=== PATIENT | male | born 1960 | race Caucasian/White ===

== ENCOUNTER 2025-07-03 18:24 | Emergency (ER) | payer MEDICAID, SELFPAY ==
--- OUTSIDE RECORDS SUMMARY | 2025-06-12 00:52 | XMS_ITS | Encounter Summary ---
Author Organization [employer] Address [address] [place] [address] Care Team Providers Care Wind Turbine Performance Engineer Name Role Phone Unavailable Primary Care Provider Unavailabl e Reason for Referral * Eval and Treat (Routine) - Closed Specialty Diagnoses / Procedures Referred By Contac t Referred To Contact Diagnoses ST elevation myocardial infarction (STEMI), unspecified artery (CMS/HCC) Ischemic dilated cardiomyopathy (CMS/HCC) S/P coronary artery stent placement Paroxysmal atrial fibrillation (CMS/HCC) Acute pulmonary edema (CMS/HCC) Acute hypoxemic respiratory failure (CMS/HCC) Procedures GA OFFICE/OUTPATIENT ESTABLISHED MOD MDM 30 MIN GA OFFICE/OUTPATIENT NEW MODERATE MDM 45 MINUTES Issac Rico MD [address] [place] [phone] Phone: tel: fax: Referral ID Status Reason Start Date Expiration Date Visits Re quested Visits Authorized [id number] Closed 06/27/2025 06/27/2026 1 1 INUOUS MINER OPERATOR HELPER * Eval and Treat (Routine) - Authorized Specialty Diagnoses / Procedures Referred By Contac t Referred To Contact Diagnoses CHB (complete heart block) (CMS/HCC) Procedures GA OFFICE/OUTPATIENT ESTABLISHED MOD MDM 30 MIN GA OFFICE/OUTPATIENT NEW MODERATE MDM 45 MINUTES Issac Rico MD [address] [place] [phone] Phone: tel: fax: Referral ID Status Reason Start Date Expiration Date V isits Requested Visits Authorized [id number] Authorized 06/27/2025 06/27/2026 1 1 INUOUS MINER OPERATOR HELPER * Eval and Treat (Routine) - Authorized Specialty Diagnoses / Procedures Referred By Contac t Referred To Contact Cardiology Diagnoses ST elevation myocardial infarction (STEMI), unspecified artery (CMS/HCC) Ischemic dilated cardiomyopathy (CMS/HCC) S/P coronary artery stent placement Paroxysmal atrial fibrillation (CMS/HCC) Acute pulmonary edema (CMS/HCC) Acute hypoxemic respiratory failure (CMS/HCC) Procedures GA OFFICE/OUTPATIENT ESTABLISHED MOD MDM 30 MIN GA OFFICE/OUTPATIENT NEW MODERATE [place] [address] [place] [phone] Phone: tel: fax: [address] [place] [phone] Phone: tel: fax: Referral ID Status Reason Start Date Expiration Date V isits Requested Visits Authorized [id number] Authorized 06/27/2025 06/27/2026 1 1 INUOUS MINER OPERATOR HELPER * Echocardiography (Routine) - Open Specialty Diagnoses / Procedures [facility] Referred To Contact Radiology Diagnoses Ischemic dilated cardiomyopathy (CMS/HCC) Procedures ECHO COMPLETE - CONTRAST AND STRAIN IF INDICATED ECHO COMPLETE - CONTRAST AND STRAIN IF INDICATED GA ECHO TTHRC R-T 2D W/WOM-MODE COMPL SPEC&COLR D GA MYOCRD STRAIN IMG SPECKLE TRCK ASSID MYOCRD [facility] GA TTE W OR WO MARK JONES Sunthosh, MD [address] [facility] [address] [place] [phone] Phone: tel: fax: [facility] [place] [address] [place] [address] Phone: tel: fax: Referral ID Status Reason Start Date Expiration Date V isits Requested Visits Authorized [id number] Open SGF CTS to Schedule 06/21/2025 07/22/2026 1 1 Reason for Visit * Reason Comments post code * Auth/Cert (Routine) Specialty Diagnoses / Procedures Referred By Contac t Referred To Contact Critical Care Medicine Prince Farr MD [address] [phone] Phone: tel: fax: [facility] 3E Surgical Intensive Care [address] [place] [address] Phone: tel: fax: Referral ID Status Reason Start Date Expiration Date Visits Re quested Visits Authorized [id number] 1 1 Encounter Details Date Type Department Care Team (Late st Contact Info) Description 06/12/2025 1:52 AM CDT - 06/27/2025 1:59 PM CONTINUOUS MINER OPERATOR HELPER Hospital Encounter [facility] 4A Cardiac [address] [place] [address] Doreen Ambrocio MD [address] [facility] [address] [place] [address] Prince Farr MD [address] [place] [address] Charles Magana MD [address] [facility] [address] [place] [address] Zenaida Michel MD [address] [place] [address] Karlie Hamilton MD [address] [place] [address] Ebony Lopez MD [address] [place] [address] Rafi Hackett MD [address] [place] [address] Issac Rico MD [address] [place] [address] ST elevation myocardial infarction involving right coronary artery (CMS/HCC) Discharge Disposition: Left Against Medical Advice Social History Tobacco Use Types Packs/Day Years Used Date Smoking Tobacco: Every Day Cigarettes Food Insecurity Answer Date Recorded Do you find you are eating l ess than you should because you can t pay for food? No 06/21/2025 Transportation Needs Answer Date Record ed Have you gone without health care because you didn t have a way to get there? Or worry about transportation for future doctor visits, lease picker medication, etc.? No 2024 Housing Stability Answer Date Recorded Do you worry you won t have a steady place to sleep or struggle to pay rent or mortgage? No 06/21/2025 Utility Needs Answer Date Recorded Do you have difficulty payin g for utility costs (electric, water or gas bills)? No 06/21/2025 Medication Needs Answer Date Recorded Have you skipped taking medi cation due to cost or worry you can t afford new medications? No 06/21/2025 Feeling Safe Answer Date Recorded Are you in a relationship wi th someone who hurts you emotionally and/or physically? No 06/21/2025 Food Insecurity Answer Date Recorded Patient needs follow up regardin 06/17/2025 Transportation Needs Answer Date Record ed Patient needs follow up regardin 06/17/2025 Utility Needs Answer Date Recorded Patient needs follow up regardin 06/17/2025 Sex and Gender Information Value Date Recorded Sex Assigned at Not on file Legal Sex Male 11:17 PM CDT Gender Identity Not on file Sexual Orientation Not on file documented as of this encounter Last Filed Vital Signs Vital Sign Reading Time Taken Comments Blood Pressure 110/61 06/27/2025 11:45 AM CONTINUOUS MINER OPERATOR HELPER Pulse 75 06/27/2025 11:45 AM CONTINUOUS MINER OPERATOR HELPER Temperature 36.8 C (98.2 F) 06/27/2025 11:45 AM CONTINUOUS MINER OPERATOR HELPER Respiratory Rate 24 06/27/2025 11:45 AM CONTINUOUS MINER OPERATOR HELPER Oxygen Saturation 97% 06/27/2025 11:45 AM CONTINUOUS MINER OPERATOR HELPER Inhaled Oxygen Concentration - - Weight 86.9 kg (191 lb 9.3 oz) 06/27/2025 3:50 A M CONTINUOUS MINER OPERATOR HELPER Height 172.7 cm (5' 8 ) 06/26/2025 3:21 PM CDT Body Mass Index 29.13 06/26/2025 3:21 PM CDT documented in this encounter Discharge Instructions * Discharge Instructions* Luisa Ya RN - 06/12/2025 7:36 AM CDT Cardiopulmonary Rehab Outpatient Referral Information: As part of your ongoing cardiac care, you are being referred to outpatient cardiac rehab. You will be contacted by the facility for appointment date and time. If you do not hear from the facility in a timely manner, please feel free to contact them at the phone number listed below. Cardiopulmonary Rehab Facility: [address] [address] Thank you for participating in your heart failure education. It's really important to know how to take care of your heart! If you have any questions or need help, please ask us anytime. Heart Failure means that your heart does not pump enough blood to meet your body???s needs. Sometimes fluid can back up into your lungs causing shortness of breath. Or fluid can back up into other parts of your body--you may notice swelling in your legs, feet or in your stomach area. As you retain fluid, your weight will go up. You may feel tired and not feel like eating. Most people tend to havethe same symptoms each time their heart failure worsens. Important steps you can take to be healthy Follow a low salt diet by using a salt substitute to season your food, choosing low or no salt foods and not adding additional salt to your meals. Monitor fluid intake. Restrict fluids if ordered by your provider. Take your medications as instructed Try to stay active. Rest when tired. If you are a SMOKER or use TOBACCO products, you are advised to QUIT! Heart failure zones give you an easy way to see changes in your heart failure symptoms. They also tell you when you need to get help. Check every day to see which zone you are in: HEART FAILURE ZONE MANAGEMENT EVERYDAY: Weigh yourself in the morning after going to the bathroom but before eating or drinking. Record your weight on your CHF Daily Record Sheet (in your Living With Heart Failure booklet) and compare it to the prior day???s weight. Take your medicine as prescribed. Check your feet, ankles, legs, and abdomen for swelling. Assess your breathing (was it difficult to lay flat or are you more short of breath). Eat low salt food. Balance activity and rest periods. What Heart Failure Zone are you today? GREEN, YELLOW, or RED? GREEN ZONE: All CLEAR when: Your weight is stable. You have no trouble breathing. You can do your normal activity. You have no changes in your symptoms. YELLOW ZONE: CAUTION! Call your health care provider today: Your Primary Care Team is available 18/03. Your weight goes up 2 pounds in one day or 5-at-7-pound gradual weight gain over a week. You have more swelling in your feet, ankles, legs, or abdomen. Increased shortness of breath. You have a dry cough that does not go away. You use 2 or more pillows or a recliner to breathe better at night and this is new for you. You feel more tired or have less energy than usual. You have SIDE EFFECTS from your medicines. RED ZONE: MEDICAL ALERT EMERGENCY! CALL RIGHT AWAY when: You have unrelieved shortness of breath at rest or struggling to breathe. You have unrelieved chest pain. You have unrelieved wheezing or chest tightness at rest. You are having confusion or cannot think clearly. CALL 911 for severe shortness of breath or chest pain that will not go away. * Attachments The following attachments cannot be sent through Care Everywhere. * Healthy Diet: Heart (Albanian) * Low Sodium Diet (Albanian) * Heart Failure: Restricting Fluids: General Info (Albanian) * Cardiac Rehabilitation (Albanian) * PCI (Percutaneous Coronary Intervention): General Info (Albanian) documented in this encounter Medications at Time of Discharge apixaban (ELIQUIS) 5 mg tablet Take 2 Tablets (10 mg) by mouth 2 times daily for 4 days, THEN take 1 Tablet (5 mg) by mouth 2 times daily. Continue taking until advised by PCP/cardiologis t to stop 76 Tablet 1 06/27/2025 1:30 PM CONTINUOUS MINER OPERATOR HELPER 07/02/2025 aspirin (SNOW CHEWABLE) 81 mg Tablet, Chewable Take 1 Tablet (81 mg) by mouth daily for 17 days. Take until 07/15/2025 only 17 Tablet 06/27/2025 1:30 PM CONTINUOUS MINER OPERATOR HELPER 06/28/2025 furosemide (LASIX) 40 mg tablet Take 1 Tablet (40 mg) by mouth daily. 30 Tablet 1 06/27/2025 1:30 PM CONTINUOUS MINER OPERATOR HELPER 06/28/2025 losartan (COZAAR) 25 mg tablet Take ONE-HALF Tablet (12.5 mg) by mouth daily. 30 Tablet 06/27/2025 1:30 PM CONTINUOUS MINER OPERATOR HELPER 06/28/2025 nitroglycerin (NITROSTAT) 0.4 mg Tablet, Sublingual Place 1 Tablet (0.4 mg) under tongue every 5 minutes as needed for Chest Pain (Not to exceed 3 doses, notify physician if chest pain not relieved, hold if systolic BP less than or equal to 90 mmHg). 25 Tablet 06/27/2025 1:30 PM CONTINUOUS MINER OPERATOR HELPER 06/27/2025 rosuvastatin (CRESTOR) 20 mg tablet Take 1 Tablet (20 mg) by mouth daily at bedtime. 30 Tablet 1 06/27/2025 1:30 PM CONTINUOUS MINER OPERATOR HELPER 06/27/2025 spironolactone (ALDACTONE) 25 mg tablet Take ONE-HALF Tablet (12.5 mg) by mouth daily. 30 Tablet 06/27/2025 1:30 PM CONTINUOUS MINER OPERATOR HELPER 06/28/2025 ticagrelor (BRILINTA) 90 mg Tablet Take 1 Tablet (90 mg) by mouth 2 times daily. 60 Tablet 1 06/27/2025 1:30 PM CONTINUOUS MINER OPERATOR HELPER 06/27/2025 apixaban (ELIQUIS) 5 mg tablet Take 2 Tablets (10 mg) by mouth 2 times daily for 4 days. 16 Tablet 06/27/2025 documented as of this encounter Progress Notes * Chaz Tony RN - 06/27/2025 1:29 PM CST Patient agitated at doctor wanting him to stay radha see EP doctor. Patient adamant about going AMA. Pt does not wait for staff to process him out of the unit and removes both oif his IV's (witnessed by floor staff ACCOUNTING MANAGER) and walks off unit. Pt spouse remains to lease picker medications. AMA and AVS forms not signed by patient or spouse. INUOUS MINER OPERATOR HELPER INUOUS MINER OPERATOR HELPER * Chaz Tony RN - 06/27/2025 12:45 PM CST Patient ambulatory in hallway with [facility] and on 2L O2. Pt ambulated approx 150 ft. Pt maintained sats 93% during the walk. INUOUS MINER OPERATOR HELPER * Ramiro Gtz RT - 06/27/2025 10:46 AM CST Images from the original note were not included. Patient educated regarding Definity ultrasound contrast and verbalizes positive understanding. Definity administered per policy. Patient free from complaints throughout procedure. [facility] PHYSICIAN ORDERS # [id number] [id number] ECHOCARDIOGRAPHY PROTOCOL FOR USE OF ECHOCARDIOGRAPHIC IMAGE ENHANCING AGENT (DEFINITY) This protocol is to be used during an Echocardiogram when a patient is technically difficult to image (as defined by [place] Society of Echocardiography guidelines - the inability to detect two or more contiguous segments in any three of the apical views) or when left ventricular thrombus is suspected. Verify consent to treat has been signed and explain the procedure to the patient. Confirm that the patient does not have a known allergy or hypersensitivity to Definity Perflutren Lipid Microspheres or its components such as polyethylene glycol (PEG). Patient indicated he was not allergic and wanted to have the contrast. Enter order for Definity into Electronic Health Record ???per protocol?? (will require interpreting wire saw operator to sign). Trained Echo Technologists may proceed with use of echocardiographic image enhancing agent. [facility] currently utilizes Definity (perflutren lipid microspheres). Administer Definity per Echocardiography Policy and Procedure #251 Administration of Ultrasound Contrast as follows: 1.3 mL of activated Definity (perflutren lipid microspheres) diluted with 8.7 mL of preservative-free saline in a 10 mL syringe Initial injection of up to 3mL administered slowly (subsequent injection of 1 to 2 mL as needed) References: Definity Prescribing Information package insert; Revised May 2011 http://www.[employer]/pdf/Definity%20US%20PI%52320892-7246% .pdf ASE Consensus Statement - [place] Society of Echocardiography Consensus Statement on the Clinical Applications of Ultrasonic Contrast Agents in Echocardiography; TRICIA, June 2008 http://www.asecho.org/files/public/ContrastConsensusStatement.pdf www.[employer]/how-administration.html Approved by: Medication Management Committee Initiated: 12/26/2011 Revised: 01/02/2024 Expires: INUOUS MINER OPERATOR HELPER * Anyi López FNP - 06/27/2025 8:56 AM CST CARDIOLOGY PROGRESS NOTE Patient: Isaac Franklin / 65 y.o. / male/ 1960 Today's Date: 06/27/2025 Chief complaint/ Admitting Diagnosis STEMI SUBJECTIVE: Mr. Franklin tired. Didn;t sleep well last night or the night before. Leaving today, not staying anylonger. Denies cv complaints. OBJECTIVE: BP (!) 140/67 (BP Location: Right arm, Patient Position (BP): Supine) Pulse 77 Temp 97.1 ??F (36.2 ??C) (Temporal) Resp 22 Ht 5' 8 (1.727 m) Wt 86.9 kg (191 lb 9.3 oz) SpO2 95% BMI 29.13 kg/m?? The range of BP in the last 24 hours is:BP: (107-140)/(60-70) Intake/Output Summary (Last 24 hours) at 06/27/2025 0856 Last data filed at 06/27/2025 0500 Gross per 24 hour Intake 550 ml Output 700 ml Net -150 ml GENERAL: a/o x3, no acute distress, cooperative LUNGS: respirations unlabored, breath sounds coarse. HEART: variable heart tones + murmur Abdomen: soft and non-tender. + BS Extremities: pulses palpable, no edema Data Review: Medications/ Allergies reviewed. Laboratory & imaging data reviewed CBC: Recent Labs 06/25/2545606/26/2553606/27/25 0151 WBC 16.8* 12.9* 13.2* HGB 9.4* 9.5* 9.8* PLT 527* 588* 608* BMP: Recent Labs 06/25/2545606/26/2553606/27/25 0151 GLUCOSE 151* 162* 161* BUN 30* 24* 24* CREAT 0.69 0.68 0.61* NA 135* 135* 135* K 3.6 3.7 3.8 CO2 24 24 23 Cardiac Tele: NSR rate 84 ASSESSMENT: Principal Problem: ST elevation myocardial infarction involving right coronary artery Active Problems: Cardiogenic shock (CMS/HCC) Acute diastolic heart failure Atrial fibrillation (CMS/HCC) Complete heart block (CMS/HCC) Cardiac arrest with ventricular fibrillation (CMS/HCC) CHB (complete heart block) ST elevation myocardial infarction (STEMI) Acute pulmonary edema (CMS/HCC) Acute hypoxemic respiratory failure (CMS/HCC) Lactic acidosis Laboratory test Patient receiving extracorporeal membrane oxygenation (ECMO) Diabetes mellitus S/P coronary artery stent placement Ventricular tachycardia (CMS/HCC) AV block Ischemic dilated cardiomyopathy (CMS/HCC) PLAN: 65-year-old male who initially presented to an outside hospital with inferior STEMI 06/12/25, had V-fib arrest requiring defibrillation and cardiopulmonary resuscitation, intubated and sedated and transferred to earthmoving labourer. He underwent temp pacing wires for complete heart block on EKG by EMS followed by primary PCI of the right coronary artery with IABP support. Post PCI, he had incessant VT with prolonged resuscitation efforts requiring ECMO support. He went back to the earthmoving labourer the following day for new EKG changes associated with acute to subacute in-stent thrombosis which was treated balloon angioplasty under IVUS guidance. Over the past week he has been weaned off inotropes/vasopressors, lidocaine, VA ECMO, IABP, temporary pacemaker, vent. His LVEF was 25% on arrival and most recently improved to 45%. --VT incessant prior to PCI and recurrent post- resolved. Amiodarone discontinued for concerns of bradycardia with AV block. VT likely ischemically mediated with stabilization post PCI. Appreciate EPconsultation. Recommend life vest on discharge. Recheck EF today- limited echo. --Acute hypoxic respiratory failure. Improved. Needs walk test for O2 requirements. --Acute encephalopathy. Resolved. -- Cardiogenic shock- Resolved. Off IABP, ECMO, pressors --Ischemic cardiomyopathy EF 25% on arrival 45% post ECMO. Repeat limited echo. Continue losartan 1/2 dose. Metoprolol discontinued for transient heart block. Lasix reduced to oral. --STEMI- s/p primary PCI prox to mid RCA 06/12/25 ---Acute to subacute instent thrombosis s/p POBA 06/13/25. Continue dual antiplatelet therapy with aspirin 81 mg daily for one month and ticagrelor 90 mg twice daily for at least 1 year since PCI andthen monantiplatelet therapy thereafter unless prohibitive. Continue high intensity statin. ---Acute DVT- Eliquis DVT protocol. -- Paroxysmal atrial fibrillation. Metoprolol d/c'd for transient heart block. Continue Eliquis. >> pt to be on triple therapy continuing aspirin through 1 month post PCI given thrombus burden. Transient AV block with HR 40; event monitor on discharge. Ordered. Cosigned by Aaron Carr MD at 06/27/2025 4:59 PM CONTINUOUS MINER OPERATOR HELPER INUOUS MINER OPERATOR HELPER INUOUS MINER OPERATOR HELPER * Issac Rico MD - 06/26/2025 12:41 PM CDT Images from the original note were not included. Your life is our life's work [facility] Hospitalist/Hospital Medicine Progress Note LOS: 14 days Room/Bed: [facility]/ Patient name: Isaac Franklin Date of : 1960 HOSPITAL COURSE SUMMARY: 65-year-old male admitted to the ICU on 06/12/2025 with inferior STEMI, VF arrest, cardiogenic shock s/p left heart cath with AMBER to the RCA and placement of IABP further complicated by development of refractory VT requiring emergent bedside VA cannulation on 06/12 On 06/13, EKG showed worsening ST elevations and he was taken back to the Intramural Director and found to have acute in-stent thrombosis of the RCA with 100% occlusion now s/p IVUS guided balloon angioplasty and successful removal and reinsertion of IABP. There was concern for poor absorption of DAPT and he was started on Aggrastat gtt.for 18 hours Off pressors and ionotropes since 06/14 Liberated from VA ECMO on 06/17 IABP explanted and extubated 06/19 Heparin gtt discontinued 06/19 ketamine weaned off on 06/21. Hemodynamics are stable TTE on 06/16 with improved EF to 45% Continue diuresis. Renal function remains stable LFTs have normalized Patient was very agitated, and was maintain on ketamine and pracedex gtt. Ketamine has been discontinued since 06/21. Continue Geodon, continue Seroquel, start gabapentin, continue PRN clonazepam. Wean off precedex today. 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 Cardiology is also on board, losartan added by them. Respiratory status is stable. He has a strong cough.Encourage aerobika use when less agitated. Physical therapy recommending IPR at ICU timeline: 06/12: Admitted to the ICU, cardiac arrest, eCPR with pVA cannulation 06/13: Return to the Intramural Director for acute in-stent thrombosis of the RCA s/p angioplasty 06/16: ECMO flows decreased to 2-2.5L 06/17: Liberated from VA ECMO 06/19: Extubated, IABP explanted 06/22: transferred to stepdown Floor timeline 06/23: Mentation improved to AAO x 3 with prompting today, per bedside RN had episodes of agitationovernight; possibly hospital-acquired delirium/owning. Discussed with RN to wean off Precedex gtt gradually. Continuing quetiapine 50 mg every 8 hourly, ziprasidone 20 mg twice daily. Will obtain PULVERIZER MILL OPERATOR evaluation for swallowing safety and discontinue NG tube once consistent p.o. intake with stable mentation. Will consider switching IV heparin gtt. to p.o. apixaban once mentation stabilized. Intermittent low BP, relatively stabilizing at 100-110s/60s-70s. Remains on 3 L O2 via nasal cannula. Leukocytosis of 21.7, Hb relatively stable, creatinine stable. 06/24: Mentation this a.m. remains improved and is AO x 3. Discussed with RN; plan to wean off Precedex gtt. by the afternoon. Underwent MBS and cleared by PULVERIZER MILL OPERATOR for trial of general feeding; NG tube removed and will be monitored for consistent p.o. intake. Will switch IV heparin gtt. to p.o. apixaban; Dopplers obtained due to leukocytosis shows acute left DVT; heparin switched to VTE protocol and apixaban to be started at 10 mg twice daily for 7 days followed by 5 mg twice daily for at least 3 months as likely in the setting of prolonged immobility. Leukocytosis markedly uptrending; 15->21->29.2 in last 3 days. Afebrile however and no new symptoms suggestive of infection; no dysuria, diarrhea, does have difficulty clearing secretions but not worse over the last few days. Obtaining CT chest/abdomen/pelvis and depending on chest appearancewill consider repeating sputum culture, also obtaining repeat blood culture, urinalysis. Also obtaining Dopplers as noted above and peripheral blood smear. 06/25: Blood cultures in process, CT C/A/P pending, blood smear pending. WBC improved to 16.8; possibly related to acute left DVT which was being undertreated with heparin on A-fib protocol. Mentation significantly improving, weaned off from Precedex drip; will discontinue order. EKG today with YCl119 ms; will discontinue ziprasidone and reduce quetiapine dosage to 50 mg twice daily. Tolerating diet and p.o. medications well. 06/26: CT C/A/P was switched to CTA chest, reportedly for technical reasons by radiology. CTA chest shows no PE, diffuse ground glass opacities suggesting edema or atypical pneumonitis. Afebrile, obtain procalcitonin minimal at 0.10, WBC continues to improve to 12.9 on antibiotics hence most likely an infectious cause. Will defer restarting antibiotics. Cardiology managing diuresis; Lasix switchedto oral. Metoprolol discontinued due to transient AV block. QTc remains prolonged at 532, will discontinue quetiapine. Overall vitals stable and mentation significantly improved, PT/OT now recommending home with assistance. Will transfer out of stepdown to medical telemetry. Consultants: IP CONSULT TO CARDIAC REHAB IP CONSULT TO SOCIAL WORK IP CONSULT TO CARDIAC REHAB IP CONSULT TO NUTRITION SERVICES IP CONSULT TO ETHICS RESOURCE IP CONSULT TO IV TEAM IP CONSULT TO ELECTROPHYSIOLOGY IP CONSULT TO COMMUNITY HEALTH WORKER IP CONSULT TO ETHICS RESOURCE IP CONSULT TO CASE MANAGEMENT IP CONSULT TO PASTORAL SERVICES IP CONSULT TO IV TEAM IP CONSULT TO PASTORAL SERVICES SUBJECTIVE: Pt seen and examined at bedside. He is AAO x 3.. He does not voice any new complaints. He is tolerating diet well. He wishes to be discharged soon. OBJECTIVE: Temp (24hrs), Av.8 ??F (36.6 ??C), Min:97.2 ??F (36.2 ??C), Max:98.4 ??F (36.9 ??C) BP 109/60 Pulse 71 Temp 97.2 ??F (36.2 ??C) (Temporal) Resp 17 Ht 5' 8 (1.727 m) Wt 87 kg (191 lb 12.8 oz) SpO2 95% BMI 29.16 kg/m?? Intake/Output Summary (Last 24 hours) at 06/26/2025 1241 Last data filed at 06/26/2025 1100 Gross per 24 hour Intake 730 ml Output 1676 ml Net -946 ml Last documented weight: Weight: 87 kg (191 lb 12.8 oz) (06/26/25 0300) EXAM: General: alert, in no distress Neurologic: Grossly normal HEENT: atraumatic, Normocephalic, without obvious abnormality Lungs: clear to auscultation bilaterally, normal respiratory effort Heart: normal rate, regular rhythm, normal S1, S2, no murmurs, rubs, clicks or gallops Abdomen: Soft, non-tender. Bowel sounds normal. No masses, no organomegaly. Extremities: extremities normal, atraumatic, no cyanosis or edema, intact distal pulses, moves all extremities equally, no edema, redness or tenderness in the calves or thighs, normal strength, normal tone Skin: negative LABORATORY: Recent Labs 06/24/25 0338 06/25/257 06/26/25 0537 WBC 29.2* 16.8* 12.9* HGB 10.8* 9.4* 9.5* HCT 33.5* 28.9* 29.6* PLT 646* 527* 588* Recent Labs 06/24/25 0338 06/25/257 06/26/25 0537 NA 141 135* 135* K 3.7 3.6 3.7 CL 103 100 100 CO2 24 24 24 CA 9.3 8.7* 8.5* BUN 30* 30* 24* CREAT 0.70 0.69 0.68 GLUCOSE 185* 151* 162* No results for input(s): TOTALPROTEIN , ALBUMIN , BILITOTAL , ALKPHOS , AST , ALT in the last 72 hours. No results for input(s): INR , PT in the last 72 hours. Invalid input(s): PTT No results for input(s): BASETROP , 2HRTROP , DELTA , 6HRTROP in the last 72 hours. Diagnostic testing reviewed by me: Medications were reviewed by me. Current Facility-Administered Medications: furosemide (LASIX) tablet 40 mg, 40 mg, Oral, daily, Anyi López, STOCK PLAN ADMINISTRATOR, 40 mg at 06/26/25 0842 spironolactone (ALDACTONE) tablet 12.5 mg, 12.5 mg, Oral, daily, Anyi López, STOCK PLAN ADMINISTRATOR, 12.5 mg at 06/26/25 0842 [COMPLETED] iopamidoL (ISOVUE-300) 61% injection (drawn from multi-use bulk pack) 100 mL, 100 mL, IV, intra-proc ONE time, Issac Rico MD, 100 mL at 06/25/25 2155 [COMPLETED] iopamidoL (ISOVUE-300) 61% injection (drawn from multi-use bulk pack) 100 mL, 100 mL, IV, intra-proc ONE time, Issac Rico MD, 100 mL at 06/25/25 2312 [DISCONTINUED] QUEtiapine (SEROquel) tablet 50 mg, 50 mg, Oral, BID, Issac Rico MD, 50 mg at 06/26/25 0842 apixaban (ELIQUIS) tablet 10 mg, 10 mg, Oral, BID, Trisha, Jeesanul, MD, 10 mg at 06/26/25 0842 [START ON 07/01/2025] apixaban (ELIQUIS) tablet 5 mg, 5 mg, Oral, BID, Issac Rico MD iopamidoL (ISOVUE-300) 61% injection (drawn from multi-use bulk pack) 85 mL, 85 mL, IV, intra-proc ONE time, Issac Rico MD sodium chloride flush injection 10 mL, 10 mL, IV, every 5 minutes PRN, Issac Rico MD losartan (COZAAR) tablet 12.5 mg, 12.5 mg, Oral, daily, Prince Farr MD, 12.5 mg at 06/26/25 0841 clonazePAM (KlonoPIN) tablet 0.25 mg, 0.25 mg, Oral, every 6 hours PRN, Ebony Lopez MD, 0.25 mg at 06/24/25 0334 [DISCONTINUED] gabapentin (NEURONTIN) 300 mg/6 mL (6 mL) oral solution 400 mg, 400 mg, Oral, every 8 hours, Ebony Lopez MD, 400 mg at 06/26/25 0405 [DISCONTINUED] dexmedeTOMIDine in dextrose 5% (PRECEDEX) 400 mcg/100 mL (4 mcg/mL) infusion, 0-0.8 mcg/kg/hr, IV, titrate, Ebony Lopez MD, Stopped at 06/25/25 1509 [DISCONTINUED] metoprolol (LOPRESSOR) 5 mg/5 mL injection 2.5 mg, 2.5 mg, IV, ONE time only, Ebony Lopez MD [DISCONTINUED] metoprolol tartrate (LOPRESSOR) tablet 12.5 mg, 12.5 mg, Oral, BID, Prince Farr MD, 12.5 mg at 06/26/25 0841 sennosides-docusate sodium (SENNA-S) 8.6-50 mg per tablet 1 Tablet, 1 Tablet, Oral, BID, Ebony Lopez MD, 1 Tablet at 06/26/25 0842 [DISCONTINUED] furosemide (LASIX) injection 40 mg, 40 mg, IV, BID, 7 hours apart, Karlie Hamilton MD, 40 mg at 06/25/25 0809 albuterol (PROVENTIL,VENTOLIN) 2.5 mg /3 mL (0.083 %) inhalation solution 2.5 mg, 2.5 mg, Inhalation, resp, every 4 hours PRN, Karlie Hamilotn MD sodium chloride flush injection 5 mL, 5 mL, IV, BID, Karlie Hamilton MD, 5 mL at 06/26/25 0841 dextrose 5 % - sodium chloride 0.9 % infusion, , IV, see admin instructions, Karlie Hamilton MD insulin lispro (HumaLOG,ADMELOG) injection 0-18 Units, 0-18 Units, subCUT, every 4 hours, Karlie Hamilton MD, 3 Units at 06/25/252020 dextrose 5 % in water 250 mL flush bag 25 mL, 25 mL, IV, see admin instructions, Prince Farr MD atropine injection 0.5 mg, 0.5 mg, IV, every 5 minutes PRN, Prince Farr MD nitroglycerin (NITROSTAT) tablet 0.4 mg, 0.4 mg, Sublingual, every 5 minutes PRN, Prince Farr MD polyethylene glycol (MIRALAX) packet 17 Gram, 17 Gram, Oral, BID, Karlie Hamilton MD, 17 Gram at 06/24/25 09 ondansetron (ZOFRAN) 4 mg/2 mL injection 4 mg, 4 mg, IV, every 6 hours PRN, Zenaida Michel MD naloxone (NARCAN) 0.4 mg/mL injection 0.1-0.4 mg, 0.1-0.4 mg, IV, see admin instructions, Prince Farr MD aspirin (SNOW CHEWABLE) chewable tablet 81 mg, 81 mg, Oral, daily, Prince Farr MD, 81 mg at 06/26/25 08 ticagrelor (BRILINTA) tablet 90 mg, 90 mg, Oral, BID, Prince Farr MD, 90 mg at 06/26/25 08 rosuvastatin (CRESTOR) tablet 20 mg, 20 mg, Oral, daily BEDTIME, Prince Farr MD, 20 mg at 06/25/252024 naloxone (NARCAN) 0.4 mg/mL injection 0.1-0.4 mg, 0.1-0.4 mg, IV, see admin instructions, Love Gonzalez NP [] SODIUM BICARBONATE 1 MEQ/ML (8.4 %) INTRAVENOUS SOLUTION (CABINET OVERRIDE), , , , sodium chloride 0.9 % bolus solution 250 mL, 250 mL, IV, ONE time only, Charles Magana MD [] HEPARIN (PORCINE) 1,000 UNIT/ML INJECTION SOLUTION (CABINET OVERRIDE), , , , sodium chloride flush injection 10 mL, 10 mL, IV, BID, Zenaida Michel MD, 10 mL at 06/26/25 0841 Primary discharge diagnosis: ST elevation myocardial infarction involving right coronary artery Other active medical issues also addressed during this admission: Active Hospital Problems Diagnosis Ischemic dilated cardiomyopathy (CMS/HCC) Atrial fibrillation (CMS/HCC) S/P coronary artery stent placement Ventricular tachycardia (CMS/HCC) AV block Acute diastolic heart failure Diabetes mellitus Laboratory test Patient receiving extracorporeal membrane oxygenation (ECMO) Cardiogenic shock (CMS/HCC) Complete heart block (CMS/HCC) ST elevation myocardial infarction involving right coronary artery Cardiac arrest with ventricular fibrillation (CMS/HCC) CHB (complete heart block) ST elevation myocardial infarction (STEMI) Acute pulmonary edema (CMS/HCC) Acute hypoxemic respiratory failure (CMS/HCC) Lactic acidosis Resolved Hospital Problems No resolved problems to display. ASSESSMENT AND PLAN: STEMI involving RCA s/p coronary artery stent placement P/W two days of worsening chest pain, found to have inferior STEMI on EKG Cardiac catheterization revealed 100% thrombotic occlusion of the proximal right coronary artery s/p AMBER he sustained a ventricular fibrillation arrest at the outside hospital, requiring defibrillation and CPR, and was transferred for emergent intervention. Subsequently developed acute in-stent thrombosis with 100% occlusion, s/p IVUS- guided balloon angioplasty Briefly on IV argatroban gtt. due to concern for poor antiplatelet absorption Echo with initial EF 25%, improved on repeat echo 05/2020 2 to 45% Currently chest pain-free - Continue aspirin 81 mg and ticagrelor 90 mg twice daily - Continue metoprolol tartrate 12.5 mg twice daily - Continue rosuvastatin 20 mg nightly - Continue as needed nitroglycerin - Cardiology on board; appreciate recommendations - recommends triple therapy for 1 month from PCI I.e. till 07/15 and thereafter Brilinta plus Eliquis Cardiac Arrest s/p ROSC Ventricular Fibrillation Pt experienced multiple episodes of ventricular fibrillation following cardiac arrest requiring prolonged resuscitation, multiple rounds of defibrillation, and antiarrhythmic therapy including amiodarone and lidocaine. Temporary transvenous pacemaker were utilized for refractory arrhythmia and complete heart block Weaned off lidocaine and later amiodarone was discontinued following electrophysiology consultationwho deemed it to be ischemically mediated Vtach now resolved since revascularization - Will need LifeVest at discharge - Cardiology on board; appreciate recommendations Paroxysmal atrial fibrillation Recent EKG shows A-fib rhythm, currently HR controlled - Was on metoprolol tartrate, now discontinued by cardiology due to transient AV block - Switched IV heparin gtt. to apixaban; currently on therapeutic dose for DVT - Optimize electrolytes - keep K > 4 and Mg > 2 Cardiogenic Shock; resolved Developed cardiogenic shock, requiring high-dose vasopressors and mechanical support with IABP and VA ECMO. Liberated from VA ECMO on 06/17, IABP explanted 06/19 Remains off ionotropes and pressors. Hemodynamics relatively stabilizing - Continue telemetry monitoring Complete Heart Block and Bradyarrhythmias Developed complete heart block during his initial presentation and intervention, managed with a temporary transvenous pacemaker. Subsequently had intermittent 2:1 AV block and junctional escape rhythms, with episodes of bradycardia and artifact on telemetry. After stabilization and discontinuation of amiodarone, no further sustained arrhythmias were noted - Cardiology on board; appreciate recommendations Acute decompensation of heart failure with now midrange ejection fraction Initial echo 06/14 with EF 20-25% in the setting of acute STEMI Repeat echo 06/16 with EF improvement to 45% Volume status improving with diuresis Most recent CXR 06/21 with persistent patchy airspace disease pulmonary edema - Monitor volume status clinically - Continue diuresis; IV Lasix switched to p.o. Lasix 40 mg daily - Monitor renal function and electrolytes while on diuresis - GDMT limited in the setting of borderline BP; for now continue losartan 12.5 mg daily - Strict I's and O's, daily weights, Na < 2 g, Fluids < 1.5 L restricted diet - Cardiology on board; appreciate recommendations Acute Hypoxemic Respiratory Failure Secondary to pulmonary edema currently, had pneumonia earlier Initially requiring intubation and mechanical ventilation, extubated 06/19 Supplemental O2 requirements improving with diuresis CTA chest 06/26 showing diffuse interstitial and pulmonary ground glass opacities suggesting edema or atypical pneumonitis - Diuresis as above - Low concern for infectious pneumonitis has already treated with antibiotics and WBC downtrending off of antibiotics - Frequent oral suctioning for secretion clearance - Wean down supplemental O2 as tolerated Acute metabolic encephalopathy; improving Likely multifactorial in the setting of cardiac arrest, critical illness, recent sedating medications due to agitation In ICU required sedation with precedex, ketamine, ketamine discontinued, Precedex continued and started on quetiapine, ziprasidone and gabapentin Currently mentation AAO x 3 with prompting however per RN, increased episodes of agitation overnight; likely sundowning/hospital-acquired delirium EKG 06/25 with QTc 553 ms, quetiapine and ziprasidone gradually discontinued Was on Precedex gtt., now discontinued - Discontinue quetiapine - Discontinue ziprasidone - Discontinue gabapentin - Continue as needed clonazepam - Delirium precautions Dysphagia; improving Hx ileus Likely in the setting of encephalopathy and critical illnesses Also had ileus in the ICU, resolved with Relistor PULVERIZER MILL OPERATOR initially kept patient n.p.o., after MBS 06/24 has cleared for diet, NG tube removed - Appreciate PULVERIZER MILL OPERATOR - Tolerating current diet well; will monitor - Continue senna and MiraLAX Diabetes Mellitus HbA1c 6.3%. - Continue sliding scale correctional insulin; will switch to ACHS once able to take p.o. - Monitor POC BG and adjust insulin as appropriate Streptococcus pneumoniae and Haemophilus influenzae PNA Leukocytosis; improving PNA positive PCR for Streptococcus pneumoniae and Haemophilus influenzae. Treated empirically with vancomycin and cefepime for 72 hours, then narrowed to ceftriaxone to complete 7-day course Initially WBC improving, however now trending up 15->21->29.2 Doppler 06/24 showed acute left DVT however unclear if sole trencher driver of leukocytosis - no new infectious symptoms currently although does have difficulty clearing secretions CT C/A/P was ordered however changed to CTA chest for unclear technical reasons by radiology CTA chest with diffuse GGO suggestive of edema, less likely infectious etiology given consistently improving leukocytosis off of antibiotics Peripheral blood smear with leukocytes with toxic granulations, myeloid precursors or blasts not seen, platelets increased in number - Monitor fever curve, leukocyte count - Repeat blood cultures in process; no growth in 48 hours - Repeat UA not yet collected - Address VTE as below; if leukocytosis does not improve then will consider infectious disease consultation Thrombocytosis Likely reactive due to above - Will monitor Acute left DVT Seen on workup for leukocytosis - Transitioned from IV heparin to p.o. apixaban 10 mg twice daily from tonight for 7 days and thereafter 5 mg twice daily Normocytic anemia Hb 9.9; relatively stable - Will monitor - Outpatient workup with PCP Nutrition Status: Provider Assessment/Plan: Symptoms/Signs/Physical Exam: Poor Appetite and Weight Loss Etiology: Acute illness and Chronic illness Nutrition Treatment Plan: - Current Diet and/or Nutritional Supplementation ordered: DIET GENERAL Effective Now - Daily weights Impact of Malnutrition on patient condition and outcomes: Increased risk of infection and Delayed recovery DVT prophylaxis: DVT Pharmacologic Prophylaxis: heparin in 0.45% NaCl 25,000 unit/250 mL infusion [[id number]] Code status: Full Code Outpatient follow up: PCP, Cardiology Anticipated Disposition Location: Likely home Timeframe: 06/27/2025 Criteria: Weaned down from supplemental O2/stable O2 requirements, stable leukocytosis, stable mentation and oral intake MDM complexity: [] Mild [x] Moderate [] High Issac Rico MD 06/26/2025, 12:41 PM * Anyi López FNP - 06/26/2025 10:46 AM CDT CARDIOLOGY PROGRESS NOTE Patient: Isaac Franklin / 65 y.o. / male/ 1960 Today's Date: 06/26/2025 Chief complaint/ Admitting Diagnosis STEMI SUBJECTIVE: Mr. Franklin tired. Didn;t sleep well last night. Denies cv complaints. OBJECTIVE: BP (!) 119/90 (BP Location: Right arm, Patient Position (BP): Supine) Comment: RN notified Pulse 74 Temp 98.2 ??F (36.8 ??C) (Temporal) Resp 16 Ht 5' 8 (1.727 m) Wt 87 kg (191 lb 12.8 oz) SpO2 93% BMI 29.16 kg/m?? The range of BP in the last 24 hours is:BP: (90-139)/(53-90) Intake/Output Summary (Last 24 hours) at 06/26/2025 1046 Last data filed at 06/26/2025 0800 Gross per 24 hour Intake 730 ml Output 1376 ml Net -646 ml GENERAL: a/o x3, no acute distress, cooperative LUNGS: respirations unlabored, breath sounds coarse. HEART: variable heart tones + murmur Abdomen: soft and non-tender. + BS Extremities: pulses palpable, no edema Data Review: Medications/ Allergies reviewed. Laboratory & imaging data reviewed CBC: Recent Labs 06/24/2533706/25/2545606/26/25 0537 WBC 29.2* 16.8* 12.9* HGB 10.8* 9.4* 9.5* PLT 646* 527* 588* BMP: Recent Labs 06/24/2533706/25/2545606/26/25 0537 GLUCOSE 185* 151* 162* BUN 30* 30* 24* CREAT 0.70 0.69 0.68 NA 141 135* 135* K 3.7 3.6 3.7 CO2 24 24 24 Cardiac Tele: NSR rate 84 ; transient heart block at during 7:00 hour this am. ASSESSMENT: Principal Problem: ST elevation myocardial infarction involving right coronary artery Active Problems: Cardiogenic shock (CMS/HCC) Acute diastolic heart failure Atrial fibrillation (CMS/HCC) Complete heart block (CMS/HCC) Cardiac arrest with ventricular fibrillation (CMS/HCC) CHB (complete heart block) ST elevation myocardial infarction (STEMI) Acute pulmonary edema (CMS/HCC) Acute hypoxemic respiratory failure (CMS/HCC) Lactic acidosis Laboratory test Patient receiving extracorporeal membrane oxygenation (ECMO) Diabetes mellitus S/P coronary artery stent placement Ventricular tachycardia (CMS/HCC) AV block Ischemic dilated cardiomyopathy (CMS/HCC) PLAN: 65-year-old male who initially presented to an outside hospital with inferior STEMI 06/12/25, had V-fib arrest requiring defibrillation and cardiopulmonary resuscitation, intubated and sedated and transferred to earthmoving labourer. He underwent temp pacing wires for complete heart block on EKG by EMS followed by primary PCI of the right coronary artery with IABP support. Post PCI, he had incessant VT with prolonged resuscitation efforts requiring ECMO support. He went back to the earthmoving labourer the following day for new EKG changes associated with acute to subacute in-stent thrombosis which was treated balloon angioplasty under IVUS guidance. Over the past week he has been weaned off inotropes/vasopressors, lidocaine, VA ECMO, IABP, temporary pacemaker, vent. His LVEF was 25% on arrival and most recently improved to 45%. --VT- resolved. Amiodarone discontinued for concerns of bradycardia with AV block. VT likely ischemically mediated with stabilization post PCI. Appreciate EP consultation. Recommend life vest on discharge. --Acute hypoxic respiratory failure. Improving- NC weaned down to 2L this am. --Acute encephalopathy. Resolved. -- Cardiogenic shock- Resolved. Off IABP, ECMO, pressors --Ischemic cardiomyopathy EF 45%. Continue losartan 1/2 dose. Stop metoprolol for transient heart block. Lasix reduced to oral. --STEMI- s/p primary PCI prox to mid RCA 06/12/25 ---Acute to subacute instent thrombosis s/p POBA 06/13/25. Continue dual antiplatelet therapy with aspirin 81 mg daily for one month and ticagrelor 90 mg twice daily for at least 1 year since PCI andthen monantiplatelet therapy thereafter unless prohibitive. Continue high intensity statin. ---Acute DVT- Eliquis DVT protocol. -- Paroxysmal atrial fibrillation. D/C metoprolol for transient heart block and continue Eliquis >> pt will be on triple therapy continuing aspirin through 1 month post PCI given thrombus burden. Transient AV block with HR 40; patient was awake but asymptomatic. D/C metoprolol and continue observation. Cosigned by Aaron Carr MD at 06/27/2025 4:57 PM CONTINUOUS MINER OPERATOR HELPER INUOUS MINER OPERATOR HELPER * Levi Fernandez, RT - 06/25/2025 8:17 PM CDT Order was changed from a C/A/P with contrast to a CTA chest per Dr. Wharton. Dr. hWarton was notified that Pt was not bowel prepped for CT scan. Personal Care Service Provider images were captured on the initial C/A/P order. * Sol Rice, RD - 06/25/2025 3:40 PM CDT Nutritional Status/Recommendations/Plan for Follow up: Po intake 40- 60% per doc flow indicator [place] requests/ preferences Estimated Needs: Estimated Energy Target: 1846-0204 (06/14/25 09) Estimated Protein Target: 105-140 (06/14/25 09) Estimated Fluid Target : 1750 (06/14/25 09) Nutrition Energy Formula: Calories per kilogram (06/14/25899) Weight Used for Formula: [place] weight (06/14/25899) Current diet/nutrition support: DIET GENERAL Effective Now Food/Meal: Breakfast (06/25/25857),Intake (%): (!) 40% (06/25/25857) Weight status/changes: Height: 5' 8 (172.7 cm) (06/22/25 1900) Weight: 88.1 kg (194 lb 3.6 oz) (06/25/25 0330) Last seven weights (if available) from 05/28/25 1541 to 06/25/25 1540 (Last 7 readings): Weight Weight Method 06/25/25 0330 88.1 kg (194 lb 3.6 oz) Actual 06/22/25 1900 86 kg (189 lb 9.5 oz) Actual 06/21/25 0300 94 kg (207 lb 3.7 oz) Actual 06/20/25 0300 93.1 kg (205 lb 4 oz) Actual 06/19/25 0400 98.5 kg (217 lb 2.5 oz) -- 06/18/25 0454 99.9 kg (220 lb 3.8 oz) Actual 06/17/25 0614 107.6 kg (237 lb 3.4 oz) Actual 06/17/25 0300 107.6 kg (237 lb 3.4 oz) Actual Admission:Weight: 107.4 kg (236 lb 12.4 oz) (06/13/25 06)Weight Method: Actual (06/13/25599) Body mass index is 29.53 kg/m??. [place] body weight: 68.4 kg (150 lb 12.7 oz) Adjusted ideal body weight: 76.3 kg (168 lb 2.7 oz) Nutrition Focused Exam Physical Findings- Summary: Malnutrition Nutrition Diagnosis: (at risk) (06/14/25899) Subcutaneous Fat Loss Assessment: No findings (06/14/25899) Muscle Wasting Assessment: No findings (06/14/25899) Edema: Normal contour with a barely perceptible pit (no findings) (06/14/25899) Hand Refrigeration Engine Operator: Unable to assess (sedated) (06/14/25899) Percentage of Energy: Other (see comments) (meeting <50% estimated needs ~2 days) (06/14/25899) Percentage of Weight Loss: No history of significant wt loss (06/14/25899) Additional assessment indices: Evaristo Score: 20 (06/25/25 0707) Last Bowel Movement (mm/dd/yyyy): 06/25/25 (06/25/25 1330) Stool Consistency - Reference [place] Stool Chart: soft - (type 4/5) (06/25/25 1330) Bowel Sounds: All Quadrants: hypoactive (06/23/25 2300) Allergies No Known Allergies Labs: Lab Results Component Value Date/Time NA 135 (L) 06/25/2025 04:57 AM K 3.6 06/25/2025 04:57 AM CL 100 06/25/2025 04:57 AM CO2 24 06/25/2025 04:57 AM CA 8.7 (L) 06/25/2025 04:57 AM BUN 30 (H) 06/25/2025 04:57 AM CREAT 0.69 06/25/2025 04:57 AM GLUCOSE 151 (H) 06/25/2025 04:57 AM TOTALPROTEIN 6.9 06/23/2025 02:49 AM ALBUMIN 2.9 (L) 06/23/2025 02:49 AM BILITOTAL 0.7 06/23/2025 02:49 AM ALKPHOS 153 (H) 06/23/2025 02:49 AM AST 24 06/23/2025 02:49 AM ALT 23 06/23/2025 02:49 AM ANIONGAP 11 06/25/2025 04:57 AM Lab Results Component Value Date/Time HGBA1C 6.3 (H) 06/14/2025 03:08 AM Lab Results Component Value Date/Time RDW 13.1 06/25/2025 04:57 AM No results found for: CRP , CRPHS Lab Results Component Value Date/Time MG 2.3 06/23/2025 02:49 AM Lab Results Component Value Date/Time CA 8.7 (L) 06/25/2025 04:57 AM PO4 4.0 06/23/2025 02:49 AM No results found for: GIJV046 , VITD25 , RMGP63SDZ8 , ACXH11SFU8 , LWUH36DCDD , HMCT3HEKWETE , DCKY2AHZGJZR , VITAMINDTO , DQJFDQU199 No results found for: HEMTSWPL01 No results found for: FOLATE , FOLATERBC No results found for: ZINC * Issac Rico MD - 06/25/2025 3:06 PM CDT Images from the original note were not included. Your life is our life's work [facility] Hospitalist/[facility] Medicine Progress Note LOS: 13 days Room/Bed: 4257/01 Patient name: Isaac Franklin Date of : 1960 HOSPITAL COURSE SUMMARY: 65-year-old male admitted to the ICU on 06/12/2025 with inferior STEMI, VF arrest, cardiogenic shock s/p left heart cath with AMBER to the RCA and placement of IABP further complicated by development of refractory VT requiring emergent bedside VA cannulation on 06/12 On 06/13, EKG showed worsening ST elevations and he was taken back to the Intramural Director and found to have acute in-stent thrombosis of the RCA with 100% occlusion now s/p IVUS guided balloon angioplasty and successful removal and reinsertion of IABP. There was concern for poor absorption of DAPT and he was started on Aggrastat gtt.for 18 hours Off pressors and ionotropes since 06/14 Liberated from VA ECMO on 06/17 IABP explanted and extubated 06/19 Heparin gtt discontinued 06/19 ketamine weaned off on 06/21. Hemodynamics are stable TTE on 06/16 with improved EF to 45% Continue diuresis. Renal function remains stable LFTs have normalized Patient was very agitated, and was maintain on ketamine and pracedex gtt. Ketamine has been discontinued since 06/21. Continue Geodon, continue Seroquel, start gabapentin, continue PRN clonazepam. Wean off precedex today. 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 Cardiology is also on board, losartan added by them. Respiratory status is stable. He has a strong cough.Encourage aerobika use when less agitated. Physical therapy recommending IPR at ICU timeline: 06/12: Admitted to the ICU, cardiac arrest, eCPR with pVA cannulation 06/13: Return to the Intramural Director for acute in-stent thrombosis of the RCA s/p angioplasty 06/16: ECMO flows decreased to 2-2.5L 06/17: Liberated from [facility] ECMO 06/19: Extubated, IABP explanted 06/22: transferred to stepdown Floor timeline 06/23: Mentation improved to AAO x 3 with prompting today, per bedside RN had episodes of agitationovernight; possibly hospital-acquired delirium/. Discussed with RN to wean off Precedex gtt gradually. Continuing quetiapine 50 mg every 8 hourly, ziprasidone 20 mg twice daily. Will obtain PULVERIZER MILL OPERATOR evaluation for swallowing safety and discontinue NG tube once consistent p.o. intake with stable mentation. Will consider switching IV heparin gtt. to p.o. apixaban once mentation stabilized. Intermittent low BP, relatively stabilizing at 100-110s/60s-70s. Remains on 3 L O2 via nasal cannula. Leukocytosis of 21.7, Hb relatively stable, creatinine stable. 06/24: Mentation this a.m. remains improved and is AO x 3. Discussed with RN; plan to wean off Precedex gtt. by the afternoon. Underwent MBS and cleared by PULVERIZER MILL OPERATOR for trial of general feeding; NG tube removed and will be monitored for consistent p.o. intake. Will switch IV heparin gtt. to p.o. apixaban; Dopplers obtained due to leukocytosis shows acute left DVT; heparin switched to VTE protocol and apixaban to be started at 10 mg twice daily for 7 days followed by 5 mg twice daily for at least 3 months as likely in the setting of prolonged immobility. Leukocytosis markedly uptrending; 15->21->29.2 in last 3 days. Afebrile however and no new symptoms suggestive of infection; no dysuria, diarrhea, does have difficulty clearing secretions but not worse over the last few days. Obtaining CT chest/abdomen/pelvis and depending on chest appearancewill consider repeating sputum culture, also obtaining repeat blood culture, urinalysis. Also obtaining Dopplers as noted above and peripheral blood smear. 06/25: Blood cultures in process, CT C/A/P pending, blood smear pending. WBC improved to 16.8; possibly related to acute left DVT which was being undertreated with heparin on A-fib protocol. Mentation significantly improving, weaned off from Precedex drip; will discontinue order. EKG today with [id number] ms; will discontinue ziprasidone and reduce quetiapine dosage to 50 mg twice daily. Tolerating diet and p.o. medications well. Consultants: IP CONSULT TO CARDIAC REHAB IP CONSULT TO SOCIAL WORK IP CONSULT TO CARDIAC REHAB IP CONSULT TO NUTRITION SERVICES IP CONSULT TO ETHICS RESOURCE IP CONSULT TO IV TEAM IP CONSULT TO ELECTROPHYSIOLOGY IP CONSULT TO COMMUNITY HEALTH WORKER IP CONSULT TO ETHICS RESOURCE IP CONSULT TO CASE MANAGEMENT IP CONSULT TO PASTORAL SERVICES IP CONSULT TO IV TEAM IP CONSULT TO PASTORAL SERVICES SUBJECTIVE: Pt seen and examined at bedside. He is AAO x 3 with prompting currently. He does not voice any new complaints. He is tolerating diet well. Significant other present at bedside; updated. OBJECTIVE: Temp (24hrs), Av.7 ??F (36.5 ??C), Min:97 ??F (36.1 ??C), Max:98.6 ??F (37 ??C) BP 106/85 Pulse 73 Temp 97.4 ??F (36.3 ??C) (Temporal) Resp 21 Ht 5' 8 (1.727 m) Wt 88.1kg (194 lb 3.6 oz) SpO2 (!) 79% BMI 29.53 kg/m?? Intake/Output Summary (Last 24 hours) at 06/25/2025 1507 Last data filed at 06/25/2025 1330 Gross per 24 hour Intake 822.24 ml Output 476 ml Net 346.24 ml Last documented weight: Weight: 88.1 kg (194 lb 3.6 oz) (06/25/25 0330) EXAM: General: alert, in no distress Neurologic: Grossly normal HEENT: atraumatic, Normocephalic, without obvious abnormality Lungs: clear to auscultation bilaterally, normal respiratory effort Heart: normal rate, regular rhythm, normal S1, S2, no murmurs, rubs, clicks or gallops Abdomen: Soft, non-tender. Bowel sounds normal. No masses, no organomegaly. Extremities: extremities normal, atraumatic, no cyanosis or edema, intact distal pulses, moves all extremities equally, no edema, redness or tenderness in the calves or thighs, normal strength, normal tone Skin: negative LABORATORY: Recent Labs 06/23/2524806/24/2533706/25/25456 WBC 21.7* 29.2* 16.8* HGB 9.9* 10.8* 9.4* HCT 30.1* 33.5* 28.9* PLT 462* 646* 527* Recent Labs 06/23/2524806/24/2533706/25/25456 NA 140 141 135* K 3.6 3.7 3.6 CL 104 103 100 CO2 23 24 24 CA 8.8 9.3 8.7* BUN 28* 30* 30* CREAT 0.76 0.70 0.69 GLUCOSE 195* 185* 151* Recent Labs 06/23/25248 TOTALPROTEIN 6.9 ALBUMIN 2.9* BILITOTAL 0.7 ALKPHOS 153* AST 24 ALT 23 No results for input(s): INR , PT in the last 72 hours. Invalid input(s): PTT No results for input(s): BASETROP , 2HRTROP , DELTA , 6HRTROP in the last 72 hours. Diagnostic testing reviewed by me: Medications were reviewed by me. Current Facility-Administered Medications: QUEtiapine (SEROquel) tablet 50 mg, 50 mg, Oral, BID, Issac Rico MD [START ON 06/26/2025] furosemide (LASIX) tablet 40 mg, 40 mg, Oral, daily, Anyi López FNP spironolactone (ALDACTONE) tablet 12.5 mg, 12.5 mg, Oral, daily, Anyi López FNP [] heparin in 0.45% NaCl 25,000 unit/250 mL infusion, 24 Units/kg/hr, IV, titrate, Issac Rico MD, Stopped at 06/24/25 1900 apixaban (ELIQUIS) tablet 10 mg, 10 mg, Oral, BID, Issac Rico MD, 10 mg at 06/25/25 0808 [START ON 07/01/2025] apixaban (ELIQUIS) tablet 5 mg, 5 mg, Oral, BID, Issac Rico MD iopamidoL (ISOVUE-300) 61% injection (drawn from multi-use bulk pack) 85 mL, 85 mL, IV, intra-proc ONE time, Issac Rico MD sodium chloride flush injection 10 mL, 10 mL, IV, every 5 minutes PRN, Issac Rico MD [DISCONTINUED] heparin injection 2,600 Units, 30 Units/kg, IV, ONE time only, Issac Rico MD gabapentin (NEURONTIN) 300 mg/6 mL (6 mL) oral solution 400 mg, 400 mg, Oral, every 8 hours, Ebony Lopez MD, 400 mg at 06/25/25 1215 dexmedeTOMIDine in dextrose 5% (PRECEDEX) 400 mcg/100 mL (4 mcg/mL) infusion, 0- 0.8 mcg/kg/hr, IV, titrate, Ebony Lopez MD, Last Rate: 5.27 mL/hr at 06/25/25 0223, 0.2 mcg/kg/hr at 06/25/25 0223 losartan (COZAAR) tablet 12.5 mg, 12.5 mg, Oral, daily, Prince Farr MD, 12.5 mg at 06/25/25 0807 metoprolol (LOPRESSOR) 5 mg/5 mL injection 2.5 mg, 2.5 mg, IV, ONE time only, Ebony Lopez MD clonazePAM (KlonoPIN) tablet 0.25 mg, 0.25 mg, Oral, every 6 hours PRN, Ebony Lopez MD, 0.25 mg at 06/24/25 0334 metoprolol tartrate (LOPRESSOR) tablet 12.5 mg, 12.5 mg, Oral, BID, Prince Farr MD, 12.5 mg at 06/25/25 0807 [DISCONTINUED] heparin in 0.45% NaCl 25,000 unit/250 mL infusion, 22 Units/kg/hr, IV, titrate, Issac Rico MD, Stopped at 06/24/25 1712 sennosides-docusate sodium (SENNA-S) 8.6-50 mg per tablet 1 Tablet, 1 Tablet, Oral, BID, Ebony Lopez MD, 1 Tablet at 06/25/25 0807 [DISCONTINUED] QUEtiapine (SEROquel) tablet 50 mg, 50 mg, Oral, every 8 hours, Ebony Lopez MD, 50 mg at 06/25/25 0541 [DISCONTINUED] ziprasidone (GEODON) capsule 20 mg, 20 mg, Oral, BID WITH meals, Ebony Lopez MD, 20 mg at 06/25/25 0807 [DISCONTINUED] furosemide (LASIX) injection 40 mg, 40 mg, IV, BID, 7 hours apart, Karlie Hamilton MD, 40 mg at 06/25/25 0809 albuterol (PROVENTIL,VENTOLIN) 2.5 mg /3 mL (0.083 %) inhalation solution 2.5 mg, 2.5 mg, Inhalation, resp, every 4 hours PRN, Karlie Hamilton MD sodium chloride flush injection 5 mL, 5 mL, IV, BID, Karlie Hamilton MD, 5 mL at 06/25/25 0810 dextrose 5 % - sodium chloride 0.9 % infusion, , IV, see admin instructions, Karlie Hamilton MD insulin lispro (HumaLOG,ADMELOG) injection 0-18 Units, 0-18 Units, subCUT, every 4 hours, Karlie Hamilton MD, 6 Units at 06/24/25 1649 dextrose 5 % in water 250 mL flush bag 25 mL, 25 mL, IV, see admin instructions, Prince Farr MD atropine injection 0.5 mg, 0.5 mg, IV, every 5 minutes PRN, Prince Farr MD nitroglycerin (NITROSTAT) tablet 0.4 mg, 0.4 mg, Sublingual, every 5 minutes PRN, Prince Farr MD polyethylene glycol (MIRALAX) packet 17 Gram, 17 Gram, Oral, BID, Karlie Hamilton MD, 17 Gram at 06/24/25 0901 ondansetron (ZOFRAN) 4 mg/2 mL injection 4 mg, 4 mg, IV, every 6 hours PRN, Zenaida Michel MD naloxone (NARCAN) 0.4 mg/mL injection 0.1-0.4 mg, 0.1-0.4 mg, IV, see admin instructions, Prince Farr MD aspirin (SNOW CHEWABLE) chewable tablet 81 mg, 81 mg, Oral, daily, Prince Farr MD, 81 mg at 06/25/25 0807 ticagrelor (BRILINTA) tablet 90 mg, 90 mg, Oral, BID, Prince Farr MD, 90 mg at 06/25/25 0808 rosuvastatin (CRESTOR) tablet 20 mg, 20 mg, Oral, daily BEDTIME, Prince Farr MD, 20 mg at 06/24/25 2126 naloxone (NARCAN) 0.4 mg/mL injection 0.1-0.4 mg, 0.1-0.4 mg, IV, see admin instructions, Love Gonzalez NP SODIUM BICARBONATE 1 MEQ/ML (8.4 %) INTRAVENOUS SOLUTION (CABINET OVERRIDE), , , , sodium chloride 0.9 % bolus solution 250 mL, 250 mL, IV, ONE time only, Charles Magana MD HEPARIN (PORCINE) 1,000 UNIT/ML INJECTION SOLUTION (CABINET OVERRIDE), , , , sodium chloride flush injection 10 mL, 10 mL, IV, BID, Zenaida Michel MD, 10 mL at 06/25/25 0809 Primary discharge diagnosis: ST elevation myocardial infarction involving right coronary artery Other active medical issues also addressed during this admission: Active Hospital Problems Diagnosis Ischemic dilated cardiomyopathy (CMS/HCC) Atrial fibrillation (CMS/HCC) S/P coronary artery stent placement Ventricular tachycardia (CMS/HCC) AV block Acute diastolic heart failure Diabetes mellitus Laboratory test Patient receiving extracorporeal membrane oxygenation (ECMO) Cardiogenic shock (CMS/HCC) Complete heart block (CMS/HCC) ST elevation myocardial infarction involving right coronary artery Cardiac arrest with ventricular fibrillation (CMS/HCC) CHB (complete heart block) ST elevation myocardial infarction (STEMI) Acute pulmonary edema (CMS/HCC) Acute hypoxemic respiratory failure (CMS/HCC) Lactic acidosis Resolved Hospital Problems No resolved problems to display. ASSESSMENT AND PLAN: STEMI involving RCA s/p coronary artery stent placement P/W two days of worsening chest pain, found to have inferior STEMI on EKG Cardiac catheterization revealed 100% thrombotic occlusion of the proximal right coronary artery s/p AMBER he sustained a ventricular fibrillation arrest at the outside hospital, requiring defibrillation and CPR, and was transferred for emergent intervention. Subsequently developed acute in-stent thrombosis with 100% occlusion, s/p IVUS- guided balloon angioplasty Briefly on IV argatroban gtt. due to concern for poor antiplatelet absorption Echo with initial EF 25%, improved on repeat echo 05/2020 2 to 45% Currently chest pain-free - Continue aspirin 81 mg and ticagrelor 90 mg twice daily - Continue metoprolol tartrate 12.5 mg twice daily - Continue rosuvastatin 20 mg nightly - Continue as needed nitroglycerin - Cardiology on board; appreciate recommendations - recommends triple therapy for 1 month from PCI I.e. till 07/15 and thereafter Brilinta plus Eliquis Cardiac Arrest s/p ROSC Ventricular Fibrillation Pt experienced multiple episodes of ventricular fibrillation following cardiac arrest requiring prolonged resuscitation, multiple rounds of defibrillation, and antiarrhythmic therapy including amiodarone and lidocaine. Temporary transvenous pacemaker were utilized for refractory arrhythmia and complete heart block Weaned off lidocaine and later amiodarone was discontinued following electrophysiology consultationwho deemed it to be ischemically mediated Vtach now resolved since revascularization - Will need LifeVest at discharge - Cardiology on board; appreciate recommendations Paroxysmal atrial fibrillation Recent EKG shows A-fib rhythm, currently HR controlled - Continue metoprolol tartrate 12.5 mg twice daily - Will switch IV heparin gtt. to p.o. apixaban this p.m. - Optimize electrolytes - keep K > 4 and Mg > 2 Cardiogenic Shock; resolved Developed cardiogenic shock, requiring high-dose vasopressors and mechanical support with IABP and VA ECMO. Liberated from VA ECMO on 06/17, IABP explanted 06/19 Remains off ionotropes and pressors. Hemodynamics relatively stabilizing - Continue telemetry monitoring Complete Heart Block and Bradyarrhythmias Developed complete heart block during his initial presentation and intervention, managed with a temporary transvenous pacemaker. Subsequently had intermittent 2:1 AV block and junctional escape rhythms, with episodes of bradycardia and artifact on telemetry. After stabilization and discontinuation of amiodarone, no further sustained arrhythmias were noted - Cardiology on board; appreciate recommendations Acute decompensation of heart failure with now midrange ejection fraction Initial echo 06/14 with EF 20-25% in the setting of acute STEMI Repeat echo 06/16 with EF improvement to 45% Volume status improving with diuresis Most recent CXR 06/21 with persistent patchy airspace disease pulmonary edema - Monitor volume status clinically - Continue diuresis; IV Lasix switched to p.o. Lasix 40 mg daily - Monitor renal function and electrolytes while on diuresis - GDMT limited in the setting of borderline BP; for now continue losartan 12.5 mg daily - Strict I's and O's, daily weights, Na < 2 g, Fluids < 1.5 L restricted diet - Cardiology on board; appreciate recommendations Acute Hypoxemic Respiratory Failure Secondary to pulmonary edema Initially requiring intubation and mechanical ventilation, extubated 06/19 Supplemental O2 requirements improving with diuresis Remains at risk for reintubation due to poor secretion management and agitation - Diuresis as above - Will CT chest below - Frequent oral/NT suctioning for secretion clearance - Wean down supplemental O2 as tolerated Acute metabolic encephalopathy; improving Likely multifactorial in the setting of cardiac arrest, critical illness, recent sedating medications due to agitation In ICU required sedation with precedex, ketamine, ketamine discontinued, Precedex continued and started on quetiapine, ziprasidone and gabapentin Currently mentation AAO x 3 with prompting however per RN, increased episodes of agitation overnight; likely sundowning/hospital-acquired delirium EKG 06/25 with QTc 553 ms - Discontinue Precedex gtt. - Decrease quetiapine 50 mg to 2 times daily - Discontinue ziprasidone - Continue gabapentin 400 mg 3 times daily - Continue as needed clonazepam - Delirium precautions - Given improvement in mentation during daytime, will defer head CT Dysphagia; improving Hx ileus Likely in the setting of encephalopathy and critical illnesses Also had ileus in the ICU, resolved with Relistor PULVERIZER MILL OPERATOR initially kept patient n.p.o., after MBS 06/24 has cleared for diet, NG tube removed - Appreciate PULVERIZER MILL OPERATOR - Tolerating current diet well; will monitor - Continue senna and MiraLAX Diabetes Mellitus HbA1c 6.3%. - Continue sliding scale correctional insulin; will switch to ACHS once able to take p.o. - Monitor POC BG and adjust insulin as appropriate Streptococcus pneumoniae and Haemophilus influenzae PNA Leukocytosis; worsening PNA positive PCR for Streptococcus pneumoniae and Haemophilus influenzae. Treated empirically with vancomycin and cefepime for 72 hours, then narrowed to ceftriaxone to complete 7-day course Initially WBC improving, however now trending up 15->21->29.2 Doppler 06/24 showed acute left DVT however unclear if sole trencher driver of leukocytosis -no new infectious symptoms currently although does have difficulty clearing secretions - Monitor fever curve, leukocyte count - Obtain CT chest/abdomen/pelvis, - Repeat blood cultures in process; will follow - Repeat UA not yet collected - Depending on CT chest appearance will obtain expectorated sputum sample - Obtain peripheral blood smear; pending - Address VTE as below; if leukocytosis does not improve then will consider infectious disease consultation Acute left DVT Seen on workup for leukocytosis - Switch IV heparin gtt. to VTE protocol - Will transition from IV heparin to p.o. apixaban 10 mg twice daily from tonight for 7 days and thereafter 5 mg twice daily Normocytic anemia Hb 9.9; relatively stable - Will monitor - Outpatient workup with PCP Nutrition Status: Provider Assessment/Plan: Symptoms/Signs/Physical Exam: Poor Appetite and Weight Loss Etiology: Acute illness and Chronic illness Nutrition Treatment Plan: - Current Diet and/or Nutritional Supplementation ordered: DIET GENERAL Effective Now - Daily weights Impact of Malnutrition on patient condition and outcomes: Increased risk of infection and Delayed recovery DVT prophylaxis: DVT Pharmacologic Prophylaxis: heparin in 0.45% NaCl 25,000 unit/250 mL infusion [[id number]] Code status: Full Code Outpatient follow up: PCP, Cardiology Anticipated Disposition Location: Inpatient rehab Timeframe: 06/27/2025 Criteria: Weaned down from supplemental O2/stable O2 requirements, stable leukocytosis, stable mentation and oral intake MDM complexity: [] Mild [x] Moderate [] High Issac Rico MD 06/25/2025, 3:07 PM * Levi Fernandez, RT - 06/24/2025 10:07 PM CDT Pt was brought down for routine ordered CT Chest, Abd, Pelvis with contrast for sepsis. Pt was noted of having administered barium contrast PO through X-ray earlier today. CT convenience store manager showed residual GI contrast in the bowel, which would create a dense artifact on the CT images. Pt was advised to hold off on CT scan until they have been properly bowel prepped and the GI is clear of Barium contrast.Dr. Wharton called down to the ER CT department and was explained the situation.He approved the delayof the CT scan until the Pt was properly bowel prepped. * Issac Rico MD - 06/24/2025 2:55 PM CDT Images from the original note were not included. Your life is our life's work [facility] Hospitalist/[facility] Progress Note LOS: 12 days Room/Bed: 4257/01 Patient name: Isaac Franklin Date of : 1960 HOSPITAL COURSE SUMMARY: 65-year-old male admitted to the ICU on 06/12/2025 with inferior STEMI, VF arrest, cardiogenic shock s/p left heart cath with AMBER to the RCA and placement of IABP further complicated by development of refractory VT requiring emergent bedside VA cannulation on 06/12 On 06/13, EKG showed worsening ST elevations and he was taken back to the Intramural Director and found to have acute in-stent thrombosis of the RCA with 100% occlusion now s/p IVUS guided balloon angioplasty and successful removal and reinsertion of IABP. There was concern for poor absorption of DAPT and he was started on Aggrastat gtt.for 18 hours Off pressors and ionotropes since 06/14 Liberated from VA ECMO on 06/17 IABP explanted and extubated 06/19 Heparin gtt discontinued 06/19 ketamine weaned off on 06/21. Hemodynamics are stable TTE on 06/16 with improved EF to 45% Continue diuresis. Renal function remains stable LFTs have normalized Patient was very agitated, and was maintain on ketamine and pracedex gtt. Ketamine has been discontinued since 06/21. Continue Geodon, continue Seroquel, start gabapentin, continue PRN clonazepam. Wean off precedex today. 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 Cardiology is also on board, losartan added by them. Respiratory status is stable. He has a strong cough.Encourage aerobika use when less agitated. Physical therapy recommending IPR at ICU timeline: 06/12: Admitted to the ICU, cardiac arrest, eCPR with pVA cannulation 06/13: Return to the Intramural Director for acute in-stent thrombosis of the RCA s/p angioplasty 06/16: ECMO flows decreased to 2-2.5L 06/17: Liberated from VA ECMO 06/19: Extubated, IABP explanted 06/22: transferred to stepdown Floor timeline 06/23: Mentation improved to AAO x 3 with prompting today, per bedside RN had episodes of agitationovernight; possibly hospital-acquired delirium/. Discussed with RN to wean off Precedex gtt gradually. Continuing quetiapine 50 mg every 8 hourly, ziprasidone 20 mg twice daily. Will obtain PULVERIZER MILL OPERATOR evaluation for swallowing safety and discontinue NG tube once consistent p.o. intake with stable mentation. Will consider switching IV heparin gtt. to p.o. apixaban once mentation stabilized. Intermittent low BP, relatively stabilizing at 100-110s/60s-70s. Remains on 3 L O2 via nasal cannula. Leukocytosis of 21.7, Hb relatively stable, creatinine stable. 06/24: Mentation this a.m. remains improved and is AO x 3. Discussed with RN; plan to wean off Precedex gtt. by the afternoon. Underwent MBS and cleared by PULVERIZER MILL OPERATOR for trial of general feeding; NG tube removed and will be monitored for consistent p.o. intake. Will switch IV heparin gtt. to p.o. apixaban; Dopplers obtained due to leukocytosis shows acute left DVT; heparin switched to VTE protocol and apixaban to be started at 10 mg twice daily for 7 days followed by 5 mg twice daily for at least 3 months as likely in the setting of prolonged immobility. Leukocytosis markedly uptrending; 15->21->29.2 in last 3 days. Afebrile however and no new symptoms suggestive of infection; no dysuria, diarrhea, does have difficulty clearing secretions but not worse over the last few days. Obtaining CT chest/abdomen/pelvis and depending on chest appearancewill consider repeating sputum culture, also obtaining repeat blood culture, urinalysis. Also obtaining Dopplers as noted above and peripheral blood smear. Consultants: IP CONSULT TO CARDIAC REHAB IP CONSULT TO SOCIAL WORK IP CONSULT TO CARDIAC REHAB IP CONSULT TO NUTRITION SERVICES IP CONSULT TO ETHICS RESOURCE IP CONSULT TO IV TEAM IP CONSULT TO ELECTROPHYSIOLOGY IP CONSULT TO COMMUNITY HEALTH WORKER IP CONSULT TO ETHICS RESOURCE IP CONSULT TO CASE MANAGEMENT IP CONSULT TO PASTORAL SERVICES IP CONSULT TO IV TEAM SUBJECTIVE: Pt seen and examined at bedside. He is AAO x 3 with prompting currently. He does not voice any new complaints. He is eager to start a diet. OBJECTIVE: Temp (24hrs), Av.9 ??F (36.6 ??C), Min:97.1 ??F (36.2 ??C), Max:98.5 ??F (36.9 ??C) BP 128/80 Pulse 79 Temp 97.8 ??F (36.6 ??C) (Temporal) Resp 29 Ht 5' 8 (1.727 m) Wt 86 kg (189 lb 9.5 oz) SpO2 92% BMI 28.83 kg/m?? Intake/Output Summary (Last 24 hours) at 06/24/2025 1455 Last data filed at 06/24/2025 0700 Gross per 24 hour Intake 1687.32 ml Output 1700 ml Net -12.68 ml Last documented weight: Weight: 86 kg (189 lb 9.5 oz) (06/22/25 1900) EXAM: General: alert, in no distress Neurologic: Grossly normal HEENT: atraumatic, Normocephalic, without obvious abnormality Lungs: clear to auscultation bilaterally, normal respiratory effort Heart: normal rate, regular rhythm, normal S1, S2, no murmurs, rubs, clicks or gallops Abdomen: Soft, non-tender. Bowel sounds normal. No masses, no organomegaly. Extremities: extremities normal, atraumatic, no cyanosis or edema, intact distal pulses, moves all extremities equally, no edema, redness or tenderness in the calves or thighs, normal strength, normal tone Skin: negative LABORATORY: Recent Labs 06/22/25 0430 06/23/25 0249 06/24/25 0338 WBC 15.0* 21.7* 29.2* HGB 8.7* 9.9* 10.8* HCT 26.1* 30.1* 33.5* PLT 413 462* 646* Recent Labs 06/22/25 0430 06/23/25 0249 06/24/25 0338 NA 142 140 141 K 3.4* 3.6 3.7 CL 104 104 103 CO2 27 23 24 CA 8.6* 8.8 9.3 BUN 23 28* 30* CREAT 0.73 0.76 0.70 GLUCOSE 175* 195* 185* Recent Labs 06/22/250 06/23/25 0249 TOTALPROTEIN 6.5 6.9 ALBUMIN 3.0* 2.9* BILITOTAL 0.8 0.7 ALKPHOS 145* 153* AST 22 24 ALT 22 23 No results for input(s): INR , PT in the last 72 hours. Invalid input(s): PTT No results for input(s): BASETROP , 2HRTROP , DELTA , 6HRTROP in the last 72 hours. Diagnostic testing reviewed by me: Medications were reviewed by me. Current Facility-Administered Medications: [COMPLETED] heparin injection 1,400 Units, 1,400 Units, IV, ONE time only, Issac Rico MD, 1,400Units at 06/24/25 0504 [COMPLETED] barium sulfate (VARIBAR PUDDING) oral paste 90 mL, 90 mL, Oral, intra-proc ONE time, Issac Rico MD, 90 mL at 06/24/25 1147 [COMPLETED] barium sulfate (VARIBAR THIN LIQUID) 40% w/v from 81% w/w oral powder 74 Gram, 74 Gram,Oral, intra-proc ONE time, Issac Rico MD, 74 Gram at 06/24/25 1147 [COMPLETED] heparin injection 2,600 Units, 30 Units/kg, IV, ONE time only, Issac Rico MD, 2,600Units at 06/23/25 2341 gabapentin (NEURONTIN) 300 mg/6 mL (6 mL) oral solution 400 mg, 400 mg, Oral, every 8 hours, Ebony Lopez MD, 400 mg at 06/24/25 1452 dexmedeTOMIDine in dextrose 5% (PRECEDEX) 400 mcg/100 mL (4 mcg/mL) infusion, 0- 0.8 mcg/kg/hr, IV, titrate, Ebony Lopez MD, Last Rate: 21.06 mL/hr at 06/24/25 0930, 0.8 mcg/kg/hr at 06/24/2530 losartan (COZAAR) tablet 12.5 mg, 12.5 mg, Oral, daily, Prince Farr MD, 12.5 mg at 06/24/25901 metoprolol (LOPRESSOR) 5 mg/5 mL injection 2.5 mg, 2.5 mg, IV, ONE time only, Ebony Lopez MD clonazePAM (KlonoPIN) tablet 0.25 mg, 0.25 mg, Oral, every 6 hours PRN, Ebony Lopez MD, 0.25 mg at 06/24/25 0334 metoprolol tartrate (LOPRESSOR) tablet 12.5 mg, 12.5 mg, Oral, BID, Prince Farr MD, 12.5 mg at 06/24/25 09 heparin in 0.45% NaCl 25,000 unit/250 mL infusion, 22 Units/kg/hr, IV, titrate, Issac Rico MD, Last Rate: 20.7 mL/hr at 06/24/25 0837, 22 Units/kg/hr at 06/24/25 0837 QUEtiapine (SEROquel) tablet 50 mg, 50 mg, Oral, every 8 hours, Ebony Lopez MD, 50 mg at 06/24/25 1232 sennosides-docusate sodium (SENNA-S) 8.6-50 mg per tablet 1 Tablet, 1 Tablet, Oral, BID, Ebony Lopez MD, 1 Tablet at 06/24/25 0902 ziprasidone (GEODON) capsule 20 mg, 20 mg, Oral, BID WITH meals, Ebony Lopez MD, 20 mg at 06/24/25 0901 furosemide (LASIX) injection 40 mg, 40 mg, IV, BID, 7 hours apart, Karlie Hamilton MD, 40 mg at 06/24/25 1453 albuterol (PROVENTIL,VENTOLIN) 2.5 mg /3 mL (0.083 %) inhalation solution 2.5 mg, 2.5 mg, Inhalation, resp, every 4 hours PRN, Karlie Hamilton MD sodium chloride flush injection 5 mL, 5 mL, IV, BID, Karlie Hamilton MD, 5 mL at 06/24/25 09 dextrose 5 % - sodium chloride 0.9 % infusion, , IV, see admin instructions, Karlie Hamilton MD insulin lispro (HumaLOG,ADMELOG) injection 0-18 Units, 0-18 Units, subCUT, every 4 hours, Karlie Hamilton MD, 6 Units at 06/24/25 09 dextrose 5 % in water 250 mL flush bag 25 mL, 25 mL, IV, see admin instructions, Prince Farr MD atropine injection 0.5 mg, 0.5 mg, IV, every 5 minutes PRN, Prince Farr MD nitroglycerin (NITROSTAT) tablet 0.4 mg, 0.4 mg, Sublingual, every 5 minutes PRN, Prince Farr MD polyethylene glycol (MIRALAX) packet 17 Gram, 17 Gram, Oral, BID, Karlie Hamilton MD, 17 Gram at 06/24/25 09 ondansetron (ZOFRAN) 4 mg/2 mL injection 4 mg, 4 mg, IV, every 6 hours PRN, Zenaida Michel MD naloxone (NARCAN) 0.4 mg/mL injection 0.1-0.4 mg, 0.1-0.4 mg, IV, see admin instructions, Prince Farr MD aspirin (SNOW CHEWABLE) chewable tablet 81 mg, 81 mg, Oral, daily, Prince Farr MD, 81 mg at 06/24/25 09 ticagrelor (BRILINTA) tablet 90 mg, 90 mg, Oral, BID, Prince Farr MD, 90 mg at 06/24/25 09 rosuvastatin (CRESTOR) tablet 20 mg, 20 mg, Oral, daily BEDTIME, Prince Farr MD, 20 mg at 06/23/252145 naloxone (NARCAN) 0.4 mg/mL injection 0.1-0.4 mg, 0.1-0.4 mg, IV, see admin instructions, Lvoe Gonzalez, YVAN SODIUM BICARBONATE 1 MEQ/ML (8.4 %) INTRAVENOUS SOLUTION (CABINET OVERRIDE), , , , sodium chloride 0.9 % bolus solution 250 mL, 250 mL, IV, ONE time only, Charles Magana MD HEPARIN (PORCINE) 1,000 UNIT/ML INJECTION SOLUTION (CABINET OVERRIDE), , , , sodium chloride flush injection 10 mL, 10 mL, IV, BID, Zenaida Michel MD, 10 mL at 06/24/25 0900 Primary discharge diagnosis: ST elevation myocardial infarction involving right coronary artery Other active medical issues also addressed during this admission: Active Hospital Problems Diagnosis Ischemic dilated cardiomyopathy (CMS/HCC) Atrial fibrillation (CMS/HCC) S/P coronary artery stent placement Ventricular tachycardia (CMS/HCC) AV block Acute diastolic heart failure Diabetes mellitus Laboratory test Patient receiving extracorporeal membrane oxygenation (ECMO) Cardiogenic shock (CMS/HCC) Complete heart block (CMS/HCC) ST elevation myocardial infarction involving right coronary artery Cardiac arrest with ventricular fibrillation (CMS/HCC) CHB (complete heart block) ST elevation myocardial infarction (STEMI) Acute pulmonary edema (CMS/HCC) Acute hypoxemic respiratory failure (CMS/HCC) Lactic acidosis Resolved Hospital Problems No resolved problems to display. ASSESSMENT AND PLAN: STEMI involving RCA s/p coronary artery stent placement P/W two days of worsening chest pain, found to have inferior STEMI on EKG Cardiac catheterization revealed 100% thrombotic occlusion of the proximal right coronary artery s/p AMBER he sustained a ventricular fibrillation arrest at the outside hospital, requiring defibrillation and CPR, and was transferred for emergent intervention. Subsequently developed acute in-stent thrombosis with 100% occlusion, s/p IVUS- guided balloon angioplasty Briefly on IV argatroban gtt. due to concern for poor antiplatelet absorption Echo with initial EF 25%, improved on repeat echo 05/2020 2 to 45% Currently chest pain-free - Continue aspirin 81 mg and ticagrelor 90 mg twice daily - Continue metoprolol tartrate 12.5 mg twice daily - Continue rosuvastatin 20 mg nightly - Continue as needed nitroglycerin - Cardiology on board; appreciate recommendations - recommends triple therapy for 1 month from PCI I.e. till 07/15 and thereafter Brilinta plus Eliquis Cardiac Arrest s/p ROSC Ventricular Fibrillation Pt experienced multiple episodes of ventricular fibrillation following cardiac arrest requiring prolonged resuscitation, multiple rounds of defibrillation, and antiarrhythmic therapy including amiodarone and lidocaine. Temporary transvenous pacemaker were utilized for refractory arrhythmia and complete heart block Weaned off lidocaine and later amiodarone was discontinued following electrophysiology consultationwho deemed it to be ischemically mediated Vtach now resolved since revascularization - Will need LifeVest at discharge - Cardiology on board; appreciate recommendations Paroxysmal atrial fibrillation Recent EKG shows A-fib rhythm, currently HR controlled - Continue metoprolol tartrate 12.5 mg twice daily - Will switch IV heparin gtt. to p.o. apixaban this p.m. - Optimize electrolytes - keep K > 4 and Mg > 2 Cardiogenic Shock; resolved Developed cardiogenic shock, requiring high-dose vasopressors and mechanical support with IABP and VA ECMO. Liberated from VA ECMO on 06/17, IABP explanted 06/19 Remains off ionotropes and pressors. Hemodynamics relatively stabilizing - Continue telemetry monitoring Complete Heart Block and Bradyarrhythmias Developed complete heart block during his initial presentation and intervention, managed with a temporary transvenous pacemaker. Subsequently had intermittent 2:1 AV block and junctional escape rhythms, with episodes of bradycardia and artifact on telemetry. After stabilization and discontinuation of amiodarone, no further sustained arrhythmias were noted - Cardiology on board; appreciate recommendations Acute decompensation of heart failure with now midrange ejection fraction Initial echo 06/14 with EF 20-25% in the setting of acute STEMI Repeat echo 06/16 with EF improvement to 45% Volume status improving with diuresis Most recent CXR 06/21 with persistent patchy airspace disease pulmonary edema - Monitor volume status clinically - Continue IV Lasix 40 mg twice daily - Monitor renal function and electrolytes while on diuresis - GDMT limited in the setting of borderline BP; for now continue losartan 12.5 mg daily - Strict I's and O's, daily weights, Na < 2 g, Fluids < 1.5 L restricted diet - Cardiology on board; appreciate recommendations Acute Hypoxemic Respiratory Failure Secondary to pulmonary edema Initially requiring intubation and mechanical ventilation, extubated 06/19 Supplemental O2 requirements improving with diuresis Remains at risk for reintubation due to poor secretion management and agitation - Diuresis as above - Will CT chest below - Frequent oral/NT suctioning for secretion clearance - Wean down supplemental O2 as tolerated Acute metabolic encephalopathy; improving Likely multifactorial in the setting of cardiac arrest, critical illness, recent sedating medications due to agitation In ICU required sedation with precedex, ketamine, ketamine discontinued, Precedex continued and started on quetiapine, ziprasidone and gabapentin Currently mentation AAO x 3 with prompting however per RN, increased episodes of agitation overnight; likely sundowning/hospital-acquired delirium - Wean off Precedex gtt.; discussed with RN - Continue quetiapine 50 mg 3 times daily - Continue ziprasidone 20 mg twice daily - Continue gabapentin 400 mg 3 times daily - Continue as needed clonazepam - Delirium precautions - Given improvement in mentation during daytime, will defer head CT Dysphagia; improving Hx ileus Likely in the setting of encephalopathy and critical illnesses Also had ileus in the ICU, resolved with Relistor [employer] M[employer]PERATOR initially kept patient n.p.o., after MBS 06/24 has cleared for diet - Remove NG tube - Trial of oral diet per PULVER[employer] MILL OPERATOR - Continue senna and MiraLAX Diabetes Mellitus HbA1c 6.3%. - Continue sliding scale correctional insulin; will switch to ACHS once able to take p.o. - Monitor POC BG and adjust insulin as appropriate Streptococcus pneumoniae and Haemophilus influenzae PNA Leukocytosis; worsening PNA positive PCR for Streptococcus pneumoniae and Haemophilus influenzae. Treated empirically with vancomycin and cefepime for 72 hours, then narrowed to ceftriaxone to complete 7-day course Initially WBC improving, however now trending up 15->21->29.2 Doppler 06/24 showed acute left DVT however unclear if sole trencher driver of leukocytosis -no new infectious symptoms currently although does have difficulty clearing secretions - Monitor fever curve, leukocyte count - Obtain CT chest/abdomen/pelvis, urine culture, blood culture. Depending on CT chest appearance will obtain expectorated sputum sample - Obtain peripheral blood smear - Address VTE as below; if leukocytosis does not improve then will consider infectious disease consultation Acute left DVT Seen on workup for leukocytosis - Switch IV heparin gtt. to VTE protocol - Will transition from IV heparin to p.o. apixaban 10 mg twice daily from tonight for 7 days and thereafter 5 mg twice daily Normocytic anemia Hb 9.9; relatively stable - Will monitor - Outpatient workup with PCP Nutrition Status: Provider Assessment/Plan: Symptoms/Signs/Physical Exam: Poor Appetite and Weight Loss Etiology: Acute illness and Chronic illness Nutrition Treatment Plan: - Current Diet and/or Nutritional Supplementation ordered: DIET TUBE FEEDING Elemental 1.2,; No,; Orogastric/Nasogastric; Feeding Method: Continuous; Initial Volume in mL/hour: 20; Goal Volume in mL/hour: 60; Feeding Advancement: 10mL q6h DIET GENERAL Effective Now - Daily weights Impact of Malnutrition on patient condition and outcomes: Increased risk of infection and Delayed recovery DVT prophylaxis: DVT Pharmacologic Prophylaxis: heparin in 0.45% NaCl 25,000 unit/250 mL infusion [[id number]] Code status: Full Code Outpatient follow up: PCP, Cardiology Anticipated Disposition Location: Inpatient rehab Timeframe: 06/25/2025 Criteria: Weaned down from supplemental O2/stable O2 requirements, stable leukocytosis, stable mentation and oral intake MDM complexity: [] Mild [x] Moderate [] High Issac Rico MD 06/24/2025, 2:55 PM * Mikal Gomez - 06/24/2025 11:48 AM CDT IMAGING SERVICES- CONTRAST, MEDICATION and FLUSH PROTOCOL [facility] Enter the protocol in the patient's electronic health record using QSecurerase: .imagingcontrastprotocol Communication Orders: Initiate a peripheral IV, if not already in place, and discontinue IV prior to discharge Enter order if needed: Insert Peripheral IV Medication Orders: Lidocaine 4% (L.M.X.4)- applied topically ONE TIME prior to IV catheter insertion PRN (apply 15 minutes prior to procedure) Sodium chloride 0.9% (normal saline) flush- 10 mLs PRN for saline lock or medication administration Oxygen- For respiratory distress, initiate O2 to maintain saturation greater than 90% CAT SCAN CT IV CONTRAST PROTOCOLS FOR ADULTS Iopamidol Injection 61% (ISOVUE-300)- Double bolus with MD approval Routine exams dosed by weight: <150lbs- 75mL 151lbs to 220lbs- 100mL >220lbs- 125mL CT Angiography: 100mL Runoff and Triphasic Liver Protocols: 150mL Iopamidol Injection 76% (ISOVUE-370) Cardiac- 110mL TAVR- 160mL CT IV CONTRAST PROTOCOLS FOR PEDIATRICS Iopamidol Injection 61% (ISOVUE-300) - Routine exams: 1mL per pound Infant and Pediatric- Head / Face: 1mL per pound up to 50 lbs Pediatric- Routine exams: 1mL per pound up to 75 lbs 75-150 lbs: 75mL 150-220 lbs: 100mL >220 lbs: 125mL CT ORAL CONTRAST PROTOCOLS FOR ADULTS Iohexol 300mg/mL (OMNIPAQUE) for CT scan unless patient has a documented allergy to contrast * 15ml added to 16 oz of clear liquid of patient's choice. Preferred route is oral. May use nasoenteric tube if needed. Administer 16 oz the diluted Omnipaque 300, orally 1st dose 30-60 minutes prior to scan and 2nd dose just before scan. * Barium Sulfate 2% w/v (READI-CAT2) for CT scan when patient has documented contrast allergy Administer 2 doses of 450mL of barium sulfate. First dose 30-60 min prior to exam and 2nd dose justbefore exam. Preferred route is oral. May use nasoenteric tube if needed. Barium Sulfate 0.1% w/v, 0.1% w/w (VOLUMEN) for Enterography and GI Bleed protocols Administer VoLumen- 3 doses of 450 mL. 1st dose must be completed within 20 minutes. 2nd dose must be completed in the next 30 minutes. 3rd dose is given at scan time. Preferred route is oral. May use nasoenteric tube if needed. CT ORAL CONTRAST PROTOCOLS FOR PEDIATRICS Preferred route is oral, may use nasoenteric tube if needed. [place] to 3 months- Barium Sulfate 2%w/v (READI-CAT2) thinned with water to a consistency for typical bottle feeding 3 Months to 3 years- Iohexol 300mg/mL (OMNIPAQUE) 5mL diluted with 16oz clear fluid. 1 dose: 30min prior to exam 4 years to 10 years- Iohexol 300mg/mL (OMNIPAQUE) 8mL diluted with 16oz clear fluid. 1 dose: 30min prior to exam 10 years and up- Iohexol 300mg/mL (OMNIPAQUE) 15mL diluted with 16oz clear fluid. 2 doses: first dose 30min prior to exam and 2nd dose just before scan if tolerated CT CYSTOGRAM Iopamidol 61% Injection ([id number]): 25mL Dilute into 500mL bag of sterile NS administer up to 300mL retrograde via urinary catheter DIAGNOSTIC RADIOLOGY Enter the protocol in the patient's electronic health record using smartphrase: ADULTS PROCEDURE DOSAGE ARTHROGRAMS Plain ISOVUE 300 12mL MRI-(Ankle,Elbow,Hip,Wrist,Knee,Shoulder) ISOVUE 300 5mL / Prohance .2ml CT-(Ankle,Elbow,Hip,Wrist,Knee,Shoulder) ISOVUE 300 20mL BARIUM ENEMAS BARIUM ENEMA AIR CONTRAST LIQUID POLIBAR 1900ml BARIUM ENEMA/ GASTROGRAFIN B.E. LIQUID POLIBAR 800mL + 3200mL of water or GASTROGRAFIN 960mL + 3040mL of water. CYSTOGRAM CYSTOGRAFIN 1500mL ESOPHAGUS BARIUM SWALLOW E-Z-HD Barium Sulfate for Suspension 340g. and/or E-Z-PAQUE Barium Sulfate Oral Suspension 355mL OMNIPAQUE 350 50ml or GASTROGRAFIN 120mL Barium tablet 700mg (if indicated) MODIFIED BARIUM SWALLOW Barium tablet 700mg, Varibar paste 90g/Varibar thin 74g/ Varibar honey 125mL/ Varibar Affton 120mL HYSTEROSALPINGOGRAM ISOVUE 300 30ml IVP'S ISOVUE 300 100ml MYELOGRAMS: CERVICAL ISOVUE-M 300 10mL THORACIC ISOVUE-M 300 10mL LUMBAR ISOVUE-M 200 12mL SMALL BOWEL SERIES E-Z-PAQUE Barium Sulfate for Oral Suspension 710mL or GASTROGRAFIN 240mL LOOPOGRAM ISOVUE 300 60mL NEPHROSTOGRAM ISOVUE 300 60mL RETROGRADE URETHROGRAM Cystografin 300mL UPPER GI Upper GI E-Z-HD Barium Sulfate for Suspension: 340g. and/or E-Z-PAQUE Barium Sulfate for Oral Suspension: 355mL Upper GI Air Contrast Same as above EZ Gas crystals (if indicated) URETHROCYSTOGRAM VOIDING Cystografin 1500mL PORT CONTRAST INJECTION WITH Isovue 300 20mL [facility] PED[facility] PROCEDURE CONTRAST DOSAGE Upper GI Under Age 5 Liquid E-Z-Paque (Thin Barium) 240mL Omnipaque 180 (hypaque) or 350 50mL Upper GI Above Age 5 EZ HD (Thick Barium) 340g Liquid E-Z Paque (Thin Barium) 240mL EZ Gas Packet 4g Omnipaque 350 (hypaque) 50mL Small Bowel Series Under Age 5 Liquid E-Z Paque (Thin Barium) 240mL Omnipaque 180 (hypaque) 50mL Small Bowel Series Above Age 5 Liquid E-Z Paque (Thin Barium) 480mL Omnipaque 350 50mL Barium Swallow Under Age 5 Liquid E-Z Paque (Thin Barium) 240mL Omnipaque 180 (hypaque) 50mL Barium Swallow Above Age 5 EZ HD (Thick Barium) 340g Liquid E-Z Paque (Thin Barium) 240mL Omnipaque 350 50mL Modified Barium Swallow >1 Varibar [id number]: 1 to 2 Varibar Thin74 Paste 90g (Video Swallow with Speech) <2 Varibar [id number], [id number], Honey 125mL, Paste 90g IVP Isovue 300 100mL/1mL per lb. Urethrocystogram Voiding Cystografin 500mL Barium Enema Liquid Polibar 400mL+1600 water 2000mL Barium Enema with Hypaque Gastrografin 1 bottle mixed 5 bottle water 720mL Over 5 Gastrografin 480mL+1520 water 2000mL Barium Enema Air Contrast Liquid Polibar 1900mL INTERVENTIONAL RADIOLOGY PROCEDURE DOSAGE IR ARTERIOGRAM VISIPAQUE 320 OR OMNIPAQUE 300 MAX DOSAGE 400mL IR BILIARY ISOVUE 200 MAX DOSAGE 300 mL IR FISTULOGRAM ISOVUE 200 OR VISIPAQUE 320 MAX DOSAGE 400mL IR IVC FILTER ISOVUE 200 OR VISIPAQUE MAX DOSAGE 400 mL IR TUBE PLACEMENT ISOVUE 200 MAX DOSAGE 300 mL IR VENOUS ABDOMINAL VISIPAQUE 320 OR ISOVUE 200 MAX DOSAGE 400 mL IR VENOUS ACCESS ISOVUE 200 MAX DOSAGE 300 mL IR VENOUS UPPER AND LOWER EXTREMITY VISIPAQUE 320 OR ISOVUE 200 MAX DOSAGE 400 mL IR SPINAL INTERVENTION ISOVUE 200 MAX DOSAGE 100mL (FOR BALLOON ONLY) MRI MRI IV CONTRAST PROTOCOLS FOR ADULTS Gadobenate Dimeglumine (MULTIHANCE) (0.1mmol/0.2mL)- Administer 0.1mmol/kg = 0.2mL/kg up to 30mL MAX, intravenously, one time only for routine MRI Gadoxetate (EOVIST) (2.5 mmol/10mL)- Administer 0.025mmol/kg = 0.1mL/kg up to 15mL MAX, intravenously, one time only when requested by radiologist for Liver protocol Gadoteridol (PROHANCE) (0.1mmol/0.2mL)- Administer 0.1mmol/kg = 0.2mL/kg up to 30mL MAX, intravenously, one time only when approved by radiologist for routine MRI MRI IV CONTRAST PROTOCOLS FOR PEDIATRICS Radiologist to determine the need for contrast Term neonates and older: Gadobenate Dimeglumine (MULTIHANCE) (0.1mmol/0.2mL) -Administer 0.1mmol/kg = 0.2mL/kg up 20mL MAX, intravenously, one time only MRI ORAL CONTRAST PROTOCOLS Barium Sulfate 0.1% w/v, 0.1% w/w (VOLUMEN) for Enterography Administer VoLumen- 3 doses of 450 mL. 1st dose must be completed within 20 minutes. 2nd dose must be completed in the next 30 minutes. 3rd dose is given at scan time. Preferred route is oral. May use nasoenteric tube if needed. Use half dose if patient is <100lb NUCLEAR MEDICINE Procedure: Abscess Localization Medications for Procedure: In-111 Leukocytes *Syringes prepped with 2000 units of Heparin added to 10ml of 6% Hetastarch- Approximately 45ml's patient's blood added to the above for labeling Adult Dose: 300-550uCi Pediatric Dose Calculation: .0075mCi/kg Pediatric Minimum: 50uCi Pediatric Maximum: 500uCi Reference: #3 Procedure: Abscess Localization Medications for Procedure: Tc-99m HMPAO Leukocytes *Syringes prepped with 2000 units of Heparin added to 10ml of 6% Hetastarch- Approximately 45ml's patient's blood added to the above for labeling Adult Dose: 15-30mCi Pediatric Dose Calculation: .15mCi/kg Pediatric Minimum: 500uCi Pediatric Maximum: 10.5mCi Reference: #3 Procedure: Abscess Localization Medications for Procedure: Ga-67 Citrate Adult Dose: Ga-67 Citrate Pediatric Dose Calculation: .05mCi/kg Pediatric Minimum: .05mCi/kg Pediatric Maximum: .05mCi/kg Reference: .05mCi/kg Procedure: Arthrogram Medications for Procedure: Tc-99m Sulfur Colloid Adult Dose: 1.0mCi Procedure: Blood Pool (Muga/Hepatic Hemangioma/GI Bleed) Medications for Procedure: Tc-99m Ultratag *Syringe prepped with Heparin Lock Flush(concentration of 100 units/ml) volume of ~.1ml used so dose is ~10 units of Heparin for each procedure Adult Dose: 30mCi Pediatric Dose Calculation: .25mCi/kg Pediatric Minimum: 2.5mCi Pediatric Maximum: 17.5mCi Reference: #1 Comments: Used .25mCi/kg for all exams in this category per Nuclear Medicine physicians Procedure: Bone Scan Medications for Procedure: Tc-99m HDP Adult Dose: 20mCi Pediatric Dose Calculation: .25mCi/kg Pediatric Minimum: 1.0mCi Pediatric Maximum: 17.5mCi Reference: #2 Procedure: Bone Scan Medications for Procedure: Tc-99m MDP Adult Dose: 20mCi Pediatric Dose Calculation: .25mCi/kg Pediatric Minimum: 1.0mCi Pediatric Maximum: 17.5mCi Reference: #2 Procedure: Bone Marrow Imaging Medications for Procedure: Tc-99m Sulfur Colloid Adult Dose: 10mCi Pediatric Dose Calculation: .14mCi/kg Pediatric Minimum: 1.0mCi Pediatric Maximum: 10.0mCi Reference: #1 Procedure: Bowel Imaging (Meckel's) Medications for Procedure: Tc-99m Pertechnetate Adult Dose: 10mCi Pediatric Dose Calculation: .05mCi/kg Pediatric Minimum: 250uCi Pediatric Maximum: 3.5mCi Reference: #2 Procedure: Brain (Cerebral flow) Medications for Procedure: Tc-99m Pertechnetate Adult Dose: 20mCi Pediatric Dose Calculation: .28mCi/kg Pediatric Minimum: 4mCi Pediatric Maximum: 20.0mCi Reference: #1 Procedure: Brain (SPECT) Medications for Procedure: Tc-99m HMPAO(Ceretec) Adult Dose: 30mCi Pediatric Dose Calculation: .35mCi/kg Pediatric Minimum: 3mCi Pediatric Maximum: 25.0mCi Reference: #1 Procedure: Brain (DaTscan) Medications for Procedure: Tc-99m Ioflupane (DaTscan) *120 mg Potassium Iodide in 8 Oz. given PO one hour prior to dosing for procedure Adult Dose: 5mCi Procedure: Cisternogram Medications for Procedure: In-111 DTPA Adult Dose: 2mCi Pediatric Dose Calculation: .007mCi/kg Pediatric Minimum: 100uCi Pediatric Maximum: 500uCi Reference: #1 Procedure: Cystogram Medications for Procedure: Tc-99m Sulfur Colloid or MAA Adult Dose: 1.0mCi Procedure: Gastric Empty (Solid) Medications for Procedure: Tc-99m Sulfur Colloid (eggs/oatmeal/formula) Adult Dose: 1.0mCi Pediatric Dose Calculation: NMIS weight based calculation Pediatric Minimum: 250uCi Pediatric Maximum: 1.0mCi Reference: #5 Procedure: Gastro-esophageal Reflux Medications for Procedure: Tc-99m Sulfur Colloid Adult Dose: 1.0mCi Pediatric Dose Calculation: NMIS weight based calculation Pediatric Minimum: 250uCi Pediatric Maximum: 1.0mCi Reference: #5 Procedure: Hepatobiliary With or without EF Medications for Procedure: Tc-99m Mebrofenin *If using CCK (Sincalide) for EF- dose is .02mcg/kg Sincalide prepared using 5 ml Sterile water added to 5 mcg vial of Sincalide Adult Dose: 5.0mCi Pediatric Dose Calculation: .05mCi/kg Pediatric Minimum: 500uCi Pediatric Maximum: 3.5mCi Reference: #2 Procedure: Hepatobiliary With or without EF Medications for Procedure: Tc-99m Mebrofenin *Bilirubin >1.5mg Adult Dose: 8.0mCi Pediatric Dose Calculation: N/A Pediatric Minimum: 1.0mCi * Pediatric Maximum: 1.0mCi * Reference: #2 Procedure: Hepatic Artery Angiography (Sphere Mapping) Medications for Procedure: Tc-99m MAA Adult Dose: 4.0mCi Pediatric Dose Calculation: N/A Procedure: LeVeen Shunt Patency Medications for Procedure: Tc-99m Sulfur Colloid or MAA Adult Dose: 3.0mCi Procedure: Liver/Spleen Imaging Medications for Procedure: Tc-99m Sulfur Colloid Adult Dose: 5.0mCi Pediatric Dose Calculation: .05mCi/kg Pediatric Minimum: 200uCi Pediatric Maximum: 3.5mCi Reference: #1 Procedure: Lymphoscintigraphy (Breast) Medications for Procedure: Tc-99m Sulfur Colloid (filtered) Adult Dose: 250-550uCi Pediatric Dose Calculation: N/A Procedure: Lymphoscintigraphy (Breast) Medications for Procedure: Tc-99m Tilmanocept (Lymphoseek) Adult Dose: 250-550uCi Pediatric Dose Calculation: N/A Procedure: Lymphoscintigraphy (Melanoma) Medications for Procedure: Tc-99m Sulfur Colloid (filtered) Adult Dose: 500uCi Pediatric Dose Calculation: N/A Procedure: Lymphoscintigraphy (Melanoma) Medications for Procedure: Tc-99m Tilmanocept (Lymphoseek) Adult Dose: 500uCi Pediatric Dose Calculation: N/A Procedure: Lymphoscintigraphy (Melanoma/Breast - 24 hr Injection) Medications for Procedure: Tc-99m Sulfur Colloid (filtered) Adult Dose: 1.8mCi Pediatric Dose Calculation: N/A Procedure: Lymphoscintigraphy (Melanoma/Breast - 24 hr Injection) Medications for Procedure: Tc-99m Tilmanocept (Lymphoseek) Adult Dose: 1.8mCi Pediatric Dose Calculation: N/A Procedure: Lymphoscintigraphy (Lymphedema) Medications for Procedure: Tc-99m Tilmanocept (Lymphoseek) *Apply Topical Lidocaine 30 minutes prior to injections using 4% Anesthetic cream to both feet between webbing of 1st and 2nd toes. Tube is 5 grams of 4% lidocaine Adult Dose: 1.0mCi Pediatric Dose Calculation: N/A Comments: Split dose in (2) 1ml syringes ~500uCi/.1ml each Procedure: Metabolic Tumor Imaging Medications for Procedure: FDG-18 Adult Dose: 10-14mCi Pediatric Dose Calculation: .12mCi/kg Pediatric Minimum: 1.0mCi Pediatric Maximum: 8.4mCi Reference: #2 Procedure: Metabolic Tumor Imaging Medications for Procedure: F-18 Na Flouride Adult Dose: 10-15mCi Pediatric Dose Calculation: .06mCi/kg Pediatric Minimum: .5mCi Pediatric Maximum: 4.2mCi Reference: #2 Procedure: Metabolic Tumor Imaging Medications for Procedure: F-18 fluciclovine(Axumin) Adult Dose: 10.0mCi Pediatric Dose Calculation: N/A Procedure: Metabolic Brain Imaging Medications for Procedure: FDG-18 Adult Dose: 6mCi Pediatric Dose Calculation: .10mCi/kg Pediatric Minimum: 1.0mCi Pediatric Maximum: 5.0mCi Reference: #2 Procedure: Myocardial Perfusion Imaging (Same Day Protocol) Medications for Procedure: Tc-99m Tetrofosmin or Sestamibi *Pharmacologic Stress testing using 0.4mg Lexiscan (regadenoson) for all Myocardial Perfusion protocols Adult Dose: 10mCi (Rest) 30mCi(Stress) *8.0mCi(Rest) *24.0mCi(Stress) Pediatric Dose Calculation: .07mCi/kg, .28mCi/kg Pediatric Minimum: ---, --- Pediatric Maximum: 6.0mCi, 24.0mCi Reference: #1 Comments: *Only used during periods of Tc 99m shortages Procedure: Myocardial Perfusion Imaging (2 day protocol) Day 1(Rest) Day 2(Stress) Medications for Procedure: Tc-99m Tetrofosmin or Sestamibi Adult Dose: 20mCi(Rest), 30mCi(Stress) Pediatric Dose Calculation: .07mCi/kg, .28mCi/kg Pediatric Minimum: ---, --- Pediatric Maximum: 6.0mCi, 24.0mCi Reference: #1 Procedure: Myocardial Perfusion Imaging (Same Day Weight Based Dosing) Medications for Procedure: Tc-99m Tetrofosmin or Sestamibi Adult Dose: Up to 220lbs 10mCi (Rest) 30mCi (Stress) 220-285lbs 13mCi (Rest) 39mCi (Stress) 286-351lbs 16mCi (Rest) 48mCi (Stress) 352lbs and > 19mCi (Rest) 57mCi (Stress) Pediatric Dose Calculation: N/A Procedure: Myocardial Perfusion Imaging (Same Day Weight Based Dosing) Medications for Procedure: Tl-201 Thallous Chloride Adult Dose: 3.25mCi Pediatric Dose Calculation: .035mCi/kg Pediatric Maximum: 2.5mCi Reference: #1 Procedure: Myocardial Infarction Imaging Medications for Procedure: Tc-99m Pyrophosphate Adult Dose: 25.0mCi Pediatric Dose Calculation: N/A Procedure: Parathyroid Imaging Medications for Procedure: Tc-99m Sestamibi Adult Dose: 20.0mCi Pediatric Dose Calculation: .28mCi/kg Pediatric Minimum: 2.0mCi Pediatric Maximum: 20.0mCi Reference: #1 Procedure: Pulmonary Perfusion Imaging Medications for Procedure: Tc-99m MAA Adult Dose: 6.0mCi Pediatric Dose Calculation: .03mCi/kg Pediatric Minimum: 400uCi Pediatric Maximum: 2.1mCi Reference: #2 Procedure: Pulmonary Perfusion Imaging (Pumlonary HTN or Right to Left Shunts) Medications for Procedure: Tc-99m MAA Adult Dose: 1-2.5mCi in max of .2ml volume Pediatric Dose Calculation: N/A Procedure: Pulmonary Perfusion Imaging ( Patients - All Trimesters) Medications for Procedure: Tc-99m MAA Adult Dose: 3.0mCi Pediatric Dose Calculation: N/A Procedure: Pulmonary Ventilation Imaging Medications for Procedure: Xe-133 Gas Adult Dose: 10-30mCi Pediatric Dose Calculation: Adult dose Procedure: Pulmonary Ventilation Imaging Medications for Procedure: Tc-99m DTPA Adult Dose: 35mCi Pediatric Dose Calculation: Adult dose Procedure: Renal Imaging (Cortical) Medications for Procedure: Tc-99m DMSA Adult Dose: 5mCi Pediatric Dose Calculation: .05mCi/kg Pediatric Minimum: 500uCi Pediatric Maximum: 3.5mCi Reference: #2 Procedure: Renal Imaging (Function/ Lasix) Medications for Procedure: Tc-99m MAG 3 *(Lasix IV) 0.5 mg/kg in the adult patient using a minimum of 40 mg and a maximum of 80 mg. The dose for infants (0-1yr. old) is 1mg/kg. The dose for a child (1-16yr. old) is 0.5mg/kg, without a minimum Adult Dose: 10mCi Pediatric Dose Calculation: .15mCi/kg Pediatric Minimum: 500uCi Pediatric Maximum: 10.0mCi Reference: #2 Procedure: Thyroid Uptake/Imaging Medications for Procedure: I-123 Sodium Iodide capsules or solution Adult Dose: 200-500uCi Pediatric Dose Calculation: 5uCi/kg Pediatric Minimum: 50uCi Pediatric Maximum: 250uCi Reference: #4 Procedure: Thyroid Uptake/Imaging Medications for Procedure: I-131 Sodium Iodide Solution (uptake only) Adult Dose: 5-10uCi Pediatric Dose Calculation: N/A Procedure: Thyroid Uptake/Imaging Medications for Procedure: Tc-99m Pertechnetate (scan only) Adult Dose: 10mCi Pediatric Dose Calculation: .14mCi/kg Pediatric Minimum: 1.0mCi Pediatric Maximum: 10.0mCi Reference: #1 Procedure: Tumor Localization Imaging Medications for Procedure: Ga-67 Citrate Adult Dose: 10mCi Pediatric Dose Calculation: .14mCi/kg Pediatric Maximum: 10.0mCi Reference: #1 Procedure: Tumor Localization Imaging Medications for Procedure: In-111 Capromab Pendetide(Prostascint) Adult Dose: 6.0mCi Pediatric Dose Calculation: N/A Procedure: Tumor Localization Imaging (MIBG Scans) Medications for Procedure: I-123 Metaiodobenzylguanidine (MIBG) *120 mg Potassium Iodide in 8 Oz. given PO one hour prior to dosing for procedure Adult Dose: 10mCi Pediatric Dose Calculation: .14mCi/kg Pediatric Minimum: 1.0mCi Pediatric Maximum: 10.0mCi Reference: #2 Procedure: Tumor Localization Imaging (MIBG Scans) Medications for Procedure: I-131Metaiodobenzylguanidine (MIBG) *120 mg Potassium Iodide in 8 Oz. given PO one hour prior to dosing for procedure Adult Dose: 1.0mCi Pediatric Dose Calculation: N/A Procedure: Tumor Localization Imaging Medications for Procedure: In-111 Pentetreotide (Octreoscan) Adult Dose: 6.0mCi Pediatric Dose Calculation: .08mCi/kg Pediatric Maximum: 6.0mCi Reference: #1 Procedure: Tumor Localization Imaging Medications for Procedure: I-131 Sodium Iodide Adult Dose: 5.0mCi Pediatric Dose Calculation: N/A Procedure: Tumor Localization Imaging Medications for Procedure: I-123 Sodium Iodide Adult Dose: 1.5-2.0mCi Pediatric Dose Calculation: .028mCi/kg Reference: No reference information Procedure: Venogram (Upper/Lower Extremities) Medications for Procedure: Tc-99m Ultratag *Syringe prepped with Heparin Lock Flush(concentration of 100 units/ml) volume of ~.1ml used so dose is ~10 units of Heparin for each procedure Adult Dose: 30mCi Pediatric Dose Calculation: N/A Procedure: Ventricular Shunt Imaging Medications for Procedure: Tc-99m DTPA Adult Dose: 1.0mCi Pediatric Dose Calculation: N/A References for Pediatric Administration: Nuclear Medicine Procedure Manual, Division of Nuclear Medicine, [facility]; [email or web address].html [place] Consensus Guidelines for Administered Radiopharmaceutical Activities in Children andAdolescents; http://interactive.snm.org/docs/Pediatric dose consensus guidelines Final 2010.pdf ACR-SNM-SPR Practice guideline for the performance of Scintigraphy for inflammation and infection; www/acr.org.guidelines. Revised 2009 9.1 Boubacar CONCHIS, Manpreet WC, Emilie RD. Nuclear Medicine Diagnosis and Therapy. [employer]1996. Chapter 37, page 930, Table 1. Pediatric weight/dose database file NMIS system: Pediatric Dose = Adult dose (mCi) x Dose Factor Range of Weight (lbs) Dose Factor (%) 0.00-5.00 10 5.01-10.00 10 10.01-15.00 16 15.01-20.00 21 20.01-25.00 25 25.01-30.00 30 30.01-40.00 34 40.01-50.00 41 50.01-60.00 48 60.01-70.00 54 70.01-80.00 61 80.01-90.00 67 90.01-100.00 72 100.01-110.00 78 110.01-120.00 83 120.01-130.00 88 130.01-140.00 94 140.01-142.00 99 142.01-150.00 100 Attention: Any exam, radiopharmaceutical or dosage not included on this list requires physician approval and a written prescription Approved by: Medical Executive Committee and Imaging Services * Sol Rice, RD - 06/24/2025 11:21 AM CDT Nutritional Status/Recommendations/Plan for Follow up: Patient continues with TF - advance to goal Diet: NPO- monitor diet progression and intake Estimated Needs: Estimated Energy Target: 5841-6918 (06/14/25 09) Estimated Protein Target: 105-140 (06/14/25899) Estimated Fluid Target : 1750 (06/14/25899) Nutrition Energy Formula: Calories per kilogram (06/14/25899) Weight Used for Formula: [place] weight (06/14/25899) Current diet/nutrition support: DIET TUBE FEEDING Elemental 1.2,; No,; Orogastric/Nasogastric; Feeding Method: Continuous; Initial Volume in mL/hour: 20; Goal Volume in mL/hour: 60; Feeding Advancement: 10mL q6h Food/Meal: Tube feeding (06/23/251899), Weight status/changes: Height: 5' 8 (172.7 cm) (06/22/251899) Weight: 86 kg (189 lb 9.5 oz) (06/22/251899) Last seven weights (if available) from 05/27/25 1125 to 06/24/25 1124 (Last 7 readings): Weight Weight Method 06/22/251899 86 kg (189 lb 9.5 oz) Actual 06/21/25 0300 94 kg (207 lb 3.7 oz) Actual 06/20/25 0300 93.1 kg (205 lb 4 oz) Actual 06/19/25 0400 98.5 kg (217 lb 2.5 oz) -- 06/18/25 0454 99.9 kg (220 lb 3.8 oz) Actual 06/17/25 0614 107.6 kg (237 lb 3.4 oz) Actual 06/17/25 0300 107.6 kg (237 lb 3.4 oz) Actual 06/16/25 0300 107.1 kg (236 lb 1.8 oz) Actual Admission:Weight: 107.4 kg (236 lb 12.4 oz) (06/13/25599)Weight Method: Actual (06/13/25599) Body mass index is 28.83 kg/m??. [place] body weight: 68.4 kg (150 lb 12.7 oz) Adjusted ideal body weight: 75.4 kg (166 lb 5 oz) Nutrition Focused Exam Physical Findings- Summary: Malnutrition Nutrition Diagnosis: (at risk) (06/14/25899) Subcutaneous Fat Loss Assessment: No findings (06/14/25899) Muscle Wasting Assessment: No findings (06/14/25899) Edema: Normal contour with a barely perceptible pit (no findings) (06/14/25899) Hand Refrigeration Engine Operator: Unable to assess (sedated) (06/14/25899) Percentage of Energy: Other (see comments) (meeting <50% estimated needs ~2 days) (06/14/25899) Percentage of Weight Loss: No history of significant wt loss (06/14/25899) Additional assessment indices: Evaristo Score: 19 (06/24/25 0730) Last Bowel Movement (mm/dd/yyyy): 06/22/25 (06/22/252119) Stool Consistency - Reference [place] Stool Chart: liquid - (type 7) (06/22/252119) Bowel Sounds: All Quadrants: hypoactive (06/23/25 2300) Allergies No Known Allergies Labs: Lab Results Component Value Date/Time NA 141 06/24/2025 03:38 AM K 3.7 06/24/2025 03:38 AM CL 103 06/24/2025 03:38 AM CO2 24 06/24/2025 03:38 AM CA 9.3 06/24/2025 03:38 AM BUN 30 (H) 06/24/2025 03:38 AM CREAT 0.70 06/24/2025 03:38 AM GLUCOSE 185 (H) 06/24/2025 03:38 AM TOTALPROTEIN 6.9 06/23/2025 02:49 AM ALBUMIN 2.9 (L) 06/23/2025 02:49 AM BILITOTAL 0.7 06/23/2025 02:49 AM ALKPHOS 153 (H) 06/23/2025 02:49 AM AST 24 06/23/2025 02:49 AM ALT 23 06/23/2025 02:49 AM ANIONGAP 14 06/24/2025 03:38 AM Lab Results Component Value Date/Time HGBA1C 6.3 (H) 06/14/2025 03:08 AM Lab Results Component Value Date/Time RDW 13.2 06/24/2025 03:38 AM No results found for: CRP , CRPHS Lab Results Component Value Date/Time MG 2.3 06/23/2025 02:49 AM Lab Results Component Value Date/Time CA 9.3 06/24/2025 03:38 AM PO4 4.0 06/23/2025 02:49 AM No results found for: MXEN908 , VITD25 , DQET52GMA3 , SVVU80RDX2 , NQNR68IRZY , KJKO2RFEGGPB , LEST4RPUDCSL , VITAMINDTO , PKZNBFK729 No results found for: ELRBQDDI88 No results found for: FOLATE , FOLATERBC No results found for: ZINC * Tyler Beavers RN - 06/24/2025 10:40 AM CDT Phoned son Woody and gave update on dad after making sure it ok to talk to him from patient * Amberly Wesley SLP - 06/24/2025 8:01 AM CDT [facility] 3K Ph. ; Fax. Acute Speech-Language Pathology Swallow Evaluation 06/24/2025 Room: [address] [place] [address] Name: Isaac Franklin Age: 65 y.o. Date of : 1960 Insurance: Payor: MEDICAID PENDING / Plan: MEDICAID PENDING [place] / Product Type: Other / Patient class: Inpatient Confirmed patient's identification of name and date of : by patient report Consent to treatment given by patient and nurse with results as follows: Onset of illness/injury or date of surgery: 06/12/2025 HPI Isaac Franklin is a 65 y.o. male admitted for chest pain. Subjective Information and Clinical Observations Patient/Family Goals Statement: none stated Pain: Refer to Doc Flowsheet for documented pain levels. Level of Alertness: Alert/Responsive Mood/Affect: Patient calm and cooperative Position: Upright in recliner Circumstances negatively impacting performance this date: impulsivity Objective information Predisposing dysphagia risk factors: diabetes Acute dysphagia risk factors: recent endotracheal intubation x7 days, presence of NG tube, compromised respiratory function, and impaired cough function Signs of possible chronic dysphagia: acute respiratory failure Previous level of swallowing function: normal per patient Patient/family primary swallowing complaint: currently NPO with tube feeding Diet prior to evaluation: NPO with tube feeding Patient has Large bore NG tube and Supplemental oxygen at 3 L via nasal cannula Patient has food allergies: None per patient or chart review. Patient self fed with some assistance due to NG tube Oral Musculature Structure and Function CN V: facial sensation intact bilaterally and jaw movement intact bilaterally CN VII: facial movement intact bilaterally CN IX/X: palate rises symmetrically CN XII: lingual movement intact bilaterally and tongue protrudes to midline Dentition: edentulous Oral Mucosa: tacky Secretion Management:WFL Laryngeal Function: volitional cough is perceptually weak Vocal Quality: weak Oral Phase Lip Seal: leakage Mastication: ineffective and manual removal of bolus required Oral Transit: WFL for liquids and puree Bolus Clearance: unable to clear peaches, WFL for puree and liquids Oral phase summary: impaired - Patient attempted to masticate peaches for extended period, however observed whole pieces of peaches which were not adequately masticated. Cued patient to spit peaches out. Labial leakage appeared to be secondary to coordination difficulties with presence of NG tube and impulsivity/large bites. Pharyngeal Phase Laryngeal Elevation: able to visualize Ice Chip Trials: The patient demonstrated no signs/symptoms of distress during ingestion of ice chips. Thin liquid: Patient demonstrated throat clear response and delayed cough response via open cup andsmall bore straw. Puree: Patient demonstrated throat clear response on textures provided. Mechanical soft: cough and throat clear responses while masticating peaches Clinical representation of potential pharyngeal aspiration suspected: Yes Pharyngeal phase summary: deficits suspected - Patient intermittently demonstrated throat clears/delayed weak cough responses with all consistencies. He was coughing prior to administration of PO trials, therefore it is difficult to discern presence of aspiration/penetration without instrumentation. Swallowing Strategies and Interventions Single, small volume drinks via cup and small bore straw Small bites of food Patient self initiated brief oral hold prior to swallow Assessment Patient presents with clinical signs of oropharyngeal dysphagia, likely acute related to cardiac issues, presence of large bore NG tube. Modified barium swallow study is indicated at this time. Recommend MBS to determine laryngeal/pharyngeal functioning and safest diet. To indicate the medical necessity of this procedure please add Dysphagia, Unspecified to the problem list. Patient was impulsive when eating and drinking, taking large drinks and bites and attempting to take another bite of peaches when he still had several pieces in his oral cavity. Recommend he remain NPO with ice chips at this time pending MBS results. Swallowing Recommendations DIET RECOMMENDATIONS: NPO Allow ice chips for oral comfort and to reduce risk of disuse atrophy: Ensure patient is sitting upright before providing ice chips Provide 1-2 at a time 100% supervision Ensure good oral care prior to providing ice chips (confirm with visual inspection) Only provide when alert If significant coughing occurs, discontinue ice chips PATIENT SPECIFIC SWALLOWING GUIDELINES: Strict Aspiration Precautions HOB > 30 Degrees Oral Care every two hours Monitor for s/s Aspiration Please use suction toothbrush for oral care and NPO spray bottle for oral comfort. Recommendations DISCHARGE RECOMMENDATIONS: IPR * The final discharge location is determined through physician, case management, and patient/caregiver input along with insurance authorization of skilled services when appropriate Recommendations for referral to another service: None at this time Precautions Plan of Care Patient precautions: Aspiration, Fall, and Oxygen Pending MBS results. Please notify speech therapy department should the patient's condition change and/or patient requires PULVERIZER MILL OPERATOR services prior to the next anticipated PULVERIZER MILL OPERATOR visit. Education Disposition Regarding: swallowing evaluation rationale, results and recommendations of evaluation, rationale ofMBS, risk of aspiration with po intake, implications of aspiration, rationale of NPO status, and speech therapy plan of care Learner, method of education, and response to learning listed in Education tab in Epic Before session: Patient sitting on BSC After session: Patient seated in chair, call light in reach, and supervised by staff resident care manager rn Current Diagnoses/Past Medical History Pertinent diagnoses and past medical history related to this hospital stay are present in physicianH&P and physician daily notes. Prior to session, completed thorough chart review. Reviewed prior therapy treatment notes as applicable. Further treatment notes and therapeutic goals can be found in Care Plan Notes. If the patient discharges from facility prior to another therapy visit, this shall serve as the therapy discharge summary Thank you for this referral, AMELIA Poon CCC-PULVERIZER MILL OPERATOR Acute Speech Therapy Charge Zone Phone #[phone] Acute Speech Therapy Charge Pager #[phone] * Love Gale - 06/23/2025 7:57 PM CDT Reason for Visit: Attempted Patient spiritual issues identified summary of patient???s most significant issue(s): Isaac's nurse said that it would be better to go through the advance directive paperwork tomorrowafter a medication is out of his system. Resident Care Manager Plan Spiritual Care Services remain available for referral PRN. Recommendations for Healthcare Team As spiritual needs/distress arise, please contact Spiritual Care Services. We will follow up as needed. Thank you for this referral. Resident Care Manager Love Gale Spiritual Care Team [phone] * Issac Rico MD - 06/23/2025 4:24 PM CDT Images from the original note were not included. Your life is our life's work [facility] Hospitalist/Hospital Medicine Progress Note LOS: 11 days Room/Bed: 4257/01 Patient name: Isaac Franklin Date of : 1960 HOSPITAL COURSE SUMMARY: 65-year-old male admitted to the ICU on 06/12/2025 with inferior STEMI, VF arrest, cardiogenic shock s/p left heart cath with AMBER to the RCA and placement of IABP further complicated by development of refractory VT requiring emergent bedside VA cannulation on 06/12 On 06/13, EKG showed worsening ST elevations and he was taken back to the Intramural Director and found to have acute in-stent thrombosis of the RCA with 100% occlusion now s/p IVUS guided balloon angioplasty and successful removal and reinsertion of IABP. There was concern for poor absorption of DAPT and he was started on Aggrastat gtt.for 18 hours Off pressors and ionotropes since 06/14 Liberated from VA ECMO on 06/17 IABP explanted and extubated 06/19 Heparin gtt discontinued 06/19 ketamine weaned off on 06/21. Hemodynamics are stable TTE on 06/16 with improved EF to 45% Continue diuresis. Renal function remains stable LFTs have normalized Patient was very agitated, and was maintain on ketamine and pracedex gtt. Ketamine has been discontinued since 06/21. Continue Geodon, continue Seroquel, start gabapentin, continue PRN clonazepam. Wean off precedex today. 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 Cardiology is also on board, losartan added by them. Respiratory status is stable. He has a strong cough.Encourage aerobika use when less agitated. Physical therapy recommending IPR at ICU timeline: 06/12: Admitted to the ICU, cardiac arrest, eCPR with pVA cannulation 06/13: Return to the Intramural Director for acute in-stent thrombosis of the RCA s/p angioplasty 06/16: ECMO flows decreased to 2-2.5L 06/17: Liberated from VA ECMO 06/19: Extubated, IABP explanted 06/22: transferred to stepdown Floor timeline 06/23: Mentation improved to AAO x 3 with prompting today, per bedside RN had episodes of agitationovernight; possibly hospital-acquired delirium/sundowning. Discussed with RN to wean off Precedex gtt gradually. Continuing quetiapine 50 mg every 8 hourly, ziprasidone 20 mg twice daily. Will obtain PULVERIZER MILL OPERATOR evaluation for swallowing safety and discontinue NG tube once consistent p.o. intake with stable mentation. Will consider switching IV heparin gtt. to p.o. apixaban once mentation stabilized. Intermittent low BP, relatively stabilizing at 100-110s/60s-70s. Remains on 3 L O2 via nasal cannula. Leukocytosis of 21.7, Hb relatively stable, creatinine stable. Consultants: IP CONSULT TO CARDIAC REHAB IP CONSULT TO SOCIAL WORK IP CONSULT TO CARDIAC REHAB IP CONSULT TO NUTRITION SERVICES IP CONSULT TO ETHICS RESOURCE IP CONSULT TO IV TEAM IP CONSULT TO ELECTROPHYSIOLOGY IP CONSULT TO COMMUNITY HEALTH WORKER IP CONSULT TO ETHICS RESOURCE IP CONSULT TO CASE MANAGEMENT IP CONSULT TO PASTORAL SERVICES SUBJECTIVE: Pt seen and examined at bedside. He is AAO x 3 with prompting currently. He does not voice any new complaints. OBJECTIVE: Temp (24hrs), Av.4 ??F (36.9 ??C), Min:97.2 ??F (36.2 ??C), Max:99.8 ??F (37.7 ??C) BP 106/60 Pulse 67 Temp 98 ??F (36.7 ??C) (Temporal) Resp (!) 35 Ht 5' 8 (1.727 m) Wt 86kg (189 lb 9.5 oz) SpO2 96% BMI 28.83 kg/m?? Intake/Output Summary (Last 24 hours) at 06/23/2025 1624 Last data filed at 06/23/2025 1003 Gross per 24 hour Intake 3109.54 ml Output 1401 ml Net 1708.54 ml Last documented weight: Weight: 86 kg (189 lb 9.5 oz) (06/22/25 1900) EXAM: General: alert, in no distress Neurologic: Grossly normal HEENT: atraumatic, Normocephalic, without obvious abnormality Lungs: clear to auscultation bilaterally, normal respiratory effort Heart: normal rate, regular rhythm, normal S1, S2, no murmurs, rubs, clicks or gallops Abdomen: Soft, non-tender. Bowel sounds normal. No masses, no organomegaly. Extremities: extremities normal, atraumatic, no cyanosis or edema, intact distal pulses, moves all extremities equally, no edema, redness or tenderness in the calves or thighs, normal strength, normal tone Skin: negative LABORATORY: Recent Labs 06/21/25 0302 06/22/25 0430 06/23/25 0249 WBC 12.1* 15.0* 21.7* HGB 9.1* 8.7* 9.9* HCT 27.4* 26.1* 30.1* PLT 302 413 462* Recent Labs 06/21/25 0302 06/22/25 0430 06/23/25 0249 NA 144 142 140 K 3.5 3.4* 3.6 CL 106 104 104 CO2 23 CA 8.4* 8.6* 8.8 BUN 23 23 28* CREAT 0.72 0.73 0.76 GLUCOSE 148* 175* 195* Recent Labs 06/21/25 0302 06/22/25 0430 06/23/25 0249 TOTALPROTEIN 6.0* 6.5 6.9 ALBUMIN 3.0* 3.0* 2.9* BILITOTAL 0.6 0.8 0.7 ALKPHOS 120 145* 153* AST 21 22 24 ALT 21 22 23 No results for input(s): INR , PT in the last 72 hours. Invalid input(s): PTT No results for input(s): BASETROP , 2HRTROP , DELTA , 6HRTROP in the last 72 hours. Diagnostic testing reviewed by me: Medications were reviewed by me. Current Facility-Administered Medications: [COMPLETED] heparin injection 2,800 Units, 2,800 Units, IV, ONE time only, Rafi Hackett MD, 2,800 Units at 06/23/25 0441 [COMPLETED] heparin injection 2,600 Units, 30 Units/kg, IV, ONE time only, Issac Rico MD, 2,600Units at 06/23/25 1430 [COMPLETED] potassium CHLORIDE 20 mEq/100 mL IVPB 20 mEq, 20 mEq, IV, every 2 hours, Ebony Lopez MD, Stopped at 06/22/25 1640 gabapentin (NEURONTIN) 300 mg/6 mL (6 mL) oral solution 400 mg, 400 mg, Oral, every 8 hours, Ebony Lopez MD, 400 mg at 06/23/25 1418 dexmedeTOMIDine in dextrose 5% (PRECEDEX) 400 mcg/100 mL (4 mcg/mL) infusion, 0- 0.8 mcg/kg/hr, IV, titrate, Ebony Lopez MD, Last Rate: 18.43 mL/hr at 06/23/25 1345, 0.7 mcg/kg/hr at 06/23/25 1345 losartan (COZAAR) tablet 12.5 mg, 12.5 mg, Oral, daily, Prince Farr MD, 12.5 mg at 06/22/25 1315 metoprolol (LOPRESSOR) 5 mg/5 mL injection 2.5 mg, 2.5 mg, IV, ONE time only, Ebony Lopez MD clonazePAM (KlonoPIN) tablet 0.25 mg, 0.25 mg, Oral, every 6 hours PRN, Ebony Lopez MD, 0.25 mg at 06/22/25 2318 metoprolol tartrate (LOPRESSOR) tablet 12.5 mg, 12.5 mg, Oral, BID, Prince Farr MD, 12.5 mg at 06/22/25 2146 [COMPLETED] heparin injection 5,600 Units, 60 Units/kg, IV, ONE time only, Prince Farr MD, 5,600Units at 06/22/25 1824 heparin in 0.45% NaCl 25,000 unit/250 mL infusion, 19 Units/kg/hr, IV, titrate, Issac Rico MD, Last Rate: 17.9 mL/hr at 06/23/25 1432, 19 Units/kg/hr at 06/23/25 1432 QUEtiapine (SEROquel) tablet 50 mg, 50 mg, Oral, every 8 hours, Ebony Lopez MD, 50 mg at 06/23/25 1250 sennosides-docusate sodium (SENNA-S) 8.6-50 mg per tablet 1 Tablet, 1 Tablet, Oral, BID, Ebony Lopez MD, 1 Tablet at 06/22/25 0902 ziprasidone (GEODON) capsule 20 mg, 20 mg, Oral, BID WITH meals, Ebony Lopez MD, 20 mg at 06/23/25 0917 furosemide (LASIX) injection 40 mg, 40 mg, IV, BID, 7 hours apart, Karlie Hamilton MD, 40 mg at 06/23/25 0914 [DISCONTINUED] heparin injection 5,000 Units, 5,000 Units, subCUT, every 8 hours, Karlie Hamilton MD, 5,000 Units at 06/22/25 1314 albuterol (PROVENTIL,VENTOLIN) 2.5 mg /3 mL (0.083 %) inhalation solution 2.5 mg, 2.5 mg, Inhalation, resp, every 4 hours PRN, Karlie Hamilton MD sodium chloride flush injection 5 mL, 5 mL, IV, BID, Karlie Hamilton MD, 5 mL at 06/23/25 0914 dextrose 5 % - sodium chloride 0.9 % infusion, , IV, see admin instructions, Karlie Hamilton MD insulin lispro (HumaLOG,ADMELOG) injection 0-18 Units, 0-18 Units, subCUT, every 4 hours, Karlie Hamilton MD, 6 Units at 06/23/25 1302 dextrose 5 % in water 250 mL flush bag 25 mL, 25 mL, IV, see admin instructions, Prince Farr MD atropine injection 0.5 mg, 0.5 mg, IV, every 5 minutes PRN, Prince Farr MD nitroglycerin (NITROSTAT) tablet 0.4 mg, 0.4 mg, Sublingual, every 5 minutes PRN, Prince Farr MD polyethylene glycol (MIRALAX) packet 17 Gram, 17 Gram, Oral, BID, Karlie Hamilton MD, 17 Gram at 06/22/25 0904 ondansetron (ZOFRAN) 4 mg/2 mL injection 4 mg, 4 mg, IV, every 6 hours PRN, Zenaida Michel MD naloxone (NARCAN) 0.4 mg/mL injection 0.1-0.4 mg, 0.1-0.4 mg, IV, see admin instructions, Prince Farr MD aspirin (SNOW CHEWABLE) chewable tablet 81 mg, 81 mg, Oral, daily, Prince Farr MD, 81 mg at 06/23/25 0916 ticagrelor (BRILINTA) tablet 90 mg, 90 mg, Oral, BID, Prince Farr MD, 90 mg at 06/23/25 0917 rosuvastatin (CRESTOR) tablet 20 mg, 20 mg, Oral, daily BEDTIME, Prince Farr MD, 20 mg at 06/22/25 2141 naloxone (NARCAN) 0.4 mg/mL injection 0.1-0.4 mg, 0.1-0.4 mg, IV, see admin instructions, Love Gonzalez NP SODIUM BICARBONATE 1 MEQ/ML (8.4 %) INTRAVENOUS SOLUTION (CABINET OVERRIDE), , , , sodium chloride 0.9 % bolus solution 250 mL, 250 mL, IV, ONE time only, Charles Magana MD HEPARIN (PORCINE) 1,000 UNIT/ML INJECTION SOLUTION (CABINET OVERRIDE), , , , sodium chloride flush injection 10 mL, 10 mL, IV, BID, Zenaida Michel MD, 10 mL at 06/23/25 0915 [DISCONTINUED] replacement reminder - Potassium, 1 Each, See Admin Instructions, see admin instructions, Love Gonzalez NP [DISCONTINUED] replacement reminder-Magnesium, 1 Each, See Admin Instructions, see admin instructions, Love Gonzalez NP [DISCONTINUED] replacement reminder - Phosphorus, 1 Each, See Admin Instructions, see admin instructions, Love Gonzalez NP [DISCONTINUED] replacement reminder-Calcium, 1 Each, See Admin Instructions, see admin instructions, Love Gonzalez NP Primary discharge diagnosis: ST elevation myocardial infarction involving right coronary artery Other active medical issues also addressed during this admission: Active Hospital Problems Diagnosis Atrial fibrillation (CMS/HCC) S/P coronary artery stent placement Ventricular tachycardia (CMS/HCC) AV block Acute diastolic heart failure Diabetes mellitus Laboratory test Patient receiving extracorporeal membrane oxygenation (ECMO) Cardiogenic shock (CMS/HCC) Complete heart block (CMS/HCC) ST elevation myocardial infarction involving right coronary artery Cardiac arrest with ventricular fibrillation (CMS/HCC) CHB (complete heart block) ST elevation myocardial infarction (STEMI) Acute pulmonary edema (CMS/HCC) Acute hypoxemic respiratory failure (CMS/HCC) Lactic acidosis Resolved Hospital Problems No resolved problems to display. ASSESSMENT AND PLAN: STEMI involving RCA s/p coronary artery stent placement P/W two days of worsening chest pain, found to have inferior STEMI on EKG Cardiac catheterization revealed 100% thrombotic occlusion of the proximal right coronary artery s/p AMBER he sustained a ventricular fibrillation arrest at the outside hospital, requiring defibrillation and CPR, and was transferred for emergent intervention. Subsequently developed acute in-stent thrombosis with 100% occlusion, s/p IVUS- guided balloon angioplasty Briefly on IV argatroban gtt. due to concern for poor antiplatelet absorption Echo with initial EF 25%, improved on repeat echo 05/2020 2 to 45% Currently chest pain-free -Continue aspirin 81 mg and ticagrelor 90 mg twice daily -Continue metoprolol tartrate 12.5 mg twice daily - Continue rosuvastatin 20 mg nightly - Continue as needed nitroglycerin - Cardiology on board; appreciate recommendations Cardiac Arrest s/p ROSC Ventricular Fibrillation Pt experienced multiple episodes of ventricular fibrillation following cardiac arrest requiring prolonged resuscitation, multiple rounds of defibrillation, and antiarrhythmic therapy including amiodarone and lidocaine. Temporary transvenous pacemaker were utilized for refractory arrhythmia and complete heart block Weaned off lidocaine and later amiodarone was discontinued following electrophysiology consultationwho deemed it to be ischemically mediated Vtach now resolved since revascularization - Will need LifeVest at discharge - Cardiology on board; appreciate recommendations Paroxysmal atrial fibrillation Recent EKG shows A-fib rhythm, currently HR controlled - Continue metoprolol tartrate 12.5 mg twice daily - Continue IV heparin gtt. until mentation improved; likely switch to p.o. apixaban 5 mg twice daily from tomorrow if okay with cardiology - Optimize electrolytes - keep K > 4 and Mg > 2 Cardiogenic Shock; resolved Developed cardiogenic shock, requiring high-dose vasopressors and mechanical support with IABP and VA ECMO. Liberated from VA ECMO on 06/17, IABP explanted 06/19 Remains off ionotropes and pressors. Hemodynamics relatively stabilizing - Continue telemetry monitoring Complete Heart Block and Bradyarrhythmias Developed complete heart block during his initial presentation and intervention, managed with a temporary transvenous pacemaker. Subsequently had intermittent 2:1 AV block and junctional escape rhythms, with episodes of bradycardia and artifact on telemetry. After stabilization and discontinuation of amiodarone, no further sustained arrhythmias were noted - Cardiology on board; appreciate recommendations Acute decompensation of heart failure with now midrange ejection fraction Initial echo 06/14 with EF 20-25% in the setting of acute STEMI Repeat echo 06/16 with EF improvement to 45% Volume status improving with diuresis Most recent CXR 06/21 with persistent patchy airspace disease pulmonary edema - Monitor volume status clinically - Continue IV Lasix 40 mg twice daily - Monitor renal function and electrolytes while on diuresis - GDMT limited in the setting of borderline BP; for now continue losartan 12.5 mg daily - Strict I's and O's, daily weights, Na < 2 g, Fluids < 1.5 L restricted diet - Cardiology on board; appreciate recommendations Acute Hypoxemic Respiratory Failure Secondary to pulmonary edema Initially requiring intubation and mechanical ventilation, extubated 06/19 Supplemental O2 requirements improving with diuresis Remains at risk for reintubation due to poor secretion management and agitation - Diuresis as above - Will consider repeating CXR - Frequent oral/NT suctioning for secretion clearance - Wean down supplemental O2 as tolerated Acute metabolic encephalopathy Likely multifactorial in the setting of cardiac arrest, critical illness, recent sedating medications due to agitation In ICU required sedation with precedex, ketamine, ketamine discontinued, Precedex continued and started on quetiapine, ziprasidone and gabapentin Currently mentation AAO x 3 with prompting however per RN, increased episodes of agitation overnight; likely sundowning/hospital-acquired delirium - Wean off Precedex gtt.; discussed with RN - Continue quetiapine 50 mg 3 times daily - Continue ziprasidone 20 mg twice daily - Continue gabapentin 400 mg 3 times daily - Continue as needed clonazepam - Delirium precautions - Given improvement in mentation during daytime, will defer head CT Dysphagia Hx ileus Likely in the setting of encephalopathy and critical illnesses Also had ileus in the ICU, resolved with Relistor - 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 diet, will discontinue NG tube once consistent intake - Continue senna and MiraLAX Diabetes Mellitus HbA1c 6.3%. - Continue sliding scale correctional insulin; will switch to ACHS once able to take p.o. - Monitor POC BG and adjust insulin as appropriate Streptococcus pneumoniae and Haemophilus influenzae PNA Leukocytosis PNA positive PCR for Streptococcus pneumoniae and Haemophilus influenzae. Treated empirically with vancomycin and cefepime for 72 hours, then narrowed to ceftriaxone to complete 7-day course Initially WBC improving, today worsened to 21.7 - Monitor fever curve, leukocyte count - Will consider obtaining repeat CXR, UA, blood cultures if WBC continues to uptrend - Remains on heparin gtt. has low concern for VTE Normocytic anemia Hb 9.9; relatively stable - Will monitor - Outpatient workup with PCP Nutrition Status: Provider Assessment/Plan: Symptoms/Signs/Physical Exam: Poor Appetite and Weight Loss Etiology: Acute illness and Chronic illness Nutrition Treatment Plan: - Current Diet and/or Nutritional Supplementation ordered: DIET TUBE FEEDING Elemental 1.2,; No,; Orogastric/Nasogastric; Feeding Method: Continuous; Initial Volume in mL/hour: 20; Goal Volume in mL/hour: 60; Feeding Advancement: 10mL q6h - Daily weights Impact of Malnutrition on patient condition and outcomes: Increased risk of infection and Delayed recovery DVT prophylaxis: DVT Pharmacologic Prophylaxis: heparin in 0.45% NaCl 25,000 unit/250 mL infusion [[id number]] Code status: Full Code Outpatient follow up: PCP, Cardiology Anticipated Disposition Location: Inpatient rehab Timeframe: 06/25/2025 Criteria: Weaned down from supplemental O2/stable O2 requirements, stable leukocytosis, stable mentation and NGT discontinuation MDM complexity: [] Mild [x] Moderate [] High Issac Rico MD 06/23/2025, 4:24 PM * Anyi López FNP - 06/23/2025 8:23 AM CDT CARDIOLOGY PROGRESS NOTE Patient: Isaac Franklin / 65 y.o. / male/ 1960 Today's Date: 06/23/2025 Chief complaint/ Admitting Diagnosis STEMI SUBJECTIVE: Mr. Franklin is sedated and resting comfortably without distress. ROS not obtained. Sitter @ bedside OBJECTIVE: BP 123/55 Pulse 84 Temp 97.2 ??F (36.2 ??C) (Temporal) Resp (!) 32 Ht 5' 8 (1.727 m) Wt 86 kg (189 lb 9.5 oz) SpO2 (!) 85% BMI 28.83 kg/m?? The range of BP in the last 24 hours is:BP: (89-137)/(47-88) Intake/Output Summary (Last 24 hours) at 06/23/2025 0824 Last data filed at 06/23/2025 0700 Gross per 24 hour Intake 2844.54 ml Output 1351 ml Net 1493.54 ml GENERAL: a/o x3, no acute distress, cooperative LUNGS: respirations unlabored; snoring HEART: RRR + murmur Abdomen: soft and non-tender. + BS Extremities: pulses palpable, no edema Data Review: Medications/ Allergies reviewed. Laboratory & imaging data reviewed CBC: Recent Labs 06/21/25 0302 06/22/25 0430 06/23/25 0249 WBC 12.1* 15.0* 21.7* HGB 9.1* 8.7* 9.9* PLT 302 413 462* BMP: Recent Labs 06/21/25 0302 06/22/25 0430 06/23/25 0249 GLUCOSE 148* 175* 195* BUN 23 23 28* CREAT 0.72 0.73 0.76 NA 144 142 140 K 3.5 3.4* 3.6 CO2 29 27 23 MG 2.3 2.2 2.3 Cardiac Tele: NSR rate 84 ; intermittent afib ASSESSMENT: Principal Problem: ST elevation myocardial infarction involving right coronary artery Active Problems: Cardiogenic shock (CMS/HCC) Acute diastolic heart failure Atrial fibrillation (CMS/HCC) Complete heart block (CMS/HCC) Cardiac arrest with ventricular fibrillation (CMS/HCC) CHB (complete heart block) ST elevation myocardial infarction (STEMI) Acute pulmonary edema (CMS/HCC) Acute hypoxemic respiratory failure (CMS/HCC) Lactic acidosis Laboratory test Patient receiving extracorporeal membrane oxygenation (ECMO) Diabetes mellitus S/P coronary artery stent placement Ventricular tachycardia (CMS/HCC) AV block PLAN: 65-year-old male who initially presented to an outside hospital with inferior STEMI 06/12/25, had V-fib arrest requiring defibrillation and cardiopulmonary resuscitation. He received 2 rounds of CPR.He was intubated, sedated and transferred here. He underwent primary PCI of right coronary artery. On his EMS electrocardiogram, he was noted to have complete heart block and a temporary pacemaker was placed which was also kept in place for overdrive pacing if needed. Additionally, for borderline hemodynamics in the Intram[facility], intra-aortic balloon pump was placed. Post PCI, he had incessant VT. This required prolonged cardiopulmonary resuscitation with multiple defibrillations, lidocaine, amiodar one as well as electrolyte supplementation. He was very unstable and required VA ECMO support. He was subsequently noted to have EKG changes and underwent repeat angiogram 06/13/25 which showed acuteto subacute in-stent thrombosis which was treated balloon angioplasty under IVUS guidance. Over preceding week, he has been weaned off inotropes/vasopressors, lidocaine, VA ECMO, IABP, temporary pacemaker. His LVEF was 25% on arrival and most recently improved to 45%. Incessant VT Resolved. He was noted to have slowing vs AV block for which amiodarone has been discontinued as EPconsultation felt VT to be ischemically mediated and stabilized since revascularization. Life vest at discharge. 2. Acute hypoxic respiratory failure. 4L/NC this am 3. Acute diastolic heart failure Improving. Continue IV Lasix with 40 mg twice daily and close monitoring of renal function and electrolytes. Maintain K>4-5 and Mg>2 per primary team. 4. Acute encephalopathy. Currently on Precedex. 5. Cardiogenic shock Resolved Treated with VA ECMO, balloon pump, inotropic and vasopressor support. Off the supports now. 6. STEMI Status post primary PCI of proximal to mid right coronary artery 7. Acute to subacute instent thrombosis Status post balloon angioplasty Continue dual antiplatelet therapy with aspirin 81 mg daily and ticagrelor 90 mg twice daily fpr atleast 1 year since PCI and then monantiplatelet therapy thereafter unless prohibitive. Continue highintensity statin. 8. Paroxysmal atrial fibrillation A. Continue metoprolol /heparin. Recommend triple therapy at discharge. Cosigned by Prince Farr MD at 06/23/2025 3:39 PM CDT * Ebony Lopez MD - 06/22/2025 5:15 PM CDT Handoff given to Dr. Hackett via [employer] staff message. Patient is stable to go to step down * Edwige Swift - 06/22/2025 12:00 PM CDT Ethics re-consulted by significant other Abi on 06/21/25. See previous ethics note from 06/16/25.Ethics informed nursing they would discuss with family in the morning as SO was not bedside currently. Ethics had a discussion with SO and patient this morning bedside. Abi gave ethics a lot of insight into the family dynamics and her concern they do not have Ajit's best interest at heart and are notinvolved/do not help. In the beginning of the admission they had wanted to remove Abi in goals ofcare discussions but [place] is a [place]; therefore, all loved ones have the same authority andright to participate in goals of care in the best interest of the patient as long as they are beingappropriate. Abi has only made decisions in the best interest of the patient; therefore, care team did not have concerns. I explained that this is a reason why DPOA's are so essential in [place]. Ethics explained that without a DPOA, if conflict continues care team usually goes with a majority which would not benefit Abi or the patient in this scenario. Abi gave insight into their 25 year relationship (having been twice) and were in the process of getting again before hospitalization. Ethics discussed the importance of a living will as well so family knows patient's personal preferences and wishes and how helpful this can be. Isaac affirmed that he wants Abi to be his decision-maker. I told Abi and Isaac I would make a note that Abi is the patients trusted decision-maker until he can complete a DPOA as he is waxing and waning a bit but much more oriented today than yesterday. Patient is interested in completing a DPOA naming Abi. Message handed off to nursing and spiritual care when patient deemed to have capacity by care team. Ethics placed SOC note until DPOA can be complete to utilize Abi as primarydecision-maker in the best interest of the patient if the patient loses capacity. Thank you for including ethics in the care of Isaac Franklin. For further questions or concerns, please contact me at [phone]. Edwige Swift MTS, PhD, ANGELIKA-C [employer] * Ebony Lopez MD - 06/22/2025 11:12 AM CDT CRITICAL CARE MEDICINE DAILY PROGRESS NOTE PCP: No primary care provider on file. Hx: Isaac Franklin is a 65 y.o. male admitted 06/12/2025 after presenting to an outside ED with a chief complaint of chest pain. Past medical history is limited (ED documentation states patient denied medical problems) but patient is a known tobacco user. On the day prior to admission the patient presented to [facility] with a chief complaint of chest pain which started approximately 2 days prior to presentation and had progressively worsened. The patient noted associated nausea and denies radiation. While awaiting further evaluation at the OSH the patient sustained a VF arrest which was treated with ACLS and achieved ROSC after 2 rounds of resuscitation. EKG revealed inferior ST elevation and lateral ST depression. 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 LHC revealed 100% thrombus of the proximal RCA which was managed with AMBER. The patient warranted IABP for support and was transferred to ICU. Upon arrival to ICU the patient experienced VF arrest. ACLS was initiated. ROSC was intermittently achieved multiple times during resuscitative efforts but the patient continued to return to VF. The decision wasmade to cannulate for ECMO. This was completed and the patient was placed on VA ECMO Pertinent PMHx: Past Medical History: Diagnosis Date Patient denies medical problems Current Care Plan Summary: 65-year-old male admitted to the ICU on 06/12/2025 with inferior STEMI, VF arrest, cardiogenic shock s/p left heart cath with AMBER to the RCA and placement of IABP further complicated by development of refractory VT requiring emergent bedside VA cannulation on 06/12 On 06/13, EKG showed worsening ST elevations and he was taken back to the Intramural [facility] and found to have acute in-stent thrombosis of the RCA with 100% occlusion now s/p IVUS guided balloon angioplasty and successful removal and reinsertion of IABP There was concern for poor absorption of DAPT and he was started on Aggrastat gtt.for 18 hours Off pressors and ionotropes since 06/14 Liberated from VA ECMO on 06/17 IABP explanted and extubated 06/19 Heparin gtt discontinued 06/19 ketamine weaned off on 06/21. Hemodynamics are stable TTE on 06/16 with improved EF to 45% Continue diuresis. 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 Cardiology is also on board, losartan added by them. Patient was very agitated, and was maintain on ketamine and pracedex gtt. Ketamine has been discontinued since 06/21. Continue Geodon, continue Seroquel, start gabapentin, continue PRN clonazepam. Wean off precedex today. Mental status has much improved Respiratory status is stable. He has a strong cough Encourage aerobika use when less agitated Physical therapy ICU timeline: 06/12: Admitted to the ICU, cardiac arrest, eCPR with pVA cannulation 06/13: Return to the [facility]am[facility] for acute in-stent thrombosis of the RCA s/p angioplasty 06/16: ECMO flows decreased to 2-2.5L 06/17: Liberated from VA ECMO 06/19: Extubated, IABP explanted 06/22: transferred to stepdown Major active problem list: Principal Problem: ST elevation myocardial infarction involving right coronary artery Active Problems: Cardiogenic shock (CMS/HCC) Complete heart block (CMS/HCC) Cardiac arrest with ventricular fibrillation (CMS/HCC) CHB (complete heart block) ST elevation myocardial infarction (STEMI) Acute pulmonary edema (CMS/HCC) Acute hypoxemic respiratory failure (CMS/HCC) Lactic acidosis Laboratory test Patient receiving extracorporeal membrane oxygenation (ECMO) Diabetes mellitus S/P coronary artery stent placement Ventricular tachycardia (CMS/HCC) AV block Acute diastolic heart failure Subjective: 24 hour events - as above Objective: Current vital signs Blood pressure 132/62, pulse 69, temperature 98.9 ??F (37.2 ??C), temperature source Oral, resp. rate 29, height 5' 8 (1.727 m), weight 94 kg (207 lb 3.7 oz), SpO2 94%. 24 hour BP and temperature range BP: (88-135)/(47-100) Temp (24hrs), Av.4 ??F (36.9 ??C), Min:97.5 ??F (36.4 ??C), Max:99.3 ??F (37.4 ??C) Input/Output 06/20 1900 - 06/22 0659 In: 2601.7 [I.V.:1891.7] Out: 3770 [Urine:3720; Drains:50] PHYSICAL EXAM: General: awake, pleasant Neuro: verbal, appropriately answers all the question, following commands in all extremities Cardiac: RRR Pulm: Coarse Abdomen: Soft Extremities: Warm Data Review: BMP: Recent Labs 06/20/2531706/21/25 0302 06/22/25 0430 GLUCOSE 120* 148* 175* BUN 20 23 23 CREAT 0.67 0.72 0.73 NA 145 144 142 K 3.3* 3.5 3.4* CL 105 106 104 CO2 ANIONGAP 13 9 11 MG 2.2 2.3 2.2 PO4 3.1 3.2 3.6 estimated creatinine clearance is 113.7 mL/min (by C-G formula based on SCr of 0.73 mg/dL). LFTs: Recent Labs 06/20/2531706/21/25 0302 06/22/25 0430 ALKPHOS 135* 120 145* ALT 25 21 22 AST 24 21 22 BILITOTAL 0.8 0.6 0.8 ALBUMIN 3.0* 3.0* 3.0* CBC: Recent Labs 06/20/2531706/21/25 0302 06/22/25 0430 WBC 12.4* 12.1* 15.0* HGB 9.4* 9.1* 8.7* HCT 28.3* 27.4* 26.1* PLT 240 302 413 MCV 95.0 94.8 95.3 Coagulation: Recent Labs 06/20/25317 APTT 27.4 ABG: Lab Results Component Value Date/Time SPECIMENSOU Arterial 06/18/2025 07:15 AM SPECIMENSOU Arterial 06/18/2025 07:15 AM PHBLOODPOC 7.45 06/18/2025 07:15 AM [id number] 35 06/18/2025 07:15 AM PO2POC 131 (H) 06/18/2025 07:15 AM UBN1LSA 24 06/18/2025 07:15 AM W1XQNTUM 99 (H) 06/18/2025 07:15 AM [id number] 25 06/18/2025 07:15 AM BEPOC 0 06/18/2025 07:15 AM LACTATE 0.8 06/18/2025 07:15 AM PATIENTTEMP 37.0 06/18/2025 07:15 AM PHTEMPCORR 7.45 06/18/2025 07:15 AM [id number] 35 06/18/2025 07:15 AM [id number] 131 (H) 06/18/2025 07:15 AM Lactic acid: Lab Results Component Value Date/Time LACTATE 0.8 06/18/2025 07:15 AM LACTATE 0.9 06/17/2025 11:01 PM LACTATE 0.7 06/17/2025 05:19 PM LACTATE 11.5 (HH) 06/12/2025 05:42 AM Radiology: Relevant imaging reviewed Assessment and Plan Neuro/Psych: Acute metabolic encephalopathy in the setting of cardiac arrest and critical illness-- improved - Agitation is difficult to control -wean precedex, ketamine GTT discontinued since 06/21 -continue Geodon, continue Seroquel. Start gabapentin. 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 He did have complete heart block at his presentation -- seen by P, amiodarone was stopped. Intermittently having atrial fibrillation, along with bradycardia, Tachy Santino syndrome. Ideally should have a pacemaker/ICD in my opinion, will defer to EP - Obtain twelve-lead ECG daily for QTC monitoring. - Repeat TTE on 06/16 with EF 45% - Liberated from VA ECMO on 06/17 - IABP explanted 06/19 - Remains off ionotropes and pressors. Hemodynamics stable - Continue DAPT. Heparin gtt discontinued 06/19 - Continue statin -continue losartan -avoid AV block imaging - Trend electrolytes. Keep magnesium greater than 2 and K greater than 4 Pulmonary: Acute hypoxic respiratory failure-multifactorial in etiology secondary to acute infectious process plus pulmonary edema - Extubated 06/19 -on supplemental oxygen -continue diuresis GI/NUT: Ileus -BM on 06/18 after starting relistor -- no one bowel regimen -Resume trickle feeds SUP, Pepcid discontinued after extubation on 06/19 Renal/LYTES/Acid-Base: GÉNESIS - resolved - Monitor urine output - Trend electrolytes - Diuresis Infectious Disease: Streptococcal pneumonia, H. influenzae pneumonia -Completed meropenem and vancomycin for 72 hours in the setting of semisterile procedure -Narrowed to CTX on 06/15 New fever on 06/18 - Culture negative - No recurrence of fever - Hold abx Hem/Onc/Coag: DVTp, heparin gtt discontinued 06/19. SQ heparin started 06/20 Endocrine: Diabetes, new dx, likely type 2 -HbA1C - 6.3 -Continue current insulin regimen -Keep BG 120-180 Musculoskeletal/Skin: Routine ICU care Physical therapy Family communication: Ongoing updates Critical care time: 35 min * Leilani Mckeon, Physical Therapist - 06/22/2025 9:30 AM CDT [facility]. Acute Physical Therapy Evaluation 06/22/2025 Room: [address] [place] [address] Name: Isaac Franklin Age: 65 y.o. Date of : 1960 Insurance: Payor: MEDICAID PENDING / Plan: MEDICAID PENDING [place] / Product Type: Other / Patient Class: Inpatient Onset of illness/injury or date of surgery: 06/12/2025 Subjective Information/History Subjective Information Provided By: Patient and Family-spouse, Abi Prior level of Function: independent without assistive device. Retired x ~2 years. Drives. Walks daily. Patient does not report a history of falls Home Environment: Number of Outside Stairs: 2 steps with rail, considering installing a ramp Bumper pull camper Small tub/shower with seat & grab bar Available Adaptive Equipment: Cane: single point cane Assistance available: lives with spouse, Abi, who is available at all times to assist as needed. Patient/Family Goals Statement: full recovery. Pain: Refer to Doc Flowsheet for documented pain levels. Consent To Treatment Given By: Patient and Nurse Safety Awareness Orientation: Person, Date, Situation, and hospital . Patient will intermittently make comments that still demonstrate ongoing cognition deficits @ this time. Command Following: Good Safety Awareness: Fair and poor attention to task Precautions Patient Precautions: Fall Risk, Oxygen, and Bleeding Bracing/Orthotics: none Other Pertinent Findings: IV and NG tube Weight Bearing: No Restrictions Objective Information/Examination Muscle Tone: Normal Coordination: Abnormal: impaired in standing due to poor balance. Sensation: Intact to light touch ROM: Right UE: Active: WFL Left UE: Active: WFL Right LE: Active: WFL Left LE: Active: WFL Strength: Right UE: Not formally manually muscle tested, patient demonstrated adequate strength for functional tasks Left UE: Not formally manually muscle tested, patient demonstrated adequate strength for functionaltasks Right LE: 5/5. Left LE: 5/5. Functional Mobility: Supine to sit: minimal assistance to steady trunk as rising fully off bed. Sit to stand: minimal assistance steadying assistance as rising to standing. Completed from edge ofbed. Gait Trainin feet with no device initially, then unilateral hand hold, & bilateral hand hold. moderate assistance steadying assistance. Utilized PT & OT for physical assistance as needed on either side of patient & nursing manages lines. Deficits affecting function/Deviations noted: unable to maintain straight trajectory, veers side to side down hallways. More exaggerated when talking to someone or turning head. Scissoring gait at times & narrow base of support. Increased lateral sway. Patient required verbal cues energy conservation, proper posture, use of UE's in transfers, to get center of gravity over ASHLEY, and gait training cues provided Balance: Sitting Balance: Patient sat edge of bed x 5 minutes with supervision Standing: moderate assistance Vitals Patient on 2 liters/min via nasal cannula On continuous monitor At rest: HR: 67 bpm, O2 Sat: 95%, BP: 106/64 After activity: HR: 74 bpm, O2 Sat: 95%, BP: 127/79 [facility] AM-PAC Basic Mobility How much help from another person does the patient currently need? Score 1. Turning from your back to your side while in a flat bed without using bedrails? 4 - None (independent) 2. Moving from lying on your back to sitting on the side of a flat bed without using bedrails? 3 - A little (supervision to min assist) 3. Moving to and from a bed to a chair (including a wheelchair)? 3 - A little (supervision to min assist) 4. Standing up from a chair using your arms (e.g., wheelchair, or bedside chair)? 3 - A little (supervision to min assist) 5. Walking in hospital room? 2 - A lot (max to mod assist) 6. Climbing 3-5 steps with a railing? 1 - Total assist or cannot do at all Total score 16/24 0-16 - indicates likely facility discharge 17-24 indicates likely community discharge * scores determined based on patient report, observation or professional expertise Assessment/Evaluation Isaac Franklin is a 65 y.o. male is referred for physical therapy. Based on objective findings above, the patient presents with the following impairments: balance deficits, decreased activity tolerance, gait disturbance, medical complexity, pain, and risk for falls which impacts independence with functional mobility. Patient is currently functioning significantly below his prior level of function. Patient admitted with chest pain. Found to have sustained STEMI. Hospitalization complicated by Vfib arrest, stent x 2, need for IABP from 06/12-06/19, need for VA-ECMO from 06/12-06/17, transvenous pacemaker due to bradycardia, cardiogenic shock, pneumonia, metabolic encephalopathy with concern for anoxic brain injury, agitation, & ileus. Patient alert & willing to work with therapy. Motivated to mobilize. Upon PT stating patient has poor balance patient makes statement to agree with this assessment. Patient demonstrates good strength & activity tolerance, but has greatly reduced balance & safety awareness at this time. Anticipate ongoing need for PT during & after hospitalization. RASS [place] Agitation Scale: 0 Alert and Calm Plan will include but is not limited to: Gait Training, Transfer Training, Patient/Family Education, Stair Training, Home & Safety Instruction, Balance Training, Functional Cognition Training, Neuromuscular Re-education, Car Transfers, Equipment Training, Functional Strengthening, and Monitor and adjust treatment as needed based on patient response/vital signs, in accordance with physicians ordered guidelines. Specific focus for next treatment session: improve independence with transfers & gait. Improve standing balance. PT and OT sessions combined. Two therapists needed due to impulsive behavior impacting safety during transfers and progressing advanced transfer skills. Will separate future session to maximize time in therapy and progression with individual disciplines. PT Evaluation: high complexity Recommendations During acute hospitalization, recommend high frequency treatment (5-7 times per week). Current planof care to continue until goals met or patient discharges from facility. Functional Prognosis: Based on prior level of function and deficits, anticipate good progress. Based on PT assessment of and/or progress with physical function, AM-PAC Basic Mobility score, potential for improvement, available home support, participation in therapeutic intervention, tolerance for activity, and safety , anticipated discharge disposition: Inpatient rehab unit/facility (06/22/25929). Pt needs intensive skilled PT services. Patient is actively engaged in therapy, has the potential to make progress toward goals and tolerate 3 hours of therapy. . * The final discharge location is determined through physician, case management, and patient/caregiver input along with insurance authorization of skilled services when appropriate Plan of care and/or discharge recommendations shared with: Patient, Family, Registered Mail Clerk, and Nurse PT Recommended DME: To be determined (06/22/25929). Daily activity recommendations: Up with 2 assist, Ambulate to bathroom with staff, Up in chair for meals, and Ambulation with nursing three times daily Recommendations for referral to another service: none Education/Training Provided Additional education provided: daily activity with nursing staff, discharge planning, functional mobility, plan of care, rehabilitation principles, and safety Learner, method of education, and response to learning listed in Education tab in Epic. Disposition At start of session, patient found lying in bed At end of session, patient left lying in bed, call light in reach, supervised by staff resident care manager rn , spouse & nurse present in room, and staff notified of patient's location Current Diagnoses/Past Medical History Pertinent diagnoses and past medical history related to this hospital stay are present in physicianH&P and physician daily notes. Prior to PT session a thorough chart review was completed including prior PT notes as applicable. Further treatment notes and therapeutic goals can be found in Care Plan Notes. If the patient discharges from the facility before another therapy visit, this shall serve as the therapy discharge summary. Thank you for this referral, Leilani Mckeon, Physical Therapist * Karen Jones Occupational Therapist - 06/22/2025 9:30 AM CDT [facility]. Acute Occupational Therapy Evaluation 06/22/2025 Room: [address] [place] [address] Name: Isaac Franklin Age: 65 y.o. Patient Class: Inpatient Date of : 1960 Insurance: Payor: MEDICAID PENDING / Plan: MED[place]ID PENDING [place] / Product Type: Other / Prior to OT session thorough chart review completed, including prior OT notes as applicable. Consent to evaluate provided by patient and nurse Date of admission: 06/12/2025 SUBJECTIVE Occupational Profile Information provided by: patient, family, and chart Prior Level of Function ADLs: independent IADLs: independent - Pt and his share roles to complete IADL tasks Patient does drive Functional mobility: independent - No AD Falls: None Home Information Self-care assist available at home: Pt lives with his who is able to provide assistance 18/03 if needed. Home environment: Mobile home - Bumper Pull Camper 2 step(s) to enter Small Tub/shower with built in seat Durable medical equipment already in home: Canes: single point cane Grab bars Additional Information Patient/family statement/goal(s): recover well; return to PLOF Comments: Pt agreeable to participate in therapy. Pain: Refer to flowsheet for documentation of pain and interventions. OBJECTIVE Cognition Level of alertness: alert and drowsy Orientation: oriented to person, situation, month, and year Command following: good Safety awareness: fair; limited by slow processing, decreased problem solving, decreased insight into deficits, and decreased attention Memory: WFL conversationally Vision: denies acute changes UE Function UE Assessment Right Left ROM Active: WFL Active: WFL Strength WFL; 4+/5 WFL; 4+/5 All additional UE assessments (including tone, coordination, sensation, and edema) not indicated ordeemed WFL. Lower extremity comments: See PT note for additional details. Occupational Performance Activities of Daily Living Feeding: NT; anticipate independent for [id number] excursion Grooming: NT; anticipate supervision to set up task seated EOB to wash face Upper extremity dressing: minimal assistance seated EOB to thread arms to don/doff gown around backside Lower extremity dressing: supervision for watchful oversight for safety and for possible LOB and toset up task seated EOB to don/doff socks using figure four technique. Toileting: moderate assistance in standing for clothing management and adequate posterior sadie-careusing UE support from therapist. Toilet transfer: minimal assistance sit < > stand from EOB during simulated toilet transfer using UE support from therapist All tasks not tested with anticipated assist levels are based on observed tasks and movement patterns. Functional Mobility All mobility completed with gait belt and non-skid socks Bed mobility: minimal assistance supine < > sit EOB for trunk support with HOB slightly elevated using BUE support for scooting. Sit to stand: minimal assistance from EOB using BUE support and WAREHOUSE ANALYST from therapist. Functional ambulation: moderate assistance x 300 feet using UE support from therapist with intermittent BUE support needed from therapists for safety and steadying. Sitting balance: supervision for watchful oversight for safety and for possible LOB for static tasks and dynamic tasks ~5 minutes using BUE support and no major LOB observed Standing balance: moderate assistance for static tasks and dynamic tasks for safety and steadying using UE support from therapist and increased unsteadiness observed with multiple LOB requiring therapist correction Patient required verbal, visual, and tactile cues for attention to task, safety awareness while completing functional mobility and ADL tasks, and problem solving. [facility] Daily Activity How much help from another person does the patient currently need? Score 1. Putting on and taking off regular lower body clothing? 3 - A little (supervision to min assist) 2. Bathing (including washing, rinsing, drying)? 2 - A lot (max to mod assist) 3. Toileting, which includes using toilet, bedpan or urinal? 2 - A lot (max to mod assist) 4. Putting on and taking off regular upper body clothing? 3 - A little (supervision to min assist) 5. Taking care of personal grooming such as brushing teeth? 3 - A little (supervision to min assist) 6. Eating meals? 4 - None (independent) Total score 17/24 0-19 indicates likely facility discharge 19-24 indicates likely community discharge *Scores determined based on patient report, observation or professional expertise* Vitals Current O2 requirement: 3 L/min via nasal cannula Vital signs stable throughout. On continuous monitoring throughout session. RN present and monitoring patient's lines and vital signs throughout session. Precautions Patient precautions: fall, oxygen, and bleeding Patient bracing: none Weight bearing: no restrictions ASSESSMENT & PLAN Evaluation Details Isaac Franklin is a 65 y.o. male referred for OT following admission for STEMI involving right coronary artery and is s/p AV ECMO. Additional pertinent diagnoses and past medical history related to this hospital stay are present in physician H&P and physician daily notes. PT and OT combined this date due to RN reported need for two therapists to manage progressing advanced transfer skills and medical complexity impacting safety during transfers. Will separate future sessions to maximize time in therapy and progression with individual disciplines and Patient still requires assist x 2 with respiratory therapy instructor. OT evaluation: Moderate complexity Assessment Patient is currently functioning below his prior level of function. Patient presents with acute functional deficits including: Functional balance Safety awareness Medical complexity These deficits impact patient ability to complete: Functional mobility Bathing Toileting Dressing Personal hygiene/grooming Patient would benefit from continued skilled OT services in order to increase occupational performance through modification and remediation approaches such as ADL training, balance training, functional transfer training, home safety education, and patient education Plan During acute hospitalization, recommend high frequency treatment (5-7 times/week). Current plan of care to continue until goals met or patient discharges from facility Anticipate ongoing OT treatment sessions with specific focus on bed mobility, standing balance, OOBADLs, safety awareness, and fall prevention Recommendations Based on OT assessment of patient's ability to complete self care tasks, AM-PAC Daily Activity Score, functional cognition and safety awareness, potential for improvement, available home support, participation in therapeutic intervention, and tolerance for activity, anticipated discharge disposition, once medically ready: Inpatient rehab unit/facility (06/22/25928). Rationale: Patient needs intensive, inpatient skilled OT services. Patient is actively engaged in therapy, and has the potential to make progress towards goals for 3 hours of therapy daily. .Quick progression anticipated. * The final discharge location is determined through physician, case management, and patient/caregiver input along with insurance authorization of skilled services when appropriate. Plan of care and discharge recommendations shared with patient, foster care social worker, and PT OT recommended DME and AE upon discharge: No new DME recommended (06/22/25928) No new additional adaptive equipment necessary (06/22/25928) Education provided to patient and spouse regarding OT recommendations and plan of care, role of therapy in discharge recommendations, safety awareness, standing balance, proper breathing techniques, and goals for therapy. Education response: verbalized understanding and would benefit from reinforcement Nursing Staff Mobility Recommendations Recommended daily activity during admission: toileting in bathroom, up to chair for meals, and assist x 1 using WAREHOUSE ANALYST Disposition At start of session, patient found lying in bed At end of session, patient left in bed, call light in reach, phone in reach, patient instructed notto get up without staff assistance, and RN present in room, and staff notified of patient location/events of session Further treatment notes and therapeutic goals can be found in Care Plan Notes. If the patient discharges from facility before another therapy visit, this shall serve as therapy discharge summary. Thank you for this referral, KAREN JONES Occupational Therapist * Prince Farr MD - 06/22/2025 7:11 AM CDT Cardiology Progress Note Patient: Isaac Franklin / 65 y.o. / male : 1960 Today's Date: 06/22/2025 SUBJECTIVE: Mr. Franklin reports mechanical soreness of chest wall. Otherwise no other chest pain, dyspnea, palpitations, syncope, orthopnea, edema, or paroxysmal nocturnal dyspnea. He has had previous agitation which has improved per nursing report. Current medicines reviewed. Chart reviewed. Recent Cardiac Testing: OBJECTIVE: BP 105/88 Pulse 79 Temp 99.6 ??F (37.6 ??C) (Oral) Resp 18 Ht 5' 8 (1.727 m) Wt 94 kg (207 lb 3.7 oz) SpO2 96% BMI 31.51 kg/m?? The range of BP in the last 24 hours is:BP: (78-137)/(40-88) Intake/Output Summary (Last 24 hours) at 06/22/2025 1802 Last data filed at 06/22/2025 1745 Gross per 24 hour Intake 733.35 ml Output 1101 ml Net -367.65 ml General appearance: no acute distress Neck: borderline jugular venous distension Lungs: Diffuse bibasilar crackles. Heart: S1 and S2 normal. 2/6 systolic murmur present. Abdomen: soft and non-tender. Extremities: no edema Data Review: Laboratory & imaging data reviewed CBC: Recent Labs 06/20/2531706/21/2530106/22/25 043 WBC 12.4* 12.1* 15.0* HGB 9.4* 9.1* 8.7* PLT 240 302 413 BMP: Recent Labs 06/20/2531706/21/2530106/22/25 043 GLUCOSE 120* 148* 175* BUN 20 23 23 CREAT 0.67 0.72 0.73 NA 145 144 142 K 3.3* 3.5 3.4* CO2 27 29 27 MG 2.2 2.3 2.2 TROPONIN T, BASELINE 5TH GEN Date Value Ref Range Status 06/11/2025 6 <=15 ng/L Final Cardiac telemetry monitoring: sinus rhythm with rate 50-60s. Intermittent PACs present with occasional of 2:1 second degree AV block. ASSESSMENT: Principal Problem: ST elevation myocardial infarction involving right coronary artery Active Problems: Cardiogenic shock (CMS/HCC) Complete heart block (CMS/HCC) Cardiac arrest with ventricular fibrillation (CMS/HCC) CHB (complete heart block) ST elevation myocardial infarction (STEMI) S/P coronary artery stent placement Ventricular tachycardia (CMS/HCC) AV block Acute diastolic heart failure Acute pulmonary edema (CMS/HCC) Acute hypoxemic respiratory failure (CMS/HCC) Lactic acidosis Laboratory test Patient receiving extracorporeal membrane oxygenation (ECMO) Diabetes mellitus 65-year-old male who initially presented to an outside hospital with inferior STEMI, had V-fib arrest requiring defibrillation and cardiopulmonary resuscitation. He received 2 rounds of CPR. He was intubated, sedated and transferred here. He underwent primary PCI of right coronary artery. On his EMS electrocardiogram, he was noted to have complete heart block and a temporary pacemaker was placed which was also kept in place for overdrive pacing if needed. Additionally, for borderline hemodynamics in the Intramural Director, intra-aortic balloon pump was placed. Post PCI, he had incessant VT. This required prolonged cardiopulmonary resuscitation with multiple defibrillations, lidocaine, amiodarone as well as electrolyte supplementation. He was very unstable and required VA ECMO support. He was subsequently noted to have EKG changes. He underwent repeat angiogram which showed acute to subacute in-stent thrombosis which was treated balloon angioplasty under IVUS guidance. Over preceding week, he has been weaned off inotropes/vasopressors, lidocaine, VA ECMO, IABP, temporary pacemaker. His LVEF transiently decreased to 25%. Most recently 45%. 06/21-he continues to be off any mechanical or inotropic support. He is off lidocaine. He continuesto be in amiodarone drip. He has an NG tube for feeds where trickle feeds have been recently started. His telemetry shows occasional PACs with baseline artifact. There also appears to be occasions of 2-1 AV conduction block. Incessant VT Resolved. He was noted to have slowing vs AV block. EP was consulted on 06/21/25. IV amiodarone wasdisconstinued. Initially treated with VA ECMO support, IV lidocaine, IV amiodarone.. Acute hypoxic respiratory failure Acute diastolic heart failure Improving Acute encephalopathy. Currently on Precedex. Cardiogenic shock Resolved Treated with VA ECMO, balloon pump, inotropic and vasopressor support. Off the supports now. STEMI Status post primary PCI of proximal to mid right coronary artery Acute to subacute instent thrombosis Status post balloon angioplasty 8. Anemia PLAN: EP recommended stopping amiodarone. He is now off it. No arrhythmia recurrence. Plan for [facility] at discharge. Continue IV Lasix with 40 mg twice daily and close monitoring of renal function and electrolytes. Maintain K>4-5 and Mg>2 per primary team. Continue dual antiplatelet therapy with aspirin 81 mg daily and ticagrelor 90 mg twice daily fpr atleast 1 year since PCI and then monantiplatelet therapy thereafter unless prohibitive. Continue high intensity statin with Crestor 20 mg daily. He has had low normal blood pressure. Start low dose losartan 12.5 mg daily. Evaluation/management of other/noncardiac problems per primary team. Addendum: Noted to be in intermittent atrial fibrillation with rapid ventricular response. Start lopressor 12.5 mg twice daily with telemetry monitoring. Start heparin drip for thromboembolism prophylaxis. The risks, benefits and alternative of the above management were discussed with patient and/or family. All questions were answered and with shared decision making model, above management options are being implemented. Further management based on follow-up. Prince Yordan MD Interventional and Structural Customer Care Manager * Ebony Lopez MD - 06/21/2025 10:51 AM CDT CRITICAL CARE MEDICINE DAILY PROGRESS NOTE PCP: No primary care provider on file. Hx: Isaac Franklin is a 65 y.o. male admitted 06/12/2025 after presenting to an outside ED with a chief complaint of chest pain. Past medical history is limited (ED documentation states patient denied medical problems) but patient is a known tobacco user. On the day prior to admission the patient presented to [facility] with a chief complaint of chest pain which started approximately 2 days prior to presentation and had progressively worsened. The patient noted associated nausea and denies radiation. While awaiting further evaluation at the OSH the patient sustained a VF arrest which was treated with ACLS and achieved ROSC after 2 rounds of resuscitation. EKG revealed inferior ST elevation and lateral ST depression. 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 LHC revealed 100% thrombus of the proximal RCA which was managed with AMBER. The patient warranted IABP for support and was transferred to ICU. Upon arrival to ICU the patient experienced VF arrest. ACLS was initiated. ROSC was intermittently achieved multiple times during resuscitative efforts but the patient continued to return to VF. The decision wasmade to cannulate for ECMO. This was completed and the patient was placed on VA ECMO Pertinent PMHx: Past Medical History: Diagnosis Date Patient denies medical problems Current Care Plan Summary: 65-year-old male admitted to the ICU on 06/12/2025 with inferior STEMI, VF arrest, cardiogenic shock s/p left heart cath with AMBER to the RCA and placement of IABP further complicated by development of refractory VT requiring emergent bedside VA cannulation on 06/12 On 06/13, EKG showed worsening ST elevations and he was taken back to the Intramural Director and found to have acute in-stent thrombosis of the RCA with 100% occlusion now s/p IVUS guided balloon angioplasty and successful removal and reinsertion of IABP There was concern for poor absorption of DAPT and he was started on Aggrastat gtt.for 18 hours Off pressors and ionotropes since 06/14 Liberated from VA ECMO on 06/17 IABP explanted and extubated 06/19 Heparin gtt discontinued 06/19 Hemodynamics are stable TTE on 06/16 with improved EF to 45% Continue diuresis. Renal function remains stable LFTs have normalized Patient is having intermittent 2-1 AV conduction, but keeping his history of incessant VT, will keep him on amiodarone GGT. Keep attention more than for ammunition more than two. Ongoing issues with agitation, now on precedex and ketamine gtt -- already on Geodon, will add Seroquel. Will also add clonazepam. Wean ketamine GTT today. Continue clinical hold, sitter at bedside Respiratory status is stable. He has a strong cough but is not clearing his secretions Close monitoring of respiratory status in the ICU. At high risk for reintubation Encourage aerobika use when less agitated Physical therapy when possible ICU timeline: 06/12: Admitted to the ICU, cardiac arrest, eCPR with pVA cannulation 06/13: Return to the Intramural Director for acute in-stent thrombosis of the RCA s/p angioplasty 06/16: ECMO flows decreased to 2-2.5L 06/17: Liberated from VA ECMO 06/19: Extubated, IABP explanted Major active problem list: Principal Problem: ST elevation myocardial infarction involving right coronary artery Active Problems: Cardiogenic shock (CMS/HCC) Complete heart block (CMS/HCC) Cardiac arrest with ventricular fibrillation (CMS/HCC) CHB (complete heart block) ST elevation myocardial infarction (STEMI) Acute pulmonary edema (CMS/HCC) Acute hypoxemic respiratory failure (CMS/HCC) Lactic acidosis Laboratory test Patient receiving extracorporeal membrane oxygenation (ECMO) Diabetes mellitus S/P coronary artery stent placement Ventricular tachycardia (CMS/HCC) AV block Acute diastolic heart failure Subjective: 24 hour events - as above Objective: Current vital signs Blood pressure 100/65, pulse 65, temperature 99.5 ??F (37.5 ??C), temperature source Axillary, resp. rate 20, height 5' 8 (1.727 m), weight 94 kg (207 lb 3.7 oz), SpO2 95%. 24 hour BP and temperature range BP: (77-113)/(47-72) Temp (24hrs), Av.4 ??F (37.4 ??C), Min:98.4 ??F (36.9 ??C), Max:100.3 ??F (37.9 ??C) Input/Output 06/19 1900 - 06/21 0659 In: 2745.2 [I.V.:2065.2] Out: 4125 [Urine:3175; Drains:950] PHYSICAL EXAM: General: Agitated Neuro: verbal, but does not answer orientation questions. Moving all extremities. Cardiac: RRR Pulm: Coarse Abdomen: Soft Extremities: Warm Data Review: BMP: Recent Labs 06/19/25 0408 06/20/25 0318 06/21/25 0302 GLUCOSE 104* 120* 148* BUN 22 20 23 CREAT 0.66* 0.67 0.72 NA 142 145 144 K 3.4* 3.3* 3.5 CL 106 105 106 CO2 27 27 29 ANIONGAP 9 13 9 MG 2.3 2.2 2.3 PO4 1.6* 3.1 3.2 estimated creatinine clearance is 115.2 mL/min (by C-G formula based on SCr of 0.72 mg/dL). LFTs: Recent Labs 06/19/25 0408 06/20/25 0318 06/21/25 0302 ALKPHOS 135* 135* 120 ALT 26 25 21 AST 22 24 21 BILITOTAL 0.5 0.8 0.6 ALBUMIN 2.9* 3.0* 3.0* CBC: Recent Labs 06/19/25 0408 06/20/25 0318 06/21/25 0302 WBC 9.7 12.4* 12.1* HGB 10.7* 9.4* 9.1* HCT 32.6* 28.3* 27.4* PLT 134* 240 302 MCV 95.6 95.0 94.8 Coagulation: Recent Labs 06/18/25 1702 06/19/25 0102 06/20/25 031 APTT 52.9* 57.5* 27.4 ABG: Lab Results Component Value Date/Time SPECIMENSOU Arterial 06/18/2025 07:15 AM SPECIMENSOU Arterial 06/18/2025 07:15 AM PHBLOODPOC 7.45 06/18/2025 07:15 AM [id number] 35 06/18/2025 07:15 AM PO2POC 131 (H) 06/18/2025 07:15 AM GHR6PLZ 24 06/18/2025 07:15 AM O4YPPHTP 99 (H) 06/18/2025 07:15 AM PHA4AKB 25 06/18/2025 07:15 AM BEPOC 0 06/18/2025 07:15 AM LACTATE 0.8 06/18/2025 07:15 AM PATIENTTEMP 37.0 06/18/2025 07:15 AM PHTEMPCORR 7.45 06/18/2025 07:15 AM [id number] 35 06/18/2025 07:15 AM [id number] 131 (H) 06/18/2025 07:15 AM Lactic acid: Lab Results Component Value Date/Time LACTATE 0.8 06/18/2025 07:15 AM LACTATE 0.9 06/17/2025 11:01 PM LACTATE 0.7 06/17/2025 05:19 PM LACTATE 11.5 (HH) 06/12/2025 05:42 AM Radiology: Relevant imaging reviewed Assessment and Plan Neuro/Psych: Acute metabolic encephalopathy in the setting of cardiac arrest and critical illness - Agitation is difficult to control - Continue precedex, wean ketamine GTT -continue Geodon, start Seroquel. Start clonazepam. Daily phototypesetting equipment monitor QTC - Continue clinical hold, sitter Cardiovascular/Fluids: Inferior STEMI s/p AMBER to the RCA Refractory VT Cardiogenic shock with IABP and requiring mechanical circulatory support with peripheral VA ECMO Acute in-stent thrombosis of the RCA s/p balloon angioplasty Having intermittent 2-1 block which is somewhat obscured by artifact on telemetry as well as presence of PACs. He did have complete heart block at his presentation and continues to require IV amiodarone given his history of incessant VT. For time being, will continue IV amiodarone due to incessantvt. He is not on any other AV damian blockade agents. -Obtain twelve-lead ECG. EP evaluation for this. - Repeat TTE on 06/16 with EF 45% - Liberated from VA ECMO on 06/17 - IABP explanted 06/19 - Remains off ionotropes and pressors. Hemodynamics stable - Continue DAPT. Heparin gtt discontinued 06/19 - Continue statin - Trend electrolytes. Keep magnesium greater than 2 and K greater than 4 Pulmonary: Acute hypoxic respiratory failure-multifactorial in etiology secondary to acute infectious process plus pulmonary edema - Extubated 06/19 - Poor secretion management due to agitation. High risk for needing reintubation GI/NUT: Ileus -BM on 06/18 after starting relistor -- no one bowel regimen -Resume trickle feeds SUP, Pepcid discontinued after extubation on 06/19 Renal/LYTES/Acid-Base: GÉNESIS - resolved - Monitor urine output - Trend electrolytes - Diuresis Infectious Disease: Streptococcal pneumonia, H. influenzae pneumonia -Completed meropenem and vancomycin for 72 hours in the setting of semisterile procedure -Narrowed to CTX on 06/15 -- seven days of antibiotic New fever on 06/18 - Culture negative - No recurrence of fever - Hold abx Hem/Onc/Coag: DVTp, heparin gtt discontinued 06/19. SQ heparin started 06/20 Endocrine: Diabetes, new dx, likely type 2 -HbA1C - 6.3 -Continue current insulin regimen -Keep BG 120-180 Musculoskeletal/Skin: Routine ICU care Family communication: Ongoing updates Critical care time: 40 min * Rosa Martins, RD - 06/21/2025 10:51 AM CDT Nutritional Status/Recommendations/Plan for Follow up: TF resumed at 10mL/hr. Goal is in place when ready to advance. Estimated Needs: Estimated Energy Target: 1801-3303 (06/14/25 0900) Estimated Protein Target: 105-140 (06/14/25 09) Estimated Fluid Target : 1750 (06/14/25 09) Nutrition Energy Formula: Calories per kilogram (06/14/25 09) Weight Used for Formula: [place] weight (06/14/25899) Current diet/nutrition support: DIET TUBE FEEDING Elemental 1.2,; No,; Orogastric/Nasogastric; Feeding Method: Continuous; Initial Volume in mL/hour: 20; Goal Volume in mL/hour: 60; Feeding Advancement: 10mL q6h Food/Meal: Tube feeding (06/21/25 0700), Weight status/changes: Height: 5' 8 (172.7 cm) (06/17/25 0614) Weight: 94 kg (207 lb 3.7 oz) (06/21/25 0300) Last seven weights (if available) from 05/24/25 1052 to 06/21/25 1051 (Last 7 readings): Weight Weight Method 06/21/25 0300 94 kg (207 lb 3.7 oz) Actual 06/20/25 0300 93.1 kg (205 lb 4 oz) Actual 06/19/25 0400 98.5 kg (217 lb 2.5 oz) -- 06/18/25 0454 99.9 kg (220 lb 3.8 oz) Actual 06/17/25 0614 107.6 kg (237 lb 3.4 oz) Actual 06/17/25 0300 107.6 kg (237 lb 3.4 oz) Actual 06/16/25 0300 107.1 kg (236 lb 1.8 oz) Actual 06/14/25 0300 105.3 kg (232 lb 2.3 oz) Actual Admission:Weight: 107.4 kg (236 lb 12.4 oz) (06/13/25599)Weight Method: Actual (06/13/25599) Body mass index is 31.51 kg/m??. [place] body weight: 68.4 kg (150 lb 12.7 oz) Adjusted ideal body weight: 78.6 kg (173 lb 5.9 oz) Nutrition Focused Exam Physical Findings- Summary: Malnutrition Nutrition Diagnosis: (at risk) (06/14/25899) Subcutaneous Fat Loss Assessment: No findings (06/14/25899) Muscle Wasting Assessment: No findings (06/14/25899) Edema: Normal contour with a barely perceptible pit (no findings) (06/14/25899) Hand Refrigeration Engine Operator: Unable to assess (sedated) (06/14/25899) Percentage of Energy: Other (see comments) (meeting <50% estimated needs ~2 days) (06/14/25899) Percentage of Weight Loss: No history of significant wt loss (06/14/25899) Additional assessment indices: Evaristo Score: 14 (06/21/25 0700) Last Bowel Movement (mm/dd/yyyy): 06/19/25 (06/19/25 1530) Stool Consistency - Reference [place] Stool Chart: liquid - (type 7) (06/19/25 1530) Bowel Sounds: All Quadrants: (audible & active x4) (06/21/25 0300) Allergies No Known Allergies Labs: Lab Results Component Value Date/Time NA 144 06/21/2025 03:02 AM K 3.5 06/21/2025 03:02 AM CL 106 06/21/2025 03:02 AM CO2 29 06/21/2025 03:02 AM CA 8.4 (L) 06/21/2025 03:02 AM BUN 23 06/21/2025 03:02 AM CREAT 0.72 06/21/2025 03:02 AM GLUCOSE 148 (H) 06/21/2025 03:02 AM TOTALPROTEIN 6.0 (L) 06/21/2025 03:02 AM ALBUMIN 3.0 (L) 06/21/2025 03:02 AM BILITOTAL 0.6 06/21/2025 03:02 AM ALKPHOS 120 06/21/2025 03:02 AM AST 21 06/21/2025 03:02 AM ALT 21 06/21/2025 03:02 AM ANIONGAP 9 06/21/2025 03:02 AM Lab Results Component Value Date/Time HGBA1C 6.3 (H) 06/14/2025 03:08 AM Lab Results Component Value Date/Time RDW 13.3 06/21/2025 03:02 AM No results found for: CRP , CRPHS Lab Results Component Value Date/Time MG 2.3 06/21/2025 03:02 AM Lab Results Component Value Date/Time CA 8.4 (L) 06/21/2025 03:02 AM PO4 3.2 06/21/2025 03:02 AM No results found for: QMTC072 , VITD25 , RUKB74IQJ9 , HWOI28UBN3 , WSXC84PNPV , PEZL6SUPYENK , AMGQ0JHFWEFD , VITAMINDTO , QKYHVZL113 No results found for: GBFXKRJS95 No results found for: FOLATE , FOLATERBC No results found for: ZINC * Luisa Ya RN - 06/21/2025 9:38 AM CDT Cardiopulmonary Rehab completed NC/PCI/CHF Education with patient and spouse. Patient unable to participate due to cognitive state, spouse Abi available for educations. Spouse was receptive to the education and verbalized understanding. Referral was made to Outpatient Cardiopulmonary Rehab at [place]. Patient was provided with contact information for the referral location. Total Time Spent with the Patient: 20 minutes. Units Charged: 1 Learners: Patient and Family Readiness: Acceptance Teaching Points Response Understanding Heart Failure Verbalizes Understanding Heart Failure Medication Management Importance of Taking as Prescribed Side Effects Preferred Pharmacy: [facility] [address] Verbalizes Understanding Diet and Nutrition Prescribed Diet Incorporating Healthy Eating Habits Reading and Understanding Nutrition Labels Managing Sodium Intake Managing Fluid Intake Verbalizes Understanding Symptom Management Self-Monitoring & Symptom Tracking Shortness of Breath Fatigue/Tiredness Swelling/Edema Weight Gain Blood Pressure Rapid or Irregular Heartbeat Mental Fatigue/Depression Verbalizes Understanding Physical Activity Exercise Rest Daily Goal(s) Verbalizes Understanding Smoking Cessation (if applicable) Tobacco Marijuana Vaping Quitting Resources Verbalizes Understanding Alcohol and Caffeine Consumption and Moderation Effects on Heart and Health Verbalizes Understanding Stress Management Awareness Reduction Strategies Verbalizes Understanding Sleep Sleep Schedule and Routine Verbalizes Understanding Physician/Provider Follow Up Appointment Importance of Keeping All Appointments Ongoing Monitoring and Early Identification of Issues Verbalizes Understanding Primary Care Provider Name: Customer Care Manager Name: No primary care provider on file. No care steam tender to display Health Related Social Needs Impacting Care None Identified Consults and Referrals Identified: Cardiac Rehab Comments: Utilized Teach Back to assess patient and /or family understanding when discussing and/or providing written material containing the following information: S/S CHF and when to recognize and report worsening S/S to physician to include: Increased shortnessof breath, decline in activity, increased swelling of feet/waist, dry hacky cough/pink tinged sputum, decreased appetite, inability to lie in usual sleep pattern, weight gain of 3 pounds or more in aday or 5 pounds or more in 2 or more days (as outlined in provided written material). Heart Failure Management --rationale for daily weights, BP, 1500 mg low sodium diet, medication compliance, activity guidelines (emphasizing low level progressive return to exercise, pacing activities, alternating activity with rest, and plan activities at least 2 hours after meals or before eating)and recommendations for no more than 2 quarts daily; 64 ounces of fluid intake, or as directed by physician. Signs/symptoms of a myocardial infarction vs angina Controllable risk factors for cardiovascular disease Activity/Exercise guidelines Medications including SL NTG use ???Heart Healthy diet to include instructions (as provided in written information). Patient was informed of outpatient resources for additional nutrition education as appropriate to diagnosis (cardiopulmonary outpatient referral, outpatient diabetes education [facility] dietitian). Tobacco cessation, harmful effects of tobacco, benefits of quitting tobacco use, health risks of ongoing tobacco use, positive alternatives to nicotine, tips on coping with withdrawal symptoms, managing relapse, methods of quitting tobacco use, resource programs for tobacco cessation. Written material provided: Stent card provided Exercise Guidelines: 6-week progression NTG Fact Sheet Heart Failure Fact Sheet and Action Plan Building A Healthy Plate?? source: National Lipid Association ???The Newest Nutrition Recommendations to Prevent Heart Disease?? source: National Lipid Association [facility] information provided: Angina PCI: General Information Cardiac Rehabilitation: General Information Heart Failure: Restricting Fluids Low Sodium: Reading a Food Label Referral to Outpatient Cardiac Rehab - Yes: Location: [facility] * Prince Farr MD - 06/21/2025 7:28 AM CDT Cardiology Progress Note Patient: Isaac Franklin / 65 y.o. / male : 1960 Today's Date: 06/21/2025 SUBJECTIVE: Mr. Franklin reports mechanical soreness of chest wall. Otherwise no other chest pain, dyspnea, palpitations, syncope, orthopnea, edema, or paroxysmal nocturnal dyspnea. He has had previous agitation which has improved per nursing report. Current medicines reviewed. Chart reviewed. Recent Cardiac Testing: OBJECTIVE: BP 100/65 Pulse 65 Temp 99.5 ??F (37.5 ??C) (Axillary) Resp 20 Ht 5' 8 (1.727 m) Wt 94 kg (207 lb 3.7 oz) SpO2 95% BMI 31.51 kg/m?? The range of BP in the last 24 hours is:BP: (77-124)/(47-79) Intake/Output Summary (Last 24 hours) at 06/21/2025 0755 Last data filed at 06/21/2025 0741 Gross per 24 hour Intake 2770.49 ml Output 2625 ml Net 145.49 ml General appearance: no acute distress Neck: borderline jugular venous distension Lungs: Diffuse bibasilar crackles. Heart: S1 and S2 normal. 2/6 systolic murmur present. Abdomen: soft and non-tender. Extremities: no edema Data Review: Laboratory & imaging data reviewed CBC: Recent Labs 06/19/25 0408 06/20/25 0318 06/21/25 0302 WBC 9.7 12.4* 12.1* HGB 10.7* 9.4* 9.1* PLT 134* 240 302 BMP: Recent Labs 06/18/25 1702 06/19/25 0408 06/20/25 0318 06/21/25 0302 GLUCOSE -- 104* 120* 148* BUN -- 22 20 23 CREAT -- 0.66* 0.67 0.72 NA -- 142 145 144 K 3.4* 3.4* 3.3* 3.5 CO2 -- 27 29 MG -- 2.3 2.2 2.3 TROPONIN T, BASELINE 5TH GEN Date Value Ref Range Status 06/11/2025 6 <=15 ng/L Final Cardiac telemetry monitoring: sinus rhythm with rate 50-60s. Intermittent PACs present with occasional of 2:1 second degree AV block. ASSESSMENT: Principal Problem: ST elevation myocardial infarction involving right coronary artery Active Problems: Cardiogenic shock (CMS/HCC) Complete heart block (CMS/HCC) Cardiac arrest with ventricular fibrillation (CMS/HCC) CHB (complete heart block) ST elevation myocardial infarction (STEMI) Acute pulmonary edema (CMS/HCC) Acute hypoxemic respiratory failure (CMS/HCC) Lactic acidosis Laboratory test Patient receiving extracorporeal membrane oxygenation (ECMO) Diabetes mellitus 65-year-old male who initially presented to an outside hospital with inferior STEMI, had V-fib arrest requiring defibrillation and cardiopulmonary resuscitation. He received 2 rounds of CPR. He was intubated, sedated and transferred here. He underwent primary PCI of right coronary artery. On his EMS electrocardiogram, he was noted to have complete heart block and a temporary pacemaker was placed which was also kept in place for overdrive pacing if needed. Additionally, for borderline hemodynamics in the Intramural Director, intra-aortic balloon pump was placed. Post PCI, he had incessant VT. This required prolonged cardiopulmonary resuscitation with multiple defibrillations, lidocaine, amiodarone as well as electrolyte supplementation. He was very unstable and required VA ECMO support. He was subsequently noted to have EKG changes. He underwent repeat angiogram which showed acute to subacute in-stent thrombosis which was treated balloon angioplasty under IVUS guidance. Over preceding week, he has been weaned off inotropes/vasopressors, lidocaine, VA ECMO, IABP, temporary pacemaker. His LVEF transiently decreased to 25%. Most recently 45%. 06/21-he continues to be off any mechanical or inotropic support. He is off lidocaine. He continuesto be in amiodarone drip. He has an NG tube for feeds where trickle feeds have been recently started. His telemetry shows occasional PACs with baseline artifact. There also appears to be occasions of 2-1 AV conduction block. Incessant VT Initially treated with VA ECMO support, IV lidocaine, IV amiodarone. Currently on IV amiodarone. Acute hypoxic respiratory failure Acute diastolic heart failure Acute encephalopathy. Currently on ketamine and Precedex. Cardiogenic shock Resolved Treated with VA ECMO, balloon pump, inotropic and vasopressor support. Off the supports now. STEMI Status post primary PCI of proximal to mid right coronary artery Acute to subacute instent thrombosis Status post balloon angioplasty PLAN: He is currently having intermittent 2-1 block which is somewhat obscured by artifact on telemetry as well as presence of PACs. He did have complete heart block at his presentation and continues to require IV amiodarone given his history of incessant VT. For time being, I will leave him on IV amiodarone. He is not on any other AV damian blockade agents. Obtain twelve-lead ECG. Ordered. I will also obtain an EP evaluation for this. Continue IV Lasix with 40 mg twice daily and close monitoring of renal function and electrolytes. Maintain K>4-5 and Mg>2. Continue dual antiplatelet therapy with aspirin 81 mg daily and ticagrelor 90 mg twice daily Continue high intensity statin with Crestor 20 mg daily. He has had low normal blood pressure. We will reevaluate for introduction of guideline directed medical therapy as permissible. Evaluation/management of other/noncardiac problems per primary team. The risks, benefits and alternative of the above management were discussed with patient and/or family. All questions were answered and with shared decision making model, above management options are being implemented. Further management based on follow-up. Prince Yordan MD Interventional and Structural Customer Care Manager * Tena Su DO - 06/20/2025 9:30 AM CDT DAILY PROGRESS NOTE CARDIOLOGY 06/20/2025 Isaac Franklin is a 65 y.o. male with cardiac arrest, inferior NC s/p PCI to RCA, subacute stent thrombosis, ECMO, Vfib arrest. IABP removed yesterday. EF 45% SUBJECTIVE: Not on any pressors, amio IV bc has not passed swallow study Still confused and restless OBJECTIVE: BP 100/68 Pulse 76 Temp 97.3 ??F (36.3 ??C) (Axillary) Resp 22 Ht 5' 8 (1.727 m) Wt 93.1 kg (205 lb 4 oz) SpO2 96% BMI 31.21 kg/m?? Intake/Output Summary (Last 24 hours) at 06/20/2025 0930 Last data filed at 06/20/2025 0920 Gross per 24 hour Intake 1708.62 ml Output 3951 ml Net -2242.38 ml Gen: Alert, NAD Heart: Nml S1, S2 Lungs: decreased Abdomen: ab somewhat distended, soft, +BS Extremities: No edema, pulses palpable. Lab Results Component Value Date WBC 12.4 (H) 06/20/2025 HGB 9.4 (L) 06/20/2025 HGBPOC 9.6 (L) 06/18/2025 HCT 28.3 (L) 06/20/2025 HCTPOC 29 (L) 06/18/2025 PLT 240 06/20/2025 MCV 95.0 06/20/2025 Lab Results Component Value Date NA 145 06/20/2025 K 3.3 (L) 06/20/2025 CL 105 06/20/2025 CO2 27 06/20/2025 CA 8.4 (L) 06/20/2025 BUN 20 06/20/2025 CREAT 0.67 06/20/2025 GLUCOSE 120 (H) 06/20/2025 ANIONGAP 13 06/20/2025 No results found for: CPK , CKMB , TROPONIN , TROPONIINT , TROPINTR ASSESSMENT and PLAN: Patient Active Hospital Problem List: ST elevation myocardial infarction involving right coronary artery Date Noted: 06/12/2025 DAPT- brilinta, ASA Cardiogenic shock (CMS/HCC) Date Noted: 06/12/2025 Complete heart block (CMS/HCC) Date Noted: 06/12/2025 Cardiac arrest with ventricular fibrillation (CMS/HCC) Date Noted: 06/12/2025 Change to po amio once passes swallow study. Try to maintain K>4, Mg >2 CHB (complete heart block) Date Noted: 06/12/2025 Ischemic cardiomyopathy- adding GDMT as BP and renal function tolerate Acute HFmrEF- daily weights, I/O. Lasix IV today Acute pulmonary edema (CMS/HCC) Date Noted: 06/12/2025 Acute hypoxemic respiratory failure (CMS/HCC) Date Noted: 06/12/2025 Lactic acidosis Date Noted: 06/12/2025 Laboratory test Date Noted: 06/13/2025 Patient receiving extracorporeal membrane oxygenation (ECMO) Date Noted: 06/13/2025 Diabetes mellitus Date Noted: 06/16/2025 Encephalopathy Tena Su DO 9:30 AM * Karlie Hamilton MD - 06/20/2025 8:23 AM CDT CRITICAL CARE MEDICINE DAILY PROGRESS NOTE PCP: No primary care provider on file. Hx: Isaac Franklin is a 65 y.o. male admitted 06/12/2025 after presenting to an outside ED with a chief complaint of chest pain. Past medical history is limited (ED documentation states patient denied medical problems) but patient is a known tobacco user. On the day prior to admission the patient presented to [facility] with a chief complaint of chest pain which started approximately 2 days prior to presentation and had progressively worsened. The patient noted associated nausea and denies radiation. While awaiting further evaluation at the OSH the patient sustained a VF arrest which was treated with ACLS and achieved ROSC after 2 rounds of resuscitation. EKG revealed inferior ST elevation and lateral ST depression. 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 LHC revealed 100% thrombus of the proximal RCA which was managed with AMBER. The patient warranted IABP for support and was transferred to ICU. Upon arrival to ICU the patient experienced VF arrest. ACLS was initiated. ROSC was intermittently achieved multiple times during resuscitative efforts but the patient continued to return to VF. The decision wasmade to cannulate for ECMO. This was completed and the patient was placed on VA ECMO Pertinent PMHx: Past Medical History: Diagnosis Date Patient denies medical problems Current Care Plan Summary: 65-year-old male admitted to the ICU on 06/12/2025 with inferior STEMI, VF arrest, cardiogenic shock s/p left heart cath with AMBER to the RCA and placement of IABP further complicated by development of refractory VT requiring emergent bedside VA cannulation on 06/12 On 06/13, EKG showed worsening ST elevations and he was taken back to the Intramural Director and found to have acute in-stent thrombosis of the RCA with 100% occlusion now s/p IVUS guided balloon angioplasty and successful removal and reinsertion of IABP There was concern for poor absorption of DAPT and he was started on Aggrastat gtt.for 18 hours Off pressors and ionotropes since 06/14 Liberated from VA ECMO on 06/17 IABP explanted and extubated 06/19 Heparin gtt discontinued 06/19 Hemodynamics are stable TTE on 06/16 with improved EF to 45% Continue diuresis. Renal function remains stable LFTs have normalized No recurrence of VT. Continue amiodarone gtt. Lidocaine gtt discontinued 06/14 Ongoing issues with agitation, now on precedex and ketamine gtt Has been on high dose seroquel without effect. DC seroquel, start geodon BID Continue precedex and ketamine. Will wean as tolerated Continue clinical hold, sitter at bedside Respiratory status is stable. He has a strong cough but is not clearing his secretions Close monitoring of respiratory status in the ICU. At high risk for reintubation Encourage aerobika use when less agitated ICU timeline: 06/12: Admitted to the ICU, cardiac arrest, eCPR with pVA cannulation 06/13: Return to the Intramural Director for acute in-stent thrombosis of the RCA s/p angioplasty 06/16: ECMO flows decreased to 2-2.5L 06/17: Liberated from VA ECMO 06/19: Extubated, IABP explanted Major active problem list: Principal Problem: ST elevation myocardial infarction involving right coronary artery Active Problems: Cardiogenic shock (CMS/HCC) Complete heart block (CMS/HCC) Cardiac arrest with ventricular fibrillation (CMS/HCC) CHB (complete heart block) ST elevation myocardial infarction (STEMI) Acute pulmonary edema (CMS/HCC) Acute hypoxemic respiratory failure (CMS/HCC) Lactic acidosis Laboratory test Patient receiving extracorporeal membrane oxygenation (ECMO) Diabetes mellitus Subjective: 24 hour events - as above Objective: Current vital signs Blood pressure 100/54, pulse 67, temperature 97.3 ??F (36.3 ??C), temperature source Axillary, resp. rate 20, height 5' 8 (1.727 m), weight 93.1 kg (205 lb 4 oz), SpO2 94%. 24 hour BP and temperature range BP: (85-138)/(44-91) Temp (24hrs), Av.2 ??F (36.8 ??C), Min:97.3 ??F (36.3 ??C), Max:99.1 ??F (37.3 ??C) Input/Output 06/180 - 06/20 0659 In: 2110.3 [I.V.:1720.3] Out: 4456 [Urine:3755; Drains:700] PHYSICAL EXAM: General: Agitated Neuro: Does not answer orientation questions. Moving all extremities. Cardiac: RRR Pulm: Coarse Abdomen: Soft Extremities: Warm Data Review: BMP: Recent Labs 06/18/2533506/18/25170106/19/2540706/20/25317 GLUCOSE 129* -- 104* 120* BUN 21 -- 22 20 CREAT 0.68 -- 0.66* 0.67 NA 142 -- 142 145 K 4.3 3.4* 3.4* 3.3* CL 108* -- 106 105 CO2 23 -- 27 27 ANIONGAP 11 -- 9 13 MG 2.2 -- 2.3 2.2 PO4 3.2 -- 1.6* 3.1 estimated creatinine clearance is 123.4 mL/min (by C-G formula based on SCr of 0.67 mg/dL). LFTs: Recent Labs 06/18/2533506/19/2540706/20/25317 ALKPHOS 176* 135* 135* ALT 38 26 25 AST 36 22 24 BILITOTAL 0.6 0.5 0.8 ALBUMIN 3.0* 2.9* 3.0* CBC: Recent Labs 06/18/2533506/19/2540706/20/25317 WBC 10.9* 9.7 12.4* HGB 11.6* 10.7* 9.4* HCT 35.4* 32.6* 28.3* PLT 101* 134* 240 MCV 95.2 95.6 95.0 Coagulation: Recent Labs 06/18/25170106/19/25 0102 06/20/25317 APTT 52.9* 57.5* 27.4 ABG: Lab Results Component Value Date/Time SPECIMENSOU Arterial 06/18/2025 07:15 AM SPECIMENSOU Arterial 06/18/2025 07:15 AM PHBLOODPOC 7.45 06/18/2025 07:15 AM WPO2ORM 35 06/18/2025 07:15 AM PO2POC 131 (H) 06/18/2025 07:15 AM GSE9EGF 24 06/18/2025 07:15 AM [id number] 99 (H) 06/18/2025 07:15 AM CSO2KMW 25 06/18/2025 07:15 AM BEPOC 0 06/18/2025 07:15 AM LACTATE 0.8 06/18/2025 07:15 AM PATIENTTEMP 37.0 06/18/2025 07:15 AM PHTEMPCORR 7.45 06/18/2025 07:15 AM [id number] 35 06/18/2025 07:15 AM [id number] 131 (H) 06/18/2025 07:15 AM Lactic acid: Lab Results Component Value Date/Time LACTATE 0.8 06/18/2025 07:15 AM LACTATE 0.9 06/17/2025 11:01 PM LACTATE 0.7 06/17/2025 05:19 PM LACTATE 11.5 (HH) 06/12/2025 05:42 AM Radiology: Relevant imaging reviewed Assessment and Plan Neuro/Psych: Acute metabolic encephalopathy in the setting of cardiac arrest and critical illness - Agitation is difficult to control - Continue precedex and ketamine gtt - Stop seroquel. Start geodon - Continue clinical hold, sitter Cardiovascular/Fluids: Inferior STEMI s/p AMBER to the RCA Refractory VT Cardiogenic shock with IABP and requiring mechanical circulatory support with peripheral VA ECMO Acute in-stent thrombosis of the RCA s/p balloon angioplasty - Repeat TTE on 06/16 with EF 45% - Liberated from VA ECMO on 06/17 - IABP explanted 06/19 - Remains off ionotropes and pressors. Hemodynamics stable - Continue DAPT. Heparin gtt discontinued 06/19 - Continue statin - No recurrence of VT. Continue amiodarone gtt. - Trend electrolytes. Keep magnesium greater than 2 and K greater than 4 Pulmonary: Acute hypoxic respiratory failure-multifactorial in etiology secondary to acute infectious process plus pulmonary edema - Extubated 06/19 - Poor secretion management due to agitation. High risk for needing reintubation GI/NUT: Ileus -BM on 06/18 after starting relistor -Resume trickle feeds SUP, Pepcid discontinued after extubation on 06/19 Renal/LYTES/Acid-Base: GÉNESIS - resolved - Monitor urine output - Trend electrolytes - Diuresis Infectious Disease: Streptococcal pneumonia, H. influenzae pneumonia -Completed meropenem and vancomycin for 72 hours in the setting of semisterile procedure -Narrowed to CTX on 06/15 and completed a total of 5 days of antibiotics New fever on 06/18 - Send sputum culture, pneumonia pathogen PCR - Culture negative - No recurrence of fever - Hold abx Hem/Onc/Coag: DVTp, heparin gtt discontinued 06/19. SQ heparin started 06/20 Endocrine: Diabetes, new dx, likely type 2 -HbA1C - 6.3 -Continue current insulin regimen -Keep BG 120-180 Musculoskeletal/Skin: Routine ICU care Family communication: Ongoing updates Critical care time: 40 min * Dede Yee RN - 06/19/2025 7:29 PM CDT Patient extubated around 1030 today and following commands but slightly confused. Pt became more and more confused and intermittently combative while trying to get out of bed multiple times. A sitterwas brought into the room for safety around 1500. Around 1630 sitter stepped away, pt tried gettingout of bed so this nurse came to bedside. Tried to redirect patient by turning TV on which helped for 2-3 minutes before patient said he was getting out of here and quickly climbed over the opposite side of the bed. I held him onto the bed with my arms and yelled for assistance where 8 staff members came to bedside immediately. Patient was put back into bed and given medication for relaxation. Patient nor any of my coworkers were harmed. Restraints placed on patient. * Robinson Diego - 06/19/2025 6:37 PM CDT Reason for Visit: (P) Crisis (JACQUELINE) Patient spiritual issues identified summary of patient???s most significant issue(s): Isaac was becoming increasingly aggressive toward staff but is now more calm as staff is tending to him at the moment. Staff expresses appreciationfor the support from Spiritual Care. Spiritual interventions Provided supportive presence for Isaac and staff. (P) Spiritual support provided ADMINISTRATIVE PERSONAL ASSISTANT???S ASSESSMENT OF PATIENT???S LEVEL OF DISTRESS: Mild Outcomes of Care No immediate spiritual/emotional needs identified. Goals of Spiritual Care Resident Care Manager Plan Spiritual Care Services remain available for referral PRN. Recommendations for Healthcare Team As spiritual needs/distress arise, please contact Spiritual Care Services. We will follow up as needed. Thank you for this referral. Resident Care Manager Robinson Diego Spiritual Care Team [phone] * Aaron Carr MD - 06/19/2025 4:39 PM CDT Cardiology note Intra-aortic balloon pump and temporary transvenous pacing catheter and sheath were removed, manualpressure applied for hemostasis. No significant blood loss, tolerated well. Bedrest x 4 hours. Aaron Carr MD * Karlie Hamilton MD - 06/19/2025 11:28 AM CDT CRITICAL CARE MEDICINE DAILY PROGRESS NOTE PCP: No primary care provider on file. Hx: Isaac Franklin is a 65 y.o. male admitted 06/12/2025 after presenting to an outside ED with a chief complaint of chest pain. Past medical history is limited (ED documentation states patient denied medical problems) but patient is a known tobacco user. On the day prior to admission the patient presented to [facility] with a chief complaint of chest pain which started approximately 2 days prior to presentation and had progressively worsened. The patient noted associated nausea and denies radiation. While awaiting further evaluation at the OSH the patient sustained a VF arrest which was treated with ACLS and achieved ROSC after 2 rounds of resuscitation. EKG revealed inferior ST elevation and lateral ST depression. 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 LHC revealed 100% thrombus of the proximal RCA which was managed with AMBER. The patient warranted IABP for support and was transferred to ICU. Upon arrival to ICU the patient experienced VF arrest. ACLS was initiated. ROSC was intermittently achieved multiple times during resuscitative efforts but the patient continued to return to VF. The decision wasmade to cannulate for ECMO. This was completed and the patient was placed on VA ECMO Pertinent PMHx: Past Medical History: Diagnosis Date Patient denies medical problems Current Care Plan Summary: 65-year-old male admitted to the ICU on 06/12/2025 with inferior STEMI, VF arrest, cardiogenic shock s/p left heart cath with AMBER to the RCA and placement of IABP further complicated by development of refractory VT requiring emergent bedside VA cannulation on 06/12 On 06/13, EKG showed worsening ST elevations and he was taken back to the [facility]am[facility] Director and found to have acute in-stent thrombosis of the RCA with 100% occlusion now s/p IVUS guided balloon angioplasty and successful removal and reinsertion of IABP There was concern for poor absorption of DAPT and he was started on Aggrastat gtt.for 18 hours Off pressors and ionotropes since 06/14 Liberated from VA ECMO on 06/17 Hemodynamics remain stable Weaning IABP Continue aspirin, Brilinta Continue heparin gtt TTE on 06/16 with improved EF to 45% Continue diuresis Renal function remains stable LFTs are downtrending No recurrence of VT. Continue amiodarone gtt. Lidocaine gtt discontinued 06/14 SAT/ SBT and will assess for extubation today Continue Seroquel 3 times daily for agitation. Will start weaning on IABP out Febrile on 06/18 Sputum culture negative No recurrence of fever Has completed 5 days of abx. Hold off on restarting now Suspected ileus Last BM on 06/18 after starting relistor Continue bowel regimen Resume trickle feeds today ICU timeline: 06/12: Admitted to the ICU, cardiac arrest, eCPR with pVA cannulation 06/13: Return to the Intramural Director for acute in-stent thrombosis of the RCA s/p angioplasty 06/16: ECMO flows decreased to 2-2.5L 06/17: Liberated from VA ECMO Major active problem list: Principal Problem: ST elevation myocardial infarction involving right coronary artery Active Problems: Cardiogenic shock (CMS/HCC) Complete heart block (CMS/HCC) Cardiac arrest with ventricular fibrillation (CMS/HCC) CHB (complete heart block) ST elevation myocardial infarction (STEMI) Acute pulmonary edema (CMS/HCC) Acute hypoxemic respiratory failure (CMS/HCC) Lactic acidosis Laboratory test Patient receiving extracorporeal membrane oxygenation (ECMO) Diabetes mellitus Subjective: 24 hour events - as above Objective: Current vital signs Blood pressure 126/75, pulse 91, temperature 99.4 ??F (37.4 ??C), temperature source Core, resp. rate 29, height 5' 8 (1.727 m), weight 98.5 kg (217 lb 2.5 oz), SpO2 95%. 24 hour BP and temperature range BP: (97-126)/(53-75) Temp (24hrs), Av.6 ??F (37.6 ??C), Min:99.1 ??F (37.3 ??C), Max:100.3 ??F (37.9 ??C) Input/Output 06/17 1900 - 06/19 0659 In: 1674.3 [I.V.:1524.3] Out: 4170 [Urine:3470; Drains:700] PHYSICAL EXAM: General: Synchronous with the vent Neuro: Following commands with repeated prompting Cardiac: RRR Pulm: Coarse Abdomen: Soft Extremities: Warm Data Review: BMP: Recent Labs 06/17/25 0314 06/17/25 1720 06/18/25 0336 06/18/25 1702 06/19/25 0408 GLUCOSE 171* 146* 129* -- 104* BUN 27* 23 21 -- 22 CREAT 0.68 0.70 0.68 -- 0.66* NA 141 141 142 -- 142 K 3.8 3.4* 4.3 3.4* 3.4* CL 108* 106 108* -- 106 CO2 22 23 23 -- 27 ANIONGAP 11 12 11 -- 9 MG 2.2 -- 2.2 -- 2.3 PO4 2.7 -- 3.2 -- 1.6* estimated creatinine clearance is 128.6 mL/min (A) (by C-G formula based on SCr of 0.66 mg/dL (L)). LFTs: Recent Labs 06/17/25 0314 06/18/25 0336 06/19/25 0408 ALKPHOS 145* 176* 135* ALT 42 38 26 AST 41 36 22 BILITOTAL 0.5 0.6 0.5 ALBUMIN 2.9* 3.0* 2.9* CBC: Recent Labs 06/17/25 0314 06/18/25 0336 06/19/25 0408 WBC 11.1* 10.9* 9.7 HGB 8.5* 11.6* 10.7* HCT 26.3* 35.4* 32.6* PLT 96* 101* 134* MCV 96.3 95.2 95.6 Coagulation: Recent Labs 06/18/25 0854 06/18/25 1702 06/19/25 0102 APTT 44.5* 52.9* 57.5* ABG: Lab Results Component Value Date/Time SPECIMENSOU Arterial 06/18/2025 07:15 AM SPECIMENSOU Arterial 06/18/2025 07:15 AM PHBLOODPOC 7.45 06/18/2025 07:15 AM PIR0JGC 35 06/18/2025 07:15 AM PO2POC 131 (H) 06/18/2025 07:15 AM SOF2LXE 24 06/18/2025 07:15 AM G2MMUUTK 99 (H) 06/18/2025 07:15 AM YZH0MTS 25 06/18/2025 07:15 AM BEPOC 0 06/18/2025 07:15 AM LACTATE 0.8 06/18/2025 07:15 AM PATIENTTEMP 37.0 06/18/2025 07:15 AM PHTEMPCORR 7.45 06/18/2025 07:15 AM [id number] 35 06/18/2025 07:15 AM [id number] 131 (H) 06/18/2025 07:15 AM Lactic acid: Lab Results Component Value Date/Time LACTATE 0.8 06/18/2025 07:15 AM LACTATE 0.9 06/17/2025 11:01 PM LACTATE 0.7 06/17/2025 05:19 PM LACTATE 11.5 (HH) 06/12/2025 05:42 AM Radiology: Relevant imaging reviewed Assessment and Plan Neuro/Psych: Acute metabolic encephalopathy in the setting of cardiac arrest and critical illness - Remains neuro intact - Agitated with sedation weaning. Continue Seroquel 3 times daily Cardiovascular/Fluids: Inferior STEMI s/p AMBER to the RCA Refractory VT Cardiogenic shock with IABP and requiring mechanical circulatory support with peripheral VA ECMO Acute in-stent thrombosis of the RCA s/p balloon angioplasty - Repeat TTE on 06/16 with EF 45% - Liberated from VA ECMO on 06/17 - IABP remains in place. Hemodynamics stable - Continue DAPT, heparin GTT - No recurrence of VT. Continue amiodarone gtt. - Trend electrolytes. Keep magnesium greater than 2 and K greater than 4 - TVP in place placed on backup rate Pulmonary: Acute hypoxic respiratory failure-multifactorial in etiology secondary to acute infectious process plus pulmonary edema - Continue lung protective ventilation - Diuresis GI/NUT: Ileus -BM on 06/18 after starting relistor -Resume trickle feeds SUP, Pepcid Renal/LYTES/Acid-Base: GÉNESIS -improving - Monitor urine output - Trend electrolytes - Diuresis Infectious Disease: Streptococcal pneumonia, H. influenzae pneumonia -Completed meropenem and vancomycin for 72 hours in the setting of semisterile procedure -Narrowed to CTX on 06/15 and completed a total of 5 days of antibiotics New fever on 06/18 - Send sputum culture, pneumonia pathogen PCR - Culture negative - No recurrence of fever - Hold abx Hem/Onc/Coag: DVTp, heparin gtt Endocrine: Diabetes, new dx, likely type 2 -HbA1C - 6.3 -Continue current insulin regimen -Keep BG 120-180 Musculoskeletal/Skin: Routine ICU care Family communication: Ongoing updates Critical care time: 30 min * Aaron Carr MD - 06/19/2025 9:33 AM CDT Cardiology Progress Note Subjective: Remains on ventilator support No further arrhythmias, currently on IV amiodarone drip Off of IV pressors and inotropes. Stable BP, IABP one-to-one support Has not been pacing Current medication list reviewed 06/19/2025 PHYSICAL EXAM: BP 126/75 Pulse 80 Temp 99.4 ??F (37.4 ??C) (Core) Resp 13 Ht 5' 8 (1.727 m) Wt 98.5 kg (217 lb 2.5 oz) SpO2 92% BMI 33.02 kg/m?? Gen: No distress. Neuro: Arousable Cv: RRR. No murmur, no gallop. Pulm: Coarse breath sounds, rhonchi bilaterally Abd: Soft, BS present. Skin: Warm. No rash Ext: no edema. No cyanosis Right groin: No hematoma, no bleeding. Looks stable. Cardiac monitoring: NSR with PACs. Data Review: CBC: Recent Labs 06/17/25 0314 06/18/25 0336 06/19/25 0408 WBC 11.1* 10.9* 9.7 HGB 8.5* 11.6* 10.7* PLT 96* 101* 134* MCV 96.3 95.2 95.6 BMP: Recent Labs 06/17/25 0314 06/17/25 1720 06/18/25 0336 06/18/25 1702 06/19/25 0408 GLUCOSE 171* 146* 129* -- 104* BUN 27* 23 21 -- 22 CREAT 0.68 0.70 0.68 -- 0.66* NA 141 141 142 -- 142 K 3.8 3.4* 4.3 3.4* 3.4* Assessment: Principal Problem: ST elevation myocardial infarction involving right coronary artery Active Problems: Cardiogenic shock (CMS/HCC) Complete heart block (CMS/HCC) Cardiac arrest with ventricular fibrillation (CMS/HCC) CHB (complete heart block) ST elevation myocardial infarction (STEMI) Acute pulmonary edema (CMS/HCC) Acute hypoxemic respiratory failure (CMS/HCC) Lactic acidosis Laboratory test Patient receiving extracorporeal membrane oxygenation (ECMO) Diabetes mellitus Plan: 1. Status post inferior STEMI with cardiogenic shock: Stable BP on IABP one-to-one support 2. On standby, BP is stable and comes up. IABP changed to 2-1, will decrease to 3-1 in 1 hour, If remains hemodynamically stable, will discontinue/remove the IABP. 3. Stable rhythm, continue IV amiodarone until he can transition to p.o. 4. Status post PCI AMBER to RCA: Continue DAPT, aspirin and ticagrelor 5. Acute respiratory failure: On ventilator support, weaning. Aaron Carr MD FAC * Avni Ramirez MD - 06/18/2025 2:52 PM CDT Images from the original note were not included. Cardiology Progress note: LOS: LOS: 6 days Patient name: Isaac Franklin. [id number] Date of : 1960 Subjective: Remains critical however clinically improving, ongoing IABP support, TVP. Physical Exam: BP 104/60 Pulse 80 Temp 100 ??F (37.8 ??C) (Core) Comment (Src): SVO2 Resp 16 Ht 5' 8 (1.727 m) Wt 99.9 kg (220 lb 3.8 oz) Comment: bed weight SpO2 (!) 87% BMI 33.49 kg/m?? Gen: Sedated intubated CV: RRR Chest: Vented sounds Ext: Trace edema ; distal pulses within normal limit, IABP, TVP in place. Past Medical History: Past Medical History: Diagnosis Date Patient denies medical problems Past Surgical History: Past Surgical History: Procedure Laterality Date HX VASCULAR SURGERY N/A 06/17/2025 EXTRACORPOREAL CIRCULATION MEMBRANE OXYGENATION REMOVAL performed by Kim Penny MD at [facility] HH CARDIOVASCULAR OR INSERT MIDLINE IV 06/12/2025 INSERT MIDLINE IV 06/12/2025 GA CATH PLMT L HRT & ARTS W/NJX & ANGIO IMG S&I N/A 06/12/2025 Left heart cath performed by Prince Farr MD at [facility] INVASIVE CARDIOLOGY GA CATH PLMT L HRT & ARTS W/NJX & ANGIO IMG S&I N/A 06/13/2025 Left heart cath performed by Prince Farr MD at [facility] INVASIVE CARDIOLOGY GA INSERTION INTRA-AORTIC BALLOON ASSIST DEV PERQ N/A 06/12/2025 Intra aortic balloon pump insertion performed by Prince Farr MD at [facility] INVASIVE CARDIOLOGY GA INSERTION INTRA-AORTIC BALLOON ASSIST DEV PERQ N/A 06/13/2025 Intra aortic balloon pump insertion performed by Prince Farr MD at [facility] INVASIVE CARDIOLOGY GA INSJ/RPLCMT TEMP TRANSVNS 1CHMBR ELTRD/PM CATH N/A 06/12/2025 Pacemaker Temporary performed by Prince Farr MD at [facility] INVASIVE CARDIOLOGY GA REMOVAL INTRA-AORTIC BALLOON ASSIST DEVICE PRQ N/A 06/13/2025 Intra aortic balloon pump removal performed by Prince Farr MD at [facility] INVASIVE CARDIOLOGY GA RIGHT HEART CATH O2 SATURATION & CARDIAC OUTPUT N/A 06/12/2025 Right heart cath performed by Prince Farr MD at [facility] INVASIVE CARDIOLOGY Allergies: No Known Allergies Current Medications: Current Facility-Administered Medications Medication Dose Route Frequency Provider Last Rate Last Admin albuterol (PROVENTIL,VENTOLIN) 2.5 mg /3 mL (0.083 %) inhalation solution 2.5 mg 2.5 mg Inhalation resp, every 4 hours PRN Karlie Hamilton MD [COMPLETED] acetaminophen (TYLENOL) tablet 650 mg 650 mg Oral ONE time only Karlie Hamilton MD 650 mg at 06/18/25817 [COMPLETED] methylnaltrexone (RELISTOR) 12 mg/0.6 mL injection 12 mg 12 mg subCUT ONE time only Karlie Hamilton MD 12 mg at 06/18/25 0927 sodium chloride flush injection 5 mL 5 mL IV BID Karlie Hamilton MD 5 mL at 06/18/25 0934 [COMPLETED] heparin injection 1,500 Units 15 Units/kg IV ONE time only Karlie Hamilton MD 1,500 Units at 06/18/25 1018 furosemide (LASIX) injection 60 mg 60 mg IV BID, 7 hours apart Karlie Hamilton MD 60 mg at 102 fentaNYL (PF) 1,500 mcg/30 mL (50 mcg/mL) intravenous solution 0-150 mcg/hr IV titrate Marc Hamilton MD 2.5 mL/hr at 06/18/25 1350 125 mcg/hr at 06/18/25 1350 sennosides-docusate sodium (SENNA-S) 8.6-50 mg per tablet 2 Tablet 2 Tablet NG Tube BID Karlie Hamilton MD 2 Tablet at 06/18/25817 [COMPLETED] lactulose (ENULOSE) 10 gram/15 mL oral solution 45 mL 45 mL Oral TID Karlie Hamilton MD45 mL at 06/18/2518 [COMPLETED] potassium CHLORIDE 20 mEq/100 mL IVPB 20 mEq 20 mEq IV every 2 hours Karlie Hamilton MDStopped at 06/18/25 0412 [DISCONTINUED] heparin 10,000 Units in sodium chloride 0.9% irrigation 500 mL IRRIGATION intra-procPRN Kim Penny MD 250 mL at 06/17/25 1537 dexmedeTOMIDine in dextrose 5% (PRECEDEX) 400 mcg/100 mL (4 mcg/mL) infusion 0- 1.5 mcg/kg/hr IV titrate Karlie Hamilton MD 39.49 mL/hr at 06/18/25 1309 1.5 mcg/kg/hr at 06/18/25 1309 dextrose 5 % - sodium chloride 0.9 % infusion IV see admin instructions Karlie Hamilton MD insulin lispro (HumaLOG,ADMELOG) injection 0-18 Units 0-18 Units subCUT every 4 hours Karlie Hamilton MD 3 Units at 06/16/252026 [COMPLETED] cefTRIAXone (ROCEPHIN) 2,000 mg in sodium chloride 0.9% 50 mL IVPB (MBP) 2,000 mg IV every 12 hours (2 times daily) Karlie Hamilton MD Stopped at 06/18/25 0951 QUEtiapine (SEROquel) tablet 75 mg 75 mg NG Tube every 8 hours Lise Lantigua PA 75 mg at 329 midazolam (VERSED) injection 1 mg 1 mg IV every 4 hours PRN Lise Lantigua PA 1 mg at 06/18/25 1143 norepinephrine bitartrate-D5W (LEVOPHED) 8 mg/250 mL (32 mcg/mL) infusion 0-0.2 mcg/kg/min IV titrate Karlie Hamilton MD Stopped at 06/16/25414 [DISCONTINUED] midazolam (VERSED) 150 mg/30 mL (5 mg/mL) syringe 0-6 mg/hr IV titrate Ebony Lopez MD Stopped at 06/17/25 1900 sodium chloride flush injection 10 mL 10 mL IV every 12 hours (2 times daily) Prince Farr MD 10 mL at 06/18/25 0820 sodium chloride flush injection 10 mL 10 mL IV see admin instructions Prince Farr MD 10 mL at 06/17/252010 sodium chloride 0.9 % flush bag 25 mL 25 mL IV see admin instructions Prince Farr MD dextrose 5 % in water 250 mL flush bag 25 mL 25 mL IV see admin instructions Prince Farr MD atropine injection 0.5 mg 0.5 mg IV every 5 minutes PRN Prince Farr MD nitroglycerin (NITROSTAT) tablet 0.4 mg 0.4 mg Sublingual every 5 minutes PRN Prince Farr MD polyethylene glycol (MIRALAX) packet 17 Gram 17 Gram Oral BID Karlie Hamilton MD 17 Gram at 06/18/25 0818 heparin in 0.45% NaCl 25,000 unit/250 mL infusion 20 Units/kg/hr (Adjusted) IV titrate Marc Hamilton MD 16.6 mL/hr at 06/18/25 1023 20 Units/kg/hr at 06/18/25 1023 ondansetron (ZOFRAN) 4 mg/2 mL injection 4 mg 4 mg IV every 6 hours PRN Zenaida Michel MD sodium chloride flush injection 10 mL 10 mL IV every 12 hours (2 times daily) Prince Farr MD 10 mL at 06/18/25 0820 sodium chloride flush injection 10 mL 10 mL IV see admin instructions Prince Farr MD 10 mL at 06/13/25 2131 sodium chloride 0.9 % flush bag 25 mL 25 mL IV see admin instructions Prince aFrr MD dextrose 5 % in water 250 mL flush bag 25 mL 25 mL IV see admin instructions Prince Farr MD naloxone (NARCAN) 0.4 mg/mL injection 0.1-0.4 mg 0.1-0.4 mg IV see admin instructions Prince Farr MD aspirin (SNOW CHEWABLE) chewable tablet 81 mg 81 mg Oral daily Prince Farr MD 81 mg at 8 ticagrelor (BRILINTA) tablet 90 mg 90 mg Oral BID Prince Farr MD 90 mg at 06/18/25817 rosuvastatin (CRESTOR) tablet 20 mg 20 mg Oral daily BEDTIME Prince Farr MD 20 mg at 06/17/252002 naloxone (NARCAN) 0.4 mg/mL injection 0.1-0.4 mg 0.1-0.4 mg IV see admin instructions Love Gonzalez, BOTTOM SAW OPERATOR replacement reminder - Potassium 1 Each See Admin Instructions see admin instructions Love Gonzalez, BOTTOM SAW OPERATOR replacement reminder-Magnesium 1 Each See Admin Instructions see admin instructions Love Gonzalez, YVAN replacement reminder - Phosphorus 1 Each See Admin Instructions see admin instructions Love Gonzalez, BOTTOM SAW OPERATOR replacement reminder-Calcium 1 Each See Admin Instructions see admin instructions Love Gonzalez NP famotidine PF (PEPCID) 20 mg in sodium chloride 0.9% 10 mL injection 20 mg IV BID Love Gonzalez, BOTTOM SAW OPERATOR 20 mg at 06/18/25 0818 SODIUM BICARBONATE 1 MEQ/ML (8.4 %) INTRAVENOUS SOLUTION (CABINET OVERRIDE) sodium chloride 0.9 % bolus solution 250 mL 250 mL IV ONE time only Charles Magana MD amiodarone in dextrose (ISO-OSM) (NEXTERONE) 360 mg/200 mL (1.8 mg/mL) IV infusion 0.5 mg/min IV continuous Zenaida Michel MD 16.67 mL/hr at 06/18/25 1329 0.5 mg/min at 06/18/25 1329 dextrose 5 % - sodium chloride 0.9 % infusion IV see admin instructions Zenaida Michel MD dextrose 50% (D50) syringe 12.5 Gram 12.5 Gram IV see admin instructions Zenaida Michel MD dextrose 50% (D50) syringe 25 Gram 25 Gram IV see admin instructions Zenaida Michel MD glucagon HCL 1 mg/mL injection 1 mg 1 mg IM see admin instructions Zenaida Michel MD HEPARIN (PORCINE) 1,000 UNIT/ML INJECTION SOLUTION (CABINET OVERRIDE) sodium chloride flush injection 10 mL 10 mL IV BID Zenaida Michel MD 10 mL at 06/18/25 0820 sodium chloride flush injection 10 mL 10 mL IV BID Charles Magana MD 10 mL at 06/18/25 0820 [DISCONTINUED] HYDROmorphone (PF) in NS (DILAUDID) 30 mg/30 mL (1 mg/mL) intravenous solution 0-1.2mg/hr IV titrate Neto Rivera MD Stopped at 06/18/25 1055 Facility-Administered Medications Ordered in Other Encounters Medication Dose Route Frequency Provider Last Rate Last Admin [DISCONTINUED] ceFAZolin (ANCEF,KEFZOL) vial IV intra-proc PRN Benigno Barker, COMPOSITE MECHANIC 2,000 mg at 06/17/25 1538 [DISCONTINUED] midazolam (VERSED) injection IV intra-proc PRN Benigno Barker, COMPOSITE MECHANIC 2 mg at 06/17/25 1502 [DISCONTINUED] rocuronium injection IV intra-proc PRN Benigno Barker, COMPOSITE MECHANIC 50 mg at 06/17/25 1502 [DISCONTINUED] sodium chloride 0.9 % infusion IV intra-proc continuous PRN Benigno Barker, COMPOSITE MECHANIC Stopped-Anesthesia at 06/17/25 1723 Current Facility-Administered Medications Medication albuterol (PROVENTIL,VENTOLIN) 2.5 mg /3 mL (0.083 %) inhalation solution 2.5 mg sodium chloride flush injection 5 mL furosemide (LASIX) injection 60 mg fentaNYL (PF) 1,500 mcg/30 mL (50 mcg/mL) intravenous solution sennosides-docusate sodium (SENNA-S) 8.6-50 mg per tablet 2 Tablet dexmedeTOMIDine in dextrose 5% (PRECEDEX) 400 mcg/100 mL (4 mcg/mL) infusion dextrose 5 % - sodium chloride 0.9 % infusion insulin lispro (HumaLOG,ADMELOG) injection 0-18 Units QUEtiapine (SEROquel) tablet 75 mg midazolam (VERSED) injection 1 mg norepinephrine bitartrate-D5W (LEVOPHED) 8 mg/250 mL (32 mcg/mL) infusion sodium chloride flush injection 10 mL sodium chloride flush injection 10 mL sodium chloride 0.9 % flush bag 25 mL dextrose 5 % in water 250 mL flush bag 25 mL atropine injection 0.5 mg nitroglycerin (NITROSTAT) tablet 0.4 mg polyethylene glycol (MIRALAX) packet 17 Gram heparin in 0.45% NaCl 25,000 unit/250 mL infusion ondansetron (ZOFRAN) 4 mg/2 mL injection 4 mg sodium chloride flush injection 10 mL sodium chloride flush injection 10 mL sodium chloride 0.9 % flush bag 25 mL dextrose 5 % in water 250 mL flush bag 25 mL naloxone (NARCAN) 0.4 mg/mL injection 0.1-0.4 mg aspirin (SNOW CHEWABLE) chewable tablet 81 mg ticagrelor (BRILINTA) tablet 90 mg rosuvastatin (CRESTOR) tablet 20 mg naloxone (NARCAN) 0.4 mg/mL injection 0.1-0.4 mg replacement reminder - Potassium replacement reminder-Magnesium replacement reminder - Phosphorus replacement reminder-Calcium famotidine PF (PEPCID) 20 mg in sodium chloride 0.9% 10 mL injection SODIUM BICARBONATE 1 MEQ/ML (8.4 %) INTRAVENOUS SOLUTION (CABINET OVERRIDE) sodium chloride 0.9 % bolus solution 250 mL amiodarone in dextrose (ISO-OSM) (NEXTERONE) 360 mg/200 mL (1.8 mg/mL) IV infusion dextrose 5 % - sodium chloride 0.9 % infusion dextrose 50% (D50) syringe 12.5 Gram dextrose 50% (D50) syringe 25 Gram glucagon HCL 1 mg/mL injection 1 mg HEPARIN (PORCINE) 1,000 UNIT/ML INJECTION SOLUTION (CABINET OVERRIDE) sodium chloride flush injection 10 mL sodium chloride flush injection 10 mL Consultants: IP CONSULT TO CARDIAC REHAB IP CONSULT TO SOCIAL WORK IP CONSULT TO SOFTWARE TOOLS ENGINEER IP CONSULT TO CARDIAC REHAB IP CONSULT TO NUTRITION SERVICES IP CONSULT TO ETHICS RESOURCE IP CONSULT TO IV TEAM OBJECTIVE: Temp (24hrs), Av.6 ??F (38.1 ??C), Min:100 ??F (37.8 ??C), Max:101.4 ??F (38.6 ??C) Intake/Output Summary (Last 24 hours) at 06/18/2025 1452 Last data filed at 06/18/2025 1400 Gross per 24 hour Intake 1242.25 ml Output 3570 ml Net -2327.75 ml Last documented weight: Weight: 99.9 kg (220 lb 3.8 oz) (bed weight) (06/18/25 0454) LABORATORY: Recent Labs 06/15/25 1710 06/16/25 0309 06/17/25 0314 06/18/25 0336 WBC 12.2* 11.7* 11.1* 10.9* HGB 7.8* 8.7* 8.5* 11.6* HCT 23.6* 27.2* 26.3* 35.4* PLT 92* 89* 96* 101* Recent Labs 06/15/25 1948 06/16/25 0309 06/17/25 0314 06/17/25 1720 06/18/25 0336 NA 139 139 141 141 142 K 3.8 3.6 3.8 3.4* 4.3 CL 104 104 108* 106 108* CO2 23 21* 22 23 23 CA 8.3* 8.5* 8.6* 8.4* 8.1* BUN 32* 30* 27* 23 21 CREAT 0.89 0.88 0.68 0.70 0.68 GLUCOSE 173* 111* 171* 146* 129* Recent Labs 06/16/25 0309 06/17/25 0314 06/18/25 0336 TOTALPROTEIN 5.8* 5.7* 6.0* ALBUMIN 3.0* 2.9* 3.0* BILITOTAL 0.6 0.5 0.6 ALKPHOS 88 145* 176* AST 63* 41 36 ALT 55* 42 38 No results for input(s): INR , PT in the last 72 hours. Invalid input(s): PTT No results for input(s): BASETROP , 2HRTROP , DELTA , 6HRTROP in the last 72 hours. Chart reviewed Other Results: Results for orders placed or performed during the hospital encounter of 06/12/25 EKG 12-LEAD [address] [address] Test Date: 2025-06-15 Pat Name: ISAAC FRANKLIN Department: 12 Room: [address] [place] [address] Gender: Male Compliance Representative: [id number] : 1960 Requested By: Order Number: [id number] Reading MD: Avni Ramirez Measurements Intervals Malin Rate: 78 P: -24 GA: 400 QRS: 47 QRSD: 94 T: 225 QT: 352 QTc: 401 Interpretive Statements Sinus rhythm with 1st degree AV block Low voltage QRS Cannot rule out Anterior infarct, age undetermined Abnormal ECG Electronically Signed On 06-16-2025 10:57:51 CDT by Avni Ramirez ASSESSMENT AND PLAN: Primary Discharge Diagnosis: ST elevation myocardial infarction involving right coronary artery Other Active medical issues also addressed during this admission: Active Hospital Problems Diagnosis Cardiogenic shock (CMS/HCC) Diabetes mellitus Laboratory test Patient receiving extracorporeal membrane oxygenation (ECMO) Complete heart block (CMS/HCC) ST elevation myocardial infarction involving right coronary artery Cardiac arrest with ventricular fibrillation (CMS/HCC) CHB (complete heart block) ST elevation myocardial infarction (STEMI) Acute pulmonary edema (CMS/HCC) Acute hypoxemic respiratory failure (CMS/HCC) Lactic acidosis Resolved Hospital Problems No resolved problems to display. 65-year-old male with past medical history of tobacco use, admitted with inferior STEMI complicatedwith refractory V-fib arrest, cardiogenic shock, complete heart block, requiring advanced mechanical circulatory support including VA ECMO, IABP, TVP. - Remains critical however clinically improving, ongoing IABP support, TVP. Pressor are off. Continue close monitoring and titrate with goal MAP greater than 65 mmHg - Incessant VT VF during the STEMI however overnight did not have recurrence. Continue amiodarone drip with plan to switch to amiodarone 200 mg p.o. daily for 6 weeks on discharge. Now off of lidocaine drip. - Inferior STEMI s/p PCI proximal to mid RCA; cardiogenic shock, LVEF 25%, clinically hemodynamics are moving in a good direction and patient is off of pressor/inotrope support. Weaned off of ECMO yesterday evening. Continue IABP support overnight (anticipate discontinuing IVP support tomorrow) andtemporary pacer in place. Continue uninterrupted DAPT. -Access site care per protocol. Cardiology will continue to follow closely. Current Facility-Administered Medications Medication albuterol (PROVENTIL,VENTOLIN) 2.5 mg /3 mL (0.083 %) inhalation solution 2.5 mg sodium chloride flush injection 5 mL furosemide (LASIX) injection 60 mg fentaNYL (PF) 1,500 mcg/30 mL (50 mcg/mL) intravenous solution sennosides-docusate sodium (SENNA-S) 8.6-50 mg per tablet 2 Tablet dexmedeTOMIDine in dextrose 5% (PRECEDEX) 400 mcg/100 mL (4 mcg/mL) infusion dextrose 5 % - sodium chloride 0.9 % infusion insulin lispro (HumaLOG,ADMELOG) injection 0-18 Units QUEtiapine (SEROquel) tablet 75 mg midazolam (VERSED) injection 1 mg norepinephrine bitartrate-D5W (LEVOPHED) 8 mg/250 mL (32 mcg/mL) infusion sodium chloride flush injection 10 mL sodium chloride flush injection 10 mL sodium chloride 0.9 % flush bag 25 mL dextrose 5 % in water 250 mL flush bag 25 mL atropine injection 0.5 mg nitroglycerin (NITROSTAT) tablet 0.4 mg polyethylene glycol (MIRALAX) packet 17 Gram heparin in 0.45% NaCl 25,000 unit/250 mL infusion ondansetron (ZOFRAN) 4 mg/2 mL injection 4 mg sodium chloride flush injection 10 mL sodium chloride flush injection 10 mL sodium chloride 0.9 % flush bag 25 mL dextrose 5 % in water 250 mL flush bag 25 mL naloxone (NARCAN) 0.4 mg/mL injection 0.1-0.4 mg aspirin (SNOW CHEWABLE) chewable tablet 81 mg ticagrelor (BRILINTA) tablet 90 mg rosuvastatin (CRESTOR) tablet 20 mg naloxone (NARCAN) 0.4 mg/mL injection 0.1-0.4 mg replacement reminder - Potassium replacement reminder-Magnesium replacement reminder - Phosphorus replacement reminder-Calcium famotidine PF (PEPCID) 20 mg in sodium chloride 0.9% 10 mL injection SODIUM BICARBONATE 1 MEQ/ML (8.4 %) INTRAVENOUS SOLUTION (CABINET OVERRIDE) sodium chloride 0.9 % bolus solution 250 mL amiodarone in dextrose (ISO-OSM) (NEXTERONE) 360 mg/200 mL (1.8 mg/mL) IV infusion dextrose 5 % - sodium chloride 0.9 % infusion dextrose 50% (D50) syringe 12.5 Gram dextrose 50% (D50) syringe 25 Gram glucagon HCL 1 mg/mL injection 1 mg HEPARIN (PORCINE) 1,000 UNIT/ML INJECTION SOLUTION (CABINET OVERRIDE) sodium chloride flush injection 10 mL sodium chloride flush injection 10 mL Critical care time: 35 min excluding discussion with the family/procedure time. The high probability of sudden, clinically significant deterioration in the patient's condition required the highest level of my preparedness to intervene urgently. The services I provided to this patient were to treat and/or prevent clinically significant deterioration that could result in decomposition or . Services included the following: chart data review, reviewing nursing notes and/or old charts, documentation time, organizational consultant collaboration regarding findings and treatment options, medication orders andmanagement, direct patient care, vital sign assessments and ordering, interpreting and reviewing diagnostic studies/lab tests. It did not include time spent performing other billable procedures. Assessment & plan and other portions of this note may have been copied from prior notes /templates however appropriate and necessary changes have been made to reflect patient's current medical condition, clinical course and medical decisions are being made based on guidelines and risk-benefit discussion with patient/family members and/or other providers. Portions of this document were createdthrough the use of iogynfitter helper software. Effort has been made to ensure accuracy of the mems engineer. Any obvious errors or omissions should be clarified with the author of the document. Avni Ramirez MD * Rosa Martins, RD - 06/18/2025 12:30 PM CDT Nutritional Status/Recommendations/Plan for Follow up: Pt liberated from VA ECMO yesterday. TF held due to suspected ileus - NGT output of 1500mL x 24 hours. Will monitor for improvement before resuming TF. Estimated Needs: Estimated Energy Target: 7640-9643 (06/14/25 09) Estimated Protein Target: 105-140 (06/14/25899) Estimated Fluid Target : 1750 (06/14/25899) Nutrition Energy Formula: Calories per kilogram (06/14/25899) Weight Used for Formula: [place] weight (06/14/25899) Current diet/nutrition support: DIET NPO Strict DIET TUBE FEEDING Elemental 1.2,; No,; Orogastric/Nasogastric; Feeding Method: Continuous; Initial Volume in mL/hour: 20; Goal Volume in mL/hour: 60; Feeding Advancement: 10mL q6h Food/Meal: NPO (06/18/25 0300), Weight status/changes: Height: 5' 8 (172.7 cm) (06/17/25613) Weight: 99.9 kg (220 lb 3.8 oz) (bed weight) (06/18/25453) Last seven weights (if available) from 05/21/25 1231 to 06/18/25 1230 (Last 7 readings): Weight Weight Method 06/18/25453 99.9 kg (220 lb 3.8 oz) Actual 10/23/25 0614 107.6 kg (237 lb 3.4 oz) Actual 06/17/25 0300 107.6 kg (237 lb 3.4 oz) Actual 06/16/25 0300 107.1 kg (236 lb 1.8 oz) Actual 06/14/25 0300 105.3 kg (232 lb 2.3 oz) Actual 06/13/25 0600 107.4 kg (236 lb 12.4 oz) Actual Admission:Weight: 107.4 kg (236 lb 12.4 oz) (06/13/25599)Weight Method: Actual (06/13/25599) Body mass index is 33.49 kg/m??. [place] body weight: 68.4 kg (150 lb 12.7 oz) Adjusted ideal body weight: 81 kg (178 lb 9.2 oz) Nutrition Focused Exam Physical Findings- Summary: Malnutrition Nutrition Diagnosis: (at risk) (06/14/25899) Subcutaneous Fat Loss Assessment: No findings (06/14/25899) Muscle Wasting Assessment: No findings (06/14/25899) Edema: Normal contour with a barely perceptible pit (no findings) (06/14/25899) Hand Refrigeration Engine Operator: Unable to assess (sedated) (06/14/25899) Percentage of Energy: Other (see comments) (meeting <50% estimated needs ~2 days) (06/14/25899) Percentage of Weight Loss: No history of significant wt loss (06/14/25899) Additional assessment indices: Evaristo Score: 14 (06/18/25 0300) Last Bowel Movement (mm/dd/yyyy): 06/15/25 (06/15/25 0100) Stool Consistency - Reference [place] Stool Chart: soft - (type 4/5) (06/17/25 2300) Bowel Sounds: All Quadrants: hypoactive (06/18/25 030) Allergies No Known Allergies Labs: Lab Results Component Value Date/Time NA 142 06/18/2025 03:36 AM K 4.3 06/18/2025 03:36 AM CL 108 (H) 06/18/2025 03:36 AM CO2 23 06/18/2025 03:36 AM CA 8.1 (L) 06/18/2025 03:36 AM BUN 21 06/18/2025 03:36 AM CREAT 0.68 06/18/2025 03:36 AM GLUCOSE 129 (H) 06/18/2025 03:36 AM TOTALPROTEIN 6.0 (L) 06/18/2025 03:36 AM ALBUMIN 3.0 (L) 06/18/2025 03:36 AM BILITOTAL 0.6 06/18/2025 03:36 AM ALKPHOS 176 (H) 06/18/2025 03:36 AM AST 36 06/18/2025 03:36 AM ALT 38 06/18/2025 03:36 AM ANIONGAP 11 06/18/2025 03:36 AM Lab Results Component Value Date/Time HGBA1C 6.3 (H) 06/14/2025 03:08 AM Lab Results Component Value Date/Time RDW 14.3 06/18/2025 03:36 AM No results found for: CRP , CRPHS Lab Results Component Value Date/Time MG 2.2 06/18/2025 03:36 AM Lab Results Component Value Date/Time CA 8.1 (L) 06/18/2025 03:36 AM PO4 3.2 06/18/2025 03:36 AM No results found for: UHBE676 , VITD25 , MXEB63BYU2 , JLVB94PJQ2 , XMIY39RSGC , HTID9OZPPZXX , [id number] , VITAMINDTO , JJRXRUH443 No results found for: AYTWNBTW09 No results found for: FOLATE , FOLATERBC No results found for: ZINC * Desi Wynn - 06/18/2025 12:24 PM CDT Reason for Visit: Referral Patient spiritual issues identified: Responded to Best practise. I visited with isaac, who's Intubated in the high care.rest in bed. No family present. RN was at bedside, provide good care for Isaac. I offered a silent prayer for Isaac. summary of patient???s most significant issue(s): Family : Isaac has his at home, she will be visit and be with isaac soon. Rebekah/values: Due to Isaac's health condition. I don't know his rebekah tradition. Needs/hopes resources: Medical team was at bedside, provide good care for Isaac. Spiritual interventions Ministry of presence and prayer for Isaac.Utilized presence and active listening to explore feelings, stressors, perceptions, questions/concerns, and coping patterns of Spiritual support provided;Emotional support;Hope instilled ADMINISTRATIVE PERSONAL ASSISTANT???S ASSESSMENT OF PATIENT???S LEVEL OF DISTRESS: High Outcomes of Care Due to Isaac's condition. I offered a silent prayer for Isaac at bedside. RN and medical team was at bedside, provide care for Isaac. Goals of Spiritual Care Resident Care Manager Plan Spiritual Care Services remain available for referral PRN. Recommendations for Healthcare Team As spiritual needs and distress arise, please contact Spiritual Care Services. We will follow up as needed. Thank you for this referral. Sister Desi Ed Castellon [facility] Resident Care Manager-Spiritual Care Team * Karlie Hamilton MD - 06/18/2025 10:19 AM CDT CRITICAL CARE MEDICINE DAILY PROGRESS NOTE PCP: No primary care provider on file. Hx: Isaac Franklin is a 65 y.o. male admitted 06/12/2025 after presenting to an outside ED with a chief complaint of chest pain. Past medical history is limited (ED documentation states patient denied medical problems) but patient is a known tobacco user. On the day prior to admission the patient presented to [facility] with a chief complaint of chest pain which started approximately 2 days prior to presentation and had progressively worsened. The patient noted associated nausea and denies radiation. While awaiting further evaluation at the OSH the patient sustained a VF arrest which was treated with ACLS and achieved ROSC after 2 rounds of resuscitation. EKG revealed inferior ST elevation and lateral ST depression. 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 LHC revealed 100% thrombus of the proximal RCA which was managed with AMBER. The patient warranted IABP for support and was transferred to ICU. Upon arrival to ICU the patient experienced VF arrest. ACLS was initiated. ROSC was intermittently achieved multiple times during resuscitative efforts but the patient continued to return to VF. The decision wasmade to cannulate for ECMO. This was completed and the patient was placed on VA ECMO Pertinent PMHx: Past Medical History: Diagnosis Date Patient denies medical problems Current Care Plan Summary: 65-year-old male admitted to the ICU on 06/12/2025 with inferior STEMI, VF arrest, cardiogenic shock s/p left heart cath with AMBER to the RCA and placement of IABP further complicated by development of refractory VT requiring emergent bedside VA cannulation on 06/12 On 06/13, EKG showed worsening ST elevations and he was taken back to the Intramural Director and found to have acute in-stent thrombosis of the RCA with 100% occlusion now s/p IVUS guided balloon angioplasty and successful removal and reinsertion of IABP There was concern for poor absorption of DAPT and he was started on Aggrastat gtt.for 18 hours Off pressors and ionotropes since 06/14 Liberated from VA ECMO on 06/17 Hemodynamics remained stable IABP 1:1. Chest x-ray reviewed. Positioning appropriate. Augmenting well Continue aspirin, Brilinta Continue heparin gtt TTE on 06/16 with improved EF to 45% Continue diuresis Renal function remains stable LFTs are downtrending No recurrence of VT. Continue amiodarone gtt. Lidocaine gtt discontinued 06/14 Wean sedation and continue monitor mental status If agitated, will use Precedex for vent synchrony/comfort Continue Seroquel 3 times daily Febrile this morning Prior infectious workup notable for strep pneumo and haemophilus influenza on pneumonia pathogen PCR As patient was cannulated during eCPR, semisterile procedure - received 72 hours of broad spectrum abx and then additional ceftriaxone to complete a total of 5 days of antibiotics Hold off on restarting antibiotics at this time Send sputum culture, pneumonia pathogen PCR Suspected ileus Hold TF. Place NG to suction AXR without distended bowel loops Continue bowel regimen. Start Relistor ICU timeline: 06/12: Admitted to the ICU, cardiac arrest, eCPR with pVA cannulation 06/13: Return to the Intramural Director for acute in-stent thrombosis of the RCA s/p angioplasty 06/16: ECMO flows decreased to 2-2.5L 06/17: Liberated from VA ECMO Major active problem list: Principal Problem: ST elevation myocardial infarction involving right coronary artery Active Problems: Cardiogenic shock (CMS/HCC) Complete heart block (CMS/HCC) Cardiac arrest with ventricular fibrillation (CMS/HCC) CHB (complete heart block) ST elevation myocardial infarction (STEMI) Acute pulmonary edema (CMS/HCC) Acute hypoxemic respiratory failure (CMS/HCC) Lactic acidosis Laboratory test Patient receiving extracorporeal membrane oxygenation (ECMO) Diabetes mellitus Subjective: 24 hour events - as above Objective: Current vital signs Blood pressure 104/60, pulse 80, temperature 100.9 ??F (38.3 ??C), temperature source Core, resp. rate 16, height 5' 8 (1.727 m), weight 99.9 kg (220 lb 3.8 oz), SpO2 98%. 24 hour BP and temperature range BP: -- Temp (24hrs), Av.5 ??F (38.1 ??C), Min:99.5 ??F (37.5 ??C), Max:101.4 ??F (38.6 ??C) Input/Output 06/16 1900 - 06/18 0659 In: 3046.8 [I.V.:2031.8] Out: 5540 [Urine:4040; Drains:1500] PHYSICAL EXAM: General: Synchronous with the vent Neuro: Following commands with repeated prompting Cardiac: RRR Pulm: Coarse Abdomen: Soft Extremities: Warm Data Review: BMP: Recent Labs 06/16/2530806/17/2531306/17/25 1720 06/18/25 0336 GLUCOSE 111* 171* 146* 129* BUN 30* 27* 23 21 CREAT 0.88 0.68 0.70 0.68 NA 139 141 141 142 K 3.6 3.8 3.4* 4.3 CL 104 108* 106 108* CO2 21* 22 23 23 ANIONGAP 14 11 12 11 MG 2.2 2.2 -- 2.2 PO4 3.0 2.7 -- 3.2 estimated creatinine clearance is 125.7 mL/min (by C-G formula based on SCr of 0.68 mg/dL). LFTs: Recent Labs 06/16/2530806/17/254 06/18/25 0336 ALKPHOS 88 145* 176* ALT 55* 42 38 AST 63* 41 36 BILITOTAL 0.6 0.5 0.6 ALBUMIN 3.0* 2.9* 3.0* CBC: Recent Labs 06/16/25 0309 06/17/25 0314 06/18/25 0336 WBC 11.7* 11.1* 10.9* HGB 8.7* 8.5* 11.6* HCT 27.2* 26.3* 35.4* PLT 89* 96* 101* MCV 95.8 96.3 95.2 Coagulation: Recent Labs 06/17/25 0314 06/17/25 0955 06/18/25 0854 APTT 47.7* 48.4* 44.5* ABG: Lab Results Component Value Date/Time SPECIMENSOU Arterial 06/18/2025 07:15 AM SPECIMENSOU Arterial 06/18/2025 07:15 AM PHBLOODPOC 7.45 06/18/2025 07:15 AM [id number] 35 06/18/2025 07:15 AM PO2POC 131 (H) 06/18/2025 07:15 AM IBE5MCC 24 06/18/2025 07:15 AM [id number] 99 (H) 06/18/2025 07:15 AM ISK8VVO 25 06/18/2025 07:15 AM BEPOC 0 06/18/2025 07:15 AM LACTATE 0.8 06/18/2025 07:15 AM PATIENTTEMP 37.0 06/18/2025 07:15 AM PHTEMPCORR 7.45 06/18/2025 07:15 AM [id number] 35 06/18/2025 07:15 AM [id number] 131 (H) 06/18/2025 07:15 AM Lactic acid: Lab Results Component Value Date/Time LACTATE 0.8 06/18/2025 07:15 AM LACTATE 0.9 06/17/2025 11:01 PM LACTATE 0.7 06/17/2025 05:19 PM LACTATE 11.5 (HH) 06/12/2025 05:42 AM Radiology: Relevant imaging reviewed Assessment and Plan Neuro/Psych: Acute metabolic encephalopathy in the setting of cardiac arrest and critical illness - Remains neuro intact - Agitated with sedation weaning. Continue Seroquel 3 times daily Cardiovascular/Fluids: Inferior STEMI s/p AMBER to the RCA Refractory VT Cardiogenic shock with IABP and requiring mechanical circulatory support with peripheral VA ECMO Acute in-stent thrombosis of the RCA s/p balloon angioplasty - Repeat TTE on 06/16 with EF 45% - Liberated from VA ECMO on 06/17 - IABP remains in place. Hemodynamic stable - Continue DAPT, heparin GTT - No recurrence of VT. Continue amiodarone gtt. - Trend electrolytes. Keep magnesium greater than 2 and K greater than 4 - TVP in place placed on backup rate Pulmonary: Acute hypoxic respiratory failure-multifactorial in etiology secondary to acute infectious process plus pulmonary edema - Continue lung protective ventilation - Diuresis GI/NUT: Ileus - hold TF. NG to suction. Increase bowel regimen. Add Relistor SUP, Pepcid Renal/LYTES/Acid-Base: GÉNESIS -improving - Monitor urine output - Trend electrolytes - Diuresis Infectious Disease: Streptococcal pneumonia, H. influenzae pneumonia -Completed meropenem and vancomycin for 72 hours in the setting of semisterile procedure -Narrowed to CTX on 06/15 and completed a total of 5 days of antibiotics New fever on 06/18 - Send sputum culture, pneumonia pathogen PCR Hem/Onc/Coag: DVTp, heparin gtt Endocrine: Diabetes, new dx, likely type 2 -HbA1C - 6.3 -Continue current insulin regimen -Keep BG 120-180 Musculoskeletal/Skin: Routine ICU care Family communication: Ongoing updates Critical care time: 35 min * Anyi Jasso FNP - 06/18/2025 7:28 AM CDT Images from the original note were not included. DATE: 06/17/2025 Surgeon(s): Kim Penny MD Surgeon's Hoist Operator: Robinson Maier PA-C PRE-OP DIAGNOSIS: S/p ECMO placement for cardiogenic shock 5 days ago POST-OP DIAGNOSIS: SAME Procedures: * EXTRACORPOREAL CIRCULATION MEMBRANE OXYGENATION REMOVAL FINDINGS: Good pulse dopplered in left leg at conclusion CTS will sign off and be available prn Norma Jasso RN, MSN, STOCK PLAN ADMINISTRATOR- Cardiothoracic Surgery Cosigned by Kim Penny MD at 06/20/2025 5:17 PM CDT * Karlie Hamilton MD - 06/17/2025 11:57 AM CDT [facility] ECMO Daily Management Note Isaac Franklin [id number] ECMO Day # 5 ECMO Data Most recent ABGs: Lab Results Component Value Date PUNCSITE No Charge 06/17/2025 PUNCSITE No Charge 06/17/2025 Lab Results Component Value Date/Time FIO2 50.0 06/17/2025 06:05 AM VENTMODE ECMO 06/16/2025 03:06 PM Lab Results Component Value Date/Time SPECIMENSOU Arterial 06/17/2025 06:05 AM SPECIMENSOU Arterial 06/17/2025 06:05 AM PHBLOODPOC 7.43 06/17/2025 06:05 AM [id number] 38 06/17/2025 06:05 AM PO2POC 83 06/17/2025 06:05 AM GLP8VNW 25 06/17/2025 06:05 AM [id number] 99 (H) 06/17/2025 06:05 AM TBF4JJI 26 06/17/2025 06:05 AM BEPOC 1 06/17/2025 06:05 AM LACTATE 0.6 06/17/2025 06:05 AM PATIENTTEMP 37.0 06/17/2025 06:05 AM PHTEMPCORR 7.43 06/17/2025 06:05 AM [id number] 38 06/17/2025 06:05 AM IW1BNYDKAG 83 06/17/2025 06:05 AM COMMGASESP R RADIAL 06/13/2025 11:52 AM COMMGASESP R RADIAL 06/13/2025 11:52 AM Vt Set (mL): 550 mL (06/17/25941) Set Rate (breaths/min): 12 bpm (06/17/25941) PEEP (cmH20): 10 cmH20 (06/17/25941) I have inspected the circuit and it does not show significant clot. Last documented vent settings Vt Set (mL): 550 mL (06/17/25941) Set Rate (breaths/min): 12 bpm (06/17/25941) PEEP (cmH20): 10 cmH20 (06/17/25941)Blood pressure 104/60, pulse 85, temperature 99.5 ??F (37.5 ??C), temperature source Core, resp. rate 14, height 5' 8 (1.727 m), weight 107.6 kg (237 lb 3.4 oz), SpO2 99%. Physical Exam Temp (24hrs), Av.9 ??F (37.7 ??C), Min:99.5 ??F (37.5 ??C), Max:100.3 ??F (37.9 ??C) Intake/Output Summary (Last 24 hours) at 06/17/2025 1157 Last data filed at 06/17/2025 1110 Gross per 24 hour Intake 2455.6 ml Output 2885 ml Net -429.4 ml Last documented weight: Weight: 107.6 kg (237 lb 3.4 oz) (06/17/25 0614) Admit Wt: Weight: 107.4 kg (236 lb 12.4 oz) (06/13/25 0600) Neuro: Agitated with stimulation, moving all extremities, intermittently follows commands Lungs: Coarse Heart: RRR Abdomen: Soft Extremities: BL LE are warm Cannula: Venous: 25 Fr Left Femoral multi-stage venous drainage cannula Arterial: 19 Fr Left Femoral single stage arterial return cannula 6Fr Left SFA DPC IABP Right femoral artery Peripheral art line: R radial Laboratory data CBC: Recent Labs 06/15/25170906/16/2530806/17/25313 WBC 12.2* 11.7* 11.1* HGB 7.8* 8.7* 8.5* HCT 23.6* 27.2* 26.3* PLT 92* 89* 96* BMP: Recent Labs 06/15/25 19406/16/25 03006/17/25 031 GLUCOSE 173* 111* 171* BUN 32* 30* 27* CREAT 0.89 0.88 0.68 NA 139 139 141 K 3.8 3.6 3.8 CL 104 104 108* CO2 23 21* 22 CA 8.3* 8.5* 8.6* CXR: confirmed cannula and IABP position Assessment/Plan: Acute STEMI/ Inferior NC Cardiogenic Shock Recurrent Ventricular fibrillation Cardiac arrest Acute on chronic hypoxemic respiratory failure Intra-aortic balloon pump support - Acute STEMI/inferior NC with RCA occlusion status post emergent left heart cath RCA stent placement - Refractory V-fib arrest-emergent bedside VA ECMO cannulation - Severe cardiogenic shock - Severe acute hypoxemic respiratory failure secondary to acute pulmonary edema - Intra-aortic balloon pump for afterload reduction Adequate hemodynamics and gas exchange on the above ECMO flows Remains off ionotropes and vasopressors EF has improved to 45%. No LV distension on TTE with decreased flows of 1L Diurese Continue asa, brilinta Continue heparin gtt Daily hemolysis labs reviewed Discussed with cardiology Karlie Hamilton MD * Karlie Hamilton MD - 06/17/2025 11:51 AM CDT CRITICAL CARE MEDICINE DAILY PROGRESS NOTE PCP: No primary care provider on file. Hx: Isaac Franklin is a 65 y.o. male admitted 06/12/2025 after presenting to an outside ED with a chief complaint of chest pain. Past medical history is limited (ED documentation states patient denied medical problems) but patient is a known tobacco user. On the day prior to admission the patient presented to [facility] with a chief complaint of chest pain which started approximately 2 days prior to presentation and had progressively worsened. The patient noted associated nausea and denies radiation. While awaiting further evaluation at the OSH the patient sustained a VF arrest which was treated with ACLS and achieved ROSC after 2 rounds of resuscitation. EKG revealed inferior ST elevation and lateral ST depression. 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 LHC revealed 100% thrombus of the proximal RCA which was managed with AMBER. The patient warranted IABP for support and was transferred to ICU. Upon arrival to ICU the patient experienced VF arrest. ACLS was initiated. ROSC was intermittently achieved multiple times during resuscitative efforts but the patient continued to return to VF. The decision wasmade to cannulate for ECMO. This was completed and the patient was placed on VA ECMO Pertinent PMHx: Past Medical History: Diagnosis Date Patient denies medical problems Current Care Plan Summary: 65-year-old male admitted to the ICU on 06/12/2025 with inferior STEMI, VF arrest, cardiogenic shock s/p left heart cath with AMBER to the RCA and placement of IABP further complicated by development of refractory VT requiring emergent bedside VA cannulation on 06/12 On 06/13, EKG showed worsening ST elevations and he was taken back to the [facility] Director and found to have acute in-stent thrombosis of the RCA with 100% occlusion now s/p IVUS guided balloon angioplasty and successful removal and reinsertion of IABP There was concern for poor absorption of DAPT and he was started on Aggrastat gtt.for 18 hours Off pressors and ionotropes since 06/14 PAC parameters reviewed ABG and ECMO parameters reviewed. See separate ECMO management note IABP 1:1. Chest x-ray reviewed. Positioning appropriate. Augmenting well Troponins are downtrending Continue aspirin, Brilinta Continue heparin gtt TTE on 06/16 with improved EF to 45%. No LV distension noted with turning down ECMO flows during the TTE Will d/w cardiology and CTS re: timing of ECMO explant Continue diuresis Renal function remains stable LFTs are downtrending No recurrence of VT Continue amiodarone gtt. Lidocaine gtt discontinued 06/14 Continues to be intermittently agitated On versed and dilaudid gtt Continue Seroquel 3 times daily Infectious workup notable for strep pneumo and haemophilus influenza on pneumonia pathogen PCR Other cultures negative As patient was cannulated during eCPR, semisterile procedure - received 72 hours of broad spectrum abx. Narrowed to CTX on 06/15 Suspected ileus Hold TF. Place NG to suction AXR without distended bowel loops Increase bowel regimen ICU timeline: 06/12: Admitted to the ICU, cardiac arrest, eCPR with pVA cannulation 06/13: Return to the Intram[facility] Director for acute in-stent thrombosis of the RCA s/p angioplasty 06/16: ECMO flows decreased to 2-2.5L Major active problem list: Principal Problem: ST elevation myocardial infarction involving right coronary artery Active Problems: Cardiogenic shock (CMS/HCC) Complete heart block (CMS/HCC) Cardiac arrest with ventricular fibrillation (CMS/HCC) CHB (complete heart block) ST elevation myocardial infarction (STEMI) Acute pulmonary edema (CMS/HCC) Acute hypoxemic respiratory failure (CMS/HCC) Lactic acidosis Laboratory test Patient receiving extracorporeal membrane oxygenation (ECMO) Diabetes mellitus Subjective: 24 hour events - as above Objective: Current vital signs Blood pressure 104/60, pulse 85, temperature 99.5 ??F (37.5 ??C), temperature source Core, resp. rate 14, height 5' 8 (1.727 m), weight 107.6 kg (237 lb 3.4 oz), SpO2 99%. 24 hour BP and temperature range BP: (104)/(60) Temp (24hrs), Av.9 ??F (37.7 ??C), Min:99.5 ??F (37.5 ??C), Max:100.3 ??F (37.9 ??C) Input/Output 06/15 1900 - 06/17 0659 In: 4120.8 [I.V.:1625.8] Out: 3660 [Urine:3660] PHYSICAL EXAM: General: Synchronous with the vent Neuro: Following commands off of sedation Cardiac: RRR Pulm: Coarse Abdomen: Soft Extremities: Warm Data Review: BMP: Recent Labs 06/15/2540206/15/25194706/16/2530806/17/25313 GLUCOSE 159* 173* 111* 171* BUN 31* 32* 30* 27* CREAT 0.85 0.89 0.88 0.68 NA 138 139 139 141 K 4.1 3.8 3.6 3.8 CL 103 104 104 108* CO2 23 23 21* 22 ANIONGAP 12 12 14 11 MG 2.2 -- 2.2 2.2 PO4 2.0* -- 3.0 2.7 estimated creatinine clearance is 130.5 mL/min (by C-G formula based on SCr of 0.68 mg/dL). LFTs: Recent Labs 06/15/25 04006/16/2530806/17/25313 ALKPHOS 66 88 145* ALT 71* 55* 42 AST 104* 63* 41 BILITOTAL 0.7 0.6 0.5 ALBUMIN 2.9* 3.0* 2.9* CBC: Recent Labs 06/15/25170906/16/2530806/17/25313 WBC 12.2* 11.7* 11.1* HGB 7.8* 8.7* 8.5* HCT 23.6* 27.2* 26.3* PLT 92* 89* 96* MCV 95.2 95.8 96.3 Coagulation: Recent Labs 06/16/25202506/17/25 0314 06/17/25 0955 APTT 49.1* 47.7* 48.4* ABG: Lab Results Component Value Date/Time SPECIMENSOU Arterial 06/17/2025 06:05 AM SPECIMENSOU Arterial 06/17/2025 06:05 AM PHBLOODPOC 7.43 06/17/2025 06:05 AM [id number] 38 06/17/2025 06:05 AM PO2POC 83 06/17/2025 06:05 AM RAK8LQS 25 06/17/2025 06:05 AM E3PDECHQ 99 (H) 06/17/2025 06:05 AM ZDX8QLU 26 06/17/2025 06:05 AM BEPOC 1 06/17/2025 06:05 AM LACTATE 0.6 06/17/2025 06:05 AM PATIENTTEMP 37.0 06/17/2025 06:05 AM PHTEMPCORR 7.43 06/17/2025 06:05 AM [id number] 38 06/17/2025 06:05 AM [id number] 83 06/17/2025 06:05 AM Lactic acid: Lab Results Component Value Date/Time LACTATE 0.6 06/17/2025 06:05 AM LACTATE 1.0 06/16/2025 11:08 PM LACTATE 0.7 06/16/2025 03:06 PM LACTATE 11.5 (HH) 06/12/2025 05:42 AM Radiology: Relevant imaging reviewed Assessment and Plan Neuro/Psych: Acute metabolic encephalopathy in the setting of cardiac arrest and critical illness - Remains neuro intact - Agitated with sedation weaning. Continue Seroquel 3 times daily - Continue versed and dilaudid gtt Cardiovascular/Fluids: Inferior STEMI s/p AMBER to the RCA Refractory VT Cardiogenic shock with IABP and requiring mechanical circulatory support with peripheral VA ECMO Acute in-stent thrombosis of the RCA s/p balloon angioplasty - TTE on 06/22 EF 25% - Continue pVA ECMO, IABP - Troponin downtrending - Continue DAPT, heparin GTT - No recurrence of VT. Continue amiodarone gtt. - Trend electrolytes. Keep magnesium greater than 2 and K greater than 4 - TVP in place placed on backup rate Pulmonary: Acute hypoxic respiratory failure-multifactorial in etiology secondary to acute infectious process plus pulmonary edema - Continue lung protective ventilation - Diuresis GI/NUT: Ileus - hold TF. NG to suction. Increase bowel regimen SUP, Pepcid Renal/LYTES/Acid-Base: GÉNESIS -improving - Monitor urine output - Trend electrolytes - Diuresis Infectious Disease: Streptococcal pneumonia, H. influenzae pneumonia Completed meropenem and vancomycin for 72 hours in the setting of semisterile procedure Narrowed to CTX on 06/15 Hem/Onc/Coag: DVTp, heparin gtt Endocrine: Diabetes, new dx, likely type 2 -HbA1C - 6.3 -Continue current insulin regimen -Keep BG 120-180 Musculoskeletal/Skin: Routine ICU care Family communication: Ongoing updates Critical care time: 35 min * Avni Ramirez MD - 06/17/2025 8:52 AM CDT Images from the original note were not included. Cardiology Progress note: LOS: LOS: 5 days Patient name: Isaac Franklin. [id number] Date of : 1960 3315/ Subjective: Remains critical however clinically improving, ECMO support however requirement is coming down, IABP support, TVP. Pressor requirement coming down. Physical Exam: BP 104/60 Pulse 85 Temp 99.5 ??F (37.5 ??C) (Core) Resp 12 Ht 5' 8 (1.727 m) Wt 107.6 kg(237 lb 3.4 oz) SpO2 99% BMI 36.07 kg/m?? Gen: Sedated intubated CV: RRR Chest: Vented sounds Ext: Trace edema Past Medical History: Past Medical History: Diagnosis Date Patient denies medical problems Past Surgical History: Past Surgical History: Procedure Laterality Date INSERT MIDLINE IV 06/12/2025 INSERT MIDLINE IV 06/12/2025 GA CATH PLMT L HRT & ARTS W/NJX & ANGIO IMG S&I N/A 06/12/2025 Left heart cath performed by Prince Farr MD at [facility] GA CATH PLMT L HRT & ARTS W/NJX & ANGIO IMG S&I N/A 06/13/2025 Left heart cath performed by Prince Farr MD at [facility] GA INSERTION INTRA-AORTIC BALLOON ASSIST DEV PERQ N/A 06/12/2025 Intra aortic balloon pump insertion performed by Prince Farr MD at [facility] GA INSERTION INTRA-AORTIC BALLOON ASSIST DEV PERQ N/A 06/13/2025 Intra aortic balloon pump insertion performed by Prince Farr MD at [facility] GA INSJ/RPLCMT TEMP TRANSVNS 1CHMBR ELTRD/PM CATH N/A 06/12/2025 Pacemaker Temporary performed by Prince Farr MD at [facility] GA REMOVAL INTRA-AORTIC BALLOON ASSIST DEVICE PRQ N/A 06/13/2025 Intra aortic balloon pump removal performed by Prince Farr MD at [facility] GA RIGHT HEART CATH O2 SATURATION & CARDIAC OUTPUT N/A 06/12/2025 Right heart cath performed by Prince Farr MD at [facility] Allergies: No Known Allergies Current Medications: Current Facility-Administered Medications Medication Dose Route Frequency Provider Last Rate Last Admin [COMPLETED] heparin injection 1,300 Units 15 Units/kg (Adjusted) IV ONE time only Karlie Hamilton MD 1,300 Units at 06/17/25 0356 [COMPLETED] potassium BICARBONATE-citric acid (EFFER-K) tablet 40 mEq 40 mEq Oral ONE time only Karlie Hamilton MD 40 mEq at 06/17/25 0502 [COMPLETED] heparin injection 1,200 Units 1,200 Units IV ONE time only Karlie Hamilton MD 1,200 Units at 06/17/25 1042 furosemide (LASIX) injection 60 mg 60 mg IV ONE time only Karlie Hamilton MD sennosides-docusate sodium (SENNA-S) 8.6-50 mg per tablet 2 Tablet 2 Tablet NG Tube BID Karlie Hamilton MD lactulose (ENULOSE) 10 gram/15 mL oral solution 45 mL 45 mL Oral TID Karlie Hamilton MD [COMPLETED] heparin injection 1,300 Units 15 Units/kg (Adjusted) IV ONE time only Karlie Hamilton MD 1,300 Units at 06/16/25 1428 [COMPLETED] heparin injection 1,300 Units 15 Units/kg (Adjusted) IV ONE time only Karlie Hamilton MD 1,300 Units at 06/16/25 2106 [DISCONTINUED] furosemide (LASIX) injection 60 mg 60 mg IV ONE time only Karlie Hamilton MD dexmedeTOMIDine in dextrose 5% (PRECEDEX) 400 mcg/100 mL (4 mcg/mL) infusion 0- 1.5 mcg/kg/hr IV titrate Karlie Hamilton MD Stopped at 06/15/25 2215 dextrose 5 % - sodium chloride 0.9 % infusion IV see admin instructions Karlie Hamilton MD insulin lispro (HumaLOG,ADMELOG) injection 0-18 Units 0-18 Units subCUT every 4 hours Karlie Hamilton MD 3 Units at 06/16/25 202 cefTRIAXone (ROCEPHIN) 2,000 mg in sodium chloride 0.9% 50 mL IVPB (MBP) 2,000 mg IV every 12 hours(2 times daily) Karlie Hamilton MD Stopped at 06/17/25 0910 QUEtiapine (SEROquel) tablet 75 mg 75 mg NG Tube every 8 hours Lise Lantigua PA 75 mg at 502 midazolam (VERSED) injection 1 mg 1 mg IV every 4 hours PRN Lise Lantigua PA 1 mg at 06/15/25 1705 norepinephrine bitartrate-D5W (LEVOPHED) 8 mg/250 mL (32 mcg/mL) infusion 0-0.2 mcg/kg/min IV titrate Karlie Hamilton MD Stopped at 06/16/25 0415 midazolam (VERSED) 150 mg/30 mL (5 mg/mL) syringe 0-6 mg/hr IV titrate Ebony Lopez MD 0.4 mL/hr at 06/15/25 1936 2 mg/hr at 06/15/25 1936 sodium chloride flush injection 10 mL 10 mL IV every 12 hours (2 times daily) Prince Farr MD 10 mL at 06/17/25 0822 sodium chloride flush injection 10 mL 10 mL IV see admin instructions Prince Farr MD sodium chloride 0.9 % flush bag 25 mL 25 mL IV see admin instructions Prince Farr MD dextrose 5 % in water 250 mL flush bag 25 mL 25 mL IV see admin instructions Prince Farr MD atropine injection 0.5 mg 0.5 mg IV every 5 minutes PRN Prince Farr MD nitroglycerin (NITROSTAT) tablet 0.4 mg 0.4 mg Sublingual every 5 minutes PRN Prince Farr MD polyethylene glycol (MIRALAX) packet 17 Gram 17 Gram Oral BID Karlie Hamilton MD 17 Gram at 06/17/25 0822 heparin in 0.45% NaCl 25,000 unit/250 mL infusion 19 Units/kg/hr (Adjusted) IV titrate Marc Hamilton MD 15.8 mL/hr at 06/17/25 1110 19 Units/kg/hr at 06/17/25 1110 ondansetron (ZOFRAN) 4 mg/2 mL injection 4 mg 4 mg IV every 6 hours PRN Zenaida Michel MD [DISCONTINUED] sennosides-docusate sodium (SENNA-S) 8.6-50 mg per tablet 1 Tablet 1 Tablet NG Tube BID Zenaida Michel MD 1 Tablet at 06/17/25 0821 sodium chloride flush injection 10 mL 10 mL IV every 12 hours (2 times daily) Prince Farr MD 10 mL at 06/17/25 0822 sodium chloride flush injection 10 mL 10 mL IV see admin instructions Prince Farr MD 10 mL at 06/13/25 2131 sodium chloride 0.9 % flush bag 25 mL 25 mL IV see admin instructions Prince Farr MD dextrose 5 % in water 250 mL flush bag 25 mL 25 mL IV see admin instructions Prince Farr MD naloxone (NARCAN) 0.4 mg/mL injection 0.1-0.4 mg 0.1-0.4 mg IV see admin instructions Prince Farr MD aspirin (SNOW CHEWABLE) chewable tablet 81 mg 81 mg Oral daily Prince Farr MD 81 mg at 822 ticagrelor (BRILINTA) tablet 90 mg 90 mg Oral BID Prince Farr MD 90 mg at 06/17/25 0822 rosuvastatin (CRESTOR) tablet 20 mg 20 mg Oral daily BEDTIME Prince Farr MD 20 mg at 06/16/252012 naloxone (NARCAN) 0.4 mg/mL injection 0.1-0.4 mg 0.1-0.4 mg IV see admin instructions Love Gonzalez, YVAN replacement reminder - Potassium 1 Each See Admin Instructions see admin instructions Love Gonzalez NP replacement reminder-Magnesium 1 Each See Admin Instructions see admin instructions Love Gonzalez NP replacement reminder - Phosphorus 1 Each See Admin Instructions see admin instructions Love Gonzalez, YVAN replacement reminder-Calcium 1 Each See Admin Instructions see admin instructions Love Gonzalez NP famotidine PF (PEPCID) 20 mg in sodium chloride 0.9% 10 mL injection 20 mg IV BID Love Gonzalez NP 20 mg at 06/17/25 0822 SODIUM BICARBONATE 1 MEQ/ML (8.4 %) INTRAVENOUS SOLUTION (CABINET OVERRIDE) sodium chloride 0.9 % bolus solution 250 mL 250 mL IV ONE time only Charles Magana MD amiodarone in dextrose (ISO-OSM) (NEXTERONE) 360 mg/200 mL (1.8 mg/mL) IV infusion 0.5 mg/min IV continuous Zenaida Michel MD 16.67 mL/hr at 06/17/25 1110 0.5 mg/min at 06/17/25 1110 HYDROmorphone (PF) in NS (DILAUDID) 30 mg/30 mL (1 mg/mL) intravenous solution 0-1.2 mg/hr IV titrate Karlie Hamilton MD 1.2 mL/hr at 06/17/25 0355 1.2 mg/hr at 06/17/25 0355 dextrose 5 % - sodium chloride 0.9 % infusion IV see admin instructions Zenaida Michel MD dextrose 50% (D50) syringe 12.5 Gram 12.5 Gram IV see admin instructions Zenaida Michel MD dextrose 50% (D50) syringe 25 Gram 25 Gram IV see admin instructions Zenaida Michel MD glucagon HCL 1 mg/mL injection 1 mg 1 mg IM see admin instructions Zenaida Michel MD HEPARIN (PORCINE) 1,000 UNIT/ML INJECTION SOLUTION (CABINET OVERRIDE) sodium chloride flush injection 10 mL 10 mL IV BID Zenaida Michel MD 10 mL at 06/17/25 0822 sodium chloride flush injection 10 mL 10 mL IV BID Charles Magana MD 10 mL at 06/17/25 0822 [DISCONTINUED] furosemide (LASIX) injection 40 mg 40 mg IV BID, 7 hours apart Prince Farr MD Current Facility-Administered Medications Medication furosemide (LASIX) injection 60 mg sennosides-docusate sodium (SENNA-S) 8.6-50 mg per tablet 2 Tablet lactulose (ENULOSE) 10 gram/15 mL oral solution 45 mL dexmedeTOMIDine in dextrose 5% (PRECEDEX) 400 mcg/100 mL (4 mcg/mL) infusion dextrose 5 % - sodium chloride 0.9 % infusion insulin lispro (HumaLOG,ADMELOG) injection 0-18 Units cefTRIAXone (ROCEPHIN) 2,000 mg in sodium chloride 0.9% 50 mL IVPB (MBP) QUEtiapine (SEROquel) tablet 75 mg midazolam (VERSED) injection 1 mg norepinephrine bitartrate-D5W (LEVOPHED) 8 mg/250 mL (32 mcg/mL) infusion midazolam (VERSED) 150 mg/30 mL (5 mg/mL) syringe sodium chloride flush injection 10 mL sodium chloride flush injection 10 mL sodium chloride 0.9 % flush bag 25 mL dextrose 5 % in water 250 mL flush bag 25 mL atropine injection 0.5 mg nitroglycerin (NITROSTAT) tablet 0.4 mg polyethylene glycol (MIRALAX) packet 17 Gram heparin in 0.45% NaCl 25,000 unit/250 mL infusion ondansetron (ZOFRAN) 4 mg/2 mL injection 4 mg sodium chloride flush injection 10 mL sodium chloride flush injection 10 mL sodium chloride 0.9 % flush bag 25 mL dextrose 5 % in water 250 mL flush bag 25 mL naloxone (NARCAN) 0.4 mg/mL injection 0.1-0.4 mg aspirin (SNOW CHEWABLE) chewable tablet 81 mg ticagrelor (BRILINTA) tablet 90 mg rosuvastatin (CRESTOR) tablet 20 mg naloxone (NARCAN) 0.4 mg/mL injection 0.1-0.4 mg replacement reminder - Potassium replacement reminder-Magnesium replacement reminder - Phosphorus replacement reminder-Calcium famotidine PF (PEPCID) 20 mg in sodium chloride 0.9% 10 mL injection SODIUM BICARBONATE 1 MEQ/ML (8.4 %) INTRAVENOUS SOLUTION (CABINET OVERRIDE) sodium chloride 0.9 % bolus solution 250 mL amiodarone in dextrose (ISO-OSM) (NEXTERONE) 360 mg/200 mL (1.8 mg/mL) IV infusion HYDROmorphone (PF) in NS (DILAUDID) 30 mg/30 mL (1 mg/mL) intravenous solution dextrose 5 % - sodium chloride 0.9 % infusion dextrose 50% (D50) syringe 12.5 Gram dextrose 50% (D50) syringe 25 Gram glucagon HCL 1 mg/mL injection 1 mg HEPARIN (PORCINE) 1,000 UNIT/ML INJECTION SOLUTION (CABINET OVERRIDE) sodium chloride flush injection 10 mL sodium chloride flush injection 10 mL Consultants: IP CONSULT TO CARDIAC REHAB IP CONSULT TO SOCIAL WORK IP CONSULT TO SOFTWARE TOOLS ENGINEER IP CONSULT TO CARDIAC REHAB IP CONSULT TO NUTRITION SERVICES IP CONSULT TO ETHICS RESOURCE OBJECTIVE: Temp (24hrs), Av.9 ??F (37.7 ??C), Min:99.5 ??F (37.5 ??C), Max:100.3 ??F (37.9 ??C) Intake/Output Summary (Last 24 hours) at 06/17/2025 1238 Last data filed at 06/17/2025 1200 Gross per 24 hour Intake 2395.6 ml Output 3355 ml Net -959.4 ml Last documented weight: Weight: 107.6 kg (237 lb 3.4 oz) (06/17/25 0614) LABORATORY: Recent Labs 06/15/25 0403 06/15/25 1710 06/16/25 0309 06/17/25 0314 WBC 12.5* 12.2* 11.7* 11.1* HGB 8.2* 7.8* 8.7* 8.5* HCT 24.8* 23.6* 27.2* 26.3* PLT 92* 92* 89* 96* Recent Labs 10/20/25 2005 10/40206/15/25194706/16/2530806/17/25 0314 NA 137 138 139 139 141 K 4.1 4.1 3.8 3.6 3.8 CL 102 103 104 104 108* CO2 23 23 23 21* 22 CA 8.7* 8.8 8.3* 8.5* 8.6* BUN 30* 31* 32* 30* 27* CREAT 0.91 0.85 0.89 0.88 0.68 GLUCOSE 129* 159* 173* 111* 171* Recent Labs 06/15/2540206/16/2530806/17/25313 TOTALPROTEIN 5.5* 5.8* 5.7* ALBUMIN 2.9* 3.0* 2.9* BILITOTAL 0.7 0.6 0.5 ALKPHOS 66 88 145* AST 104* 63* 41 ALT 71* 55* 42 No results for input(s): INR , PT in the last 72 hours. Invalid input(s): PTT No results for input(s): BASETROP , 2HRTROP , DELTA , 6HRTROP in the last 72 hours. Chart reviewed Other Results: Results for orders placed or performed during the hospital encounter of 06/12/25 EKG 12-LEAD [address] [address] Test Date: 2025-06-15 Pat Name: ISAAC FRANKLIN Department: 12 Room: [address] [place] [address] Gender: Male Compliance Representative: [id number] : 1960 Requested By: Order Number: [id number] Reading MD: Avni Ramirez Measurements Intervals Malin Rate: 78 P: -24 GA: 400 QRS: 47 QRSD: 94 T: 225 QT: 352 QTc: 401 Interpretive Statements Sinus rhythm with 1st degree AV block Low voltage QRS Cannot rule out Anterior infarct, age undetermined Abnormal ECG Electronically Signed On 06-16-2025 10:57:51 CDT by Avni Ramirez ASSESSMENT AND PLAN: Primary Discharge Diagnosis: ST elevation myocardial infarction involving right coronary artery Other Active medical issues also addressed during this admission: Active Hospital Problems Diagnosis Cardiogenic shock (CMS/HCC) Diabetes mellitus Laboratory test Patient receiving extracorporeal membrane oxygenation (ECMO) Complete heart block (CMS/HCC) ST elevation myocardial infarction involving right coronary artery Cardiac arrest with ventricular fibrillation (CMS/HCC) CHB (complete heart block) ST elevation myocardial infarction (STEMI) Acute pulmonary edema (CMS/HCC) Acute hypoxemic respiratory failure (CMS/HCC) Lactic acidosis Resolved Hospital Problems No resolved problems to display. 65-year-old male with past medical history of tobacco use, admitted with inferior STEMI complicatedwith refractory V-fib arrest, cardiogenic shock, complete heart block, requiring advanced mechanical circulatory support including VA ECMO, IABP, TVP. - Remains critical however clinically improving, ECMO support however requirement is coming down, IABP support, TVP. Pressor requirement coming down. - Incessant VT VF during the STEMI however overnight did not have recurrence. Continue amiodarone drip. Now off of lidocaine drip. - Inferior STEMI s/p PCI proximal to mid RCA; cardiogenic shock, LVEF 25%, clinically hemodynamics are moving in a good direction and patient is not needing much pressor/inotrope support. Still needing ECMO support which we are slowly titrating down and anticipate explanting ECMO later today versusearly tomorrow. Continue IABP support and temporary pacer in place. Continue uninterrupted DAPT. Also needing heparin while on mechanical circulatory support. -Access site care per protocol. Cardiology will continue to follow closely. Current Facility-Administered Medications Medication furosemide (LASIX) injection 60 mg sennosides-docusate sodium (SENNA-S) 8.6-50 mg per tablet 2 Tablet lactulose (ENULOSE) 10 gram/15 mL oral solution 45 mL dexmedeTOMIDine in dextrose 5% (PRECEDEX) 400 mcg/100 mL (4 mcg/mL) infusion dextrose 5 % - sodium chloride 0.9 % infusion insulin lispro (HumaLOG,ADMELOG) injection 0-18 Units cefTRIAXone (ROCEPHIN) 2,000 mg in sodium chloride 0.9% 50 mL IVPB (MBP) QUEtiapine (SEROquel) tablet 75 mg midazolam (VERSED) injection 1 mg norepinephrine bitartrate-D5W (LEVOPHED) 8 mg/250 mL (32 mcg/mL) infusion midazolam (VERSED) 150 mg/30 mL (5 mg/mL) syringe sodium chloride flush injection 10 mL sodium chloride flush injection 10 mL sodium chloride 0.9 % flush bag 25 mL dextrose 5 % in water 250 mL flush bag 25 mL atropine injection 0.5 mg nitroglycerin (NITROSTAT) tablet 0.4 mg polyethylene glycol (MIRALAX) packet 17 Gram heparin in 0.45% NaCl 25,000 unit/250 mL infusion ondansetron (ZOFRAN) 4 mg/2 mL injection 4 mg sodium chloride flush injection 10 mL sodium chloride flush injection 10 mL sodium chloride 0.9 % flush bag 25 mL dextrose 5 % in water 250 mL flush bag 25 mL naloxone (NARCAN) 0.4 mg/mL injection 0.1-0.4 mg aspirin (SNOW CHEWABLE) chewable tablet 81 mg ticagrelor (BRILINTA) tablet 90 mg rosuvastatin (CRESTOR) tablet 20 mg naloxone (NARCAN) 0.4 mg/mL injection 0.1-0.4 mg replacement reminder - Potassium replacement reminder-Magnesium replacement reminder - Phosphorus replacement reminder-Calcium famotidine PF (PEPCID) 20 mg in sodium chloride 0.9% 10 mL injection SODIUM BICARBONATE 1 MEQ/ML (8.4 %) INTRAVENOUS SOLUTION (CABINET OVERRIDE) sodium chloride 0.9 % bolus solution 250 mL amiodarone in dextrose (ISO-OSM) (NEXTERONE) 360 mg/200 mL (1.8 mg/mL) IV infusion HYDROmorphone (PF) in NS (DILAUDID) 30 mg/30 mL (1 mg/mL) intravenous solution dextrose 5 % - sodium chloride 0.9 % infusion dextrose 50% (D50) syringe 12.5 Gram dextrose 50% (D50) syringe 25 Gram glucagon HCL 1 mg/mL injection 1 mg HEPARIN (PORCINE) 1,000 UNIT/ML INJECTION SOLUTION (CABINET OVERRIDE) sodium chloride flush injection 10 mL sodium chloride flush injection 10 mL Critical care time: 35 min excluding discussion with the family/procedure time. The high probability of sudden, clinically significant deterioration in the patient's condition required the highest level of my preparedness to intervene urgently. The services I provided to this patient were to treat and/or prevent clinically significant deterioration that could result in decomposition or . Services included the following: chart data review, reviewing nursing notes and/or old charts, documentation time, organizational consultant collaboration regarding findings and treatment options, medication orders andmanagement, direct patient care, vital sign assessments and ordering, interpreting and reviewing diagnostic studies/lab tests. It did not include time spent performing other billable procedures. Assessment & plan and other portions of this note may have been copied from prior notes /templates however appropriate and necessary changes have been made to reflect patient's current medical condition, clinical course and medical decisions are being made based on guidelines and risk-benefit discussion with patient/family members and/or other providers. Portions of this document were createdthrough the use of iogynfitter helper software. Effort has been made to ensure accuracy of the mems engineer. Any obvious errors or omissions should be clarified with the author of the document. Avni Ramirez MD * Robinson Diego M - 06/16/2025 8:04 PM CDT Reason for Visit: Referral Patient spiritual issues identified summary of patient???s most significant issue(s): Isaac's family is visiting this evening and have requested to speak with the envelope cutter. His brother (Babar) is a technology internship in [place], [place], and believes strongly in the power of prayer for healing. Babar mentions that Isaac's heart function is slowly improving, for which he is grateful. Family is heading back to [place] soon and is requesting a daily visit and prayer for Isaac while he is in the ICU. Resident Care Manager will pass along request to tomorrow's day team for continued follow up and support. Family welcomes prayer, and expresses appreciation for the support and prayer. Spiritual Care remains available 18/03 should any spiritual/emotional needs arise. Spiritual interventions Utilized presence and active listening to explore feelings, stressors, perceptions, questions/concerns, and coping patterns of Isaac's family. Explained the availability of chaplains /.Provided prayer per pt/family request.Provided pastoral care and support to family/friends. (P) Spiritual support provided;Prayer provided ADMINISTRATIVE PERSONAL ASSISTANT???S ASSESSMENT OF PATIENT???S LEVEL OF DISTRESS: Intubated Outcomes of Care Patient/Family reports the availability of a strong support systemPt/family verbalized appreciation/gratitude for pastoral presence and support. Goals of Spiritual Care Resident Care Manager Plan Spiritual Care Services remain available for referral PRN. Recommendations for Healthcare Team As spiritual needs/distress arise, please contact Spiritual Care Services. We will follow up as needed. Thank you for this referral. Chaplain Robinson Diego Spiritual Care Team [phone] * Karlie Hamilton MD - 06/16/2025 12:40 PM CDT CRITICAL CARE MEDICINE DAILY PROGRESS NOTE PCP: No primary care provider on file. Hx: Isaac Franklin is a 65 y.o. male admitted 06/12/2025 after presenting to an outside ED with a chief complaint of chest pain. Past medical history is limited (ED documentation states patient denied medical problems) but patient is a known tobacco user. On the day prior to admission the patient presented to [facility] with a chief complaint of chest pain which started approximately 2 days prior to presentation and had progressively worsened. The patient noted associated nausea and denies radiation. While awaiting further evaluation at the OSH the patient sustained a VF arrest which was treated with ACLS and achieved ROSC after 2 rounds of resuscitation. EKG revealed inferior ST elevation and lateral ST depression. 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 LHC revealed 100% thrombus of the proximal RCA which was managed with AMBER. The patient warranted IABP for support and was transferred to ICU. Upon arrival to ICU the patient experienced VF arrest. ACLS was initiated. ROSC was intermittently achieved multiple times during resuscitative efforts but the patient continued to return to VF. The decision wasmade to cannulate for ECMO. This was completed and the patient was placed on VA ECMO Pertinent PMHx: Past Medical History: Diagnosis Date Patient denies medical problems Current Care Plan Summary: 65-year-old male admitted to the ICU on 06/12/2025 with inferior STEMI, VF arrest, cardiogenic shock s/p left heart cath with AMBER to the RCA and placement of IABP further complicated by development of refractory VT requiring emergent bedside VA cannulation on 06/12 On 06/13, EKG showed worsening ST elevations and he was taken back to the Intramural Director and found to have acute in-stent thrombosis of the RCA with 100% occlusion now s/p IVUS guided balloon angioplasty and successful removal and reinsertion of IABP There was concern for poor absorption of DAPT and he was started on Aggrastat gtt.for 18 hours Off pressors and ionotropes since 06/14 PAC parameters reviewed ABG and ECMO parameters reviewed. See separate ECMO management note IABP 1:1. Chest x-ray reviewed. Positioning appropriate. Augmenting well Troponins are downtrending Continue aspirin, Brilinta Continue heparin gtt No recurrence of VT Continue amiodarone gtt. Lidocaine gtt discontinued 06/14 TTE with EF 25% Continue diuresis Renal function remains stable LFTs are downtrending Continues to be intermittently agitated On versed and dilaudid gtt Continue Seroquel 3 times daily Infectious workup notable for strep pneumo and haemophilus influenza on pneumonia pathogen PCR Other cultures negative As patient was cannulated during eCPR, semisterile procedure - received 72 hours of broad spectrum abx. Narrowed to CTX on 06/15 ICU timeline: 06/12: Admitted to the ICU, cardiac arrest, eCPR with pVA cannulation 06/13: Return to the Intramural Director for acute in-stent thrombosis of the RCA s/p angioplasty Major active problem list: Principal Problem: ST elevation myocardial infarction involving right coronary artery Active Problems: Cardiogenic shock (CMS/HCC) Complete heart block (CMS/HCC) Cardiac arrest with ventricular fibrillation (CMS/HCC) CHB (complete heart block) ST elevation myocardial infarction (STEMI) Acute pulmonary edema (CMS/HCC) Acute hypoxemic respiratory failure (CMS/HCC) Lactic acidosis Laboratory test Patient receiving extracorporeal membrane oxygenation (ECMO) Subjective: 24 hour events - as above Objective: Current vital signs Pulse (!) 59, temperature 99.9 ??F (37.7 ??C), resp. rate 14, weight 107.1 kg (236 lb 1.8 oz), [id number]%. 24 hour BP and temperature range BP: -- Temp (24hrs), Av.2 ??F (37.3 ??C), Min:98.2 ??F (36.8 ??C), Max:100.1 ??F (37.8 ??C) Input/Output 06/14 1900 - 06/16 0659 In: 4196 [I.V.:2476] Out: 3445 [Urine:3445] PHYSICAL EXAM: General: Synchronous with the vent Neuro: Following commands off of sedation Cardiac: RRR Pulm: Coarse Abdomen: Soft Extremities: Warm Data Review: BMP: Recent Labs 06/14/25 0308 06/14/25200406/15/2540206/15/25194706/16/25 0309 GLUCOSE 101* 129* 159* 173* 111* BUN 27* 30* 31* 32* 30* CREAT 0.91 0.91 0.85 0.89 0.88 NA 138 137 138 139 139 K 5.0 4.1 4.1 3.8 3.6 CL 104 102 103 104 104 CO2 21* ANIONGAP 9 12 12 12 14 MG 2.4 2.2 2.2 -- 2.2 PO4 3.0 -- 2.0* -- 3.0 estimated creatinine clearance is 100.6 mL/min (by C-G formula based on SCr of 0.88 mg/dL). LFTs: Recent Labs 06/14/25 03006/15/25 04006/16/25 0309 ALKPHOS 64 66 88 ALT 103* 71* 55* AST 178* 104* 63* BILITOTAL 0.6 0.7 0.6 ALBUMIN 2.8* 2.9* 3.0* CBC: Recent Labs 06/15/25 0403 06/15/25170906/16/25 030 WBC 12.5* 12.2* 11.7* HGB 8.2* 7.8* 8.7* HCT 24.8* 23.6* 27.2* PLT 92* 92* 89* MCV 95.0 95.2 95.8 Coagulation: Recent Labs 06/15/25170906/16/25 0035 06/16/25 0654 APTT 43.7* 49.0* 48.0* ABG: Lab Results Component Value Date/Time SPECIMENSOU Arterial 06/16/2025 06:55 AM SPECIMENSOU Arterial 06/16/2025 06:55 AM PHBLOODPOC 7.44 06/16/2025 06:55 AM YFK0OIL 39 06/16/2025 06:55 AM PO2POC 64 (L) 06/16/2025 06:55 AM BMX3TZN 27 (H) 06/16/2025 06:55 AM I9KQMWID 95 06/16/2025 06:55 AM FCZ3YCV 28 (H) 06/16/2025 06:55 AM BEPOC 2 06/16/2025 06:55 AM LACTATE 0.8 06/16/2025 06:55 AM PATIENTTEMP 37.0 06/16/2025 06:55 AM PHTEMPCORR 7.44 06/16/2025 06:55 AM HAG8ITTOET 39 06/16/2025 06:55 AM [id number] 64 (L) 06/16/2025 06:55 AM Lactic acid: Lab Results Component Value Date/Time LACTATE 0.8 06/16/2025 06:55 AM LACTATE 0.7 06/16/2025 03:10 AM LACTATE 1.0 06/16/2025 12:07 AM LACTATE 11.5 (HH) 06/12/2025 05:42 AM Radiology: Relevant imaging reviewed Assessment and Plan Neuro/Psych: Acute metabolic encephalopathy in the setting of cardiac arrest and critical illness - Remains neuro intact - Agitated with sedation weaning. Continue Seroquel 3 times daily - Continue versed and dilaudid gtt Cardiovascular/Fluids: Inferior STEMI s/p AMBER to the RCA Refractory VT Cardiogenic shock with IABP and requiring mechanical circulatory support with peripheral VA ECMO Acute in-stent thrombosis of the RCA s/p balloon angioplasty - TTE on 06/22 EF 25% - Continue pVA ECMO, IABP - Troponin downtrending - Continue DAPT, heparin GTT - No recurrence of VT. Continue amiodarone gtt. - Trend electrolytes. Keep magnesium greater than 2 and K greater than 4 - TVP in place placed on backup rate Pulmonary: Acute hypoxic respiratory failure-multifactorial in etiology secondary to acute infectious process plus pulmonary edema - Continue lung protective ventilation - Diuresis GI/NUT: Continue TF SUP, Pepcid Renal/LYTES/Acid-Base: GÉNESIS -improving - Monitor urine output - Trend electrolytes - Diuresis Infectious Disease: Streptococcal pneumonia, H. influenzae pneumonia Completed meropenem and vancomycin for 72 hours in the setting of semisterile procedure Narrowed to CTX on 06/15 Hem/Onc/Coag: DVTp, heparin gtt Endocrine: Diabetes, new dx, likely type 2 -HbA1C - 6.3 -Continue current insulin regimen -Keep BG 120-180 Musculoskeletal/Skin: Routine ICU care Family communication: D/w multiple family members in the consultation room on 3E today Critical care time: 35 min * Karlie Hamilton MD - 06/16/2025 12:39 PM CDT [facility] ECMO Daily Management Note Isaac Franklin [id number] ECMO Day # 4 RPM Settin (06/13/25599) LPM Settin.08 (06/13/25599) Sweep Settin (06/13/25599) ECMO Data Most recent ABGs: Lab Results Component Value Date PUNCSITE No Charge 06/16/2025 PUNCSITE No Charge 06/16/2025 Lab Results Component Value Date/Time FIO2 40.0 06/16/2025 03:10 AM VENTMODE ECMO 06/16/2025 06:55 AM Lab Results Component Value Date/Time SPECIMENSOU Arterial 06/16/2025 06:55 AM SPECIMENSOU Arterial 06/16/2025 06:55 AM PHBLOODPOC 7.44 06/16/2025 06:55 AM FES1CDQ 39 06/16/2025 06:55 AM PO2POC 64 (L) 06/16/2025 06:55 AM OBA2ELC 27 (H) 06/16/2025 06:55 AM N4CPDXMN 95 06/16/2025 06:55 AM VNG9SPA 28 (H) 06/16/2025 06:55 AM BEPOC 2 06/16/2025 06:55 AM LACTATE 0.8 06/16/2025 06:55 AM PATIENTTEMP 37.0 06/16/2025 06:55 AM PHTEMPCORR 7.44 06/16/2025 06:55 AM PMM9LQBRTJ 39 06/16/2025 06:55 AM VT4PNHNGNH 64 (L) 06/16/2025 06:55 AM COMMGASESP R RADIAL 06/13/2025 11:52 AM COMMGASESP R RADIAL 06/13/2025 11:52 AM Vt Set (mL): 480 mL (06/16/25645) Set Rate (breaths/min): 12 bpm (10/22/25 0646) PEEP (cmH20): 10 cmH20 (06/16/25645) I have inspected the circuit and it does not show significant clot. Last documented vent settings Vt Set (mL): 480 mL (06/16/25645) Set Rate (breaths/min): 12 bpm (06/16/25645) PEEP (cmH20): 10 cmH20 (06/16/25645)Pulse (!) 59, temperature 99.9 ??F (37.7 ??C), resp. rate 14,weight 107.1 kg (236 lb 1.8 oz), SpO2 97%. Physical Exam Temp (24hrs), Av.2 ??F (37.3 ??C), Min:98.2 ??F (36.8 ??C), Max:100.1 ??F (37.8 ??C) Intake/Output Summary (Last 24 hours) at 06/16/2025 1239 Last data filed at 06/16/2025 1100 Gross per 24 hour Intake 2863.84 ml Output 2495 ml Net 368.84 ml Last documented weight: Weight: 107.1 kg (236 lb 1.8 oz) (06/16/25 0300) Admit Wt: Weight: 107.4 kg (236 lb 12.4 oz) (06/13/25 06) Neuro: Agitated with stimulation, moving all extremities, intermittently follows commands Lungs: Coarse Heart: RRR Abdomen: Soft Extremities: BL LE are warm Cannula: Venous: 25 Fr Left Femoral multi-stage venous drainage cannula Arterial: 19 Fr Left Femoral single stage arterial return cannula 6Fr Left SFA DPC IABP Right femoral artery Peripheral art line: R radial Laboratory data CBC: Recent Labs 06/15/25 0403 06/15/25 1710 06/16/25 0309 WBC 12.5* 12.2* 11.7* HGB 8.2* 7.8* 8.7* HCT 24.8* 23.6* 27.2* PLT 92* 92* 89* BMP: Recent Labs 06/15/25 0403 06/15/25 1948 06/16/25 0309 GLUCOSE 159* 173* 111* BUN 31* 32* 30* CREAT 0.85 0.89 0.88 NA 138 139 139 K 4.1 3.8 3.6 CL 103 104 104 CO2 23 23 21* CA 8.8 8.3* 8.5* CXR: confirmed cannula positions, Venous in the RA appendage per cts will leave it in for now Assessment/Plan: Acute STEMI/ Inferior NC Cardiogenic Shock Recurrent Ventricular fibrillation Cardiac arrest Acute on chronic hypoxemic respiratory failure Intra-aortic balloon pump support - Acute STEMI/inferior NC with RCA occlusion status post emergent left heart cath RCA stent placement - Refractory V-fib arrest-emergent bedside VA ECMO cannulation - Severe cardiogenic shock - Severe acute hypoxemic respiratory failure secondary to acute pulmonary edema - Intra-aortic balloon pump for afterload reduction Adequate hemodynamics and gas exchange on the above ECMO flows Remains off ionotropes and vasopressors Will wean ECMO flows to 2.5L. Will repeat limited TTE and trend lactic acid Diurese Continue asa, brilinta Continue heparin gtt At this time patient does have adequate pulse pressure greater than 20 Daily hemolysis labs reviewed Discussed with cardiology Karlie Hamilton MD * Avni Ramirez MD - 06/16/2025 10:28 AM CDT Images from the original note were not included. Cardiology Progress note: LOS: LOS: 4 days Patient name: Isaac Franklin. [id number] Date of : 1960 3315/01 Subjective: Remains critical however clinically improving, needing ECMO support, IABP support, TVP. Pressor requirement coming down. Physical Exam: Pulse (!) 59 Temp 100 ??F (37.8 ??C) Resp 14 Wt 107.1 kg (236 lb 1.8 oz) SpO2 91% BMI 35.90 kg/m?? Gen: Sedated intubated CV: RRR Chest: Vented sounds Ext: Trace edema Past Medical History: Past Medical History: Diagnosis Date Patient denies medical problems Past Surgical History: Past Surgical History: Procedure Laterality Date INSERT MIDLINE IV 06/12/2025 INSERT MIDLINE IV 06/12/2025 GA CATH PLMT L HRT & ARTS W/NJX & ANGIO IMG S&I N/A 06/12/2025 Left heart cath performed by Prince Farr MD at [facility] GA CATH PLMT L HRT & ARTS W/NJX & ANGIO IMG S&I N/A 06/13/2025 Left heart cath performed by Prince Farr MD at [facility] GA INSERTION INTRA-AORTIC BALLOON ASSIST DEV PERQ N/A 06/12/2025 Intra aortic balloon pump insertion performed by Prince Farr MD at [facility] GA INSERTION INTRA-AORTIC BALLOON ASSIST DEV PERQ N/A 06/13/2025 Intra aortic balloon pump insertion performed by Prince Farr MD at [facility] GA INSJ/RPLCMT TEMP TRANSVNS 1CHMBR ELTRD/PM CATH N/A 06/12/2025 Pacemaker Temporary performed by Prince Farr MD at [facility] GA REMOVAL INTRA-AORTIC BALLOON ASSIST DEVICE PRQ N/A 06/13/2025 Intra aortic balloon pump removal performed by Prince Farr MD at [facility] GA RIGHT HEART CATH O2 SATURATION & CARDIAC OUTPUT N/A 06/12/2025 Right heart cath performed by Prince Farr MD at [facility] Allergies: No Known Allergies Current Medications: Current Facility-Administered Medications Medication Dose Route Frequency Provider Last Rate Last Admin [COMPLETED] heparin injection 1,200 Units 15 Units/kg (Adjusted) IV ONE time only Karlie Hamilton MD 1,200 Units at 06/16/25 0102 [COMPLETED] potassium BICARBONATE-citric acid (EFFER-K) tablet 40 mEq 40 mEq Oral ONE time only Karlie Hamilton MD 40 mEq at 06/16/25 0545 [COMPLETED] heparin injection 1,300 Units 15 Units/kg (Adjusted) IV ONE time only Karlie Hamilton MD 1,300 Units at 06/16/25 0729 dexmedeTOMIDine in dextrose 5% (PRECEDEX) 400 mcg/100 mL (4 mcg/mL) infusion 0- 1.5 mcg/kg/hr IV titrate Karlie Hamilton MD Stopped at 06/15/25 2215 dextrose 5 % - sodium chloride 0.9 % infusion IV see admin instructions Karlie Hamilton MD insulin lispro (HumaLOG,ADMELOG) injection 0-18 Units 0-18 Units subCUT every 4 hours Karlie Hamilton MD cefTRIAXone (ROCEPHIN) 2,000 mg in sodium chloride 0.9% 50 mL IVPB (MBP) 2,000 mg IV every 12 hours(2 times daily) Karlie Hamilton MD Stopped at 06/16/25 1004 [COMPLETED] furosemide (LASIX) injection 60 mg 60 mg IV ONE time only Karlie Hamilton MD 60 mg at 06/15/25 1123 [COMPLETED] acetaZOLAMIDE sodium (DIAMOX) 500 mg in sterile water 5 mL injection 500 mg IV every 12hours (2 times daily) Karlie Hamilton MD 500 mg at 06/15/252004 [COMPLETED] midazolam (VERSED) injection 2 mg 2 mg IV ONE time only Karlie Hamilton MD 2 mg at 06/15/251199 QUEtiapine (SEROquel) tablet 75 mg 75 mg NG Tube every 8 hours Lise Lantigua PA 75 mg at 423 [COMPLETED] albumin, human (BUMINATE) 5 % injection 12.5 Gram 12.5 Gram IV ONE time only Karlie Hamilton MD Stopped at 06/15/25 1321 midazolam (VERSED) injection 1 mg 1 mg IV every 4 hours PRN Lise Lantigua PA 1 mg at 06/15/25 1705 norepinephrine bitartrate-D5W (LEVOPHED) 8 mg/250 mL (32 mcg/mL) infusion 0-0.2 mcg/kg/min IV titrate Karlie Hamilton MD Stopped at 06/16/25 0415 [COMPLETED] heparin injection 1,200 Units 15 Units/kg (Adjusted) IV ONE time only Karlie Hamilton MD 1,200 Units at 06/15/25 1855 midazolam (VERSED) 150 mg/30 mL (5 mg/mL) syringe 0-6 mg/hr IV titrate Ebony Lopez MD 0.4 mL/hr at 06/15/25 193 2 mg/hr at 06/15/251935 [COMPLETED] potassium BICARBONATE-citric acid (EFFER-K) tablet 40 mEq 40 mEq Oral ONE time only Karlie Hamilton MD 40 mEq at 06/15/252106 sodium chloride flush injection 10 mL 10 mL IV every 12 hours (2 times daily) Prince Farr MD 10 mL at 06/16/25 0943 sodium chloride flush injection 10 mL 10 mL IV see admin instructions Prince Farr MD sodium chloride 0.9 % flush bag 25 mL 25 mL IV see admin instructions Prince Farr MD dextrose 5 % in water 250 mL flush bag 25 mL 25 mL IV see admin instructions Prince Farr MD atropine injection 0.5 mg 0.5 mg IV every 5 minutes PRN Prince Farr MD nitroglycerin (NITROSTAT) tablet 0.4 mg 0.4 mg Sublingual every 5 minutes PRN Prince Farr MD polyethylene glycol (MIRALAX) packet 17 Gram 17 Gram Oral BID Karlie Hamilton MD 17 Gram at 06/16/25 0926 heparin in 0.45% NaCl 25,000 unit/250 mL infusion 15 Units/kg/hr (Adjusted) IV titrate Marc Hamilton MD 12.5 mL/hr at 06/16/25 0719 15 Units/kg/hr at 06/16/25 0719 [DISCONTINUED] vancomycin (VANCOCIN) 1,000 mg in sodium chloride 0.9 % 250 mL IVPB 1,000 mg IV every 12 hours Karlie Hamilton MD Stopped at 06/15/25 0009 [DISCONTINUED] midazolam (VERSED) injection 4 mg 4 mg IV every 4 hours PRN Karlie Hamilton MD 4 mg at 06/15/25 0508 [DISCONTINUED] QUEtiapine (SEROquel) tablet 50 mg 50 mg NG Tube every 8 hours Karlie Hamilton MD 50mg at 06/15/25 0459 ondansetron (ZOFRAN) 4 mg/2 mL injection 4 mg 4 mg IV every 6 hours PRN Zenaida Michel MD sennosides-docusate sodium (SENNA-S) 8.6-50 mg per tablet 1 Tablet 1 Tablet NG Tube BID Zenaida Michel MD 1 Tablet at 06/16/25 0926 [DISCONTINUED] cefePIME (MAXIPIME) 2,000 mg in sodium chloride 0.9% 50 mL IVPB (MBP) 2,000 mg IV every 8 hours Zenaida Michel MD Stopped at 06/15/25 0533 sodium chloride flush injection 10 mL 10 mL IV every 12 hours (2 times daily) Prince Farr MD 10 mL at 06/16/25 0943 sodium chloride flush injection 10 mL 10 mL IV see admin instructions Prince Farr MD 10 mL at 06/13/25 2131 sodium chloride 0.9 % flush bag 25 mL 25 mL IV see admin instructions Prince Farr MD dextrose 5 % in water 250 mL flush bag 25 mL 25 mL IV see admin instructions Prince Farr MD naloxone (NARCAN) 0.4 mg/mL injection 0.1-0.4 mg 0.1-0.4 mg IV see admin instructions Prince Farr MD aspirin (SNOW CHEWABLE) chewable tablet 81 mg 81 mg Oral daily Prince Farr MD 81 mg at 926 ticagrelor (BRILINTA) tablet 90 mg 90 mg Oral BID Prince Farr MD 90 mg at 06/16/25925 rosuvastatin (CRESTOR) tablet 20 mg 20 mg Oral daily BEDTIME Prince Farr MD 20 mg at 06/15/252005 [Held by Provider] furosemide (LASIX) injection 40 mg 40 mg IV BID, 7 hours apart Prince Farr MD naloxone (NARCAN) 0.4 mg/mL injection 0.1-0.4 mg 0.1-0.4 mg IV see admin instructions Love Gonzalez NP replacement reminder - Potassium 1 Each See Admin Instructions see admin instructions Love Gonzalez NP replacement reminder-Magnesium 1 Each See Admin Instructions see admin instructions Love Gonzalez NP replacement reminder - Phosphorus 1 Each See Admin Instructions see admin instructions Love Gonzalez NP replacement reminder-Calcium 1 Each See Admin Instructions see admin instructions Love Gonzalez NP famotidine PF (PEPCID) 20 mg in sodium chloride 0.9% 10 mL injection 20 mg IV BID Love Gonzalez NP 20 mg at 06/16/2526 SODIUM BICARBONATE 1 MEQ/ML (8.4 %) INTRAVENOUS SOLUTION (CABINET OVERRIDE) sodium chloride 0.9 % bolus solution 250 mL 250 mL IV ONE time only Charles Magana MD amiodarone in dextrose (ISO-OSM) (NEXTERONE) 360 mg/200 mL (1.8 mg/mL) IV infusion 0.5 mg/min IV continuous Zenaida Michel MD 16.67 mL/hr at 06/16/25 0424 0.5 mg/min at 06/16/25 0424 HYDROmorphone (PF) in NS (DILAUDID) 30 mg/30 mL (1 mg/mL) intravenous solution 0-1.2 mg/hr IV titrate Karlie Hamilton MD 1.2 mL/hr at 06/16/25 0702 1.2 mg/hr at 06/16/25 0702 dextrose 5 % - sodium chloride 0.9 % infusion IV see admin instructions Zenaida Michel MD dextrose 50% (D50) syringe 12.5 Gram 12.5 Gram IV see admin instructions Zenaida Michel MD dextrose 50% (D50) syringe 25 Gram 25 Gram IV see admin instructions Zenaida Michel MD glucagon HCL 1 mg/mL injection 1 mg 1 mg IM see admin instructions Zenaida Michel MD HEPARIN (PORCINE) 1,000 UNIT/ML INJECTION SOLUTION (CABINET OVERRIDE) sodium chloride flush injection 10 mL 10 mL IV BID Zenaida Michel MD 10 mL at 06/16/25 0943 sodium chloride flush injection 10 mL 10 mL IV BID Charles Magana MD 10 mL at 06/16/25 0943 [DISCONTINUED] EPINEPHrine 4 mg/250 mL (16 mcg/mL) in sodium chloride 0.9% infusion 0-0.8 mcg/kg/min IV titrate Prince Farr MD Stopped at 06/13/25 2154 [DISCONTINUED] norepinephrine bitartrate-D5W (LEVOPHED) 8 mg/250 mL (32 mcg/mL) infusion 0-0.2 mcg/kg/min IV titrate Prince Farr MD Stopped at 06/15/25 1200 [DISCONTINUED] vasopressin (VASOSTRICT) 20 Units in dextrose 5 % 100 mL infusion 0.05 Units/min IV continuous Zenaida Michel MD Stopped at 06/14/25 0055 [DISCONTINUED] VANCOMYCIN CONSULT TO PHARMACY See Admin Instructions see admin instructions Zenaida Michel MD Current Facility-Administered Medications Medication dexmedeTOMIDine in dextrose 5% (PRECEDEX) 400 mcg/100 mL (4 mcg/mL) infusion dextrose 5 % - sodium chloride 0.9 % infusion insulin lispro (HumaLOG,ADMELOG) injection 0-18 Units cefTRIAXone (ROCEPHIN) 2,000 mg in sodium chloride 0.9% 50 mL IVPB (MBP) QUEtiapine (SEROquel) tablet 75 mg midazolam (VERSED) injection 1 mg norepinephrine bitartrate-D5W (LEVOPHED) 8 mg/250 mL (32 mcg/mL) infusion midazolam (VERSED) 150 mg/30 mL (5 mg/mL) syringe sodium chloride flush injection 10 mL sodium chloride flush injection 10 mL sodium chloride 0.9 % flush bag 25 mL dextrose 5 % in water 250 mL flush bag 25 mL atropine injection 0.5 mg nitroglycerin (NITROSTAT) tablet 0.4 mg polyethylene glycol (MIRALAX) packet 17 Gram heparin in 0.45% NaCl 25,000 unit/250 mL infusion ondansetron (ZOFRAN) 4 mg/2 mL injection 4 mg sennosides-docusate sodium (SENNA-S) 8.6-50 mg per tablet 1 Tablet sodium chloride flush injection 10 mL sodium chloride flush injection 10 mL sodium chloride 0.9 % flush bag 25 mL dextrose 5 % in water 250 mL flush bag 25 mL naloxone (NARCAN) 0.4 mg/mL injection 0.1-0.4 mg aspirin (SNOW CHEWABLE) chewable tablet 81 mg ticagrelor (BRILINTA) tablet 90 mg rosuvastatin (CRESTOR) tablet 20 mg [Held by Provider] furosemide (LASIX) injection 40 mg naloxone (NARCAN) 0.4 mg/mL injection 0.1-0.4 mg replacement reminder - Potassium replacement reminder-Magnesium replacement reminder - Phosphorus replacement reminder-Calcium famotidine PF (PEPCID) 20 mg in sodium chloride 0.9% 10 mL injection SODIUM BICARBONATE 1 MEQ/ML (8.4 %) INTRAVENOUS SOLUTION (CABINET OVERRIDE) sodium chloride 0.9 % bolus solution 250 mL amiodarone in dextrose (ISO-OSM) (NEXTERONE) 360 mg/200 mL (1.8 mg/mL) IV infusion HYDROmorphone (PF) in NS (DILAUDID) 30 mg/30 mL (1 mg/mL) intravenous solution dextrose 5 % - sodium chloride 0.9 % infusion dextrose 50% (D50) syringe 12.5 Gram dextrose 50% (D50) syringe 25 Gram glucagon HCL 1 mg/mL injection 1 mg HEPARIN (PORCINE) 1,000 UNIT/ML INJECTION SOLUTION (CABINET OVERRIDE) sodium chloride flush injection 10 mL sodium chloride flush injection 10 mL Consultants: IP CONSULT TO CARDIAC REHAB IP CONSULT TO SOCIAL WORK IP CONSULT TO SOFTWARE TOOLS ENGINEER IP CONSULT TO CARDIAC REHAB IP CONSULT TO NUTRITION SERVICES OBJECTIVE: Temp (24hrs), Av.1 ??F (37.3 ??C), Min:98.2 ??F (36.8 ??C), Max:100.1 ??F (37.8 ??C) Intake/Output Summary (Last 24 hours) at 06/16/2025 1029 Last data filed at 06/16/2025 0900 Gross per 24 hour Intake 2750.35 ml Output 2705 ml Net 45.35 ml Last documented weight: Weight: 107.1 kg (236 lb 1.8 oz) (06/16/25 0300) LABORATORY: Recent Labs 06/13/25 2334 06/14/25 0308 06/15/25 0403 06/15/25 1710 06/16/25 0309 WBC 13.2* 11.6* 12.5* 12.2* 11.7* HGB 8.7* 8.8* 8.2* 7.8* 8.7* HCT 26.0* 26.5* 24.8* 23.6* 27.2* PLT 118* 124* 92* 92* 89* Recent Labs 06/14/25 0308 06/14/25 2005 06/15/25 0403 06/15/25 1948 06/16/25 0309 NA 138 137 138 139 139 K 5.0 4.1 4.1 3.8 3.6 CL 104 102 103 104 104 CO2 25 23 23 23 21* CA 8.3* 8.7* 8.8 8.3* 8.5* BUN 27* 30* 31* 32* 30* CREAT 0.91 0.91 0.85 0.89 0.88 GLUCOSE 101* 129* 159* 173* 111* Recent Labs 06/14/25 0308 06/15/25 0403 06/16/25 0309 TOTALPROTEIN 5.4* 5.5* 5.8* ALBUMIN 2.8* 2.9* 3.0* BILITOTAL 0.6 0.7 0.6 ALKPHOS 64 66 88 AST 178* 104* 63* ALT 103* 71* 55* No results for input(s): INR , PT in the last 72 hours. Invalid input(s): PTT No results for input(s): BASETROP , 2HRTROP , DELTA , 6HRTROP in the last 72 hours. Chart reviewed Other Results: Results for orders placed or performed during the hospital encounter of 06/12/25 EKG 12-LEAD [address] [address] Test Date: 2025-06-15 Pat Name: ISAAC FRANKLIN Department: 12 Room: [address] [place] [address] Gender: Male Compliance Representative: [id number] : 1960 Requested By: Order Number: [id number] Reading MD: Measurements Intervals Malin Rate: 78 P: -24 GA: 400 QRS: 47 QRSD: 94 T: 225 QT: 352 QTc: 401 Interpretive Statements Sinus rhythm with 1st degree AV block Low voltage QRS Cannot rule out Anterior infarct, age undetermined Abnormal ECG ASSESSMENT AND PLAN: Primary Discharge Diagnosis: ST elevation myocardial infarction involving right coronary artery Other Active medical issues also addressed during this admission: Active Hospital Problems Diagnosis Cardiogenic shock (CMS/HCC) Laboratory test Patient receiving extracorporeal membrane oxygenation (ECMO) Complete heart block (CMS/HCC) ST elevation myocardial infarction involving right coronary artery Cardiac arrest with ventricular fibrillation (CMS/HCC) CHB (complete heart block) ST elevation myocardial infarction (STEMI) Acute pulmonary edema (CMS/HCC) Acute hypoxemic respiratory failure (CMS/HCC) Lactic acidosis Resolved Hospital Problems No resolved problems to display. 65-year-old male with past medical history of tobacco use, admitted with inferior STEMI complicatedwith refractory V-fib arrest, cardiogenic shock, complete heart block, requiring advanced mechanical circulatory support including VA ECMO, IABP, TVP. - Remains critical however clinically improving, needing ECMO support, IABP support, TVP. Pressor requirement coming down in the last 24 hours. Plan to continue to titrate down the ECMO support whilecontinuing IABP support. - Incessant VT VF during the STEMI however overnight did not have recurrence. Continue amiodarone drip. Now off of lidocaine drip. - Inferior STEMI s/p PCI proximal to mid RCA; cardiogenic shock, LVEF 25%, clinically hemodynamics are moving in a good direction and patient is not needing much pressor/inotrope support. Still needing ECMO support which we are slowly titrating down. Continue IABP support and temporary pacer in place. Continue uninterrupted DAPT. Also needing heparin while on mechanical circulatory support. -Access site care per protocol. Cardiology will continue to follow closely. Current Facility-Administered Medications Medication dexmedeTOMIDine in dextrose 5% (PRECEDEX) 400 mcg/100 mL (4 mcg/mL) infusion dextrose 5 % - sodium chloride 0.9 % infusion insulin lispro (HumaLOG,ADMELOG) injection 0-18 Units cefTRIAXone (ROCEPHIN) 2,000 mg in sodium chloride 0.9% 50 mL IVPB (MBP) QUEtiapine (SEROquel) tablet 75 mg midazolam (VERSED) injection 1 mg norepinephrine bitartrate-D5W (LEVOPHED) 8 mg/250 mL (32 mcg/mL) infusion midazolam (VERSED) 150 mg/30 mL (5 mg/mL) syringe sodium chloride flush injection 10 mL sodium chloride flush injection 10 mL sodium chloride 0.9 % flush bag 25 mL dextrose 5 % in water 250 mL flush bag 25 mL atropine injection 0.5 mg nitroglycerin (NITROSTAT) tablet 0.4 mg polyethylene glycol (MIRALAX) packet 17 Gram heparin in 0.45% NaCl 25,000 unit/250 mL infusion ondansetron (ZOFRAN) 4 mg/2 mL injection 4 mg sennosides-docusate sodium (SENNA-S) 8.6-50 mg per tablet 1 Tablet sodium chloride flush injection 10 mL sodium chloride flush injection 10 mL sodium chloride 0.9 % flush bag 25 mL dextrose 5 % in water 250 mL flush bag 25 mL naloxone (NARCAN) 0.4 mg/mL injection 0.1-0.4 mg aspirin (SNOW CHEWABLE) chewable tablet 81 mg ticagrelor (BRILINTA) tablet 90 mg rosuvastatin (CRESTOR) tablet 20 mg [Held by Provider] furosemide (LASIX) injection 40 mg naloxone (NARCAN) 0.4 mg/mL injection 0.1-0.4 mg replacement reminder - Potassium replacement reminder-Magnesium replacement reminder - Phosphorus replacement reminder-Calcium famotidine PF (PEPCID) 20 mg in sodium chloride 0.9% 10 mL injection SODIUM BICARBONATE 1 MEQ/ML (8.4 %) INTRAVENOUS SOLUTION (CABINET OVERRIDE) sodium chloride 0.9 % bolus solution 250 mL amiodarone in dextrose (ISO-OSM) (NEXTERONE) 360 mg/200 mL (1.8 mg/mL) IV infusion HYDROmorphone (PF) in NS (DILAUDID) 30 mg/30 mL (1 mg/mL) intravenous solution dextrose 5 % - sodium chloride 0.9 % infusion dextrose 50% (D50) syringe 12.5 Gram dextrose 50% (D50) syringe 25 Gram glucagon HCL 1 mg/mL injection 1 mg HEPARIN (PORCINE) 1,000 UNIT/ML INJECTION SOLUTION (CABINET OVERRIDE) sodium chloride flush injection 10 mL sodium chloride flush injection 10 mL Critical care time: 40 min excluding discussion with the family/procedure time. The high probability of sudden, clinically significant deterioration in the patient's condition required the highest level of my preparedness to intervene urgently. The services I provided to this patient were to treat and/or prevent clinically significant deterioration that could result in decomposition or . Services included the following: chart data review, reviewing nursing notes and/or old charts, documentation time, organizational consultant collaboration regarding findings and treatment options, medication orders andmanagement, direct patient care, vital sign assessments and ordering, interpreting and reviewing diagnostic studies/lab tests. It did not include time spent performing other billable procedures. Assessment & plan and other portions of this note may have been copied from prior notes /templates however appropriate and necessary changes have been made to reflect patient's current medical condition, clinical course and medical decisions are being made based on guidelines and risk-benefit discussion with patient/family members and/or other providers. Portions of this document were createdthrough the use of iogynfitter helper software. Effort has been made to ensure accuracy of the mems engineer. Any obvious errors or omissions should be clarified with the author of the document. Avni Ramirez MD * Anyi Jasso, STOCK PLAN ADMINISTRATOR - 06/16/2025 8:11 AM CDT Isaac Franklin is a 65-year-old male with a history of tobacco use who was admitted with an inferior ST elevation myocardial infarction involving the right coronary artery, complicated by refractoryventricular fibrillation cardiac arrest, cardiogenic shock, and complete heart block, requiring advanced mechanical circulatory support including VA ECMO and intra-aortic balloon pump. Problem-Oriented Hospitalization Summary ST Elevation Myocardial Infarction (STEMI) involving Right Coronary Artery He presented with two days of worsening chest pain and was found to have inferior ST elevation and lateral ST depression on EKG. He sustained a ventricular fibrillation arrest at the outside hospital, requiring defibrillation and CPR, and was transferred for emergent intervention. Cardiac catheterization revealed 100% thrombotic occlusion of the proximal right coronary artery, which was treated with drug-eluting stents. He subsequently developed acute in-stent thrombosis with 100% occlusion, managed with IVUS- guided balloon angioplasty and repeat IABP placement. Serial ECGs showed persistent inferior Q waves and ST changes, with troponin levels downtrending after intervention. Cardiac Arrest with Ventricular Fibrillation and Refractory Arrhythmia He experienced multiple episodes of ventricular fibrillation cardiac arrest both prior to and aftertransfer, requiring prolonged resuscitation, multiple rounds of defibrillation, and antiarrhythmic therapy including amiodarone and lidocaine. Overdrive pacing and temporary transvenous pacemaker were utilized for refractory arrhythmia and complete heart block. After persistent arrhythmia and hemodynamic instability, he underwent emergent VA ECMO cannulation for circulatory support. Cardiogenic Shock He remained in severe cardiogenic shock, requiring high-dose vasopressors (epinephrine, norepinephrine, vasopressin) and mechanical support with intra- aortic balloon pump and VA ECMO. Hemodynamic monitoring demonstrated low cardiac index and elevated filling pressures. Vasopressors and inotropes were weaned off as his condition stabilized on ECMO and IABP. Complete Heart Block (CHB) He developed complete heart block during his initial presentation and intervention, managed with a temporary transvenous pacemaker, which was tested and settings adjusted throughout the hospitalization. No sustained arrhythmia or pacemaker needs were noted after stabilization. Acute Pulmonary Edema and Acute Hypoxemic Respiratory Failure He developed acute pulmonary edema and hypoxemic respiratory failure, requiring intubation, mechanical ventilation, and lung protective strategies. Diuresis was initiated as tolerated, with improvement in oxygenation following bronchoscopy for mucus plugging and aggressive fluid management. Lactic Acidosis He had severe lactic acidosis (peak lactate 11.5 mmol/L) during cardiac arrest and shock, which resolved with advent of perfusion and mechanical support; subsequent lactate levels normalized. Patient Receiving Extracorporeal Membrane Oxygenation (ECMO) He underwent emergent bedside VA ECMO cannulation for refractory cardiac arrest and shock, with femoral arterial and venous cannulation and distal perfusion cannula placement to prevent limb ischemia. ECMO flows and sweep gas were titrated to maintain adequate hemodynamics and gas exchange, and daily hemolysis labs were monitored. Plans included gradual weaning of ECMO support as tolerated. Infectious Complications He developed pneumonia with positive PCR for Streptococcus pneumoniae and Haemophilus influenzae, treated empirically with vancomycin and meropenem for 72 hours due to semisterile ECMO cannulation, then narrowed to ceftriaxone. Vancomycin was discontinued after completion of therapy. Renal and Hepatic Function He had non-oliguric acute kidney injury with stable creatinine and adequate urine output, managed with gentle diuresis and electrolyte monitoring. Liver function tests were transiently elevated, likely secondary to ischemic/congestive hepatopathy, and trended down with clinical improvement. Laboratory Test Monitoring Laboratory tests were monitored closely for anticoagulation management, infection, and organ function throughout the hospitalization. Nutrition He was at risk for malnutrition due to intubation and critical illness, and tube feeding was initiated and advanced per dietitian recommendations. Summary In summary, he was admitted with an inferior STEMI complicated by refractory ventricular fibrillation cardiac arrest, cardiogenic shock, and complete heart block, requiring advanced mechanical and pharmacologic support including VA ECMO, IABP, temporary pacemaker, and multiple antiarrhythmics. He underwent PCI and repeat angioplasty for acute in-stent thrombosis, developed pneumonia managed with broad-spectrum antibiotics, and received supportive care for multiorgan dysfunction. He remained critically ill but stabilized on mechanical support, with ongoing plans for weaning and further management. Norma Jasso RN, MSN, STOCK PLAN ADMINISTRATOR- Cardiothoracic Surgery Cosigned by Kim Penny MD at 06/20/2025 5:15 PM CDT * Rosa Martins, RD - 06/15/2025 1:22 PM CDT Nutritional Status/Recommendations/Plan for Follow up: Received request from felting machine operator helper to advance TF today. Pt is on precedex, remains off pressors. Noted K level has improved and Phos is now low, will modify TF as well. -Modify TF to Vital AF at 20mL/hr, advance by 10mL q6h to goal of 60mL/hr. Provides 1728 kcal, 108 g protein, 159 g carb, 1168 ml free water daily Estimated Needs: Estimated Energy Target: 1294-6655 (06/14/25899) Estimated Protein Target: 105-140 (06/14/25899) Estimated Fluid Target : 1750 (06/14/25899) Nutrition Energy Formula: Calories per kilogram (06/14/25899) Weight Used for Formula: [place] weight (06/14/25899) Current diet/nutrition support: DIET NPO Strict DIET TUBE FEEDING Renal High Protein Carb Consistent 1.8,; No,; Orogastric/Nasogastric; Feeding Method: Continuous; Initial Volume in mL/hour: 10; Goal Volume in mL/hour: 20; Feeding Advancement: 10mL q6h Food/Meal: NPO (06/14/25 0700), Weight status/changes: Weight: 105.3 kg (232 lb 2.3 oz) (06/14/25 0300) Last seven weights (if available) from 05/18/25 1323 to 06/15/25 1322 (Last 7 readings): Weight Weight Method 06/14/25 0300 105.3 kg (232 lb 2.3 oz) Actual 06/13/25 06 107.4 kg (236 lb 12.4 oz) Actual Admission:Weight: 107.4 kg (236 lb 12.4 oz) (06/13/25599)Weight Method: Actual (06/13/25599) Body mass index is 35.3 kg/m??. [place] body weight: 68.4 kg (150 lb 12.7 oz) Adjusted ideal body weight: 83.2 kg (183 lb 5.4 oz) Nutrition Focused Exam Physical Findings- Summary: Malnutrition Nutrition Diagnosis: (at risk) (06/14/25899) Subcutaneous Fat Loss Assessment: No findings (06/14/25899) Muscle Wasting Assessment: No findings (06/14/25899) Edema: Normal contour with a barely perceptible pit (no findings) (06/14/25899) Hand Refrigeration Engine Operator: Unable to assess (sedated) (06/14/25899) Percentage of Energy: Other (see comments) (meeting <50% estimated needs ~2 days) (06/14/25899) Percentage of Weight Loss: No history of significant wt loss (06/14/25899) Additional assessment indices: Evaristo Score: 12 (06/15/25699) Last Bowel Movement (mm/dd/yyyy): 06/15/25 (06/15/25 010) Stool Consistency - Reference [place] Stool Chart: soft - (type 4/5) (06/15/2599) Bowel Sounds: All Quadrants: hyperactive (06/15/25699) Allergies No Known Allergies Labs: Lab Results Component Value Date/Time NA 138 06/15/2025 04:03 AM K 4.1 06/15/2025 04:03 AM CL 103 06/15/2025 04:03 AM CO2 23 06/15/2025 04:03 AM CA 8.8 06/15/2025 04:03 AM BUN 31 (H) 06/15/2025 04:03 AM CREAT 0.85 06/15/2025 04:03 AM GLUCOSE 159 (H) 06/15/2025 04:03 AM TOTALPROTEIN 5.5 (L) 06/15/2025 04:03 AM ALBUMIN 2.9 (L) 06/15/2025 04:03 AM BILITOTAL 0.7 06/15/2025 04:03 AM ALKPHOS 66 06/15/2025 04:03 AM AST 104 (H) 06/15/2025 04:03 AM ALT 71 (H) 06/15/2025 04:03 AM ANIONGAP 12 06/15/2025 04:03 AM No results found for: HGBA1C , [id number] Lab Results Component Value Date/Time RDW 14.2 06/15/2025 04:03 AM No results found for: CRP , CRPHS Lab Results Component Value Date/Time MG 2.2 06/15/2025 04:03 AM Lab Results Component Value Date/Time CA 8.8 06/15/2025 04:03 AM PO4 2.0 (L) 06/15/2025 04:03 AM No results found for: UKSW162 , VITD25 , [id number] , [id number] , [id number] , [id number] , [id number] , VITAMINDTO , [id number] No results found for: CIUEEDSV14 No results found for: FOLATE , FOLATERBC No results found for: ZINC * Prince Farr MD - 06/15/2025 12:31 PM CDT Cardiology Progress Note Patient: Isaac Franklin / 65 y.o. / male : 1960 Today's Date: 06/15/2025 SUBJECTIVE: Mr. Franklin continues to be intubated and sedated. Current medicines reviewed. Chart reviewed. Recent Cardiac Testing: OBJECTIVE: Pulse 67 Temp 99.4 ??F (37.4 ??C) (Core) Resp (!) 7 Wt 105.3 kg (232 lb 2.3 oz) SpO2 92% BMI 35.30 kg/m?? The range of BP in the last 24 hours is:BP: -- Intake/Output Summary (Last 24 hours) at 06/15/2025 1240 Last data filed at 06/15/2025 1200 Gross per 24 hour Intake 2236.83 ml Output 2635 ml Net -398.17 ml General appearance: critically ill. Neck: no jugular venous distension Lungs: Mild bilateral crackles Heart: S1 and S2 normal. 1/6 systolic murmur Abdomen: soft and non-tender. Extremities: trace to 1+ edema. No access site complication. Minimal bruising at echo access site. Data Review: Laboratory & imaging data reviewed CBC: Recent Labs 06/12/25 1736 06/13/25 0404 06/13/25 2334 06/14/25 0308 06/15/25 0403 WBC 19.4* 15.4* 13.2* 11.6* 12.5* HGB 10.8* 9.9* 8.7* 8.8* 8.2* PLT 204 154 118* 124* 92* BMP: Recent Labs 06/12/25 1342 06/12/25 1445 06/12/25 1736 06/13/25 0404 06/14/25 0308 06/14/25 2005 06/15/25 0403 GLUCOSE 276* -- 229* 149* 101* 129* 159* BUN 18 -- 20 24* 27* 30* 31* CREAT 1.05 -- 1.03 0.86 0.91 0.91 0.85 NA 141 -- 143 141 138 137 138 K 3.2* 3.3* 4.0 4.4 5.0 4.1 4.1 CO2 17* -- 20* 24 25 23 23 MG 2.5* -- 2.1 1.9 2.4 2.2 2.2 TROPONIN T, BASELINE GEN Date Value Ref Range Status 06/11/2025 6 <=15 ng/L Final Cardiac telemetry monitoring: Sinus rhythm with rate 50-60s. No arrhythmia or pacemaker needs. ASSESSMENT: Principal Problem: ST elevation myocardial infarction involving right coronary artery Active Problems: Cardiogenic shock (CMS/HCC) Complete heart block (CMS/HCC) Cardiac arrest with ventricular fibrillation (CMS/HCC) CHB (complete heart block) ST elevation myocardial infarction (STEMI) Acute pulmonary edema (CMS/HCC) Acute hypoxemic respiratory failure (CMS/HCC) Lactic acidosis Laboratory test Patient receiving extracorporeal membrane oxygenation (ECMO) Incessant VT/VF. Refractory to multiple defibrillations and antiarrhythmic 06/13. No recurrence. 06/14: PVCs present. No sustained arrhythmia 06/15: No arrhythmia Inferior STEMI s/p primary PCI of proximal to mid right coronary artery 06/12- Primary PCI of RCA 06/13- Mild ST segment changes. Repeat angio showed in stent thrombosis. This was treated with IVUSguided balloon angioplasty. 06/15: Continues to have downtrending troponin Cardiogenic shock Cardiomyopathy, LVEF 25% S/p VA ECMO cannulation on 06/12 06/13- @4400 RPM with ~4L per minute support. 06/14- @4500 RPM with ~5.2 L/min support. Off norepinephrine, epinephrine and vasopressin. PA catheter hemodynamics reviewed. Cardiac index 1.2. CVP 5, PA pressure 19/9. 06/15: PA catheter hemodynamics reviewed. CI 1.3, PA pressure 22/11 mmHg. ECMO flow reduced to 3300RPM S/p IABP placement. 06/12- Appropriately augmenting. Appropriate position on chest X ray. 06/13- Appropriate augmentation. Appropriate position chest x-ray 06/14- Appropriate augmentation. Appropriate position on chest X ray. 06/14- Appropriate augmentation. Appropriate position on chest X ray Complete heart block Currently has temporary pacemaker. Tested and settings adjusted. 06/13- pacemaker rate was at 70s. Readjusted to 50 bpm. 06/14- pacemaker set at VVI 50bpm, output 18 bpm. Retested. Settings changed to VVI 40bpm and output 2mA. No loss of capture at 1 mA 06/15: Tested and appropriate functioning. Current settings VVI, 40bpm, 2mA History of tobacco use Recommendations/Plan; He has continued to have downtrending troponin. Continue trending as ST segment assessment not be unreliable at times. He was treated with 18 hours of Aggrastat. Continue aspirin 81 mg daily and ticagrelor 90 mg twice daily. He is also on heparin drip with mechanical circulatory support. Continue amiodarone 0.5 mg/min. He is now off lidocaine. Continue hemodynamic support with mechanical and inotropic support as needed. Plan to consider weaning off ECMO as tolerated. Continue atherosclerotic risk factor modification Continue diuresis as needed. Discussed with Dr. Hamilton. Prince Yordan MD 06/15/2025 12:40 PM Critical care time: 35 min excluding discussion with the family/procedure time. The high probability of sudden, clinically significant deterioration in the patient's condition required the highest level of my preparedness to intervene urgently. The services I provided to this patient were to treat and/or prevent clinically significant deterioration that could result in decomposition or . Services included the following: chart data review, reviewing nursing notes and/or old charts, documentation time, organizational consultant collaboration regarding findings and treatment options, medication orders andmanagement, direct patient care, vital sign assessments and ordering, interpreting and reviewing diagnostic studies/lab tests. It did not include time spent performing other billable procedures. Portions of the record may have been created with voice recognition software. Occasional wrong-wordor `[id number]?? substitutions may have occurred due to the inherent limitations of voice recognition software. Read the chart carefully and recognize, using context, where substitutions have occurred. Please call if questions arise. Some part of the chart may have been copied forward. Copied forward data have been reviewed and and edited accordingly. Prince Yordan MD Interventional and Structural Customer Care Manager * Karlie Hamilton MD - 06/15/2025 11:07 AM CDT CRITICAL CARE MEDICINE DAILY PROGRESS NOTE PCP: No primary care provider on file. Hx: Isaac Franklin is a 65 y.o. male admitted 06/12/2025 after presenting to an outside ED with a chief complaint of chest pain. Past medical history is limited (ED documentation states patient denied medical problems) but patient is a known tobacco user. On the day prior to admission the patient presented to [facility] with a chief complaint of chest pain which started approximately 2 days prior to presentation and had progressively worsened. The patient noted associated nausea and denies radiation. While awaiting further evaluation at the OSH the patient sustained a VF arrest which was treated with ACLS and achieved ROSC after 2 rounds of resuscitation. EKG revealed inferior ST elevation and lateral ST depression. 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 LHC revealed 100% thrombus of the proximal RCA which was managed with AMBER. The patient warranted IABP for support and was transferred to ICU. Upon arrival to ICU the patient experienced VF arrest. ACLS was initiated. ROSC was intermittently achieved multiple times during resuscitative efforts but the patient continued to return to VF. The decision wasmade to cannulate for ECMO. This was completed and the patient was placed on VA ECMO Pertinent PMHx: Past Medical History: Diagnosis Date Patient denies medical problems Current Care Plan Summary: 65-year-old male admitted to the ICU on 06/12/2025 with inferior STEMI, VF arrest, cardiogenic shock s/p left heart cath with AMBER to the RCA and placement of IABP further complicated by development of refractory VT requiring emergent bedside VA cannulation on 06/12 On 06/13, EKG showed worsening ST elevations and he was taken back to the Intramural Director and found to have acute in-stent thrombosis of the RCA with 100% occlusion now s/p IVUS guided balloon angioplasty and successful removal and reinsertion of IABP There was concern for poor absorption of DAPT and he was started on Aggrastat gtt. Off pressors and ionotropes since 06/14 PAC parameters reviewed ABG and ECMO parameters reviewed. See separate ECMO management note IABP 1:1. Chest x-ray reviewed. Positioning appropriate. Augmenting well Troponins are downtrending. Continue aspirin, Brilinta Continue heparin gtt No recurrence of VT Continue amiodarone gtt. Lidocaine gtt discontinued 06/14 TTE with EF 25% Continue diuresis Renal function remains stable LFTs are downtrending Precedex for comfort. Continue Seroquel 3 times daily due to agitation with sedation weaning Increase TF to goal Transition to SQ insulin Infectious workup notable for strep pneumo and haemophilus influenza on pneumonia pathogen PCR Other cultures negative As patient was cannulated during eCPR, semisterile procedure - continued broad spectrum coverage for 72 hours. Narrow to CTX today ICU timeline: 06/12: Admitted to the ICU, cardiac arrest, eCPR with pVA cannulation 06/13: Return to the Intramural Director for acute in-stent thrombosis of the RCA s/p angioplasty Major active problem list: Principal Problem: ST elevation myocardial infarction involving right coronary artery Active Problems: Cardiogenic shock (CMS/HCC) Complete heart block (CMS/HCC) Cardiac arrest with ventricular fibrillation (CMS/HCC) CHB (complete heart block) ST elevation myocardial infarction (STEMI) Acute pulmonary edema (CMS/HCC) Acute hypoxemic respiratory failure (CMS/HCC) Lactic acidosis Laboratory test Patient receiving extracorporeal membrane oxygenation (ECMO) Subjective: 24 hour events - as above Objective: Current vital signs Pulse 70, temperature 99.1 ??F (37.3 ??C), temperature source Core, resp. rate (!) 0, weight 105.3 kg (232 lb 2.3 oz), SpO2 98%. 24 hour BP and temperature range BP: -- Temp (24hrs), Av.5 ??F (37.5 ??C), Min:99 ??F (37.2 ??C), Max:99.7 ??F (37.6 ??C) Input/Output 06/13 1900 - 06/15 0659 In: 3606.3 [I.V.:2956.3] Out: 5180 [Urine:4980; Drains:200] PHYSICAL EXAM: General: Synchronous with the vent Neuro: Following commands off of sedation Cardiac: RRR Pulm: Coarse Abdomen: Soft Extremities: Warm Data Review: BMP: Recent Labs 06/13/25 0404 06/14/258 06/14/25200406/15/25 040 GLUCOSE 149* 101* 129* 159* BUN 24* 27* 30* 31* CREAT 0.86 0.91 0.91 0.85 NA 141 138 137 138 K 4.4 5.0 4.1 4.1 CL 107 104 102 103 CO2 24 25 23 23 ANIONGAP 10 9 12 12 MG 1.9 2.4 2.2 2.2 PO4 4.9* 3.0 -- 2.0* estimated creatinine clearance is 103.3 mL/min (by C-G formula based on SCr of 0.85 mg/dL). LFTs: Recent Labs 06/13/25 0404 06/14/2530706/15/25 040 ALKPHOS 62 64 66 ALT 125* 103* 71* AST 246* 178* 104* BILITOTAL 0.5 0.6 0.7 ALBUMIN 3.0* 2.8* 2.9* CBC: Recent Labs 06/13/25 2334 06/14/2530706/15/25 040 WBC 13.2* 11.6* 12.5* HGB 8.7* 8.8* 8.2* HCT 26.0* 26.5* 24.8* PLT 118* 124* 92* MCV 94.5 95.0 95.0 Coagulation: Recent Labs 06/14/25 1308 06/14/25200406/15/25 040 APTT 38.6* 49.1* 49.9* ABG: Lab Results Component Value Date/Time SPECIMENSOU Arterial 06/15/2025 09:50 AM SPECIMENSOU Arterial 06/15/2025 09:50 AM PHBLOODPOC 7.52 (H) 06/15/2025 09:50 AM [id number] 34 (L) 06/15/2025 09:50 AM PO2POC 82 06/15/2025 09:50 AM JCQ3NJB 28 (H) 06/15/2025 09:50 AM I7QMBOZP 98 06/15/2025 09:50 AM SYP3EKR 29 (H) 06/15/2025 09:50 AM BEPOC 5 (H) 06/15/2025 09:50 AM LACTATE 1.0 06/15/2025 09:50 AM PATIENTTEMP 37.0 06/15/2025 09:50 AM PHTEMPCORR 7.52 (H) 06/15/2025 09:50 AM [id number] 34 (L) 06/15/2025 09:50 AM [id number] 82 06/15/2025 09:50 AM Lactic acid: Lab Results Component Value Date/Time LACTATE 1.0 06/15/2025 09:50 AM LACTATE 1.0 06/15/2025 05:20 AM LACTATE 1.5 06/15/2025 12:05 AM LACTATE 11.5 (HH) 06/12/2025 05:42 AM Radiology: Relevant imaging reviewed Assessment and Plan Neuro/Psych: Acute metabolic encephalopathy in the setting of cardiac arrest and critical illness - Remains neuro intact - Agitated with sedation weaning. Continue Seroquel 3 times daily - Precedex for comfort Cardiovascular/Fluids: Inferior STEMI s/p AMBER to the RCA Refractory VT Cardiogenic shock with IABP and requiring mechanical circulatory support with peripheral VA ECMO Acute in-stent thrombosis of the RCA s/p balloon angioplasty - TTE on 06/22 EF 25% - Continue pVA ECMO, IABP - Troponin downtrending - Continue DAPT, heparin GTT - No recurrence of VT. Continue amiodarone gtt. - Trend electrolytes. Keep magnesium greater than 2 and K greater than 4 - TVP in place placed on backup rate Pulmonary: Acute hypoxic respiratory failure-multifactorial in etiology secondary to acute infectious process plus pulmonary edema - Continue lung protective ventilation - Diuresis GI/NUT: Continue TF SUP, Pepcid Renal/LYTES/Acid-Base: GÉNESIS -improving - Monitor urine output - Trend electrolytes - Diuresis Infectious Disease: Streptococcal pneumonia, H. influenzae pneumonia Completed meropenem and vancomycin for 72 hours in the setting of semisterile procedure Narrow to CTX today Hem/Onc/Coag: DVTp, heparin gtt Endocrine: Stress-induced/steroid-induced hyperglycemia Check HbA1C Transitioned to SSI on 06/14 Musculoskeletal/Skin: Routine ICU care Family communication: Ongoing updates Critical care time: 35 min * Karlie Hamilton MD - 06/15/2025 11:03 AM CDT [facility] ECMO Daily Management Note Isaac Franklin [id number] ECMO Day # 3 RPM Settin (06/13/25599) LPM Settin.08 (06/13/25599) Sweep Settin (06/13/25599) ECMO Data Most recent ABGs: Lab Results Component Value Date PUNCSITE No Charge 06/15/2025 PUNCSITE No Charge 06/15/2025 Lab Results Component Value Date/Time FIO2 70.0 06/15/2025 05:20 AM VENTMODE ECMO 06/15/2025 09:50 AM Lab Results Component Value Date/Time SPECIMENSOU Arterial 06/15/2025 09:50 AM SPECIMENSOU Arterial 06/15/2025 09:50 AM PHBLOODPOC 7.52 (H) 06/15/2025 09:50 AM [id number] 34 (L) 06/15/2025 09:50 AM PO2POC 82 06/15/2025 09:50 AM AFO0DEB 28 (H) 06/15/2025 09:50 AM Z0WDZBDF 98 06/15/2025 09:50 AM YRX2FJI 29 (H) 06/15/2025 09:50 AM BEPOC 5 (H) 06/15/2025 09:50 AM LACTATE 1.0 06/15/2025 09:50 AM PATIENTTEMP 37.0 06/15/2025 09:50 AM PHTEMPCORR 7.52 (H) 06/15/2025 09:50 AM VYE0UIYVFR 34 (L) 06/15/2025 09:50 AM QW8AIHCSDA 82 06/15/2025 09:50 AM COMMGASESP R RADIAL 06/13/2025 11:52 AM COMMGASESP R RADIAL 06/13/2025 11:52 AM Vt Set (mL): 550 mL (06/15/25655) Set Rate (breaths/min): 12 bpm (06/15/25655) PEEP (cmH20): 10 cmH20 (06/15/25655) I have inspected the circuit and it does not show significant clot. Last documented vent settings Vt Set (mL): 550 mL (06/15/25655) Set Rate (breaths/min): 12 bpm (06/15/25655) PEEP (cmH20): 10 cmH20 (06/15/25655)Pulse 70, temperature 99.1 ??F (37.3 ??C), temperature sourceCore, resp. rate (!) 0, weight 105.3 kg (232 lb 2.3 oz), SpO2 98%. Physical Exam Temp (24hrs), Av.5 ??F (37.5 ??C), Min:99 ??F (37.2 ??C), Max:99.7 ??F (37.6 ??C) Intake/Output Summary (Last 24 hours) at 06/15/2025 1103 Last data filed at 06/15/2025 1016 Gross per 24 hour Intake 2355.1 ml Output 2850 ml Net -494.9 ml Last documented weight: Weight: 105.3 kg (232 lb 2.3 oz) (06/14/25 0300) Admit Wt: Weight: 107.4 kg (236 lb 12.4 oz) (06/13/25 0600) Neuro: Agitated with stimulation, moving all extremities, intermittently follows commands Lungs: Coarse Heart: RRR Abdomen: Soft Extremities: BL LE are warm Cannula: Venous: 25 Fr Left Femoral multi-stage venous drainage cannula Arterial: 19 Fr Left Femoral single stage arterial return cannula 6Fr Left SFA DPC IABP Right femoral artery Peripheral art line: R radial Laboratory data CBC: Recent Labs 06/13/25233306/14/2530706/15/25 040 WBC 13.2* 11.6* 12.5* HGB 8.7* 8.8* 8.2* HCT 26.0* 26.5* 24.8* PLT 118* 124* 92* BMP: Recent Labs 06/14/2530706/14/25200406/15/25 040 GLUCOSE 101* 129* 159* BUN 27* 30* 31* CREAT 0.91 0.91 0.85 NA 138 137 138 K 5.0 4.1 4.1 CL 104 102 103 CO2 25 23 23 CA 8.3* 8.7* 8.8 CXR: confirmed cannula positions, Venous in the RA appendage per cts will leave it in for now Assessment/Plan: Acute STEMI/ Inferior NC Cardiogenic Shock Recurrent Ventricular fibrillation Cardiac arrest Acute on chronic hypoxemic respiratory failure Intra-aortic balloon pump support - Acute STEMI/inferior NC with RCA occlusion status post emergent left heart cath RCA stent placement - Refractory V-fib arrest-emergent bedside VA ECMO cannulation - Severe cardiogenic shock - Severe acute hypoxemic respiratory failure secondary to acute pulmonary edema - Intra-aortic balloon pump for afterload reduction Adequate hemodynamics and gas exchange on the above ECMO flows Remains off ionotropes and vasopressors today Will wean ECMO flows to 3 - 3.5 L and trend lactic acid Decreased sweep and recheck blood gas Diurese Repeat echo with EF 20-25% Continue asa, brilinta Continue heparin gtt At this time patient does have adequate pulse pressure greater than 20 Daily hemolysis labs reviewed Discussed with cardiology Karlie Hamilton MD * Camilo De La Fuente PHARMACIST - 06/15/2025 10:54 AM CDT Pharmacokinetic Consult Sign-Off Note Noted that vancomycin has been discontinued on this patient. Per protocol, pharmacy will discontinue the consult to pharmacy and will sign off vancomycin monitoring. Please notify pharmacy if we can be of further assistance. Thank you for involving us in the care of this patient. PRECIOUS Benjamin * Anyi Jasso FNP - 06/15/2025 6:31 AM CDT Cardiac Surgery Dr. Penny 06/12/25: Procedures: A-V ECMO placement for cardiogenic shock FINDINGS: 19 fr arterial, 25 venous percutaneous ECMO cannula placed, 4 liers of pump flow Patient is s/p coronary angiogram Acute in-stent thrombosis of right coronary artery with 100% occlusion Successful IVUS guided balloon angioplasty with 4.5 mm NC balloon. Very small area of residual distal/apical RPDA thrombus Left ventricular end-diastolic pressure, 21 mmHg Successful removal and subsequent reinsertion of 40 cc IABP ASA/Aggrastat/Brilinta Hemodynamic Monitoring CVP: 10 mmHg (06/15/25 013) PAP: 34/18 (06/15/25129) MICKY: 24 mmHg (06/15/25129) ROUTE DELIVERER: 4 mL/min (06/15/25129) CCI: 1.8 L/min/m2 (06/15/25129) SVO2 (%): 67 % (06/15/25129) SVR: 1720 dynes-sec/cm5 (06/15/25129) Norma Jasso RN, MSN, STOCK PLAN ADMINISTRATOR- Cardiothoracic Surgery Cosigned by Kim Penny MD at 06/15/2025 10:17 AM CDT * Maria Isabel Sommers, PHARMACIST - 06/14/2025 11:20 AM CDT Vancomycin Consult to Pharmacy Current Antibiotic Therapies Vancomycin Day # 3 Also on cefepime Serum creatinine: 0.91 mg/dL 06/14/25 0308 Estimated creatinine clearance: 96.5 mL/min NOTE: This calculation is potentially inaccurate in acute and/or chronic kidney disease and over/under weight patients, and thus is only an estimation of renal function Assessment: Isaac Franklin is a 65 y.o. male who is currently receiving Vancomycin 1000 mg q 12 hrs for sepsis. WBC 11.6, patient has been afebrile with Tmax last 24 hrs of 99.6 ??F, cultures in process, PNA PCR +h flu and strep pneumo. Renal function appears stable at this time as Scr has been fluctuating at0.58-1.05 mg/dL (0.91 mg/dL today) and urine output has been stable around 2 mL/kg/hr. A trough level was checked on 06/14/25 while receiving 1000 mg q 12 hr and provided the following information/levels: Measured trough level while receiving 1000 mg q 12 hr= 8.2 mcg/mL with an estimated true trough level of 7.23 mcg/mL Goal trough target = Empiric MRSA or Enterococcal coverage (target 11-15) Estimated AUC while receiving 1000 mg q 12 hr= 302 mg*h/L (Goal target 400-600 mg*h/L, note- this AUC is only an estimate and should be confirmed w/ 2-level AUC if accurate AUC is required) Action taken: Continue 1000 mg q 12 hr Of note, todays trough was not prior to fourth dose. Decided to check trough this AM due to fluctuating scr. Plan: 1. Vancomycin 1000 mg q 12 hrs. 2. Check the next trough level 06/15 unless renal function status changes prior to that time, and follow-up w/ dose adjustments as needed. 3. Continue to monitor renal function daily. Pharmacy will continue to monitor the patient's labs. We will follow-up with daily progress note for Vancomycin and Aminoglycoside Consults and will write a progress note in the future if any additional dosage adjustment is needed on other renal consults. Subjective/Objective: Isaac Franklin is a 65 y.o. male Temp (24hrs), Av.8 ??F (37.1 ??C), Min:96.7 ??F (35.9 ??C), Max:99.7 ??F (37.6 ??C) Pulse 76 Temp 99.1 ??F (37.3 ??C) Resp 13 Wt 105.3 kg (232 lb 2.3 oz) SpO2 100% BMI 35.30kg/m?? WBC Date/Time Value Ref Range Status 06/14/2025 03:08 AM 11.6 (H) 4.8 - 10.8 K/uL Final 06/13/2025 11:34 PM 13.2 (H) 4.8 - 10.8 K/uL Final 06/13/2025 04:04 AM 15.4 (H) 4.8 - 10.8 K/uL Final PLATELETS Date/Time Value Ref Range Status 06/14/2025 03:08 AM 124 (L) 140 - 440 K/uL Final 06/13/2025 11:34 PM 118 (L) 140 - 440 K/uL Final 06/13/2025 04:04 AM 154 140 - 440 K/uL Final BUN Date/Time Value Ref Range Status 06/14/2025 03:08 AM 27 (H) 8 - 23 mg/dL Final 06/13/2025 04:04 AM 24 (H) 8 - 23 mg/dL Final 06/12/2025 05:36 PM 20 8 - 23 mg/dL Final CREATININE Date/Time Value Ref Range Status 06/14/2025 03:08 AM 0.91 0.67 - 1.17 mg/dL Final 06/13/2025 04:04 AM 0.86 0.67 - 1.17 mg/dL Final 06/12/2025 05:36 PM 1.03 0.67 - 1.17 mg/dL Final VANCOMYCIN, TROUGH Date/Time Value Ref Range Status 06/14/2025 10:13 AM 8.2 (L) 10.0 - 17.0 ug/mL Final Thank you for the consult and involving us in the care of this patient, we will continue to monitor. Maria Isabel Sommers, PHARMACIST * Karlie Hamilton MD - 06/14/2025 11:16 AM CDT CRITICAL CARE MEDICINE DAILY PROGRESS NOTE PCP: No primary care provider on file. Hx: Isaac Franklin is a 65 y.o. male admitted 06/12/2025 after presenting to an outside ED with a chief complaint of chest pain. Past medical history is limited (ED documentation states patient denied medical problems) but patient is a known tobacco user. On the day prior to admission the patient presented to [facility] with a chief complaint of chest pain which started approximately 2 days prior to presentation and had progressively worsened. The patient noted associated nausea and denies radiation. While awaiting further evaluation at the OSH the patient sustained a VF arrest which was treated with ACLS and achieved ROSC after 2 rounds of resuscitation. EKG revealed inferior ST elevation and lateral ST depression. 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 LHC revealed 100% thrombus of the proximal RCA which was managed with AMBER. The patient warranted IABP for support and was transferred to ICU. Upon arrival to ICU the patient experienced VF arrest. ACLS was initiated. ROSC was intermittently achieved multiple times during resuscitative efforts but the patient continued to return to VF. The decision wasmade to cannulate for ECMO. This was completed and the patient was placed on VA ECMO Pertinent PMHx: Past Medical History: Diagnosis Date Patient denies medical problems Current Care Plan Summary: 65-year-old male admitted to the ICU on 06/12/2025 with inferior STEMI, VF arrest, cardiogenic shock s/p left heart cath with AMBER to the RCA and placement of IABP further complicated by development of refractory VT requiring emergent bedside VA cannulation on 06/12 On 06/13, EKG showed worsening ST elevations and he was taken back to the Intramural Director and found to have acute in-stent thrombosis of the RCA with 100% occlusion now s/p IVUS guided balloon angioplasty and successful removal and reinsertion of IABP There was concern for poor absorption of DAPT and he was started on Aggrastat gtt. This a.m. he is now off inotropes and pressors VA parameters reviewed ABG and ECMO parameters reviewed. See separate ECMO management note IABP 1:1. Chest x-ray reviewed. Positioning appropriate. Augmenting well Discussed with cardiology. Troponins are downtrending. No indication for return to the Intramural Director atthis time Will complete Aggrastat gtt. and then transition back to heparin gtt. Continue aspirin, Brilinta No recurrence of VT Weaning lidocaine Continue amiodarone gtt. TTE this a.m. with EF 25% Continue gentle diuresis Renal function remained stable LFTs are downtrending Will lighten sedation and monitor mental status. Continue Seroquel 3 times daily due to agitation with sedation weaning Start trickle tube feeds Continue insulin gtt. Bowel regimen Infectious workup notable for strep pneumo and haemophilus influenza on pneumonia pathogen PCR Other cultures negative As patient was cannulated during eCPR, semisterile procedure-we will continue broad-spectrum antibiotics for at least 72 hours empirically, de-escalate as per culture data thereafter Patient remains on meropenem plus IV vancomycin ICU timeline: 06/12: Admitted to the ICU, cardiac arrest, eCPR with pVA cannulation 06/13: Return to the Intramural Director for acute in-stent thrombosis of the RCA s/p angioplasty Major active problem list: Principal Problem: ST elevation myocardial infarction involving right coronary artery Active Problems: Cardiogenic shock (CMS/HCC) Complete heart block (CMS/HCC) Cardiac arrest with ventricular fibrillation (CMS/HCC) CHB (complete heart block) ST elevation myocardial infarction (STEMI) Acute pulmonary edema (CMS/HCC) Acute hypoxemic respiratory failure (CMS/HCC) Lactic acidosis Laboratory test Patient receiving extracorporeal membrane oxygenation (ECMO) Subjective: 24 hour events - as above Objective: Current vital signs Pulse 76, temperature 99.1 ??F (37.3 ??C), resp. rate 13, weight 105.3 kg (232 lb 2.3 oz), SpO2 100%. 24 hour BP and temperature range BP: -- Temp (24hrs), Av.8 ??F (37.1 ??C), Min:96.7 ??F (35.9 ??C), Max:99.7 ??F (37.6 ??C) Input/Output 06/12 1900 - 06/14 0659 In: 6291.9 [I.V.:6191.9] Out: 6175 [Urine:5550; Drains:625] PHYSICAL EXAM: General: Synchronous with the Neuro: Following commands off of sedation Cardiac: RRR Pulm: Coarse Abdomen: Soft Extremities: Warm Data Review: BMP: Recent Labs 06/12/25173506/13/254 06/14/25 0308 GLUCOSE 229* 149* 101* BUN 20 24* 27* CREAT 1.03 0.86 0.91 NA 143 141 138 K 4.0 4.4 5.0 CL 110* 107 104 CO2 20* 24 25 ANIONGAP 13 10 9 MG 2.1 1.9 2.4 PO4 1.9* 4.9* 3.0 estimated creatinine clearance is 96.5 mL/min (by C-G formula based on SCr of 0.91 mg/dL). LFTs: Recent Labs 06/12/25173506/13/25 0404 06/14/25 0308 ALKPHOS 66 62 64 ALT 140* 125* 103* AST 265* 246* 178* BILITOTAL 0.5 0.5 0.6 ALBUMIN 2.6* 3.0* 2.8* CBC: Recent Labs 06/13/2540306/13/25 2334 06/14/25 0308 WBC 15.4* 13.2* 11.6* HGB 9.9* 8.7* 8.8* HCT 28.8* 26.0* 26.5* PLT 154 118* 124* MCV 92.0 94.5 95.0 Coagulation: Recent Labs 06/11/25 2325 06/12/25 0542 06/13/25 1258 06/13/25 1536 06/13/252007 PT 12.0* -- -- -- -- INR 0.9 -- -- -- -- APTT 25.1 < > >249.0* 156.9* 40.7* < > = values in this interval not displayed. ABG: Lab Results Component Value Date/Time SPECIMENSOU Arterial 06/14/2025 07:20 AM SPECIMENSOU Arterial 06/14/2025 07:20 AM PHBLOODPOC 7.47 (H) 06/14/2025 07:20 AM GVW8IBX 37 06/14/2025 07:20 AM PO2POC 69 (L) 06/14/2025 07:20 AM LXY8XYF 27 (H) 06/14/2025 07:20 AM O4ZVFWDX 96 06/14/2025 07:20 AM BNG7PTR 28 (H) 06/14/2025 07:20 AM BEPOC 3 06/14/2025 07:20 AM LACTATE 1.4 06/14/2025 07:20 AM PATIENTTEMP 37.0 06/14/2025 07:20 AM PHTEMPCORR 7.47 (H) 06/14/2025 07:20 AM GBI1HAYTSW 37 06/14/2025 07:20 AM OJ0NELDCEK 69 (L) 06/14/2025 07:20 AM Lactic acid: Lab Results Component Value Date/Time LACTATE 1.4 06/14/2025 07:20 AM LACTATE 1.1 06/14/2025 03:05 AM LACTATE 1.2 06/13/2025 11:07 PM LACTATE 11.5 (HH) 06/12/2025 05:42 AM Radiology: Relevant imaging reviewed Assessment and Plan Neuro/Psych: Acute metabolic encephalopathy in the setting of cardiac arrest and critical illness - Remains neuro intact - Agitated with sedation weaning. Continue Seroquel 3 times daily - Lighten sedation Cardiovascular/Fluids: Inferior STEMI s/p AMBER to the RCA Refractory VT Cardiogenic shock with IABP and requiring mechanical circulatory support with peripheral VA ECMO Acute in-stent thrombosis of the RCA s/p balloon angioplasty - TTE on 06/22 EF 25% - Remains on VA ECMO - Continue trending troponins - Continue DAPT, Aggrastat gtt. Restart heparin GTT once Aggrastat is complete - No recurrence of VT. Weaning lidocaine gtt. Continue amiodarone gtt. - Trend electrolytes. Keep magnesium greater than 2 and K greater than 4 - TVP in place placed on backup rate Pulmonary: Acute hypoxic respiratory failure-multifactorial in etiology secondary to acute infectious process plus pulmonary edema -Continue lung protective ventilation. Wean FiO2 as tolerated - Continue broad-spectrum antibiotics - Diuresis GI/NUT: Start trickle feeds SUP, Pepcid Renal/LYTES/Acid-Base: GÉNESIS -improving - Monitor urine output - Trend electrolytes - Diuresis Infectious Disease: Streptococcal pneumonia, H. influenzae pneumonia Continue IV meropenem plus IV vancomycin for 72 hours in the setting of semisterile procedure, willde-escalate thereafter Hem/Onc/Coag: DVTp, heparin infusion Endocrine: Stress-induced/steroid-induced hyperglycemia Insulin infusion Check HbA1C Musculoskeletal/Skin: Routine ICU care Family communication: Ongoing updates Critical care time: 40 min * Karlie Hamilton MD - 06/14/2025 10:24 AM CDT [facility] ECMO Daily Management Note Isaac Franklin [id number] ECMO Day # 2 RPM Settin (06/13/25599) LPM Settin.08 (06/13/25599) Sweep Settin (06/13/25599) ECMO Data ABG:No results found for: PH , PCO2 , PO2 , HCO3 , BASEEXCESS , SO2 Vt Set (mL): 550 mL (06/14/25699) Set Rate (breaths/min): 14 bpm (06/14/25699) PEEP (cmH20): 10 cmH20 (06/14/25699) I have inspected the circuit and it does not show significant clot. Last documented vent settings Vt Set (mL): 550 mL (06/14/25699) Set Rate (breaths/min): 14 bpm (06/14/25699) PEEP (cmH20): 10 cmH20 (06/14/25 0700)Pulse 76, temperature 99.1 ??F (37.3 ??C), resp. rate 13, weight 105.3 kg (232 lb 2.3 oz), SpO2 100%. Physical Exam Temp (24hrs), Av.8 ??F (37.1 ??C), Min:96.7 ??F (35.9 ??C), Max:99.7 ??F (37.6 ??C) Intake/Output Summary (Last 24 hours) at 06/14/2025 1024 Last data filed at 06/14/2025 0900 Gross per 24 hour Intake 3295.25 ml Output 5965 ml Net -2669.75 ml Last documented weight: Weight: 105.3 kg (232 lb 2.3 oz) (06/14/25 0300) Admit Wt: Weight: 107.4 kg (236 lb 12.4 oz) (06/13/25 0600) Neuro: Agitated with stimulation, moving all extremities Lungs: Coarse Heart: RRR Abdomen: Soft Extremities: BL LE are warm Cannula: Venous: 25 Fr Left Femoral multi-stage venous drainage cannula Arterial: 19 Fr Left Femoral single stage arterial return cannula 6Fr Left SFA DPC IABP Right femoral artery Peripheral art line: R radial Laboratory data CBC: Recent Labs 06/13/25 0404 06/13/25 2334 06/14/25 0308 WBC 15.4* 13.2* 11.6* HGB 9.9* 8.7* 8.8* HCT 28.8* 26.0* 26.5* PLT 154 118* 124* BMP: Recent Labs 06/12/25 1736 06/13/25 0404 06/14/25 0308 GLUCOSE 229* 149* 101* BUN 20 24* 27* CREAT 1.03 0.86 0.91 NA 143 141 138 K 4.0 4.4 5.0 CL 110* 107 104 CO2 20* 24 25 CA 9.5 8.6* 8.3* CXR: confirmed cannula positions, Venous in the RA appendage per cts will leave it in for now Assessment/Plan: Acute STEMI/ Inferior NC Cardiogenic Shock Recurrent Ventricular fibrillation Cardiac arrest Acute on chronic hypoxemic respiratory failure Intra-aortic balloon pump support - Acute STEMI/inferior NC with RCA occlusion status post emergent left heart cath RCA stent placement - Refractory V-fib arrest-emergent bedside VA ECMO cannulation - Severe cardiogenic shock - Severe acute hypoxemic respiratory failure secondary to acute pulmonary edema - Intra-aortic balloon pump for afterload reduction Adequate gas exchange on the above ECMO flows Off ionotropes and vasopressors today Diurese Repeat echo with EF 20-25% Troponin is downtrending. Continue to monitor Continue asa, brilinta. Complete aggrostat infusion then resume heparin gtt At this time patient does have adequate pulse pressure greater than 20 Lighten sedation Daily hemolysis labs Discussed with cardiology Karlie Hamilton MD * Anyi Jasso FNP - 06/14/2025 9:19 AM CDT Cardiac Surgery Dr. Penny 06/12/25: Procedures: A-V ecmo placement for cardiogenic shock FINDINGS: 19 fr arterial, 25 venous percutaneous ECMO cannula placed, 4 liers of pump flow Patient is s/p coronary angiogram Acute in-stent thrombosis of right coronary artery with 100% occlusion Successful IVUS guided balloon angioplasty with 4.5 mm NC balloon. Very small area of residual distal/apical RPDA thrombus Left ventricular end-diastolic pressure, 21 mmHg Successful removal and subsequent reinsertion of 40 cc IABP ASA/Aggrastat/Brilinta Dr. Rivera discussed with [facility] and Cardiology Cosigned by Kim Penny MD at 06/15/2025 10:17 AM CDT * Prince Farr MD - 06/14/2025 7:34 AM CDT Cardiology Progress Note Patient: Isaac Franklin / 65 y.o. / male : 1960 Today's Date: 06/14/2025 SUBJECTIVE: Mr. Franklin continues to be intubated and sedated. Current medicines reviewed. Chart reviewed. Recent Cardiac Testing: OBJECTIVE: Pulse 100 Temp 98.8 ??F (37.1 ??C) Resp 12 Wt 105.3 kg (232 lb 2.3 oz) SpO2 100% BMI 35.30 kg/m?? The range of BP in the last 24 hours is:BP: -- Intake/Output Summary (Last 24 hours) at 06/14/2025 0831 Last data filed at 06/14/2025 0700 Gross per 24 hour Intake 3100.97 ml Output 5740 ml Net -2639.03 ml General appearance: critically ill. Neck: no jugular venous distension Lungs: Mild bilateral crackles Heart: S1 and S2 normal. / systolic murmur Abdomen: soft and non-tender. Extremities: trace to 1+ edema. No access site complication. Minimal bruising at balloon pump siteyesterday. Data Review: Laboratory & imaging data reviewed CBC: Recent Labs 06/11/255 06/12/25 0542 06/12/25 1736 06/13/25 0404 06/13/25 2334 06/14/25 0308 WBC 14.2* 20.7* 19.4* 15.4* 13.2* 11.6* HGB 15.5 12.7* 10.8* 9.9* 8.7* 8.8* PLT 256 217 204 154 118* 124* BMP: Recent Labs 06/11/25 2325 06/12/25 0542 06/12/25 0941 06/12/25 1342 06/12/25 1445 06/12/25 1736 06/13/25 0404 06/14/25 0308 GLUCOSE 177* 477* -- 276* -- 229* 149* 101* BUN 13 16 -- 18 -- 20 24* 27* CREAT 0.58* 0.91 -- 1.05 -- 1.03 0.86 0.91 NA 138 139 -- 141 -- 143 141 138 K 4.0 3.4* 2.8* 3.2* 3.3* 4.0 4.4 5.0 CO2 24 14* -- 17* -- 20* 24 25 MG 1.9 4.3* -- 2.5* -- 2.1 1.9 2.4 TROPONIN T, BASELINE 5TH GEN Date Value Ref Range Status 06/11/2025 6 <=15 ng/L Final Cardiac telemetry monitoring: Sinus rhythm with rate 50-80s. Overnight brief pacing needs for sinusbradycardia. Occasional PVCs present. No sustained arrhythmia. ASSESSMENT: Principal Problem: ST elevation myocardial infarction involving right coronary artery Active Problems: Cardiogenic shock (CMS/HCC) Complete heart block (CMS/HCC) Cardiac arrest with ventricular fibrillation (CMS/HCC) CHB (complete heart block) ST elevation myocardial infarction (STEMI) Acute pulmonary edema (CMS/HCC) Acute hypoxemic respiratory failure (CMS/HCC) Lactic acidosis Laboratory test Patient receiving extracorporeal membrane oxygenation (ECMO) Incessant VT/VF. Refractory to multiple defibrillations and antiarrhythmic 06/13. No recurrence. 06/14: PVCs present. No sustained arrhythmia Inferior STEMI s/p primary PCI of proximal to mid right coronary artery 06/12- Primary PCI of RCA 06/13- Mild ST segment changes. Repeat angio showed in stent thrombosis. This was treated with IVUSguided balloon angioplasty. Cardiogenic shock S/p VA ECMO cannulation on 06/12 06/13- @4400 RPM with ~4L per minute support. 06/14- @4500 RPM with ~5.2 L/min support. Off norepinephrine, epinephrine and vasopressin. PA catheter hemodynamics reviewed. Cardiac index 1.2. CVP 5, PA pressure 14/05. S/p IABP placement. 06/12- Appropriately augmenting. Appropriate position on chest X ray. 06/13- Appropriate augmentation. Appropriate position chest x-ray 06/14- Appropriate augmentation. Appropriate position on chest X ray. Complete heart block Currently has temporary pacemaker. Tested and settings adjusted. 06/13- pacemaker rate was at 70s. Readjusted to 50 bpm. 06/14- pacemaker set at VVI 50bpm, output 18 bpm. Retested. Settings changed to VVI 40bpm and output 2mA. No loss of capture at 1 mA History of tobacco use Recommendations/Plan; Repeat electrocardiogram today again shows inferior Q waves and somewhat more pronounced ST elevation and anterolateral ST depression. We will await a troponin trend. There are concerns regarding decreased antiplatelet absorption and reduced bowel movements. At thattime, [id number] inhibitor with Aggrastat was initiated. At that time given his high flow on ECMO, it was thought to be safe to hold heparin. Continue aspirin 81 mg daily and ticagrelor 90 mg twice daily. Continue amiodarone 0.5 mg/min. Reduce lidocaine to 0.5 mg/min. If continues to be arrhythmia free,we will plan to discontinue lidocaine today. Continue hemodynamic support with mechanical and inotropic support as needed. Continue atherosclerotic risk factor modification Limited echo today. Called echo lab. Continue diuresis as needed. Repeat troponin - continues to down trend- EKG changes likely reflective of previous injury. With hemodynamic improvement, we will hold off to repeat coronary angiography. Obtain another troponin in [address] Hamilton. Prince Yordan MD 06/14/2025 8:31 AM Critical care time: 32 min excluding discussion with the family/procedure time. The high probability of sudden, clinically significant deterioration in the patient's condition required the highest level of my preparedness to intervene urgently. The services I provided to this patient were to treat and/or prevent clinically significant deterioration that could result in decomposition or . Services included the following: chart data review, reviewing nursing notes and/or old charts, documentation time, organizational consultant collaboration regarding findings and treatment options, medication orders andmanagement, direct patient care, vital sign assessments and ordering, interpreting and reviewing diagnostic studies/lab tests. It did not include time spent performing other billable procedures. Prince Yordan MD Interventional Cardiology Portions of the record may have been created with voice recognition software. Occasional wrong-wordor `[id number]?? substitutions may have occurred due to the inherent limitations of voice recognition software. Read the chart carefully and recognize, using context, where substitutions have occurred. Please call if questions arise. Some part of the chart may have been copied forward. Copied forward data have been reviewed and and edited accordingly. Prince Yordan MD Interventional and Structural Customer Care Manager * Zenaida Michel MD - 06/13/2025 5:31 PM CDT Critical Care Medicine Update Note Patient is s/p coronary angiogram earlier today Acute in-stent thrombosis of right coronary artery with 100% occlusion. Successful IVUS guided balloon angioplasty with 4.5 mm NC balloon. Very small area of residual distal/apical RPDA thrombus Left ventricular end-diastolic pressure, 21 mmHg Successful removal and subsequent reinsertion of 40 cc intra-aortic balloon pum Extensive discussion with Dr. Farr this afternoon, concern for poor absorption. Episode of emesis noted this AM OGT placed on LIS- with 300cc output Abdomen distended, hypoactive bowel sounds, no bowel movements Will switch to rectal ASA, continue Brillinta Will hold heparin gtt and initiate Aggrastat gtt without initial bolus x 12 hours PTT [address] Farr, okay to start Aggrastat gtt Q1h neurovascular checks Zenaida Michel MD Critical Care Medicine * Robinson Maier PA-C - 06/13/2025 10:43 AM CDT Images from the original note were not included. Cardiothoracic Surgery ICU Progress Note Isaac Franklin is a 65 y.o. male Hospital Course: Hospital LOS: 1 day POD#: 1 Admitted 06/12/2025 with a primary diagnosis of STEMI/refractory VT/VF. Surgery: peripheral VA ECMO Dr. Penny 06/13/25: paced @ 70 this. Pacer adjusted to 50BU rate per Cardiology. ECMO flow @ ~4.5-5LPM Concern for progression of NC per Cardiology taken to earthmoving labourer this am UOP 1445, BUN/Cr 24/0.86 H/H Lactic acid 1.8, coming down. +pneumonia panel SUBJECTIVE: Sedated and intubated OBJECTIVE: Vitals With Comments 06/13/2025 0700 06/13/2025 0645 06/13/2025 0630 06/13/2025 0615 Resp: 14 14 14 14 Temp: 98.7 ??F (37.1 ??C) 98.7 ??F (37.1 ??C) 98.7 ??F (37.1 ??C) 98.7 ??F (37.1 ??C) SpO2: 99 % -- -- -- The range of BP in the last 24 hours is: BP: -- Temp (24hrs), Av.9 ??F (37.2 ??C), Min:98 ??F (36.7 ??C), Max:100.1 ??F (37.8 ??C) Admission Weight: 107.4 kg (236 lb 12.4 oz) (06/13/25 06) Last documented Weight: 107.4 kg (236 lb 12.4 oz) (06/13/25 06) Physical Exam: General appearance: intubated Head: atraumatic, Normocephalic, without obvious abnormality Lungs: on CMV Heart: rate 70 paced Abdomen: firm Extremities: doppler distal pulses groin sites OK Neurologic: sedated/intubated Data: TEPW: temp transvenous pacer in place Labs/Imaging: CBC: Recent Labs 06/12/25 0542 06/12/25 1736 06/13/25 0404 WBC 20.7* 19.4* 15.4* HGB 12.7* 10.8* 9.9* HCT 38.3* 31.7* 28.8* PLT 217 204 154 CMP: Recent Labs 06/12/25 1342 06/12/25 1445 06/12/25 1736 06/13/25 0404 GLUCOSE 276* -- 229* 149* BUN 18 -- 20 24* CREAT 1.05 -- 1.03 0.86 NA 141 -- 143 141 K 3.2* 3.3* 4.0 4.4 CL 109* -- 110* 107 CO2 17* -- 20* 24 CA 10.8* -- 9.5 8.6* ALKPHOS -- 81 66 62 ALT -- 170* 140* 125* AST -- 326* 265* 246* BILITOTAL -- 0.5 0.5 0.5 ALBUMIN -- 3.0* 2.6* 3.0* Coagulation: Recent Labs 06/11/25 2325 06/12/25 0542 PT 12.0* -- INR 0.9 -- APTT 25.1 >249.0* CXR:06-13 Problem List: Active Hospital Problems Diagnosis ??? Cardiogenic shock (CMS/HCC) ??? Laboratory test ??? Patient receiving extracorporeal membrane oxygenation (ECMO) ??? Complete heart block (CMS/HCC) ??? ST elevation myocardial infarction involving right coronary artery ??? Cardiac arrest with ventricular fibrillation (CMS/HCC) ??? CHB (complete heart block) ??? ST elevation myocardial infarction (STEMI) ??? Acute pulmonary edema (CMS/HCC) ??? Acute hypoxemic respiratory failure (CMS/HCC) ??? Lactic acidosis Resolved Hospital Problems No resolved problems to display. ASSESSMENT/PLAN: Inferior STEMI s/p PCI to RCA Refractory VT/VF s/p peripheral VA ECMO cannulation Positive pneumonia panel Per Dr Farr-inferior q waves with more pronounced ST elevation and anterolateral ST depression--back to earthmoving labourer for repeat angiogram +/- PCI -CTS will continue to follow with plansd for return to OR for surgical decannulation -[facility] attending Robinson Maier PA-C 06/13/2025 10:43 AM Cosigned by Kim Penny MD at 06/13/2025 3:46 PM CDT * Camilo De La Fuente, PHARMACIST - 06/13/2025 10:34 AM CDT Vancomycin Consult to Pharmacy Vancomycin Day # 2 of therapy Serum creatinine: 0.86 mg/dL 06/13/25 0404 Estimated creatinine clearance: 103.1 mL/min NOTE: This calculation is potentially inaccurate in acute and/or chronic kidney disease and over/under weight patients, and thus is only an estimation of renal function Assessment: Isaac Franklin is a 65 y.o. male who is currently receiving Vancomycin 1500 mg IV q24h for suspected sepsis. Pertinent labs include SCr = 0.86 mg/dL, CrCl 103.1 mL/min. WBC = 15.4 K/uL and Tmax = 100.1 F. Goal Vancomycin trough level of 11-15 mcg/mL. Cultures: 06/12 Blood - In process 06/13 Sputum - In process 06/13 PNA PCR - H flu and Strep pneumo Plan: Change to Vancomycin 1000 mg IV q12h Plan to obtain a Vancomycin trough on 06/14 unless otherwise clinically indicated and adjust as needed Continue to monitor renal function per protocol or as ordered Pharmacy will continue to monitor the patient's labs. We will follow-up with a daily progress note for Vancomycin and Aminoglycoside Consults. Subjective/Objective: Isaac Franklin is a 65 y.o. male Serum creatinine: 0.86 mg/dL 06/13/25 0404 Estimated creatinine clearance: 103.1 mL/min Temp (24hrs), Av.9 ??F (37.2 ??C), Min:98 ??F (36.7 ??C), Max:100.1 ??F (37.8 ??C) Pulse 72 Temp 98.7 ??F (37.1 ??C) Resp 14 Wt 107.4 kg (236 lb 12.4 oz) SpO2 99% BMI 36.00kg/m?? WBC Date/Time Value Ref Range Status 06/13/2025 04:04 AM 15.4 (H) 4.8 - 10.8 K/uL Final 06/12/2025 05:36 PM 19.4 (H) 4.8 - 10.8 K/uL Final 06/12/2025 05:42 AM 20.7 (H) 4.8 - 10.8 K/uL Final CREATININE Date/Time Value Ref Range Status 06/13/2025 04:04 AM 0.86 0.67 - 1.17 mg/dL Final 06/12/2025 05:36 PM 1.03 0.67 - 1.17 mg/dL Final 06/12/2025 01:42 PM 1.05 0.67 - 1.17 mg/dL Final 06/12/2025 05:42 AM 0.91 0.67 - 1.17 mg/dL Final 06/11/2025 11:25 PM 0.58 (L) 0.67 - 1.17 mg/dL Final BUN Date/Time Value Ref Range Status 06/13/2025 04:04 AM 24 (H) 8 - 23 mg/dL Final 06/12/2025 05:36 PM 20 8 - 23 mg/dL Final 06/12/2025 01:42 PM 18 8 - 23 mg/dL Final Thank you for the consult and involving us in the care of this patient, we will continue to monitor. Camilo De La Fuente, PHARMACIST * Maria Victoria Kumar - 06/13/2025 8:45 AM CDT Reason for Visit: Crisis (STEMI) Patient spiritual issues identified summary of patient???s most significant issue(s): Patient (pt intubated/sedated; no family) present during encounter. Goals of Spiritual Care Resident Care Manager Plan: Spiritual Care Services remain available for referral PRN. Recommendations for Healthcare Team As spiritual needs/distress arise, please contact Spiritual Care Services. We will follow up as needed. Thank you for this referral. Rev Maria Victoria May MBA, MDiv, [facility] Resident Care Manager II Certified, Spiritual Care [email or web address] [phone] Dept [phone] [facility] Mobile Phone * Olya Campbell - 06/13/2025 8:09 AM CDT EKG resulted in critical findings. ACTUE NC/STEMI , EKG results were reported to Prince Farr MD at 0804 * Prince Farr MD - 06/13/2025 7:53 AM CDT Cardiology Progress Note Patient: Isaac Franklin / 65 y.o. / male : 1960 Today's Date: 06/13/2025 SUBJECTIVE: Mr. Franklin continues to be intubated and sedated. Current medicines reviewed. Chart reviewed. Recent Cardiac Testing: OBJECTIVE: Pulse 72 Temp 98.7 ??F (37.1 ??C) Resp 14 Wt 107.4 kg (236 lb 12.4 oz) SpO2 99% BMI 36.00kg/m?? The range of BP in the last 24 hours is:BP: -- Intake/Output Summary (Last 24 hours) at 06/13/2025 0830 Last data filed at 06/13/2025 0625 Gross per 24 hour Intake 6350.07 ml Output 1770 ml Net 4580.07 ml General appearance: critically ill. Neck: jugular venous distension present Lungs: Mild bilateral crackles Heart: S1 and S2 normal. 2/6 systolic murmur Abdomen: soft and non-tender. Extremities: edema Data Review: Laboratory & imaging data reviewed CBC: Recent Labs 06/11/25232406/12/25 0542 06/12/256 06/13/25 0404 WBC 14.2* 20.7* 19.4* 15.4* HGB 15.5 12.7* 10.8* 9.9* PLT 256 217 204 154 BMP: Recent Labs 06/11/25232406/12/25 0542 06/12/25 0941 06/12/25 1342 06/12/25 1445 06/12/25 1736 06/13/25 0404 GLUCOSE 177* 477* -- 276* -- 229* 149* BUN 13 16 -- 18 -- 20 24* CREAT 0.58* 0.91 -- 1.05 -- 1.03 0.86 NA 138 139 -- 141 -- 143 141 K 4.0 3.4* 2.8* 3.2* 3.3* 4.0 4.4 CO2 24 14* -- 17* -- 20* 24 MG 1.9 4.3* -- 2.5* -- 2.1 1.9 TROPONIN T, BASELINE 5TH GEN Date Value Ref Range Status 06/11/2025 6 <=15 ng/L Final Cardiac telemetry monitoring: V paced in 70s. No arrhythmia. ASSESSMENT: Principal Problem: ST elevation myocardial infarction involving right coronary artery Active Problems: Cardiogenic shock (CMS/HCC) Complete heart block (CMS/HCC) Cardiac arrest with ventricular fibrillation (CMS/HCC) CHB (complete heart block) ST elevation myocardial infarction (STEMI) Acute pulmonary edema (CMS/HCC) Acute hypoxemic respiratory failure (CMS/HCC) Lactic acidosis Incessant VT/VF. Refractory to multiple defibrillations and antiarrhythmic 06/13. No recurrence. Inferior STEMI s/p primary PCI of proximal to mid right coronary artery Cardiogenic shock S/p ECMO cannulation 06/13- @4400 RPM with ~4L per minute support. S/p IABP placement. 06/12- Appropriately augmenting. Appropriate position on chest X ray. 06/13- Appropriate augmentation. Appropriate position chest x-ray Complete heart block Currently has temporary pacemaker. Tested and settings adjusted. 06/13- pacemaker rate was at 70s. Readjusted to 50 bpm. R History of tobacco use Recommendations/Plan; Repeat electrocardiogram shows inferior q waves with more pronounced ST elevation and anterolateralST depression. Is possible that he has completed infarct versus reoccluded his right coronary artery. He has had continued tenuous hemodynamics. He does have transient times when he is not perfusinghis electrical beats. I have discussed this with his , Abi as well as the felting machine operator helper team. With shared decision making process, will proceed with emergent repeat left heart cath, coronary angiography with possible PCI. Amiodarone was held last night with concerns of prolonged QT while paced rhythm. We will reobtain electrocardiogram today. He is very high risk for recurrence of VT. Plan to restart amiodarone and 0.5 mg/min. Decrease lidocaine to 1 mg/min. Continue hemodynamic support with mechanical and inotropic support as needed. Continue dual antiplatelet therapy with aspirin 81 mg daily ticagrelor 90 mg twice daily. Continue atherosclerotic risk factor modification Heparin per ECMO protocol/cardiothoracic surgical team. Limited echo today. Continue diuresis. Discussed with felting machine operator helper team who will assist with PA catheter placement. Discussed with Dr. Michel. PRE-PROCEDURE HISTORY AND PHYSICAL & CONSCIOUS SEDATION ASSESSMENT Patient: Isaac Franklin Appropriate history and physical on chart? yes Risks (including: bleeding, need for blood transfusion, arrhythmia, need for emergent surgery, renal failure, allergic reactions, myocardial infarction, stroke and . His risks are elevated above typical risk due to his critical medical condition), benefits and alternative options of procedureas well as conscious sedation discussed with patient. Previous anesthesia experiences reviewed. Informed consent obtained (from ) and placed in chart? yes Physical exam: Heart: normal rate, regular rhythm, normal S1, S2, 2/6 systolic murmur Lungs: clear to auscultation, unlabored breathing Airway: normal ASA Classification: 1. A normal healthy patient 2. A patient with mild systemic disease 3. A patient with severe systemic disease. Limits activity, but not incapacitating. 4. A patient with incapacitating systemic disease that is a constant threat to life. 5. A moribund patient, not expected to survive 24 hours with or without the procedure. Choose ASA Class: 4 Mallampati Score: Intubated and sedated. NPO status per policy: yes Prince Yordan MD 06/13/2025 8:43 AM Critical care time: 35 min excluding discussion with the family/procedure time. The high probability of sudden, clinically significant deterioration in the patient's condition required the highest level of my preparedness to intervene urgently. The services I provided to this patient were to treat and/or prevent clinically significant deterioration that could result in decomposition or . Services included the following: chart data review, reviewing nursing notes and/or old charts, documentation time, organizational consultant collaboration regarding findings and treatment options, medication orders andmanagement, direct patient care, vital sign assessments and ordering, interpreting and reviewing diagnostic studies/lab tests. It did not include time spent performing other billable procedures. Prince Yordan MD Interventional Cardiology Portions of the record may have been created with voice recognition software. Occasional wrong-wordor `[id number]?? substitutions may have occurred due to the inherent limitations of voice recognition software. Read the chart carefully and recognize, using context, where substitutions have occurred. Please call if questions arise. Some part of the chart may have been copied forward. Copied forward data have been reviewed and and edited accordingly. Prince Yordan MD Interventional and Structural Customer Care Manager * Zenaida Michel MD - 06/13/2025 7:30 AM CDT [facility] ECMO Daily Management Note Isaac Franklin [id number] ECMO Day # 1 RPM Settin (06/13/25 0600) LPM Settin.08 (06/13/25 06) Sweep Settin (06/13/25599) ECMO Data ABG:No results found for: PH , PCO2 , PO2 , HCO3 , BASEEXCESS , SO2 Vt Set (mL): 550 mL (06/14/25 0503) Set Rate (breaths/min): 14 bpm (06/14/25 0503) PEEP (cmH20): 10 cmH20 (06/14/253) I have inspected the circuit and it does not show significant clot. Last documented vent settings Vt Set (mL): 550 mL (06/14/25 0503) Set Rate (breaths/min): 14 bpm (06/14/25 050) PEEP (cmH20): 10 cmH20 (06/14/25 050)Pulse 87, temperature 98.3 ??F (36.8 ??C), resp. rate 14, weight 105.3 kg (232 lb 2.3 oz), SpO2 95%. Physical Exam Temp (24hrs), Av.8 ??F (37.1 ??C), Min:96.7 ??F (35.9 ??C), Max:99.7 ??F (37.6 ??C) Intake/Output Summary (Last 24 hours) at 06/14/2025 0650 Last data filed at 06/14/2025 06 Gross per 24 hour Intake 3025.69 ml Output 5465 ml Net -2439.31 ml Last documented weight: Weight: 105.3 kg (232 lb 2.3 oz) (06/14/25 0300) Admit Wt: Weight: 107.4 kg (236 lb 12.4 oz) (06/13/25 06) Neuro: Responds to questions and nods, withdraws to pain Lungs: Crackles bilaterally Heart: Paced rhythm Abdomen: Soft distended Extremities: Cool Cannula: Venous: 25 Fr Left Femoral multi-stage venous drainage cannula Arterial: 19 Fr Left Femoral single stage arterial return cannula 6Fr Left SFA DPC IABP Right femoral artery Peripheral art line: R radial Laboratory data CBC: Recent Labs 06/13/25 0404 06/13/25 2334 06/14/25 0308 WBC 15.4* 13.2* 11.6* HGB 9.9* 8.7* 8.8* HCT 28.8* 26.0* 26.5* PLT 154 118* 124* BMP: Recent Labs 06/12/25 1736 06/13/25 0404 06/14/25 0308 GLUCOSE 229* 149* 101* BUN 20 24* 27* CREAT 1.03 0.86 0.91 NA 143 141 138 K 4.0 4.4 5.0 CL 110* 107 104 CO2 20* 24 25 CA 9.5 8.6* 8.3* CXR: confirmed cannula positions, Venous in the RA appendage per cts will leave it in for now Assessment/Plan: Acute STEMI/ Inferior NC Cardiogenic Shock Recurrent Ventricular fibrillation Cardiac arrest Acute on chronic hypoxemic respiratory failure Intra-aortic balloon pump support -Acute STEMI/inferior NC with RCA occlusion status post emergent left heart cath RCA stent placement - Refractory V-fib arrest-emergent bedside VA ECMO cannulation - Severe cardiogenic shock on both vasopressor and mechanical circulatory support-VA ECMO femoral femoral-status post ECMO placement V-fib improved - Severe acute hypoxemic respiratory failure secondary to acute pulmonary edema - Good urine output-multiple pressors hold off on Lasix for now - Intra-aortic balloon pump for afterload reduction - Extremely critically ill Adequate gas exchange on the above ECMO flows We will continue to wean Levophed and vasopressin infusions to off, will maintain on low-dose epinephrine infusion for inotropic support/to maintain pulsatility At this time patient does have adequate pulse pressure greater than 20 We will utilize Dilaudid infusion and lieu of fentanyl infusion as fentanyl sequester's in the ECMOcircuit We will wean off of propofol infusion due to ongoing significant hemodynamic instability which I suspect propofol is contributing to As patient remained profoundly critically ill, we will maintain a RASS of 0 to - 2 at this time We will utilize Precedex versus Versed infusion in addition to Dilaudid Daily hemolysis labs Currently on heparin infusion with goal PTT of 50-60 for mechanical device prophylaxis Will continue maximally tolerated support at this time Patient is not a candidate for ECMO weaning Discussed with cardiology Zenaida Michel MD Critical Care Medicine * Zenaida Michel MD - 06/13/2025 7:30 AM CDT CRITICAL CARE MEDICINE DAILY PROGRESS NOTE PCP: No primary care provider on file. Hx: Isaac Franklin is a 65 y.o. male admitted 06/12/2025 after presenting to an outside ED with a chief complaint of chest pain. Past medical history is limited (ED documentation states patient denied medical problems) but patient is a known tobacco user. On the day prior to admission the patient presented to [facility] with a chief complaint of chest pain which started approximately 2 days prior to presentation and had progressively worsened. The patient noted associated nausea and denies radiation. While awaiting further evaluation at the OSH the patient sustained a VF arrest which was treated with ACLS and achieved ROSC after 2 rounds of resuscitation. EKG revealed inferior ST elevation and lateral ST depression. 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 LHC revealed 100% thrombus of the proximal RCA which was managed with AMBER. The patient warranted IABP for support and was transferred to ICU. Upon arrival to ICU the patient experienced VF arrest. ACLS was initiated. ROSC was intermittently achieved multiple times during resuscitative efforts but the patient continued to return to VF. The decision wasmade to cannulate for ECMO. This was completed and the patient was placed on VA ECMO Pertinent PMHx: Past Medical History: Diagnosis Date Patient denies medical problems Current Care Plan Summary: Inferior STEMI- Cardiogenic shock requiring mechanical circulatory support TTE:: Vasopressor/Inotropic support: Epinephrine gtt 0.04 mcg/kg/min Levophed gtt 0.04 mcg/kg/min Vasopressin gtt 0.05 Mechanical Circulatory Support: pVA ECMO- 5L/min flow, Sweep 6 - see separate management note IABP 1:1 Augmenting well Hemodynamics on the above support reviewed: HR: 50s MAP: 75 Plan: No acute events reported overnight AM labs personally reviewed hemoglobin globin stable at 10.1, platelets above 150,000 LDH mildly elevated Patient remains on maximally tolerated ECMO support please see separate note for details And checks x-ray reviewed, intra-aortic balloon pump appropriate place Will maintain at one-to-one augmentation augmenting well at this time Renal function remains stable, making adequate urine We will initiate gentle diuresis today and monitor urine output and renal function closely Monitor closely for access insufficiency No signs for clinically significant hemolysis LFTs mildly increased, likely secondary to ischemic/congestive hepatopathy-we will trend daily Patient is following commands with sedation holiday, however on lightening of sedation patient is becoming hyper agitated-we will utilize atypical antipsychotics to a assist with agitation and limit sedation infusions Infectious workup thus far positive for streptococcal species pneumonia, haemophilus influenza pneumonia Patient remains on meropenem plus IV vancomycin As patient was cannulated during eCPR, semisterile procedure-we will continue broad-spectrum antibiotics for at least 72 hours empirically, de-escalate as per culture data thereafter Bicarbonate infusion initially initiated due to worsening GÉNESIS in the setting of metabolic acidosis,metabolic acidosis has improved renal function also improving Weaning down on sweep gas flow significantly. We will DC bicarbonate infusion Repeat EKG this morning demonstrating inferior Q waves with more percent pronounced ST elevations as well as ST depressions in the anterior lateral leads Completion of infarct versus reocclusion of right coronary artery. Intermittent inadequate perfusion Discussed with interventional cardiology, plan for Amiodarone infusion discontinued overnight, as patient is at very significant risk for cardiac arrhythmia-we will resume Adderall infusion at 0.5 mg/min, we will decrease lidocaine infusion to 1 mg/min Continue aspirin Brilinta Repeat TTE pending Addendum: Significant hemodynamic instability and hypoxia on returning from [facility] Unable to obtain O2 saturations greater than 85%, FiO2 and ventilator increased to 100%, increased PEEP Pre and post oxygenator gas obtained and reviewed, no concerns for membrane lung failure at this time Bedside bronchoscopy emergently performed with significant mucous plugging involving the right middle and lower lobes Patient received 80 of IV Lasix in the [facility], robust response to diuresis Significant improvement in oxygenation with the above measures Hemodynamics have also stabilized Repeat BAL sent ICU timeline: Major active problem list: Principal Problem: ST elevation myocardial infarction involving right coronary artery Active Problems: Cardiogenic shock (CMS/HCC) Complete heart block (CMS/HCC) Cardiac arrest with ventricular fibrillation (CMS/HCC) CHB (complete heart block) ST elevation myocardial infarction (STEMI) Acute pulmonary edema (CMS/HCC) Acute hypoxemic respiratory failure (CMS/HCC) Lactic acidosis Laboratory test Patient receiving extracorporeal membrane oxygenation (ECMO) Subjective: 24 hour events - as above Objective: Current vital signs Pulse 87, temperature 98.3 ??F (36.8 ??C), resp. rate 14, weight 105.3 kg (232 lb 2.3 oz), SpO2 95%. 24 hour BP and temperature range BP: -- Temp (24hrs), Av.8 ??F (37.1 ??C), Min:96.7 ??F (35.9 ??C), Max:99.7 ??F (37.6 ??C) Input/Output 06/120 - 06/14 0659 In: 6291.9 [I.V.:6191.9] Out: 6175 [Urine:5550; Drains:625] PHYSICAL EXAM: Neuro: Following commands off of sedation HEENT: intubated Cardiac: paced Pulm: non labored, coarse Abdomen: softly distended, hypoactive bowel sounds Skin: dry Extremities: warm Data Review: BMP: Recent Labs 06/12/25173506/13/25 0404 06/14/25 0308 GLUCOSE 229* 149* 101* BUN 20 24* 27* CREAT 1.03 0.86 0.91 NA 143 141 138 K 4.0 4.4 5.0 CL 110* 107 104 CO2 20* 24 25 ANIONGAP 13 10 9 MG 2.1 1.9 2.4 PO4 1.9* 4.9* 3.0 estimated creatinine clearance is 96.5 mL/min (by C-G formula based on SCr of 0.91 mg/dL). LFTs: Recent Labs 06/12/25173506/13/25 0404 06/14/25 0308 ALKPHOS 66 62 64 ALT 140* 125* 103* AST 265* 246* 178* BILITOTAL 0.5 0.5 0.6 ALBUMIN 2.6* 3.0* 2.8* CBC: Recent Labs 06/13/2540306/13/25 2334 06/14/25 0308 WBC 15.4* 13.2* 11.6* HGB 9.9* 8.7* 8.8* HCT 28.8* 26.0* 26.5* PLT 154 118* 124* MCV 92.0 94.5 95.0 Coagulation: Recent Labs 06/11/25 2325 06/12/25 0542 06/13/25 1258 06/13/25 1536 06/13/252007 PT 12.0* -- -- -- -- INR 0.9 -- -- -- -- APTT 25.1 < > >249.0* 156.9* 40.7* < > = values in this interval not displayed. ABG: Lab Results Component Value Date/Time SPECIMENSOU Arterial 06/14/2025 03:05 AM SPECIMENSOU Arterial 06/14/2025 03:05 AM PHBLOODPOC 7.47 (H) 06/14/2025 03:05 AM QZD4TMX 39 06/14/2025 03:05 AM PO2POC 68 (L) 06/14/2025 03:05 AM VJI8TGM 28 (H) 06/14/2025 03:05 AM V0SKANDV 96 06/14/2025 03:05 AM OCC3SMP 30 (H) 06/14/2025 03:05 AM BEPOC 5 (H) 06/14/2025 03:05 AM LACTATE 1.1 06/14/2025 03:05 AM PATIENTTEMP 37.0 06/14/2025 03:05 AM PHTEMPCORR 7.47 (H) 06/14/2025 03:05 AM PEQ1ZYUIGT 39 06/14/2025 03:05 AM KZ1YRAJVGE 68 (L) 06/14/2025 03:05 AM Lactic acid: Lab Results Component Value Date/Time LACTATE 1.1 06/14/2025 03:05 AM LACTATE 1.2 06/13/2025 11:07 PM LACTATE 1.5 06/13/2025 07:20 PM LACTATE 11.5 (HH) 06/12/2025 05:42 AM Radiology: Relevant imaging reviewed Assessment and Plan Neuro/Psych: Acute metabolic encephalopathy in the setting of cardiac arrest and critical illness: Remains neuro intact Sedation as above Cardiovascular/Fluids: Inferior STEMI-cardiogenic shock Requiring mechanical circulatory support with peripheral VA ECMO LVEF preserved as per previous echo Repeat TTE pending Maintain on low-dose epinephrine infusion for inotropic support TVP in place placed on backup rate Lactic acid trending down Pulmonary: Acute hypoxic respiratory failure-multifactorial in etiology secondary to acute infectious process plus pulmonary edema Initiate diuresis CAD further infectious workup DuoNebs as needed GI/NUT: NPO SUP, Pepcid Renal/LYTES/Acid-Base: GÉNESIS-nonoliguric Renal function is improving Initiate gentle diuresis Infectious Disease: Streptococcal pneumonia H. influenzae pneumonia Continue IV meropenem plus IV vancomycin for 72 hours in the setting of semisterile procedure, willde-escalate thereafter Hem/Onc/Coag: Hemoglobin and platelets stable DVTp, heparin infusion Endocrine: Stress-induced/steroid-induced hyperglycemia Insulin infusion Musculoskeletal/Skin: Skin care per bedside nursing routine Family communication: Extensive conversation with patient's significant other and nephew at the bedside Reportedly patient significant other does live with the patient but is not legally to the patient Patient son is en route to [facility]-contact information is in the paper chart Critical care time: 120 minutes excluding discussion with the family/procedure time. The high probability of sudden, clinically significant deterioration in the patient's condition required the highest level of my preparedness to intervene urgently. The services I provided to this patient were to treat and/or prevent clinically significant deterioration that could result in decomposition or . Services included the following: chart data review, reviewing nursing notes and/or old charts, documentation time, organizational consultant collaboration regarding findings and treatment options, medication orders and management, direct patient care, vital sign assessments and ordering, interpreting and reviewing diagnostic studies/lab tests. It did not include time spent performing other billable procedures. Signed Zenaida Michel MD Critical Care Medicine Portions of the record may have been created with voice recognition software. Occasional wrong-wordor `[id number]?? substitutions may have occurred due to the inherent limitations of voice recognition software. Read the chart carefully and recognize, using context, where substitutions have occurred. Please call if questions arise. Some part of the chart may have been copied forward. Copied forward data have been reviewed and and edited accordingly. * Shawn Langley, PHARMACIST - 06/12/2025 3:16 PM CDT Vancomycin Consult to Pharmacy Current Antibiotic Therapies Vancomycin Day # 1 Also cefepime Serum creatinine: 1.05 mg/dL 06/12/25 1342 Estimated creatinine clearance: 80.3 mL/min NOTE: This calculation is potentially inaccurate in acute and/or chronic kidney disease and over/under weight patients, and thus is only an estimation of renal function Assessment: Isaac Franklin is a 65 y.o. male who is starting Vancomycin per pharmacy to dose for suspected sepsis, unknown source. Dosing body weight is 80 kg (AdjW), baseline labs are as follows: Scr 1.05, estCrCl 80.3 mL/min. WBC count = 20.7k today, patient has been afebrile today. Sputum culture awaitingcollection. Plan: 1. Begin Vancomycin 1500mg IV q24 hours. 2. We will initially plan to utilize trough-only monitoring on this patient with a target trough of11-15 mcg/mL. Plan level on 06/14 and adjust dose if needed at that time. 3. Continue to monitor renal function daily. Pharmacy will continue to monitor the patient's labs. We will follow-up with daily progress note for Vancomycin and Aminoglycoside Consults and will write a progress note in the future if any additional dosage adjustment is needed on other renal consults. Subjective/Objective: Isaac Franklin is a 65 y.o. male Temp (24hrs), Av.9 ??F (37.2 ??C), Min:98.2 ??F (36.8 ??C), Max:99.1 ??F (37.3 ??C) Pulse 76 Temp 99.1 ??F (37.3 ??C) Resp 14 SpO2 100% WBC Date/Time Value Ref Range Status 06/12/2025 05:42 AM 20.7 (H) 4.8 - 10.8 K/uL Final 06/11/2025 11:25 PM 14.2 (H) 4.2 - 9.1 K/uL Final PLATELETS Date/Time Value Ref Range Status 06/12/2025 05:42 AM 217 140 - 440 K/uL Final 06/11/2025 11:25 PM 256 130 - 400 K/uL Final BUN Date/Time Value Ref Range Status 06/12/2025 01:42 PM 18 8 - 23 mg/dL Final 06/12/2025 05:42 AM 16 8 - 23 mg/dL Final 06/11/2025 11:25 PM 13 8 - 23 mg/dL Final CREATININE Date/Time Value Ref Range Status 06/12/2025 01:42 PM 1.05 0.67 - 1.17 mg/dL Final 06/12/2025 05:42 AM 0.91 0.67 - 1.17 mg/dL Final 06/11/2025 11:25 PM 0.58 (L) 0.67 - 1.17 mg/dL Final Thank you for the consult and involving us in the care of this patient, we will continue to monitor. Shawn Langley PHARMACIST * Shawn Langley, PHARMACIST - 06/12/2025 3:15 PM CDT PHARMACY CONSULT SERVICE PROTOCOL: A ???CONSULT TO PHARMACY?? order has been placed on this patient per Hospital Pharmacy policy- [facility] Clinical Pharmacy Services. This order can be found on the [facility] and authorizes pharmacy tomanage the dosing and monitoring of consulted medications as follows: Pharmacy will order the initial doses and any labs deemed clinically necessary to dose a consulted medication. These initial orders will be signed ???Per Protocol?? under the name of the provider who placed the ???CONSULT TO PHARMACY?? order. Pharmacy will have the authority to modify the doses and order any labs deemed clinically necessaryfor consulted medications on subsequent days as long as the ???CONSULT TO PHARMACY?? order remainsactive on the MAR. Orders for dosing changes and follow-up labs will be signed ???Per Protocol?? in [facility]. The name of the provider signed on the follow-up orders for cosignature will be assigned as follows: Consults for patients whose antimicrobials are being managed by members of the [employer] or Hospitalist physician groups: If the original authorizing provider is no longer the attending physician for the patient, responsibility for cosignature of the follow-up medication orders and labs will transfer from the original authorizing provider to the current attending physician. Consults for patients whose antimicrobials are being managed by any other provider: Responsibility for cosignature of the follow-up medication orders and labs will remain with the original authorizing provider of the ???CONSULT TO PHARMACY?? order. Any attending physician has the authority to cancel pharmacy dosing/monitoring and resume dosing/monitoring of the medications without pharmacy assistance at any time by discontinuing the ???CONSULT TO PHARMACY?? order from the [facility]. This protocol has been approved by the [facility] Pharmacy and Therapeutics Committee. Cosigned by Zenaida Michel MD at 06/20/2025 1:55 PM CDT * Taco Montoya - 06/12/2025 11:04 AM CDT Reason for Visit: Best Practice Advisory Patient spiritual issues identified summary of patient???s most significant issue(s): Isaac's spouse is in need of accomodation support to better enable her care of him during this time. Spouse has limited speaking capacity at this time; expect her to speak softly. Family: Spouse present Rebekah/values: None stated Needs/hopes resources: The family has people looking after things at home, but needs support for Isaac's spouse while she is far from home. Spiritual interventions Utilized presence and active listening to explore feelings, stressors, perceptions, questions/concerns, and coping patterns of Spouse Comfort/reassurance provided;Identify barriers to care;Emotional support;Grieving process facilitated ADMINISTRATIVE PERSONAL ASSISTANT???S ASSESSMENT OF PATIENT???S LEVEL OF DISTRESS: Severe Outcomes of Care Reassurance and comfort provided. Made contact with the [facility] and information was passed on to Spouse. Goals of Spiritual Care Resident Care Manager Plan Spiritual Care Services remain available for referral PRN. Recommendations for Healthcare Team As spiritual needs/distress arise, please contact Spiritual Care Services. We will follow up as needed. Thank you for this referral. Resident Care Manager Taco Montoya Spiritual Care Team [phone] Cosigned by Delma Taylor at 06/12/2025 4:43 PM CDT * Prince Farr MD - 06/12/2025 8:32 AM CDT Cardiology Progress Note Patient: Isaac Franklin / 65 y.o. / male : 1960 Today's Date: 06/12/2025 SUBJECTIVE: Mr. Franklin continues to be intubated and sedated. Per bedside RN intermittently following commands. Current medicines reviewed. Chart reviewed. Recent Cardiac Testing: OBJECTIVE: Pulse 81 Temp 98.3 ??F (36.8 ??C) Resp 14 SpO2 96% The range of BP in the last 24 hours is:BP: (121-196)/(76-109) Intake/Output Summary (Last 24 hours) at 06/12/2025 0916 Last data filed at 06/12/2025 0711 Gross per 24 hour Intake -- Output 1200 ml Net -1200 ml General appearance:critically ill Neck: jugular venous distension present. Lungs: crackles bilaterally Heart: S1 and S2 normal. 2/6 systolic murmur present. Abdomen: soft and non-tender. Extremities: no edema Data Review: Laboratory & imaging data reviewed CBC: Recent Labs 06/11/25232406/12/25 0542 WBC 14.2* 20.7* HGB 15.5 12.7* PLT 256 217 BMP: Recent Labs 06/11/25232406/12/25 0542 GLUCOSE 177* 477* BUN 13 16 CREAT 0.58* 0.91 NA 138 139 K 4.0 3.4* CO2 24 14* MG 1.9 4.3* TROPONIN T, BASELINE 5TH GEN Date Value Ref Range Status 06/11/2025 6 <=15 ng/L Final Cardiac telemetry monitoring: paced rhythm with rate at 60 bpm ASSESSMENT: Principal Problem: ST elevation myocardial infarction involving right coronary artery Active Problems: Cardiogenic shock (CMS/HCC) Complete heart block (CMS/HCC) Cardiac arrest with ventricular fibrillation (CMS/HCC) CHB (complete heart block) ST elevation myocardial infarction (STEMI) 65-year-old male who initially presented to the outside hospital with chest pain. He was diagnosed with inferior STEMI. He also had VT/VF arrest for which he was defibrillated and CPR was performed. He was subsequently transferred here for further care. He emergently went to the [facility] and underwent PCI of proximal to mid right coronary artery. Intra-aortic balloon pump and temporary pacemaker were also placed in addition to performing right heart catheterization. On arrival in the ICU, he had refractory VT/VF arrest. This was treated with prolonged cardiopulmonary resuscitation but protocol. He had multiple rounds of defibrillation, medications including epinephrine, magnesium, calcium, bicarbonate as well as antiarrhythmics including lidocaine and amiodarone (boluses as well as infusion). Refer to medication documentation from for details. Over drive pacing was also attempting with no benefit. Pacemaker back up rate then set at 60bpm. ECMO team was activated. He underwent bedside ECMO cannulation. Intra-aortic balloon pump was left in place for LV unloading. 06/12- Reportedly following commands. Continues to require mechanical and inoptropic support(on Epinephrine and norepinephrine). Pacemaker setting reset. Output reduced to 4mA. VVI. Backup rate. Incessant VT/VF arrest. Refractory to multiple defibrillations and antiarrhythmic Inferior STEMI s/p primary PCI of proximal to mid right coronary artery Cardiogenic shock S/p ECMO cannulation S/p IABP placement. 06/12- Appropriately augmenting. Appropriate position on chest X ray. Complete heart block Currently has temporary pacemaker. Tested and settings adjusted. History of tobacco use Recommendations/Plan; Repeat ECG shows sinus rhythm with rate 61bpm. Inferior lead Q waves with improved ST segments. Continue hemodynamic support with mechanical and inotropic support as needed. Continue dual antiplatelet therapy with aspirin 81 mg daily ticagrelor 90 mg twice daily. Continue amiodarone per protocol. Continue lidocaine infusion at 2 mg/min. Continue atherosclerotic risk factor modification Heparin per ECMO protocol/cardiothoracic surgical team. Echocardiogram reviewed. Limited echo tomorrow. If patient decompensates- would recommend stat echofor evaluation of effusion. Continue diuresis. Discussed with felting machine operator helper team who will assist with PA catheter placement. Critical care time: 32 min excluding discussion with the family/procedure time. The high probability of sudden, clinically significant deterioration in the patient's condition required the highest level of my preparedness to intervene urgently. The services I provided to this patient were to treat and/or prevent clinically significant deterioration that could result in decomposition or . Services included the following: cardiopulmonary resuscitation, chart data review, reviewing nursing notes and/or old charts, documentation time, organizational consultant collaboration regarding findings and treatmentoptions, medication orders and management, direct patient care, vital sign assessments and ordering, interpreting and reviewing diagnostic studies/lab tests. It did not include time spent performing other billable procedures. Prince Yordan MD Interventional Cardiology Portions of the record may have been created with voice recognition software. Occasional wrong-wordor `[id number]?? substitutions may have occurred due to the inherent limitations of voice recognition software. Read the chart carefully and recognize, using context, where substitutions have occurred. Please call if questions arise. Some part of the chart may have been copied forward. Copied forward data have been reviewed and and edited accordingly. Prince Yordan MD Interventional and Structural Customer Care Manager * Zenaida Michel MD - 06/12/2025 7:45 AM CDT Critical Care Medicine Intervention Note: Inferior STEMI- Cardiogenic shock requiring mechanical circulatory support Vasopressor/Inotropic support: Epinephrine gtt 0.15 mcg/kg/min Levophed gtt 0.15 mcg/kg/min Mechanical Circulatory Support: pVA ECMO- 5L/min flow, Sweep 6 - see separate management note IABP 1:1 Augmenting well Plan: Escalating vasopressor requirements this AM Given ongoing hemodynamic instability, will wean propofol gtt to off Will add dilaudid gtt for sedation Will add dilaudid gtt for sedation/vent comfort Patient is following commands with sedation holiday AM cxray reviewed: venous drainage cannula deeply placed Arterial return cannula visually appears to be very superficial Both ECMO cannulas repositioned at the bedside- flows reduced for repositioning Patient tolerated the procedure Will add broad spectrum antibiotics Infectious work up pending Génesis with metabolic acidosis Escalating sweep gas flow on ECMO Suspect this is 2/2 worsening metabolic acidosis Will initiate bicarbonate infusion Continue amiodarone gtt at 1mg/min , lidocaine gtt 2mg/min Repeat EKG without pacing , reviewed with interventional cardiology Continue ASA< Brillinta LFTs mildly increased, likely secondary to ischemic/congestive hepatopathy-we will trend daily Repeat TTE tomorrow Additional critical care time: 120 minutes excluding discussion with the family/procedure time. Thehigh probability of sudden, clinically significant deterioration in the patient's condition required the highest level of my preparedness to intervene urgently. The services I provided to this patient were to treat and/or prevent clinically significant deterioration that could result in decomposition or . Services included the following: chart data review, reviewing nursing notes and/or old charts, documentation time, organizational consultant collaboration regarding findings and treatment options, medication orders and management, direct patient care, vital sign assessments and ordering, interpreting and reviewing diagnostic studies/lab tests. It did not include time spent performing other billable procedures. Signed Zenaida Michel MD Critical Care Medicine Portions of the record may have been created with voice recognition software. Occasional wrong-wordor `[id number]?? substitutions may have occurred due to the inherent limitations of voice recognition software. Read the chart carefully and recognize, using context, where substitutions have occurred. Please call if questions arise. Some part of the chart may have been copied forward. Copied forward data have been reviewed and and edited accordingly. * Luisa Ya RN - 06/12/2025 7:28 AM CDT Cardiac rehab order noted and initiated for: Problem: STEMI Plan: Provide patient and/or family education for above problem prior to discharge. Goal: Patient and/or family will verbalize understanding of the education. [place]: Tomer Fernandes, from [place] Primary Customer Care Manager: Dr. Farr * Charles Magana MD - 06/12/2025 7:04 AM CDT [facility] ECMO Daily Management Note Isaac Franklin [id number] ECMO Day # 0 RPM Settin (06/12/25606) LPM Settin.77 (06/12/25606) Sweep Settin (06/12/25606) ECMO Data ABG:No results found for: PH , PCO2 , PO2 , HCO3 , BASEEXCESS , SO2 Vt Set (mL): 550 mL (06/12/25550) Set Rate (breaths/min): 14 bpm (06/12/25550) PEEP (cmH20): 10 cmH20 (06/12/25550) I have inspected the circuit and it does not show significant clot. Last documented vent settings Vt Set (mL): 550 mL (06/12/25550) Set Rate (breaths/min): 14 bpm (06/12/25550) PEEP (cmH20): 10 cmH20 (06/12/25550)Pulse 81, temperature 98.3 ??F (36.8 ??C), resp. rate 14, SpO2 96%. Physical Exam Temp (24hrs), Av.3 ??F (36.8 ??C), Min:98.2 ??F (36.8 ??C), Max:98.3 ??F (36.8 ??C) Intake/Output Summary (Last 24 hours) at 06/12/2025704 Last data filed at 06/12/2025 0600 Gross per 24 hour Intake -- Output 850 ml Net -850 ml Last documented weight: Admit Wt: Neuro: Responds to questions and nods, withdraws to pain Lungs: Crackles bilaterally Heart: Paced rhythm Abdomen: Soft distended Extremities: Cool Cannula: Venous: 25 Fr Left Femoral Arterial: 19 Fr Left Femoral IABP Right femoral Peripheral art line: R radial Laboratory data CBC: Recent Labs 06/11/25232406/12/2542 WBC 14.2* 20.7* HGB 15.5 12.7* HCT 43.9 38.3* PLT 256 217 BMP: Recent Labs 06/11/25232406/12/25 0542 GLUCOSE 177* 477* BUN 13 16 CREAT 0.58* 0.91 NA 138 139 K 4.0 3.4* CL 101 102 CO2 24 14* CA 9.7 12.9* CXR: confirmed cannula positions, Venous in the RA appendage per cts will leave it in for now Assessment/Plan: Acute STEMI/ Inferior NC Cardiogenic Shock Recurrent Ventricular fibrillation Cardiac arrest Acute on chronic hypoxemic respiratory failure Intra-aortic balloon pump support -Acute STEMI/inferior NC with RCA occlusion status post emergent left heart cath RCA stent placement - Refractory V-fib arrest-emergent bedside VA ECMO cannulation - Severe cardiogenic shock on both vasopressor and mechanical circulatory support-VA ECMO femoral femoral-status post ECMO placement V-fib improved-on flow of 4 L/min - Severe acute hypoxemic respiratory failure secondary to acute pulmonary edema - Good urine output-multiple pressors hold off on Lasix for now - Intra-aortic balloon pump for afterload reduction - Extremely critically ill * Elsy Billingsley - 06/12/2025 5:44 AM CDT Reason for Visit: Code Due to the care of the medical team, the patient was not available for spiritual care. There were no family members present at the time of my encounter. Please notify Spiritual Care at time of family's arrival. Goals of Spiritual Care Resident Care Manager Plan Spiritual Care Services remain available for referral PRN. Recommendations for Healthcare Team As spiritual needs/distress arise, please contact Spiritual Care Services. We will follow up as needed. Thank you for this referral. Resident Care Manager Elsy Billingsley Spiritual Care Team [phone] * Lise Vargas RN - 06/12/2025 4:55 AM CDT Around 0356 patient to vfib arrest, shocked 200 J,compressions started at 0356. IABP placed on standby. 300 amio given. 0359 vfib, 200J, 2 gm calcium, 1 mg epi 0400 vfib shocked 200J x2 (in a row), 2gm calcium, 2gm mag, compressions restarted (stopped 0401) 0401 vfib shock 200J, rhythm and pulse noted, 1 amp bicarb 0402 vfib shock 200 J, compressions 0402 0403 shock 200J vfib , 1 mg epi 0404 vfib shock 200 J, 1 amp bicarb 0405 vfib, 200 J, 200 lidocaine 0406 1 epi 0407 vfib shock 200 J, rhythm and pulse present, compressions stop, 2 gm calcium and 2 gm mag 0409 vfib, shock twice with 200J, compressions start, 150 amio 0410 vfib shock 200 J, amio drip started at 1 0411 continued compressions, vfib shock 200 J, levo drip running at 0.2 0412 1 epi 0413 vfib shock 200 J 0414 vfib shock 200 J, lido drip at 1 started 0415 vfib shock 200 J 0416 vfib shock twice in a row 200J,pulse and rhythm noted 0417 vfib shock 200 J, Levo and epi drips at 0.3 0419 vfib shock 200 J, 1 amp bicarb, stop compressions 0420 100 lido, 2 gm calcium 0421 vfib, shock 200J 0422 vfib 200J shock, 1 gm calcium 0425 vfib 200J, 150 amio,2 gm mag 0426 vfib shock 3x 200J, compressions briefly then stopped 0427 vfib shock 200J, epi and levo drips at 05 0428 vfib 200J x2 shocks, pulse and rhythm, epi and levo drips at 1 0430 vfib shock 200J, rhythm and pulse, epi and Levo drips at 2, around this time micropunctures being placed by physicians for VA ECMO 0433 vfib shock 200J, pulse and rhythm noted, compressions restarted 0432 and stopped 0433 0435 vfib 200J 0436 vfib 200J, 11884 units heparin, 1 amp bicarb 0437 1 amp bicarb 0438 vfib 200J,epi and Levo at 1.5 0439 vfib 200J 0441 epi and Levo paused 0443 vfib 200J 0444 epi and levo drips at 0.2 0445 epi and levo drips at .5 0447 vfib,patient self converted to NSR, 0448 lidocaine drip at 2 0453 VA ECMO started, 3300 RPM, 3 LPM 0455 levo and epi drips at .3 0456 levo and epi drips at .15 0457 levo and epi drips at 0.07 0458 ECMO 4000 RPM, 4 LPM 0501 IABP restarted 1:1 0504 epi and levo drips at 0.03 0525 levo and epi drips at 0.08, lidocaine at 2 still, and amio at 1 still DrsLakesha Present: Dr. Magana, Dr. Penny, Dr. Farr * Charles Magana MD - 06/12/2025 4:30 AM CDT ECMO CONSULTATION FORM Date of Service: 06/12/2025 Time: 6:59 AM PATIENT DEMOGRAPHICS: Isaac Franklin is a 65 y.o. (1960) male [id number] Last documented weight: There is no height or weight on file to calculate BMI. Consulted by Patient Location [id number] Date/Time 4 am 06/12/25 ECMO [employer] Charles Magana MD ECMO Surgeon INDICATION: Refractory V-fib arrest status post STEMI CPR ongoing CPR with multiple shocks for more than 30 minutes Other CONTRAINDICATIONS: None Metastatic cancer/Terminal malignancy (<12mo Life Expectancy), DNR no Multi-organ failure (lactate, LFTs, Severe Sepsis), Immunocompromised no CPR>15 min or unwitnessed cardiac arrest yes Acute Intracranial Bleed/Infarct/Neuro dysfunction. no Contraindication to systemic anticoagulation, received TPA no Severe aortic regurgitation (for V-A), Limited vascular access no Unrecoverable heart not a MCS/TXT candidate no Unrecoverable lung disease no CURRENT MEDICAL CONDITION CPR yes Code duration 60 min Did the patient have a perfusing rhythm at onset of ECMO no Return of spontaneous circulation prior to onset of ECMO >20 min yes Leading Diagnosis No admission diagnoses are documented for this encounter. Administered medications prior to ECMO epinephrine norepinephrine drips push doses of amiodarone and lidocaine lidocaine drip bicarbonate magnesium calcium Vital Signs Vitals: 06/12/25 0205 06/12/25 0511 06/12/25550 Pulse: 61 Resp: 17 SpO2: 92% 91% 91% Mental Status Intact yes Last time followed commands 5:30 AM post cannulation Neuro Imaging no Date/Time Intubated 06/12/25 Has it been > 7 days ? no Vt Set (mL): 550 mL (06/12/25550) Set Rate (breaths/min): 14 bpm (06/12/25550) PEEP (cmH20): 10 cmH20 (06/12/25550) FIO2%: 70 (06/12/25550) Peak Airway Pressure (cmH20): 23 cmH2O (06/12/25550) Mean Airway Pressure (cmH20): 18 cmH20 (06/12/25550) Paralyzed no ABG: Lab Results Component Value Date/Time SPECIMENSOU Venous 06/12/2025 05:29 AM SPECIMENSOU Venous 06/12/2025 05:29 AM PHBLOODPOC 7.29 (L) 06/12/2025 05:29 AM OVP0OAF 32 (L) 06/12/2025 05:29 AM PO2POC 514 (H) 06/12/2025 05:29 AM JJL5QUQ 15 (L) 06/12/2025 05:29 AM X0FKQLTB 100 (H) 06/12/2025 05:29 AM CGK3RKQ 16 (L) 06/12/2025 05:29 AM BEPOC -11 (L) 06/12/2025 05:29 AM LACTATE 11.5 (HH) 06/12/2025 05:42 AM PATIENTTEMP 37.0 06/12/2025 05:29 AM PHTEMPCORR 7.29 (L) 06/12/2025 05:29 AM KFR5SWZNMZ 32 (L) 06/12/2025 05:29 AM CV2KGFIOTY 514 (H) 06/12/2025 05:29 AM Flolan no Inotropes (Y/N. Dose range recent): Epinephrine yes Milrinone nO Dobutamine no Vasopressors (Y/N. Dose range most recent): Norepinephrine Y Vasopressin y Arrhythmias yes Lidocaine yes Amiodarone yes IABP yes Other MCS Device no Last EF echo ordered No results found for: BNP , CKMB Laboratory data BMP: Recent Labs 06/11/25232406/12/25 0542 GLUCOSE 177* 477* BUN 13 16 CREAT 0.58* 0.91 NA 138 139 K 4.0 3.4* CL 101 102 CO2 24 14* CA 9.7 12.9* Intake/Output Summary (Last 24 hours) at 06/12/2025 0659 Last data filed at 06/12/2025 0600 Gross per 24 hour Intake -- Output 850 ml Net -850 ml ESRD on Dialysis no GÉNESIS on CRRT no Chronic Liver Disease no Lab Results Component Value Date AST 225 (H) 06/12/2025 ALT 172 (H) 06/12/2025 Lab Results Component Value Date PT 12.0 (L) 06/11/2025 INR 0.9 06/11/2025 Hematology CBC: Recent Labs 06/11/25232406/12/25 0542 WBC 14.2* 20.7* HGB 15.5 12.7* HCT 43.9 38.3* PLT 256 217 IVC Filter no Decision to proceed with ECMO yes emergent Discussed goals of ECMO with family ? No-emergency cannulation * Prince Farr MD - 06/12/2025 3:50 AM CDT Cardiology Progress Note Patient: Isaac Franklin / 65 y.o. / male : 1960 Today's Date: 06/12/2025 SUBJECTIVE: Mr. Franklin continues to be intubated and sedated. Current medicines reviewed. Chart reviewed. Recent Cardiac Testing: OBJECTIVE: SpO2 92% The range of BP in the last 24 hours is:BP: (121-196)/(76-109) No intake or output data in the 24 hours ending 06/12/25 0515 General appearance:critically ill Neck: jugular venous distension present. Lungs: crackles bilaterally Heart: S1 and S2 normal. 2/6 systolic murmur present. Abdomen: soft and non-tender. Extremities: no edema Data Review: Laboratory & imaging data reviewed CBC: Recent Labs 06/11/255 WBC 14.2* HGB 15.5 PLT 256 BMP: Recent Labs 06/11/255 GLUCOSE 177* BUN 13 CREAT 0.58* NA 138 K 4.0 CO2 24 MG 1.9 TROPONIN T, BASELINE GEN Date Value Ref Range Status 06/11/2025 6 <=15 ng/L Final Cardiac telemetry monitoring: paced rhythm with rate a6 60 bpm ASSESSMENT: Principal Problem: ST elevation myocardial infarction involving right coronary artery Active Problems: Cardiogenic shock (CMS/HCC) Complete heart block (CMS/HCC) Cardiac arrest with ventricular fibrillation (CMS/HCC) CHB (complete heart block) ST elevation myocardial infarction (STEMI) 65-year-old male who initially presented to the outside hospital with chest pain. He was diagnosed with inferior STEMI. He also had VT/VF arrest for which he was defibrillated and CPR was performed. He was subsequently transferred here for further care. He emergently went to the Intramural Director and underwent PCI of proximal to mid right coronary artery. Intra-aortic balloon pump and temporary pacemaker were also placed in addition to performing right heart catheterization. On arrival in the ICU, he had refractory VT/VF arrest. This was treated with prolonged cardiopulmonary resuscitation but protocol. He had multiple rounds of defibrillation, medications including epinephrine, magnesium, calcium, bicarbonate as well as antiarrhythmics including lidocaine and amiodarone (boluses as well as infusion). Refer to medication documentation from for details. Over drive pacing was also attempting with no benefit. Pacemaker back up rate then set at 60bpm. ECMO team was activated. He underwent bedside ECMO cannulation. Intra-aortic balloon pump was left in place for LV unloading. VT/VF arrest. Refractory to multiple defibrillations and antiarrhythmic Inferior STEMI s/p primary PCI of proximal to mid right coronary artery S/p ECMO cannulation S/p IABP placement. Appropriately augmenting. Cardiogenic shock History of tobacco use Recommendations/Plan; Pending repeat ECG Continue hemodynamic support with mechanical and inotropic support as needed. Continue dual antiplatelet therapy with aspirin 81 mg daily ticagrelor 90 mg twice daily. Continue amiodarone per protocol. Continue lidocaine infusion at 2 mg/min. Continue atherosclerotic risk factor modification Heparin per ECMO protocol/cardiothoracic surgical team. Obtain transthoracic echocardiogram. radiation protection technician called. Continue diuresis. Discussed with felting machine operator helper team who will assist with PA catheter placement. I have discussed his critical condition with his via phone call. Critical care time: 95 min excluding discussion with the family/procedure time. The high probability of sudden, clinically significant deterioration in the patient's condition required the highest level of my preparedness to intervene urgently. The services I provided to this patient were to treat and/or prevent clinically significant deterioration that could result in decomposition or . Services included the following: cardiopulmonary resuscitation, chart data review, reviewing nursing notes and/or old charts, documentation time, organizational consultant collaboration regarding findings and treatmentoptions, medication orders and management, direct patient care, vital sign assessments and ordering, interpreting and reviewing diagnostic studies/lab tests. It did not include time spent performing other billable procedures. Prince Yordan MD Interventional Cardiology Portions of the record may have been created with voice recognition software. Occasional wrong-wordor `[id number]?? substitutions may have occurred due to the inherent limitations of voice recognition software. Read the chart carefully and recognize, using context, where substitutions have occurred. Please call if questions arise. Some part of the chart may have been copied forward. Copied forward data have been reviewed and and edited accordingly. Prince Yordan MD Interventional and Structural Customer Care Manager * Gerri Fraga PHARMACIST - 06/12/2025 3:45 AM CDT RX ANTICOAG MONITORING ORDERS Pharmacy to order, review, and report clinically significant changes in lab per [facility] Anticoagulation Protocol as follows: Orders for dosing changes and follow-up labs will be signed ???Per Protocol?? in Epic. The name ofthe provider signed on the follow-up orders for cosignature will be assigned as follows: Orders placed by members of the [employer] or Hospitalist physician groups: If the original ordering provider is no longer the attending physician for the patient, responsibility for cosignature of the follow-up medication orders and labs will transfer from the original ordering provider to the current attending physician. Orders placed by any other provider: Responsibility for cosignature of the follow-up medication orders and labs will remain with the original ordering provider of the anticoagulant order. Pharmacy will order appropriate labs as indicated by the [facility] Anticoagulation Monitoring policy located on [facility] intranet, unless already ordered. The medications that will be monitored include (but are not limited to): Low molecular weight heparin, heparin, and fondaparinux Direct Thrombin Inhibiors (argatroban, bivalirudin dabigatran lepirudin) Warfarin Direct oral anticoagulants (rivaroxaban, apixaban, edoxaban) Pharmacy will order labs for patients not on a heparin protocol, warfarin protocol, or anticoagulant protocol. Nursing to order labs required as indicated by those protocols. This policy is in compliance with the JCAHO National Patient Safety Goal 3E and authorized by the [facility] Pharmacy and Therapeutics Committee. Cosigned by Prince Farr MD at 06/13/2025 2:44 PM CDT documented in this encounter H&P Notes * Love Gonzalezee, BOTTOM SAW OPERATOR - 06/12/2025 4:36 AM CDT CRITICAL CARE MEDICINE HISTORY & PHYSICAL PCP: No primary care provider on file. Subjective: CC: Chest pain HPI: Isaac Franklin is a 65 y.o. male admitted 06/12/2025 after presenting to an outside ED with achief complaint of chest pain. Past medical history is limited (ED documentation states patient denied medical problems) but patient is a known tobacco user. [facility] pain which started approximately 2days prior to presentation and had progressively worsened. The patient noted associated nausea and denies radiation. While awaiting further evaluation at the OSH the patient sustained a VF arrest which was treated with ACLS and achieved ROSC after 2 rounds of resuscitation. EKG revealed inferior ST elevation and lateral ST depression. 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 LHC revealed 100% thrombus of the proximal RCA whichwas managed with AMBER. The patient warranted IABP for support and was transferred to ICU. Upon arrival to ICU the patient experienced VF arrest. ACLS was initiated. ROSC was intermittently achieved multiple times during resuscitative efforts but the patient continued to return to VF. The decision was made to cannulate for ECMO. This was completed and the patient was placed on VA ECMO. Database: Past Medical History: Diagnosis Date Patient denies medical problems No past surgical history on file. Medication List There are no discharge medications for this patient. Allergies: No Known Allergies Social History Tobacco Use Smoking status: Every Day Current packs/day: 1.00 Types: Cigarettes Smokeless tobacco: Not on file Substance Use Topics Alcohol use: Not on file No family history on file. REVIEW OF SYSTEMS: Unable to obtain Objective: Initial Vitals [06/12/25 0205] BP Pulse Resp Temp Temp src SpO2 92 % Patient Vitals for the past 8 hrs: SpO2 06/12/25 0205 92 % PHYSICAL EXAMINATION: Gen: Ill appearing, lying in bed Neuro: Sedated HEENT: AT/NC Cardiac: VF, CPR in progress Pulm: BVM Abdomen: Obese, rounded Skin: Cool, dry Extremities: No deformity Data Review: BMP: Recent Labs 06/11/25 2325 GLUCOSE 177* BUN 13 CREAT 0.58* NA 138 K 4.0 CL 101 CO2 24 ANIONGAP 13 MG 1.9 estimated creatinine clearance is 145.4 mL/min (A) (by C-G formula based on SCr of 0.58 mg/dL (L)). LFTs: Recent Labs 06/11/25 2325 ALKPHOS 105 ALT 12 AST 17 BILITOTAL 0.3 ALBUMIN 4.1 CBC: Recent Labs 06/11/25 2325 WBC 14.2* HGB 15.5 HCT 43.9 PLT 256 MCV 90.7 Coagulation: Recent Labs 06/11/25 2325 PT 12.0* INR 0.9 APTT 25.1 ABGs:No results found for: SPECIMENSOU , PHBLOODPOC , PKF2XRI , PO2POC , GFK5OOV , Q0BBLCIK , SBH7ZHY , BEPOC , LACTATE , PATIENTTEMP , PHTEMPCORR , GUU5BBPSLW , [id number] Radiology: Reviewed Assessment and Plan: Neuro/Psych: Acute metabolic encephalopathy in the setting of cardiac arrest and critical illness: At risk for hypoxic/anoxic injury ABG UDS TTM, maintain normothermia, avoid fever Cardiovascular/Fluids: Acute circulatory failure in the setting of cardiac arrest requiring VA ECMO cannulation Trend lactic Multiple vasopressors Initially requiring IABP now on VA ECMO VF Cardiac arrest secondary to STEMI Antiarrythmics STEMI s/p AMBER to RCA DAPT Cardiology following Pulmonary: Acute hypoxic respiratory failure in the setting of encephalopathy induced hypoventilation: VAP bundle Check PPP/sputum culture (at risk for aspiration) History of tobacco use PRN bronchodilators GI/NUT: NPO SUP, Pepcid Renal/LYTES/Acid-Base: Renal function panel pending Electrolytes pending Infectious Disease: At risk for aspiration: Check PPP/sputum culture Check UA Monitor off antimicrobials for now Hem/Onc/Coag: No acute concerns DVTp, SCDs Endocrine: No history of DM, monitor BG q4h Musculoskeletal/Skin: Skin care per bedside nursing routine Additional comments: Acutely ill 65 year old male with limited PMH presented to OSH with chest painultimately found to have inferior STEMI now s/p AMBER to RCA but with multiple VF cardiac arrests ultimately requiring VA ECMO cannulation. Family Communication: No family present, will attempt to reach via telephone Cosigned by Charles Magana MD at 06/12/2025 4:22 PM CDT Associated attestation - Charles Magana MD - 06/12/2025 4:22 PM CDT I reviewed the medical record including the applicable Critical Care Medicine APC note from today. I independently examined the patient I discussed the history, physical findings, laboratory findings, assessment and plan with the applicable APC on rounds.? I have reviewed the physical exam findings in the applicable resident/Fellow/BOTTOM SAW OPERATOR/PA's note; my notable physical exam findings include: There is no height or weight on file to calculate BMI. My initial exam was during the cardiac arrest with ongoing CPR Neuro: Initially patient was comatose reexamine after ECMO placement about 30 minutes into the ECMOrun patient was following commands CV: Intermittently paced rhythm Resp: Extensive crackles bilaterally decreased breath sounds Abdomen soft Ext: No pedal edema I have reviewed the assessment and plan in the applicable APC note. Notable amendments to the assessment and plan include: 65-year-old male presented to outside hospital with chest pain to [facility] [place], no history available as no family members are available at the bedside. Review of medical records indicate that the patient has history of smoking presented with chest discomfort and chest pain that intermittently was ongoing for past 2 days and progressively worsened this evening at outside hospital patient had a V-fib arrest ACLS was initiated and ROSC was achieved after 2 rounds of resuscitation EKG showedinferior ST segment elevation NC and lateral ST depression. Patient was emerg[facility] underwent left heart catheterization, drug-eluting stent x 2-overlapping stents proximal to mid right coronary artery which had 100% thrombotic occlusion mildly elevated left and right-sided filling pressures patient also placed on interactive balloon pump. Patient also had bradycardia during the procedure requiring transvenous pacemaker placement. Postprocedure was transferred to ICU within 10 minutes of arrival to ICU patient had a cardiac arrest. See separate CODE BLUE note. Prolonged cardiac arrest. With intermittent starting the CPR patient was made to proceed to VA ECMO due to refractory V-fib arrest, I paged Dr. Penny with cardiac surgery, and elected to proceed with bedside cannulation. I personally scrubbed and and assisted in VA ECMO cannulation. Patient was shocked multiple times during the cardiac arrest and resuscitated with IV epinephrine, norepinephrine drip, multiple ampules of bicarbonate pushes, calcium, magnesium,. ? Family Communication: I called and updated patient's spouse the patient is critically ill Critical care time 132 minutes was spent with this patient excluding procedures or teaching. Active problem list: Principal Problem: ST elevation myocardial infarction involving right coronary artery Active Problems: Cardiogenic shock (CMS/HCC) Complete heart block (CMS/HCC) Cardiac arrest with ventricular fibrillation (CMS/HCC) CHB (complete heart block) ST elevation myocardial infarction (STEMI) documented in this encounter Procedure Notes * Sara Carver RVT - 06/24/2025 11:07 AM CDT CARDIOVASCULAR SERVICES NONINVASIVE VASCULAR LAB- EXT 78001 TECHNOLOGIST PRELIMINARY WORKSHEET PHYSICIAN INTERPRETATION TO FOLLOW Patient Name: Isaac Franklin #: [id number] Date:06/24/2025 Tech Initials: FUNMILAYO Exam End Time: Critical Result Notification [] [x] RN (name)TYLER Notification Time: 10:51 AM Noninvasive lower extremity venous study performed on: [x] Right [x] Left A. [] There are no echo images consistent with acute venous obstruction throughout the venous system scanned. B. [x] Imaging is consistent with an obstruction in the [] Superficial venous [x] Deep venous system [] Right [x] Left [] Groin [] Groin [] Proximal Thigh [] Proximal Thigh [] Distal Thigh [] Distal Thigh [] Popliteal [] Popliteal [] Calf [x] Calf [] Softer echoes are considered consistent with acute venous obstruction [] Brighter echoes are considered consistent with chronic venous obstruction [] Soft echoes not well adhered to vein wall are considered consistent with freefloating obstruction [] Venous reflux is considered to be consistent with venous insufficiency Technologist Comments: * Sara Carver RVT - 06/24/2025 11:02 AM CDT CARDIOVASCULAR SERVICES NONINVASIVE VASCULAR LAB - EXT 33763 TECHNOLOGIST PRELIMINARY WORKSHEET PHYSICIAN INTERPRETATION TO FOLLOW Patient Name: Isaac Franklin #: [id number] Date:06/24/2025 [facility] Initials: MA Exam End Time: Critical Result Notification [] [x] RN (name)TYLER Notification Time: 10:51 AM NONINVASIVE VENOUS STUDY ARMS Noninvasive venous study performed on: [x] Right [x] Left A. [x] There are no echo images consistent with acuteDEEP venous obstruction throughout the venous system scanned. B. [x] Imaging is consistent with an obstruction in the [x] Superfical venous [] Deep venous sytem [x] Right [] Left [] Jugular [] Jugular [] Subclavian [] Subclavian [x] Upper Arm [] Upper Arm [x] Forearm [] Forearm [] Softer echoes are considered consistent with acute venous obstruction [] Brighter echoes are considered consistent with chronic venous obstruction [] Soft echoes not well adhered to vein wall are considered consistent with freefloating obstruction [] Venous reflux is considered to be consistent with venous insufficiency Technologist Comments: * Michelle Crews RN - 06/18/2025 9:00 AM CDT VASCULAR ACCESS TEAM Peripheral IV insertion PATIENT NAME: Isaac Franklin DATE OF : 1960 [facility]: [id number] DATE: 06/18/2025 Room: [address] [place] [address] Admit Date: 06/12/2025 Hospital day: LOS: 6 days Allergies:No Known Allergies PERIPHERAL IV INSERTION Ultrasound assessment was performed to assess adequacy of vascular anatomy Adequate vessel was located Insertion site cleansed for 30 seconds with Chlora-prep. Allowed to dry before initial needle stick. A 20 Gauge 2 Inch peripheral IV was successfully placed using ultrasound guidance in the right, lower Arm Secure port adhesive used Yes 1 attempts 45 minutes required to complete procedure Positive blood return noted Neutral pressure cap applied Catheter Flushed with 5ml of Normal Saline Transparent dressing applied with date, time and initials of cowoker inserting. LDA documentation is contained in EMR flowsheet Patient tolerated well. Michelle Crews RN * Zenaida Michel MD - 06/13/2025 4:00 PM CDT Images from the original note were not included. Pulmonary Artery Catheter Insertion Procedure Note Indications: Assess volume status and cardiac output Surgeon: Zenaida Michel MD Assistants: none Procedure Details Informed consent was obtained for the procedure, including possible sedation. Risks of lung perforation, hemorrhage, thrombosis, infection, arrhythmia, and adverse drug reaction were discussed. Time-Out Process performed, verified patient identification, verified procedure, verified site/side, verified correct patient position, special equipment/implants available. A time out was performed prior to the procedure. Sterile procedures employed-hand hygiene prior to donning gloves, gown, mask, barrier kit, full barrier drape. The skin above the rightinternal jugular vein was prepped with chlorohexidine. Local anesthesia was infiltrated into the skin and subcutaneous tissues. An 18-gauge needle was inserted intothe vein. A guide wire was easily inserted through the needle. While inserting the guide wire no arrhythmias occurred. The needle was withdrawn over the guide wire. A scalpel was used to puncture theskin entry site to facilitate catheter insertion. The dilator and the introducer sheath were passedover the guide wire into the vein. The guide wire was removed. Catheter was aspirated for blood andflushed. An IV line was connected to the central line to perform a drop test. The pulmonary arterycatheter was advanced through the sheath and the balloon was inflated at 20 cm. The catheter position was assessed by monitoring the pressure waveform. The catheter was advanced through the right atrium, right ventricle and into the pulmonary artery. Pressure waveform tracings adequate. A pulmonaryartery occlusion pressure was obtained after inflation of balloon with 0.75 - 1.0 ml of air. The catheter was sutured to the skin, a sterile dressing was applied. Initial PA catheter readings: RAP: 12 PA: Ultrasound Guidance: yes Complications: None; patient tolerated the procedure well. Condition: critically ill. Recommendations: CXR ordered to verify placement. Attending Attestation:This procedure was performed independently of the time included in today's admission/progress note(s). * Zenaida Michel MD - 06/13/2025 11:00 AM CDT Bronchoscopy Procedure Note Pre-op Diagnosis: Pneumonia, Atelectasis, Hypoxemic Respiratory Failure, and Mucous Plugging. Surgeon: Zenaida Michel MD Sedation/Analgesia: pre-existing Procedure Details Informed consent was NOT obtained for the procedure due to the emergent nature of the procedure. Time-Out Process performed, verified patient identification, verified procedure, verified correct patient position, special equipment available. Prior to the administration of pre-existing, adequate oxygenation and ventilation was assured by adjusting mechanical ventilator to 1.0 tino of oxygen and matching the patients minute ventilation. The bronchoscope was then advanced through the bronch adapter and the ET tube into the trachea. Endotracheal Tube: patent, clear of secretions Trachea: appeared normal Right and Left Mainstem: appeared normal Right Upper/Middle/Lower Lobes: partially occluded with secretions and copious secretions Left Upper/Lower Lobes: appeared normal and patent BAL: yes, right middle lung [place]: N/A EBL: none Complications: None; patient tolerated the procedure well. Significant mucus plugging involving RML, RLL Condition: critically ill . Attending Attestation: This procedure was performed independently of the time included in today's admission/progress note(s). * Rufina Pelayo RN - 06/12/2025 8:49 PM CDTAssociated Order(s): INSERT MIDLINE IV Procedure(s): INSERT MIDLINE IV Images from the original note were not included. VASCULAR ACCESS NOTE Midline PATIENT NAME: Isaac Franklin DATE OF : 1960 CSN: [id number] DATE: 06/12/2025 Room: [address] [place] [address] Admit Date: 06/12/2025 Hospital day: LOS: 0 days LINE STATUS: A Midline catheter was successfully inserted and can be used Adult Midline Catheter: Single Lumen 06/12/252024 Left: basilic vein (Active) 06/12/252024 basilic vein Earliest Known Present: Present on Admission: No Orientation: Left: Size: Number of Insertion Attempts: 1 Insertion: Patient Tolerance: tolerated well;appears comfortable Insertion: Pain Prevention: distraction Power Injectable Compatable: Yes Earliest Known Removed: Removal Indication: Removal Interventions: *Procedural Assist Insertion of Midline catheter WO SQ port >5 yrs 06/12/252024 Inserted Catheter Length (cm) 10 06/12/252024 Midline Catheter (WDL) WDL 06/12/252024 Extremity Circumference, Mid-Upper (cm) 33 06/12/252024 Patency flushes w/o difficulty;positive blood return 06/12/252024 Line Interventions system flushed;antimicrobial cap/s in place or applied to line and/or tubing 06/12/252024 Dressing Type/Securement antimicrobial patch/disc;transparent semipermeable dressing;secured with tape;site adhesive 06/12/252024 Dressing Changed Date 06/12/25 06/12/252024 Needleless Connector Changed Date 06/12/25 06/12/252024 Line Criteria Multiple infusions or med incompatibility 06/12/252024 Number of days: 0 MIDLINE PROCEDURE A Time Out process was completed prior to the midline placement procedure confirming correct patient, correct procedure site, and correct procedure being performed. Ultrasound assessment was performed to assess adequacy of vascular anatomy Adequate vessel was located with less than 45% catheter to vein ratio. Insertion site cleansed for 30 seconds with Chlora-prep Allowed to dry before initial needle stick. A midline was inserted in the basilic vein of the left upper arm using ultrasound guidance under sterile technique. 20 gauge, 10 cm Secure port adhesive used Yes 1 attempts 45 minutes required to complete procedure Positive blood return visualized. Neutral pressure cap applied Catheter flushed easily with 5ml of Normal Saline Transparent antimicrobial stabilization dressing applied Antimicrobial cap placed Dressing with date, time and initials of RN Patient tolerated procedure well. Primary care nurse notified of catheter placement CARE AND MAINTENANCE This is not a central line. NO BLOOD PRESSURES on arm with powerglide Requires physician order for blood draws The midline is indicated for use as a peripheral IV access only The midline is Power injectable - Securely apply neutral OR positive pressure cap when not in use. Use port protector cap when not in use Flush the catheter with 5 mL of normal saline every 12 hours or after each use, using a 10 mL or larger Flush the catheter with 10ml normal saline before blood draw and flush with 20 ml of normal saline after blood draws, using a 10ml or larger syringe. Waste 5ml prior to collection. Flush catheter once weekly when not in use(outpatient setting). Flush catheter using pulsating start-stop technique Always use 10ml syringe when flushing Do not forcefully flush against resistance Change dressing weekly and as needed using sterile technique VASCULAR ACCESS TEAM Peripheral IV insertion PERIPHERAL IV INSERTION Ultrasound assessment was performed to assess adequacy of vascular anatomy Adequate vessel was located Insertion site cleansed for 30 seconds with Chlora-prep. Allowed to dry before initial needle stick. A 20 Gauge 2 Inch peripheral IV was successfully placed using ultrasound guidance in the left, upper Arm Secure port adhesive used Yes 1 attempts 15 minutes required to complete procedure Positive blood return noted Neutral pressure cap applied Catheter Flushed with 5ml of Normal Saline Transparent dressing applied with date, time and initials of cowoker inserting. LDA documentation is contained in EMR flowsheet Patient tolerated well. Rufina Pelayo RN * Anyi Nelson RN - 06/12/2025 5:05 PM CDTAssociated Order(s): INSERT MIDLINE IV Procedure(s): INSERT MIDLINE IV Images from the original note were not included. VASCULAR ACCESS NOTE Midline PATIENT NAME: Isaac Franklin DATE OF : 1960 [facility]: [id number] DATE: 06/12/2025 Room: [address] [place] [address] Admit Date: 06/12/2025 Hospital day: LOS: 0 days LINE STATUS: A Midline catheter was successfully inserted and can be used Adult Midline Catheter: Single Lumen 06/12/25 1455 Right: cephalic vein (Active) 06/12/25 1455 cephalic vein Earliest Known Present: Present on Admission: No Orientation: Right: Size: Number of Insertion Attempts: 1 Insertion: Patient Tolerance: tolerated well Insertion: Pain Prevention: other (comment) Power Injectable Compatable: Yes Earliest Known Removed: Removal Indication: Removal Interventions: *Procedural Assist Insertion of Midline catheter WO SQ port >5 yrs 06/12/251703 Inserted Catheter Length (cm) 8 06/12/251703 Midline Catheter (WDL) WDL 06/12/251703 Extremity Circumference, Mid-Upper (cm) 31 06/12/251703 Patency flushes w/o difficulty;positive blood return 06/12/251703 Line Interventions antimicrobial cap/s in place or applied to line and/or tubing;system flushed;IV capped 06/12/251703 Dressing Type/Securement antimicrobial dressing;transparent dressing;secured w/ sterile tape strips;site adhesive 06/12/251703 Dressing Changed Date 06/12/25 06/12/251703 Needleless Connector Changed Date 06/12/25 06/12/251703 Line Criteria Multiple infusions or med incompatibility;Poor venous access 06/12/251703 Number of days: 0 MIDLINE PROCEDURE A Time Out process was completed prior to the midline placement procedure confirming correct patient, correct procedure site, and correct procedure being performed. Ultrasound assessment was performed to assess adequacy of vascular anatomy Adequate vessel was located with less than 45% catheter to vein ratio. Insertion site cleansed for 30 seconds with Chlora-prep Allowed to dry before initial needle stick. A midline was inserted in the Cephalic vein of the right upper arm using ultrasound guidance under sterile technique. 18 gauge, 8 cm Secure port adhesive used Yes 1 attempts 45 minutes required to complete procedure Positive blood return visualized. Neutral pressure cap applied Catheter flushed easily with 5ml of Normal Saline Transparent antimicrobial stabilization dressing applied Antimicrobial cap placed Dressing with date, time and initials of RN Patient tolerated procedure well. Primary care nurse notified of catheter placement Anyi Nelson RN CARE AND MAINTENANCE This is not a central line. NO BLOOD PRESSURES on arm with powerglide Requires physician order for blood draws The midline is indicated for use as a peripheral IV access only The midline is Power injectable - Securely apply neutral OR positive pressure cap when not in use. Use port protector cap when not in use Flush the catheter with 5 mL of normal saline every 12 hours or after each use, using a 10 mL or larger Flush the catheter with 10ml normal saline before blood draw and flush with 20 ml of normal saline after blood draws, using a 10ml or larger syringe. Waste 5ml prior to collection. Flush catheter once weekly when not in use(outpatient setting). Flush catheter using pulsating start-stop technique Always use 10ml syringe when flushing Do not forcefully flush against resistance Change dressing weekly and as needed using sterile technique * Zenaida Michel MD - 06/12/2025 8:30 AM CDT BEDSIDE DISTAL PERFUSION CANNULA PLACEMENT Procedure performed by: Zenaida Michel MD Hoist Operator: none Indication: Prevention of limb ischemia in the setting of peripheral veno- arterial extracorporeal membrane oxygenation (VA ECMO) via femoral artery cannulation Informed consent not obtained due to emergent nature of the procedure. Time-Out Process performed, verified patient identification, verified procedure, verified site/side, verified correct patient position, special equipment/implants available. Under sterile conditions (hand hygiene prior to donning gloves, gown, mask, sterile drape), the skin above the left femoral artery and pre-existing arterial return cannula was prepped with chlorhexidine. Ultrasound was used to identify the left superficial femoral artery distal to the ECMO arterial cannula insertion site. A 6Fr introducer sheath was placed into the artery under ultrasound guidance using the Seldinger technique. A 6Fr distal perfusion cannula was advanced over a guidewire into the left superficial femoral artery. Correct positioning was confirmed with ultrasound, ensuring flow directed distally toward the limb. ECMO flows were reduced, clamp was placed distal to the side port of the arterial return ECMO cannula. The cannula was connected to the side port of the ECMO arterial cannula using appropriate tubingand connectors. Cannula clamp was removed and ECMO flows were increased. Adequate flow through the perfusion cannula was verified by visualizing pulsatile flow. Zenaida Michel MD Critical Care Medicine * Charles Magana MD - 06/12/2025 7:05 AM CDT Ultrasound Imaging Guided Central Venous Catheter Insertion Procedure Note Procedure: Insertion of Central Venous Catheter Indications: vascular access Surgeon: Charles Magana MD Procedure Details Informed consent was NOT obtained due to the emergent nature of the procedure. Time-Out Process performed, verified patient identification, verified procedure, verified site/side, verified correct patient position, special equipment/implants available. The skin above the left femoral vein was prepped with chlorhexidine. Under sterile conditions (handhygiene prior to donning gloves, gown, mask, sterile drape), maximal barrier precautions (mask, hat, sterile gloves and gown for the person performing the procedure and full body drape on the patient) were utilized. Local anesthesia was infiltrated into the skin and subcutaneous tissues. An 18-gauge needle was inserted into the vein. A guide wire was easily inserted through the needle. While inserting the guide wire no arrhythmias occurred. The needle was withdrawn over the guide wire. A scalpel was used to puncture the skin entry site to facilitate catheter insertion. The dilator was passed over the guide wire and removed. A single-lumen, dialysis catheter was inserted into the vessel overthe guide wire. The guide wire was removed. Catheter was aspirated for blood, flushed, and secured with suture. A sterile dressing was applied to the catheter. EBL: 2 ml Ultrasound Guidance: yes Complications: None; patient tolerated the procedure well. Condition: Critically ill placed emergently during cardiac arrest with ongoing CPR. Attending Attestation:This procedure was performed independently of the time included in today's admission/progress note(s). Charles Magana MD,MP[facility] Pulmonary and Critical Care On 06/12/2025 at 7:05 AM. * Love Gonzalez NP - 06/12/2025 6:36 AM CDT Arterial Catheter Insertion Procedure Note Indications: Hypotension, Titration of vasoactive medication, and Frequent blood sampling Surgeon: Love Gonzalez NP Assistants: None Procedure Details Informed consent was NOT obtained due to the emergent nature of the procedure. Time-Out Process performed, verified patient identification, verified procedure, verified site/side, verified correct patient position, special equipment/implants available. Under sterile conditions (hand hygiene prior to donning gloves, gown, mask, sterile drape), the skin above the right radial. A modified Terry's Test was performed prior to placing the radial arterialcatheter to assure adequate collateral blood flow. artery was prepped with chlorhexidine. Local anesthesia was not infiltrated into the skin and subcutaneous tissues. A 21-gauge needle was inserted into the artery. A guide wire was easily inserted through the needle. The needle was withdrawn over the guide wire. The arterial catheter was advanced over the guide wire and the guide wire was removed. The arterial catheter was connected to the pressure tubing for the system. The catheter was flushed and the tracing was adequate. The catheter was sutured, a sterile dressing was applied. EBL: < 5 mL Complications: None; patient tolerated the procedure well. Condition: stable. Attending Attestation:This procedure was performed independently of the time included in today's admission/progress note(s). Cosigned by Charles Magana MD at 06/12/2025 6:58 AM CDT documented in this encounter Consult Notes * Robinson Diego Franklin - 06/25/2025 4:34 PM CDTAssociated Order(s): IP CONSULT TO PASTORAL SERVICES Reason for Visit: Advance Directive Patient spiritual issues identified summary of patient???s most significant issue(s): Isaac completes both forms of AD paperwork, andnames his significant other (Abi) as his medical DPOA. He states no immediate spiritual needs, and expresses appreciation for the assistance with the AD paperwork. Spiritual Care remains available 18/03 should any spiritual/emotional needs arise. Informed by nurse that Isaac is oriented and able to proceed with completing an advance directive. Spiritual interventions Forms Durable power of [employer] [facility] (A) and Health Care Declaration/Living Will (B) reviewed and completed. Outcomes of Care Forms Durable power of [employer] Care (A) and Health Care Declaration/Living Will (B) copied, filed into patient's chart, and faxed to medical records. Original form returned to patient. Resident Care Manager Plan: Spiritual Care Services remain available for referral PRN. Recommendations for Healthcare Team As spiritual needs/distress arise, please contact Spiritual Care Services. We will follow up as needed. Thank you for this referral. Chaplain Robinson Diego Spiritual Care Team [phone] * Kory Bradshaw V (Student) - 06/24/2025 12:49 PM CDTAssociated Order(s): IP CONSULT TO PASTORAL SERVICES Reason for Visit: Advance Directive Patient spiritual issues identified summary of patient???s most significant issue(s): Informed by nurse that Isaac is oriented and able to proceed with completing an advance directive. Spiritual interventions Forms Durable power of [employer] (A) and Health Care Declaration/Living Will (B) reviewed and left with patient for further review Outcomes of Care Education completed, informed patient of availability of hospital notaries to assist with completing form Durable power of [employer] (A) Resident Care Manager Plan: Spiritual Care Services remain available for referral PRN. Recommendations for Healthcare Team As spiritual needs/distress arise, please contact Spiritual Care Services. We will follow up as needed. Thank you for this referral. Chaplain Kory Bradshaw Spiritual Care Team [phone] * Rita Jorge, RN - 06/23/2025 10:32 PM CDTAssociated Order(s): IP CONSULT TO IV TEAM VASCULAR ACCESS CONSULT PATIENT NAME: Isaac Franklin DATE OF : 1960 CSN: [id number] DATE: 06/23/2025 Room: [address] [place] [address] Admit Date: 06/12/2025 Hospital day: LOS: 11 days INDICATION: troubleshoot current midline- keeps occluding w/difficulty flushing per primary RN; pt receiving cont Precedex, Heparin and scheduled Lasix IV EXCLUSIONS/CONSIDERATIONS: L upper arm basilic midline (11 days), L upper arm PIV (11 days) LAST RECORDED TEMP: Temp: 97.1 ??F (36.2 ??C) (06/23/25 191)] Assessment No Known Allergies Lab Results Component Value Date/Time CREAT 0.76 06/23/2025 02:49 AM BUN 28 (H) 06/23/2025 02:49 AM NA 140 06/23/2025 02:49 AM K 3.6 06/23/2025 02:49 AM KPOC 4.0 06/18/2025 07:15 AM CL 104 06/23/2025 02:49 AM CO2 23 06/23/2025 02:49 AM GFR >60 06/23/2025 02:49 AM Lab Results Component Value Date/Time WBC 21.7 (H) 06/23/2025 02:49 AM HGB 9.9 (L) 06/23/2025 02:49 AM HGBPOC 9.6 (L) 06/18/2025 07:15 AM HCT 30.1 (L) 06/23/2025 02:49 AM HCTPOC 29 (L) 06/18/2025 07:15 AM PLT 462 (H) 06/23/2025 02:49 AM MCV 95.3 06/23/2025 02:49 AM Lab Results Component Value Date/Time INR 0.9 06/11/2025 11:25 PM PT 12.0 (L) 06/11/2025 11:25 PM Past Medical History: Diagnosis Date ??? Patient denies medical problems Past Surgical History: Procedure Laterality Date ??? HX VASCULAR SURGERY N/A 06/17/2025 EXTRACORPOREAL CIRCULATION MEMBRANE OXYGENATION REMOVAL performed by Kim Penny MD at [facility] CARDIOVASCULAR OR ??? INSERT MIDLINE IV 06/12/2025 ??? INSERT MIDLINE IV 06/12/2025 GA CATH PLMT L HRT & ARTS W/NJX & ANGIO IMG S&I N/A 06/12/2025 Left heart cath performed by Prince Farr MD at [facility] INVASIVE CARDIOLOGY GA CATH PLMT L HRT & ARTS W/NJX & ANGIO IMG S&I N/A 06/13/2025 Left heart cath performed by Prince Farr MD at [facility] INVASIVE CARDIOLOGY ??? GA INSERTION INTRA-AORTIC BALLOON ASSIST DEV PERQ N/A 06/12/2025 Intra aortic balloon pump insertion performed by Prince Farr MD at [facility] IN[facility]IVE CARDIOLOGY ??? GA INSERTION INTRA-AORTIC BALLOON ASSIST DEV PERQ N/A 06/13/2025 Intra aortic balloon pump insertion performed by Prince Farr MD at [facility] INVASIVE CARDIOLOGY ??? GA INSJ/RPLCMT TEMP TRANSVNS 1CHMBR ELTRD/PM CATH N/A 06/12/2025 Pacemaker Temporary performed by Prince Farr MD at [facility] INVASIVE CARDIOLOGY ??? GA REMOVAL INTRA-AORTIC BALLOON ASSIST DEVICE PRQ N/A 06/13/2025 Intra aortic balloon pump removal performed by Prince Farr MD at [facility] IN[facility]IVE CARDIOLOGY GA RIGHT HEART CATH O2 SATURATION & CARDIAC OUTPUT N/A 06/12/2025 Right heart cath performed by Prince Farr MD at [facility] IN[facility]IVE CARDIOLOGY Current Facility-Administered Medications: ??? [COMPLETED] heparin injection 2,800 Units, 2,800 Units, IV, ONE time only, Rafi Hackett MD, 2,800 Units at 06/23/25 0441 ??? [COMPLETED] heparin injection 2,600 Units, 30 Units/kg, IV, ONE time only, Issac Rico MD, 2,600 Units at 06/23/25 1430 ??? heparin injection 2,600 Units, 30 Units/kg, IV, ONE time only, Issac Rico MD ??? gabapentin (NEURONTIN) 300 mg/6 mL (6 mL) oral solution 400 mg, 400 mg, Oral, every 8 hours, Ebony Lopez MD, 400 mg at 06/23/252145 ??? dexmedeTOMIDine in dextrose 5% (PRECEDEX) 400 mcg/100 mL (4 mcg/mL) infusion, 0-0.8 mcg/kg/hr, IV, titrate, Ebony Lopez MD, Last Rate: 13.16 mL/hr at 06/23/252158, 0.5 mcg/kg/hr at 06/23/252158 ??? losartan (COZAAR) tablet 12.5 mg, 12.5 mg, Oral, daily, Prince Farr MD, 12.5 mg at 06/22/25 1315 ??? metoprolol (LOPRESSOR) 5 mg/5 mL injection 2.5 mg, 2.5 mg, IV, ONE time only, Ebony Lopez MD ??? clonazePAM (KlonoPIN) tablet 0.25 mg, 0.25 mg, Oral, every 6 hours PRN, Ebony Lopez MD, 0.25mg at 06/22/25 2318 ??? metoprolol tartrate (LOPRESSOR) tablet 12.5 mg, 12.5 mg, Oral, BID, Prince Farr MD, 12.5 mg at 06/23/252145 ??? heparin in 0.45% NaCl 25,000 unit/250 mL infusion, 21 Units/kg/hr, IV, titrate, Issac Rico MD, Last Rate: 19.7 mL/hr at 06/23/252210, 21 Units/kg/hr at 06/23/252210 ??? QUEtiapine (SEROquel) tablet 50 mg, 50 mg, Oral, every 8 hours, Ebony Lopez MD, 50 mg at 06/23/252145 ??? sennosides-docusate sodium (SENNA-S) 8.6-50 mg per tablet 1 Tablet, 1 Tablet, Oral, BID, Ebony Lopez MD, 1 Tablet at 06/23/252145 ??? ziprasidone (GEODON) capsule 20 mg, 20 mg, Oral, BID WITH meals, Ebony Lopez MD, 20 mg at 06/23/251705 ??? furosemide (LASIX) injection 40 mg, 40 mg, IV, BID, 7 hours apart, Karlie Hamilton MD, 40 mg at1 170 ??? albuterol (PROVENTIL,VENTOLIN) 2.5 mg /3 mL (0.083 %) inhalation solution 2.5 mg, 2.5 mg, Inhalation, resp, every 4 hours PRN, Karlie Hamilton MD ??? sodium chloride flush injection 5 mL, 5 mL, IV, BID, Karlie Hamilton MD, 5 mL at 06/23/252206 ??? dextrose 5 % - sodium chloride 0.9 % infusion, , IV, see admin instructions, Karlie Hamilton MD ??? insulin lispro (HumaLOG,ADMELOG) injection 0-18 Units, 0-18 Units, subCUT, every 4 hours, Karlie Hamilton MD, 6 Units at 06/23/25 1302 ??? dextrose 5 % in water 250 mL flush bag 25 mL, 25 mL, IV, see admin instructions, Prince Farr MD ??? atropine injection 0.5 mg, 0.5 mg, IV, every 5 minutes PRN, Prince Farr MD ??? nitroglycerin (NITROSTAT) tablet 0.4 mg, 0.4 mg, Sublingual, every 5 minutes PRN, Prince Farr MD ??? polyethylene glycol (MIRALAX) packet 17 Gram, 17 Gram, Oral, BID, Karlie Hamilton MD, 17 Gram at 06/23/252145 ??? ondansetron (ZOFRAN) 4 mg/2 mL injection 4 mg, 4 mg, IV, every 6 hours PRN, Zenaida Michel MD ??? naloxone (NARCAN) 0.4 mg/mL injection 0.1-0.4 mg, 0.1-0.4 mg, IV, see admin instructions, Prince Farr MD ??? aspirin (SNOW CHEWABLE) chewable tablet 81 mg, 81 mg, Oral, daily, Prince Farr MD, 81 mg at1 0916 ??? ticagrelor (BRILINTA) tablet 90 mg, 90 mg, Oral, BID, Prince Farr MD, 90 mg at 06/23/252145 ??? rosuvastatin (CRESTOR) tablet 20 mg, 20 mg, Oral, daily BEDTIME, Prince Farr MD, 20 mg at 06/23/252145 ??? naloxone (NARCAN) 0.4 mg/mL injection 0.1-0.4 mg, 0.1-0.4 mg, IV, see admin instructions, Love Gonzalez, YVAN ??? SODIUM BICARBONATE 1 MEQ/ML (8.4 %) INTRAVENOUS SOLUTION (CABINET OVERRIDE), , , , ??? sodium chloride 0.9 % bolus solution 250 mL, 250 mL, IV, ONE time only, Charles Magana MD ??? HEPARIN (PORCINE) 1,000 UNIT/ML INJECTION SOLUTION (CABINET OVERRIDE), , , , ??? sodium chloride flush injection 10 mL, 10 mL, IV, BID, Zenaida Michel MD, 10 mL at 06/23/25 2207 PLAN Plan to assess midline and PIV access. Addendum: Assessed using ultrasound, found midline catheter tip within the basilic vein which is compressible. Clamp confirmed open, all connections secured and dressing intact without kinks noted.Gentle flushwith 10 ml NS using push-pause technique, line flushed easily with brisk blood return noted. Midline is patent and flushing without resistance. Left upper arm PIV tip found within compressible cephalic vein. Line flushed easily with blood return noted. Patient tolerated procedure well. Time spent 15 minutes. Rita Jorge RN * Anyi López FNP - 06/21/2025 10:51 AM CDTAssociated Order(s): IP CONSULT TO ELECTROPHYSIOLOGY CARDIOLOGY CONSULTATION [place], [place] Requesting Physician: Ebony Lopez MD Primary Customer Care Manager: Dr. Farr Consulting Customer Care Manager: Tri Toney Date of Admission: 06/12/2025 Today's Date: 06/21/2025 Reason for Consultation: STEMI/ Bradycardia/ Vtach HPI Isaac Franklin is a 65 y.o. male with a history of tobacco use presented 06/12/25 from [facility] with inferior STEMI after 2 rounds of CPR for Vfib arrest. 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 He then underwent AMBER thrombotic RCA with IABP support. POST PCI patient had incessant VT requiring multiple defibrillations and ecECMO support and he has been maintained on amiodarone gtt. He went back to earthmoving labourer on the for acute occlusion of RCA and underwent balloon angioplasty. Tele shows intermittent junctional escape and heart block for which electrophysiology has been consulted. He is maintained on amiodarone gtt with a QTC of 509 and HR in 60s; intermittent junctional escape 40 bpm. Pt still on precedex and ketamine also which are being weaned off. Labs and lytes without demonstrable abnormalities. No tsh for review. Echo showed EF of 25% on arrival improved to 45%.CXR with mild vascular congestion. Past Medical History: Diagnosis Date Patient denies medical problems Past Surgical History: Procedure Laterality Date HX VASCULAR SURGERY N/A 06/17/2025 EXTRACORPOREAL CIRCULATION MEMBRANE OXYGENATION REMOVAL performed by Kim Penny MD at [facility] CARDIOVASCULAR OR INSERT MIDLINE IV 06/12/2025 INSERT MIDLINE IV 06/12/2025 GA CATH PLMT L HRT & ARTS W/NJX & ANGIO IMG S&I N/A 06/12/2025 Left heart cath performed by Prince Farr MD at [facility] IN[facility]IVE CARDIOLOGY GA CATH PLMT L HRT & ARTS W/NJX & ANGIO IMG S&I N/A 06/13/2025 Left heart cath performed by Prince Farr MD at [facility] CARDIOLOGY GA INSERTION INTRA-AORTIC BALLOON ASSIST DEV PERQ N/A 06/12/2025 Intra aortic balloon pump insertion performed by Prince Farr MD at [facility] CARDIOLOGY GA INSERTION INTRA-AORTIC BALLOON ASSIST DEV PERQ N/A 06/13/2025 Intra aortic balloon pump insertion performed by Prince Farr MD at [facility] INV[facility]IVE CARDIOLOGY GA INSJ/RPLCMT TEMP TRANSVNS 1CHMBR ELTRD/PM CATH N/A 06/12/2025 Pacemaker Temporary performed by Prince Farr MD at [facility] CARDIOLOGY GA REMOVAL INTRA-AORTIC BALLOON ASSIST DEVICE PRQ N/A 06/13/2025 Intra aortic balloon pump removal performed by Prince Farr MD at [facility]IVE CARDIOLOGY GA RIGHT HEART CATH O2 SATURATION & CARDIAC OUTPUT N/A 06/12/2025 Right heart cath performed by Prince Farr MD at [facility]IVE CARDIOLOGY No medications prior to admission. No Known Allergies No family history on file. Social History Tobacco Use Smoking status: Every Day Current packs/day: 1.00 Types: Cigarettes Smokeless tobacco: Not on file Substance Use Topics Alcohol use: Not on file Review of Systems 14 point ROS negative or not pertinent with the exception of aforementioned in the HPI. Objective: BP 100/65 Pulse 65 Temp 99.5 ??F (37.5 ??C) (Axillary) Resp 20 Ht 5' 8 (1.727 m) Wt 94 kg (207 lb 3.7 oz) SpO2 95% BMI 31.51 kg/m?? Last documented weight: Weight: 94 kg (207 lb 3.7 oz) (06/21/25 0300) General: A/O x 3, well nourished, in no acute distress Head/ Neck: Normocephalic, Neck supple, no JVD, no carotid bruits. Lungs: Respirations even and unlabored. Breath sounds clear to auscultation Heart: Regular rate and rhythm. Normal S1 and S2. Abdomen: soft and nontender, bowel sounds present Extremities: FUENTES. Pulses palpable. No edema Skin: Warm, dry, intact. No obvious lesions or ecchymosis. Neuro/Musc: Normal muscle strength and tone. No focal deficits. Laboratory: Lab Results Component Value Date NA 144 06/21/2025 K 3.5 06/21/2025 CL 106 06/21/2025 CO2 29 06/21/2025 BUN 23 06/21/2025 CREAT 0.72 06/21/2025 CA 8.4 (L) 06/21/2025 @[LASTLIPIDS@ Lab Results Component Value Date WBC 12.1 (H) 06/21/2025 RBC 2.89 (L) 06/21/2025 HGB 9.1 (L) 06/21/2025 HCT 27.4 (L) 06/21/2025 PLT 302 06/21/2025 Lab Results Component Value Date PT 12.0 (L) 06/11/2025 No results found for: BNP No results found for: TSH , TSHULTRA , THYROIDSTIM TROPONIN T, BASELINE 5TH GEN Date Value Ref Range Status 06/11/2025 6 <=15 ng/L Final Assessment: Principal Problem: ST elevation myocardial infarction involving right coronary artery Active Problems: Cardiogenic shock (CMS/HCC) Acute diastolic heart failure Complete heart block (CMS/HCC) Cardiac arrest with ventricular fibrillation (CMS/HCC) CHB (complete heart block) ST elevation myocardial infarction (STEMI) Acute pulmonary edema (CMS/HCC) Acute hypoxemic respiratory failure (CMS/HCC) Lactic acidosis Laboratory test Patient receiving extracorporeal membrane oxygenation (ECMO) Diabetes mellitus S/P coronary artery stent placement Ventricular tachycardia (CMS/HCC) AV block Plan: INFERIOR STEMI s/p AMBER RCA 06/12/25 and POBA RCA 06/13/25. CARDIOGENIC SHOCK- off pressors/ off ECMO ISCHEMIC CARDIOMYOPATHY - EF 45%. GDMT when BP allows. Continue diuresis for mild volume Acute hypoxemic respiratory failure- wean O2 as able. VT-likely ischemically mediated by STEMI and re occlusion for which he has been revascularized. Recommend discontinue amiodarone and observe. IF has recurrent VT will require further treatment. Intermittent heart block/ junctional escape- likely medically induced. Recommend d/c amiodarone andwean precedex and observe. Caution with Seroquel. Check TSH RAMY Pritchard 06/21/25 Cosigned by Tri Price MD at 06/21/2025 5:08 PM CDT Associated attestation - Tri Price MD - 06/21/2025 5:08 PM CDT Agree with the above. I personally made and approved the management plan for this patient and take responsibility for the patient management. Problem List: Ventricular Fibrillation ST-Elevation Myocardial Infarction Cardiogenic Shock Consulted for bradycardia. Patient had complicated hospital course. He was admitted with an inferior STEMI and VF arrest and underwent PCI of RCA. He had temporary pacemaker wire in place due to CHB as well. He had recurrent VT/VF post-PCI and went back to the lab, after ECMO support, and found to have re- occlusion of the RCA stent and had POBA. No recurrence of VT/VF since then. Has some bradycardia seen but from what I can see on telemetry most of this is sinus bradycardia with some artifact on telemetry making interpretation difficult. Since he has been revascularized, we can stop the Amiodarone and also would wean off any other sedatives to allow for more heart rate. Would plan to continue with GDMT as tolerated. Repeat TTE in 90 days to re-assess cardiomyopathy and if EF remains <35%, we may need to proceed for ICD therapy for primary prevention. Would plan on LifeVest at discharge. If has recurrence of sustained VT/VF, we can consider ICD for secondary prevention. Thank you for this consult and please call with questions. Tri Price MD, FACC, [facility] Clinical Cardiac Electrophysiology [employer] [facility] * Michelle Crews RN - 06/18/2025 9:00 AM CDTAssociated Order(s): IP CONSULT TO IV TEAM VASCULAR ACCESS CONSULT PATIENT NAME: Isaac Franklin DATE OF : 1960 CSN: [id number] DATE: 06/18/2025 Room: [address] [place] [address] Admit Date: 06/12/2025 Hospital day: LOS: 6 days INDICATION: Assess midline EXCLUSIONS/CONSIDERATIONS: None LAST RECORDED TEMP: Temp: 100.9 ??F (38.3 ??C) (06/18/25 0700)] Assessment No Known Allergies Lab Results Component Value Date/Time CREAT 0.68 06/18/2025 03:36 AM BUN 21 06/18/2025 03:36 AM NA 142 06/18/2025 03:36 AM K 4.3 06/18/2025 03:36 AM KPOC 4.0 06/18/2025 07:15 AM CL 108 (H) 06/18/2025 03:36 AM CO2 23 06/18/2025 03:36 AM GFR >60 06/18/2025 03:36 AM Lab Results Component Value Date/Time WBC 10.9 (H) 06/18/2025 03:36 AM HGB 11.6 (L) 06/18/2025 03:36 AM HGBPOC 9.6 (L) 06/18/2025 07:15 AM HCT 35.4 (L) 06/18/2025 03:36 AM HCTPOC 29 (L) 06/18/2025 07:15 AM PLT 101 (L) 06/18/2025 03:36 AM MCV 95.2 06/18/2025 03:36 AM Lab Results Component Value Date/Time INR 0.9 06/11/2025 11:25 PM PT 12.0 (L) 06/11/2025 11:25 PM Past Medical History: Diagnosis Date ??? Patient denies medical problems Past Surgical History: Procedure Laterality Date ??? HX VASCULAR SURGERY N/A 06/17/2025 EXTRACORPOREAL CIRCULATION MEMBRANE OXYGENATION REMOVAL performed by Kmi Penny MD at [facility] CARDIOVASCULAR OR ??? INSERT MIDLINE IV 06/12/2025 ??? INSERT MIDLINE IV 06/12/2025 GA CATH PLMT L HRT & ARTS W/NJX & ANGIO IMG S&I N/A 06/12/2025 Left heart cath performed by Prince Farr MD at [facility] CARDIOLOGY GA CATH PLMT L HRT & ARTS W/NJX & ANGIO IMG S&I N/A 06/13/2025 Left heart cath performed by Prince Farr MD at [facility] CARDIOLOGY ??? GA INSERTION INTRA-AORTIC BALLOON ASSIST DEV PERQ N/A 06/12/2025 Intra aortic balloon pump insertion performed by Prince Farr MD at [facility] CARDIOLOGY ??? GA INSERTION INTRA-AORTIC BALLOON ASSIST DEV PERQ N/A 06/13/2025 Intra aortic balloon pump insertion performed by Prince Farr MD at [facility] CARDIOLOGY ??? GA INSJ/RPLCMT TEMP TRANSVNS 1CHMBR ELTRD/PM CATH N/A 06/12/2025 Pacemaker Temporary performed by Prince Farr MD at [facility] CARDIOLOGY ??? GA REMOVAL INTRA-AORTIC BALLOON ASSIST DEVICE PRQ N/A 06/13/2025 Intra aortic balloon pump removal performed by Prince Farr MD at [facility] CARDIOLOGY GA RIGHT HEART CATH O2 SATURATION & CARDIAC OUTPUT N/A 06/12/2025 Right heart cath performed by Prince Farr MD at [facility] CARDIOLOGY Current Facility-Administered Medications: ??? albuterol (PROVENTIL,VENTOLIN) 2.5 mg /3 mL (0.083 %) inhalation solution 2.5 mg, 2.5 mg, Inhalation, resp, every 4 hours PRN, Karlie Hamilton MD ??? [COMPLETED] acetaminophen (TYLENOL) tablet 650 mg, 650 mg, Oral, ONE time only, Karlie Hamilton MD, 650 mg at 06/18/25 0818 ??? methylnaltrexone (RELISTOR) 12 mg/0.6 mL injection 12 mg, 12 mg, subCUT, ONE time only, Karlie Hamilton MD ??? [COMPLETED] heparin injection 1,200 Units, 1,200 Units, IV, ONE time only, Karlie Hamilton MD, 1,200 Units at 06/17/25 1042 ??? [COMPLETED] furosemide (LASIX) injection 60 mg, 60 mg, IV, ONE time only, Karlie Hamilton MD, 60 mg at 06/17/25 1238 ??? sennosides-docusate sodium (SENNA-S) 8.6-50 mg per tablet 2 Tablet, 2 Tablet, NG Tube, BID, Karlie Hamilton MD, 2 Tablet at 06/18/25 0818 ??? [COMPLETED] lactulose (ENULOSE) 10 gram/15 mL oral solution 45 mL, 45 mL, Oral, TID, Karlie Hamilton MD, 45 mL at 06/18/25 0818 ??? [COMPLETED] potassium CHLORIDE 20 mEq/100 mL IVPB 20 mEq, 20 mEq, IV, every 2 hours, Karlie Hamilton MD, Stopped at 06/18/25 0412 ??? [DISCONTINUED] heparin 10,000 Units in sodium chloride 0.9% irrigation 500 mL IRRIGATION, , , intra-proc PRN, Kim Penny MD, 250 mL at 06/17/25 1537 ??? [DISCONTINUED] furosemide (LASIX) injection 60 mg, 60 mg, IV, ONE time only, Karlie Hamilton MD ??? dexmedeTOMIDine in dextrose 5% (PRECEDEX) 400 mcg/100 mL (4 mcg/mL) infusion, 0-1.5 mcg/kg/hr, IV, titrate, Karlie Hamilton MD, Last Rate: 13.16 mL/hr at 06/18/25 0846, 0.5 mcg/kg/hr at 06/18/25 0846 ??? dextrose 5 % - sodium chloride 0.9 % infusion, , IV, see admin instructions, Karlie Hamilton MD ??? insulin lispro (HumaLOG,ADMELOG) injection 0-18 Units, 0-18 Units, subCUT, every 4 hours, Karlie Hamilton MD, 3 Units at 06/16/252026 ??? cefTRIAXone (ROCEPHIN) 2,000 mg in sodium chloride 0.9% 50 mL IVPB (MBP), 2,000 mg, IV, every 12 hours (2 times daily), Karlie Hamilton MD, Last Rate: 118 mL/hr at 06/18/25 09, 2,000 mg at 06/18/25920 ??? QUEtiapine (SEROquel) tablet 75 mg, 75 mg, NG Tube, every 8 hours, Lise Lantigua PA, 75 mg at1 0453 ??? midazolam (VERSED) injection 1 mg, 1 mg, IV, every 4 hours PRN, Lise Lantigua PA, 1 mg at 06/18/25 0258 ??? norepinephrine bitartrate-D5W (LEVOPHED) 8 mg/250 mL (32 mcg/mL) infusion, 0-0.2 mcg/kg/min, IV, titrate, Karlie Hamilton MD, Stopped at 06/16/255 ??? [DISCONTINUED] midazolam (VERSED) 150 mg/30 mL (5 mg/mL) syringe, 0-6 mg/hr, IV, titrate, Ebony Lopez MD, Stopped at 06/17/25 1900 ??? sodium chloride flush injection 10 mL, 10 mL, IV, every 12 hours (2 times daily), Prince Farr MD, 10 mL at 06/18/25819 ??? sodium chloride flush injection 10 mL, 10 mL, IV, see admin instructions, Prince Farr MD, 10mL at 06/17/252010 ??? sodium chloride 0.9 % flush bag 25 mL, 25 mL, IV, see admin instructions, Prince Farr MD ??? dextrose 5 % in water 250 mL flush bag 25 mL, 25 mL, IV, see admin instructions, Prince Farr MD ??? atropine injection 0.5 mg, 0.5 mg, IV, every 5 minutes PRN, Prince Farr MD ??? nitroglycerin (NITROSTAT) tablet 0.4 mg, 0.4 mg, Sublingual, every 5 minutes PRN, Prince Farr MD ??? polyethylene glycol (MIRALAX) packet 17 Gram, 17 Gram, Oral, BID, Karlie Hamilton MD, 17 Gram at 06/18/25 0818 ??? heparin in 0.45% NaCl 25,000 unit/250 mL infusion, 19 Units/kg/hr (Adjusted), IV, titrate, Karlie Hamilton MD, Last Rate: 15.8 mL/hr at 06/18/25 0628, 19 Units/kg/hr at 06/18/25 0628 ??? ondansetron (ZOFRAN) 4 mg/2 mL injection 4 mg, 4 mg, IV, every 6 hours PRN, Zenaida Michel MD ??? [DISCONTINUED] sennosides-docusate sodium (SENNA-S) 8.6-50 mg per tablet 1 Tablet, 1 Tablet, NGTube, BID, Zenaida Michel MD, 1 Tablet at 06/17/25 0821 ??? sodium chloride flush injection 10 mL, 10 mL, IV, every 12 hours (2 times daily), Prince Farr MD, 10 mL at 06/18/25 0820 ??? sodium chloride flush injection 10 mL, 10 mL, IV, see admin instructions, Prince Farr MD, 10mL at 06/13/25 2131 ??? sodium chloride 0.9 % flush bag 25 mL, 25 mL, IV, see admin instructions, Prince Farr MD ??? dextrose 5 % in water 250 mL flush bag 25 mL, 25 mL, IV, see admin instructions, Prince Farr MD ??? naloxone (NARCAN) 0.4 mg/mL injection 0.1-0.4 mg, 0.1-0.4 mg, IV, see admin instructions, Prince Farr MD ??? aspirin (SNOW CHEWABLE) chewable tablet 81 mg, 81 mg, Oral, daily, Prince Farr MD, 81 mg at1817 ??? ticagrelor (BRILINTA) tablet 90 mg, 90 mg, Oral, BID, Prince Farr MD, 90 mg at 06/18/25817 ??? rosuvastatin (CRESTOR) tablet 20 mg, 20 mg, Oral, daily BEDTIME, Prince Farr MD, 20 mg at 06/17/252002 ??? naloxone (NARCAN) 0.4 mg/mL injection 0.1-0.4 mg, 0.1-0.4 mg, IV, see admin instructions, Love Gonzalez, YVAN ??? replacement reminder - Potassium, 1 Each, See Admin Instructions, see admin instructions, Love Gonzalez, YVAN ??? replacement reminder-Magnesium, 1 Each, See Admin Instructions, see admin instructions, Love Gonzalez NP ??? replacement reminder - Phosphorus, 1 Each, See Admin Instructions, see admin instructions, Love Gonzalez NP ??? replacement reminder-Calcium, 1 Each, See Admin Instructions, see admin instructions, Love Gonzalez NP ??? famotidine PF (PEPCID) 20 mg in sodium chloride 0.9% 10 mL injection, 20 mg, IV, BID, Love Gonzalez, YVAN, 20 mg at 06/18/25817 ??? SODIUM BICARBONATE 1 MEQ/ML (8.4 %) INTRAVENOUS SOLUTION (CABINET OVERRIDE), , , , ??? sodium chloride 0.9 % bolus solution 250 mL, 250 mL, IV, ONE time only, Charles Magana MD ??? amiodarone in dextrose (ISO-OSM) (NEXTERONE) 360 mg/200 mL (1.8 mg/mL) IV infusion, 0.5 mg/min,IV, continuous, Zenaida Michel MD, Last Rate: 16.67 mL/hr at 06/18/25627, 0.5 mg/min at 10/24/25 0628 ??? dextrose 5 % - sodium chloride 0.9 % infusion, , IV, see admin instructions, Zenaida Michel MD ??? dextrose 50% (D50) syringe 12.5 Gram, 12.5 Gram, IV, see admin instructions, Zenaida Michel MD ??? dextrose 50% (D50) syringe 25 Gram, 25 Gram, IV, see admin instructions, Zenaida Michel MD ??? glucagon HCL 1 mg/mL injection 1 mg, 1 mg, IM, see admin instructions, Zenaida iMchel MD ??? HEPARIN (PORCINE) 1,000 UNIT/ML INJECTION SOLUTION (CABINET OVERRIDE), , , , ??? sodium chloride flush injection 10 mL, 10 mL, IV, BID, Zenaida Michel MD, 10 mL at 06/18/25 0820 ??? sodium chloride flush injection 10 mL, 10 mL, IV, BID, Charles Magana MD, 10 mL at 06/18/25 0820 ??? [DISCONTINUED] HYDROmorphone (PF) in NS (DILAUDID) 30 mg/30 mL (1 mg/mL) intravenous solution, 0-1.2 mg/hr, IV, titrate, Neto Rivera MD, Last Rate: 1 mL/hr at 06/18/25 0848, 1 mg/hr at 06/18/25 0848 Facility-Administered Medications Ordered in Other Encounters: ??? [DISCONTINUED] ceFAZolin (ANCEF,KEFZOL) vial, , IV, intra-proc PRN, Benigno Barker COMPOSITE MECHANIC, 2,000 mg at 06/17/25 1538 ??? [DISCONTINUED] midazolam (VERSED) injection, , IV, intra-proc PRN, Benigno Barker, COMPOSITE MECHANIC, 2 mg at 06/17/25 1502 ??? [DISCONTINUED] rocuronium injection, , IV, intra-proc PRN, Benigno Barker, COMPOSITE MECHANIC, 50 mg at 06/17/25 1502 ??? [DISCONTINUED] sodium chloride 0.9 % infusion, , IV, intra-proc continuous PRN, Benigno Barker COMPOSITE MECHANIC, Stopped-Anesthesia at 06/17/25 1723 PLAN Assessed midline and the catheter was clotted off. Midline was removed and a piv was started. I spoke with the primary nurse and she stated a piv would be fine at this time. Michelle Crews, RN * Edwige Swift - 06/16/2025 5:16 PM CDTAssociated Order(s): IP CONSULT TO ETHICS RESOURCE Ethics Consultation Ethics Consultation is a supportive service to caregivers, patients, and families to assists in navigating complex medical situations. Recommendations provide guidance for our sincere efforts to honor the dignity of every individual through every stage of life. Consult Date and Time: 06/16/25 3pm Consult Requested By: Nursing Reason for Consultation: family dynamics and surrogate decision-making Recommendation and Follow-up Plan: Care team to utilize SO Abi as point of contact for small consents for lines/medications/etc. dueto accessibility and availability. For goals of care, EOL transitions, placements, etc. All loved ones to be included in a family meeting to serve as surrogate decision-makers in the best interest of the patient as [place] is a consensus state not a NOK state. If patient regains capacity, recommend completing a DPOA with spiritual care. Supporting Rationale: Patient autonomy is the bioethical principle that recognizes the rights of adult patients with decision-making capacity to make an informed decisions about their treatment. Respect for autonomy upholds patient preferences regarding goals of care. Only when a patient has lost decision-making capacity are surrogates and POA's empowered to make medical decisions on the patients behalf. Then, the decisions they make should be based in what they believe the patient would decide for themselves if they were able to do so. We should recognize however, that families can add valuable information that aids our medical decision-making and that they too want what's best for their loved one. We should let them know that their input is valuable and will receive consideration as part of an overall treatment plan. Patient lacks capacity per medical team. Isaac was admitted to [facility] ICU 06/12/25 for chest pain and cardiac workup. Patient in critical condition in ICU. Complex family dynamics. There is a significant Other Abi who used cas a but they got and back together. There are two daughters Karyn and Dana and a son Jose Alejandro as well as siblings. Children do not want significant other involved in decision- making and think son should be primary decision-maker. There is no DPOA or living will. [place] is not a NOK statebut a consensus state which means all loved ones (blood and non-blood) have the same authority to serve as surrogate decision-makers in the best interest of the patient. A consensus is recommended ifpossible. A consensus does not mean unanimous agreement but that a procedural process occurred where everyone had the chance to be heard. Care team could go with a majority. Everyone seems to have the best interest of the patient at heart. Abi has a long standing relationship with patient and mayhave more insight into patient wishes and preferences than the children. Care team to utilize Codys most accessible point of contact for simple consents for lines and medications as she is bedsidebut all goals of care decisions/EOL transition/placement should be discussed with all loved ones tomas family meeting. If patient regains capacity recommend completing a DPOA with spiritual care. ERD 25: Decisions by the designated surrogate should be faithful to Mosque moral principles and to the person???s intentions and values, or if the person???s intentions are unknown, to the person???s best interests. In the event that an advance directive is not executed, those who are in a position to know best the patient???s wishes--usually family members and loved ones--should participate in the treatment decisions for the person who has lost the capacity to make health care decisions. ERD 33. The well-being of the whole person must be taken into account in deciding about any therapeutic intervention or use of technology. Therapeutic procedures that are likely to cause harm or undesirable side-effects can be justified only with a proportionate benefit to the patient. Background: Per provider note, Isaac Franklin is a 65 y.o. male admitted 06/12/2025 after presenting to an outside ED with a chief complaint of chest pain. Past medical history is limited (ED documentation states patient denied medical problems) but patient is a known tobacco user. On the day prior to admission the patient presented to [facility] with a chief complaint of chest pain which started approximately 2 days prior to presentation and had progressively worsened. The patient noted associated nausea and denies radiation. While awaiting further evaluation at the OSH the patient sustained aVF arrest which was treated with ACLS and achieved ROSC after 2 rounds of resuscitation. EKG revealed inferior ST elevation and lateral ST depression. 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 LHC revealed 100% thrombus of the proximal RCA which was managed with AMBER. The patient warranted IABP for support and was transferred to ICU. Upon arrival to ICU the patient experienced VF arrest. ACLS was initiated. ROSC was intermittently achieved multiple times during resuscitative efforts but the patient continued to return to VF. The decision was made to cannulate for ECMO. This was completed and the patient was placed on VA ECMO Present for Discussion: Case discussed with nursing and case management. Attending provider updated. Thank you for including ethics in the care of Khoa Franklin. For further questions or concerns, please contact me at [phone]. Edwige Swift MTS, PhD, [facility] Ethics [employer] Collision Estimator * Rosa Martins, RD - 06/14/2025 9:21 AM CDTAssociated Order(s): IP CONSULT TO NUTRITION SERVICES Reason For Nutrition Assessment: Consult, and TF, Nutrition Diagnosis Malnutrition Nutrition Diagnosis: (at risk) (06/14/25899) Problem: Inadequate oral intake (06/14/25899) Etiology: Inadequate protein, energy, nutrient intake;Acute illness;Mechanical causes or motor causes (new intubation) (06/14/25899) Signs/Symptoms: Intake history/diet recall;Change in functional ability (06/14/25899) Interventions/Recommendations: Start TF of Nepro at 10mL/hr, advance to trickle feed goal of 20mL/hr q6h. Provides 864 kcal, 29 g protein, 77 g carb, 349 ml free water daily Monitor weights and labs Nutrition Interventions: Monitor weight trends;Tube feeding (06/14/25899) Goals: No N/V, Stable weight, TF to meet assessed needs, and Tolerate nutrition source Monitoring/Evaluation: TF intake and tolerance, stool output, weight, labs, and skin integrity Nutrition Discharge Plan: TBD See below for full assessment Assessment 65 y.o.male admitted with ST elevation myocardial infarction involving right coronary artery. PMH includes tobacco use. Pt's reporting recent dx of prostate cancer around November of this year. Subjective: Pt is intubated, pt's hx provide by his at bedside. Pt is intubated and sedated onversed, precedex, not on propofol or pressors at this time. Pt is on VA ECMO. Plans to start trickle feeds today, will provide renal formula as K trending up. Will monitor and adjust TF as needed. Ptis without evidence of malnutrition at this time; is at risk due to intubation and ECMO. Food and Nutrition Related History: Pt is generally with good appetite at home. Has not had issues with N/V recently, occasionally with looser stools. Pt does not take vitamins/supplements. Weight changes: Pt's reporting wt is often in the lower 200s however has likely gained some wtas has been baking treats recently. Noted wt is up from admission however could be fluid related. Subjective Global Assessment: Weight: During the past 2 weeks the patient's weight has: Not Changed (06/14/25899) Food Intake: Compared to normal intake, over the past month the patient's intake has been: Unchanged (THREAD DRESSER) (06/14/25899) Symptoms: Patient reports the following problems that have kept them from eating enough during the past 2 weeks: No problems eating (THREAD DRESSER) (06/14/25899) Activities & Function: Over the past month the patient generally rates their activity as: : Lowenergy but in bed or chair less than half the day (06/14/25899) Total score = SGA Score : 2 (06/14/25899) Nutrition Focused Exam Physical Findings- Summary: Malnutrition Nutrition Diagnosis: (at risk) (06/14/25899) Orbital: Flattened fat pads but not depressed (mild) (06/14/25899) Facial cheeks (buccal pads): Unable to assess (see comments) (06/14/25899) Biceps and triceps: Ample or thick fold of fat tissue between fingers (no findings) (06/14/25899) Ribs - lower back, mid axillary line: Chest is full, round, ribs do not show (no findings) (06/14/25899) Subcutaneous Fat Loss Assessment: No findings (06/14/25899) Temporal: See/feel well defined muscles (no findings) (06/14/25899) Clavicle: May be visible but not prominent (no findings) (06/14/25899) Shoulder (deltoid muscle): Rounded, curved at junction between neck and shoulder, and at shoulder joint. Able to grasp muscle tissue at shoulder joint (no findings) (06/14/25899) Scapula: Unable to assess (06/14/25899) Interosseous: Muscle bulges (no findings) (06/14/25899) Thigh (quadriceps muscle): Not able to reduce. Well rounded, no depressions (no findings) () Knee: Muscle protrudes, bone not prominent (no findings) (06/14/25899) Calf (gastrocnemius muscle): Unable to assess (06/14/25899) Muscle Wasting Assessment: No findings (06/14/25899) Edema: Normal contour with a barely perceptible pit (no findings) (06/14/25899) Hand Refrigeration Engine Operator: Unable to assess (sedated) (06/14/25899) Percentage of Energy: Other (see comments) (meeting <50% estimated needs ~2 days) (06/14/25899) Percentage of Weight Loss: No history of significant wt loss (06/14/25899) Estimated Needs: Estimated Energy Target: 4413-9974 (06/14/25899) Estimated Protein Target: 105-140 (06/14/25899) Estimated Fluid Target : 1750 (06/14/25899) Nutrition Energy Formula: Calories per kilogram (06/14/25899) Weight Used for Formula: [place] weight (06/14/25899) Clinical Data: [place] body weight: 68.4 kg (150 lb 12.7 oz) Adjusted ideal body weight: 83.2 kg (183 lb 5.4 oz) Body mass index is 35.3 kg/m??. Admission:Weight: 107.4 kg (236 lb 12.4 oz) (06/13/25599) Weight Method: Actual (06/13/25599) Current:Weight: 105.3 kg (232 lb 2.3 oz) (06/14/25 0300) Wt Readings from Last 8 Encounters: 06/14/25 105.3 kg (232 lb 2.3 oz) 06/11/25 97.1 kg (214 lb) Labs Recent Labs 06/11/25 2325 06/12/25 0542 06/12/25 0941 06/12/25 1342 06/12/25 1445 06/12/25 1736 06/13/25 0404 06/14/25 0308 GLUCOSE 177* 477* -- 276* -- 229* 149* 101* BUN 13 16 -- 18 -- 20 24* 27* CREAT 0.58* 0.91 -- 1.05 -- 1.03 0.86 0.91 GFR >60 >60 -- >60 -- >60 >60 >60 NA 138 139 -- 141 -- 143 141 138 K 4.0 3.4* 2.8* 3.2* 3.3* 4.0 4.4 5.0 CO2 24 14* -- 17* -- 20* 24 25 ANIONGAP 13 23* -- 15 -- 13 10 9 CA 9.7 12.9* -- 10.8* -- 9.5 8.6* 8.3* MG 1.9 4.3* -- 2.5* -- 2.1 1.9 2.4 PO4 -- 7.4* -- -- -- 1.9* 4.9* 3.0 ALBUMIN 4.1 2.9* -- -- 3.0* 2.6* 3.0* 2.8* ALKPHOS 105 91 -- -- 81 66 62 64 ALT 12 172* -- -- 170* 140* 125* 103* AST 17 225* -- -- 326* 265* 246* 178* BILITOTAL 0.3 0.5 -- -- 0.5 0.5 0.5 0.6 Lab Results Component Value Date/Time PO4 3.0 06/14/2025 03:08 AM MG 2.4 06/14/2025 03:08 AM Current Diet and Intake: DIET NPO Strict Food/Meal: NPO (06/14/25 0700), , Skin: Vearisto Score: 14 (06/13/25 1900) Gastrointestinal: Last Bowel Movement (mm/dd/yyyy): 06/12/25 (06/12/251899) Access: [x]NG / OG []NJT, postpyloric tube []PEG / G-tube []PEJ / J-tube Verified by: XR Chest []Gastro-Jejunostomy tube Date: 06/12/25 Allergies: No Known Allergies Past Medical History: Diagnosis Date Patient denies medical problems Time spent:Consultation Time (mins): 30 mins (06/14/25 09) * Taco Wolf RN - 06/14/2025 7:09 AM CDT Cardiac rehab order noted and initiated for: Problem: STEMI, s/p AMBER x 2 Plan: Provide patient and/or family education for above problem prior to discharge. Goal: Patient and/or family will verbalize understanding of the education. [facility]: TOMER Fernandes (visiting from [place]) Primary Customer Care Manager: Dr. Farr * Rufina Pelayo RN - 06/12/2025 7:49 PM CDT VASCULAR ACCESS CONSULT PATIENT NAME: Isaac Franklin DATE OF : 1960 CSN: [id number] DATE: 06/12/2025 Room: [address] [place] [address] Admit Date: 06/12/2025 Hospital day: LOS: 0 days INDICATION: IV access EXCLUSIONS/CONSIDERATIONS: Patient is on multiple vesicant meds, just had a midline placed. LAST RECORDED TEMP: Temp: 99.7 ??F (37.6 ??C) (06/12/251899)] Assessment No Known Allergies Lab Results Component Value Date/Time CREAT 1.03 06/12/2025 05:36 PM BUN 20 06/12/2025 05:36 PM NA 143 06/12/2025 05:36 PM K 4.0 06/12/2025 05:36 PM KPOC 4.1 06/12/2025 07:21 PM CL 110 (H) 06/12/2025 05:36 PM CO2 20 (L) 06/12/2025 05:36 PM GFR >60 06/12/2025 05:36 PM Lab Results Component Value Date/Time WBC 19.4 (H) 06/12/2025 05:36 PM HGB 10.8 (L) 06/12/2025 05:36 PM HGBPOC 11.5 (L) 06/12/2025 07:21 PM HCT 31.7 (L) 06/12/2025 05:36 PM HCTPOC 35 (L) 06/12/2025 07:21 PM PLT 204 06/12/2025 05:36 PM MCV 94.1 06/12/2025 05:36 PM Lab Results Component Value Date/Time INR 0.9 06/11/2025 11:25 PM PT 12.0 (L) 06/11/2025 11:25 PM Past Medical History: Diagnosis Date ??? Patient denies medical problems Past Surgical History: Procedure Laterality Date ??? INSERT MIDLINE IV 06/12/2025 Current Facility-Administered Medications: ??? EPINEPHrine 4 mg/250 mL (16 mcg/mL) in sodium chloride 0.9% infusion, 0-0.8 mcg/kg/min, IV, titrate, Prince Farr MD, Last Rate: 36.41 mL/hr at 06/12/25 180, 0.1 mcg/kg/min at 06/12/25 180 ??? norepinephrine bitartrate-D5W (LEVOPHED) 8 mg/250 mL (32 mcg/mL) infusion, 0-0.2 mcg/kg/min, IV, titrate, Prince Farr MD, Last Rate: 21.85 mL/hr at 06/12/25 180, 0.12 mcg/kg/min at 06/12/25 180 ??? [COMPLETED] heparin injection 4,000 Units, 4,000 Units, IV, ONE time only, Doreen Ambrocio MD, 4,000 Units at 06/12/25 0245 ??? [COMPLETED] aspirin (SNOW) tablet 325 mg, 325 mg, NG Tube, ONE time only, Doreen Ambrocio MD, 325 mg at 06/12/25 0208 ??? [COMPLETED] sodium chloride 0.9 % infusion, , , continuous PRN, Prince Farr MD, Stopped at 06/12/25 0700 ??? sodium chloride flush injection 10 mL, 10 mL, IV, every 12 hours (2 times daily), Prince Farr MD, 10 mL at 06/12/25 0958 ??? sodium chloride flush injection 10 mL, 10 mL, IV, see admin instructions, Prince Farr MD ??? sodium chloride 0.9 % flush bag 25 mL, 25 mL, IV, see admin instructions, Prince Farr MD ??? dextrose 5 % in water 250 mL flush bag 25 mL, 25 mL, IV, see admin instructions, Prince Farr MD ??? atropine injection 0.5 mg, 0.5 mg, IV, every 5 minutes PRN, Prince Farr MD ??? nitroglycerin (NITROSTAT) tablet 0.4 mg, 0.4 mg, Sublingual, every 5 minutes PRN, Prince Farr MD ??? naloxone (NARCAN) 0.4 mg/mL injection 0.1-0.4 mg, 0.1-0.4 mg, IV, see admin instructions, Prince Farr MD ??? [] sodium chloride 0.9 % infusion, , IV, continuous, Prince Farr MD, Stopped at 06/12/25 1529 ??? aspirin (SNOW CHEWABLE) chewable tablet 81 mg, 81 mg, Oral, daily, Prince Farr MD, 81 mg at1 0958 ??? ticagrelor (BRILINTA) tablet 90 mg, 90 mg, Oral, BID, Prince Farr MD, 90 mg at 06/12/25 1721 ??? rosuvastatin (CRESTOR) tablet 20 mg, 20 mg, Oral, daily BEDTIME, Prince Farr MD ??? [Held by Provider] furosemide (LASIX) injection 40 mg, 40 mg, IV, BID, 7 hours apart, Prince Farr MD ??? [COMPLETED] PROPOFOL 10 MG/ML INFUSION WRAPPER (CABINET OVERRIDE), , , , , Stopped at 06/12/25 0800 ??? naloxone (NARCAN) 0.4 mg/mL injection 0.1-0.4 mg, 0.1-0.4 mg, IV, see admin instructions, Love Gonzalez, BOTTOM SAW OPERATOR ??? replacement reminder - Potassium, 1 Each, See Admin Instructions, see admin instructions, Love Gonzalez, BOTTOM SAW OPERATOR ??? replacement reminder-Magnesium, 1 Each, See Admin Instructions, see admin instructions, Love Gonzalez, BOTTOM SAW OPERATOR ??? replacement reminder - Phosphorus, 1 Each, See Admin Instructions, see admin instructions, Love Gonzalez NP ??? replacement reminder-Calcium, 1 Each, See Admin Instructions, see admin instructions, Love Gonzalez NP ??? famotidine PF (PEPCID) 20 mg in sodium chloride 0.9% 10 mL injection, 20 mg, IV, BID, Love Gonzalez, BOTTOM SAW OPERATOR, 20 mg at 06/12/25 0957 ??? SODIUM BICARBONATE 1 MEQ/ML (8.4 %) INTRAVENOUS SOLUTION (CABINET OVERRIDE), , , , ??? AMIODARONE 150 MG/100 ML (1.5 MG/ML) IN DEXTROSE, ISO-OSMOTIC IV (CABINET OVERRIDE), , , , ??? CALCIUM CHLORIDE 100 MG/ML (10 %) INTRAVENOUS SYRINGE (CABINET OVERRIDE), , , , ??? SODIUM BICARBONATE 1 MEQ/ML (8.4 %) INTRAVENOUS SOLUTION (CABINET OVERRIDE), , , , ??? sodium chloride 0.9 % bolus solution 250 mL, 250 mL, IV, ONE time only, Charles Magana MD ??? amiodarone in dextrose (ISO-OSM) (NEXTERONE) 360 mg/200 mL (1.8 mg/mL) IV infusion, 1 mg/min, IV, continuous, Charles Magana MD, Last Rate: 33.33 mL/hr at 06/12/25 1547, 1 mg/min at 06/12/25 1547 ??? lidocaine in dextrose 5% 4 mg/mL (0.4 %) infusion, 2 mg/min, IV, continuous, Charles Magana MD, 2,000 mg at 06/12/25 0410 ??? [COMPLETED] potassium CHLORIDE 20 mEq/100 mL IVPB 20 mEq, 20 mEq, IV, every 2 hours, Charles Magana MD, Stopped at 06/12/25 1431 ??? HYDROmorphone (PF) in NS (DILAUDID) 30 mg/30 mL (1 mg/mL) intravenous solution, 0-1.2 mg/hr, IV, titrate, Zenaida Michel MD, Last Rate: 2 mL/hr at 06/12/25 1300, 2 mg/hr at 06/12/25 1300 ??? vasopressin (VASOSTRICT) 20 Units in dextrose 5 % 100 mL infusion, 0.05 Units/min, IV, continuous, Zenaida Michel MD, Last Rate: 15 mL/hr at 06/12/25 1546, 0.05 Units/min at 06/12/25 1546 ??? insulin regular (HumuLIN R,NovoLIN R) 1 Units/mL in sodium chloride 0.9 % infusion, 0-25 Units/hr, IV, titrate, Zenaida Michel MD, Last Rate: 2.5 mL/hr at 06/12/25 191, 2.5 Units/hr at 06/12/25 191 ??? dextrose 5 % - sodium chloride 0.9 % infusion, , IV, see admin instructions, Zenaida Michel MD ??? dextrose 50% (D50) syringe 12.5 Gram, 12.5 Gram, IV, see admin instructions, Zenaida Michel MD ??? dextrose 50% (D50) syringe 25 Gram, 25 Gram, IV, see admin instructions, Zenaida Michel MD ??? glucagon HCL 1 mg/mL injection 1 mg, 1 mg, IM, see admin instructions, Zenaida Michel MD ??? midazolam (VERSED) 150 mg/30 mL (5 mg/mL) syringe, 0-6 mg/hr, IV, titrate, Zenaida Michel MD, Last Rate: 0.4 mL/hr at 06/12/25 1137, 2 mg/hr at 06/12/25 1137 ??? heparin in 0.45% NaCl 25,000 unit/250 mL infusion, 9 Units/kg/hr, IV, titrate, Zenaida Michel MD, Last Rate: 8.7 mL/hr at 06/12/25 1515, 9 Units/kg/hr at 06/12/25 1515 ??? HEPARIN (PORCINE) 1,000 UNIT/ML INJECTION SOLUTION (CABINET OVERRIDE), , , , ??? ASPIRIN 81 MG CHEWABLE TABLET (CABINET OVERRIDE), , , , ??? potassium CHLORIDE 20 mEq/100 mL IVPB 20 mEq, 20 mEq, IV, every 2 hours, Zenaida Michel MD, Last Rate: 50 mL/hr at 06/12/25 194, 20 mEq at 06/12/25 194 ??? cefePIME (MAXIPIME) 1,000 mg in sodium chloride 0.9% 50 mL IVPB (MBP), 1,000 mg, IV, every 12 hours (2 times daily), Zenaida Michel MD, Stopped at 06/12/25 1606 ??? VANCOMYCIN CONSULT TO PHARMACY, , See Admin Instructions, see admin instructions, Zenaida Michel MD ??? vancomycin in sodium chloride 0.9% (VANCOCIN) 1500 mg/515 mL IVPB 1,500 mg, 1,500 mg, IV, every24 hours, Zenaida Michel MD, Stopped at 06/12/25 1746 ??? [COMPLETED] sodium bicarbonate 1 mEq/mL (8.4 %) vial 100 mEq, 100 mEq, IV, ONE time only, Zenaida Michel MD, 100 mEq at 06/12/25 1709 ??? [COMPLETED] albumin, human (BUMINATE) 5 % injection 25 Gram, 25 Gram, IV, ONE time only, Zenaida Michel MD, Stopped at 06/12/25 1800 ??? sodium chloride flush injection 10 mL, 10 mL, IV, BID, Zenaida Michel MD ??? sodium bicarbonate 150 mEq in sterile water 1,150 mL infusion, 100 mL/hr, IV, continuous, Zenaida Michel MD, Last Rate: 100 mL/hr at 06/12/251814, 100 mL/hr at 06/12/251814 ??? [DISCONTINUED] midazolam (VERSED) injection, , , ONE time PRN, Prince Farr MD, 1 mg at 06/12/257 ??? [DISCONTINUED] fentaNYL (PF) (SUBLIMAZE) 50 mcg/mL injection, , , ONE time PRN, Prince Farr MD, 50 mcg at 06/12/257 ??? [DISCONTINUED] lidocaine 1 % (XYLOCAINE) injection, , , ONE time PRN, Prince Farr MD, 10 mL at 06/12/25 0215 ??? [DISCONTINUED] phenylephrine syringe, , , ONE time PRN, Prince Farr MD, 100 mcg at 06/12/25 0222 ??? [DISCONTINUED] heparin injection, , , ONE time PRN, Prince Farr MD, 4,000 Units at 06/12/251 ??? [DISCONTINUED] nitroglycerin in 5 % dextrose (TRIDIL) 1,000 mcg in sodium chloride 0.9 % 5 mL injection, , , ONE time PRN, Prince Farr MD, 2 mL at 06/12/25 0239 ??? [DISCONTINUED] iopamidoL (ISOVUE-300) 61% injection (single-use vial), , , ONE time PRN, Prince Farr MD, 140 mL at 06/12/25 0318 ??? [DISCONTINUED] fentaNYL (PF) (SUBLIMAZE) 50 mcg/mL injection, , , ONE time PRN, Prince Farr MD, 50 mcg at 06/12/25 0323 ??? [DISCONTINUED] midazolam (VERSED) injection, , , ONE time PRN, Prince Farr MD, 2 mg at 06/12/25 0323 ??? [DISCONTINUED] ticagrelor (BRILINTA) tablet, , , ONE time PRN, Prince Farr MD, 180 mg at 06/12/25 0330 ??? [DISCONTINUED] heparin in 0.45% NaCl 25,000 unit/250 mL infusion, 12 Units/kg/hr, IV, titrate, Prince Farr MD, Stopped at 06/12/25 1407 ??? [DISCONTINUED] PROPOFOL 10 MG/ML INFUSION WRAPPER (CABINET OVERRIDE), , , , ??? [DISCONTINUED] FENTANYL (PF) 50 MCG/ML INJECTION SOLUTION (CABINET OVERRIDE), , , , ??? [DISCONTINUED] EPINEPHRINE 0.1 MG/ML INJECTION SYRINGE (CABINET OVERRIDE), , , , ??? [DISCONTINUED] ATROPINE 0.1 MG/ML INJECTION SYRINGE (CABINET OVERRIDE), , , , ??? [DISCONTINUED] NITROGLYCERIN 0.4 MG SUBLINGUAL TABLET (CABINET OVERRIDE), , , , ??? [DISCONTINUED] ONDANSETRON HCL (PF) 4 MG/2 ML INJECTION SOLUTION (CABINET OVERRIDE), , , , Facility-Administered Medications Ordered in Other Encounters: ??? [COMPLETED] etomidate (AMIDATE) injection 40 mg, 40 mg, IV, ONE time only, Luis Ramos MD, 40 mg at 06/12/25 0015 ??? [COMPLETED] succinylcholine (ANECTINE) 20 mg/mL injection 150 mg, 150 mg, IV, ONE time only, Luis Ramos MD, 150 mg at 06/12/25 0026 ??? [COMPLETED] ketamine 100 mg/mL injection 50 mg, 50 mg, IV, pre-proc one time, Luis Ramos MD, 50 mg at 06/11/25 2346 ??? [COMPLETED] midazolam (VERSED) injection 2 mg, 2 mg, IV, ONE time only, Luis Ramos MD, 2 mg at 06/12/25 0038 ??? [COMPLETED] midazolam (VERSED) injection 5 mg, 5 mg, IV, ONE time only, Luis Ramos MD, 5 mg at 06/12/25 0049 ??? [DISCONTINUED] propofol (DIPRIVAN) 10 mg/mL continuous infusion, 0-50 mcg/kg/min, IV, titrate, Luis Ramos MD, Stopped at 06/12/25 0110 ??? [COMPLETED] ondansetron (ZOFRAN) 4 mg/2 mL injection 4 mg, 4 mg, IV, ONE time only, Luis Ramos MD, 4 mg at 06/11/25 2347 ??? [COMPLETED] heparin injection 1,500 Units, 15 Units/kg, IV, ONE time only, Luis Ramos MD, 1,500 Units at 06/12/25 0006 ??? [DISCONTINUED] aspirin (SNOW CHEWABLE) chewable tablet 324 mg, 324 mg, Oral, ONE time only, Luis Ramos MD ??? [DISCONTINUED] morphine 2 mg/mL injection 2 mg, 2 mg, IV, every 2 hours PRN, Luis Ramos MD ??? [DISCONTINUED] nitroglycerin (NITROSTAT) tablet 0.4 mg, 0.4 mg, Sublingual, every 5 minutes PRN, Luis Ramos MD ??? [DISCONTINUED] metoprolol (LOPRESSOR) 5 mg/5 mL injection 5 mg, 5 mg, IV, ONE time only, Luis Ramos MD PLAN Plan to assess for vascular access ADDENDUM: Arrived at bedside and bedside staff additionally requests an additional PIV ADDENDUM: Spoke to Dr. Magana at bedside about this patient being on multiple infusions. He saidit is okay to place a midline. Rufina Pelayo RN * Anyi Nelson RN - 06/12/2025 4:27 PM CDT VASCULAR ACCESS CONSULT PATIENT NAME: Isaac Franklin DATE OF : 1960 CSN: [id number] DATE: 06/12/2025 Room: [address] [place] [address] Admit Date: 06/12/2025 Hospital day: LOS: 0 days INDICATION: Midline for IV medications EXCLUSIONS/CONSIDERATIONS: Current single lumen central in right femoral along with 2 PIV's in flowsheet LAST RECORDED TEMP: Temp: 99.1 ??F (37.3 ??C) (06/12/25 1400)] Assessment No Known Allergies Lab Results Component Value Date/Time CREAT 1.05 06/12/2025 01:42 PM BUN 18 06/12/2025 01:42 PM NA 141 06/12/2025 01:42 PM K 3.3 (L) 06/12/2025 02:45 PM KPOC 3.5 06/12/2025 03:18 PM CL 109 (H) 06/12/2025 01:42 PM CO2 17 (L) 06/12/2025 01:42 PM GFR >60 06/12/2025 01:42 PM Lab Results Component Value Date/Time WBC 20.7 (H) 06/12/2025 05:42 AM HGB 12.7 (L) 06/12/2025 05:42 AM HGBPOC 13.1 06/12/2025 03:18 PM HCT 38.3 (L) 06/12/2025 05:42 AM HCTPOC 39 06/12/2025 03:18 PM PLT 217 06/12/2025 05:42 AM MCV 95.5 06/12/2025 05:42 AM Lab Results Component Value Date/Time INR 0.9 06/11/2025 11:25 PM PT 12.0 (L) 06/11/2025 11:25 PM Past Medical History: Diagnosis Date ??? Patient denies medical problems No past surgical history on file. Current Facility-Administered Medications: ??? EPINEPHrine 4 mg/250 mL (16 mcg/mL) in sodium chloride 0.9% infusion, 0-0.8 mcg/kg/min, IV, titrYordan ortiz Prince, MD, Last Rate: 29.13 mL/hr at 06/12/25 1253, 0.08 mcg/kg/min at 06/12/25 1253 ??? norepinephrine bitartrate-D5W (LEVOPHED) 8 mg/250 mL (32 mcg/mL) infusion, 0-0.2 mcg/kg/min, IV, titrYordan ortiz Prince, MD, Last Rate: 18.21 mL/hr at 06/12/25 1046, 0.1 mcg/kg/min at 06/12/25 1046 ??? [COMPLETED] heparin injection 4,000 Units, 4,000 Units, IV, ONE time only, Doreen Ambrocio MD, 4,000 Units at 06/12/25 0245 ??? [COMPLETED] aspirin (SNOW) tablet 325 mg, 325 mg, NG Tube, ONE time only, Doreen Ambrocio MD, 325 mg at 06/12/25 0208 ??? [COMPLETED] sodium chloride 0.9 % infusion, , , continuous PRN, Prince Farr MD, 700 mL at 06/12/25 0317 ??? sodium chloride flush injection 10 mL, 10 mL, IV, every 12 hours (2 times daily), Prince Farr MD, 10 mL at 06/12/25 0958 ??? sodium chloride flush injection 10 mL, 10 mL, IV, see admin instructions, Prince Farr MD ??? sodium chloride 0.9 % flush bag 25 mL, 25 mL, IV, see admin instructions, Prince Farr MD ??? dextrose 5 % in water 250 mL flush bag 25 mL, 25 mL, IV, see admin instructions, Prince Farr MD ??? atropine injection 0.5 mg, 0.5 mg, IV, every 5 minutes PRN, Prince Farr MD ??? nitroglycerin (NITROSTAT) tablet 0.4 mg, 0.4 mg, Sublingual, every 5 minutes PRN, Prince Farr MD ??? naloxone (NARCAN) 0.4 mg/mL injection 0.1-0.4 mg, 0.1-0.4 mg, IV, see admin instructions, Prince Farr MD ??? [] sodium chloride 0.9 % infusion, , IV, continuous, Prince Farr MD, Stopped at 06/12/25 1529 ??? aspirin (SNOW CHEWABLE) chewable tablet 81 mg, 81 mg, Oral, daily, Prince Farr MD, 81 mg at1 0958 ??? ticagrelor (BRILINTA) tablet 90 mg, 90 mg, Oral, BID, Prince Farr MD ??? rosuvastatin (CRESTOR) tablet 20 mg, 20 mg, Oral, daily BEDTIME, Prince Farr MD ??? [Held by Provider] furosemide (LASIX) injection 40 mg, 40 mg, IV, BID, 7 hours apart, Prince Farr MD ??? [COMPLETED] PROPOFOL 10 MG/ML INFUSION WRAPPER (CABINET OVERRIDE), , , , , Stopped at 06/12/25 0800 ??? naloxone (NARCAN) 0.4 mg/mL injection 0.1-0.4 mg, 0.1-0.4 mg, IV, see admin instructions, Love Gonzalez, BOTTOM SAW OPERATOR ??? replacement reminder - Potassium, 1 Each, See Admin Instructions, see admin instructions, Love Gonzalez, YVAN ??? replacement reminder-Magnesium, 1 Each, See Admin Instructions, see admin instructions, Love Gonzalez, YVAN ??? replacement reminder - Phosphorus, 1 Each, See Admin Instructions, see admin instructions, Love Gonzalez, YVAN ??? replacement reminder-Calcium, 1 Each, See Admin Instructions, see admin instructions, Love Gonzalez, YVAN ??? famotidine PF (PEPCID) 20 mg in sodium chloride 0.9% 10 mL injection, 20 mg, IV, BID, Love Gonzalez, BOTTOM SAW OPERATOR, 20 mg at 06/12/25 0957 ??? SODIUM BICARBONATE 1 MEQ/ML (8.4 %) INTRAVENOUS SOLUTION (CABINET OVERRIDE), , , , ??? AMIODARONE 150 MG/100 ML (1.5 MG/ML) IN DEXTROSE, ISO-OSMOTIC IV (CABINET OVERRIDE), , , , ??? CALCIUM CHLORIDE 100 MG/ML (10 %) INTRAVENOUS SYRINGE (CABINET OVERRIDE), , , , ??? SODIUM BICARBONATE 1 MEQ/ML (8.4 %) INTRAVENOUS SOLUTION (CABINET OVERRIDE), , , , ??? sodium chloride 0.9 % bolus solution 250 mL, 250 mL, IV, ONE time only, Charles Magana MD ??? amiodarone in dextrose (ISO-OSM) (NEXTERONE) 360 mg/200 mL (1.8 mg/mL) IV infusion, 1 mg/min, IV, continuous, Charles Magana MD, Last Rate: 33.33 mL/hr at 06/12/25 1547, 1 mg/min at 06/12/25 1547 ??? lidocaine in dextrose 5% 4 mg/mL (0.4 %) infusion, 2 mg/min, IV, continuous, Charles Magana MD, 2,000 mg at 06/12/25 0410 ??? [COMPLETED] potassium CHLORIDE 20 mEq/100 mL IVPB 20 mEq, 20 mEq, IV, every 2 hours, Charles Magana MD, Stopped at 06/12/25 1431 ??? HYDROmorphone (PF) in NS (DILAUDID) 30 mg/30 mL (1 mg/mL) intravenous solution, 0-1.2 mg/hr, IV, titrate, Zenaida Michel MD, Last Rate: 1 mL/hr at 06/12/25 0933, 1 mg/hr at 06/12/25 0933 ??? vasopressin (VASOSTRICT) 20 Units in dextrose 5 % 100 mL infusion, 0.05 Units/min, IV, continuous, Zenaida Michel MD, Last Rate: 15 mL/hr at 06/12/25 1546, 0.05 Units/min at 06/12/25 1546 ??? insulin regular (HumuLIN R,NovoLIN R) 1 Units/mL in sodium chloride 0.9 % infusion, 0-25 Units/hr, IV, titrate, Zenaida Michel MD ??? dextrose 5 % - sodium chloride 0.9 % infusion, , IV, see admin instructions, Zenaida Michel MD ??? dextrose 50% (D50) syringe 12.5 Gram, 12.5 Gram, IV, see admin instructions, Zenaida Michel MD ??? dextrose 50% (D50) syringe 25 Gram, 25 Gram, IV, see admin instructions, Zenaida Michel MD ??? glucagon HCL 1 mg/mL injection 1 mg, 1 mg, IM, see admin instructions, Zenaida Michel MD ??? midazolam (VERSED) 150 mg/30 mL (5 mg/mL) syringe, 0-6 mg/hr, IV, titrate, Zenaida Michel MD, Last Rate: 0.4 mL/hr at 06/12/25 1137, 2 mg/hr at 06/12/25 1137 ??? heparin in 0.45% NaCl 25,000 unit/250 mL infusion, 9 Units/kg/hr, IV, titrate, Zenaida Michel MD, Last Rate: 8.7 mL/hr at 06/12/25 1515, 9 Units/kg/hr at 06/12/25 1515 ??? HEPARIN (PORCINE) 1,000 UNIT/ML INJECTION SOLUTION (CABINET OVERRIDE), , , , ??? ASPIRIN 81 MG CHEWABLE TABLET (CABINET OVERRIDE), , , , ??? potassium CHLORIDE 20 mEq/100 mL IVPB 20 mEq, 20 mEq, IV, every 2 hours, Zenaida Michel MD, Last Rate: 50 mL/hr at 06/12/25 1544, 20 mEq at 06/12/25 1544 ??? cefePIME (MAXIPIME) 1,000 mg in sodium chloride 0.9% 50 mL IVPB (MBP), 1,000 mg, IV, every 12 hours (2 times daily), Zenaida Michel MD, Stopped at 06/12/25 1606 ??? VANCOMYCIN CONSULT TO PHARMACY, , See Admin Instructions, see admin instructions, Zenaida Michel MD ??? vancomycin in sodium chloride 0.9% (VANCOCIN) 1500 mg/515 mL IVPB 1,500 mg, 1,500 mg, IV, every24 hours, Zenaida Michel MD, Last Rate: 386.67 mL/hr at 06/12/25 1616, 1,500 mg at 06/12/25 1616 ??? [DISCONTINUED] midazolam (VERSED) injection, , , ONE time PRN, Prince Farr MD, 1 mg at 06/12/25 0237 ??? [DISCONTINUED] fentaNYL (PF) (SUBLIMAZE) 50 mcg/mL injection, , , ONE time PRN, Prince Farr MD, 50 mcg at 06/12/25 0237 ??? [DISCONTINUED] lidocaine 1 % (XYLOCAINE) injection, , , ONE time PRN, Prince Farr MD, 10 mL at 06/12/25 0215 ??? [DISCONTINUED] phenylephrine syringe, , , ONE time PRN, Prince Farr MD, 100 mcg at 06/12/25 0222 ??? [DISCONTINUED] heparin injection, , , ONE time PRN, Prince Farr MD, 4,000 Units at 06/12/25 0311 ??? [DISCONTINUED] nitroglycerin in 5 % dextrose (TRIDIL) 1,000 mcg in sodium chloride 0.9 % 5 mL injection, , , ONE time PRN, Prince Farr MD, 2 mL at 06/12/25 0239 ??? [DISCONTINUED] iopamidoL (ISOVUE-300) 61% injection (single-use vial), , , ONE time PRN, Prince Farr MD, 140 mL at 06/12/25 0318 ??? [DISCONTINUED] fentaNYL (PF) (SUBLIMAZE) 50 mcg/mL injection, , , ONE time PRN, Prince Farr MD, 50 mcg at 06/12/25 0323 ??? [DISCONTINUED] midazolam (VERSED) injection, , , ONE time PRN, Prince Farr MD, 2 mg at 06/12/25 0323 ??? [DISCONTINUED] ticagrelor (BRILINTA) tablet, , , ONE time PRN, Prince Farr MD, 180 mg at 06/12/25 0330 ??? [DISCONTINUED] heparin in 0.45% NaCl 25,000 unit/250 mL infusion, 12 Units/kg/hr, IV, titrate, Prince Farr MD, Stopped at 06/12/25 1407 ??? [DISCONTINUED] PROPOFOL 10 MG/ML INFUSION WRAPPER (CABINET OVERRIDE), , , , ??? [DISCONTINUED] FENTANYL (PF) 50 MCG/ML INJECTION SOLUTION (CABINET OVERRIDE), , , , ??? [DISCONTINUED] EPINEPHRINE 0.1 MG/ML INJECTION SYRINGE (CABINET OVERRIDE), , , , ??? [DISCONTINUED] ATROPINE 0.1 MG/ML INJECTION SYRINGE (CABINET OVERRIDE), , , , ??? [DISCONTINUED] NITROGLYCERIN 0.4 MG SUBLINGUAL TABLET (CABINET OVERRIDE), , , , ??? [DISCONTINUED] ONDANSETRON HCL (PF) 4 MG/2 ML INJECTION SOLUTION (CABINET OVERRIDE), , , , Facility-Administered Medications Ordered in Other Encounters: ??? [COMPLETED] etomidate (AMIDATE) injection 40 mg, 40 mg, IV, ONE time only, Luis Ramos MD, 40 mg at 06/12/25 0015 ??? [COMPLETED] succinylcholine (ANECTINE) 20 mg/mL injection 150 mg, 150 mg, IV, ONE time only, Luis Ramos MD, 150 mg at 06/12/25 0026 ??? [COMPLETED] ketamine 100 mg/mL injection 50 mg, 50 mg, IV, pre-proc one time, Luis Ramos MD, 50 mg at 06/11/25 2346 ??? [COMPLETED] midazolam (VERSED) injection 2 mg, 2 mg, IV, ONE time only, Luis Ramos MD, 2 mg at 06/12/25 0038 ??? [COMPLETED] midazolam (VERSED) injection 5 mg, 5 mg, IV, ONE time only, Luis Ramos MD, 5 mg at 06/12/25 0049 ??? [DISCONTINUED] propofol (DIPRIVAN) 10 mg/mL continuous infusion, 0-50 mcg/kg/min, IV, titrate, Luis Ramos MD, Stopped at 06/12/25 0110 ??? [COMPLETED] ondansetron (ZOFRAN) 4 mg/2 mL injection 4 mg, 4 mg, IV, ONE time only, Luis Ramos MD, 4 mg at 06/11/25 2347 ??? [COMPLETED] heparin injection 1,500 Units, 15 Units/kg, IV, ONE time only, Luis Ramos MD, 1,500 Units at 06/12/25 0006 ??? [DISCONTINUED] aspirin (SNOW CHEWABLE) chewable tablet 324 mg, 324 mg, Oral, ONE time only, Luis Ramos MD ??? [DISCONTINUED] morphine 2 mg/mL injection 2 mg, 2 mg, IV, every 2 hours PRN, Luis Ramos MD ??? [DISCONTINUED] nitroglycerin (NITROSTAT) tablet 0.4 mg, 0.4 mg, Sublingual, every 5 minutes PRN, Luis Ramos MD ??? [DISCONTINUED] metoprolol (LOPRESSOR) 5 mg/5 mL injection 5 mg, 5 mg, IV, ONE time only, Luis Ramos MD PLAN Assess for midline placement. Anyi Nelson RN * Robinson Maier PA-C - 06/12/2025 11:42 AM CDT Images from the original note were not included. Cardiothoracic Surgery Consult H&P Patient: Isaac Franklin / 65 y.o. / male : 1960 Reason for consult: Isaac Franklin is 65-year-old male with hx of who initially presented to the outside hospital with chest pain. He was diagnosed with inferior STEMI. He also had VT/VF arrest for which he was defibrillated and CPR was performed. He was subsequently transferred [facility] for further care. He emergently went to the Intramural Director and underwent PCI of proximal to mid right coronary artery. Intra-aortic balloon pump and temporary pacemaker were also placed in addition to performing right heart catheterization per Dr Farr. On arrival in the ICU, he had refractory VT/VF arrest. This was treated with prolonged cardiopulmonary resuscitation. He had multiple rounds of defibrillation, medications including epinephrine, magnesium, calcium, bicarbonate as well as antiarrhythmics including lidocaine and amiodarone (boluses as well as infusion). Per Dr Farr, Over drive pacing was also attempting with no benefit. Pacemaker back up rate then set at 60bpm. ECMO team was activated. Patient underwent successful [facility] ECMO cannulation with left 19 fr arterial, left 25 fr venous percutaneous ecmo cannula placed with 4 liters of pump flow noted. Patient currently intubated and sedated. Left distal reperfusion cannula placed by Dr Michel Past Medical Hx: Past Medical History: Diagnosis Date Patient denies medical problems Past Surgical Hx: No past surgical history on file. Medications: Current Facility-Administered Medications on File Prior to Encounter Medication Dose Route Frequency Provider Last Rate Last Admin [COMPLETED] etomidate (AMIDATE) injection 40 mg 40 mg IV ONE time only Luis Ramos MD 40 mg at 06/12/25 0015 [COMPLETED] succinylcholine (ANECTINE) 20 mg/mL injection 150 mg 150 mg IV ONE time only Luis Ramos MD 150 mg at 06/12/25 0026 [COMPLETED] ketamine 100 mg/mL injection 50 mg 50 mg IV pre-proc one time Luis Ramos MD 50 mg at 06/11/25 2346 [COMPLETED] midazolam (VERSED) injection 2 mg 2 mg IV ONE time only Luis Ramos MD 2 mg at1 0038 [COMPLETED] midazolam (VERSED) injection 5 mg 5 mg IV ONE time only Luis Ramos MD 5 mg at1 0049 [DISCONTINUED] propofol (DIPRIVAN) 10 mg/mL continuous infusion 0-50 mcg/kg/min IV titrate Luis Ramos MD Stopped at 06/12/25 0110 [COMPLETED] ondansetron (ZOFRAN) 4 mg/2 mL injection 4 mg 4 mg IV ONE time only Luis Ramos MD 4 mg at 06/11/25 2347 [COMPLETED] heparin injection 1,500 Units 15 Units/kg IV ONE time only Luis Ramos MD 1,500 Units at 06/12/25 0006 [DISCONTINUED] aspirin (SNOW CHEWABLE) chewable tablet 324 mg 324 mg Oral ONE time only Luis Ramos MD [DISCONTINUED] morphine 2 mg/mL injection 2 mg 2 mg IV every 2 hours PRN Luis Ramos MD [DISCONTINUED] nitroglycerin (NITROSTAT) tablet 0.4 mg 0.4 mg Sublingual every 5 minutes PRN Luis Ramos MD [DISCONTINUED] metoprolol (LOPRESSOR) 5 mg/5 mL injection 5 mg 5 mg IV ONE time only Luis Ramos MD No current outpatient medications on file prior to encounter. Allergies: No Known Allergies Family Hx: No family history on file. Social Hx: Social History Socioeconomic History Marital status: Occupational History Not on file Tobacco Use Smoking status: Every Day Current packs/day: 1.00 Types: Cigarettes Review of Systems: Unable to obtain as patient is intubated and sedated Physical Exam: Pulse 77 Temp 99.1 ??F (37.3 ??C) Resp 14 SpO2 100% (BMI of: 25-29 is Overweight; 30-39 is Obese; > 40 is Morbid Obesity) General appearance: intubated Head: atraumatic, Normocephalic, without obvious abnormality Lungs: on CMV Heart: rate 70s Abdomen: firm Extremities: doppler distal pulses Neurologic: sedated/intubated Labs: Lab Results Component Value Date WBC 20.7 (H) 06/12/2025 HGB 12.7 (L) 06/12/2025 HGBPOC 13.7 06/12/2025 HCT 38.3 (L) 06/12/2025 HCTPOC 41 06/12/2025 PLT 217 06/12/2025 MCV 95.5 06/12/2025 Lab Results Component Value Date NA 139 06/12/2025 K 2.8 (L) 06/12/2025 CL 102 06/12/2025 CO2 14 (L) 06/12/2025 CA 12.9 (H) 06/12/2025 BUN 16 06/12/2025 CREAT 0.91 06/12/2025 GLUCOSE 477 (HH) 06/12/2025 TOTALPROTEIN 5.4 (L) 06/12/2025 ALBUMIN 2.9 (L) 06/12/2025 BILITOTAL 0.5 06/12/2025 ALKPHOS 91 06/12/2025 AST 225 (H) 06/12/2025 ALT 172 (H) 06/12/2025 ANIONGAP 23 (H) 06/12/2025 Lab Results Component Value Date APTT >249.0 (HH) 06/12/2025 CXR post ECMO Assessment: Principal Problem: ST elevation myocardial infarction involving right coronary artery Active Problems: Cardiogenic shock (CMS/HCC) Complete heart block (CMS/HCC) Cardiac arrest with ventricular fibrillation (CMS/HCC) CHB (complete heart block) ST elevation myocardial infarction (STEMI) Discussed with Dr Penny, [facility] -Primary medical and ECMO management per [facility] -cardiology following -will eventually need return to OR for surgical decannulation -CTS will continue to follow Robinson Maier PA-C Cardiothoracic Surgery 06/12/2025, 11:42 AM Cosigned by Kim Penny MD at 06/13/2025 3:46 PM CDT * Prince Farr MD - 06/12/2025 2:02 AM CDT Images from the original note were not included. Cardiology Consult LOS: LOS: 0 days Patient name: Isaac Franklin. [id number] Date of : 1960 12/28 History of Present Illness: Isaac Franklin is a 65 y.o. year old male with history of tobacco use. He presented to [facility] with complaints of 2 days of chest discomfort. He was noted to have inferior ST elevation and lateral ST depression. Per records, he underwent V-fib arrest. He subsequently required defibrillation and cardiopulmonary resuscitation. Per report, this was for 2 rounds of CPR. He was intubated and sedated. He was then transferred here. He received 1500 units of heparin. Our team received STEMI activation page 1:28 AM on 06/12/25. Patient was brought to the ER by EMS. Per EMS report, he was hypotensive, currently on epinephrine drip. He did transiently follow commands to EMS. He is also on ketamine for sedation. Since then, he has been hypotensive, has been on epinephrine drip. Intermittently bradycardic. Otherwise maintain blood pressure reasonably well while on epinephrine. I discussed with his over the phone call conference of ER physician. No known comorbidities. Not on any medications. No known allergies. Past Medical History: Limited but noncontributory. Past Surgical History: Past therapeutical history: Noncontributory Allergies: No Known Allergies Current Medications: No current facility-administered medications for this encounter. No current outpatient medications on file. Facility-Administered Medications Ordered in Other Encounters Medication Dose Route Frequency Provider Last Rate Last Admin [COMPLETED] etomidate (AMIDATE) injection 40 mg 40 mg IV ONE time only Luis Ramos MD 40 mg at 06/12/25 0015 [COMPLETED] succinylcholine (ANECTINE) 20 mg/mL injection 150 mg 150 mg IV ONE time only Luis Ramos MD 150 mg at 06/12/25 0026 [COMPLETED] ketamine 100 mg/mL injection 50 mg 50 mg IV pre-proc one time Luis Ramos MD 50 mg at 06/11/25 2346 [COMPLETED] midazolam (VERSED) injection 2 mg 2 mg IV ONE time only Luis Ramos MD 2 mg at1 0038 [COMPLETED] midazolam (VERSED) injection 5 mg 5 mg IV ONE time only Luis Ramos MD 5 mg at1 0049 [DISCONTINUED] propofol (DIPRIVAN) 10 mg/mL continuous infusion 0-50 mcg/kg/min IV titrate Luis Ramos MD Stopped at 06/12/25 0110 [COMPLETED] ondansetron (ZOFRAN) 4 mg/2 mL injection 4 mg 4 mg IV ONE time only Luis Ramos MD 4 mg at 06/11/25 2347 [COMPLETED] heparin injection 1,500 Units 15 Units/kg IV ONE time only Luis Ramos MD 1,500 Units at 06/12/25 0006 [DISCONTINUED] aspirin (SNOW CHEWABLE) chewable tablet 324 mg 324 mg Oral ONE time only Luis Ramos MD [DISCONTINUED] morphine 2 mg/mL injection 2 mg 2 mg IV every 2 hours PRN Luis Ramos MD [DISCONTINUED] nitroglycerin (NITROSTAT) tablet 0.4 mg 0.4 mg Sublingual every 5 minutes PRN Luis Ramos MD [DISCONTINUED] metoprolol (LOPRESSOR) 5 mg/5 mL injection 5 mg 5 mg IV ONE time only Luis Ramos MD No current facility-administered medications for this encounter. No current outpatient medications on file. Family History: Limited Social History: Social History Tobacco Use Smoking status: Every Day Current packs/day: 1.00 Types: Cigarettes Review of Systems: All 12 systems were reviewed and are negative except pertinent positives already dictated under HPI. and reviewed. Physical Exam: Blood pressure 104/74. Heart rate 71 bpm. Oxygen saturation greater than 90%. Constitutional: Intubated and sedated HEENT: Normocephalic atraumatic. Small bilateral pupils with minimal reaction to light. Cardiovascular: Normal rate, regular rhythm. 2/6 systolic murmur. Peripheral pulses: Symmetrical and intact 4/4 Pulmonary: Bilateral crackles present. Abdominal: Soft, nontender to palpate, nondistended. Normal bowel sounds heard. Musculoskeletal/extremities: No lower extremity swelling Skin: Cold to touch Neurological: Not following commands. Intubated and sedated. Consultants: None OBJECTIVE: Temp (24hrs), Av.2 ??F (36.8 ??C), Min:98.2 ??F (36.8 ??C), Max:98.2 ??F (36.8 ??C) No intake or output data in the 24 hours ending 06/12/25 0210 Last documented weight: LABORATORY: Recent Labs 06/11/252324 WBC 14.2* HGB 15.5 HCT 43.9 PLT 256 Recent Labs 06/11/252324 NA 138 K 4.0 CL 101 CO2 24 CA 9.7 BUN 13 CREAT 0.58* GLUCOSE 177* Recent Labs 06/11/252324 TOTALPROTEIN 7.5 ALBUMIN 4.1 BILITOTAL 0.3 ALKPHOS 105 AST 17 ALT 12 Recent Labs 06/11/252324 INR 0.9 PT 12.0* Recent Labs 06/11/252324 BASETROP 6 FLP: No results found for: CHOLTOT No results found for: TRIGLYCERIDE No results found for: HDL No results found for: LDLCALC No results found for: NONHDLCHOL DM: No results found for: HGBA1C No results found for: ESTAVEGLU Thyroid: No results found for: TSH No results found for: T4FREE No results found for: T4 No results found for: T3 No results found for: THROIDAB Cardiac: No results found for: TROPONIN No results found for: CKTOTALREF No results found for: CKMB No results found for: BNP Chart reviewed: I personally reviewed, interpreted/reinterpreted all available cardiac studies and also discussed them in extensive detail with the patient. Other Results: Results for orders placed or performed during the hospital encounter of 06/11/25 EKG 12-LEAD - ONE TIME Narrative Luis Ramos MD 06/12/2025 1:06 AM EKG 12-LEAD - ONE TIME Date/Time: 06/11/2025 11:34 PM Performed by: Luis Ramos MD Authorized by: Luis Ramos MD ECG interpreted by ED Physician in the absence of a wire saw operator: yes Rate: ECG rate: 73 ECG rate assessment: age appropriate Rhythm: Rhythm Origin: sinus QRSTT: QRSTT changes: Yes Septal V1-V2: ST elevation Anterolateral (LAD + Circ) I, aVL, V5-V6: T wave inversion Inferior (RCA) II, III, aVF: ST elevation Comments: Acute ischemic changes consistent with an NC. ASSESSMENT AND PLAN: Primary Discharge Diagnosis: ST elevation myocardial infarction involving right coronary artery Other Active medical issues also addressed during this admission: Active Hospital Problems Diagnosis Cardiogenic shock (CMS/HCC) Complete heart block (CMS/HCC) ST elevation myocardial infarction involving right coronary artery Resolved Hospital Problems No resolved problems to display. Plan: He is currently critically ill, in cardiogenic shock with transient complete heart block. His EMS EKG showed sinus rhythm with complete heart block, inferior ST elevation and lateral lead ST depression. He is currently conducting one-to-one on telemetry. He has not received any antiplatelet therapyat this point. He has only received 1500 units of heparin. He is currently on epinephrine infusion.He is also on ketamine infusion. I have discussed his presentation as well as findings with his over the phone call in presenceof ER physician, Dr. [place]. He is critically ill and very high risk of decompensation with high morbidity and mortality without further evaluation/management. Aspirin loading dose administered via OG tube in the ER because. Intravenous heparin bolus administered in the ER. We will emergently proceedwith left heart catheterization, coronary angiography with possible PCI and use temporary pacemakeras needed. Verbal consent obtained from on the phone as well as second physician consent obtained from the ER physician who also witnessed this telephone consent. The risks and benefits of the procedure were described in simple details. Risks including: bleeding, need for blood transfusion, arrhythmia, need for emergent surgery, renal failure, allergic reactions, myocardial infarction, stroke and . All questions were answered. Informed consent was obtained. Conscious sedation assessment: ASA Class: 4 Mallampati class: Currently intubated and sedated. NPO Status per Policy: yes Portions of this document were created through the use of iogynfitter helper software. Effort has been made to ensure accuracy of the mems engineer. Any obvious errors or omissions should be clarified with the author of the document. Prince Yordan MD documented in this encounter OR Notes * Operative Report - Kim Penny MD - 06/17/2025 5:01 PM CDT OPERATIVE REPORT DATE: 06/17/2025 Surgeon(s): Kim Penny MD Surgeon's Hoist Operator: Robinson Maier PA-C PRE-OP DIAGNOSIS:s/p ecmo placement for cardiogenic shock 5 days ago POST-OP DIAGNOSIS: SAME Procedures: * EXTRACORPOREAL CIRCULATION MEMBRANE OXYGENATION REMOVAL Anesthesia Type: General FINDINGS: good pulse dopplered in left leg at conclusion COMPLICATIONS: None Procedure Start: 1536 Procedure End: 1646 ESTIMATED BLOOD LOSS: No blood loss documented. FLUIDS: See anesthesia record. SPECIMENS: * No specimens in log * IMPLANTS: Implant Name Type Inv. Item Serial No. Vet Assistant Lot No. LRB No. Used Action AGENT HEMOSTAT SURGICEL 2X3IN 1952S - [id number] Hemostatic AGENT HEMOSTAT SURGICEL 2X3IN 3S [employer] [id number] N/A 1 Implanted AGENT HEMOSTAT SURGICEL 2X3IN 1952S - [id number] Hemostatic AGENT HEMOSTAT SURGICEL 2X3IN 3S [employer] [id number] N/A 1 Implanted CLIP LIGATING HORIZON RED [id number] - CSC - [id number] Clip CLIP LIGATING HORIZON RED [id number] - CSC TELEFLEX INC [id number] N/A 1 Implanted CLIP LIGATING HORIZON MED TI [id number] - CSC - [id number] Clip CLIP LIGATING HORIZON MED TI [id number] - CSC TELEFLEX- WECK CLOSURE SYS [id number] N/A 1 Implanted FELT PTFE THICK 1.6MMX2.5X10.2CM [id number] - [id number] Graft FELT PTFE THICK 1.6MMX2.5X10.2CM [id number] BARD SADIE VASC [id number] N/A 1 Implanted AGENT HEMOSTAT SURGICEL 2X3IN 3S - [id number] Hemostatic AGENT HEMOSTAT SURGICEL 2X3IN 3S [employer]- [employer] [id number] N/A 1 Implanted AGENT HEMOSTAT SURGICEL 2X3IN 3S - [id number] Hemostatic AGENT HEMOSTAT SURGICEL 2X3IN 3S [employer]- [employer] [id number] N/A 1 Implanted AGENT HEMOSTAT SURGICEL 2X3IN 1953S - [id number] Hemostatic AGENT HEMOSTAT SURGICEL 2X3IN 3S [employer]- [employer] [id number] N/A 1 Implanted AGENT HEMOSTAT SURGICEL 2X3IN 1953S - [id number] Hemostatic AGENT HEMOSTAT SURGICEL 2X3IN 3S [employer] [id number] N/A 1 Implanted INDICATIONS FOR OPERATION: has had recovery of cardiac function where av ecmo is no longer warranted PROCEDURE IN DETAIL: pt brought down to OR.abdomen and legs sterile prep and drape.1g iV ancef administered.pump flow weaned off with no pressor requirement.Venous line removed and purse string 0 silk tied at the skin exit site and pressure held for 5 mins.The volume from the venous line was transfused via the arterial cannula then the arterial cannula clamped and a vertical incison cephalad to the arterial cannula exit site extended to the level ogf the inguinal ligament.The common femoral artery was controlled proximally with vessel loops and then the adventitia cephalad and inferior to thecannula were secured with a pledgeted 3-0- prolene stitch .local pressure was jheld for 10 mins andthen the wound was irriagted with betadine and closed in layers with absorbable suture.the retrograde perfusion cannula was removed and pressure also held for 10 mins.Doppler pulse was confirmed in the left lower extremity,the iabp at 1;1 was left in the right groin and preparations made to transfer pt back to ICU,stll off pressors. Kim Penny MD 06/17/2025 * Operative Report - Kim Penny MD - 06/12/2025 5:52 AM CDT OPERATIVE REPORT DATE: 06/12/2025 Surgeon(s): Kim Penny MD Dr Pendurthi PRE-OP DIAGNOSIS: Cardiogenic shock s/p inferior mi and pci of rca POST-OP DIAGNOSIS: SAME Procedures: A-V ecmo placement for cardiogenic shock Anesthesia Type: General FINDINGS: 19 fr arterial,25 venous percutaneous ecmo cannula placed,4 liers of pump flow COMPLICATIONS: None Procedure Start: Procedure End: ESTIMATED BLOOD LOSS: No blood loss documented. FLUIDS: See anesthesia record. SPECIMENS: * No specimens in log * IMPLANTS: * No implants in log * INDICATIONS FOR OPERATION: cardiogenic shock/multiple bouts of vfib arrest/cpr PROCEDURE IN DETAIL: pt left groin prepped and draped.skin denice made over letcommon femoral artery and r femoral artery accessed w seldinger technique qnd serially dilated until a 19 fr arterial cannula placed and advanced into left iliac.Pt was heparinized .Rightfemoral vein was already cannulatedwith a cannula and this was utilized to deliver the 25 fr long venous cannula over a wire after serial dilations to the estimated ra/svc junction.Both cannulas de- airedand hooked up to cardiopulmonary bypass with 4 liters of flow noted.Request for assessment for distal perfusion cannula will be made to vascular service. Kim Penny MD 06/12/2025 Cxr show tip of cannula in appendage fine leave alone. documented in this encounter ED Notes * Elsy Billingsley - 06/12/2025 2:23 AM CDT Reason for Visit: Crisis (STEMI) Due to the care of the medical team, the patient was not available for spiritual care. There were no family members present at the time of my encounter. Isaac's spouse, Yasmeen, will be travelling [facility]. Please notify Spiritual Care at time of family's arrival. Goals of Spiritual Care Resident Care Manager Plan Spiritual Care Services remain available for referral PRN. Recommendations for Healthcare Team As spiritual needs/distress arise, please contact Spiritual Care Services. We will follow up as needed. Thank you for this referral. Resident Care Manager Elsy Billingsley Spiritual Care Team [phone] * DangeloMalini grant RN - 06/12/2025 2:17 AM CDT Patient arrives to [facility] via [facility] with c/o post code/STEMI. Patient arrived to room on EMS stretcher, Customer Care Manager at bedside and obtained consent from patients over the phone for earthmoving labourer procedure. Patient transported directly to earthmoving labourer after arrival and consent was obtained. 325 aspirin given via NG tube, 4,000mg heparin given by [facility] enroute to earthmoving labourer * Malini Dangelo RN - 06/12/2025 2:00 AM CDT CHEST PAIN DOCUMENTATION TOOL TIMES Time of symptom onset N/a Mode of Patient Arrival (EMS or POV) [facility] 0204 Time of arrival to hospital 0204 Time to ED Room 0204 EKG Completed N/a Time EKG to Physician N/a ED Physician at bedside- Dr. Ambrocio 0200 IV 0.9 Normal Saline hanging at TKO (unless Dr specifies different rate) N/a Intramural Director Activation Paged (if applicable) 0131 Customer Care Manager at bedside- N/hakeem 0150 Nurse Practitioner at bedside- n/a N/a Intramural Director Ready (if applicable) 0206 To Intramural Director - Time pt left the ED 0206 Arrived in Intramural Director 0209 Patient not transferred from EMS stretcher to ER stretcher due to earthmoving labourer being ready upon arrivaland not wanting to delay patient care. All paperwork from other facility, including EKG was transported to earthmoving labourer with patient * Doreen Ambrocio MD - 06/12/2025 1:52 AM CDT HISTORY OF PRESENT ILLNESS 65-year-old male transferred from [place] after patient had a witnessed arrest. Reportedly the patient had V-fib arrest and was noted subsequently after defibrillation to have an ST elevation NC and have complete heart block. The patient arrives intubated, on ketamine infusion, nonverbal. Patient is from out of town, no other history is available. History provided by: The EMS personnel Arrived by: EMS Arrived from: An outside facility PAST MEDICAL HISTORY REVIEWED MEDICAL: Patient has a past medical history of Patient denies medical problems. SURGICAL: Patient has no past surgical history on file. ALLERGIES Patient has no known allergies. PHYSICAL EXAM INITIAL VS BP: (not recorded), Heart Rate: (not recorded), Resp: (not recorded), Pulse: (not recorded), Temp: (not recorded), Temp src: (not recorded), SpO2: (not recorded), Height: (not recorded), Weight: (notrecorded), BMI (Calculated): (not recorded) No LMP for male patient. Physical Exam Vitals and nursing note reviewed. Constitutional: Comments: Patient is intubated, on a ketamine infusion, unresponsive at this time. HENT: Head: Normocephalic and atraumatic. Eyes: Comments: Pupils are pinpoint, sluggishly reactive Cardiovascular: Rate and Rhythm: Regular rhythm. Pulmonary: Breath sounds: Stridor present. Musculoskeletal: General: No deformity. Skin: General: Skin is warm. DIAGNOSTICS LAB: No data to display RADIOLOGY: No orders to display EKG: EKG from outside facility showed complete heart block with an ST elevation NC PROCEDURES Procedures MEDICAL DECISION MAKING AND PLAN OF CARE Patient seen upon arrival, in coordination with the wire saw operator who is also at the bedside. The was contacted by telephone and verbal consent was obtained to take the patient emergently to the Intramural Director. Patient was given 324 mg of aspirin and his nasogastric tube which was flushed into the tube after it was crushed and diluted. He was also subsequently given a 4000 unit heparin bolus. Patient was then subsequently taken emergently to the Intramural Director. Medical Decision Making Clinical Scoring & Consults . LAST VS BP: (not recorded), Heart Rate: (not recorded), Resp: (not recorded), Pulse: (not recorded), Temp: (not recorded), Temp src: (not recorded), SpO2: (not recorded) CLINICAL IMPRESSION Diagnoses Diagnosis Comment Added By Time Added ST elevation myocardial infarction (STEMI), unspecified artery [I21.3] Doreen Ambrocio MD 06/12/2025 2:06 AM Cardiac arrest with ventricular fibrillation (CMS/HCC) [I46.9, I49.01] Doreen Ambrocio MD 06/12/2025 2:06 AM CHB (complete heart block) [I44.2] Doreen Ambrocio MD 06/12/2025 2:06 AM DISPOSITION, EDUCATION AND MEDICATION RECONCILIATION Medications reconciled. See after visit summary for patient education on discharged patients. ED Disposition ED Disposition Admit Condition Stable User Doreen Ambrocio MD Date/Time Sat Jun 12, 2025 2:06 AM Comment -- ATTESTATION STATEMENTS documented in this encounter Miscellaneous Notes * Care Plan - Nina Mccrary RN - 06/27/2025 11:39 AM CST Problem: Discharge Planning Goal: Identify discharge needs upon admission and through discharge Description: Outcome: Progressing Registered Mail Clerk Discharge Planning Expected Discharge Date Jun 28, 2025 Plan Discharge To: Home with family assist (06/25/25 102) Plan Discharge To - Alternate: Inpatient Rehab Facility (06/25/25 102) Family/Caregiver Assist Does the patient have family and/or a caregiver that is willing, able and available to assist if needed?: Yes (06/25/251024) Name and Relation: Dior, spouse (06/25/251024) Patient discharging home today, needing assistance with prescription costs. Patient is 100% FAP approved and LUCIA Pending. CM faxed Shira form to pharmacy for prescriptions. Copy to floor. Referrals Status: Facility Referrals - Pending Follow-up on Referrals Sent: No (06/25/251024) Preferred Pharmacy: [facility] [address] Patient / Family Communications: Patient/Family Communications: Plan Discharge To Update (06/25/25 102) Discharge Plan Agreed Upon: Patient (06/25/25 102) Resources Provided: Resource List Given: Care facilities (06/22/25 153) Resource List Given To: Patient (06/22/25 153) Transportation Plan: Has discharge transport been arranged?: No (06/25/25 102) Follow Up Appointments Scheduled Nina Mccrary RN INUOUS MINER OPERATOR HELPER * Care Plan - Leena Valdez LPN - 06/27/2025 5:24 AM CST Shift Summary Cardiac monitoring and bleeding precautions were maintained throughout the shift, with stable vitalsigns Multiple POC glucose checks revealed persistently elevated glucose levels, and blood glucose monitoring was continued as part of the care plan. Laboratory results showed several abnormal values, including high WBC, low hemoglobin, and high BUN Overall, comfort level was maintained, and no pain was reported during the shift. Verbalizes/displays acceptable comfort level or baseline comfort level: No pain was reported throughout the shift, and no pain interventions were required. Achieve optimal cardiovascular function by discharge or maintain baseline function: Blood pressure,heart rate, and cardiac rhythm remained stable, and cardiac monitoring and bleeding precautions were maintained; however, ECG and EKG findings included ST & T wave abnormality and prolonged QT. Achieve optimal gastrointestinal function by discharge or maintain baseline function: Gastrointestinal status remained within defined limits throughout the shift, with no changes documented. INUOUS MINER OPERATOR HELPER * Care Plan - Flower Gillette RCP - 06/27/2025 2:31 AM CST NOC CPAP Note Is this the patient's device? No Adult Vent Non-Invasive: Adult Vent Non-Invasive: Nocturnal (06/26/252314) Device Asset ID# (If using facility equipment): Vent ID: [id number] (06/25/251957) CPAP Daily Charge: *CPAP Daily Charge: Yes (06/26/25199) Device Name: Vent Type: AirSense (06/25/251957) Device Settings: Delivery Mode: Standby (06/26/252314) CPAP (cm H2O): (AUTO CPAP 4-20) (06/25/2524) Interface: Delivery Method: Full Face Mask (06/25/251957) Mask/Prong Size:Mask/Prong Size: M (06/25/251957) Oxygen Flow (if applicable): Oxygen Therapy Flow (L/min): 2 (06/26/252314) Is the patient wearing the device? No Flower Gillette RCP INUOUS MINER OPERATOR HELPER * Care Plan - Mary Martin RN - 06/26/2025 5:28 AM CDT Shift Summary Patient rested with eyes closed most of the overnight hours this shift. Patient very thankful to staff this shift for all we have done for him. Patient rested with eyes closed most of the overnight hours this shift. Call device in reach. Pain was managed effectively with comfort measures and repositioning, and pain was consistently denied throughout the shift. No changes were observed in wound status or dressing appearance for surgical sites and midline catheter, and skin integrity was maintained. High fall risk interventions and safety checks were completed, with no falls or injuries reported. Discharge planning was reviewed with the patient, and no concerns or questions were raised regarding treatment or discharge goals. Overall, comfort, safety, and skin integrity were maintained during the shift. Verbalizes/displays acceptable comfort level or baseline comfort level: Comfort measures such as encouragement, reassurance, and repositioning were provided; pain was consistently denied throughout the shift and pain ratings remained at baseline with no nonverbal indicators of pain persisting afterinterventions. Infection Risk/Actual: Infection prevention, control, or resolution by discharge: No changes in wound status or dressing appearance were noted for either the left anterior thigh or right anterior groin surgical sites, and antimicrobial dressing remained in place on the midline catheter; no abnormal skin findings or drainage were documented during the shift. Safety/Fall: Absence of fall, injury, harm during hospitalization: High fall risk interventions andsafety checks were completed each assessment, and no falls or injuries occurred during the shift. Identify discharge needs upon admission and through discharge: Discharge goal to go home was documented and plan of care was reviewed with the patient multiple times during the shift; no questions orconcerns about treatment or discharge were raised by the patient or family. Maintain skin integrity and/or promote wound healing by discharge: Skin remained within defined limits and wounds on the left anterior thigh and right anterior groin stayed closed, intact, and without drainage; ecchymosis persisted but did not worsen, and turning/repositioning was encouraged. * Care Plan - Micky Leal RCP - 06/26/2025 2:14 AM CDT NOC CPAP Note Is this the patient's device? No Adult Vent Non-Invasive: Adult Vent Non-Invasive: Nocturnal (06/25/251957) Device Asset ID# (If using facility equipment): Vent ID: [id number] (06/25/251957) CPAP Daily Charge: *CPAP Daily Charge: Yes (06/25/2524) Device Name: Vent Type: AirSense (06/25/251957) Device Settings: Delivery Mode: Auto CPAP (06/25/251957) CPAP (cm H2O): (AUTO CPAP 4-20) (06/25/2524) Interface: Delivery Method: Full Face Mask (06/25/251957) Mask/Prong Size:Mask/Prong Size: M (06/25/251957) Oxygen Flow (if applicable): Oxygen Therapy Flow (L/min): 3 (06/25/251957) Is the patient wearing the device? No Micky Leal RCP * Care Plan - Mathew Coleman, Roofer Applicator - 06/25/2025 12:48 PM CDT [facility] Acute Physical Therapy Treatment 06/25/2025 Room: [address] [place] [address] Name: Isaac Franklin Age: 65 y.o. Date of : 1960 Insurance: Payor: MEDICAID PENDING / Plan: MEDICAID PENDING [place] / Product Type: Other / Subjective Information Comments: Pt reports eager to walk. Pain: Refer to Doc. Flowsheet for documented pain levels. Vitals Patient on 2 liters/min via nasal cannula After activity: HR: 70 bpm, O2 Sat: 93% Functional Mobility/Treatment Functional Mobility: Sit to stand: Independent from recliner. Bed to chair: modified Independent Gait Trainin feet with single cane. modified Independent on level surface. Deficits affectingfunction/Deviations noted: Pt needed a short, standing rest break. Patient required verbal cues proper breathing techniques Functional exercise: Functional exercise: sit to stand x 2, with Independent verbal and written cues required to perform exercises correctly Therapeutic exercises: AROM: 1 set/s of 15 repetitions of the following exercises to improve circulation, functional mobility, & strength: sitting: ankle pumps, hip flexion, and long arc quads [facility] Basic Mobility How much help from another person does the patient currently need? Score 1. Turning from your back to your side while in a flat bed without using bedrails? 4 - None (independent) 2. Moving from lying on your back to sitting on the side of a flat bed without using bedrails? 4 - None (independent) 3. Moving to and from a bed to a chair (including a wheelchair)? 4 - None (independent) 4. Standing up from a chair using your arms (e.g., wheelchair, or bedside chair)? 4 - None (independent) 5. Walking in hospital room? 3 - A little (supervision to min assist) 6. Climbing 3-5 steps with a railing? 3 - A little (supervision to min assist) Total score 22/24 0-16 - indicates likely facility discharge 17-24 indicates likely community discharge * scores determined based on patient report, observation or professional expertise Assessment and Plan Functional Progress: Patient is progressing towards the goal(s) for mobility, gait. Patient does require skilled PT. Specific focus for next treatment session: Progress gait distance. Stair training. Continue with plan of care as previously established until goals met or patient discharges from facility Recommendations Based on PT assessment of and/or progress with physical function, -[facility] Basic Mobility score, and available home support, anticipated discharge disposition: Home with assistance (06/25/251246). Safety concerns if patient is without supervision/assistance. . * The final discharge location is determined through physician, case management, and patient/caregiver input along with insurance authorization of skilled services when appropriate PT Recommended DME: No new DME recommended (06/25/251246). Daily activity recommendations: Ambulation with nursing three times daily Precautions Patient Precautions: Aspiration and Bleeding Bracing/Orthotics: none Weight Bearing: No Restrictions Education/Training Provided Additional education provided: home exercise program Learner, method of education, and response to learning listed in Education tab in Epic. Disposition At start of session, patient found sitting in chair At end of session, patient left seated in chair Consent to treatment given by: Patient and Nurse. Prior to PT session a thorough chart review was completed, including prior therapy notes, as applicable. Further treatment notes and therapeutic goals can be found in Care Plan Notes. If the patient discharges from the facility before another therapy visit, this shall serve as the therapy discharge summary. Thank you for this referral, Mathew Coleman Roofer Applicator Problem: Physical Mobility, Impaired Goal: Mobility goal: Improve ambulation by discharge Description: Patient will ambulate 300 feet on level surface, using no assistive device, with supervision so patient can navigate discharge environment. Outcome: Progressing Flowsheets Taken 06/25/2025 1247 by Mathew Coleman Roofer Applicator Fri: X Pain Rating: Rest: 0 Pain Rating: Activity: 0 Present Activity: ??? up in mena ??? ambulating PT Current Discharge Recommendation: Home with assistance PT Recommended DME: No new DME recommended Taken 06/23/2025 0828 by Meaghan Amor Roofer Applicator Therapy Plan of Care: 7.3 * Care Plan - Moni Bolden Wool And Pelt Grader - 06/25/2025 10:45 AM CDT [facility] Acute Occupational Therapy Treatment 06/25/2025 Room: [address] [place] [address] Name: Isaac Franklin Age: 65 y.o. Patient Class: Inpatient Date of : 1960 Insurance: Payor: MEDICAID PENDING / Plan: MEDICAID PENDING [place] / Product Type: Other / Prior to OT session thorough chart review completed, including prior OT notes as applicable. Consent to treat provided by patient and nurse Date of admission: 06/12/2025 SUBJECTIVE Patient Statements Information provided by: patient Patient/family comments: pt supine in bed; pleasant and willing to work with therapy Pain: Refer to flowsheet for documentation of pain and interventions. OBJECTIVE Cognition Level of alertness: alert Orientation: x4 WNL Command following: good Safety awareness: good Memory: WFL conversationally Occupational Performance Activities of Daily Living Grooming: supervision for watchful oversight for safety seated in chair to wash face and brush teeth Additional ADLs not completed due to focus on functional mobility to increase independence in ADLs. Functional Mobility All mobility completed with gait belt and non-skid socks Bed mobility: supervision for watchful oversight for safety and for possible LOB supine > sit EOB pt utilizing bed rails for suppoer Sit to stand: supervision for watchful oversight for safety and for possible LOB from EOB Functional ambulation: supervision for watchful oversight for safety and for possible LOB x ~5 feetEOB>chair without AD Chair transfer: supervision for watchful oversight for safety and for possible LOB ;pt utilizing arm rests to slow descent Sitting balance: supervision for watchful oversight for safety and for possible LOB for static tasks and dynamic tasks seated EOB and in chair Standing balance: supervision for watchful oversight for safety and for possible LOB for static tasks and dynamic tasks when ambulating [facility] AM-PAC Daily Activity How much help from another person does the patient currently need? Score 1. Putting on and taking off regular lower body clothing? 3 - A little (supervision to min assist) 2. Bathing (including washing, rinsing, drying)? 3 - A little (supervision to min assist) 3. Toileting, which includes using toilet, bedpan or urinal? 3 - A little (supervision to min assist) 4. Putting on and taking off regular upper body clothing? 3 - A little (supervision to min assist) 5. Taking care of personal grooming such as brushing teeth? 3 - A little (supervision to min assist) 6. Eating meals? 3 - A little (supervision to min assist) Total score 18/24 0-19 indicates likely facility discharge 19-24 indicates likely community discharge *Scores determined based on patient report, observation or professional expertise* Additional Interventions No additional treatment provided during this session Education provided to patient regarding treatment plan and session goals Education response: verbalized understanding Vitals Current O2 requirement: 2 L/min via nasal cannula Vital signs stable throughout. Additional vitals comments: Patient resting comfortably and denies symptoms throughout. Precautions Patient precautions: aspiration and bleeding Patient bracing/orthotics: none Weight bearing: no restrictions ASSESSMENT & PLAN Assessment Patient is progressing towards care plan goals. Patient is currently functioning near his prior level of function. Plan Continue with plan of care as previously established until patient goals are met or the patient discharges as decreased activity tolerance, decreased UE strength, and decreased functional standing balance continue to limit patient's occupational performance. Anticipate 1 more OT treatment session with specific focus on toileting and ADLs at sink Recommendations Based on OT assessment of patient's ability to complete self-care tasks and their AM-PAC Daily Activity Score, anticipated discharge disposition: Home with assistance (06/25/251044) Rationale: Patient needs home environment assessment, DME recommendations, and modifications to improve functional performance for ADLs and IADLs within their typical environment.. * The final discharge location is determined through physician, case management, and patient/caregiver input along with insurance authorization of skilled services when appropriate OT recommended DME and AE upon discharge: No new DME recommended (06/22/25928) No new additional adaptive equipment necessary (06/22/25928) Nursing Staff Mobility Recommendations Recommended daily activity during admission: toileting in bathroom, up with supervision, and up to chair for meals Disposition At start of session, patient found lying in bed At end of session, patient left seated in chair, call light in reach, phone in reach, patient instructed not to get up without staff assistance, friend/family present in room, and staff notified of patient location/events of session Further treatment notes and therapeutic goals can be found in Care Plan Notes. If the patient discharges from facility before another therapy visit, this shall serve as therapy discharge summary. Thank you for this referral, Moni Bolden Wool And Pelt Grader Problem: Personal Therapy Goal Goal: Patient's personal therapy goal Description: Patient will complete toileting with minimal assistance using good safety and judgement and adaptive equipment PRN. Patient will require minimal assistance with grooming while standing at the sink using adaptive equipment and compensatory techniques PRN. Patient will maintain dynamic standing balance for 10 minutes with minimal assistance for improved functional independence with tasks such as LE dressing, toilet hygiene, and bathing. (06/25 Goal met) Patient will perform bed mobility in preparation for ADL task with supervision . (06/25 Goal met) Patient will complete functional transfers with supervision using least restrictive device PRN. Outcome: Progressing Flowsheets Taken 06/25/2025 104 by Moni Bolden, Wool And Pelt Grader Fri: X Assistive Devices Screening: Gait belt Ambulation Distance (feet): 5 Present Activity: up in room ambulating up to chair Physical Assist/Nonphysical Assist: supervision OT Current Discharge Recommendation: Home with assistance OT Treatment Start Time: 1045 OT Treatment Stop Time: 1110 Taken 06/22/2025 09 by Karen Jones, Occupational Therapist Therapy Plan of Care: 7.3 OT Recommended DME: No new DME recommended Additional Recommended Adaptive Equipment: No new additional adaptive equipment necessary * Care Plan - Edwige Joy, RN - 06/25/2025 10:25 AM CDT Problem: Discharge Planning Goal: Identify discharge needs upon admission and through discharge Description: Outcome: Progressing Registered Mail Clerk Discharge Planning Met with pt at bedside. And he would like to go home but we will await PT/Ot recs for safe pt DC. Expected Discharge Date Jun 27, 2025 Plan Discharge To: Home with family assist (06/25/251024) Plan Discharge To - Alternate: Inpatient Rehab Facility (06/25/25 102) Family/Caregiver Assist Does the patient have family and/or a caregiver that is willing, able and available to assist if needed?: Yes (06/25/251024) Name and Relation: Dior, spouse (06/25/251024) Referrals Status: Facility Referrals - Pending Follow-up on Referrals Sent: No (06/25/251024) Preferred Pharmacy: [facility] - [facility] [address] Patient / Family Communications: Patient/Family Communications: Plan Discharge To Update (06/25/251024) Discharge Plan Agreed Upon: Patient (06/25/251024) Resources Provided: Resource List Given: Care facilities (06/22/25 1534) Resource List Given To: Patient (06/22/25 153) Transportation Plan: Has discharge transport been arranged?: No (06/25/251024) Follow Up Appointments Scheduled Edwieg Joy RN * Care Plan - Gemma Lion RN - 06/25/2025 6:02 AM CDT Shift Summary Heparin infusion was stopped at the beginning of the shift as ordered. Apixaban was administered in the evening as scheduled. DexmedeTOMIDine in dextrose 5% was administered multiple times, including during a CT scan in [facility] CT Scan, and the rate was adjusted during the night. No pain was reported and wound assessments remained stable throughout the shift. Overall, the patient remained comfortable and safety interventions were maintained. Infection Risk/Actual: Infection prevention, control, or resolution by discharge: No changes were noted in wound assessments or midline catheter status, and antimicrobial dressing remained in place; CBC showed elevated WBC and neutrophil counts, but no conclusions can be drawn from these results alone. Safety/Fall: Absence of fall, injury, harm during hospitalization: High fall risk interventions were completed each shift, and safety checks were consistently documented with no reported incidents. * Care Plan - Nedra Cosme RCP - 06/25/2025 12:52 AM CDT NOC CPAP Note Is this the patient's device? No Adult Vent Non-Invasive: Adult Vent Non-Invasive: Nocturnal (06/25/2524) Device Asset ID# (If using facility equipment): Vent ID: [id number] (06/25/2524) CPAP Daily Charge: *CPAP Daily Charge: Yes (06/25/2524) Device Name: Vent Type: AirSense (06/25/2524) Device Settings: Delivery Mode: Standby (06/25/2524) CPAP (cm H2O): (AUTO CPAP 4-20) (06/25/2524) Interface: Delivery Method: Full Face Mask (06/25/2524) Mask/Prong Size:Mask/Prong Size: M (06/25/2524) Oxygen Flow (if applicable): Oxygen Therapy Flow (L/min): 3 (06/25/2524) Is the patient wearing the device? No Nedra Cosme RCP * Care Plan - Edwige Joy RN - 06/24/2025 2:13 PM CDT Problem: Discharge Planning Goal: Identify discharge needs upon admission and through discharge Description: Outcome: Progressing Registered Mail Clerk Discharge Planning Following along for updated PT/OT for safe pt DC. Expected Discharge Date Jun 25, 2025 [facility] Plan Discharge To - Alternate: Inpatient Rehab Facility (06/24/251412) Referrals Status: Facility Referrals - Pending Follow-up on Referrals Sent: No (06/24/251412) Preferred Pharmacy: [facility] [address] Patient / Family Communications: Patient/Family Communications: Plan Discharge To Update (06/24/251412) Discharge Plan Agreed Upon: Patient (06/22/251533) Resources Provided: Resource List Given: Care facilities (06/22/25 153) Resource List Given To: Patient (06/22/25 153) Transportation Plan: Has discharge transport been arranged?: No (06/24/251412) Follow Up Appointments Scheduled Edwige Joy RN * Therapy Evaluation - Amberly Singh SLP - 06/24/2025 11:19 AM CDT [facility]. ; Fax. Acute Speech-Language Pathology Modified Barium Swallow Evaluation 06/24/2025 Room: [address] [place] [address] Name: Isaac Franklin Age: 65 y.o. Date of : 1960 Insurance: Payor: MEDICAID PENDING / Plan: MEDICAID PENDING [place] / Product Type: Other / Patient class: Inpatient Confirmed patient's identification of name and date of : by patient report Consent to treatment given by patient with results as follows: Onset of illness/injury or date of surgery: 06/12/2025 HPI Isaac Franklin is a 65 y.o. male admitted for inferior STEMI, VF arrest, cardiogenic shock. Intubated 06/12-06/19. Subjective Information and Clinical Observations Patient/Family Goals Statement: I was for four hours. Pain: Refer to Doc Flowsheet for documented pain levels. Level of Alertness: Alert/Responsive Mood/Affect: Patient calm and cooperative Position: Upright Circumstances negatively impacting performance this date: none Diagnostic Intervention Provided Speech Language Pathology Video Fluoro Swallow Objective Information Primary Swallowing Complaint: Clinical swallow evaluation revealed signs of oropharyngeal dysphagiaand concern for aspiration. MBS ordered to define swallow physiology, determine aspiration risk, and develop a treatment plan. Patient has food/contrast allergies: none Diet prior to MBS: NPO Patient has Large bore NG tube and Supplemental oxygen at 4 L/min via nasal cannula Referring Provider: Issac Rico MD Fluoroscopy Conditions Lateral View: thin liquid, puree-thin, puree-thick, semi-solid, and solid Anterior/Posterior View: thin liquid and puree-thick Position: seated upright C-arm utilized to perform MBS: Yes Oral Mucosa: dry, red Secretion Management: wet gurgly respirations at baseline Dentition: edentulous upper and missing some lower teeth; upper denture not present The patient self fed during the session. Anatomic view under fluoroscopy: Unremarkable Oral Phase abnormal mild Observations: premature spillage with slow initiation of the pharyngeal swallow, slow prolonged chewing/mashing with complete re-collection, and increased tongue base residue Oral Phase Comments: Mastication was slowed d/t absent upper denture but functional. Increased oraland tongue base residue at times which was reduced with repeat dry swallows. Poor oral control noted intermittently with liquid boluses pooling into the vallecular space and pyriform sinuses before swallow initiation. Pharyngeal Phase abnormal mild Observations: maximal vallecular pooling, minimal pyriform sinus pooling, reduced laryngeal vestibular closure, partial epiglottic inversion, moderate vallecular stasis, and minimal pyriform sinus stasis Pharyngeal Phase Comments: Delayed initiation of the pharyngeal swallow with the head of liquid boluses reaching the pyriforms intermittently. Laryngeal elevation and anterior hyoid excursion appeared intact. Epiglottic inversion was reduced when large bore NG tube was present and improved upon itsremoval. Premature spillage and mistiming of laryngeal vestibule closure contributed to instances of penetration. One instance of aspiration occurred d/t poor management of small pyriform residue while large bore NG tube was in place. Min- mod pharyngeal residue noted which improved upon removal of NGT. Repeat swallows reduced much of the pharyngeal residue. Esophageal Screening Screen of bolus transit through the esophagus was completed while the patient was in a seated, upright position. Findings revealed esophageal retention which improved with liquid wash. Penetration/Transglottic Aspiration THIN LIQUID with NG tube Penetration occurred: Yes, during and after trials presented via straw Aspiration occurred: Yes, after trials presented via straw Rosenbek Penetration score of 3. Material enters the airway, remains above the vocal folds, and is not ejected from the airway. Patient response: no. , 5. Material enters the airway, contacts the vocal folds, and is not ejected from the airway. Patient response: no. , and 6. Material enters the ariway, passes below the vocal folds, and is ejected into the larynx or out of the airway. THIN LIQUID without NG tube Penetration occurred: Yes, during trials presented via straw Aspiration occurred: No Rosenbek Penetration score of 1. Material does not enter airway and 3. Material enters the airway, remains above the vocal folds, and is not ejected from the airway. Patient response: yes: throat clear THIN PUREE with NG tube Penetration occurred: No Aspiration occurred: No Rosenbek Penetration score of 1. Material does not enter airway THICK PUREE with NG tube Penetration occurred: No Aspiration occurred: No Rosenbek Penetration score of 1. Material does not enter airway SEMI-SOLID with NG tube Penetration occurred: No Aspiration occurred: No Rosenbek Penetration score of 1. Material does not enter airway SOLID with NG tube Penetration occurred: No Aspiration occurred:No Rosenbek Penetration score of 1. Material does not enter airway Swallowing Strategies and Interventions Single, small volume drinks via small bore straw Repeat dry swallows Assessment/Summary of Study Did aspiration occur: Yes, one instance of small volume aspiration of thin liquid occurred while NGtube was in place. Intermittent deep penetration also observed. Swallow safety improved upon removal of NG tube with only scant volume, shallow penetration of thin liquid occurring. Study Summary: Pt presents with mild oropharyngeal dysphagia as confirmed by physiologic impairments noted on MBS. Pt's dysphagia is likely secondary to prolonged intubation and generalized weakness.Recommend diet initiation of regular textures and thin liquids with STRICT utilization of safe swallowing strategies listed below. Pt will benefit from ongoing PULVERIZER MILL OPERATOR intervention to ensure tolerance of diet and use of strategies. Spoke with MD of above findings, and MD in agreement. Swallowing Recommendations DIET RECOMMENDATIONS: Regular and IDDSI 0 Normal (Thin) Liquids PATIENT SPECIFIC SWALLOWING GUIDELINES: Single, small volume drinks Medications to be provided one at a time Liquids: open cup or small bore straw only; avoid large bore/[facility] mug straws GENERAL SWALLOWING GUIDELINES: Patient should be seated close to 90 degrees, preferably in the chair Remain upright for 30-60 minutes after meals Take frequent drinks during meals Small sips/bites Eat slowly Minimize distractions during oral intake (conversations/TV) Monitor for signs and symptoms of aspiration Good oral care 3 times every day with toothbrush Recommendations DISCHARGE RECOMMENDATIONS: Inpatient Rehabilitation Facility as patient is actively engaged in therapy, has the potential to make progress toward goals and tolerate 3 hours of therapy. * The final discharge location is determined through physician, case management, and patient/caregiver input along with insurance authorization of skilled services when appropriate Recommendations for referral to another service: None at this time Precautions Plan of Care Patient precautions: Aspiration and Bleeding Continue PULVERIZER MILL OPERATOR services to address swallowing deficits (dysphagia), anticipate follow up in the next 2-4 days or as medical condition changes. Plan of care to continue for the duration of the patient's acute care hospital stay or until goals are met. Please notify speech therapy department should the patient's condition change and/or patient requires PULVERIZER MILL OPERATOR services prior to the next anticipated PULVERIZER MILL OPERATOR visit. Education Disposition Regarding: results and recommendations of MBS and speech therapy plan of care Learner, method of education, and response to learning listed in Education tab in Epic Before session: Patient brought to radiology by podiatric technician After session: Patient transferred to cart and returned to room by podiatric technician Current Diagnoses/Past Medical History Pertinent diagnoses and past medical history related to this hospital stay are present in physicianH&P and physician daily notes. Prior to session, completed thorough chart review. Reviewed prior therapy treatment notes as applicable. Further treatment notes and therapeutic goals can be found in Care Plan Notes. If the patient discharges from facility prior to another therapy visit, this shall serve as the therapy discharge summary Thank you for this referral, Amberly Singh M.S., [facility]-PULVERIZER MILL OPERATOR Acute Speech Therapy Charge Zone Phone #[phone] Acute Speech Therapy Charge Pager #[phone] * Care Plan - Moni Bolden, Wool And Pelt Grader - 06/24/2025 11:00 AM CDT Attempted to see patient for OT treatment. Patient unavailable for therapy session due to being offthe floor for imaging, discussed with nursing. Will continue with attempts for evaluation/established plan of care. Thank you, JENSEN Ricks * Care Plan - Lise Shell RN - 06/24/2025 5:43 AM CDT Shift Summary EKG at 5:08 AM confirmed atrial fibrillation, with ongoing heparin therapy and adjustments, but anti-Xa levels remained subtherapeutic. Episodes of agitation and altered consciousness occurred overnight, managed with dexmedeTOMIDine and PRN clonazePAM, with resolution by end of shift. Respiratory status was supported with supplemental oxygen and aspiration precautions, with intermittent tachypnea and variable SpO2 documented. Tube feeding was tolerated without complications, but glucose and BUN levels were elevated on labs. Remained under close monitoring for cardiovascular, respiratory, and infection- related concerns throughout the shift. Infection Risk/Actual: Infection prevention, control, or resolution by discharge: WBC and neutrophil counts were elevated throughout the shift, and ecchymosis was noted on the left anterior thigh andright anterior groin, but no redness, warmth, or drainage was documented at the naso/oral tube insertion site; antimicrobial dressing was in place for the midline catheter and it flushed without difficulty. Demonstrates effective coping mechanisms and psychosocial functioning throughout hospitalization: Periods of agitation and altered consciousness occurred overnight but resolved by the end of the shift, with RASS and bCAM assessments returning to alert and calm and negative, respectively; clonazePAMwas administered PRN for anxiety. Achieve optimal cardiovascular function by discharge or maintain baseline function: Blood pressure,heart rate, and mean arterial pressure fluctuated, with transient hypotension and tachycardia noted; EKG confirmed STEMI and atrial fibrillation, and heparin therapy was adjusted and administered multiple times, but anti-Xa levels remained below therapeutic range. Achieve optimal respiratory function by discharge and/or maintain baseline function: Respiratory rate was intermittently elevated, and SpO2 levels varied but remained above 90% with supplemental oxygen via nasal cannula; coarse breath sounds were documented and aspiration precautions were maintained. Achieve optimal nutrition and fluid status to meet metabolic needs throughout hospitalization: Tubefeeding was administered at full strength via continuous drip without signs of intolerance, and blood glucose levels remained elevated throughout the shift; BUN was also elevated on metabolic panel. * Care Plan - Amanda Harrington RCP - 06/24/2025 12:40 AM CDT NOC CPAP Note Is this the patient's device? No Adult Vent Non-Invasive: Adult Vent Non-Invasive: Nocturnal (06/23/252251) Device Asset ID# (If using facility equipment): Vent ID: [id number] (06/23/252251) CPAP Daily Charge: *CPAP Daily Charge: Yes (06/24/2538) Device Name: Vent Type: AirSense (06/23/252251) Device Settings: Delivery Mode: Auto CPAP;Standby (06/23/252251) CPAP (cm H2O): (Autoset 4-20 cmH2O) (06/23/252251) Interface: Delivery Method: Full Face Mask (06/23/252251) Mask/Prong Size:Mask/Prong Size: M (06/23/252251) Oxygen Flow (if applicable): Oxygen Therapy Flow (L/min): 3 (06/23/251899) Is the patient wearing the device? No, not at this time. Amanda Harrington RCP * Care Plan - Edwige Joy RN - 06/23/2025 11:50 AM CDT Registered Mail Clerk Discharge Planning Pt currently on IV precedex, asleep and with sitter at bedside. Per sitter, pt confused and pullingat tubes when awake. Will defer my interview for a more appropriate time. Expected Discharge Date Jun 25, 2025 Plan [facility]charge To: [facility] (06/23/251148) Plan Discharge To - Alternate: Inpatient Rehab Facility (06/23/251148) Referrals Status: Facility Referrals - Pending Follow-up on Referrals Sent: No (06/23/251148) Preferred Pharmacy: [facility] - [place] [address] [address] Patient / Family Communications: Patient/Family Communications: Plan Discharge To Update (06/22/251533) Discharge Plan Agreed Upon: Patient (06/22/251533) Resources Provided: Resource List Given: Care facilities (06/22/251533) Resource List Given To: Patient (06/22/251533) Transportation Plan: Has discharge transport been arranged?: No (06/23/25 5829) Follow Up Appointments Scheduled Edwige Joy RN * Care Plan - Meaghan Amor, Roofer Applicator - 06/23/2025 8:38 AM CDT [facility]. Acute Physical Therapy Treatment 06/23/2025 Room: [address] [place] [address] Name: Isaac Franklin Age: 65 y.o. Date of : 1960 Insurance: Payor: MEDICAID PENDING / Plan: MEDICAID PENDING [place] / Product Type: Other / Subjective Information Comments: Pt pleasant and agreeable to therapy. Sitter present in room throughout session d/t poor mentation and increased agitation during the night. Pt following commands and participating well. Session limited d/t drop in BP with position change. Pain: Refer to Doc. Flowsheet for documented pain levels. Vitals Patient on 4.5 liters/min via nasal cannula On continuous monitor BP: Supine 117/74 Sitting 113/63 Standing 92/61 Sitting post standing exercises 87/49 with c/o dizziness ~3 minutes in supine post activity 126/70 RN notified Functional Mobility/Treatment Functional Mobility: Rolling: supervision for watchful oversight for safety and to set up task Scooting: supervision for watchful oversight for possible LOB to get hips to EOB Supine to sit: minimal assistance to attain upright with trunk Sit to supine: supervision for watchful oversight for safety Sit to stand: minimal assistance to boost up from EOB Gait Training: Did not perform due to low BP Patient required verbal cues energy conservation, proper posture, use of UE's in transfers, to get center of gravity over ASHLEY, and for assistive device placement with regards to feet/trunk Functional exercise: Functional exercise: sit to stand x 1, with minimal assistance timed standin minutes to perform standing exercises Balance exercise: sitting: at EOB x 3 minutes: supervision for watchful oversight for safety and for possible LOB verbal and tactile cues required to perform exercises correctly Therapeutic exercises: AROM: 1 set/s of 10 repetitions of the following exercises to improve circulation, functional mobility, & strength: supine: ankle pumps, heel slides, hip abduction, and straight leg raises standing: hip flexion, heel raises, and mini-squats [facility] Basic Mobility How much help from another person does the patient currently need? Score 1. Turning from your back to your side while in a flat bed without using bedrails? 3 - A little (supervision to min assist) 2. Moving from lying on your back to sitting on the side of a flat bed without using bedrails? 3 - A little (supervision to min assist) 3. Moving to and from a bed to a chair (including a wheelchair)? 3 - A little (supervision to min assist) 4. Standing up from a chair using your arms (e.g., wheelchair, or bedside chair)? 3 - A little (supervision to min assist) 5. Walking in hospital room? 2 - A lot (max to mod assist) 6. Climbing 3-5 steps with a railing? 2 - A lot (max to mod assist) Total score 16/24 0-16 - indicates likely facility discharge 17-24 indicates likely community discharge * scores determined based on patient report, observation or professional expertise Assessment and Plan Functional Progress: Patient is progressing towards the goal(s) for BLE strengthening. Patient does require skilled PT. Specific focus for next treatment session: gait with chair follow. Continue with plan of care as previously established until goals met or patient discharges from facility Recommendations Based on PT assessment of and/or progress with physical function, -[facility] Basic Mobility score, potential for improvement, available home support, participation in therapeutic intervention, tolerance for activity, and safety , anticipated discharge disposition: Inpatient rehab unit/facility (06/23/25 0255). Pt needs intensive skilled PT services. Patient is actively engaged in therapy, has the potential to make progress toward goals and tolerate 3 hours of therapy. . * The final discharge location is determined through physician, case management, and patient/caregiver input along with insurance authorization of skilled services when appropriate PT Recommended DME: To be determined (06/23/25 0828). to be determined at next level of care Daily activity recommendations: Up with 1 assist, Ambulate to bathroom with staff, and Up in chair for meals Precautions Patient Precautions: Fall Risk, Oxygen, and Bleeding Bracing/Orthotics: none Weight Bearing: No Restrictions Education/Training Provided Additional education provided: basic time frames for healing, discharge planning, functional mobility, plan of care, proper body mechanics, safety, and use of assistive device Learner, method of education, and response to learning listed in Education tab in Epic. Disposition At start of session, patient found lying in bed At end of session, patient left lying in bed, call light in reach, phone in reach, bed alarm in place, patient instructed to not get up without assistance from staff, supervised by staff resident care manager rn , and staff notified of patient's location Consent to treatment given by: Patient and Nurse Prior to PT session a thorough chart review was completed, including prior therapy notes, as applicable. Further treatment notes and therapeutic goals can be found in Care Plan Notes. If the patient discharges from the facility before another therapy visit, this shall serve as the therapy discharge summary. Thank you for this referral, Meaghan Amor, Roofer Applicator [facility] * Care Plan - Nedra Cosme [facility] - 06/23/2025 12:06 AM CDT NOC CPAP Note Is this the patient's device? No Adult Vent Non-Invasive: Adult Vent Non-Invasive: Nocturnal (06/23/253) Device Asset ID# (If using facility equipment): Vent ID: [id number] (06/23/253) CPAP Daily Charge: *CPAP Daily Charge: Yes (06/23/253) Device Name: Vent Type: AirSense (06/23/253) Device Settings: Delivery Mode: Auto CPAP (06/23/253) CPAP (cm H2O): (AUTO 4-20) (06/23/253) Interface: Delivery Method: Full Face Mask (06/23/253) Mask/Prong Size:Mask/Prong Size: M (06/23/253) Oxygen Flow (if applicable): Oxygen Therapy Flow (L/min): 3 (06/23/253) Is the patient wearing the device? Yes Nedra Cosme RCP * Treatment Plan - Korey Frazier, PHARMACIST - 06/22/2025 6:13 PM CDT [facility] Adult Heparin Anti-Xa Monitoring Protocol [facility] ORDERS ARE ENTERED ???PER PROTOCOL?? Nursing Orders: Heparin must be hung as primary IV on dedicated IV site, unless discussed with physician and exception is authorized Obtain an actual weight, not stated weight, for pharmacy verification Do not give IM injections unless credentialed prescriber is alerted and chooses to proceed. Exception: Patient may receive vaccinations without contacting provider. RN to hold pressure to site post administration for 2 minutes Call credentialed prescriber for any evidence of hematoma, decrease in hemoglobin of 2 gram/dL or more, or with any acute change in mental status When programming the smart pump, refer to weight in eMAR order (this may not correlate with patient's current weight) Verify weight in eMAR order matches weight in smartpump Enter actual volume infused into flowsheet directly from smart pump upon clearing the pump volume Laboratory Orders: Baseline: Unfractionated heparin monitoring (Anti-Xa), PTT, and CBC without differential if not obtained in the last 72 hours before starting IV Heparin Infusion monitoring: Timed Anti-Xa every 6 hours after the initiation of infusion, change in rate or bolus until 2 consecutive Anti-Xa are in therapeutic range PTT monitoring should be used instead of Anti-xa monitoring for the following: Facility only has PTT lab monitoring capabilities Patients who have received a Xa inhibitor Direct Oral Anticoagulant (DOAC) medication (rivaroxaban,apixaban, edoxaban), therapeutic Enoxaparin, or Fondaparinux within the last 48 hours Daily once stable: Anti-Xa daily while on heparin once stable Minimum every 3 days: CBC without differential drawn at minimum of every 3 days while on heparin Medication Orders: Discontinue ALL other orders for subcutaneous, oral or IV anticoagulants, for example but not limited to: enoxaparin (LOVENOX), or fondaparinux (ARIXTRA) or oral anticoagulants dabigatran (PRADAXA), apixaban (ELIQUIS), edoxaban (SAVAYSA) or rivaroxaban (XARELTO). This protocol is not recommended for use with continuous alteplase infusions. Contact provider for additional orders. Pharmacist to confirm indication to ensure correct protocol table is followed, if unclear from the physician order or via chart review Pharmacist to verify heparin rate changes based on lab results in the protocol tables below. Pharmacist may update the order and MAR to match the current infusion rate. Dosing Weight: Obtain using a scale, NOT stated weight order-specific heparin dosing weight to be calculated by pharmacist. If weight <= 100 kg, ACTUAL body weight will be used to perform dose calculations If weight exceeds 100 kg, an ADJUSTED body weight will be used to perform dose calculations Initial dosing weight to be used for heparin infusion for the duration of therapy. Caution should be used by the RN to observe that this is the weight programmed in the smart pump. DVT/PE Heparin Infusion (usual indication for VTE: PE/DVT) Per provider order - bolus or no bolus Adjusted body weight used for pts >100 kg Initial Bolus Dose 80 units/kg (MAX 10,000 units) Initial Infusion 18 units/kg/hour Anti-Xa (Units/mL) Bolus (if boluses are authorized by physician per infusion order) Hold Infusion IV infusion Change Next Level Less than 0.2 60 units/kg 0 min Increase heparin dose by 3 units/kg/hr 6 hours 0.2 - 0.29 30 units/kg 0 min Increase heparin dose by 2 units/kg/hr 6 hours 0.3 - 0.7 NO CHANGE Every 6 hours x 2 then every AM 0.71 - 0.8 none 0 min Decrease heparin dose by 1 units/kg/hr 6 hours 0.81 - 0.9 none 30 min Decrease heparin dose by 2 units/kg/hr 6 hours Greater than 0.9 none 60 min Decrease heparin dose by 3 units/kg/hr 6 hours Cardiac Heparin Infusion (usual indication: Atrial fibrillation, mechanical valves, ACS, high bleedrisk) Per provider order - bolus or no bolus Adjusted body weight used for pts >100 kg Initial Bolus Dose Atrial fibrillation, mechanical valves, high bleed risk: 60 units/kg (MAX 7500 units) ACS: 60 units/kg (MAX 4000 units) Initial Infusion Atrial fibrillation, mechanical valves, high bleed risk: 15 units/kg/hour ACS: 12 units/kg/hour (MAX 1000 units/hour) Anti-Xa (Units/mL) Bolus (if boluses are authorized by physician per infusion order) Hold Infusion IV infusion Change Next Level Less than 0.2 30 units/kg 0 min Increase heparin dose by 2 units/kg/hr 6 hours 0.2 - 0.29 15 units/kg 0 min Increase heparin dose by 1 units/kg/hr 6 hours 0.3 - 0.6 NO CHANGE Every 6 hours x 2 then every AM 0.61 - 0.7 none 0 min Decrease heparin dose by 1 units/kg/hr 6 hours 0.71 - 0.9 none 30 min Decrease heparin dose by 2 units/kg/hr 6 hours Greater than 0.9 none 60 min Decrease heparin dose by 3 units/kg/hr 6 hours * Care Plan - Sara Gallagher RN - 06/22/2025 3:34 PM CDT Problem: Discharge Planning Goal: Identify discharge needs upon admission and through discharge Description: Outcome: Progressing Registered 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 S/P AV ECMO placed on 06/12. Plan: PT/OT recommends inpatient rehab with potential to improve. Patient requiring iv precedex. Patient is alert, intermittently confused, and on 3 LNC. MEP worked with patients family and Medicaid application completed. CM provided list of inpatient rehab facilities for review. Patient does not have benefits for intermediate or home healthcare. Prior to admission the patient lives independently at home with spouse. CM will continue to follow and assist with discharge. Plan Discharge To: Inpatient Rehab Facility (06/22/251533) Plan Discharge To - Alternate: Home with family assist (06/22/251533) Referrals Status: Facility Referrals - Pending Follow-up on Referrals Sent: No (06/12/25 6567) Preferred Pharmacy: [facility] [address] Patient / Family Communications: Patient/Family Communications: Plan Discharge To Update (06/22/251533) Discharge Plan Agreed Upon: Patient (06/22/251533) Resources Provided: Resource List Given: Care facilities (06/22/25 1538) Resource List Given To: Patient (06/22/25 3810) Transportation Plan: Has discharge transport been arranged?: No (06/12/25 4417) TBD Follow Up Appointments Scheduled Sara Gallagher RN * Care Plan - Zoila Rajput RN - 06/21/2025 4:53 PM CDT Shift Summary Amiodarone, dexmedeTOMIDine, and ketamine infusions were administered and adjusted, with amiodaroneand ketamine stopped later in the shift. QUEtiapine was given twice for mood and restlessness, and family presence was maintained throughoutthe shift. High fall risk interventions and safety checks were completed, and no injuries were documented while in restraints. Surgical wound dressings remained dry and intact, and urine output was clear and yellow throughout the shift. Cardiovascular parameters fluctuated, with periods of low blood pressure and mean arterial pressure, but heart rate and pulse remained mostly stable. Infection Risk/Actual: Infection prevention, control, or resolution by discharge: No drainage was noted from the left anterior thigh and right anterior groin surgical wounds, and dressing remained dry and intact; urine remained clear and yellow throughout the shift, and hygiene care was performed including antimicrobial cleansing and orta care with CHG. Safety/Fall: Absence of fall, injury, harm during hospitalization: High fall risk interventions were completed and safety checks were performed throughout the shift, with no injuries documented whilein restraints. Demonstrates effective coping mechanisms and psychosocial functioning throughout hospitalization: Mood remained labile and restlessness was noted later in the shift, with QUEtiapine administered twice and family presence maintained. Absence of Harm/Injury While in Restraints: No injury was documented during restraint monitoring, and circulation and ROM interventions were performed regularly. Achieve optimal cardiovascular function by discharge or maintain baseline function: Blood pressure and mean arterial pressure fluctuated, with periods of low readings and one episode of elevated BP; heart rate and pulse remained mostly stable, and amiodarone was administered and later stopped, with dexmedeTOMIDine and ketamine infusions adjusted and stopped during the shift. 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 S/P AV ECMO placed on 06/12. Plan: Awaiting PT/OT recommendations. Patient requiring iv precedex, iv ketamine. Patient is alert,oriented x 3, and on 3 LNC. Consult for community health worker for financial assistance. Corina Hernandez working with patient. Prior to admission the patient lives independently at home with spouse. CM will continue to follow and assist with discharge. Plan Discharge To: Home with family assist (06/21/25 114) Plan Discharge To - Alternate: Home with family assist (06/21/251146) Family/Caregiver Assist Does the patient have family and/or a caregiver that is willing, able and available to assist if needed?: Yes (06/21/251146) Name and Relation: spouse Dior (06/21/251146) Referrals Status: Facility Referrals - Pending Follow-up on Referrals Sent: No (06/12/25 1507) Preferred Pharmacy: [facility] - [facility] [address] Patient / Family Communications Resources Provided Transportation Plan: Has discharge transport been arranged?: No (06/12/25 1502) family Follow Up Appointments Scheduled Sara Gallagher RN * Clinical Hold Certification - Karlie Hamilton MD - 06/19/2025 5:05 PM CDT Clinical Hold Certification Note Acknowledgement of Continuation of Clinical Hold Status: The patient continues to lack decisional capacity and would reasonably be expected to pose risk of imminent harm to self or others if discharged. Due to these factors, the patient is not appropriate for discharge Against Medical Advice at this time, and clinical hold status is maintained. * Care Plan - Manjeet Santiago RCP - 06/18/2025 12:09 PM CDT Respiratory Care SBT Note: Did patient pass Daily Screen? yes Does patient meet the criteria for an SBT? yes If No, what is the reason? SBT start time: 1105 SBT end time: 1206 Vent settings for SBT: PS 0 PEEP 8 Did the patient pass the SBT? No Reason for SBT failure: Hypoxemia Notify physician if patient tolerates SBT for one hour. Time physician notified: N/A If patient passed SBT but was not extubated, select reason: Manjeet Santiago RCP * Care Plan - Manjeet Santiago RCP - 06/18/2025 7:20 AM CDT Respiratory Care SBT Note: Did patient pass Daily Screen? no Does patient meet the criteria for an SBT? no If No, what is the reason? Failed Daily Screen SBT start time: N/A SBT end time: N/A Vent settings for SBT: N/A Did the patient pass the SBT? N/A Reason for SBT failure: Notify physician if patient tolerates SBT for one hour. Time physician notified: N/A If patient passed SBT but was not extubated, select reason: Manjeet Santiago RCP * Care Plan - Kaity Hawley RN - 06/17/2025 4:25 PM CDT Problem: Discharge Planning Goal: Identify discharge needs upon admission and through discharge Description: Outcome: Progressing Registered Mail Clerk Discharge Planning Plan Discharge To: Home with family assist (06/12/25 7775) Plan Discharge To - Alternate: Home with family assist (06/12/25 171) Family/Caregiver Assist Does the patient have family and/or a caregiver that is willing, able and available to assist if needed?: Yes (06/12/25 664) Name and Relation: Abi Franklin (06/12/251508) Chart reviewed. Remains intubated and on VA ECMO. Continues on amiodarone drip, as well as versed and dilaudid IV for sedation and pain control. NG to suction for ileus. Ethics note indicates that all loved ones, including the SO are to be involved in major decisions. Patient SO, Abi, will be crew person for smaller decisions. Referrals Status: Follow-up on Referrals Sent: No (06/12/251508) Preferred Pharmacy: [facility] - [facility] [address] Patient / Family Communications Resources Provided Transportation Plan: Has discharge transport been arranged?: No (06/12/251508) Follow Up Appointments Scheduled Kaity Hawley RN * Care Plan - Julianna Robin RCP - 06/17/2025 8:37 AM CDT Respiratory Care SBT Note: Did patient pass Daily Screen? no Does patient meet the criteria for an SBT? no If No, what is the reason? Failed Daily Screen, Sedation and/or Paralytic, Physician Discretion, ECMO Julianna Robin RCP * Care Plan - Audi Potter RN - 06/14/2025 11:24 AM CDT Registered Mail Clerk Discharge Planning Plan Discharge To: Home with family assist (06/12/251508) Plan Discharge To - Alternate: Home with family assist (06/12/251508) Family/Caregiver Assist Does the patient have family and/or a caregiver that is willing, able and available to assist if needed?: Yes (06/12/251508) Name and Relation: Abi Franklin (06/12/251508) CM continues to follow for DC planning needs. Patient remains on ECMO, intubated and sedated. Multiple gtts, IV ABX today. Referrals Status: Follow-up on Referrals Sent: No (06/12/251508) Preferred Pharmacy: [facility] [address] Patient / Family Communications Resources Provided Transportation Plan: Has discharge transport been arranged?: No (06/12/25 001) Follow Up Appointments Scheduled Audi Potter RN * Treatment Plan - Dorothy Orellana, PHARMACIST - 06/13/2025 8:08 AM CDT [facility] Adult CUSTOM Heparin PTT Monitoring Protocol [facility] ORDERS ARE ENTERED ???PER PROTOCOL?? Nursing Orders: Heparin must be hung as primary IV on dedicated IV site, unless discussed with physician and exception is authorized Obtain an actual weight, not stated weight, for pharmacy verification Do not give IM injections unless credentialed prescriber is alerted and chooses to proceed. Exception: Patient may receive vaccinations without contacting provider. RN to hold pressure to site post administration for 2 minutes Call credentialed prescriber for any evidence of hematoma, decrease in hemoglobin of 2 gram/dL or more, or with any acute change in mental status When programming the smart pump, refer to weight in eMAR order (this may not correlate with patient's current weight) Verify weight in eMAR order matches weight in smartpump Enter actual volume infused into flowsheet directly from smart pump upon clearing the pump volume Laboratory Orders: Baseline: PTT and CBC without differential if not obtained in the last 72 hours before starting IV Heparin Infusion monitoring: Timed PTT every 6 hours after the initiation of infusion, change in rate or bolus until 2 consecutive PTT are in therapeutic range PTT monitoring should be used instead of Anti-xa monitoring for the following: Facility only has PTT lab monitoring capabilities Patients who have received a Xa inhibitor Direct Oral Anticoagulant (DOAC) medication (rivaroxaban,apixaban, edoxaban), therapeutic Enoxaparin, or Fondaparinux within the last 48 hours Daily once stable: PTT daily while on heparin once stable Minimum every 3 days: CBC without differential drawn at minimum of every 3 days while on heparin Medication Orders: Discontinue ALL other orders for subcutaneous, oral or IV anticoagulants, for example but not limited to: enoxaparin (LOVENOX), or fondaparinux (ARIXTRA) or oral anticoagulants dabigatran (PRADAXA),apixaban (ELIQUIS), edoxaban (SAVAYSA) or rivaroxaban (XARELTO). This protocol is not recommended for use with continuous alteplase infusions. Contact provider for additional orders. Pharmacist to confirm indication to ensure correct protocol table is followed, if unclear from the physician order or via chart review Pharmacist to verify heparin rate changes based on lab results in the protocol tables below. Pharmacist may update the order and MAR to match the current infusion rate. Dosing Weight: Obtain using a scale, NOT stated weight order-specific heparin dosing weight to be calculated by pharmacist. If weight <= 100 kg, ACTUAL body weight will be used to perform dose calculations If weight exceeds 100 kg, an ADJUSTED body weight will be used to perform dose calculations Initial dosing weight to be used for heparin infusion for the duration of therapy. Caution should be used by the RN to observe that this is the weight programmed in the smart pump. CUSTOM PTT Heparin Infusion (usual indication: DVT/PE, Atrial fibrillation, mechanical valves, ACS,high bleed risk) Per provider order - bolus or no bolus Adjusted body weight used for pts >100 kg Initial Bolus Dose (If needed) Atrial fibrillation, mechanical valves, high bleed risk: 60 units/kg (MAX 7500 units) ACS: 60 units/kg (MAX 4000 units) Initial Infusion DVT/PE, Atrial fibrillation, mechanical valves, high bleed risk: 15 units/kg/hour ACS: 12 units/kg/hour (MAX 1000 units/hour) PTT Bolus (if boluses are authorized by physician per infusion order) Hold Infusion IV infusion Change Next Level Less than 40 30 units/kg 0 min Increase heparin dose by 2 units/kg/hr 6 hours 40.1-49.9 15 units/kg 0 min Increase heparin dose by 1 units/kg/hr 6 hours 50-60 NO CHANGE Every 6 hours x 2 then every AM 60.1-70 None 0 min Decrease heparin dose by 1 units/kg/hr 6 hours >70 None 1 hour Decrease heparin dose by 2 units/kg/hr 6 hours * Care Plan - Rufina Pelayo RN - 06/12/2025 8:53 PM CDT Problem: Infection Risk/Actual Goal: Infection Risk/Actual: Infection prevention, control, or resolution by discharge Description: Outcome: Progressing Isaac 's midline IV will remain free from infection. Isaac 's peripheral IV will remain free from infection. * Care Plan - Anyi Nelson RN - 06/12/2025 5:06 PM CDT Problem: Infection, Risk/Actual (Adult) Goal: Infection, Risk/Actual: Infection Prevention/Resolution/Control Description: Patient will demonstrate the desired outcomes. Isaac 's midline IV will remain free from infection. Outcome: Progressing * Care Plan - Lelia Hollis RN - 06/12/2025 3:10 PM CDT Problem: Discharge Planning Goal: Identify discharge needs upon admission and through discharge Description: Outcome: Progressing Care Management Initial Assessment Initial Discharge Planning Assessment completed. Discussed Care Management's role and Discharge planning. Plan Discharge To: Home with family assist Plan Discharge To - Alternate: Home with family assist Does the patient have family and/or a caregiver that is willing, able and available to assist if needed? Yes - Name/Relation:Yasmeen Franklin - She has to go home Saturday am and will be back on Saturday Comments: Patient presented to outside hospital with chest pain. He is on ECMO due to a refractory VT/VF arrest. Underwent successful VA ECMO, he is intubated and sedated. Patient Discharge Planning Goal: unknown, his wants him to get better. Patient will potentially discharge to a SNF/NH? No Care Management visited with: spouseTrina via in person. Prior to admission, patient resides at: other mobile banner. Prior to admission, living arrangements: spouse. Prior to admission, patient's functional level:independent; uses N/A for mobility; needs assistancewith iADLs: N/A Community Ambulator: yes Prior to admission, the patient has the following DME? N/A Services in the home/community: none Receives hemodialysis? 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 No Prescription coverage: yes Preferred Pharmacy verified: [facility] [address] Insurance coverage verified: Payor: / Secondary Insurance:N/A Medicaid Status: NA Has VA Benefits: no Employment Status: retired PCP verified as: No primary care provider on file. Patient has not had a stay at an acute care hospital in the last 30 days. Recent Falls?: Plan for transportation at discharge: family Care Management contact information provided. Care Management will continue to follow and assist asneeded. * Gen AI ED Handoff - GENERATIVE AI HANDOFF NOTE - 06/12/2025 3:49 AM CDT SITUATION: Patient ( ) is a 65-year-old male who has been in the ER for 1 hours. He came to the ER due to post code. BACKGROUND: Drips the patient are on include: norepinephrine, last started at 2025-06-12 02:30:00; EPINEPHrine, last started at 2025-06-12 02:30:00; sodium, last started at 2025-06-12 03:17:27. This patient has no known allergies. ASSESSMENT: Patient's most recent vitals recorded in flowsheets were as follows: BP: / T: F RR: SPO2: 92% HR: WT: LBS BMI: not available Last recorded oxygen source was mechanical ventilation. The patient, Isaac Franklin, a 65-year-old male, presented with a history of tobacco use and experienced a witnessed V-fib arrest, requiring defibrillation and CPR. He was intubated and sedated upon arrival. The patient has no known comorbidities or allergies. He is currently critically ill, in cardiogenic shock with transient complete heart block, and has been hypotensive, requiring an epinephrine drip. He has not received any antiplatelet therapy at this point. RECOMMENDATION: The patient was administered a 324 mg aspirin loading dose via NG tube and a 4000 unit heparin bolus. He is on an epinephrine infusion and ketamine for sedation. The plan includes emergent left heart catheterization, coronary angiography with possible PCI, and the use of a temporary pacemaker as needed. Verbal consent for the procedure was obtained from the patient's . The patient is to be monitored one-to-one on telemetry. Spiritual Care Services are available for referral as needed. Ensure the patient remains NPO as per policy. *This summary was created by juan manuel LEONE. The responses are meant to enhance, not replace normal workflow. Please contact the ED nurse for any additional information.* * Treatment Plan - Gerri Fraga, PHARMACIST - 06/12/2025 3:45 AM CDT [facility] Adult Heparin Anti-Xa Monitoring Protocol [facility] ORDERS ARE ENTERED ???PER PROTOCOL?? Nursing Orders: Heparin must be hung as primary IV on dedicated IV site, unless discussed with physician and exception is authorized Obtain an actual weight, not stated weight, for pharmacy verification Do not give IM injections unless credentialed prescriber is alerted and chooses to proceed. Exception: Patient may receive vaccinations without contacting provider. RN to hold pressure to site post administration for 2 minutes Call credentialed prescriber for any evidence of hematoma, decrease in hemoglobin of 2 gram/dL or more, or with any acute change in mental status When programming the smart pump, refer to weight in eMAR order (this may not correlate with patient's current weight) Verify weight in eMAR order matches weight in smartpump Enter actual volume infused into flowsheet directly from smart pump upon clearing the pump volume Laboratory Orders: Baseline: Unfractionated heparin monitoring (Anti-Xa), PTT, and CBC without differential if not obtained in the last 72 hours before starting IV Heparin Infusion monitoring: Timed Anti-Xa every 6 hours after the initiation of infusion, change in rate or bolus until 2 consecutive Anti-Xa are in therapeutic range PTT monitoring should be used instead of Anti-xa monitoring for the following: Facility only has PTT lab monitoring capabilities Patients who have received a Xa inhibitor Direct Oral Anticoagulant (DOAC) medication (rivaroxaban,apixaban, edoxaban), therapeutic Enoxaparin, or Fondaparinux within the last 48 hours Daily once stable: Anti-Xa daily while on heparin once stable Minimum every 3 days: CBC without differential drawn at minimum of every 3 days while on heparin Medication Orders: Discontinue ALL other orders for subcutaneous, oral or IV anticoagulants, for example but not limited to: enoxaparin (LOVENOX), or fondaparinux (ARIXTRA) or oral anticoagulants dabigatran (PRADAXA), apixaban (ELIQUIS), edoxaban (SAVAYSA) or rivaroxaban (XARELTO). This protocol is not recommended for use with continuous alteplase infusions. Contact provider for additional orders. Pharmacist to confirm indication to ensure correct protocol table is followed, if unclear from the physician order or via chart review Pharmacist to verify heparin rate changes based on lab results in the protocol tables below. Pharmacist may update the order and MAR to match the current infusion rate. Dosing Weight: Obtain using a scale, NOT stated weight order-specific heparin dosing weight to be calculated by pharmacist. If weight <= 100 kg, ACTUAL body weight will be used to perform dose calculations If weight exceeds 100 kg, an ADJUSTED body weight will be used to perform dose calculations Initial dosing weight to be used for heparin infusion for the duration of therapy. Caution should be used by the RN to observe that this is the weight programmed in the smart pump. DVT/PE Heparin Infusion (usual indication for VTE: PE/DVT) Per provider order - bolus or no bolus Adjusted body weight used for pts >100 kg Initial Bolus Dose 80 units/kg (MAX 10,000 units) Initial Infusion 18 units/kg/hour Anti-Xa (Units/mL) Bolus (if boluses are authorized by physician per infusion order) Hold Infusion IV infusion Change Next Level Less than 0.2 60 units/kg 0 min Increase heparin dose by 3 units/kg/hr 6 hours 0.2 - 0.29 30 units/kg 0 min Increase heparin dose by 2 units/kg/hr 6 hours 0.3 - 0.7 NO CHANGE Every 6 hours x 2 then every AM 0.71 - 0.8 none 0 min Decrease heparin dose by 1 units/kg/hr 6 hours 0.81 - 0.9 none 30 min Decrease heparin dose by 2 units/kg/hr 6 hours Greater than 0.9 none 60 min Decrease heparin dose by 3 units/kg/hr 6 hours Cardiac Heparin Infusion (usual indication: Atrial fibrillation, mechanical valves, ACS, high bleedrisk) Per provider order - bolus or no bolus Adjusted body weight used for pts >100 kg Initial Bolus Dose Atrial fibrillation, mechanical valves, high bleed risk: 60 units/kg (MAX 7500 units) ACS: 60 units/kg (MAX 4000 units) Initial Infusion Atrial fibrillation, mechanical valves, high bleed risk: 15 units/kg/hour ACS: 12 units/kg/hour (MAX 1000 units/hour) Anti-Xa (Units/mL) Bolus (if boluses are authorized by physician per infusion order) Hold Infusion IV infusion Change Next Level Less than 0.2 30 units/kg 0 min Increase heparin dose by 2 units/kg/hr 6 hours 0.2 - 0.29 15 units/kg 0 min Increase heparin dose by 1 units/kg/hr 6 hours 0.3 - 0.6 NO CHANGE Every 6 hours x 2 then every AM 0.61 - 0.7 none 0 min Decrease heparin dose by 1 units/kg/hr 6 hours 0.71 - 0.9 none 30 min Decrease heparin dose by 2 units/kg/hr 6 hours Greater than 0.9 none 60 min Decrease heparin dose by 3 units/kg/hr 6 hours * ED Bed Hold Comment Note - Vadim Cochran RN - 06/12/2025 1:52 AM CDT Bed: 05 Expected date: 06/12/25 Expected time: 1:47 AM Means of arrival: Comments: Means of Arrival: [facility] 2 STEMI : TCD Paged [phone], ETA [phone] To Bed # 5 documented in this encounter Plan of Treatment Upcoming Encounters Date Type Department Care Team (Late st Contact Info) Description 10/21/2025 2:40 PM CONTINUOUS MINER OPERATOR HELPER Office Visit [facility] [address] [place] [address] Tri Price MD [address] [place] [id number] Madalyn Ernandez PA-C [address] [place] [id number] Pending Results Name Type Priority Associated Diagnoses Date/Time CVOR TRANSESOPHAGEAL STUDY Echocardiogram Routine 06/12/2025 4:56 AM CDT Scheduled Orders Name Type Priority Associated Diagnoses Orde r Schedule CVOR TRANSESOPHAGEAL STUDY Echocardiogram Routine Rad Once for 1 Occurrences starting 06/12/2025 until 06/12/2025 ECHO COMPLETE - CONTRAST AND STRAIN IF INDICATED Echocardiogram Routine Ischemic dilated cardiomyopathy (CMS/HCC) Expected: 09/21/2025, Expires: 08/21/2026 CBC WITH DIFFERENTIAL Lab Routine Thrombocytosis Leukocytosis, unspecified type Expected: 07/04/2025, Expires: 07/27/2025 BASIC METABOLIC PANEL Lab Routine Acute pulmonary edema (CMS/HCC) Expected: 07/04/2025, Expires: 07/27/2025 Scheduled Referrals Name Type Priority Associated Diagnoses Orde r Schedule AMB REFERRAL TO CARDIOLOGY Outpatient Referral Routine ST elevation myocardial infarction (STEMI), unspecified artery (CMS/HCC) Ischemic dilated cardiomyopathy (CMS/HCC) S/P coronary artery stent placement Paroxysmal atrial fibrillation (CMS/HCC) Acute pulmonary edema (CMS/HCC) Acute hypoxemic respiratory failure (CMS/HCC) Ordered: 06/27/2025 AMB REFERRAL TO CARDIAC ELECTROPHYSIOLOGY Outpatient Referral Routine CHB (complete heart block) (CMS/HCC) Ordered: 06/27/2025 AMB REFERRAL TO FAMILY PRACTICE Outpatient Referral Routine ST elevation myocardial infarction (STEMI), unspecified artery (CMS/HCC) Ischemic dilated cardiomyopathy (CMS/HCC) S/P coronary artery stent placement Paroxysmal atrial fibrillation (CMS/HCC) Acute pulmonary edema (CMS/HCC) Acute hypoxemic respiratory failure (CMS/HCC) Ordered: 06/27/2025 documented as of this encounter Procedures Procedure Name Priority Date/Time Associated Diagnosis Comments TELEMETRY REPORT 06/28/2025 3:38 AM CONTINUOUS MINER OPERATOR HELPER ECHO LIMITED W CONTRAST Stat 06/27/2025 10:50 AM CONTINUOUS MINER OPERATOR HELPER POC GLUCOSE Routine 06/27/2025 7:09 AM CONTINUOUS MINER OPERATOR HELPER POC GLUCOSE Routine 06/27/2025 4:58 AM CONTINUOUS MINER OPERATOR HELPER EKG 12-LEAD Routine 06/27/2025 4:39 AM CONTINUOUS MINER OPERATOR HELPER CBC WITH DIFFERENTIAL Routine 06/27/2025 1:51 AM CDT BASIC METABOLIC PANEL Routine 06/27/2025 1:51 AM CDT POC GLUCOSE Routine 06/27/2025 12:49 AM CDT POC GLUCOSE Routine 06/26/2025 8:16 PM CDT POC GLUCOSE Routine 06/26/2025 4:46 PM CDT POC GLUCOSE Routine 06/26/2025 11:46 AM CDT PROCALCITONIN Routine 06/26/2025 10:36 AM CDT POC GLUCOSE Routine 06/26/2025 7:29 AM CDT CBC WITH DIFFERENTIAL Routine 06/26/2025 5:37 AM CDT BASIC METABOLIC PANEL Routine 06/26/2025 5:37 AM CDT EKG 12-LEAD Routine 06/26/2025 4:51 AM CDT POC GLUCOSE Routine 06/26/2025 4:04 AM CDT POC GLUCOSE Routine 06/25/2025 11:27 PM CDT CTA CHEST W AND/OR WO CONTRAST Routine 06/25/2025 11:12 PM CDT POC GLUCOSE Routine 06/25/2025 8:20 PM CDT POC GLUCOSE Routine 06/25/2025 5:13 PM CDT POC GLUCOSE Routine 06/25/2025 11:28 AM CDT POC GLUCOSE Routine 06/25/2025 7:42 AM CDT EKG 12-LEAD Pending Discharge 06/25/2025 6:12 AM CDT POC GLUCOSE Routine 06/25/2025 5:40 AM CDT CBC WITH DIFFERENTIAL Routine 06/25/2025 4:57 AM CDT BASIC METABOLIC PANEL Routine 06/25/2025 4:57 AM CDT POC GLUCOSE Routine 06/25/2025 1:35 AM CDT POC GLUCOSE Routine 06/24/2025 8:09 PM CDT POC GLUCOSE Routine 06/24/2025 4:47 PM CDT BLOOD CULTURE Routine 06/24/2025 3:35 PM CDT UNFRACTIONATED HEPARIN ACTIVITY Timed Study 06/24/2025 3:35 PM CDT BLOOD CULTURE Routine 06/24/2025 3:35 PM CDT BLOOD CULTURE Routine 06/24/2025 1:59 PM CDT BLOOD CULTURE Routine 06/24/2025 1:59 PM CDT POC GLUCOSE Routine 06/24/2025 12:32 PM CDT XR VIDEO SWALLOW W SPEECH Routine 06/24/2025 11:47 AM CDT US VENOUS DOPPLER LEG BILATERAL Routine 06/24/2025 11:09 AM CDT US DOPPLER VENOUS ARM BILATERAL Routine 06/24/2025 11:03 AM CDT PULVERIZER MILL OPERATOR EVALUATION Routine 06/24/2025 8:39 AM CDT POC GLUCOSE Routine 06/24/2025 7:36 AM CDT EKG 12-LEAD Routine 06/24/2025 4:46 AM CDT POC GLUCOSE Routine 06/24/2025 4:13 AM CDT PERIPHERAL BLOOD SMEAR PATHOLOGY INTERP Routine 06/24/2025 3:38 AM CDT UNFRACTIONATED HEPARIN ACTIVITY Timed Study 06/24/2025 3:38 AM CDT CBC WITH DIFFERENTIAL Routine 06/24/2025 3:38 AM CDT BASIC METABOLIC PANEL Routine 06/24/2025 3:38 AM CDT POC GLUCOSE Routine 06/24/2025 12:03 AM CDT UNFRACTIONATED HEPARIN ACTIVITY Timed Study 06/23/2025 8:29 PM CDT POC GLUCOSE Routine 06/23/2025 8:28 PM CDT POC GLUCOSE Routine 06/23/2025 5:05 PM CDT UNFRACTIONATED HEPARIN ACTIVITY Stat 06/23/2025 1:38 PM CDT POC GLUCOSE Routine 06/23/2025 1:00 PM CDT UNFRACTIONATED HEPARIN ACTIVITY Timed Study 06/23/2025 10:41 AM CDT POC GLUCOSE Routine 06/23/2025 9:26 AM CDT EKG 12-LEAD Routine 06/23/2025 5:17 AM CDT POC GLUCOSE Routine 06/23/2025 4:48 AM CDT UNFRACTIONATED HEPARIN ACTIVITY Timed Study 06/23/2025 3:47 AM CDT CBC WITH DIFFERENTIAL Routine 06/23/2025 2:49 AM CDT PHOSPHORUS Routine 06/23/2025 2:49 AM CDT MAGNESIUM LEVEL Routine 06/23/2025 2:49 AM CDT COMPREHENSIVE METABOLIC PANEL Routine 06/23/2025 2:49 AM CDT POC GLUCOSE Routine 06/22/2025 11:17 PM CDT POC GLUCOSE Routine 06/22/2025 9:44 PM CDT PTT Routine 06/22/2025 6:33 PM CDT POC GLUCOSE Routine 06/22/2025 5:00 PM CDT POC GLUCOSE Routine 06/22/2025 12:23 PM CDT EKG 12-LEAD Routine 06/22/2025 11:48 AM CDT EKG 12-LEAD Stat 06/22/2025 11:45 AM CDT POC GLUCOSE Routine 06/22/2025 7:24 AM CDT XR ABDOMEN FOR FEEDING TUBE 1 VW Stat 06/22/2025 6:25 AM CDT EKG 12-LEAD Routine 06/22/2025 5:29 AM CDT POC GLUCOSE Routine 06/22/2025 4:32 AM CDT CBC WITH DIFFERENTIAL Routine 06/22/2025 4:30 AM CDT PHOSPHORUS Routine 06/22/2025 4:30 AM CDT MAGNESIUM LEVEL Routine 06/22/2025 4:30 AM CDT COMPREHENSIVE METABOLIC PANEL Routine 06/22/2025 4:30 AM CDT XR ABDOMEN FOR FEEDING TUBE 1 VW Stat 06/22/2025 4:06 AM CDT POC GLUCOSE Routine 06/21/2025 11:10 PM CDT POC GLUCOSE Routine 06/21/2025 7:11 PM CDT POC GLUCOSE Routine 06/21/2025 4:08 PM CDT POC GLUCOSE Routine 06/21/2025 11:13 AM CDT EKG 12-LEAD Stat 06/21/2025 8:10 AM CDT POC GLUCOSE Routine 06/21/2025 7:57 AM CDT XR CHEST PA OR AP 1 VW Routine 5:23 AM CDT CBC WITH DIFFERENTIAL Routine 06/21/2025 3:02 AM CDT TSH Routine 06/21/2025 3:02 AM CDT PHOSPHORUS Routine 06/21/2025 3:02 AM CDT MAGNESIUM LEVEL Routine 06/21/2025 3:02 AM CDT COMPREHENSIVE METABOLIC PANEL Routine 06/21/2025 3:02 AM CDT POC GLUCOSE Routine 06/20/2025 6:57 PM CDT POC GLUCOSE Routine 06/20/2025 3:49 PM CDT POC GLUCOSE Routine 06/20/2025 12:25 PM CDT XR CHEST PA OR AP 1 VW Routine 8:36 AM CDT POC GLUCOSE Routine 06/20/2025 7:28 AM CDT POC GLUCOSE Routine 06/20/2025 3:22 AM CDT CBC WITH DIFFERENTIAL Routine 06/20/2025 3:18 AM CDT PTT Routine 06/20/2025 3:18 AM CDT PHOSPHORUS Routine 06/20/2025 3:18 AM CDT MAGNESIUM LEVEL Routine 06/20/2025 3:18 AM CDT COMPREHENSIVE METABOLIC PANEL Routine 06/20/2025 3:18 AM CDT POC GLUCOSE Routine 06/20/2025 12:11 AM CDT POC GLUCOSE Routine 06/19/2025 8:50 PM CDT XR ABDOMEN FOR FEEDING TUBE 1 VW Stat 06/19/2025 8:45 PM CDT POC GLUCOSE Routine 06/19/2025 5:26 PM CDT POC GLUCOSE Routine 06/19/2025 12:34 PM CDT POC ACTIVATED CLOTTING TIME Routine 06/19/2025 10:49 AM CDT EXTUBATION Routine 06/19/2025 10:44 AM CDT POC GLUCOSE Routine 06/19/2025 9:12 AM CDT XR CHEST PA OR AP 1 VW Routine 5:56 AM CDT CBC WITH DIFFERENTIAL Routine 06/19/2025 4:08 AM CDT PHOSPHORUS Routine 06/19/2025 4:08 AM CDT MAGNESIUM LEVEL Routine 06/19/2025 4:08 AM CDT COMPREHENSIVE METABOLIC PANEL Routine 06/19/2025 4:08 AM CDT PTT Routine 06/19/2025 1:02 AM CDT POC GLUCOSE Routine 06/18/2025 11:42 PM CDT POC GLUCOSE Routine 06/18/2025 8:00 PM CDT PTT Routine 06/18/2025 5:02 PM CDT POTASSIUM LEVEL Routine 06/18/2025 5:02 PM CDT POC GLUCOSE Routine 06/18/2025 4:56 PM CDT SPUTUM CULTURE WITH GRAM STAIN Routine 06/18/2025 12:11 PM CDT POC GLUCOSE Routine 06/18/2025 11:17 AM CDT XR CHEST PA OR AP 1 VW Routine 10:16 AM CDT PTT Routine 06/18/2025 8:54 AM CDT POC LACTIC ACID Routine 06/18/2025 7:15 AM CDT BLOOD GAS ARTERIAL Routine 06/18/2025 7: 15 AM CDT POC GLUCOSE Routine 06/18/2025 7:14 AM CDT CBC WITH DIFFERENTIAL Routine 06/18/2025 3:36 AM CDT PHOSPHORUS Routine 06/18/2025 3:36 AM CDT MAGNESIUM LEVEL Routine 06/18/2025 3:36 AM CDT HAPTOGLOBIN Routine 06/18/2025 3:36 AM CDT COMPREHENSIVE METABOLIC PANEL Routine 06/18/2025 3:36 AM CDT POC GLUCOSE Routine 06/17/2025 11:04 PM CDT POC LACTIC ACID Routine 06/17/2025 11:01 PM CDT BLOOD GAS ARTERIAL Routine 06/17/2025 11:01 PM CDT POC GLUCOSE Routine 06/17/2025 7:15 PM CDT POC GLUCOSE Routine 06/17/2025 5:22 PM CDT BASIC METABOLIC PANEL Routine 06/17/2025 5:20 PM CDT POC LACTIC ACID Routine 06/17/2025 5:19 PM CDT BLOOD GAS ARTERIAL Routine 06/17/2025 5: 19 PM CDT POC LACTIC ACID Routine 06/17/2025 3:38 PM CDT BLOOD GAS,(INCL. H+H, LYTES, GLUC) Routine 06/17/2025 3:38 PM CDT EXTRACORPOREAL CIRCULATION MEMBRANE OXYGENATION REMOVAL 06/17/2025 3:31 PM CDT POC GLUCOSE Routine 06/17/2025 12:43 PM CDT XR CHEST PA OR AP 1 VW Stat 10:29 AM CDT XR ABDOMEN 1 VW Stat 06/17/2025 10:29 AM CDT PTT Timed Study 06/17/2025 9:55 AM CDT POC GLUCOSE Routine 06/17/2025 9:53 AM CDT POC LACTIC ACID Routine 06/17/2025 6:05 AM CDT BLOOD GAS ARTERIAL Routine 06/17/2025 6: 05 AM CDT XR CHEST PA OR AP 1 VW Routine 4:46 AM CDT CBC WITH DIFFERENTIAL Routine 06/17/2025 3:14 AM CDT PTT Timed Study 06/17/2025 3:14 AM CDT PHOSPHORUS Routine 06/17/2025 3:14 AM CDT MAGNESIUM LEVEL Routine 06/17/2025 3:14 AM CDT HAPTOGLOBIN Routine 06/17/2025 3:14 AM CDT COMPREHENSIVE METABOLIC PANEL Routine 06/17/2025 3:14 AM CDT POC GLUCOSE Routine 06/17/2025 3:13 AM CDT POC GLUCOSE Routine 06/16/2025 11:10 PM CDT POC LACTIC ACID Routine 06/16/2025 11:08 PM CDT BLOOD GAS ARTERIAL Routine 06/16/2025 11:08 PM CDT PTT Timed Study 06/16/2025 8:26 PM CDT POC GLUCOSE Routine 06/16/2025 8:25 PM CDT POC GLUCOSE Routine 06/16/2025 4:59 PM CDT POC LACTIC ACID Routine 06/16/2025 3:06 PM CDT BLOOD GAS ARTERIAL Routine 06/16/2025 3: 06 PM CDT ECHO LIMITED WO DOPPLER Routine 06/16/2025 2:10 PM CDT PTT Routine 06/16/2025 1:30 PM CDT RESPIRATORY THERAPY COMMUNICATION Routine 06/16/2025 12:23 PM CDT POC GLUCOSE Routine 06/16/2025 12:22 PM CDT TROPONIN Routine 06/16/2025 12:20 PM CDT POC GLUCOSE Routine 06/16/2025 8:56 AM CDT POC LACTIC ACID Routine 06/16/2025 6:55 AM CDT BLOOD GAS ARTERIAL Routine 06/16/2025 6: 55 AM CDT PTT Routine 06/16/2025 6:54 AM CDT OXIMETRY Routine 06/16/2025 4:49 AM CDT XR CHEST PA OR AP 1 VW Routine 4:44 AM CDT POC LACTIC ACID Routine 06/16/2025 3:10 AM CDT BLOOD GAS ARTERIAL Routine 06/16/2025 3: 10 AM CDT CBC WITH DIFFERENTIAL Routine 06/16/2025 3:09 AM CDT TROPONIN Routine 06/16/2025 3:09 AM CDT PHOSPHORUS Routine 06/16/2025 3:09 AM CDT MAGNESIUM LEVEL Routine 06/16/2025 3:09 AM CDT HAPTOGLOBIN Routine 06/16/2025 3:09 AM CDT COMPREHENSIVE METABOLIC PANEL Routine 06/16/2025 3:09 AM CDT PTT Routine 06/16/2025 12:35 AM CDT POC LACTIC ACID Routine 06/16/2025 12:07 AM CDT BLOOD GAS ARTERIAL Routine 06/16/2025 12:07 AM CDT TROPONIN Routine 06/15/2025 7:48 PM CDT BASIC METABOLIC PANEL Routine 06/15/2025 7:48 PM CDT POC LACTIC ACID Routine 06/15/2025 7:39 PM CDT BLOOD GAS ARTERIAL Routine 06/15/2025 7: 39 PM CDT POC GLUCOSE Routine 06/15/2025 7:37 PM CDT TRANSFUSE PACKED RED BLOOD CELLS Routine 06/15/2025 6:06 PM CDT PREPARE RED BLOOD CELLS Routine 06/15/2025 5:31 PM CDT PREPARE RED BLOOD CELLS Routine 06/15/2025 5:31 PM CDT PREPARE RED BLOOD CELLS Routine 06/15/2025 5:31 PM CDT PREPARE RED BLOOD CELLS Routine 06/15/2025 5:31 PM CDT PREPARE RED BLOOD CELLS Routine 06/15/2025 5:30 PM CDT POC LACTIC ACID Routine 06/15/2025 5:14 PM CDT BLOOD GAS ARTERIAL Routine 06/15/2025 5: 14 PM CDT CBC WITH DIFFERENTIAL Routine 06/15/2025 5:10 PM CDT PTT Routine 06/15/2025 5:10 PM CDT POC GLUCOSE Routine 06/15/2025 5:09 PM CDT POC LACTIC ACID Routine 06/15/2025 1:16 PM CDT BLOOD GAS ARTERIAL Routine 06/15/2025 1: 16 PM CDT POC GLUCOSE Routine 06/15/2025 11:19 AM CDT PTT Routine 06/15/2025 11:14 AM CDT POC LACTIC ACID Routine 06/15/2025 9:50 AM CDT BLOOD GAS ARTERIAL Routine 06/15/2025 9: 50 AM CDT POC GLUCOSE Routine 06/15/2025 9:44 AM CDT POC GLUCOSE Routine 06/15/2025 7:13 AM CDT OXIMETRY Routine 06/15/2025 5:33 AM CDT POC LACTIC ACID Routine 06/15/2025 5:20 AM CDT BLOOD GAS ARTERIAL Routine 06/15/2025 5: 20 AM CDT POC GLUCOSE Routine 06/15/2025 5:19 AM CDT POC GLUCOSE Routine 06/15/2025 4:05 AM CDT CBC WITH DIFFERENTIAL Routine 06/15/2025 4:03 AM CDT PTT Routine 06/15/2025 4:03 AM CDT TROPONIN Timed Study 06/15/2025 4:03 AM CDT PHOSPHORUS Routine 06/15/2025 4:03 AM CDT MAGNESIUM LEVEL Routine 06/15/2025 4:03 AM CDT LACTATE DEHYDROGENASE Routine 06/15/2025 4:03 AM CDT HAPTOGLOBIN Routine 06/15/2025 4:03 AM CDT COMPREHENSIVE METABOLIC PANEL Routine 06/15/2025 4:03 AM CDT XR CHEST PA OR AP 1 VW Routine 3:57 AM CDT POC GLUCOSE Routine 06/15/2025 2:11 AM CDT EKG 12-LEAD Stat 06/15/2025 12:32 AM CDT POC LACTIC ACID Routine 06/15/2025 12:05 AM CDT BLOOD GAS ARTERIAL Routine 06/15/2025 12:05 AM CDT POC GLUCOSE Routine 06/15/2025 12:03 AM CDT POC GLUCOSE Routine 06/14/2025 10:02 PM CDT POC LACTIC ACID Routine 06/14/2025 8:06 PM CDT BLOOD GAS ARTERIAL Routine 06/14/2025 8: 06 PM CDT PTT Routine 06/14/2025 8:05 PM CDT MAGNESIUM LEVEL Routine 06/14/2025 8:05 PM CDT BASIC METABOLIC PANEL Routine 06/14/2025 8:05 PM CDT POC GLUCOSE Routine 06/14/2025 8:04 PM CDT POC GLUCOSE Routine 06/14/2025 7:13 PM CDT POC GLUCOSE Routine 06/14/2025 6:09 PM CDT POC LACTIC ACID Routine 06/14/2025 6:08 PM CDT BLOOD GAS ARTERIAL Routine 06/14/2025 6: 08 PM CDT POC GLUCOSE Routine 06/14/2025 5:18 PM CDT POC GLUCOSE Routine 06/14/2025 3:30 PM CDT POC GLUCOSE Routine 06/14/2025 2:11 PM CDT POC LACTIC ACID Routine 06/14/2025 1:40 PM CDT BLOOD GAS ARTERIAL Routine 06/14/2025 1: 40 PM CDT POC GLUCOSE Routine 06/14/2025 1:11 PM CDT PTT Routine 06/14/2025 1:08 PM CDT EKG 12-LEAD Stat 06/14/2025 12:59 PM CDT POC GLUCOSE Routine 06/14/2025 12:22 PM CDT POC GLUCOSE Routine 06/14/2025 11:30 AM CDT TROPONIN Routine 06/14/2025 11:23 AM CDT LIPID PANEL Routine 06/14/2025 11:23 AM CDT VANCOMYCIN LEVEL TROUGH Timed Study 06/14/2025 10:13 AM CDT POC GLUCOSE Routine 06/14/2025 10:04 AM CDT ECHO LIMITED WO DOPPLER Routine 06/14/2025 9:33 AM CDT POC GLUCOSE Routine 06/14/2025 9:16 AM CDT TYPE AND SCREEN Routine 06/14/2025 8:44 AM CDT POC GLUCOSE Routine 06/14/2025 8:07 AM CDT TROPONIN Stat 06/14/2025 7:30 AM CDT POC LACTIC ACID Routine 06/14/2025 7:20 AM CDT BLOOD GAS ARTERIAL Routine 06/14/2025 7: 20 AM CDT POC GLUCOSE Routine 06/14/2025 7:18 AM CDT POC GLUCOSE Routine 06/14/2025 6:11 AM CDT POC GLUCOSE Routine 06/14/2025 5:12 AM CDT XR CHEST PA OR AP 1 VW Routine 4:33 AM CDT POC GLUCOSE Routine 06/14/2025 4:04 AM CDT EKG 12-LEAD Stat 06/14/2025 3:36 AM CDT CBC WITH DIFFERENTIAL Routine 06/14/2025 3:08 AM CDT PHOSPHORUS Routine 06/14/2025 3:08 AM CDT MAGNESIUM LEVEL Routine 06/14/2025 3:08 AM CDT LACTATE DEHYDROGENASE Routine 06/14/2025 3:08 AM CDT HEMOGLOBIN A1C Routine 06/14/2025 3:08 AM CDT HAPTOGLOBIN Routine 06/14/2025 3:08 AM CDT COMPREHENSIVE METABOLIC PANEL Routine 06/14/2025 3:08 AM CDT POC GLUCOSE Routine 06/14/2025 3:07 AM CDT POC LACTIC ACID Routine 06/14/2025 3:05 AM CDT BLOOD GAS ARTERIAL Routine 06/14/2025 3: 05 AM CDT POC GLUCOSE Routine 06/14/2025 2:11 AM CDT POC GLUCOSE Routine 06/14/2025 1:25 AM CDT POC GLUCOSE Routine 06/14/2025 12:04 AM CDT CBC WITH DIFFERENTIAL Timed Study 06/13/2025 11:34 PM CDT TROPONIN Routine 06/13/2025 11:34 PM CDT POC LACTIC ACID Routine 06/13/2025 11:07 PM CDT BLOOD GAS ARTERIAL Routine 06/13/2025 11:07 PM CDT POC GLUCOSE Routine 06/13/2025 11:05 PM CDT POC GLUCOSE Routine 06/13/2025 10:06 PM CDT POC GLUCOSE Routine 06/13/2025 9:17 PM CDT POC GLUCOSE Routine 06/13/2025 8:10 PM CDT PTT Routine 06/13/2025 8:08 PM CDT POC GLUCOSE Routine 06/13/2025 7:22 PM CDT POC LACTIC ACID Routine 06/13/2025 7:20 PM CDT BLOOD GAS ARTERIAL Routine 06/13/2025 7: 20 PM CDT XR CHEST PA OR AP 1 VW Stat 5:57 PM CDT PNEUMONIA PATHOGEN PCR PANEL Timed Study 06/13/2025 5:50 PM CDT RESPIRATORY CULTURE WITH GRAM STAIN Stat 06/13/2025 5:50 PM CDT POC GLUCOSE Routine 06/13/2025 5:48 PM CDT OXIMETRY Routine 06/13/2025 5:46 PM CDT XR CHEST PA OR AP 1 VW Routine 4:51 PM CDT POC GLUCOSE Routine 06/13/2025 4:43 PM CDT TROPONIN Routine 06/13/2025 4:41 PM CDT PTT Routine 06/13/2025 3:36 PM CDT POC LACTIC ACID Routine 06/13/2025 3:17 PM CDT BLOOD GAS ARTERIAL Routine 06/13/2025 3: 17 PM CDT POC GLUCOSE Routine 06/13/2025 3:15 PM CDT POC GLUCOSE Routine 06/13/2025 2:57 PM CDT POC GLUCOSE Routine 06/13/2025 2:54 PM CDT POC GLUCOSE Routine 06/13/2025 2:09 PM CDT EKG 12-LEAD Routine 06/13/2025 1:04 PM CDT POC GLUCOSE Routine 06/13/2025 1:02 PM CDT PTT Timed Study 06/13/2025 12:58 PM CDT POC LACTIC ACID Routine 06/13/2025 11:52 AM CDT BLOOD GAS ARTERIAL Routine 06/13/2025 11:52 AM CDT POC GLUCOSE Routine 06/13/2025 11:49 AM CDT POC LACTIC ACID Routine 06/13/2025 11:42 AM CDT BLOOD GAS ARTERIAL Routine 06/13/2025 11:42 AM CDT POC LACTIC ACID Routine 06/13/2025 11:37 AM CDT BLOOD GAS ARTERIAL Routine 06/13/2025 11:37 AM CDT IVUS-CORONARY INTRAVASCULAR Routine 06/13/2025 10:58 AM CDT PERCUTANEOUS CORONARY INTERVENTION Routine 06/13/2025 10:58 AM CDT INTRA AORTIC BALLOON PUMP INSERTION Routine 06/13/2025 10:58 AM CDT INTRA AORTIC BALLOON PUMP REMOVAL Routine 06/13/2025 10:58 AM CDT LEFT HEART CATH Routine 06/13/2025 10:58 AM CDT POC ACTIVATED CLOTTING TIME Routine 06/13/2025 10:36 AM CDT POC ACTIVATED CLOTTING TIME Routine 06/13/2025 10:22 AM CDT POC LACTIC ACID Routine 06/13/2025 9:03 AM CDT BLOOD GAS ARTERIAL Routine 06/13/2025 9: 03 AM CDT POC LACTIC ACID Routine 06/13/2025 8:56 AM CDT BLOOD GAS ARTERIAL Routine 06/13/2025 8: 56 AM CDT TROPONIN Routine 06/13/2025 8:53 AM CDT POC GLUCOSE Routine 06/13/2025 8:51 AM CDT EKG 12-LEAD Routine 06/13/2025 8:03 AM CDT POC LACTIC ACID Routine 06/13/2025 7:17 AM CDT BLOOD GAS ARTERIAL Routine 06/13/2025 7: 17 AM CDT POC GLUCOSE Routine 06/13/2025 7:14 AM CDT POC GLUCOSE Routine 06/13/2025 6:10 AM CDT PNEUMONIA PATHOGEN PCR PANEL Timed Study 06/13/2025 5:30 AM CDT SPUTUM CULTURE WITH GRAM STAIN Routine 06/13/2025 5:30 AM CDT XR CHEST PA OR AP 1 VW Routine 5:22 AM CDT POC GLUCOSE Routine 06/13/2025 5:17 AM CDT EKG 12-LEAD Routine 06/13/2025 4:56 AM CDT POC GLUCOSE Routine 06/13/2025 4:08 AM CDT UNFRACTIONATED HEPARIN ACTIVITY Timed Study 06/13/2025 4:04 AM CDT CBC WITH DIFFERENTIAL Routine 06/13/2025 4:04 AM CDT PHOSPHORUS Routine 06/13/2025 4:04 AM CDT MAGNESIUM LEVEL Routine 06/13/2025 4:04 AM CDT LACTATE DEHYDROGENASE Routine 06/13/2025 4:04 AM CDT HAPTOGLOBIN Routine 06/13/2025 4:04 AM CDT COMPREHENSIVE METABOLIC PANEL Routine 06/13/2025 4:04 AM CDT POC LACTIC ACID Routine 06/13/2025 3:08 AM CDT BLOOD GAS ARTERIAL Routine 06/13/2025 3: 08 AM CDT POC GLUCOSE Routine 06/13/2025 3:07 AM CDT POC GLUCOSE Routine 06/13/2025 2:14 AM CDT POC GLUCOSE Routine 06/13/2025 1:06 AM CDT POC GLUCOSE Routine 06/13/2025 12:14 AM CDT POC LACTIC ACID Routine 06/12/2025 11:09 PM CDT BLOOD GAS ARTERIAL Routine 06/12/2025 11:09 PM CDT POC GLUCOSE Routine 06/12/2025 11:07 PM CDT POC GLUCOSE Routine 06/12/2025 10:13 PM CDT EKG 12-LEAD Stat 06/12/2025 9:57 PM CDT UNFRACTIONATED HEPARIN ACTIVITY Timed Study 06/12/2025 9:27 PM CDT POC GLUCOSE Routine 06/12/2025 9:09 PM CDT INSERT MIDLINE IV Stat 06/12/2025 8:4 9 PM CDT POC GLUCOSE Routine 06/12/2025 8:04 PM CDT POC LACTIC ACID Routine 06/12/2025 7:21 PM CDT BLOOD GAS ARTERIAL Routine 06/12/2025 7: 21 PM CDT POC GLUCOSE Routine 06/12/2025 7:09 PM CDT BLOOD CULTURE Routine 06/12/2025 6:53 PM CDT BLOOD CULTURE Routine 06/12/2025 6:53 PM CDT BLOOD CULTURE Routine 06/12/2025 6:49 PM CDT BLOOD CULTURE Routine 06/12/2025 6:49 PM CDT POC GLUCOSE Routine 06/12/2025 5:41 PM CDT CBC WITHOUT DIFFERENTIAL Timed Study 06/12/2025 5:36 PM CDT TROPONIN Routine 06/12/2025 5:36 PM CDT PHOSPHORUS Timed Study 06/12/2025 5:36 PM CDT MAGNESIUM LEVEL Timed Study 06/12/2025 5:36 PM CDT HAPTOGLOBIN Routine 06/12/2025 5:36 PM CDT COMPREHENSIVE METABOLIC PANEL Timed Study 06/12/2025 5:36 PM CDT INSERT MIDLINE IV Routine 06/12/2025 5:0 5 PM CDT POC GLUCOSE Routine 06/12/2025 4:23 PM CDT VERIFICATION BLOOD GROUP Stat 06/12/2025 4:20 PM CDT Laboratory test POC LACTIC ACID Routine 06/12/2025 3:18 PM CDT BLOOD GAS ARTERIAL Routine 06/12/2025 3: 18 PM CDT POC GLUCOSE Routine 06/12/2025 2:46 PM CDT POTASSIUM LEVEL Routine 06/12/2025 2:45 PM CDT LACTATE DEHYDROGENASE Routine 06/12/2025 2:45 PM CDT HEPATIC FUNCTION PANEL Routine 2:45 PM CDT UNFRACTIONATED HEPARIN ACTIVITY Timed Study 06/12/2025 1:42 PM CDT MAGNESIUM LEVEL Routine 06/12/2025 1:42 PM CDT BASIC METABOLIC PANEL Routine 06/12/2025 1:42 PM CDT POC GLUCOSE Routine 06/12/2025 12:48 PM CDT POC LACTIC ACID Routine 06/12/2025 12:23 PM CDT BLOOD GAS ARTERIAL Routine 06/12/2025 12:23 PM CDT XR PELVIS 1 OR 2 VW Stat 06/12/2025 9 :44 AM CDT POTASSIUM LEVEL Routine 06/12/2025 9:41 AM CDT POC LACTIC ACID Routine 06/12/2025 9:37 AM CDT BLOOD GAS ARTERIAL Routine 06/12/2025 9: 37 AM CDT XR CHEST PA OR AP 1 VW Stat 9:17 AM CDT EKG 12-LEAD Stat 06/12/2025 9:01 AM CDT POC GLUCOSE Routine 06/12/2025 7:35 AM CDT POC LACTIC ACID Routine 06/12/2025 7:33 AM CDT BLOOD GAS ARTERIAL Routine 06/12/2025 7: 33 AM CDT ECHO COMPLETE Stat 06/12/2025 6:25 AM CDT EXTRA TUBE (URINE ALVES) Routine 06/12/2025 6:19 AM CDT DRUG SCREEN, URINE Routine 06/12/2025 6: 19 AM CDT URINALYSIS W/REFLEX MICROSCOPIC Routine 06/12/2025 6:19 AM CDT XR ABDOMEN FOR FEEDING TUBE 1 VW Stat 06/12/2025 6:17 AM CDT XR CHEST PA OR AP 1 VW Stat 6:16 AM CDT EKG 12-LEAD Routine 06/12/2025 6:05 AM CDT LACTIC ACID Stat 06/12/2025 5:42 AM CDT CBC WITH DIFFERENTIAL Stat 06/12/2025 5:42 AM CDT KETONES/BETA HYDROXYBUTYRATE Routine 06/12/2025 5:42 AM CDT PTT Stat 06/12/2025 5:42 AM CDT TYPE AND SCREEN Routine 06/12/2025 5:42 AM CDT PHOSPHORUS Routine 06/12/2025 5:42 AM CDT MAGNESIUM LEVEL Routine 06/12/2025 5:42 AM CDT COMPREHENSIVE METABOLIC PANEL Routine 06/12/2025 5:42 AM CDT POC LACTIC ACID Routine 06/12/2025 5:29 AM CDT BLOOD GAS,(INCL. H+H, LYTES, GLUC) Routine 06/12/2025 5:29 AM CDT POC LACTIC ACID Routine 06/12/2025 5:21 AM CDT BLOOD GAS,(INCL. H+H, LYTES, GLUC) Routine 06/12/2025 5:21 AM CDT CASE CANCELLED 06/12/2025 4:15 AM CDT N/A POC ACTIVATED CLOTTING TIME Stat 06/12/2025 3:22 AM CDT INTRA AORTIC BALLOON PUMP INSERTION Stat 06/12/2025 3:16 AM CDT PACEMAKER TEMPORARY Stat 06/12/2025 3 :16 AM CDT RIGHT HEART CATH Stat 06/12/2025 3:16 AM CDT PERCUTANEOUS CORONARY INTERVENTION Stat 06/12/2025 3:16 AM CDT LEFT HEART CATH Stat 06/12/2025 3:16 AM CDT POC ACTIVATED CLOTTING TIME Stat 06/12/2025 3:09 AM CDT POC ACTIVATED CLOTTING TIME Stat 06/12/2025 2:51 AM CDT POC ACTIVATED CLOTTING TIME Stat 06/12/2025 2:40 AM CDT documented in this encounter Results * TELEMETRY REPORT (06/28/2025 3:38 AM CONTINUOUS MINER OPERATOR HELPER) us Provider Scanning ECG ORDERABLES Final Result * ECHO LIMITED W CONTRAST (06/27/2025 10:50 AM CONTINUOUS MINER OPERATOR HELPER) EJECTION FRACTION 44 INTERFACE SYSTEM 06/27/2025 9:13 AM CONTINUOUS MINER OPERATOR HELPER Narrative INTERFACE SYSTEM - 06/27/2025 11:25 AM [facility] Cardiovascular Services Echocardiography Laboratory [facility] [facility] [place] [address] Limited Transthoracic Echocardiography Patient: Noemi Study ID: ECHO LIMITED Gigi Parnell Gender: M : 1960 Age: 65 Room: [facility] 06/27/2025 Pt Inpatient Date: Status: Study 09:13:06 AM CSN #: [id number] Time: Ordering:Anyi López Mail Officer: GREG Indications and History: NC/ACS; Suspected complication of NC; Other- see comments. VT/VF. Pt discharge today needs new EF for life vest. Summary and Conclusion: - Study data: A limited echo was performed - Left ventricle: The cavity size is at the upper limits of normal. Wall thickness is normal. The lateral wall appears hypokinetic. Global systolic function is mildly reduced. The estimated ejection fraction is 40-45%. For Epic reporting: the left ventricular ejection fraction is 44% by biplane method of disks. Regional wall motion difficult to determine despite echo contrast. The longitudinal strain is -9.5% (Normal range is -18 to -25). - Right ventricle: Not well visualized. - Pericardium: A trivial pericardial effusion is identified. Comparison: Compared to the previous study, LV systolic functionhas not changed. Prior Study Date: 06/24/2025. Procedure information: Comparison is made to the study of 06/16/2025. Study status: STAT. Procedure: A transthoracic echocardiogram was performed. Image quality was adequate. Scanning was performed from the parasternal, apical, and subcostal acoustic windows. Intravenous contrast (Definity) was administered. There were no contrast reactions. A limited echo was performed Study components: M-mode, limited 2D, limited spectral Doppler, and color Doppler. Height: 172.7cm. Height: 68in. Weight: 86.9kg. Weight: 191.6lb. BMI: 29.1kg/m^2. BSA: 2.06m^2. Blood pressure: 130/62 Study date: 06/27/2025. Study time: 09:13 AM. Location: [facility]. Cardiac Anatomy: LEFT VENTRICLE: The cavity size is at the upper limits of normal. Wall thickness is normal. Global systolic function is mildly reduced. The estimated ejection fraction is 40-45%. For Epic reporting: the left ventricular ejection fraction is 44% by biplane method of disks. Regional wall motion difficult to determine despite echo contrast. The longitudinal strain is -9.5% (Normal range is -18 to -25). RIGHT VENTRICLE: Not well visualized. PERICARDIUM: A trivial pericardial effusion is identified. Measurements Left ventricle Value Left ventricle continued Value GLS, 2D -9.5 % EDV, 1-p A4C 125 ml ESD, LAX 4.3 cm ESV, 1-p A4C 68 ml ESD/bsa, LAX 2.1 cm/m^2 EF, 1-p A4C 46 % FS, LAX 22 % SV, 1-p A4C 88 ml FS, LAX chord 22 % EDV/bsa, 1-p A4C 61 ml/m^2 ESD major ax, A4C 6.7 cm ESV/bsa, 1-p A4C 33 ml/m^2 ESD/bsa major ax, A4C 3.2 cm/m^2 SV/bsa, 1-p A4C 43 ml/m^2 BRENT minor ax, A4C 6.7 cm EDV, 2-p 138 ml BRENT/bsa minor ax, A4C 3.2 cm/m^2 ESV, 2-p 77 ml TORSTEN, A4C 35.8 cm^2 EF, 2-p 44 % GERA, A4C 23.2 cm^2 SV, 2-p 61 ml FAC, A4C 35 % EDV/bsa, 2-p 67 ml/m^2 BRENT major ax, A2C 8.4 cm ESV/bsa, 2-p 37 ml/m^2 BRENT/bsa major ax, A2C 4.1 cm/m^2 SV/bsa, 2-p 28.5 ml/m^2 TORSTEN, A2C 39.2 cm^2 EDV, MM Teich. 150 ml GERA, A2C 26.3 cm^2 EF, MM Teich. 43 % FAC, A2C 33 % EDV/bsa, MM Teich. 73 ml/m^2 IVS, ED 1.1 cm EF, MM on 2D Teich. 43 % PW, ED 1.1 cm IVS/PW, ED 1 Right ventricle Value EDV 150 ml BRENT, LAX 2.9 cm ESV 85 ml BRENT 2.9 cm EF 43 % EDV/bsa 73 ml/m^2 Left atrium Value ESV/bsa 41 ml/m^2 AP dim, ES 4.8 cm EDV, 1-p A2C 152 ml AP dim index, ES 2.3 cm/m^2 ESV, 1-p A2C 68 ml EF, 1-p A2C 45 % Mitral valve Value SV, 1-p A2C 65 ml Vena contracta width 2.9 cm EDV/bsa, 1-p A2C 74 ml/m^2 ESV/bsa, 1-p A2C 33 ml/m^2 Other Value SV/bsa, 1-p A2C 31.5 ml/m^2 Legend: (L) and (H) levi values outside specified reference range. [facility] are accredited with the Intersocietal Accreditation Commission - Echocardiography. Prepared and Electronically Authenticated Laurent Feng Confirmed 06/27/2025 11:25 Procedure Note Laurent Feng MD - 06/27/2025 [facility] Cardiovascular Services Echocardiography Laboratory [address] [place] [id number] Limited Transthoracic Echocardiography Patient: Noemi Study ID: ECHO LIMITED PREETI Parnell Gender: M : 1960 Age: 65 Room: [facility] Study 06/27/2025 Pt Inpatient Date: Status: Study 09:13:06 AM CSN #: [id number] Time: Ordering:Anyi López Mail Officer: GREG Indications and History: NC/ACS; Suspected complication of NC; Other-see comments. VT/VF. Pt discharge today needs new EF for life vest. Summary and Conclusion: - Study data: A limited echo was performed - Left ventricle: The cavity size is at the upper limits of normal. Wall thickness is normal. The lateral wall appears hypokinetic. Globalsystolic function is mildly reduced. The estimated ejection fraction is 40-45%.For Epic reporting: the left ventricular ejection fraction is 44% bybiplane method of disks. Regional wall motion difficult to determine despiteecho contrast. The longitudinal strain is -9.5% (Normal range is -18 to-25). - Right ventricle: Not well visualized. - Pericardium: A trivial pericardial effusion is identified. Comparison: Compared to the previous study, LV systolic functionhas not changed. Prior Study Date: 06/24/2025. Procedure information: Comparison is made to the study of 06/16/2025.Study status: STAT. Procedure: A transthoracic echocardiogram wasperformed. Image quality was adequate. Scanning was performed from the parasternal, apical, and subcostal acoustic windows. Intravenous contrast (Definity)was administered. There were no contrast reactions. A limited echowas performed Study components: M-mode, limited 2D, limited spectral Doppler,and color Doppler. Height: 172.7cm. Height: 68in. Weight: 86.9kg.Weight: 191.6lb. BMI: 29.1kg/m^2. BSA: 2.06m^2. Blood pressure:130/62 Study date: 06/27/2025. Study time: 09:13 AM. Location: Bedside. Cardiac Anatomy: LEFT VENTRICLE: The cavity size is at the upper limits of normal. Wall thickness is normal. Global systolic function is mildly reduced. Theestimated ejection fraction is 40-45%. For Epic reporting: the left ventricularejection fraction is 44% by biplane method of disks. Regional wall motion difficultto determine despite echo contrast. The longitudinal strain is -9.5%(Normal range is -18 to -25). RIGHT VENTRICLE: Not well visualized. PERICARDIUM: A trivial pericardial effusion is identified. Measurements Left ventricle Value Left ventricle continued Value GLS, 2D -9.5 % EDV, 1-p A4C 125 ml ESD, LAX 4.3 cm ESV, 1-p A4C 68 ml ESD/bsa, LAX 2.1 cm/m^2 EF, 1-p A4C 46 % FS, LAX 22 % SV, 1-p A4C 88 ml FS, LAX chord 22 % EDV/bsa, 1-p A4C 61ml/m^2 ESD major ax, A4C 6.7 cm ESV/bsa, 1-p A4C 33ml/m^2 ESD/bsa major ax, A4C 3.2 cm/m^2 SV/bsa, 1-p A4C 43ml/m^2 BRENT minor ax, A4C 6.7 cm EDV, 2-p 138 ml BRENT/bsa minor ax, A4C 3.2 cm/m^2 ESV, 2-p 77 ml TORSTEN, A4C 35.8 cm^2 EF, 2-p 44 % GERA, A4C 23.2 cm^2 SV, 2-p 61 ml FAC, A4C 35 % EDV/bsa, 2-p 67ml/m^2 BRENT major ax, A2C 8.4 cm ESV/bsa, 2-p 37ml/m^2 BRENT/bsa major ax, A2C 4.1 cm/m^2 SV/bsa, 2-p 28.5ml/m^2 TORSTEN, A2C 39.2 cm^2 EDV, MM Teich. 150 ml GERA, A2C 26.3 cm^2 EF, MM Teich. 43 % FAC, A2C 33 % EDV/bsa, MM Teich. 73ml/m^2 IVS, ED 1.1 cm EF, MM on 2D Teich. 43 % PW, ED 1.1 cm IVS/PW, ED 1 Right ventricle Value EDV 150 ml BRENT, LAX 2.9 cm ESV 85 ml BRENT 2.9 cm EF 43 % EDV/bsa 73 ml/m^2 Left atrium Value ESV/bsa 41 ml/m^2 AP dim, ES 4.8 cm EDV, 1-p A2C 152 ml AP dim index, ES 2.3cm/m^2 ESV, 1-p A2C 68 ml EF, 1-p A2C 45 % Mitral valve Value SV, 1-p A2C 65 ml Vena contracta width 2.9 cm EDV/bsa, 1-p A2C 74 ml/m^2 ESV/bsa, 1-p A2C 33 ml/m^2 Other Value SV/bsa, 1-p A2C 31.5 ml/m^2 Legend: (L) and (H) levi values outside specified reference range. [facility] are accredited with the[facility]societal Accreditation Commission - Echocardiography. Prepared and Electronically Authenticated Laurent Feng Confirmed 06/27/2025 11:25 us Anyi López [facility] US ORDERABLES Final Resu lt INTERFACE SYSTEM Refer to clinic/hospital department * (ABNORMAL) POC GLUCOSE (06/27/2025 7:09 AM CONTINUOUS MINER OPERATOR HELPER) Pathologist [facility] GLUCOSE POC 143(H) 74 - 99 mg/dL 06/27/2025 7:09 AM CONTINUOUS MINER OPERATOR HELPER [facility] SPECIMEN SOURCE, GLUCOSE POC Capillary 06/27/2025 7:09 AM CONTINUOUS MINER OPERATOR HELPER [facility] Blood, whole 06/27/2025 7:09 AM CONTINUOUS MINER OPERATOR HELPER 06/27/2025 7:24 AM CONTINUOUS MINER OPERATOR HELPER us Issac Rico MD POINT OF CARE TESTING Final Resu lt Performing Organization Address [facility]/ZIP Co de Phone Number [facility] CLIA # [id number] [address] [place] [address] [place] [address] * (ABNORMAL) POC GLUCOSE (06/27/2025 4:58 AM CONTINUOUS MINER OPERATOR HELPER) GLUCOSE POC 140(H) 74 - 99 mg/dL 06/27/2025 4:58 AM CONTINUOUS MINER OPERATOR HELPER [facility] SPECIMEN SOURCE, GLUCOSE POC Capillary 06/27/2025 4:58 AM CONTINUOUS MINER OPERATOR HELPER [facility] Blood, whole 06/27/2025 4:58 AM CONTINUOUS MINER OPERATOR HELPER 06/27/2025 5:16 AM CONTINUOUS MINER OPERATOR HELPER us Issac Rico MD POINT OF CARE TESTING Final Resu lt [facility] CLIA # [id number] [address] [place] [address] * EKG 12-LEAD (06/27/2025 4:39 AM CONTINUOUS MINER OPERATOR HELPER) 06/27/2025 4:39 AM CONTINUOUS MINER OPERATOR HELPER Narrative INTERFACE SYSTEM - 06/27/2025 12:28 PM CONTINUOUS [place] [address] Test Date: 2025-06-27 Pat Name: ISAAC FRANKLIN Department: 12 Room: [address] [place] [address] Gender: Male Compliance Representative: [email or web address] : 1960 Requested By: Order Number: [id number] Reading MD: Smitha Vora Measurements Intervals Malin Rate: 68 P: 75 GA: 154 QRS: -27 QRSD: 88 T: 89 QT: 510 QTc: 542 Interpretive Statements Normal sinus rhythm ST & T wave abnormality, consider anterolateral ischemia Prolonged QT Abnormal ECG Electronically Signed On 06-27-2025 12:28:08 CONTINUOUS MINER OPERATOR HELPER by Smitha Vora Procedure Note Provider, Historical - 06/27/[address] [address] Test Date: 2025-06-27 Pat Name: ISAAC FRANKLIN Department: 12 Room: [address] [place] [address] Gender: Male Compliance Representative: [email or web address] : 1960 Requested By: Order Number: [id number] Reading MD: Smitha Vora Measurements Intervals Malin Rate: 68 P: 75 GA: 154 QRS: -27 QRSD: 88 T: 89 QT: 510 QTc: 542 Interpretive Statements Normal sinus rhythm ST & T wave abnormality, consider anterolateral ischemia Prolonged QT Abnormal ECG Electronically Signed On 06-27-2025 12:28:08 CONTINUOUS MINER OPERATOR HELPER by Smitha Vora us Ebony Lopez MD ECG ORDERABLES Final Result INTERFACE SYSTEM Refer to clinic/hospital department * (ABNORMAL) CBC WITH DIFFERENTIAL (06/27/2025 1:51 AM CDT) WBC 13.2(H) 4.8 - 10.8 K/uL 06/27/2025 2:43 AM [facility] RBC 3.18(L) 4.60 - 6.20 M/uL 06/27/2025 2:43 AM [facility] HEMOGLOBIN 9.8(L) 14.0 - 18.0 g/dL 06/27/2025 2:43 AM [facility] HEMATOCRIT 30.2(L) 41.0 - 53.0 % 06/27/2025 2:43 AM [facility] MCV 95.0 84.0 - 103.0 fL 06/27/2025 2:43 AM [facility] MCH 30.8 27.0 - 34.0 pg 06/27/2025 2:43 AM [facility] MCHC 32.5 30.0 - 35.0 g/dL 06/27/2025 2:43 AM [facility] PLATELETS 608(H) 140 - 440 K/uL 06/27/2025 2:43 AM [facility] MPV 10.3 8.9 - 12.8 fL 06/27/2025 2:43 AM [facility] RDW 12.5 11.0 - 14.5 % 06/27/2025 2:43 AM [facility] RDW-STDEV 43.4 37.0 - 54.0 fL 06/27/2025 2:43 AM [facility] NEUTROPHILS 68 42 - 75 % 06/27/2025 2:43 AM [facility] LYMPHOCYTES 17(L) 24 - 44 % 06/27/2025 2:43 AM [facility] MONOCYTES 8 2 - 10 % 06/27/2025 2:43 AM [facility] EOSINOPHILS 4 0 - 7 % 06/27/2025 2:43 AM [facility] BASOPHILS 1 0 - 1 % 06/27/2025 2:43 AM [facility] IMMATURE GRANULOCYTES 2 0 - 2 % 06/27/2025 2:43 AM [facility] NEUTROPHIL ABSOLUTE 8.99(H) 2.00 - 8.00 K/uL 06/27/2025 2:43 AM [facility] LYMPHOCYTE ABSOLUTE 2.19 1.20 - 4.00 K/uL 06/27/2025 2:43 AM [facility] MONOCYTE ABSOLUTE 1.01(H) 0.10 - 0.60 K/uL 06/27/2025 2:43 AM [facility] EOSINOPHIL ABSOLUTE 0.57 0.00 - 0.70 K/uL 06/27/2025 2:43 AM [facility] BASOPHILS ABSOLUTE 0.13 0.00 - 0.20 K/uL 06/27/2025 2:43 AM [facility] IMMATURE GRANULOCYTES ABSOLUTE 0.29(H) 0.00 - 0.10 K/uL 06/27/2025 2:43 AM [facility] SMEAR REVIEWED: NA - Not Applicable 06/27/2025 2:43 AM [facility] Blood Venipuncture / Unknown 06/27/2025 1:51 AM CDT 06/27/2025 2:35 AM CONTINUOUS MINER OPERATOR HELPER us Issac Rico MD HEMATOLOGY ORDERABLES Final Resu lt [facility] CLIA # [id number] [address] [address] [place] [address] * (ABNORMAL) BASIC METABOLIC PANEL (06/27/2025 1:51 AM CDT) SODIUM 135(L) 136 - 145 mmol/L 06/27/2025 3:05 AM [facility] POTASSIUM 3.8 3.5 - 5.1 mmol/L 06/27/2025 3:05 AM [facility] CHLORIDE 100 98 - 107 mmol/L 06/27/2025 3:05 AM [facility] CO2 23 22 - 29 mmol/L 06/27/2025 3:05 AM [facility] CALCIUM 8.6(L) 8.8 - 10.2 mg/dL 06/27/2025 3:05 AM [facility] BUN 24(H) 8 - 23 mg/dL 06/27/2025 3:05 AM [facility] CREATININE 0.61(L) 0.67 - 1.17 mg/dL 06/27/2025 3:05 AM [facility] GLUCOSE 161(H) 74 - 99 mg/dL 06/27/2025 3:05 AM [facility] GFR >60 >=60 mL/min/1. 73 sq meter 06/27/2025 3:05 AM [facility] Comment:eGFR calculated with 2020 CKD-EPI equation. Vegetarian diet, extremely high or low muscle mass, and may affect results. Cystatin C with Glomerular Filtration Rate is a suitable alternative for these patients. ANION GAP 12 9 - 20 mmol/L 06/27/2025 3:05 AM [facility] Blood Venipuncture / Unknown 06/27/2025 1:51 AM CDT 06/27/2025 2:33 AM CONTINUOUS MINER OPERATOR HELPER us Issac Rico MD CHEMISTRY ORDERABLES Final Resul t [facility] CLIA # [id number] [address] [facility] [place] [address] * (ABNORMAL) POC GLUCOSE (06/27/2025 12:49 AM CDT) GLUCOSE POC 182(H) 74 - 99 mg/dL 06/27/2025 12:49 AM CDT [facility] SPECIMEN SOURCE, GLUCOSE POC Capillary 06/27/2025 12:49 AM CDT [facility] Blood, whole 06/27/2025 12:4 9 AM CDT 06/27/2025 1:32 AM CDT us Issac Rico MD POINT OF CARE TESTING Final Resu lt Performing Organization Address [facility] Co de Phone Number [facility] CLIA # [id number] [address] [address] [place] [address] * (ABNORMAL) POC GLUCOSE (06/26/2025 8:16 PM CDT) GLUCOSE POC 195(H) 74 - 99 mg/dL 06/26/2025 8:16 PM CDT [facility] SPECIMEN SOURCE, GLUCOSE POC Capillary 06/26/2025 8:16 PM CDT [facility] Blood, whole 06/26/2025 8:16 PM CDT 06/26/2025 9:02 PM CDT us Issac Rico MD POINT OF CARE TESTING Final Resu lt [facility] CLIA # [id number] [address] [place] [id number] [place] [address] * (ABNORMAL) POC GLUCOSE (06/26/2025 4:46 PM CDT) GLUCOSE POC 232(H) 74 - 99 mg/dL 06/26/2025 4:46 PM CDT [facility] SPECIMEN SOURCE, GLUCOSE POC Capillary 06/26/2025 4:46 PM CDT [facility] Blood, whole 06/26/2025 4:46 PM CDT 06/26/2025 4:55 PM CDT Issac Rico MD POINT OF CARE TESTING Final Resu lt Performing Organization Address [facility] Co de Phone Number [facility] CLIA # [id number] [address] [id number] * (ABNORMAL) POC GLUCOSE (06/26/2025 11:46 AM CDT) GLUCOSE POC 165(H) 74 - 99 mg/dL 06/26/2025 11:46 AM CDT [facility] SPECIMEN SOURCE, GLUCOSE POC Capillary 06/26/2025 11:46 AM CDT [facility] Blood, whole 06/26/2025 11:4 6 AM CDT 06/26/2025 11:54 AM CDT Issac Rico MD POINT OF CARE TESTING Final Resu lt Performing Organization Address [facility]/ZIP Co de Phone Number [facility] CLIA # [id number] [address] [address] * (ABNORMAL) PROCALCITONIN (06/26/2025 10:36 AM CDT) Pathologist [facility] [place] PROCALCITONIN 0.10(H) <=0.08 ng/mL 06/26/2025 12:02 PM CDT [facility] Blood Venipuncture / Unknown 06/26/2025 10:36 AM CDT 06/26/2025 11:18 AM CDT Narrative [facility] - 06/26/2025 12:02 PM CDT The utility of procalcitonin is limited/NOT recommended in certain populations (e.g. newborns, dialysis/ESRD, patients with recent major surgery/trauma/[place], liver cirrhosis, viral hepatitis, certain cancers, etc.). Procalcitonin levels MUST be interpreted in the context of the patient's clinical condition and CANNOT be solely relied upon for diagnosis of infection. <0.25 ng/mL: Bacterial infection unlikely, particularly lower respiratory tract infections. <0.5 ng/mL: Low risk for progression to severe sepsis/septic shock. Localized infection possible. Measurements done early (<6 hours) after systemic process starts may still be low. 0.5-2 ng/mL: Moderate risk for progression to severe sepsis/septic shock. >2 ng/mL: High risk for progression to severe sepsis/septic shock. If antibiotics ARE administered, repeat testing is recommended every 2-3 days to help guide antibiotic cessation. Once a decrease of 80% or more has occurred from baseline, discontinuation of antibiotics should strongly be considered in clinically stable patients. Procalcitonin is produced in the setting of systemic inflammation, particularly bacterial infections. It is detectable within 2-4 hours and peaks within 6-24 hours. us Issac Rico MD CHEMISTRY ORDERABLES Final Resul t [facility] CLIA # [id number] [address] [place] [address] * (ABNORMAL) POC GLUCOSE (06/26/2025 7:29 AM CDT) GLUCOSE POC 146(H) 74 - 99 mg/dL 06/26/2025 7:29 AM CDT [facility] SPECIMEN SOURCE, GLUCOSE POC Capillary 06/26/2025 7:29 AM CDT [facility] Blood, whole 06/26/2025 7:29 AM CDT 06/26/2025 7:38 AM CDT us Issac Rico MD POINT OF CARE TESTING Final Resu lt [facility] NANCY # [id number] [address] [address] [address] [facility] [place] [address] * (ABNORMAL) BASIC METABOLIC PANEL (06/26/2025 5:37 AM CDT) SODIUM 135(L) 136 - 145 mmol/L 06/26/2025 6:20 AM CDT [facility] POTASSIUM 3.7 3.5 - 5.1 mmol/L 06/26/2025 6:20 AM CDT [facility] CHLORIDE 100 98 - 107 mmol/L 06/26/2025 6:20 AM T [facility] CO2 24 22 - 29 mmol/L 06/26/2025 6:20 AM T [facility] CALCIUM 8.5(L) 8.8 - 10.2 mg/dL 06/26/2025 6:20 AM T [facility] BUN 24(H) 8 - 23 mg/dL 06/26/2025 6:20 AM T [facility] CREATININE 0.68 0.67 - 1.17 mg/dL 06/26/2025 6:20 AM T [facility] GLUCOSE 162(H) 74 - 99 mg/dL 06/26/2025 6:20 AM T [facility] GFR >60 >=60 mL/min/1.7 3 sq meter 06/26/2025 6:20 AM T [facility] Comment:eGFR calculated with 2020 CKD-EPI equation. Vegetarian diet, extremely high or low muscle mass, and may affect results. Cystatin C with Glomerular Filtration Rate is a suitable alternative for these patients. ANION GAP 11 9 - 20 mmol/L 06/26/2025 6:20 AM T [facility] Blood Venipuncture / Unknown 06/26/2025 5:37 AM CDT 06/26/2025 5:48 AM CDT us Issac Rico MD CHEMISTRY ORDERABLES Final Resul t [facility] CLIA # [id number] [address] [address] [place] [address] * (ABNORMAL) CBC WITH DIFFERENTIAL (06/26/2025 5:37 AM CDT) [facility] WBC 12.9(H) 4.8 - 10.8 K/uL 06/26/2025 6:02 AM CDT [facility] RBC 3.16(L) 4.60 - 6.20 M/uL 06/26/2025 6:02 AM CDT [facility] HEMOGLOBIN 9.5(L) 14.0 - 18.0 g/dL 06/26/2025 6:02 AM CDT [facility] HEMATOCRIT 29.6(L) 41.0 - 53.0 % 06/26/2025 6:02 AM CDT [facility] MCV 93.7 84.0 - 103.0 fL 06/26/2025 6:02 AM CDT [facility] MCH 30.1 27.0 - 34.0 pg 06/26/2025 6:02 AM CDT [facility] MCHC 32.1 30.0 - 35.0 g/dL 06/26/2025 6:02 AM CDT [facility] PLATELETS 588(H) 140 - 440 K/uL 06/26/2025 6:02 AM CDT [facility] MPV 10.1 8.9 - 12.8 fL 06/26/2025 6:02 AM CDT [facility] RDW 13.0 11.0 - 14.5 % 06/26/2025 6:02 AM CDT [facility] RDW-STDEV 44.8 37.0 - 54.0 fL 06/26/2025 6:02 AM [facility]UTR[facility]ILS 68 42 - 75 % 06/26/2025 6:02 AM [facility] LYMPHOCYTES 17(L) 24 - 44 % 06/26/2025 6:02 AM [facility] MONOCYTES 8 2 - 10 % 06/26/2025 6:02 AM [facility] EOSINOPHILS 5 0 - 7 % 06/26/2025 6:02 AM T [facility] BASOPHILS 1 0 - 1 % 06/26/2025 6:02 AM T [facility] IMMATURE GRANULOCYTES 2 0 - 2 % 06/26/2025 6:02 AM T [facility] NEUTROPHIL ABSOLUTE 8.72(H) 2.00 - 8.00 K/uL 06/26/2025 6:02 AM [facility] LYMPHOCYTE ABSOLUTE 2.18 1.20 - 4.00 K/uL 06/26/2025 6:02 AM T [facility] MONOCYTE ABSOLUTE 1.01(H) 0.10 - 0.60 K/uL 06/26/2025 6:02 AM [facility] EOSINOPHIL ABSOLUTE 0.60 0.00 - 0.70 K/uL 06/26/2025 6:02 AM [facility] BASOPHILS ABSOLUTE 0.13 0.00 - 0.20 K/uL 06/26/2025 6:02 AM [facility] IMMATURE GRANULOCYTES ABSOLUTE 0.22(H) 0.00 - 0.10 K/uL 06/26/2025 6:02 AM [facility] SMEAR REVIEWED: NA - Not Applicable 06/26/2025 6:02 AM [facility] Blood Venipuncture / Unknown 06/26/2025 5:37 AM CDT 06/26/2025 5:48 AM CDT us Issac Rico MD HEMATOLOGY ORDERABLES Final Resu lt [facility] CLIA # [id number] [address] [facility] [place] [address] * EKG 12-LEAD (06/26/2025 4:51 AM CDT) 06/26/2025 4:51 AM CDT Narrative INTERFACE SYSTEM - 06/27/2025 12:14 PM CONTINUOUS MINER OPERATOR HELPER [id number] [place] [address] Test Date: 2025-06-26 Pat Name: ISAAC FRANKLIN Department: 12 Room: [address] [place] [address] Gender: Male Compliance Representative: [email or web address] : 1960 Requested By: Order Number: [id number] Reading MD: Smitha Vora Measurements Intervals Malin Rate: 66 P: 58 GA: 152 QRS: -28 QRSD: 90 T: 56 QT: 508 QTc: 532 Interpretive Statements Sinus rhythm with premature atrial complexes Nonspecific ST and T wave abnormality Prolonged QT Abnormal ECG Electronically Signed On 06-27-2025 12:14:29 CONTINUOUS MINER OPERATOR HELPER by Smitha Vora Procedure Note Provider, Historical - 06/27/[address] [address] Test Date: 2025-06-26 Pat Name: ISAAC FRANKLIN Department: 12 Room: [address] [place] [address] Gender: Male Compliance Representative: [email or web address] : 1960 Requested By: Order Number: [id number] Reading MD: Smitha Vora Measurements Intervals Malin Rate: 66 P: 58 GA: 152 QRS: -28 QRSD: 90 T: 56 QT: 508 QTc: 532 Interpretive Statements Sinus rhythm with premature atrial complexes Nonspecific ST and T wave abnormality Prolonged QT Abnormal ECG Electronically Signed On 06-27-2025 12:14:29 CONTINUOUS MINER OPERATOR HELPER by Smitha Vora us Ebony Lopez MD ECG ORDERABLES Final Result INTERFACE SYSTEM Refer to clinic/hospital department * (ABNORMAL) POC GLUCOSE (06/26/2025 4:04 AM CDT) GLUCOSE POC 148(H) 74 - 99 mg/dL 06/26/2025 4:04 AM CDT [facility] SPECIMEN SOURCE, GLUCOSE POC Capillary 06/26/2025 4:04 AM CDT [facility] Blood, whole 06/26/2025 4:04 AM CDT 06/26/2025 4:44 AM CDT Issac Rico MD POINT OF CARE TESTING Final Resu lt Performing Organization Address [facility] Co de Phone Number [facility] CLIA # [id number] [address] [address] [place], [place] [address] * (ABNORMAL) POC GLUCOSE (06/25/2025 11:27 PM CDT) GLUCOSE POC 123(H) 74 - 99 mg/dL 06/25/2025 11:27 PM CDT [facility] SPECIMEN SOURCE, GLUCOSE POC Capillary 06/25/2025 11:27 PM CDT [facility] Blood, whole 06/25/2025 11:2 7 PM CDT 06/25/2025 11:38 PM CDT us Issac Rico MD POINT OF CARE TESTING Final Resu lt Performing Organization Address [facility] Co de Phone Number [facility] CLIA # [id number] [address] [address] [place] [address] * CTA CHEST W AND/OR WO CONTRAST (06/25/2025 11:12 PM CDT) Anatomical Region Laterality Modality Chest Computed Tomogra phy 06/25/2025 11:1 4 PM CDT Narrative 06/26/2025 8:35 AM CDT Exam: CTA CHEST W AND/OR WO CONTRAST Date/Time of Exam: 06/25/2025 11:12 PM Reason For Exam: See Diagnosis. Diagnosis: ST elevation myocardial infarction (STEMI), unspecified artery; Cardiac arrest with ventricular fibrillation (CMS/HCC); Cardiac arrest with ventricular fibrillation (CMS/HCC); CHB (complete heart block); Laboratory test; Patient receiving extracorporeal membrane oxygenation (ECMO); Ischemic dilated cardiomyopathy (CMS/HCC); Ischemic dilated cardiomyopathy (CMS/HCC). Technique: CTA of the chest was performed prior to and/or following the administration of intravenous contrast. Post-processing was performed, including sagittal and coronal reformations and 3-D reconstruction. Contrast (if used): Isovue-300 Comparison: None. Findings: Mediastinal Windows: The heart size is mildly enlarged with trace pericardial effusion. Atherosclerotic calcifications are present in the coronary arteries and thoracic aorta. No thoracic aortic aneurysm or dissection. The pulmonary arteries are patent without filling defect. Reactive size lymph nodes are present in the mediastinal and hilar stations. Visualized thyroid gland is within normal limits. Lung windows: There are patchy diffuse pulmonary groundglass opacities and interlobular septal thickening. Mild secretions are present in the trachea and left mainstem bronchus. More confluent atelectasis is noted in the lower lobes with trace bilateral pleural effusions. No pneumothorax. Upper abdomen: High density material in the gallbladder likely relates to vicarious excretion. The liver is mildly enlarged. No acute findings. MUSCULOSKELETAL: Degenerative changes are present in the upper lumbar spine. There are numerous displaced anterior rib fractures consistent with cardiopulmonary resuscitation. No soft tissue air. ++++++++++++++++++++ IMPRESSION No CTA evidence of pulmonary embolism. Diffuse interstitial and pulmonary groundglass opacities suggesting edema or atypical pneumonitis. Trace pleural effusions and mild basilar atelectasis. Multiple mildly displaced lateral anterior rib fractures consistent with cardiopulmonary resuscitation. Procedure Note Camilo Beckett MD - 06/26/2025 Exam: CTA CHEST W AND/OR WO CONTRAST Date/Time of Exam: 06/25/2025 11:12 PM Reason For Exam: See Diagnosis. Diagnosis: ST elevation myocardial infarction (STEMI), unspecified artery; Cardiac arrest with ventricular fibrillation (CMS/HCC); Cardiac arrest with ventricular fibrillation (CMS/HCC); CHB (complete heart block); Laboratory test; Patient receiving extracorporeal membrane oxygenation (ECMO); Ischemic dilated cardiomyopathy (CMS/HCC); Ischemic dilated cardiomyopathy (CMS/HCC). Technique: CTA of the chest was performed prior to and/or following the administration of intravenous contrast. Post-processing was performed, including sagittal and coronal reformations and 3-D reconstruction. Contrast (if used): Isovue-300 Comparison: None. Findings: Mediastinal Windows: The heart size is mildly enlarged with trace pericardial effusion. Atherosclerotic calcifications are present in the coronary arteries and thoracic aorta. No thoracic aortic aneurysm or dissection. The pulmonary arteries are patent without filling defect. Reactive size lymph nodes are present in the mediastinal and hilar stations. Visualized thyroid gland is within normal limits. Lung windows: There are patchy diffuse pulmonary groundglass opacities and interlobular septal thickening. Mild secretions are present in the trachea and left mainstem bronchus. More confluent atelectasis is noted in the lower lobes with trace bilateral pleural effusions. No pneumothorax. Upper abdomen: High density material in the gallbladder likely relates to vicarious excretion. The liver is mildly enlarged. No acute findings. MUSCULOSKELETAL: Degenerative changes are present in the upper lumbar spine. There are numerous displaced anterior rib fractures consistent with cardiopulmonary resuscitation. No soft tissue air. ++++++++++++++++++++ IMPRESSION No CTA evidence of pulmonary embolism. Diffuse interstitial and pulmonary groundglass opacities suggesting edema or atypical pneumonitis. Trace pleural effusions and mild basilar atelectasis. Multiple mildly displaced lateral anterior rib fractures consistent with cardiopulmonary resuscitation. Issac Rico MD CT ORDERABLES Final Result * (ABNORMAL) POC GLUCOSE (06/25/2025 8:20 PM CDT) GLUCOSE POC 188(H) 74 - 99 mg/dL 06/25/2025 8:20 PM CDT [facility] SPECIMEN SOURCE, GLUCOSE POC Capillary 06/25/2025 8:20 PM CDT [facility] Blood, whole 06/25/2025 8:20 PM CDT 06/25/2025 9:20 PM CDT Issac Rico MD POINT OF CARE TESTING Final Resu lt [facility] CLIA # [id number] [address] [place] [address] * (ABNORMAL) POC GLUCOSE (06/25/2025 5:13 PM CDT) GLUCOSE POC 130(H) 74 - 99 mg/dL 06/25/2025 5:13 PM CDT [facility] SPECIMEN SOURCE, GLUCOSE POC Capillary 06/25/2025 5:13 PM CDT [facility] Blood, whole 06/25/2025 5:13 PM CDT 06/25/2025 5:21 PM CDT us Issac Rico MD POINT OF CARE TESTING Final Resu lt Performing Organization Address [facility] Co de Phone Number [facility] CLIA # [id number] [address] [address] [place] [address] * (ABNORMAL) POC GLUCOSE (06/25/2025 11:28 AM CDT) GLUCOSE POC 137(H) 74 - 99 mg/dL 06/25/2025 11:28 AM CDT [facility] SPECIMEN SOURCE, GLUCOSE POC Capillary 06/25/2025 11:28 AM CDT [facility] Blood, whole 06/25/2025 11:2 8 AM CDT 06/25/2025 11:36 AM CDT us Issac Rico MD POINT OF CARE TESTING Final Resu lt [facility] CLIA # [id number] [address] [place] [address] * (ABNORMAL) POC GLUCOSE (06/25/2025 7:42 AM CDT) GLUCOSE POC 178(H) 74 - 99 mg/dL 06/25/2025 7:42 AM CDT [facility] SPECIMEN SOURCE, GLUCOSE POC Capillary 06/25/2025 7:42 AM CDT [facility] Blood, whole 06/25/2025 7:42 AM CDT 06/25/2025 7:50 AM CDT us Issac Rico MD POINT OF CARE TESTING Final Resu lt [facility] CLIA # [id number] [address] [id number] * EKG 12-LEAD (06/25/2025 6:12 AM CDT) 06/25/2025 6:12 AM CDT Narrative INTERFACE SYSTEM - 06/25/2025 3:52 PM CDT [address] [address] Test Date: 2025-06-25 Pat Name: ISAAC FRANKLIN Department: 12 Room: [address] [place] [address] Gender: Male Compliance Representative: [id number] : 1960 Requested By: Trisha Order Number: [id number] Reading MD: Tena Su Measurements Intervals Malin Rate: 65 P: 72 GA: 150 QRS: -7 QRSD: 96 T: 43 QT: 532 QTc: 553 Interpretive Statements Normal sinus rhythm Nonspecific ST and T wave abnormality Prolonged QT Abnormal ECG Electronically Signed On 06-25-2025 15:52:42 CDT by Tena Su Procedure Note Tena Su, DO - 06/25/[address] [address] Test Date: 2025-06-25 Pat Name: ISAAC FRANKLIN Department: 12 Room: [address] [place] [address] Gender: Male Compliance Representative: [id number] : 1960 Requested By: Trisha Order Number: [id number] Reading MD: Tena Su Measurements Intervals Malin Rate: 65 P: 72 GA: 150 QRS: -7 QRSD: 96 T: 43 QT: 532 QTc: 553 Interpretive Statements Normal sinus rhythm Nonspecific ST and T wave abnormality Prolonged QT Abnormal ECG Electronically Signed On 06-25-2025 15:52:42 CDT by Tena Su us Ebony Lopez MD ECG ORDERABLES Final Result INTERFACE SYSTEM Refer to clinic/hospital department * (ABNORMAL) POC GLUCOSE (06/25/2025 5:40 AM CDT) Pathologist [facility] GLUCOSE POC 149(H) 74 - 99 mg/dL 06/25/2025 5:40 AM CDT [facility] SPECIMEN SOURCE, GLUCOSE POC Capillary 06/25/2025 5:40 AM CDT [facility] Blood, whole 06/25/2025 5:40 AM CDT 06/25/2025 5:53 AM CDT us Issac Rico MD POINT OF CARE TESTING Final Resu lt Performing Organization Address [facility]/ZIP Co de Phone Number [facility] CLIA # [id number] [address] [place] [address] * (ABNORMAL) CBC WITH DIFFERENTIAL (06/25/2025 4:57 AM CDT) WBC 16.8(H) 4.8 - 10.8 K/uL 06/25/2025 5:09 AM CDT [facility] RBC 3.00(L) 4.60 - 6.20 M/uL 06/25/2025 5:09 AM CDT [facility] HEMOGLOBIN 9.4(L) 14.0 - 18.0 g/dL 06/25/2025 5:09 AM CDT [facility] HEMATOCRIT 28.9(L) 41.0 - 53.0 % 06/25/2025 5:09 AM [facility] MCV 96.3 84.0 - 103.0 fL 06/25/2025 5:09 AM [facility] MCH 31.3 27.0 - 34.0 pg 06/25/2025 5:09 AM [facility] MCHC 32.5 30.0 - 35.0 g/dL 06/25/2025 5:09 AM [facility] PLATELETS 527(H) 140 - 440 K/uL 06/25/2025 5:09 AM [facility] MPV 10.2 8.9 - 12.8 fL 06/25/2025 5:09 AM [facility] RDW 13.1 11.0 - 14.5 % 06/25/2025 5:09 AM [facility] RDW-STDEV 46.2 37.0 - 54.0 fL 06/25/2025 5:09 AM [facility] NEUTROPHILS 75 42 - 75 % 06/25/2025 5:09 AM [facility] LYMPHOCYTES 12(L) 24 - 44 % 06/25/2025 5:09 AM [facility] MONOCYTES 7 2 - 10 % 06/25/2025 5:09 AM [facility] EOSINOPHILS 4 0 - 7 % 06/25/2025 5:09 AM [facility] BASOPHILS 1 0 - 1 % 06/25/2025 5:09 AM [facility] IMMATURE GRANULOCYTES 2 0 - 2 % 06/25/2025 5:09 AM [facility] NEUTROPHIL ABSOLUTE 12.66(H) 2.00 - 8.00 K/uL 06/25/2025 5:09 AM [facility] LYMPHOCYTE ABSOLUTE 2.05 1.20 - 4.00 K/uL 06/25/2025 5:09 AM [facility] MONOCYTE ABSOLUTE 1.12(H) 0.10 - 0.60 K/uL 06/25/2025 5:09 AM CDT [facility] EOSINOPHIL ABSOLUTE 0.60 0.00 - 0.70 K/uL 06/25/2025 5:09 AM CDT [facility] BASOPHILS ABSOLUTE 0.13 0.00 - 0.20 K/uL 06/25/2025 5:09 AM CDT [facility] IMMATURE GRANULOCYTES ABSOLUTE 0.28(H) 0.00 - 0.10 K/uL 06/25/2025 5:09 AM CDT [facility] SMEAR REVIEWED: NA - Not Applicable 06/25/2025 5:09 AM CDT [facility] Blood Venipuncture / Unknown 06/25/2025 4:57 AM CDT 06/25/2025 5:02 AM CDT us Issac Rico MD HEMATOLOGY ORDERABLES Final Resu lt [facility] CLIA # [id number] [address] [place] [id number] * (ABNORMAL) BASIC METABOLIC PANEL (06/25/2025 4:57 AM CDT) SODIUM 135(L) 136 - 145 mmol/L 06/25/2025 5:49 AM CDT [facility] POTASSIUM 3.6 3.5 - 5.1 mmol/L 06/25/2025 5:49 AM CDT [facility] CHLORIDE 100 98 - 107 mmol/L 06/25/2025 5:49 AM CDT [facility] CO2 24 22 - 29 mmol/L 06/25/2025 5:49 AM CDT [facility] CALCIUM 8.7(L) 8.8 - 10.2 mg/dL 06/25/2025 5:49 AM CDT [facility] BUN 30(H) 8 - 23 mg/dL 06/25/2025 5:49 AM CDT [facility] CREATININE 0.69 0.67 - 1.17 mg/dL 06/25/2025 5:49 AM CDT [facility] GLUCOSE 151(H) 74 - 99 mg/dL 06/25/2025 5:49 AM CDT [facility] GFR >60 >=60 mL/min/1.7 3 sq meter 06/25/2025 5:49 AM CDT [facility] Comment:eGFR calculated with 2020 CKD-EPI equation. Vegetarian diet, extremely high or low muscle mass, and may affect results. Cystatin C with Glomerular Filtration Rate is a suitable alternative for these patients. ANION GAP 11 9 - 20 mmol/L 06/25/2025 5:49 AM CDT [facility] Blood Venipuncture / Unknown 06/25/2025 4:57 AM CDT 06/25/2025 5:03 AM CDT us Issac Rico MD CHEMISTRY ORDERABLES Final Resul t Performing Organization Address [facility] Co de Phone Number [facility] CLIA # [id number] [address] [place] [address] * (ABNORMAL) POC GLUCOSE (06/25/2025 1:35 AM CDT) GLUCOSE POC 140(H) 74 - 99 mg/dL 06/25/2025 1:35 AM CDT [facility] SPECIMEN SOURCE, GLUCOSE POC Capillary 06/25/2025 1:35 AM CDT [facility] Blood, whole 06/25/2025 1:35 AM CDT 06/25/2025 1:43 AM CDT us Issac Rico MD POINT OF CARE TESTING Final Resu lt Performing Organization Address [facility] Co de Phone Number [facility] CLIA # [id number] [address] [place] [address] * POC GLUCOSE (06/24/2025 8:09 PM CDT) GLUCOSE POC 89 74 - 99 mg/dL 06/24/2025 8:09 PM CDT [facility] SPECIMEN SOURCE, GLUCOSE POC Capillary 06/24/2025 8:09 PM CDT [facility] Blood, whole 06/24/2025 8:09 PM CDT 06/24/2025 8:39 PM CDT Issac Rico MD POINT OF CARE TESTING Final Resu lt Performing Organization Address [facility]/ZIP Co de Phone Number [facility] CLIA # [id number] [address] [address] * (ABNORMAL) POC GLUCOSE (06/24/2025 4:47 PM CDT) Pathologist [facility] GLUCOSE POC 249(H) 74 - 99 mg/dL 06/24/2025 4:47 PM CDT [facility] SPECIMEN SOURCE, GLUCOSE POC Capillary 06/24/2025 4:47 PM CDT [facility] Blood, whole 06/24/2025 4:47 PM CDT 06/24/2025 6:26 PM CDT us Issac Rico MD POINT OF CARE TESTING Final Resu lt Performing Organization Address [facility]/ZIP Co de Phone Number [facility] CLIA # [id number] [address] [address] * BLOOD CULTURE (06/24/2025 3:35 PM CDT) [facility] BLOOD CULTURE No growth 06/29/2025 4:41 PM CONTINUOUS MINER OPERATOR HELPER [facility] Blood (Peripheral) Venipuncture / Unknown 06/24/2025 3:35 PM CDT 06/24/2025 3:43 PM CDT [facility] - 06/29/2025 4:41 PM CONTINUOUS MINER OPERATOR HELPER Specimen processed with suboptimal blood volume collected. Issac Rico MD MICROBIOLOGY - GENERAL ORDERABLE S Final Result Performing Organization Address [facility] Co de Phone Number [facility] CLIA # [id number] [address] [facility] [place], [place] [id number] * UNFRACTIONATED HEPARIN MONITORING (06/24/2025 3:35 PM CDT) [facility] ANTI-XA UNFRAC HEP 0.18 See Interpretation IU/mL 06/24/2025 4:03 PM CDT [facility] Blood Venipuncture / Unknown 06/24/2025 3:35 PM CDT 06/24/2025 3:40 PM CDT [facility] - 06/24/2025 4:03 PM CDT Therapeutic Range: PT/DVT Heparin Protocol 0.3 - 0.7 IU/ml Cardiac Heparin Protocol 0.3 - 0.6 IU/ml The reference range for this test is specific to the anticoagulant and is not appropriate for monitoring patients on a DOAC protocol. Issac Rico MD HEMATOLOGY ORDERABLES Final Resu lt Performing Organization Address [facility]/ZIP Co de Phone Number [facility] CLIA # [id number] [address] [facility] [place], [place] [id number] * BLOOD CULTURE (06/24/2025 1:59 PM CDT) [facility] BLOOD CULTURE No growth 06/29/2025 2:03 PM CONTINUOUS MINER OPERATOR HELPER [facility] Blood (Peripheral) Venipuncture / Unknown 06/24/2025 1:59 PM CDT 06/24/2025 2:05 PM CDT Narrative [facility] - 06/29/2025 2:03 PM CONTINUOUS MINER OPERATOR HELPER Specimen processed with suboptimal blood volume collected. us Issac Rico MD MICROBIOLOGY - GENERAL ORDERABLE S Final Result Performing Organization Address [facility] Co de Phone Number [facility] CLIA # [id number] [address] [address] [place] [address] * (ABNORMAL) POC GLUCOSE (06/24/2025 12:32 PM CDT) GLUCOSE POC 135(H) 74 - 99 mg/dL 06/24/2025 12:32 PM CDT [facility] SPECIMEN SOURCE, GLUCOSE POC Capillary 06/24/2025 12:32 PM CDT [facility] Blood, whole 06/24/2025 12:3 2 PM CDT 06/24/2025 12:41 PM CDT us Issac Rico MD POINT OF CARE TESTING Final Resu lt Performing Organization Address [facility] Co de Phone Number [facility] CLIA # [id number] [address] * XR VIDEO SWALLOW W SPEECH (06/24/2025 11:47 AM CDT) Anatomical Region Laterality Modality Chest Computed Radiogr aphy 06/24/2025 11:5 5 AM CDT Addenda Addendum by Gallito Ballesterso MD on 06/24/2025 12:35 PM CDT Addendum: On further review, Aspiration is identified. Impressions 06/24/2025 12:01 PM CDT IMPRESSION: Please see below. Exam: XR VIDEO SWALLOW W SPEECH Date/Time of Exam: 06/24/2025 11:47 AM Reason For Exam: Aspiration. This procedure was performed and preliminary findings dictated by MICHAEL ConroyC. Supervision and final interpretation by Dr. Ballesteros. Fluoroscopy was used for performance of video swallow study. The patient was given multiple consistencies of contrast material. The cervical esophagus is patent without stricture or obstruction. 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 Airway penetration. For further details regarding swallowing, please see detailed speech pathology report. Enteric tube in place. Narrative Procedure Note Gallito Ballesteros MD - 06/24/2025 IMPRESSION: Please see below. Exam: XR VIDEO SWALLOW W SPEECH Date/Time of Exam: 06/24/2025 11:47 AM Reason For Exam: Aspiration. This procedure was performed and preliminary findings dictated by MICHAEL Conroy. Supervision and final interpretation by Dr. Ballesteros. Fluoroscopy was used for performance of video swallow study. The patient was given multiple consistencies of contrast material. The cervical esophagus is patent without stricture or obstruction. 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 Airway penetration. For further details regarding swallowing, please see detailed speech pathology report. Enteric tube in place. us Issac Rico MD DIAGNOSTIC IMAGING ORDERABLES Ed ited Result - Final * US VENOUS DOPPLER LEG BILATERAL (06/24/2025 11:09 AM CDT) Anatomical Region Laterality Modality Lower Extremity Ultrasound 06/24/2025 10:3 0 AM CDT Narrative 06/24/2025 3:34 PM CDT [facility] Noninvasive Vascular Laboratory [address] [place] [address] Noninvasive Vascular Lab Venous Exam Complete Lower Extremity Duplex Patient: Isaac Franklin Study ID: US VENOUS DOPPLE Gender: M : 1960 Age: 65 Room: Height: Weight: BSA: Pt status: Inpatient Study Date: 06/24/2025 Study Time: 10:30:05 AM BSA: Ordering: Issac Rico Interpreting:Prince Yordan Mail Officer: EDIE Indications: LEG PAIN. Summary Impression: 1. No evidence of deep or superficial venous thrombosis involving the right lower extremity. 2. Study demonstrates acute deep vein thrombosis involving the the left peroneal veins and left soleal vein. 3. No prior study available for comparison. Study data: Complete lower extremity venous duplex evaluation. Doppler flow study including spectral analysis, color and alves scale imaging. Location: Bedside. Patient status: Inpatient. Portable. Study status: STAT. Procedure: A vascular evaluation was performed. Image quality was good. Venous flow and imaging: - Right common femoral Patent; Normal phasicity; spontaneous; compressible; normal augmentation - Right profunda femoral Patent; Normal phasicity; spontaneous; compressible; normal augmentation - Right femoral Patent; Normal phasicity; spontaneous; compressible; normal augmentation - Right popliteal Patent; Normal phasicity; spontaneous; compressible; normal augmentation - Right small saphenous Patent; Normal phasicity; spontaneous; compressible; normal augmentation - Right posterior tibial Patent; Compressible; normal augmentation - Right peroneal Patent; Compressible; normal augmentation - Right great saphenous Patent; Normal phasicity; spontaneous; compressible; normal augmentation - Right gastrocnemius Patent; Compressible - Left common femoral Patent; Normal phasicity; spontaneous; compressible; normal augmentation - Left profunda femoral Patent; Normal phasicity; spontaneous; compressible; normal augmentation - Left femoral Patent; Normal phasicity; spontaneous; compressible; normal augmentation - Left popliteal Patent; Normal phasicity; spontaneous; compressible; normal augmentation - Left small saphenous Patent; Normal phasicity; spontaneous; compressible; normal augmentation - Left posterior tibial Patent; Compressible; normal augmentation - Left peroneal Totally thrombosed; Noncompressible - Left great saphenous Patent; Normal phasicity; spontaneous; compressible; normal augmentation - Left soleal Totally thrombosed; Noncompressible CRITICAL FINDINGS - Reported to: TYLER MANUEL - 06/24/25 - 10:51AM - DVT [facility] Vascular Lab is accredited with the Intersocietal Commission for the Accreditation of Vascular Laboratories (ICAVL) Prepared and Electronically Authenticated Prince Elysia Farr 06/24/2025 15:34 Procedure Note Prince Farr MD - 06/24/2025 [facility] Noninvasive Vascular Laboratory [facility] [place] [address] Noninvasive Vascular Lab Venous Exam Complete Lower Extremity Duplex Patient: Isaac Franklin Study ID: US VENOUS DOPPLE Gender: M : 1960 Age: 65 Room: Height: Weight: BSA: Pt status: Inpatient Study Date: 06/24/2025 Study Time: 10:30:05 AM BSA: Ordering: Issac Rico Interpreting:Prince Yordan Mail Officer: EDIE Indications: LEG PAIN. Summary Impression: 1. No evidence of deep or superficial venous thrombosis involving theright lower extremity. 2. Study demonstrates acute deep vein thrombosis involving the the left peroneal veins and left soleal vein. 3. No prior study available for comparison. Study data: Complete lower extremity venous duplex evaluation.Doppler flow study including spectral analysis, color and alves scale imaging. Location: Bedside. Patient status: Inpatient. Portable. Studystatus: STAT. Procedure: A vascular evaluation was performed. Image qualitywas good. Venous flow and imaging: - Right common femoral Patent; Normal phasicity; spontaneous;compressible; normal augmentation - Right profunda femoral Patent; Normal phasicity; spontaneous;compressible; normal augmentation - Right femoral Patent; Normal phasicity; spontaneous; compressible;normal augmentation - Right popliteal Patent; Normal phasicity; spontaneous; compressible;normal augmentation - Right small saphenous Patent; Normal phasicity; spontaneous;compressible; normal augmentation - Right posterior tibial Patent; Compressible; normal augmentation - Right peroneal Patent; Compressible; normal augmentation - Right great saphenous Patent; Normal phasicity; spontaneous;compressible; normal augmentation - Right gastrocnemius Patent; Compressible - Left common femoral Patent; Normal phasicity; spontaneous;compressible; normal augmentation - Left profunda femoral Patent; Normal phasicity; spontaneous;compressible; normal augmentation - Left femoral Patent; Normal phasicity; spontaneous; compressible;normal augmentation - Left popliteal Patent; Normal phasicity; spontaneous; compressible;normal augmentation - Left small saphenous Patent; Normal phasicity; spontaneous;compressible; normal augmentation - Left posterior tibial Patent; Compressible; normal augmentation - Left peroneal Totally thrombosed; Noncompressible - Left great saphenous Patent; Normal phasicity; spontaneous;compressible; normal augmentation - Left soleal Totally thrombosed; Noncompressible CRITICAL FINDINGS - Reported to: TYLER MANUEL - 06/24/25 - 10:51AM - DVT [facility] Vascular Lab is accredited with the[facility] Commission for the Accreditation of Vascular Laboratories (ICAVL) Prepared and Electronically Authenticated Prince Yordan Confirmed 06/24/2025 15:34 us Issac Rico MD US ORDERABLES Final Result * US DOPPLER VENOUS ARM BILATERAL (06/24/2025 11:03 AM CDT) Anatomical Region Laterality Modality Upper Extremity Ultrasound 06/24/2025 10:1 1 AM CDT Narrative 06/24/2025 3:26 PM CDT [facility] Noninvasive Vascular Laboratory [address] [place] [address] Noninvasive Vascular Lab Venous Exam Complete Upper Extremity Duplex Patient: Isaac Franklin Study ID: US DOPPLER VENOU Gender: M : 1960 Age: 65 Room: Height: Weight: BSA: Pt status: Inpatient Study Date: 06/24/2025 Study Time: 10:11:59 AM BSA: Ordering: Issac Rico Interpreting:Prince Yordan Mail Officer: EDIE Indications: Dvt. Summary Impression: 1. No evidence of deep venous thrombosis involving the veins of the right upper extremity, veins of the left upper extremity. 2. Study demonstrates superficial vein thrombosis involving the the right basilic vein and the right cephalic vein. Study data: Bilateral upper extremity venous duplex. Doppler flow study including spectral analysis, color and alves scale imaging. Location: Bedside. Patient status: Inpatient. Portable. Study status: STAT. Procedure: A vascular evaluation was performed. Image quality was good. The study was technically limited due to casts or medical dressings and IV lines or catheters. Venous flow and imaging: - Right internal jugular Patent; Normal phasicity; spontaneous; normal augmentation - Right subclavian Patent; Normal phasicity; spontaneous; normal augmentation - Right axillary Patent; Normal phasicity; spontaneous; compressible; normal augmentation - Right brachial Patent; Normal phasicity; spontaneous; compressible; normal augmentation - Right cephalic Totally thrombosed; Noncompressible Acute - Right basilic Totally thrombosed; Noncompressible Acute - Right radial Patent; Compressible - Right ulnar Patent; Compressible - Left internal jugular Patent; Normal phasicity; spontaneous; normal augmentation - Left subclavian Patent; Normal phasicity; spontaneous; normal augmentation - Left axillary Patent; Normal phasicity; spontaneous; compressible; normal augmentation - Left brachial Patent; Normal phasicity; spontaneous; compressible; normal augmentation - Left cephalic Patent; Compressible - Left basilic Patent; Compressible - Left radial Patent; Compressible - Left ulnar Patent; Compressible CRITICAL FINDINGS - Reported to: TYLER MANUEL - 06/24/25 - 10:51 AM - SVT [facility] Vascular Lab is accredited with the Intersocietal Commission for the Accreditation of Vascular Laboratories (ICAVL) Prepared and Electronically Authenticated Prince Elysia Farr 06/24/2025 15:26 Procedure Note Prince Farr MD - 06/24/2025 [facility] Noninvasive Vascular Laboratory [facility] [place] [address] Noninvasive Vascular Lab Venous Exam Complete Upper Extremity Duplex Patient: Isaac Franklin Study ID: US DOPPLER VENOU Gender: M : 1960 Age: 65 Room: Height: Weight: BSA: Pt status: Inpatient Study Date: 06/24/2025 Study Time: 10:11:59 AM BSA: Ordering: Issac Rico Interpreting:Prince Yordan Mail Officer: EDIE Indications: Dvt. Summary Impression: 1. No evidence of deep venous thrombosis involving the veins of theright upper extremity, veins of the left upper extremity. 2. Study demonstrates superficial vein thrombosis involving the theright basilic vein and the right cephalic vein. Study data: Bilateral upper extremity venous duplex. Doppler flowstudy including spectral analysis, color and alves scale imaging. Location: Bedside. Patient status: Inpatient. Portable. Study status: STAT. Procedure: A vascular evaluation was performed. Image quality was good.The study was technically limited due to casts or medical dressings and IVlines or catheters. Venous flow and imaging: - Right internal jugular Patent; Normal phasicity; spontaneous; normal augmentation - Right subclavian Patent; Normal phasicity; spontaneous; normalaugmentation - Right axillary Patent; Normal phasicity; spontaneous; compressible;normal augmentation - Right brachial Patent; Normal phasicity; spontaneous; compressible;normal augmentation - Right cephalic Totally thrombosed; Noncompressible Acute - Right basilic Totally thrombosed; Noncompressible Acute - Right radial Patent; Compressible - Right ulnar Patent; Compressible - Left internal jugular Patent; Normal phasicity; spontaneous; normal augmentation - Left subclavian Patent; Normal phasicity; spontaneous; normalaugmentation - Left axillary Patent; Normal phasicity; spontaneous; compressible;normal augmentation - Left brachial Patent; Normal phasicity; spontaneous; compressible;normal augmentation - Left cephalic Patent; Compressible - Left basilic Patent; Compressible - Left radial Patent; Compressible - Left ulnar Patent; Compressible CRITICAL FINDINGS - Reported to: TYLER Kathleen 06/24/25 - 10:51 AM - SVT [facility] Vascular Lab is accredited with theIntersocietal Commission for the Accreditation of Vascular Laboratories (ICAVL) Prepared and Electronically Authenticated Prince Elysia Farr 06/24/2025 15:26 us Issac Rico MD ORDERABLES Final Result * (ABNORMAL) POC GLUCOSE (06/24/2025 7:36 AM CDT) GLUCOSE POC 200(H) 74 - 99 mg/dL 06/24/2025 7:36 AM CDT [facility] SPECIMEN SOURCE, GLUCOSE POC Capillary 06/24/2025 7:36 AM CDT [facility] Blood, whole 06/24/2025 7:36 AM CDT 06/24/2025 7:46 AM CDT us Issac Rico MD POINT OF CARE TESTING Final Resu lt [facility] CLIA # [id number] [address] [place] [address] * EKG 12-LEAD (06/24/2025 4:46 AM CDT) 06/24/2025 4:46 AM CDT Narrative INTERFACE SYSTEM - 06/24/2025 6:55 [place] [address] Test Date: 2025-06-24 Pat Name: ISAAC NOEMI Department: 12 Room: [address] [place] [address] Gender: Male Compliance Representative: [id number] : 1960 Requested By: Order Number: [id number] Terra MD: Tri Price Measurements Intervals Malin Rate: 95 P: 0 GA: 0 QRS: 4 QRSD: 80 T: 86 QT: 402 QTc: 505 Interpretive Statements Undetermined rhythm ARtifact Abnormal ECG Electronically Signed On 06-24-2025 18:55:45 CDT by Tri Price Procedure Note Tri Price MD - 06/24/[address] [address] Test Date: 2025-06-24 Pat Name: ISAAC FRANKLIN Department: 12 Room: [address] [place] [address] Gender: Male Compliance Representative: [id number] : 1960 Requested By: Order Number: [id number] Reading MD: Tri Price Measurements Intervals Malin Rate: 95 P: 0 GA: 0 QRS: 4 QRSD: 80 T: 86 QT: 402 QTc: 505 Interpretive Statements Undetermined rhythm ARtifact Abnormal ECG Electronically Signed On 06-24-2025 18:55:45 CDT by Tri Price us Ebony Lopez MD ECG ORDERABLES Final Result Performing Organization Address [facility] de Phone Number INTERFACE SYSTEM Refer to clinic/hospital department * (ABNORMAL) POC GLUCOSE (06/24/2025 4:13 AM CDT) [facility] GLUCOSE POC 201(H) 74 - 99 mg/dL 06/24/2025 4:13 AM CDT [facility] SPECIMEN SOURCE, GLUCOSE POC Capillary 06/24/2025 4:13 AM CDT [facility] Blood, whole 06/24/2025 4:13 AM CDT 06/24/2025 5:16 AM CDT us Issac Rico MD POINT OF CARE TESTING Final Resu lt Performing Organization Address [facility] de Phone Number [facility] CLIA # [id number] [address] [place] [phone] * PERIPHERAL BLOOD SMEAR PATHOLOGY INTERP (06/24/2025 3:38 AM CDT) [facility] PERIPHERAL BLOOD SMEAR INTERP See Interpretation Below 06/25/2025 3:29 PM CDT [facility] Comment: The red cells are normocytic and normochromic and do not show a significant increase in anisocytosis or poikilocytosis. The leukocytes appear as stated in the differential. The circulating granulocytes do not show dysplastic features. They show toxic granulations. Significant numbers of left shifted myeloid precursors are not seen. Circulating blasts are not identified. Platelets are increased in number and overall show normal morphology. Rare small platelet clumps are present. Although not entirely specific, a reactive process is favored. Clinical correlation and follow-up is recommended. If the patient's thrombocytosis persists, heme-onc consultation could be considered. INTERPRETED BY: Robinson Brannon MD 06/25/2025 3:29 PM CDT [facility] Blood Venipuncture / Unknown 06/24/2025 3:38 AM CDT 06/24/2025 4:15 AM CDT us Issac Rico MD HEMATOLOGY ORDERABLES Final Resu lt [facility] CLIA # [id number] [address] [place] [address] * (ABNORMAL) BASIC METABOLIC PANEL (06/24/2025 3:38 AM CDT) SODIUM 141 136 - 145 mmol/L 06/24/2025 4:55 AM CDT [facility] POTASSIUM 3.7 3.5 - 5.1 mmol/L 06/24/2025 4:55 AM T [facility] CHLORIDE 103 98 - 107 mmol/L 06/24/2025 4:55 AM T [facility] CO2 24 22 - 29 mmol/L 06/24/2025 4:55 AM T [facility] CALCIUM 9.3 8.8 - 10.2 mg/dL 06/24/2025 4:55 AM CDT [facility] BUN 30(H) 8 - 23 mg/dL 06/24/2025 4:55 AM T [facility] CREATININE 0.70 0.67 - 1.17 mg/dL 06/24/2025 4:55 AM T [facility] GLUCOSE 185(H) 74 - 99 mg/dL 06/24/2025 4:55 AM T [facility] GFR >60 >=60 mL/min/1.7 3 sq meter 06/24/2025 4:55 AM T [facility] Comment:eGFR calculated with 2020 CKD-EPI equation. Vegetarian diet, extremely high or low muscle mass, and may affect results. Cystatin C with Glomerular Filtration Rate is a suitable alternative for these patients. ANION GAP 14 9 - 20 mmol/L 06/24/2025 4:55 AM T [facility] Blood Venipuncture / Unknown 06/24/2025 3:38 AM CDT 06/24/2025 4:15 AM CDT us Issac Rico MD CHEMISTRY ORDERABLES Final Resul t [facility] CLIA # [id number] [address] [place] [address] * (ABNORMAL) CBC WITH DIFFERENTIAL (06/24/2025 3:38 AM CDT) WBC 29.2(H) 4.8 - 10.8 K/uL 06/24/2025 4:27 AM T [facility] RBC 3.54(L) 4.60 - 6.20 M/uL 06/24/2025 4:27 AM T [facility] HEMOGLOBIN 10.8(L) 14.0 - 18.0 g/dL 06/24/2025 4:27 AM T [facility] HEMATOCRIT 33.5(L) 41.0 - 53.0 % 06/24/2025 4:27 AM T [facility] MCV 94.6 84.0 - 103.0 fL 06/24/2025 4:27 AM T [facility] MCH 30.5 27.0 - 34.0 pg 06/24/2025 4:27 AM T [facility] MCHC 32.2 30.0 - 35.0 g/dL 06/24/2025 4:27 AM T [facility] PLATELETS 646(H) 140 - 440 K/uL 06/24/2025 4:27 AM T [facility] MPV 10.4 8.9 - 12.8 fL 06/24/2025 4:27 AM [facility] RDW 13.2 11.0 - 14.5 % 06/24/2025 4:27 AM [facility] RDW-STDEV 46.2 37.0 - 54.0 fL 06/24/2025 4:27 AM [facility] NEUTROPHILS 82(H) 42 - 75 % 06/24/2025 4:27 AM [facility] LYMPHOCYTES 9(L) 24 - 44 % 06/24/2025 4:27 AM [facility] MONOCYTES 5 2 - 10 % 06/24/2025 4:27 AM [facility] EOSINOPHILS 2 0 - 7 % 06/24/2025 4:27 AM [facility] BASOPHILS 1 0 - 1 % 06/24/2025 4:27 AM [facility] IMMATURE GRANULOCYTES 2 0 - 2 % 06/24/2025 4:27 AM [facility] NEUTROPHIL ABSOLUTE 23.96(H) 2.00 - 8.00 K/uL 06/24/2025 4:27 AM [facility] LYMPHOCYTE ABSOLUTE 2.60 1.20 - 4.00 K/uL 06/24/2025 4:27 AM [facility] MONOCYTE ABSOLUTE 1.44(H) 0.10 - 0.60 K/uL 06/24/2025 4:27 AM [facility] EOSINOPHIL ABSOLUTE 0.58 0.00 - 0.70 K/uL 06/24/2025 4:27 AM [facility] BASOPHILS ABSOLUTE 0.16 0.00 - 0.20 K/uL 06/24/2025 4:27 AM [facility] IMMATURE GRANULOCYTES ABSOLUTE 0.45(H) 0.00 - 0.10 K/uL 06/24/2025 4:27 AM [facility] SMEAR REVIEWED: NA - Not Applicable 06/24/2025 4:27 AM [facility] Blood Venipuncture / Unknown 06/24/2025 3:38 AM CDT 06/24/2025 4:15 AM CDT Issac Rico MD HEMATOLOGY ORDERABLES Final Resu lt Performing Organization Address [facility] Co de Phone Number [facility] CLIA # [id number] [address] [phone] * UNFRACTIONATED HEPARIN MONITORING (06/24/2025 3:38 AM CDT) Pathologist [facility] [place] ANTI-XA UNFRAC HEP 0.21 See Interpretation IU/mL 06/24/2025 4:30 AM CDT [facility] Blood Venipuncture / Unknown 06/24/2025 3:38 AM CDT 06/24/2025 4:15 AM CDT Narrative [facility] - 06/24/2025 4:30 AM CDT Therapeutic Range: PT/DVT Heparin Protocol 0.3 - 0.7 IU/ml Cardiac Heparin Protocol 0.3 - 0.6 IU/ml The reference range for this test is specific to the anticoagulant and is not appropriate for monitoring patients on a DOAC protocol. us Issac Rico MD HEMATOLOGY ORDERABLES Final Resu lt Performing Organization Address [facility] Co de Phone Number [facility] CLIA # [id number] [address] [address] * (ABNORMAL) POC GLUCOSE (06/24/2025 12:03 AM CDT) Pathologist [facility] [place] GLUCOSE POC 182(H) 74 - 99 mg/dL 06/24/2025 12:03 AM CDT [facility] SPECIMEN SOURCE, GLUCOSE POC Capillary 06/24/2025 12:03 AM CDT [facility] Blood, whole 06/24/2025 12:0 3 AM CDT 06/24/2025 12:14 AM CDT us Issac Rico MD POINT OF CARE TESTING Final Resu lt Performing Organization Address [facility] Co de Phone Number [facility] CLIA # [id number] [address] [address] * UNFRACTIONATED HEPARIN MONITORING (06/23/2025 8:29 PM CDT) Pathologist [facility] [place] ANTI-XA UNFRAC HEP 0.12 See Interpretation IU/mL 06/23/2025 9:18 PM CDT [facility] Blood Venipuncture / Unknown 06/23/2025 8:29 PM CDT 06/23/2025 9:04 PM CDT Narrative [facility] - 06/23/2025 9:18 PM CDT Therapeutic Range: PT/DVT Heparin Protocol 0.3 - 0.7 IU/ml Cardiac Heparin Protocol 0.3 - 0.6 IU/ml The reference range for this test is specific to the anticoagulant and is not appropriate for monitoring patients on a DOAC protocol. us Issac Rico MD HEMATOLOGY ORDERABLES Final Resu lt Performing Organization Address [facility] de Phone Number [facility] CLIA # [id number] [address] [address] * (ABNORMAL) POC GLUCOSE (06/23/2025 8:28 PM CDT) Pathologist [facility] [place] GLUCOSE POC 163(H) 74 - 99 mg/dL 06/23/2025 8:28 PM CDT [facility] SPECIMEN SOURCE, GLUCOSE POC Venous 06/23/2025 8:28 PM CDT [facility] Blood, whole 06/23/2025 8:28 PM CDT 06/23/2025 8:36 PM CDT Issac Rico MD POINT OF CARE TESTING Final Resu lt Performing Organization Address [facility] Co de Phone Number [facility] CLIA # [id number] [address] [phone] * (ABNORMAL) POC GLUCOSE (06/23/2025 5:05 PM CDT) [facility] GLUCOSE POC 158(H) 74 - 99 mg/dL 06/23/2025 5:05 PM CDT [facility] SPECIMEN SOURCE, GLUCOSE POC Capillary 06/23/2025 5:05 PM CDT [facility] Blood, whole 06/23/2025 5:05 PM CDT 06/23/2025 5:23 PM CDT Issac Rico MD POINT OF CARE TESTING Final Resu Performing Organization Address [facility] Co de Phone Number [facility] CLIA # [id number] [address] [address] * UNFRACTIONATED HEPARIN MONITORING (06/23/2025 1:38 PM CDT) [facility] ANTI-XA UNFRAC HEP <0.10 See Interpretation IU/mL 06/23/2025 2:22 PM CDT [facility] Blood Venipuncture / Unknown 06/23/2025 1:38 PM CDT 06/23/2025 1:53 PM CDT Narrative [facility] - 06/23/2025 2:22 PM CDT Therapeutic Range: PT/DVT Heparin Protocol 0.3 - 0.7 IU/ml Cardiac Heparin Protocol 0.3 - 0.6 IU/ml The reference range for this test is specific to the anticoagulant and is not appropriate for monitoring patients on a DOAC protocol. Issac Rico MD HEMATOLOGY ORDERABLES Final Resu lt Performing Organization Address [facility] Co de Phone Number [facility] CLIA # [id number] [address] [address] * (ABNORMAL) POC GLUCOSE (06/23/2025 1:00 PM CDT) Pathologist [facility] [place] GLUCOSE POC 203(H) 74 - 99 mg/dL 06/23/2025 1:00 PM CDT [facility] SPECIMEN SOURCE, GLUCOSE POC Capillary 06/23/2025 1:00 PM CDT [facility] Blood, whole 06/23/2025 1:00 PM CDT 06/23/2025 1:11 PM CDT Issac Rico MD POINT OF CARE TESTING Final Resu lt Performing Organization Address [facility] Co de Phone Number [facility] CLIA # [id number] [address] [address] * UNFRACTIONATED HEPARIN MONITORING (06/23/2025 10:41 AM CDT) [facility] ANTI-XA UNFRAC HEP <0.10 See Interpretation IU/mL 06/23/2025 11:14 AM CDT [facility] Blood Venipuncture / Unknown 06/23/2025 10:41 AM CDT 06/23/2025 10:53 AM CDT Narrative [facility] - 06/23/2025 11:14 AM CDT Therapeutic Range: PT/DVT Heparin Protocol 0.3 - 0.7 IU/ml Cardiac Heparin Protocol 0.3 - 0.6 IU/ml The reference range for this test is specific to the anticoagulant and is not appropriate for monitoring patients on a DOAC protocol. Rafi Hackett MD HEMATOLOGY ORDERABLES Fi nal Result Performing Organization Address [facility] Co de Phone Number [facility] CLIA # [id number] [address] [address] * (ABNORMAL) POC GLUCOSE (06/23/2025 9:26 AM CDT) GLUCOSE POC 196(H) 74 - 99 mg/dL 06/23/2025 9:26 AM CDT [facility] SPECIMEN SOURCE, GLUCOSE POC Capillary 06/23/2025 9:26 AM CDT [facility] Blood, whole 06/23/2025 9:26 AM CDT 06/23/2025 10:55 AM CDT us Issac Rico MD POINT OF CARE TESTING Final Resu lt Performing Organization Address [facility] de Phone Number [facility] CLIA # [id number] [address] [address] * EKG 12-LEAD (06/23/2025 5:17 AM CDT) 06/23/2025 5:17 AM CDT Narrative INTERFACE SYSTEM - 06/23/2025 5:40 PM CDT [address] [address] Test Date: 2025-06-23 Pat Name: ISAAC FRANKLIN Department: 12 Room: [address] [place] [address] Gender: Male Compliance Representative: [id number] : 1960 Requested By: Order Number: [id number] Terra MD: Tena Su Measurements Intervals Malin Rate: 79 P: 0 GA: 0 QRS: -37 QRSD: 86 T: 102 QT: 400 QTc: 458 Interpretive Statements Atrial fibrillation Left axis deviation Low voltage QRS Inferior infarct, age undetermined Cannot rule out Anterior infarct, age undetermined Abnormal ECG Electronically Signed On 06-23-2025 17:40:57 CDT by Tena Su Procedure Note Tena Su, DO - 06/23/[address] [address] Test Date: 2025-06-23 Pat Name: ISAAC FRANKLIN Department: 12 Room: [address] [place] [address] Gender: Male Compliance Representative: [id number] : 1960 Requested By: Order Number: [id number] Reading MD: Tena Su Measurements Intervals Malin Rate: 79 P: 0 GA: 0 QRS: -37 QRSD: 86 T: 102 QT: 400 QTc: 458 Interpretive Statements Atrial fibrillation Left axis deviation Low voltage QRS Inferior infarct, age undetermined Cannot rule out Anterior infarct, age undetermined Abnormal ECG Electronically Signed On 06-23-2025 17:40:57 CDT by Tena Su us Ebony Lopez MD ECG ORDERABLES Final Result INTERFACE SYSTEM Refer to clinic/hospital department * (ABNORMAL) POC GLUCOSE (06/23/2025 4:48 AM CDT) [facility] GLUCOSE POC 203(H) 74 - 99 mg/dL 06/23/2025 4:48 AM CDT [facility] SPECIMEN SOURCE, GLUCOSE POC Capillary 06/23/2025 4:48 AM CDT [facility] Blood, whole 06/23/2025 4:48 AM CDT 06/23/2025 5:02 AM CDT us Rafi Hackett MD POINT OF CARE TESTING Fi nal Result Performing Organization Address City/[facility]/ZIP Co de Phone Number [facility] CLIA # [id number] [address] [place] [address] * UNFRACTIONATED HEPARIN MONITORING (06/23/2025 3:47 AM CDT) [facility] ANTI-XA UNFRAC HEP <0.10 See Interpretation IU/mL 06/23/2025 4:13 AM CDT [facility] Blood Venipuncture / Unknown 06/23/2025 3:47 AM CDT 06/23/2025 3:55 AM CDT Narrative [facility] - 06/23/2025 4:13 AM CDT Therapeutic Range: PT/DVT Heparin Protocol 0.3 - 0.7 IU/ml Cardiac Heparin Protocol 0.3 - 0.6 IU/ml The reference range for this test is specific to the anticoagulant and is not appropriate for monitoring patients on a DOAC protocol. Rafi Hackett MD HEMATOLOGY ORDERABLES Fi nal Result Performing Organization Address City/[facility]/ZIP Co de Phone Number [facility] CLIA # [id number] [address] [address] * PHOSPHORUS (06/23/2025 2:49 AM CDT) PHOSPHORUS 4.0 2.5 - 4.5 mg/dL 06/23/2025 3:39 AM CDT [facility] Blood Venipuncture / Unknown 06/23/2025 2:49 AM CDT 06/23/2025 2:55 AM CDT Love Gonzalez NP CHEMISTRY ORDERABLES Final Result [facility] CLIA # [id number] [address] [address] * MAGNESIUM LEVEL (06/23/2025 2:49 AM CDT) MAGNESIUM 2.3 1.6 - 2.4 mg/dL 06/23/2025 3:39 AM CDT [facility] Blood Venipuncture / Unknown 06/23/2025 2:49 AM CDT 06/23/2025 2:55 AM CDT Love Gonzalez NP CHEMISTRY ORDERABLES Final Result [facility] CLIA # [id number] [address] [place] [address] * (ABNORMAL) COMPREHENSIVE METABOLIC PANEL (06/23/2025 2:49 AM CDT) Pathologist [facility] SODIUM 140 136 - 145 mmol/L 06/23/2025 3:39 AM CDT [facility] POTASSIUM 3.6 3.5 - 5.1 mmol/L 06/23/2025 3:39 AM CDT [facility] CHLORIDE 104 98 - 107 mmol/L 06/23/2025 3:39 AM CDT [facility] CO2 23 22 - 29 mmol/L 06/23/2025 3:39 AM CDT [facility] CALCIUM 8.8 8.8 - 10.2 mg/dL 06/23/2025 3:39 AM CDT [facility] BUN 28(H) 8 - 23 mg/dL 06/23/2025 3:39 AM CDT [facility] CREATININE 0.76 0.67 - 1.17 mg/dL 06/23/2025 3:39 AM CDT [facility] GLUCOSE 195(H) 74 - 99 mg/dL 06/23/2025 3:39 AM CDT [facility] TOTAL PROTEIN 6.9 6.4 - 8.3 g/dL 06/23/2025 3:39 AM CDT [facility] ALBUMIN 2.9(L) 3.5 - 5.2 g/dL 06/23/2025 3:39 AM CDT [facility] BILIRUBIN TOTAL 0.7 0.0 - 1.0 mg/dL 06/23/2025 3:39 AM CDT [facility] ALKALINE PHOSPHATASE 153(H) 40 - 129 U/L 06/23/2025 3:39 AM CDT [facility] AST 24 10 - 50 U/L 06/23/2025 3:39 AM CDT [facility] ALT 23 <=50 U/L 06/23/2025 3:39 AM CDT [facility] GFR >60 >=60 mL/min/1.7 3 sq meter 06/23/2025 3:39 AM CDT [facility] Comment:eGFR calculated with 2020 CKD-EPI equation. Vegetarian diet, extremely high or low muscle mass, and may affect results. Cystatin C with Glomerular Filtration Rate is a suitable alternative for these patients. ANION GAP 13 9 - 20 mmol/L 06/23/2025 3:39 AM T [facility] Blood Venipuncture / Unknown 06/23/2025 2:49 AM CDT 06/23/2025 2:55 AM CDT Love Gonzalez BOTTOM SAW OPERATOR CHEMISTRY ORDERABLES Final Result [facility] CLIA # [id number] [address] [place] [address] * (ABNORMAL) CBC WITH DIFFERENTIAL (06/23/2025 2:49 AM CDT) WBC 21.7(H) 4.8 - 10.8 K/uL 06/23/2025 2:57 AM CDT [facility] RBC 3.16(L) 4.60 - 6.20 M/uL 06/23/2025 2:57 AM CDT [facility] HEMOGLOBIN 9.9(L) 14.0 - 18.0 g/dL 06/23/2025 2:57 AM CDT [facility] HEMATOCRIT 30.1(L) 41.0 - 53.0 % 06/23/2025 2:57 AM CDT [facility] MCV 95.3 84.0 - 103.0 fL 06/23/2025 2:57 AM [facility] MCH 31.3 27.0 - 34.0 pg 06/23/2025 2:57 AM [facility] MCHC 32.9 30.0 - 35.0 g/dL 06/23/2025 2:57 AM [facility] PLATELETS 462(H) 140 - 440 K/uL 06/23/2025 2:57 AM [facility] MPV 10.1 8.9 - 12.8 fL 06/23/2025 2:57 AM [facility] RDW 13.2 11.0 - 14.5 % 06/23/2025 2:57 AM [facility] RDW-STDEV 45.8 37.0 - 54.0 fL 06/23/2025 2:57 AM [facility] NEUTROPHILS 80(H) 42 - 75 % 06/23/2025 2:57 AM [facility] LYMPHOCYTES 10(L) 24 - 44 % 06/23/2025 2:57 AM [facility] MONOCYTES 6 2 - 10 % 06/23/2025 2:57 AM [facility] EOSINOPHILS 2 0 - 7 % 06/23/2025 2:57 AM [facility] BASOPHILS 1 0 - 1 % 06/23/2025 2:57 AM [facility] IMMATURE GRANULOCYTES 2 0 - 2 % 06/23/2025 2:57 AM [facility] NEUTROPHIL ABSOLUTE 17.42(H) 2.00 - 8.00 K/uL 06/23/2025 2:57 AM [facility] LYMPHOCYTE ABSOLUTE 2.19 1.20 - 4.00 K/uL 06/23/2025 2:57 AM [facility] MONOCYTE ABSOLUTE 1.25(H) 0.10 - 0.60 K/uL 06/23/2025 2:57 AM [facility] EOSINOPHIL ABSOLUTE 0.36 0.00 - 0.70 K/uL 06/23/2025 2:57 AM CDT [facility] BASOPHILS ABSOLUTE 0.11 0.00 - 0.20 K/uL 06/23/2025 2:57 AM CDT [facility] IMMATURE GRANULOCYTES ABSOLUTE 0.32(H) 0.00 - 0.10 K/uL 06/23/2025 2:57 AM CDT [facility] SMEAR REVIEWED: NA - Not Applicable 06/23/2025 2:57 AM CDT [facility] Blood Venipuncture / Unknown 06/23/2025 2:49 AM CDT 06/23/2025 2:54 AM CDT us Love Gonzalez NP HEMATOLOGY ORDERABLES Final Result Performing Organization Address [facility] Co de Phone Number [facility] CLIA # [id number] [address] [address] * (ABNORMAL) POC GLUCOSE (06/22/2025 11:17 PM CDT) GLUCOSE POC 165(H) 74 - 99 mg/dL 06/22/2025 11:17 PM CDT [facility] SPECIMEN SOURCE, GLUCOSE POC Capillary 06/22/2025 11:17 PM CDT [facility] Blood, whole 06/22/2025 11:1 7 PM CDT 06/22/2025 11:32 PM CDT us Rafi Hackett MD POINT OF CARE TESTING Fi nal Result Performing Organization Address City/[facility]/ZIP Co de Phone Number [facility] CLIA # [id number] [address] [address] * (ABNORMAL) POC GLUCOSE (06/22/2025 9:44 PM CDT) GLUCOSE POC 181(H) 74 - 99 mg/dL 06/22/2025 9:44 PM CDT [facility] SPECIMEN SOURCE, GLUCOSE POC Capillary 06/22/2025 9:44 PM CDT [facility] Blood, whole 06/22/2025 9:44 PM CDT 06/22/2025 10:45 PM CDT Rafi Hackett MD POINT OF CARE TESTING Fi nal Result Performing Organization Address [facility] Co de Phone Number [facility] CLIA # [id number] [address] [address] * (ABNORMAL) PTT (06/22/2025 6:33 PM CDT) Pathologist [facility] PTT 23.3(L) 24.8 - 37.2 seconds 06/22/2025 7:11 PM CDT [facility] Blood Venipuncture / Unknown 06/22/2025 6:33 PM CDT 06/22/2025 6:41 PM CDT Narrative [facility] - 06/22/2025 7:11 PM CDT Therapeutic Range: Hi-level PE/DVT heparin protocol 80.1 - 95.0 sec Lo-level PE/DVT heparin protocol 70.1 - 85.0 sec Cardiac Heparin Protocol 70.1 - 100.0 sec Prince Yordan SANTANA HEMATOLOGY ORDERABLES Final Resu lt Performing Organization Address [facility] Co de Phone Number [facility] CLIA # [id number] [address] [address] * (ABNORMAL) POC GLUCOSE (06/22/2025 5:00 PM CDT) GLUCOSE POC 154(H) 74 - 99 mg/dL 06/22/2025 5:00 PM CDT [facility] SPECIMEN SOURCE, GLUCOSE POC Capillary 06/22/2025 5:00 PM CDT [facility] Blood, whole 06/22/2025 5:00 PM CDT 06/22/2025 6:40 PM CDT us Rafi Hackett MD POINT OF CARE TESTING Fi nal Result Performing Organization Address [facility] Co de Phone Number [facility] CLIA # [id number] [address] [address] * (ABNORMAL) POC GLUCOSE (06/22/2025 12:23 PM CDT) GLUCOSE POC 149(H) 74 - 99 mg/dL 06/22/2025 12:23 PM CDT [facility] SPECIMEN SOURCE, GLUCOSE POC Capillary 06/22/2025 12:23 PM CDT [facility] Blood, whole 06/22/2025 12:2 3 PM CDT 06/22/2025 12:29 PM CDT us Ebony Lopez MD POINT OF CARE TESTING Final Resu lt Performing Organization Address [facility] Co de Phone Number [facility] CLIA # [id number] [address] [address] * EKG 12-LEAD (06/22/2025 11:48 AM CDT) 06/22/2025 11:4 8 AM CDT Narrative INTERFACE SYSTEM - 06/23/2025 5:35 PM [address] [address] Test Date: 2025-06-22 Pat Name: ISAAC FRANKLIN Department: 12 Room: [address] [place] [address] Gender: Male Compliance Representative: [id number] : 1960 Requested By: Order Number: [id number] Reading MD: Tena Su Measurements Intervals Malin Rate: 94 P: 0 GA: 0 QRS: -12 QRSD: 94 T: 6 QT: 456 QTc: 570 Interpretive Statements Atrial fibrillation Cannot rule out Inferior infarct, age undetermined Abnormal ECG Electronically Signed On 06-23-2025 17:35:17 CDT by Tena Su Procedure Note Tena Su, DO - 06/23/2025 [place] [id number] Test Date: 2025-06-22 Pat Name: ISAAC MURDOCKKEIRA Department: 12 Room: [address] [place] [address] Gender: Male Compliance Representative: [id number] : 1960 Requested By: Order Number: [id number] Reading MD: Tena Su Measurements Intervals Malin Rate: 94 P: 0 GA: 0 QRS: -12 QRSD: 94 T: 6 QT: 456 QTc: 570 Interpretive Statements Atrial fibrillation Cannot rule out Inferior infarct, age undetermined Abnormal ECG Electronically Signed On 06-23-2025 17:35:17 CDT by Tena Su us Ebony Lopez MD ECG ORDERABLES Final Result Performing Organization Address City/State/[facility] Co de Phone Number INTERFACE SYSTEM Refer to clinic/hospital department * EKG 12-LEAD (06/22/2025 11:45 AM CDT) 06/22/2025 11:4 5 AM CDT Narrative INTERFACE SYSTEM - 06/23/2025 5:35 PM [address]T [address] [address] Test Date: 2025-06-22 Pat Name: ISAAC NOEMI Department: 12 Room: [address] [place] [address] Gender: Male Compliance Representative: [id number] : 1960 Requested By: Order Number: [id number] Reading MD: Tena Su Measurements Intervals Malin Rate: 75 P: 56 GA: 142 QRS: -13 QRSD: 100 T: -39 QT: 436 QTc: 486 Interpretive Statements Sinus rhythm with premature supraventricular complexes Cannot rule out Inferior infarct, age undetermined Abnormal ECG Electronically Signed On 06-23-2025 17:35:13 CDT by Tena Su Procedure Note Tena Su, DO - 06/23/2025 [facility] [address] [place] [address] Test Date: 2025-06-22 Pat Name: ISAAC FRANKLIN Department: 12 Room: [address] [place] [address] Gender: Male Compliance Representative: [id number] : 1960 Requested By: Order Number: [id number] Reading MD: Tena Su Measurements Intervals Malin Rate: 75 P: 56 GA: 142 QRS: -13 QRSD: 100 T: -39 QT: 436 QTc: 486 Interpretive Statements Sinus rhythm with premature supraventricular complexes Cannot rule out Inferior infarct, age undetermined Abnormal ECG Electronically Signed On 06-23-2025 17:35:13 CDT by Tena Su us Prince Yordan SANTANA ECG ORDERABLES Final Result INTERFACE SYSTEM Refer to clinic/hospital department * (ABNORMAL) POC GLUCOSE (06/22/2025 7:24 AM CDT) GLUCOSE POC 136(H) 74 - 99 mg/dL 06/22/2025 7:24 AM CDT [facility] SPECIMEN SOURCE, GLUCOSE POC Capillary 06/22/2025 7:24 AM CDT [facility] Blood, whole 06/22/2025 7:24 AM CDT 06/22/2025 7:31 AM CDT us Ebony Lopez MD POINT OF CARE TESTING Final Resu lt [facility] CLIA # [id number] [address] [facility] [place] [address] * XR ABDOMEN FOR FEEDING TUBE 1 VW (06/22/2025 6:25 AM CDT) Anatomical Region Laterality Modality Abdomen Computed Radiogr aphy 06/22/2025 6:25 AM CDT Narrative 06/22/2025 6:31 AM CDT XR ABDOMEN FOR FEEDING TUBE 1 VW Reason For Exam: Check Tube Placement. Diagnosis: ST elevation myocardial infarction (STEMI), unspecified artery; Cardiac arrest with ventricular fibrillation (CMS/HCC); Cardiac arrest with ventricular fibrillation (CMS/HCC); CHB (complete heart block); Laboratory test; Patient receiving extracorporeal membrane oxygenation (ECMO); Ischemic dilated cardiomyopathy (CMS/HCC); Ischemic dilated cardiomyopathy (CMS/HCC). COMPARISON: None FINDINGS: Enteric tube tip projects over the expected location of the mid to distal stomach Procedure Note Daljit Galindo MD - 06/22/2025 XR ABDOMEN FOR FEEDING TUBE 1 VW Reason For Exam: Check Tube Placement. Diagnosis: ST elevation myocardial infarction (STEMI), unspecified artery; Cardiac arrest with ventricular fibrillation (CMS/HCC); Cardiac arrest with ventricular fibrillation (CMS/HCC); CHB (complete heart block); Laboratory test; Patient receiving extracorporeal membrane oxygenation (ECMO); Ischemic dilated cardiomyopathy (CMS/HCC); Ischemic dilated cardiomyopathy (CMS/HCC). COMPARISON: None FINDINGS: Enteric tube tip projects over the expected location of the mid to distal stomach us Amaya Nickerson MD DIAGNOSTIC IMAGING ORDERABL ES Final Result * EKG 12-LEAD (06/22/2025 5:29 AM CDT) 06/22/2025 5:29 AM CDT Narrative INTERFACE SYSTEM - 06/23/2025 5:30 PM CDT [address] [address] Test Date: 2025-06-22 Pat Name: ISAAC FRANKLIN Department: 12 Room: [address] [place] [address] Gender: Male Compliance Representative: [id number] : 1960 Requested By: Order Number: [id number] Terra MD: Tena Su Measurements Intervals Malin Rate: 68 P: 60 GA: 134 QRS: 2 QRSD: 98 T: 58 QT: 462 QTc: 491 Interpretive Statements Normal sinus rhythm T wave abnormality, consider lateral ischemia Abnormal ECG Electronically Signed On 06-23-2025 17:30:29 CDT by Tena Su Procedure Note Tena Su, DO - 06/23/2025 [facility] [address] [place] [address] Test Date: 2025-06-22 Pat Name: ISAAC FRANKLIN Department: 12 Room: [address] [place] [address] Gender: Male Compliance Representative: [id number] : 1960 Requested By: Order Number: [id number] Reading MD: Tena Su Measurements Intervals Malin Rate: 68 P: 60 GA: 134 QRS: 2 QRSD: 98 T: 58 QT: 462 QTc: 491 Interpretive Statements Normal sinus rhythm T wave abnormality, consider lateral ischemia Abnormal ECG Electronically Signed On 06-23-2025 17:30:29 CDT by Tena Su us Ebony Lopez MD ECG ORDERABLES Final Result INTERFACE SYSTEM Refer to clinic/hospital department * (ABNORMAL) POC GLUCOSE (06/22/2025 4:32 AM CDT) GLUCOSE POC 157(H) 74 - 99 mg/dL 06/22/2025 4:32 AM CDT [facility] SPECIMEN SOURCE, GLUCOSE POC Venous 06/22/2025 4:32 AM CDT [facility] Blood, whole 06/22/2025 4:32 AM CDT 06/22/2025 4:39 AM CDT us Ebony Lopez MD POINT OF CARE TESTING Final Resu lt Performing Organization Address City/[facility]/ZIP Co de Phone Number [facility] CLIA # [id number] [address] [facility] [place] [address] * PHOSPHORUS (06/22/2025 4:30 AM CDT) PHOSPHORUS 3.6 2.5 - 4.5 mg/dL 06/22/2025 5:11 AM CDT [facility] Blood Venipuncture / Unknown 06/22/2025 4:30 AM CDT 06/22/2025 4:35 AM CDT Love Gonzalez BOTTOM SAW OPERATOR CHEMISTRY ORDERABLES Final Result Performing Organization Address [facility] Co de Phone Number [facility] CLIA # [id number] [address] [address] [place] [address] * MAGNESIUM LEVEL (06/22/2025 4:30 AM CDT) MAGNESIUM 2.2 1.6 - 2.4 mg/dL 06/22/2025 5:11 AM CDT [facility] Blood Venipuncture / Unknown 06/22/2025 4:30 AM CDT 06/22/2025 4:35 AM CDT Love Gonzalez BOTTOM SAW OPERATOR CHEMISTRY ORDERABLES Final Result Performing Organization Address [facility] de Phone Number [facility] CLIA # [id number] [address] [address] * (ABNORMAL) COMPREHENSIVE METABOLIC PANEL (06/22/2025 4:30 AM CDT) SODIUM 142 136 - 145 mmol/L 06/22/2025 5:11 AM CDT [facility] POTASSIUM 3.4(L) 3.5 - 5.1 mmol/L 06/22/2025 5:11 AM CDT [facility] CHLORIDE 104 98 - 107 mmol/L 06/22/2025 5:11 AM CDT [facility] CO2 27 22 - 29 mmol/L 06/22/2025 5:11 AM [facility] CALCIUM 8.6(L) 8.8 - 10.2 mg/dL 06/22/2025 5:11 AM [facility] BUN 23 8 - 23 mg/dL 06/22/2025 5:11 AM [facility] CREATININE 0.73 0.67 - 1.17 mg/dL 06/22/2025 5:11 AM [facility] GLUCOSE 175(H) 74 - 99 mg/dL 06/22/2025 5:11 AM [facility] TOTAL PROTEIN 6.5 6.4 - 8.3 g/dL 06/22/2025 5:11 AM [facility] ALBUMIN 3.0(L) 3.5 - 5.2 g/dL 06/22/2025 5:11 AM [facility] BILIRUBIN TOTAL 0.8 0.0 - 1.0 mg/dL 06/22/2025 5:11 AM [facility] ALKALINE PHOSPHATASE 145(H) 40 - 129 U/L 06/22/2025 5:11 AM [facility] AST 22 10 - 50 U/L 06/22/2025 5:11 AM [facility] ALT 22 <=50 U/L 06/22/2025 5:11 AM [facility] GFR >60 >=60 mL/min/1.7 3 sq meter 06/22/2025 5:11 AM [facility] Comment:eGFR calculated with 2020 CKD-EPI equation. Vegetarian diet, extremely high or low muscle mass, and may affect results. Cystatin C with Glomerular Filtration Rate is a suitable alternative for these patients. ANION GAP 11 9 - 20 mmol/L 06/22/2025 5:11 AM [facility] Blood Venipuncture / Unknown 06/22/2025 4:30 AM CDT 06/22/2025 4:35 AM CDT Love Gonzalez NP CHEMISTRY ORDERABLES Final Result [facility] CLIA # [id number] [address] [address] [place] [address] * (ABNORMAL) CBC WITH DIFFERENTIAL (06/22/2025 4:30 AM CDT) [facility] WBC 15.0(H) 4.8 - 10.8 K/uL 06/22/2025 4:48 AM CDT [facility] RBC 2.74(L) 4.60 - 6.20 M/uL 06/22/2025 4:48 AM CDT [facility] HEMOGLOBIN 8.7(L) 14.0 - 18.0 g/dL 06/22/2025 4:48 AM CDT [facility] HEMATOCRIT 26.1(L) 41.0 - 53.0 % 06/22/2025 4:48 AM CDT [facility] MCV 95.3 84.0 - 103.0 fL 06/22/2025 4:48 AM CDT [facility] MCH 31.8 27.0 - 34.0 pg 06/22/2025 4:48 AM CDT [facility] MCHC 33.3 30.0 - 35.0 g/dL 06/22/2025 4:48 AM CDT [facility] PLATELETS 413 140 - 440 K/uL 06/22/2025 4:48 AM CDT [facility] MPV 10.1 8.9 - 12.8 fL 06/22/2025 4:48 AM CDT [facility] RDW 13.0 11.0 - 14.5 % 06/22/2025 4:48 AM CDT [facility] RDW-STDEV 45.0 37.0 - 54.0 fL 06/22/2025 4:48 AM CDT [facility] NEUTROPHILS 79(H) 42 - 75 % 06/22/2025 4:48 AM CDT [facility] LYMPHOCYTES 10(L) 24 - 44 % 06/22/2025 4:48 AM CDT [facility] MONOCYTES 7 2 - 10 % 06/22/2025 4:48 AM CDT [facility] EOSINOPHILS 2 0 - 7 % 06/22/2025 4:48 AM CDT [facility] BASOPHILS 0 0 - 1 % 06/22/2025 4:48 AM CDT [facility] IMMATURE GRANULOCYTES 2 0 - 2 % 06/22/2025 4:48 AM CDT [facility] NEUTROPHIL ABSOLUTE 11.90(H) 2.00 - 8.00 K/uL 06/22/2025 4:48 AM CDT [facility] LYMPHOCYTE ABSOLUTE 1.53 1.20 - 4.00 K/uL 06/22/2025 4:48 AM CDT [facility] MONOCYTE ABSOLUTE 1.04(H) 0.10 - 0.60 K/uL 06/22/2025 4:48 AM CDT [facility] EOSINOPHIL ABSOLUTE 0.24 0.00 - 0.70 K/uL 06/22/2025 4:48 AM CDT [facility] BASOPHILS ABSOLUTE 0.06 0.00 - 0.20 K/uL 06/22/2025 4:48 AM CDT [facility] IMMATURE GRANULOCYTES ABSOLUTE 0.22(H) 0.00 - 0.10 K/uL 06/22/2025 4:48 AM T [facility] SMEAR REVIEWED: NA - Not Applicable 06/22/2025 4:48 AM T [facility] Blood Venipuncture / Unknown 06/22/2025 4:30 AM CDT 06/22/2025 4:35 AM CDT us Love Gonzalez NP HEMATOLOGY ORDERABLES Final Result [facility] CLIA # [id number] [address] [place] [address] * XR ABDOMEN FOR FEEDING TUBE 1 VW (06/22/2025 4:06 AM CDT) Anatomical Region Laterality Modality Abdomen Computed Radiogr aphy 06/22/2025 3:50 AM CDT Impressions 06/22/2025 6:52 AM CDT IMPRESSION: Please see below. Exam: XR ABDOMEN FOR FEEDING TUBE 1 VW Date/Time of Exam: 06/22/2025 4:06 AM REASON FOR EXAM: Check Tube Placement. DIAGNOSIS: ST elevation myocardial infarction (STEMI), unspecified artery; Cardiac arrest with ventricular fibrillation (CMS/HCC); Cardiac arrest with ventricular fibrillation (CMS/HCC); CHB (complete heart block); Laboratory test; Patient receiving extracorporeal membrane oxygenation (ECMO); Ischemic dilated cardiomyopathy (CMS/HCC); Ischemic dilated cardiomyopathy (CMS/HCC). Findings: The enteric tube in the gastric fundus, unchanged since 06/19/2025. There are some infrahilar atelectasis/infiltrate. IMPRESSION: Enteric tube ending in the gastric fundus. Narrative Procedure Note Karl Quinones MD - 06/22/2025 IMPRESSION: Please see below. Exam: XR ABDOMEN FOR FEEDING TUBE 1 VW Date/Time of Exam: 06/22/2025 4:06 AM REASON FOR EXAM: Check Tube Placement. DIAGNOSIS: ST elevation myocardial infarction (STEMI), unspecified artery; Cardiac arrest with ventricular fibrillation (CMS/HCC); Cardiac arrest with ventricular fibrillation (CMS/HCC); CHB (complete heart block); Laboratory test; Patient receiving extracorporeal membrane oxygenation (ECMO); Ischemic dilated cardiomyopathy (CMS/HCC); Ischemic dilated cardiomyopathy (CMS/HCC). Findings: The enteric tube in the gastric fundus, unchanged since 06/19/2025. There are some infrahilar atelectasis/infiltrate. IMPRESSION: Enteric tube ending in the gastric fundus. us Amaya Nickerson MD DIAGNOSTIC IMAGING ORDERABL ES Final Result * (ABNORMAL) POC GLUCOSE (06/21/2025 11:10 PM CDT) GLUCOSE POC 127(H) 74 - 99 mg/dL 06/21/2025 11:10 PM CDT [facility] HEALTHCARE SPECIMEN SOURCE, GLUCOSE POC Capillary 06/21/2025 11:10 PM CDT [facility] Blood, whole 06/21/2025 11:1 0 PM CDT 06/21/2025 11:18 PM CDT us Ebony Lopez MD POINT OF CARE TESTING Final Resu lt Performing Organization Address [facility] de Phone Number [facility] CLIA # [id number] [address] [address] [place] [address] * (ABNORMAL) POC GLUCOSE (06/21/2025 7:11 PM CDT) GLUCOSE POC 126(H) 74 - 99 mg/dL 06/21/2025 7:11 PM CDT [facility] SPECIMEN SOURCE, GLUCOSE POC Capillary 06/21/2025 7:11 PM CDT [facility] Blood, whole 06/21/2025 7:11 PM CDT 06/21/2025 7:19 PM CDT Result Gibson Lopez MD POINT OF CARE TESTING Final Resu lt Performing Organization Address [facility] de Phone Number [facility] CLIA # [id number] [address] [address] * (ABNORMAL) POC GLUCOSE (06/21/2025 4:08 PM CDT) GLUCOSE POC 130(H) 74 - 99 mg/dL 06/21/2025 4:08 PM CDT [facility] SPECIMEN SOURCE, GLUCOSE POC Capillary 06/21/2025 4:08 PM CDT [facility] Blood, whole 06/21/2025 4:08 PM CDT 06/21/2025 4:22 PM CDT Result Gibson Lopez MD POINT OF CARE TESTING Final Resu lt Performing Organization Address [facility] Co de Phone Number [facility] CLIA # [id number] [address] [address] * (ABNORMAL) POC GLUCOSE (06/21/2025 11:13 AM CDT) GLUCOSE POC 137(H) 74 - 99 mg/dL 06/21/2025 11:13 AM CDT [facility] SPECIMEN SOURCE, GLUCOSE POC Capillary 06/21/2025 11:13 AM CDT [facility] Blood, whole 06/21/2025 11:1 3 AM CDT 06/21/2025 11:26 AM CDT us Ebony Lopez MD POINT OF CARE TESTING Final Resu lt Performing Organization Address [facility] de Phone Number [facility] CLIA # [id number] [facility] [address] * EKG 12-LEAD (06/21/2025 8:10 AM CDT) 06/21/2025 8:10 AM CDT Narrative INTERFACE SYSTEM - 06/21/2025 5:46 PM CDT [address] [address] Test Date: 2025-06-21 Pat Name: ISAAC FRANKLIN Department: 12 Room: [address] [place] [address] Gender: Male Compliance Representative: [id number] : 1960 Requested By: Order Number: [id number] Reading MD: Ryan Urrutia Measurements Intervals Malin Rate: 63 P: 44 GA: 162 QRS: -5 QRSD: 90 T: -46 QT: 498 QTc: 509 Interpretive Statements Normal sinus rhythm T wave abnormality, consider lateral ischemia Prolonged QT Abnormal ECG Electronically Signed On 06-21-2025 17:46:14 CDT by Ryan Urrutia Procedure Note Ryan Urrutia MD - 06/21/[address] [address] Test Date: 2025-06-21 Pat Name: ISAAC FRANKLIN Department: 12 Room: [address] [place] [address] Gender: Male Compliance Representative: [id number] : 1960 Requested By: Order Number: [id number] Reading MD: Ryan Urrutia Measurements Intervals Malin Rate: 63 P: 44 GA: 162 QRS: -5 QRSD: 90 T: -46 QT: 498 QTc: 509 Interpretive Statements Normal sinus rhythm T wave abnormality, consider lateral ischemia Prolonged QT Abnormal ECG Electronically Signed On 06-21-2025 17:46:14 CDT by Ryan Urrutia us Prince Yordan SANTANA ECG ORDERABLES Final Result INTERFACE SYSTEM Refer to clinic/hospital department * (ABNORMAL) POC GLUCOSE (06/21/2025 7:57 AM CDT) GLUCOSE POC 149(H) 74 - 99 mg/dL 06/21/2025 7:57 AM CDT [facility] SPECIMEN SOURCE, GLUCOSE POC Capillary 06/21/2025 7:57 AM CDT [facility] Blood, whole 06/21/2025 7:57 AM CDT 06/21/2025 8:06 AM CDT us Ebony Lopez MD POINT OF CARE TESTING Final Resu lt [facility] CLIA # [id number] [address] [place] [address] * XR CHEST PA OR AP 1 VW (06/21/2025 5:23 AM CDT) Anatomical Region Laterality Modality Chest Computed Radiogr aphy 06/21/2025 5:23 AM CDT Impressions 06/21/2025 10:34 AM CDT IMPRESSION: Please see below. EXAM: XR CHEST PA OR AP 1 VW DATE/TIME OF EXAM: 06/21/2025 5:23 AM REASON FOR STUDY: Line Placement, Comment: IABP and Guinda Chelsie DIAGNOSIS: ST elevation myocardial infarction (STEMI), unspecified artery; Cardiac arrest with ventricular fibrillation (CMS/HCC); Cardiac arrest with ventricular fibrillation (CMS/HCC); CHB (complete heart block); Laboratory test; Patient receiving extracorporeal membrane oxygenation (ECMO) COMPARISON: June 20, 2025 TECHNIQUE: A frontal radiograph of the chest was obtained. FINDINGS: Right IJ vascular sheath remains in place. Enteric tube is somewhat difficult to assess due to radiographic exposure, and the lower portion is not definitively seen. Similar appearance of the lungs with multifocal interstitial and patchy airspace disease, which may reflect pulmonary edema, compared to prior study from yesterday. Improved aeration of the lungs. Both costophrenic angles were not imaged completely, there is no large pleural effusion, there may be trace bilateral pleural effusions. Cardiomegaly with vascular congestion and interstitial and alveolar edema. Narrative Procedure Note Araceli Hernandez MD - 06/21/2025 IMPRESSION: Please see below. EXAM: XR CHEST PA OR AP 1 VW DATE/TIME OF EXAM: 06/21/2025 5:23 AM REASON FOR STUDY: Line Placement, Comment: IABP and Guinda Chelsie DIAGNOSIS: ST elevation myocardial infarction (STEMI), unspecified artery; Cardiac arrest with ventricular fibrillation (CMS/HCC); Cardiac arrest with ventricular fibrillation (CMS/HCC); CHB (complete heart block); Laboratory test; Patient receiving extracorporeal membrane oxygenation (ECMO) COMPARISON: June 20, 2025 TECHNIQUE: A frontal radiograph of the chest was obtained. FINDINGS: Right IJ vascular sheath remains in place. Enteric tube is somewhat difficult to assess due to radiographic exposure, and the lower portion is not definitively seen. Similar appearance of the lungs with multifocal interstitial and patchy airspace disease, which may reflect pulmonary edema, compared to prior study from yesterday. Improved aeration of the lungs. Both costophrenic angles were not imaged completely, there is no large pleural effusion, there may be trace bilateral pleural effusions. Cardiomegaly with vascular congestion and interstitial and alveolar edema. Neto Rivera MD DIAGNOSTIC IMAGING ORDERABLES Fi nal Result * (ABNORMAL) TSH (06/21/2025 3:02 AM CDT) Pathologist [facility] [place] TSH 4.27(H) 0.27 - 4.20 uIU/mL 06/21/2025 11:00 AM CDT [facility] Blood Venipuncture / Unknown 06/21/2025 3:02 AM CDT 06/21/2025 3:18 AM CDT Anyi López STOCK PLAN ADMINISTRATOR CHEMISTRY ORDERABLES Final Result [facility] CLIA # [id number] [facility] [address] * (ABNORMAL) CBC WITH DIFFERENTIAL (06/21/2025 3:02 AM CDT) Pathologist [facility] [place] WBC 12.1(H) 4.8 - 10.8 K/uL 06/21/2025 3:16 AM CDT [facility] RBC 2.89(L) 4.60 - 6.20 M/uL 06/21/2025 3:16 AM CDT [facility] HEMOGLOBIN 9.1(L) 14.0 - 18.0 g/dL 06/21/2025 3:16 AM CDT [facility] HEMATOCRIT 27.4(L) 41.0 - 53.0 % 06/21/2025 3:16 AM CDT [facility] MCV 94.8 84.0 - 103.0 fL 06/21/2025 3:16 AM CDT [facility] MCH 31.5 27.0 - 34.0 pg 06/21/2025 3:16 AM CDT [facility] MCHC 33.2 30.0 - 35.0 g/dL 06/21/2025 3:16 AM CDT [facility] PLATELETS 302 140 - 440 K/uL 06/21/2025 3:16 AM [facility] MPV 10.3 8.9 - 12.8 fL 06/21/2025 3:16 AM [facility] RDW 13.3 11.0 - 14.5 % 06/21/2025 3:16 AM [facility] RDW-STDEV 45.7 37.0 - 54.0 fL 06/21/2025 3:16 AM [facility] NEUTROPHILS 75 42 - 75 % 06/21/2025 3:16 AM [facility] LYMPHOCYTES 13(L) 24 - 44 % 06/21/2025 3:16 AM [facility] MONOCYTES 7 2 - 10 % 06/21/2025 3:16 AM [facility] EOSINOPHILS 2 0 - 7 % 06/21/2025 3:16 AM [facility] BASOPHILS 0 0 - 1 % 06/21/2025 3:16 AM [facility] IMMATURE GRANULOCYTES 2 0 - 2 % 06/21/2025 3:16 AM [facility] NEUTROPHIL ABSOLUTE 9.12(H) 2.00 - 8.00 K/uL 06/21/2025 3:16 AM [facility] LYMPHOCYTE ABSOLUTE 1.59 1.20 - 4.00 K/uL 06/21/2025 3:16 AM [facility] MONOCYTE ABSOLUTE 0.88(H) 0.10 - 0.60 K/uL 06/21/2025 3:16 AM [facility] EOSINOPHIL ABSOLUTE 0.24 0.00 - 0.70 K/uL 06/21/2025 3:16 AM [facility] BASOPHILS ABSOLUTE 0.03 0.00 - 0.20 K/uL 06/21/2025 3:16 AM [facility] IMMATURE GRANULOCYTES ABSOLUTE 0.23(H) 0.00 - 0.10 K/uL 06/21/2025 3:16 AM [facility] SMEAR REVIEWED: NA - Not Applicable 06/21/2025 3:16 AM CDT [facility] Blood Venipuncture / Unknown 06/21/2025 3:02 AM CDT 06/21/2025 3:11 AM CDT us Karlie Hamilton MD HEMATOLOGY ORDERABLES Final Res ult [facility] CLIA # [id number] [address] [place] [address] [place] [address] * (ABNORMAL) COMPREHENSIVE METABOLIC PANEL (06/21/2025 3:02 AM CDT) SODIUM 144 136 - 145 mmol/L 06/21/2025 3:52 AM CDT [facility] POTASSIUM 3.5 3.5 - 5.1 mmol/L 06/21/2025 3:52 AM T [facility] CHLORIDE 106 98 - 107 mmol/L 06/21/2025 3:52 AM T [facility] CO2 29 22 - 29 mmol/L 06/21/2025 3:52 AM T [facility] CALCIUM 8.4(L) 8.8 - 10.2 mg/dL 06/21/2025 3:52 AM T [facility] BUN 23 8 - 23 mg/dL 06/21/2025 3:52 AM T [facility] CREATININE 0.72 0.67 - 1.17 mg/dL 06/21/2025 3:52 AM T [facility] GLUCOSE 148(H) 74 - 99 mg/dL 06/21/2025 3:52 AM T [facility] TOTAL PROTEIN 6.0(L) 6.4 - 8.3 g/dL 06/21/2025 3:52 AM T [facility] ALBUMIN 3.0(L) 3.5 - 5.2 g/dL 06/21/2025 3:52 AM T [facility] BILIRUBIN TOTAL 0.6 0.0 - 1.0 mg/dL 06/21/2025 3:52 AM CDT [facility] ALKALINE PHOSPHATASE 120 40 - 129 U/L 06/21/2025 3:52 AM CDT [facility] AST 21 10 - 50 U/L 06/21/2025 3:52 AM CDT [facility] ALT 21 <=50 U/L 06/21/2025 3:52 AM CDT [facility] GFR >60 >=60 mL/min/1.7 3 sq meter 06/21/2025 3:52 AM CDT [facility] Comment:eGFR calculated with 2020 CKD-EPI equation. Vegetarian diet, extremely high or low muscle mass, and may affect results. Cystatin C with Glomerular Filtration Rate is a suitable alternative for these patients. ANION GAP 9 9 - 20 mmol/L 06/21/2025 3:52 AM CDT [facility] Blood Venipuncture / Unknown 06/21/2025 3:02 AM CDT 06/21/2025 3:18 AM CDT Karlie Hamilton MD CHEMISTRY ORDERABLES Final Resu lt Performing Organization Address City/[facility]/ZIP Co de Phone Number [facility] CLIA # [id number] [address] [address] * MAGNESIUM LEVEL (06/21/2025 3:02 AM CDT) MAGNESIUM 2.3 1.6 - 2.4 mg/dL 06/21/2025 3:52 AM CDT [facility] Blood Venipuncture / Unknown 06/21/2025 3:02 AM CDT 06/21/2025 3:18 AM CDT us Karlie Hamilton MD CHEMISTRY ORDERABLES Final Resu lt [facility] CLIA # [id number] [address] [address] [place] [address] * PHOSPHORUS (06/21/2025 3:02 AM CDT) Pathologist [facility] [place] PHOSPHORUS 3.2 2.5 - 4.5 mg/dL 06/21/2025 3:52 AM CDT [facility] Blood Venipuncture / Unknown 06/21/2025 3:02 AM CDT 06/21/2025 3:18 AM CDT Karlie Hamilton MD CHEMISTRY ORDERABLES Final Resu lt Performing Organization Address [facility]/ZIP Co de Phone Number [facility] CLIA # [id number] [address] [address] * (ABNORMAL) POC GLUCOSE (06/20/2025 6:57 PM CDT) [facility] GLUCOSE POC 152(H) 74 - 99 mg/dL 06/20/2025 6:57 PM CDT [facility] SPECIMEN SOURCE, GLUCOSE POC Venous 06/20/2025 6:57 PM CDT [facility] Blood, whole 06/20/2025 6:57 PM CDT 06/20/2025 7:13 PM CDT Karlie Hamilton MD POINT OF CARE TESTING Final Res ult Performing Organization Address City/[facility]/ZIP Co de Phone Number [facility] CLIA # [id number] [address] [address] * (ABNORMAL) POC GLUCOSE (06/20/2025 3:49 PM CDT) [facility] GLUCOSE POC 163(H) 74 - 99 mg/dL 06/20/2025 3:49 PM CDT [facility] SPECIMEN SOURCE, GLUCOSE POC Capillary 06/20/2025 3:49 PM CDT [facility] Blood, whole 06/20/2025 3:49 PM CDT 06/20/2025 5:39 PM CDT Karlie Hamilton MD POINT OF CARE TESTING Final Res ult Performing Organization Address [facility] Co de Phone Number [facility] CLIA # [id number] [address] [address] [place] [address] * (ABNORMAL) POC GLUCOSE (06/20/2025 12:25 PM CDT) [facility] GLUCOSE POC 137(H) 74 - 99 mg/dL 06/20/2025 12:25 PM CDT [facility] SPECIMEN SOURCE, GLUCOSE POC Capillary 06/20/2025 12:25 PM CDT [facility] Blood, whole 06/20/2025 12:2 5 PM CDT 06/20/2025 1:19 PM CDT us Karlie Hamilton MD POINT OF CARE TESTING Final Res ult Performing Organization Address [facility] Co de Phone Number [facility] CLIA # [id number] [address] [address] * XR CHEST PA OR AP 1 VW (06/20/2025 8:36 AM CDT) Anatomical Region Laterality Modality Chest Computed Radiogr aphy 06/20/2025 8:36 AM CDT Impressions 06/20/2025 9:08 AM CDT IMPRESSION: Please see below. Exam: XR CHEST PA OR AP 1 VW Date/Time of Exam: 06/20/2025 8:36 AM Reason For Exam: Line Placement, Comment: IABP and Guinda Chelsie. Diagnosis: ST elevation myocardial infarction (STEMI), unspecified artery; Cardiac arrest with ventricular fibrillation (CMS/HCC); Cardiac arrest with ventricular fibrillation (CMS/HCC); CHB (complete heart block); Laboratory test; Patient receiving extracorporeal membrane oxygenation (ECMO). Findings: The AP semierect study is compared to the exam of 06/19/2025. The ET tube has been removed in the interval. The right IJ Guinda-Chelsie catheter has been removed leaving the venous sheath in place. The intra-aortic balloon pump marker is no longer visualized. The tip of the enteric tube is over the proximal stomach. Lung volumes are adequate. There is no pneumothorax. There is increased patchy bilateral interstitial and airspace disease. The cardiac silhouette is generous in size. The pulmonary markings are indistinct. The bony thorax is grossly intact. IMPRESSION: 1. Lines and tubes as described. 2. There is increased patchy bilateral interstitial and airspace disease most suspicious for pulmonary edema. Narrative Procedure Note Bela Spring MD - 06/20/2025 IMPRESSION: Please see below. Exam: XR CHEST PA OR AP 1 VW Date/Time of Exam: 06/20/2025 8:36 AM Reason For Exam: Line Placement, Comment: IABP and Guinda Chelsie. Diagnosis: ST elevation myocardial infarction (STEMI), unspecified artery; Cardiac arrest with ventricular fibrillation (CMS/HCC); Cardiac arrest with ventricular fibrillation (CMS/HCC); CHB (complete heart block); Laboratory test; Patient receiving extracorporeal membrane oxygenation (ECMO). Findings: The AP semierect study is compared to the exam of 06/19/2025. The ET tube has been removed in the interval. The right IJ Guinda-Chelsie catheter has been removed leaving the venous sheath in place. The intra-aortic balloon pump marker is no longer visualized. The tip of the enteric tube is over the proximal stomach. Lung volumes are adequate. There is no pneumothorax. There is increased patchy bilateral interstitial and airspace disease. The cardiac silhouette is generous in size. The pulmonary markings are indistinct. The bony thorax is grossly intact. IMPRESSION: 1. Lines and tubes as described. 2. There is increased patchy bilateral interstitial and airspace disease most suspicious for pulmonary edema. Neto Rivera MD DIAGNOSTIC IMAGING ORDERABLES Fi nal Result * (ABNORMAL) POC GLUCOSE (06/20/2025 7:28 AM CDT) GLUCOSE POC 143(H) 74 - 99 mg/dL 06/20/2025 7:28 AM CDT [facility] SPECIMEN SOURCE, GLUCOSE POC Capillary 06/20/2025 7:28 AM CDT [facility] Blood, whole 06/20/2025 7:28 AM CDT 06/20/2025 8:02 AM CDT Karlie Hamilton MD POINT OF CARE TESTING Final Res ult Performing Organization Address [facility]/ZIP Co de Phone Number [facility] CLIA # [id number] [address] [address] * (ABNORMAL) POC GLUCOSE (06/20/2025 3:22 AM CDT) GLUCOSE POC 126(H) 74 - 99 mg/dL 06/20/2025 3:22 AM CDT [facility] SPECIMEN SOURCE, GLUCOSE POC Venous 06/20/2025 3:22 AM CDT [facility] Blood, whole 06/20/2025 3:22 AM CDT 06/20/2025 8:02 AM CDT Karlie Hamilton MD POINT OF CARE TESTING Final Res ult [facility] CLIA # [id number] [address] [id number] * (ABNORMAL) CBC WITH DIFFERENTIAL (06/20/2025 3:18 AM CDT) WBC 12.4(H) 4.8 - 10.8 K/uL 06/20/2025 3:30 AM CDT [facility] RBC 2.98(L) 4.60 - 6.20 M/uL 06/20/2025 3:30 AM [facility] HEMOGLOBIN 9.4(L) 14.0 - 18.0 g/dL 06/20/2025 3:30 AM [facility] HEMATOCRIT 28.3(L) 41.0 - 53.0 % 06/20/2025 3:30 AM [facility] MCV 95.0 84.0 - 103.0 fL 06/20/2025 3:30 AM [facility] MCH 31.5 27.0 - 34.0 pg 06/20/2025 3:30 AM [facility] MCHC 33.2 30.0 - 35.0 g/dL 06/20/2025 3:30 AM [facility] PLATELETS 240 140 - 440 K/uL 06/20/2025 3:30 AM [facility] MPV 10.4 8.9 - 12.8 fL 06/20/2025 3:30 AM [facility] RDW 13.3 11.0 - 14.5 % 06/20/2025 3:30 AM [facility] RDW-STDEV 45.5 37.0 - 54.0 fL 06/20/2025 3:30 AM [facility] NEUTROPHILS 77(H) 42 - 75 % 06/20/2025 3:30 AM [facility] LYMPHOCYTES 10(L) 24 - 44 % 06/20/2025 3:30 AM [facility] MONOCYTES 8 2 - 10 % 06/20/2025 3:30 AM [facility] EOSINOPHILS 2 0 - 7 % 06/20/2025 3:30 AM [facility] BASOPHILS 0 0 - 1 % 06/20/2025 3:30 AM [facility] IMMATURE GRANULOCYTES 3(H) 0 - 2 % 06/20/2025 3:30 AM [facility] NEUTROPHIL ABSOLUTE 9.57(H) 2.00 - 8.00 K/uL 06/20/2025 3:30 AM CDT [facility] LYMPHOCYTE ABSOLUTE 1.28 1.20 - 4.00 K/uL 06/20/2025 3:30 AM CDT [facility] MONOCYTE ABSOLUTE 1.01(H) 0.10 - 0.60 K/uL 06/20/2025 3:30 AM CDT [facility] EOSINOPHIL ABSOLUTE 0.19 0.00 - 0.70 K/uL 06/20/2025 3:30 AM CDT [facility] BASOPHILS ABSOLUTE 0.04 0.00 - 0.20 K/uL 06/20/2025 3:30 AM CDT [facility] IMMATURE GRANULOCYTES ABSOLUTE 0.33(H) 0.00 - 0.10 K/uL 06/20/2025 3:30 AM CDT [facility] SMEAR REVIEWED: NA - Not Applicable 06/20/2025 3:30 AM CDT [facility] Blood Venipuncture / Unknown 06/20/2025 3:18 AM CDT 06/20/2025 3:25 AM CDT us Karlie Hamilton MD HEMATOLOGY ORDERABLES Final Res ult [facility] CLIA # [id number] [address] [place] [id number] * (ABNORMAL) COMPREHENSIVE METABOLIC PANEL (06/20/2025 3:18 AM CDT) SODIUM 145 136 - 145 mmol/L 06/20/2025 4:00 AM CDT [facility] POTASSIUM 3.3(L) 3.5 - 5.1 mmol/L 06/20/2025 4:00 AM CDT [facility] CHLORIDE 105 98 - 107 mmol/L 06/20/2025 4:00 AM CDT [facility] CO2 27 22 - 29 mmol/L 06/20/2025 4:00 AM CDT [facility] CALCIUM 8.4(L) 8.8 - 10.2 mg/dL 06/20/2025 4:00 AM [facility] BUN 20 8 - 23 mg/dL 06/20/2025 4:00 AM [facility] CREATININE 0.67 0.67 - 1.17 mg/dL 06/20/2025 4:00 AM [facility] GLUCOSE 120(H) 74 - 99 mg/dL 06/20/2025 4:00 AM [facility] TOTAL PROTEIN 6.4 6.4 - 8.3 g/dL 06/20/2025 4:00 AM [facility] ALBUMIN 3.0(L) 3.5 - 5.2 g/dL 06/20/2025 4:00 AM [facility] BILIRUBIN TOTAL 0.8 0.0 - 1.0 mg/dL 06/20/2025 4:00 AM [facility] ALKALINE PHOSPHATASE 135(H) 40 - 129 U/L 06/20/2025 4:00 AM [facility] AST 24 10 - 50 U/L 06/20/2025 4:00 AM [facility] ALT 25 <=50 U/L 06/20/2025 4:00 AM [facility] GFR >60 >=60 mL/min/1.7 3 sq meter 06/20/2025 4:00 AM [facility] Comment:eGFR calculated with 2020 CKD-EPI equation. Vegetarian diet, extremely high or low muscle mass, and may affect results. Cystatin C with Glomerular Filtration Rate is a suitable alternative for these patients. ANION GAP 13 9 - 20 mmol/L 06/20/2025 4:00 AM [facility] Blood Venipuncture / Unknown 06/20/2025 3:18 AM CDT 06/20/2025 3:28 AM T us Karlie Hamilton MD CHEMISTRY ORDERABLES Final Resu lt [facility] CLIA # [id number] [address] [place] [address] * MAGNESIUM LEVEL (06/20/2025 3:18 AM CDT) MAGNESIUM 2.2 1.6 - 2.4 mg/dL 06/20/2025 4:00 AM CDT [facility] Blood Venipuncture / Unknown 06/20/2025 3:18 AM CDT 06/20/2025 3:28 AM CDT us Karlie Hamilton MD CHEMISTRY ORDERABLES Final Resu lt Performing Organization Address City/[facility]/ZIP Co de Phone Number [facility] CLIA # [id number] [address] [address] * PHOSPHORUS (06/20/2025 3:18 AM CDT) Pathologist [facility] PHOSPHORUS 3.1 2.5 - 4.5 mg/dL 06/20/2025 4:00 AM CDT [facility] Blood Venipuncture / Unknown 06/20/2025 3:18 AM CDT 06/20/2025 3:28 AM CDT us Karlie Hamilton MD CHEMISTRY ORDERABLES Final Resu lt [facility] CLIA # [id number] [address] [address] [place] [address] * PTT (06/20/2025 3:18 AM CDT) PTT 27.4 24.8 - 37.2 seconds 06/20/2025 3:37 AM CDT [facility] Blood Venipuncture / Unknown 06/20/2025 3:18 AM CDT 06/20/2025 3:25 AM CDT Narrative [facility] - 06/20/2025 3:37 AM CDT Therapeutic Range: Hi-level PE/DVT heparin protocol 80.1 - 95.0 sec Lo-level PE/DVT heparin protocol 70.1 - 85.0 sec Cardiac Heparin Protocol 70.1 - 100.0 sec Victorina Woods NP HEMATOLOGY ORDERABLES Final Res ult Performing Organization Address [facility] Co de Phone Number [facility] CLIA # [id number] [address] [address] [place] [address] * (ABNORMAL) POC GLUCOSE (06/20/2025 12:11 AM CDT) GLUCOSE POC 121(H) 74 - 99 mg/dL 06/20/2025 12:11 AM CDT [facility] SPECIMEN SOURCE, GLUCOSE POC Capillary 06/20/2025 12:11 AM CDT [facility] Blood, whole 06/20/2025 12:1 1 AM CDT 06/20/2025 12:29 AM CDT us Karlie Hamilton MD POINT OF CARE TESTING Final Res ult Performing Organization Address [facility] Co de Phone Number [facility] CLIA # [id number] [address] [address] * (ABNORMAL) POC GLUCOSE (06/19/2025 8:50 PM CDT) GLUCOSE POC 148(H) 74 - 99 mg/dL 06/19/2025 8:50 PM CDT [facility] SPECIMEN SOURCE, GLUCOSE POC Capillary 06/19/2025 8:50 PM CDT [facility] Blood, whole 06/19/2025 8:50 PM CDT 06/21/2025 6:31 AM CDT Karlie Hamilton MD POINT OF CARE TESTING Final Res ult [facility] CLIA # [id number] [address] [address] [place] [address] * XR ABDOMEN FOR FEEDING TUBE 1 VW (06/19/2025 8:45 PM CDT) Anatomical Region Laterality Modality Abdomen Computed Radiogr aphy 06/19/2025 8:45 PM CDT Impressions 06/19/2025 9:07 PM CDT IMPRESSION: See below. EXAMINATION: XR ABDOMEN FOR FEEDING TUBE 1 VW ASSOCIATED DIAGNOSIS: Check Tube Placement ST elevation myocardial infarction (STEMI), unspecified artery; Cardiac arrest with ventricular fibrillation (CMS/HCC); Cardiac arrest with ventricular fibrillation (CMS/HCC); CHB (complete heart block); Laboratory test; Patient receiving extracorporeal membrane oxygenation (ECMO) ORDERING PROVIDER: KARLIE HAMILTON COMPARISON: June 17 FINDINGS/IMPRESSION: Enteric tube with tip overlying the gastric fundus. Narrative Procedure Note Delon Perry MD - 06/19/2025 IMPRESSION: See below. EXAMINATION: XR ABDOMEN FOR FEEDING TUBE 1 VW ASSOCIATED DIAGNOSIS: Check Tube Placement ST elevation myocardial infarction (STEMI), unspecified artery; Cardiac arrest with ventricular fibrillation (CMS/HCC); Cardiac arrest with ventricular fibrillation (CMS/HCC); CHB (complete heart block); Laboratory test; Patient receiving extracorporeal membrane oxygenation (ECMO) ORDERING PROVIDER: KARLIE HAMILTON COMPARISON: June 17 FINDINGS/IMPRESSION: Enteric tube with tip overlying the gastric fundus. Karlie Hamilton MD DIAGNOSTIC IMAGING ORDERABLES F inal Result * (ABNORMAL) POC GLUCOSE (06/19/2025 5:26 PM CDT) GLUCOSE POC 156(H) 74 - 99 mg/dL 06/19/2025 5:26 PM CDT [facility] SPECIMEN SOURCE, GLUCOSE POC Capillary 06/19/2025 5:26 PM CDT [facility] Blood, whole 06/19/2025 5:26 PM CDT 06/21/2025 6:31 AM CDT Karlie Hamilton MD POINT OF CARE TESTING Final Res ult Performing Organization Address [facility]/ZIP Co de Phone Number [facility] CLIA # [id number] [address] [address] [place] [address] * (ABNORMAL) POC GLUCOSE (06/19/2025 12:34 PM CDT) GLUCOSE POC 102(H) 74 - 99 mg/dL 06/19/2025 12:34 PM CDT [facility] SPECIMEN SOURCE, GLUCOSE POC Capillary 06/19/2025 12:34 PM CDT [facility] Blood, whole 06/19/2025 12:3 4 PM CDT 06/21/2025 6:31 AM CDT Karlie Hamilton MD POINT OF CARE TESTING Final Res ult Performing Organization Address [facility] Co de Phone Number [facility] CLIA # [id number] [address] [address] * POC ACTIVATED CLOTTING TIME (06/19/2025 10:49 AM CDT) ACTIVATED CLOTTING TIME POC 135 116 - 140 sec 06/19/2025 10:49 AM CDT [facility] Blood 06/19/2025 10:4 9 AM CDT 06/19/2025 6:53 PM CDT Karlie Hamilton MD POINT OF CARE TESTING Final Res ult Performing Organization Address City/[facility]/ZIP Co de Phone Number [facility] CLIA # [id number] [address] [facility] [place] [address] * (ABNORMAL) POC GLUCOSE (06/19/2025 9:12 AM CDT) GLUCOSE POC 105(H) 74 - 99 mg/dL 06/19/2025 9:12 AM CDT [facility] SPECIMEN SOURCE, GLUCOSE POC Arterial 06/19/2025 9:12 AM CDT [facility] Blood, whole 06/19/2025 9:12 AM CDT 06/21/2025 6:31 AM CDT us Karlie Hamilton MD POINT OF CARE TESTING Final Res ult [facility] CLIA # [id number] [address] [address] * XR CHEST PA OR AP 1 VW (06/19/2025 5:56 AM CDT) Anatomical Region Laterality Modality Chest Computed Radiogr aphy 06/19/2025 5:56 AM CDT Impressions 06/19/2025 11:27 AM CDT IMPRESSION: Please see below. Exam: XR CHEST PA OR AP 1 VW Date/Time of Exam: 06/19/2025 5:56 AM Reason For Exam: Line Placement, Comment: IABP and Guinda Chelsie. Diagnosis: ST elevation myocardial infarction (STEMI), unspecified artery; Cardiac arrest with ventricular fibrillation (CMS/HCC); Cardiac arrest with ventricular fibrillation (CMS/HCC); CHB (complete heart block); Laboratory test; Patient receiving extracorporeal membrane oxygenation (ECMO). Findings: The AP semierect study is compared to the exam of 06/18/2025. The tip of the ET tube is above the jennifer. The tip of the right IJ Guinda-Chelsie catheter is in the right pulmonary artery. The marker for an intra-aortic balloon pump is noted inferior to the aortic arch. The tip of the enteric tube is off the study below the diaphragm. The inferior approach pacemaker lead is stable. Lung volumes are low. There is no pneumothorax. There is a trace left pleural effusion with mild left basilar infiltrate or atelectasis. The lungs are otherwise clear. The cardiac silhouette is generous in size. There is mild to moderate vascular congestion. The bony thorax is grossly intact. Narrative Procedure Note Bela Spring MD - 06/19/2025 IMPRESSION: Please see below. Exam: XR CHEST PA OR AP 1 VW Date/Time of Exam: 06/19/2025 5:56 AM Reason For Exam: Line Placement, Comment: IABP and Guinda Chelsie. Diagnosis: ST elevation myocardial infarction (STEMI), unspecified artery; Cardiac arrest with ventricular fibrillation (CMS/HCC); Cardiac arrest with ventricular fibrillation (CMS/HCC); CHB (complete heart block); Laboratory test; Patient receiving extracorporeal membrane oxygenation (ECMO). Findings: The AP semierect study is compared to the exam of 06/18/2025. The tip of the ET tube is above the jennifer. The tip of the right IJ Guinda-Chelsie catheter is in the right pulmonary artery. The marker for an intra-aortic balloon pump is noted inferior to the aortic arch. The tip of the enteric tube is off the study below the diaphragm. The inferior approach pacemaker lead is stable. Lung volumes are low. There is no pneumothorax. There is a trace left pleural effusion with mild left basilar infiltrate or atelectasis. The lungs are otherwise clear. The cardiac silhouette is generous in size. There is mild to moderate vascular congestion. The bony thorax is grossly intact. Neto Rivera MD DIAGNOSTIC IMAGING ORDERABLES Fi nal Result * (ABNORMAL) CBC WITH DIFFERENTIAL (06/19/2025 4:08 AM CDT) WBC 9.7 4.8 - 10.8 K/uL 06/19/2025 4:21 AM CDT [facility] RBC 3.41(L) 4.60 - 6.20 M/uL 06/19/2025 4:21 AM T [facility] HEMOGLOBIN 10.7(L) 14.0 - 18.0 g/dL 06/19/2025 4:21 AM [facility] HEMATOCRIT 32.6(L) 41.0 - 53.0 % 06/19/2025 4:21 AM [facility] MCV 95.6 84.0 - 103.0 fL 06/19/2025 4:21 AM [facility] MCH 31.4 27.0 - 34.0 pg 06/19/2025 4:21 AM [facility] MCHC 32.8 30.0 - 35.0 g/dL 06/19/2025 4:21 AM [facility] PLATELETS 134(L) 140 - 440 K/uL 06/19/2025 4:21 AM [facility] MPV 10.6 8.9 - 12.8 fL 06/19/2025 4:21 AM [facility] RDW 13.7 11.0 - 14.5 % 06/19/2025 4:21 AM [facility] RDW-STDEV 47.9 37.0 - 54.0 fL 06/19/2025 4:21 AM [facility] NEUTROPHILS 71 42 - 75 % 06/19/2025 4:21 AM [facility] LYMPHOCYTES 15(L) 24 - 44 % 06/19/2025 4:21 AM [facility] MONOCYTES 8 2 - 10 % 06/19/2025 4:21 AM [facility] EOSINOPHILS 3 0 - 7 % 06/19/2025 4:21 AM [facility] BASOPHILS 1 0 - 1 % 06/19/2025 4:21 AM [facility] IMMATURE GRANULOCYTES 3(H) 0 - 2 % 06/19/2025 4:21 AM [facility] NEUTROPHIL ABSOLUTE 6.86 2.00 - 8.00 K/uL 06/19/2025 4:21 AM [facility] LYMPHOCYTE ABSOLUTE 1.50 1.20 - 4.00 K/uL 06/19/2025 4:21 AM [facility] MONOCYTE ABSOLUTE 0.81(H) 0.10 - 0.60 K/uL 06/19/2025 4:21 AM CDT [facility] EOSINOPHIL ABSOLUTE 0.25 0.00 - 0.70 K/uL 06/19/2025 4:21 AM CDT [facility] BASOPHILS ABSOLUTE 0.06 0.00 - 0.20 K/uL 06/19/2025 4:21 AM CDT [facility] IMMATURE GRANULOCYTES ABSOLUTE 0.24(H) 0.00 - 0.10 K/uL 06/19/2025 4:21 AM CDT [facility] SMEAR REVIEWED: NA - Not Applicable 06/19/2025 4:21 AM T [facility] Blood Arterial / Unknown 4:08 AM CDT 06/19/2025 4:16 AM CDT us Karlie Hamilton MD HEMATOLOGY ORDERABLES Final Res ult [facility] CLIA # [id number] [address] [place] [address] * (ABNORMAL) COMPREHENSIVE METABOLIC PANEL (06/19/2025 4:08 AM CDT) SODIUM 142 136 - 145 mmol/L 06/19/2025 5:05 AM T [facility] POTASSIUM 3.4(L) 3.5 - 5.1 mmol/L 06/19/2025 5:05 AM T [facility] CHLORIDE 106 98 - 107 mmol/L 06/19/2025 5:05 AM T [facility] CO2 27 22 - 29 mmol/L 06/19/2025 5:05 AM T [facility] CALCIUM 8.2(L) 8.8 - 10.2 mg/dL 06/19/2025 5:05 AM T [facility] BUN 22 8 - 23 mg/dL 06/19/2025 5:05 AM [facility] CREATININE 0.66(L) 0.67 - 1.17 mg/dL 06/19/2025 5:05 AM [facility] GLUCOSE 104(H) 74 - 99 mg/dL 06/19/2025 5:05 AM [facility] TOTAL PROTEIN 5.7(L) 6.4 - 8.3 g/dL 06/19/2025 5:05 AM [facility] ALBUMIN 2.9(L) 3.5 - 5.2 g/dL 06/19/2025 5:05 AM [facility] BILIRUBIN TOTAL 0.5 0.0 - 1.0 mg/dL 06/19/2025 5:05 AM [facility] ALKALINE PHOSPHATASE 135(H) 40 - 129 U/L 06/19/2025 5:05 AM [facility] AST 22 10 - 50 U/L 06/19/2025 5:05 AM [facility] ALT 26 <=50 U/L 06/19/2025 5:05 AM [facility] GFR >60 >=60 mL/min/1. 73 sq meter 06/19/2025 5:05 AM [facility] Comment:eGFR calculated with 2020 CKD-EPI equation. Vegetarian diet, extremely high or low muscle mass, and may affect results. Cystatin C with Glomerular Filtration Rate is a suitable alternative for these patients. ANION GAP 9 9 - 20 mmol/L 06/19/2025 5:05 AM [facility] Blood Arterial / Unknown 4:08 AM CDT 06/19/2025 4:17 AM T us Karlie Hamilton MD CHEMISTRY ORDERABLES Final Resu lt [facility] CLIA # [id number] [address] [place] [address] * MAGNESIUM LEVEL (06/19/2025 4:08 AM CDT) MAGNESIUM 2.3 1.6 - 2.4 mg/dL 06/19/2025 5:05 AM CDT [facility] Blood Arterial / Unknown 4:08 AM CDT 06/19/2025 4:17 AM CDT Karlie Hamilton MD CHEMISTRY ORDERABLES Final Resu lt Performing Organization Address City/[facility]/ZIP Co de Phone Number [facility] CLIA # [id number] [address] [address] * (ABNORMAL) PHOSPHORUS (06/19/2025 4:08 AM CDT) PHOSPHORUS 1.6(L) 2.5 - 4.5 mg/dL 06/19/2025 5:05 AM CDT [facility] Blood Arterial / Unknown 4:08 AM CDT 06/19/2025 4:17 AM CDT Karlie Hamilton MD CHEMISTRY ORDERABLES Final Resu lt Performing Organization Address [facility] Co de Phone Number [facility] CLIA # [id number] [address] [address] * (ABNORMAL) PTT (06/19/2025 1:02 AM CDT) PTT 57.5(H) 24.8 - 37.2 seconds 06/19/2025 1:24 AM CDT [facility] Blood Arterial / Unknown 1:02 AM CDT 06/19/2025 1:11 AM CDT Narrative [facility] - 06/19/2025 1:24 AM CDT Therapeutic Range: Hi-level PE/DVT heparin protocol 80.1 - 95.0 sec Lo-level PE/DVT heparin protocol 70.1 - 85.0 sec Cardiac Heparin Protocol 70.1 - 100.0 sec Karlie Hamilton MD HEMATOLOGY ORDERABLES Final Res ult Performing Organization Address [facility] Co de Phone Number [facility] CLIA # [id number] [address] [address] [place], [place] [address] * POC GLUCOSE (06/18/2025 11:42 PM CDT) GLUCOSE POC 91 74 - 99 mg/dL 06/18/2025 11:42 PM CDT [facility] SPECIMEN SOURCE, GLUCOSE POC Arterial 06/18/2025 11:42 PM CDT [facility] Blood, whole 06/18/2025 11:4 2 PM CDT 06/19/2025 12:05 AM CDT Karlie Hamilton MD POINT OF CARE TESTING Final Res ult Performing Organization Address [facility] de Phone Number [facility] CLIA # [id number] [address] [address] * (ABNORMAL) POC GLUCOSE (06/18/2025 8:00 PM CDT) GLUCOSE POC 131(H) 74 - 99 mg/dL 06/18/2025 8:00 PM CDT [facility] SPECIMEN SOURCE, GLUCOSE POC Venous 06/18/2025 8:00 PM CDT [facility] Blood, whole 06/18/2025 8:00 PM CDT 06/18/2025 8:08 PM CDT Karlie Hamilton MD POINT OF CARE TESTING Final Res ult Performing Organization Address [facility]/ZIP Co de Phone Number [facility] CLIA # [id number] [address] [facility] [place] [address] * (ABNORMAL) POTASSIUM LEVEL (06/18/2025 5:02 PM CDT) POTASSIUM 3.4(L) 3.5 - 5.1 mmol/L 06/18/2025 5:38 PM CDT [facility] Blood Arterial / Unknown 5:02 PM CDT 06/18/2025 5:14 PM CDT us Karlie Hamilton MD CHEMISTRY ORDERABLES Final Resu lt Performing Organization Address [facility] Co de Phone Number [facility] CLIA # [id number] [address] [facility] [place] [address] * (ABNORMAL) PTT (06/18/2025 5:02 PM CDT) PTT 52.9(H) 24.8 - 37.2 seconds 06/18/2025 5:34 PM CDT [facility] Blood Arterial / Unknown 5:02 PM CDT 06/18/2025 5:13 PM CDT Narrative [facility] - 06/18/2025 5:34 PM CDT Therapeutic Range: Hi-level PE/DVT heparin protocol 80.1 - 95.0 sec Lo-level PE/DVT heparin protocol 70.1 - 85.0 sec Cardiac Heparin Protocol 70.1 - 100.0 sec us Karlie Hamilton MD HEMATOLOGY ORDERABLES Final Res ult Performing Organization Address [facility] Co de Phone Number [facility] CLIA # [id number] [address] [facility] [place], [place] [address] * (ABNORMAL) POC GLUCOSE (06/18/2025 4:56 PM CDT) GLUCOSE POC 177(H) 74 - 99 mg/dL 06/18/2025 4:56 PM CDT [facility] SPECIMEN SOURCE, GLUCOSE POC Arterial 06/18/2025 4:56 PM CDT [facility] Blood, whole 06/18/2025 4:56 PM CDT 06/19/2025 12:13 AM CDT Karlie Hamilton MD POINT OF CARE TESTING Final Res ult Performing Organization Address City/[facility]/ZIP Co de Phone Number [facility] CLIA # [id number] [address] [address] * SPUTUM CULTURE WITH GRAM STAIN (06/18/2025 12:11 PM CDT) Pathologist [facility] CULTURE No pathogens isolated. Normal respiratory alon reduced. 06/20/2025 9:39 AM CDT [facility] GRAM STAIN Smear contains </=10 squamous epithelial cells per low power field 06/20/2025 9:39 AM CDT [facility] GRAM STAIN <25 PMN WBC/LPF 9:39 AM CDT [facility] GRAM STAIN No organisms observed 06/20/2025 9:39 AM CDT [facility] Sputum SPUTUM SPECIMEN OBTAINED BY ASPIRATION / Unknown Collection / Unknown 06/18/2025 12:11 PM CDT 06/18/2025 12:17 PM CDT Karlie Hamilton MD MICROBIOLOGY - GENERAL ORDERABL ES Final Result Performing Organization Address [facility]/ZIP Co de Phone Number [facility] CLIA # [id number] [address] [address] [place] [address] * (ABNORMAL) POC GLUCOSE (06/18/2025 11:17 AM CDT) GLUCOSE POC 138(H) 74 - 99 mg/dL 06/18/2025 11:17 AM CDT [facility] SPECIMEN SOURCE, GLUCOSE POC Arterial 06/18/2025 11:17 AM CDT [facility] Blood, whole 06/18/2025 11:1 7 AM CDT 06/19/2025 12:13 AM CDT us Karlie Hamilton MD POINT OF CARE TESTING Final Res ult [facility] CLIA # [id number] [address] [place] [address] * XR CHEST PA OR AP 1 VW (06/18/2025 10:16 AM CDT) Anatomical Region Laterality Modality Chest Computed Radiogr aphy 06/18/2025 10:1 6 AM CDT Impressions 06/18/2025 11:17 AM CDT IMPRESSION: No appreciable change since the prior day. Narrative 06/18/2025 11:17 AM CDT Exam: XR CHEST PA OR AP 1 VW Date/Time of Exam: 06/18/2025 10:16 AM Reason For Exam: Line Placement Diagnosis: ST elevation myocardial infarction (STEMI), unspecified artery; Cardiac arrest with ventricular fibrillation (CMS/HCC); Cardiac arrest with ventricular fibrillation (CMS/HCC); CHB (complete heart block); Laboratory test; Patient receiving extracorporeal membrane oxygenation (ECMO) Comparison is to a study from the prior day. Tubes and lines continue to show good placement. Atelectasis persists in the left lower lung. The right lung is clear. No pneumothorax is seen. Procedure Note John Merritt MD - 06/18/2025 Exam: XR CHEST PA OR AP 1 VW Date/Time of Exam: 06/18/2025 10:16 AM Reason For Exam: Line Placement Diagnosis: ST elevation myocardial infarction (STEMI), unspecified artery; Cardiac arrest with ventricular fibrillation (CMS/HCC); Cardiac arrest with ventricular fibrillation (CMS/HCC); CHB (complete heart block); Laboratory test; Patient receiving extracorporeal membrane oxygenation (ECMO) Comparison is to a study from the prior day. Tubes and lines continue to show good placement. Atelectasis persists in the left lower lung. The right lung is clear. No pneumothorax is seen. IMPRESSION: No appreciable change since the prior day. Karlie Hamilton MD DIAGNOSTIC IMAGING ORDERABLES F inal Result * (ABNORMAL) PTT (06/18/2025 8:54 AM CDT) PTT 44.5(H) 24.8 - 37.2 seconds 06/18/2025 9:17 AM CDT [facility] Blood Arterial / Unknown 8:54 AM CDT 06/18/2025 9:00 AM CDT Narrative [facility] - 06/18/2025 9:17 AM CDT Therapeutic Range: Hi-level PE/DVT heparin protocol 80.1 - 95.0 sec Lo-level PE/DVT heparin protocol 70.1 - 85.0 sec Cardiac Heparin Protocol 70.1 - 100.0 sec Karlie Hamilton MD HEMATOLOGY ORDERABLES Final Res ult [facility] # [id number] [address] [place] [address] * POC LACTIC ACID (06/18/2025 7:15 AM CDT) LACTIC ACID POC 0.8 <=2.0 mmol/L 06/18/2025 7:15 AM CDT [facility] SPECIMEN SOURCE, GASES POC Arterial 06/18/2025 7:15 AM CDT [facility] S[facility] POC No Charge 06/18/2025 7:15 [facility] 06/18/2025 7:15 AM CDT 06/18/2025 7:17 AM CDT Narrative [facility] - 06/18/2025 7:15 AM CDT References ranges displayed are for Arterial samples. us Karlie Hamilton MD POINT OF CARE TESTING Final Res ult [facility] CLIA # [id number] [address] [place] [address] [place] [address] * (ABNORMAL) BLOOD GAS ARTERIAL (06/18/2025 7:15 AM CDT) PH BLOOD POC 7.45 7.35 - 7.45 06/18/2025 7:15 AM [facility] PCO2 POC 35 35 - 45 mm Hg 06/18/2025 7:15 AM [facility] PO2 POC 131(H) 80 - 105 mm Hg 06/18/2025 7:15 AM [facility] HCO3 (CALC) POC 24 22 - 26 mmol/L 06/18/2025 7:15 AM [facility] HEMOGLOBIN POC 9.6(L) 12.0 - 18.0 g/dL 06/18/2025 7:15 AM [facility] BASE EXCESS POC 0 -2 - 3 mmol/L 06/18/2025 7:15 AM [facility] O2 SATURATION POC 99(H) 95 - 98 % 025 7:15 AM [facility] SODIUM POC 140 138 - 146 mmol/L 06/18/2025 7:15 AM [facility] POTASSIUM POC 4.0 3.5 - 4.9 mmol/L 06/18/2025 7:15 AM [facility] HEMATOCRIT POC 29(L) 38 - 51 % 06/18/2025 7:15 AM [facility] PH TEMP CORRECT 7.45 7.35 - 7.45 06/18/2025 7:15 AM [facility] PCO2 TEMP CORRECT 35 35 - 45 mm Hg 06/18/2025 7:15 AM [facility] PO2 TEMP CORRECT 131(H) 80 - 105 mm Hg 06/18/2025 7:15 AM T [facility] SPECIMEN SOURCE, GASES POC Arterial 06/18/2025 7:15 AM T [facility] CALCIUM IONIZED POC 4.6(L) 4.8 - 5.2 mg/dL 06/18/2025 7:15 AM T [facility] TCO2 (CALC) POC 25 23 - 27 mmol/L 06/18/2025 7:15 AM T [facility] FIO2 45.0 21.0 - 100.0 % 06/18/2025 7:15 AM [facility] Comment:FIO2 values reported <21.0 indicate O2 flow in Liters/minute. Values >/= 21.0 indicate percent O2. P/F RATIO POC 291 06/18/2025 7:15 AM T [facility] Comment: P/F Ratio Interpretation ARDS SEVERITY PaO2/FiO2 Mild 200-300 Moderate 100-200 Severe <100 PEEP POC 12 06/18/2025 7:15 AM [facility] PUNC SITE POC No Charge 06/18/2025 7:15 AM [facility] VENT MODE POC PRVC 06/18/2025 7:15 AM T [facility] PATIENT'S TEMPERATURE POC 37.0 degrees 06/18/2025 7:15 AM [facility] Blood, arterial 06/18/2025 7 :15 AM CDT 06/18/2025 7:17 AM CDT us Karlie Hamilton MD ABG ORDERABLES Final Result [facility] CLIA # [id number] [facility] [address] [place] [address] * (ABNORMAL) POC GLUCOSE (06/18/2025 7:14 AM CDT) GLUCOSE POC 118(H) 74 - 99 mg/dL 06/18/2025 7:14 AM CDT [facility] SPECIMEN SOURCE, GLUCOSE POC Arterial 06/18/2025 7:14 AM CDT [facility] Blood, whole 06/18/2025 7:14 AM CDT 06/19/2025 12:13 AM CDT us Karlie Hamilton MD POINT OF CARE TESTING Final Res ult Performing Organization Address [facility]/ZIP Co de Phone Number [facility] CLIA # [id number] [facility] [address] [address] * (ABNORMAL) HAPTOGLOBIN (06/18/2025 3:36 AM CDT) HAPTOGLOBIN 305(H) 30 - 200 mg/dL 06/18/2025 4:20 AM CDT [facility] Blood Arterial / Unknown 3:36 AM CDT 06/18/2025 3:39 AM CDT us Zenaida Michel MD CHEMISTRY ORDERABLES Final Resul t [facility] CLIA # [id number] [address] [address] * (ABNORMAL) CBC WITH DIFFERENTIAL (06/18/2025 3:36 AM CDT) WBC 10.9(H) 4.8 - 10.8 K/uL 06/18/2025 3:48 AM CDT [facility] RBC 3.72(L) 4.60 - 6.20 M/uL 06/18/2025 3:48 AM [facility] HEMOGLOBIN 11.6(L) 14.0 - 18.0 g/dL 06/18/2025 3:48 AM [facility] HEMATOCRIT 35.4(L) 41.0 - 53.0 % 06/18/2025 3:48 AM [facility] MCV 95.2 84.0 - 103.0 fL 06/18/2025 3:48 AM [facility] MCH 31.2 27.0 - 34.0 pg 06/18/2025 3:48 AM [facility] MCHC 32.8 30.0 - 35.0 g/dL 06/18/2025 3:48 AM [facility] PLATELETS 101(L) 140 - 440 K/uL 06/18/2025 3:48 AM [facility] MPV 10.8 8.9 - 12.8 fL 06/18/2025 3:48 AM [facility] RDW 14.3 11.0 - 14.5 % 06/18/2025 3:48 AM [facility] RDW-STDEV 50.2 37.0 - 54.0 fL 06/18/2025 3:48 AM [facility] NEUTROPHILS 79(H) 42 - 75 % 06/18/2025 3:48 AM [facility] LYMPHOCYTES 8(L) 24 - 44 % 06/18/2025 3:48 AM [facility] MONOCYTES 10 2 - 10 % 06/18/2025 3:48 AM [facility] EOSINOPHILS 1 0 - 7 % 06/18/2025 3:48 AM [facility] BASOPHILS 1 0 - 1 % 06/18/2025 3:48 AM [facility] IMMATURE GRANULOCYTES 2 0 - 2 % 06/18/2025 3:48 AM [facility] NEUTROPHIL ABSOLUTE 8.59(H) 2.00 - 8.00 K/uL 06/18/2025 3:48 AM CDT [facility] LYMPHOCYTE ABSOLUTE 0.88(L) 1.20 - 4.00 K/uL 06/18/2025 3:48 AM CDT [facility] MONOCYTE ABSOLUTE 1.05(H) 0.10 - 0.60 K/uL 06/18/2025 3:48 AM CDT [facility] EOSINOPHIL ABSOLUTE 0.14 0.00 - 0.70 K/uL 06/18/2025 3:48 AM CDT [facility] BASOPHILS ABSOLUTE 0.05 0.00 - 0.20 K/uL 06/18/2025 3:48 AM CDT [facility] IMMATURE GRANULOCYTES ABSOLUTE 0.23(H) 0.00 - 0.10 K/uL 06/18/2025 3:48 AM CDT [facility] SMEAR REVIEWED: NN - No Action Needed 06/18/2025 3:48 AM CDT [facility] Blood Arterial / Unknown 3:36 AM CDT 06/18/2025 3:38 AM CDT us Karlie Hamilton MD HEMATOLOGY ORDERABLES Final Res ult [facility] CLIA # [id number] [address] [place] [id number] * (ABNORMAL) COMPREHENSIVE METABOLIC PANEL (06/18/2025 3:36 AM CDT) SODIUM 142 136 - 145 mmol/L 06/18/2025 4:20 AM CDT [facility] POTASSIUM 4.3 3.5 - 5.1 mmol/L 06/18/2025 4:20 AM CDT [facility] CHLORIDE 108(H) 98 - 107 mmol/L 06/18/2025 4:20 AM CDT [facility] CO2 23 22 - 29 mmol/L 06/18/2025 4:20 AM CDT [facility] CALCIUM 8.1(L) 8.8 - 10.2 mg/dL 06/18/2025 4:20 AM [facility] BUN 21 8 - 23 mg/dL 06/18/2025 4:20 AM [facility] CREATININE 0.68 0.67 - 1.17 mg/dL 06/18/2025 4:20 AM [facility] GLUCOSE 129(H) 74 - 99 mg/dL 06/18/2025 4:20 AM [facility] TOTAL PROTEIN 6.0(L) 6.4 - 8.3 g/dL 06/18/2025 4:20 AM [facility] ALBUMIN 3.0(L) 3.5 - 5.2 g/dL 06/18/2025 4:20 AM [facility] BILIRUBIN TOTAL 0.6 0.0 - 1.0 mg/dL 06/18/2025 4:20 AM [facility] ALKALINE PHOSPHATASE 176(H) 40 - 129 U/L 06/18/2025 4:20 AM [facility] AST 36 10 - 50 U/L 06/18/2025 4:20 AM [facility] ALT 38 <=50 U/L 06/18/2025 4:20 AM [facility] GFR >60 >=60 mL/min/1.7 3 sq meter 06/18/2025 4:20 AM [facility] Comment:eGFR calculated with 2020 CKD-EPI equation. Vegetarian diet, extremely high or low muscle mass, and may affect results. Cystatin C with Glomerular Filtration Rate is a suitable alternative for these patients. ANION GAP 11 9 - 20 mmol/L 06/18/2025 4:20 AM [facility] Blood Arterial / Unknown 3:36 AM CDT 06/18/2025 3:39 AM CDT us Karlie Hamilton MD CHEMISTRY ORDERABLES Final Resu lt [facility] CLIA # [id number] [id number] * MAGNESIUM LEVEL (06/18/2025 3:36 AM CDT) Pathologist [facility] [place] MAGNESIUM 2.2 1.6 - 2.4 mg/dL 06/18/2025 4:20 AM CDT [facility] Blood Arterial / Unknown 3:36 AM CDT 06/18/2025 3:39 AM CDT Karlie Hamilton MD CHEMISTRY ORDERABLES Final Resu lt [facility] CLIA # [id number] [address] [address] * PHOSPHORUS (06/18/2025 3:36 AM CDT) [facility] PHOSPHORUS 3.2 2.5 - 4.5 mg/dL 06/18/2025 4:20 AM CDT [facility] Blood Arterial / Unknown 3:36 AM CDT 06/18/2025 3:39 AM CDT us Karlie Hamilton MD CHEMISTRY ORDERABLES Final Resu lt [facility] CLIA # [id number] [address] [address] * (ABNORMAL) POC GLUCOSE (06/17/2025 11:04 PM CDT) Pathologist [facility] [place] GLUCOSE POC 123(H) 74 - 99 mg/dL 06/17/2025 11:04 PM CDT [facility] SPECIMEN SOURCE, GLUCOSE POC Arterial 06/17/2025 11:04 PM CDT [facility] Blood, whole 06/17/2025 11:0 4 PM CDT 06/17/2025 11:13 PM CDT Karlie Hamilton MD POINT OF CARE TESTING Final Res ult Performing Organization Address [facility] Co de Phone Number [facility] CLIA # [id number] [address] [id number] * POC LACTIC ACID (06/17/2025 11:01 PM CDT) LACTIC ACID POC 0.9 <=2.0 mmol/L 06/17/2025 11:01 PM CDT [facility] SPECIMEN SOURCE, GASES POC Arterial 06/17/2025 11:01 PM CDT [facility] SITE POC No Charge 06/17/2025 11:01 PM CDT [facility] Blood 06/17/2025 11:0 1 PM CDT 06/17/2025 11:03 PM CDT Narrative [facility] - 06/17/2025 11:01 PM CDT References ranges displayed are for Arterial samples. Karlie Hamilton MD POINT OF CARE TESTING Final Res ult Performing Organization Address [facility] Co de Phone Number [facility] CLIA # [id number] [address] [address] * (ABNORMAL) BLOOD GAS ARTERIAL (06/17/2025 11:01 PM CDT) Pathologist [facility] [place] PH BLOOD POC 7.42 7.35 - 7.45 06/17/2025 11:01 PM CDT [facility] PCO2 POC 38 35 - 45 mm Hg 06/17/2025 11:01 PM CDT [facility] PO2 POC 128(H) 80 - 105 mm Hg 06/17/2025 11:01 PM [facility] HCO3 (CALC) POC 25 22 - 26 mmol/L 06/17/2025 11:01 PM [facility] HEMOGLOBIN POC 9.8(L) 12.0 - 18.0 g/dL 06/17/2025 11:01 PM [facility] BASE EXCESS POC 0 -2 - 3 mmol/L 06/17/2025 11:01 PM [facility] O2 SATURATION POC 99(H) 95 - 98 % 025 11:01 PM [facility] SODIUM POC 140 138 - 146 mmol/L 06/17/2025 11:01 PM [facility] POTASSIUM POC 4.1 3.5 - 4.9 mmol/L 06/17/2025 11:01 PM [facility] HEMATOCRIT POC 29(L) 38 - 51 % 06/17/2025 11:01 PM [facility] PH TEMP CORRECT 7.42 7.35 - 7.45 06/17/2025 11:01 PM [facility] PCO2 TEMP CORRECT 38 35 - 45 mm Hg 06/17/2025 11:01 PM [facility] PO2 TEMP CORRECT 128(H) 80 - 105 mm Hg 06/17/2025 11:01 PM [facility] SPECIMEN SOURCE, GASES POC Arterial 06/17/2025 11:01 PM [facility] CALCIUM IONIZED POC 4.6(L) 4.8 - 5.2 mg/dL 06/17/2025 11:01 PM [facility] TCO2 (CALC) POC 26 23 - 27 mmol/L 06/17/2025 11:01 PM [facility] FIO2 60.0 21.0 - 100.0 % 06/17/2025 11:01 PM [facility] Comment:FIO2 values reported <21.0 indicate O2 flow in Liters/minute. Values >/= 21.0 indicate percent O2. P/F RATIO POC 213 06/17/2025 11:01 PM CDT [facility] Comment: P/F Ratio Interpretation ARDS SEVERITY PaO2/FiO2 Mild 200-300 Moderate 100-200 Severe <100 PEEP POC 14 06/17/2025 11:01 PM CDT [facility] PUNC SITE POC No Charge 06/17/2025 11:01 PM CDT [facility] PATIENT'S TEMPERATURE POC 37.0 degrees 06/17/2025 11:01 PM CDT [facility] Blood, arterial 06/17/2025 1 1:01 PM CDT 06/17/2025 11:03 PM CDT us Karlie Hamilton MD ABG ORDERABLES Final Result Performing Organization Address [facility] Co de Phone Number [facility] CLIA # [id number] [address] [address] * (ABNORMAL) POC GLUCOSE (06/17/2025 7:15 PM CDT) GLUCOSE POC 134(H) 74 - 99 mg/dL 06/17/2025 7:15 PM CDT [facility] SPECIMEN SOURCE, GLUCOSE POC Venous 06/17/2025 7:15 PM CDT [facility] Blood, whole 06/17/2025 7:15 PM CDT 06/17/2025 7:31 PM CDT us Karlie Hamilton MD POINT OF CARE TESTING Final Res ult Performing Organization Address City/[facility]/ZIP Co de Phone Number [facility] CLIA # [id number] [address] [address] * (ABNORMAL) POC GLUCOSE (06/17/2025 5:22 PM CDT) GLUCOSE POC 142(H) 74 - 99 mg/dL 06/17/2025 5:22 PM CDT [facility] SPECIMEN SOURCE, GLUCOSE POC Arterial 06/17/2025 5:22 PM CDT [facility] Blood, whole 06/17/2025 5:22 PM CDT 06/17/2025 7:31 PM CDT us Karlie Hamilton MD POINT OF CARE TESTING Final Res ult [facility] CLIA # [id number] [facility] [address] * (ABNORMAL) BASIC METABOLIC PANEL (06/17/2025 5:20 PM CDT) SODIUM 141 136 - 145 mmol/L 06/17/2025 6:10 PM CDT [facility] POTASSIUM 3.4(L) 3.5 - 5.1 mmol/L 06/17/2025 6:10 PM CDT [facility] CHLORIDE 106 98 - 107 mmol/L 06/17/2025 6:10 PM CDT [facility] CO2 23 22 - 29 mmol/L 06/17/2025 6:10 PM CDT [facility] CALCIUM 8.4(L) 8.8 - 10.2 mg/dL 06/17/2025 6:10 PM CDT [facility] BUN 23 8 - 23 mg/dL 06/17/2025 6:10 PM CDT [facility] CREATININE 0.70 0.67 - 1.17 mg/dL 06/17/2025 6:10 PM CDT [facility] GLUCOSE 146(H) 74 - 99 mg/dL 06/17/2025 6:10 PM CDT [facility] GFR >60 >=60 mL/min/1.7 3 sq meter 06/17/2025 6:10 PM CDT [facility] Comment:eGFR calculated with 2020 CKD-EPI equation. Vegetarian diet, extremely high or low muscle mass, and may affect results. Cystatin C with Glomerular Filtration Rate is a suitable alternative for these patients. ANION GAP 12 9 - 20 mmol/L 06/17/2025 6:10 PM CDT [facility] Blood Venipuncture / Unknown 06/17/2025 5:20 PM CDT 06/17/2025 5:31 PM CDT Karlei Hamilton MD CHEMISTRY ORDERABLES Final Resu lt Performing Organization Address [facility]/ZIP Co de Phone Number [facility] CLIA # [id number] [address] [id number] * POC LACTIC ACID (06/17/2025 5:19 PM CDT) LACTIC ACID POC 0.7 <=2.0 mmol/L 06/17/2025 5:19 PM CDT [facility] SPECIMEN SOURCE, GASES POC Arterial 06/17/2025 5:19 PM CDT [facility] SITE POC No Charge 06/17/2025 5:19 PM CDT [facility] Blood 06/17/2025 5:19 PM CDT 06/17/2025 5:21 PM CDT Narrative [facility] - 06/17/2025 5:19 PM CDT References ranges displayed are for Arterial samples. Karlie Hamilton MD POINT OF CARE TESTING Final Res ult Performing Organization Address [facility] Co de Phone Number [facility] CLIA # [id number] [address] [id number] * (ABNORMAL) BLOOD GAS ARTERIAL (06/17/2025 5:19 PM CDT) PH BLOOD POC 7.33(L) 7.35 - 7.45 06/17/2025 5:19 PM [facility] PCO2 POC 47(H) 35 - 45 mm Hg 06/17/2025 5:19 PM [facility] PO2 POC 72(L) 80 - 105 mm Hg 06/17/2025 5:19 PM [facility] HCO3 (CALC) POC 25 22 - 26 mmol/L 06/17/2025 5:19 PM [facility] HEMOGLOBIN POC 9.9(L) 12.0 - 18.0 g/dL 06/17/2025 5:19 PM [facility] BASE EXCESS POC -1 -2 - 3 mmol/L 06/17/2025 5:19 PM [facility] O2 SATURATION POC 95 95 - 98 % 5:19 PM [facility] SODIUM POC 138 138 - 146 mmol/L 06/17/2025 5:19 PM [facility] POTASSIUM POC 3.3(L) 3.5 - 4.9 mmol/L 06/17/2025 5:19 PM [facility] HEMATOCRIT POC 30(L) 38 - 51 % 06/17/2025 5:19 PM [facility] PH TEMP CORRECT 7.33(L) 7.35 - 7.45 06/17/2025 5:19 PM [facility] PCO2 TEMP CORRECT 47(H) 35 - 45 mm Hg 06/17/2025 5:19 PM [facility] PO2 TEMP CORRECT 72(L) 80 - 105 mm Hg 06/17/2025 5:19 PM [facility] SPECIMEN SOURCE, GASES POC Arterial 06/17/2025 5:19 PM [facility] CALCIUM IONIZED POC 4.8 4.8 - 5.2 mg/dL 06/17/2025 5:19 PM [facility] TCO2 (CALC) POC 26 23 - 27 mmol/L 06/17/2025 5:19 PM [facility] FIO2 60.0 21.0 - 100.0 % 06/17/2025 5:19 PM CDT [facility] Comment:FIO2 values reported <21.0 indicate O2 flow in Liters/minute. Values >/= 21.0 indicate percent O2. P/F RATIO POC 120 06/17/2025 5:19 PM CDT [facility] Comment: P/F Ratio Interpretation ARDS SEVERITY PaO2/FiO2 Mild 200-300 Moderate 100-200 Severe <100 PEEP POC 10 06/17/2025 5:19 PM CDT [facility] SITE POC No Charge 06/17/2025 5:19 PM CDT [facility] PATIENT'S TEMPERATURE POC 37.0 degrees 06/17/2025 5:19 PM CDT [facility] Blood, arterial 06/17/2025 5 :19 PM CDT 06/17/2025 5:21 PM CDT Karlie Hamilton MD ABG ORDERABLES Final Result Performing Organization Address [facility]/ZIP Co de Phone Number [facility] CLIA # [id number] [address] [place] [address] * POC LACTIC ACID (06/17/2025 3:38 PM CDT) LACTIC ACID POC 0.7 <=2.0 mmol/L 06/17/2025 3:38 PM CDT [facility] SPECIMEN SOURCE, GASES POC Arterial 06/17/2025 3:38 PM CDT [facility] SITE POC No Charge 06/17/2025 3:38 PM CDT [facility] Blood 06/17/2025 3:38 PM CDT 06/17/2025 3:39 PM CDT Narrative [facility] - 06/17/2025 3:38 PM CDT References ranges displayed are for Arterial samples. us Karlie Hamilton MD POINT OF CARE TESTING Final Res ult Performing Organization Address City/[facility]/ZIP Co de Phone Number [facility] CLIA # [id number] [address] [address] [place] [address] * (ABNORMAL) BLOOD GAS,(INCL. H+H, LYTES, GLUC) (06/17/2025 3:38 PM CDT) PH BLOOD POC 7.47(H) 7.35 - 7.45 06/17/2025 3:38 PM CDT [facility] PCO2 POC 35 35 - 45 mm Hg 06/17/2025 3:38 PM CDT [facility] PO2 POC 70(L) 80 - 105 mm Hg 06/17/2025 3:38 PM CDT [facility] TCO2 (CALC) POC 27 23 - 27 mmol/L 06/17/2025 3:38 PM CDT [facility] HCO3 (CALC) POC 26 22 - 26 mmol/L 06/17/2025 3:38 PM CDT [facility] O2 SATURATION POC 98 95 - 98 % 06/17/2025 3:38 PM CDT [facility] BASE EXCESS POC 2 -2 - 3 mmol/L 06/17/2025 3:38 PM CDT [facility] HEMOGLOBIN POC 9.0(L) 12.0 - 18.0 g/dL 06/17/2025 3:38 PM CDT [facility] HEMATOCRIT POC 27(L) 38 - 51 % 06/17/2025 3:38 PM CDT [facility] GLUCOSE POC 139(H) 74 - 99 mg/dL 06/17/2025 3:38 PM CDT [facility] SODIUM POC 139 138 - 146 mmol/L 06/17/2025 3:38 PM CDT [facility] POTASSIUM POC 3.3(L) 3.5 - 4.9 mmol/L 06/17/2025 3:38 PM CDT [facility] CALCIUM IONIZED POC 4.7(L) 4.8 - 5.2 mg/dL 06/17/2025 3:38 PM CDT [facility] PH TEMP CORRECT 7.47(H) 7.35 - 7.45 06/17/20 3:38 PM CDT [facility] PCO2 TEMP CORRECT 35 35 - 45 mm Hg 06/17/2025 3:38 PM CDT [facility] PO2 TEMP CORRECT 70(L) 80 - 105 mm Hg 06/17/2025 3:38 PM CDT [facility] SPECIMEN SOURCE, GASES POC Arterial 06/17/2025 3:38 PM CDT [facility] PATIENT'S TEMPERATURE POC 37.0 degrees 06/17/2025 3:38 PM CDT [facility] PUNC SITE POC No Charge 06/17/2025 3:38 PM CDT [facility] Blood, arterial 06/17/2025 3 :38 PM CDT 06/17/2025 3:39 PM CDT us Karlie Hamilton MD ABG ORDERABLES Final Result Performing Organization Address City/[facility]/ZIP Co de Phone Number [facility] CLIA # [id number] [address] [address] * (ABNORMAL) POC GLUCOSE (06/17/2025 12:43 PM CDT) GLUCOSE POC 124(H) 74 - 99 mg/dL 06/17/2025 12:43 PM CDT [facility] SPECIMEN SOURCE, GLUCOSE POC Arterial 06/17/2025 12:43 PM CDT [facility] Blood, whole 06/17/2025 12:4 3 PM CDT 06/17/2025 3:23 PM CDT Karlie Hamilton MD POINT OF CARE TESTING Final Res ult [facility] CLIA # [id number] [address] [place] [address] * XR CHEST PA OR AP 1 VW (06/17/2025 10:29 AM CDT) Anatomical Region Laterality Modality Chest Computed Radiogr aphy 06/17/2025 10:2 9 AM CDT Impressions 06/17/2025 10:53 AM CDT IMPRESSION: Atelectasis and/or infiltrate in the lower lungs bilaterally, more evident on the left. No pneumothorax. Possible left pleural effusion. ECMO cannula with tip in the mid right atrium. Femoral approach transvenous pacer wire with tip in the right ventricle. Pulmonary vascular congestion. ETT with tip in the mid thoracic trachea. Intraaortic balloon pump with radiopaque marker projected over the descending thoracic aorta. Guinda-Chelsie catheter with tip in the main pulmonary artery. NG tube with tip below the diaphragm. Remainder unremarkable. Narrative 06/17/2025 10:53 AM CDT Exam: Radiographs: XR CHEST PA OR AP 1 VW Indication: ST elevation myocardial infarction (STEMI), unspecified artery; Cardiac arrest with ventricular fibrillation (CMS/HCC); Cardiac arrest with ventricular fibrillation (CMS/HCC); CHB (complete heart block); Laboratory test; Patient receiving extracorporeal membrane oxygenation (ECMO) Comparison: Chest x-ray dated 06/17/2025 Procedure Note Karl Izaguirre MD - 06/17/2025 Exam: Radiographs: XR CHEST PA OR AP 1 VW Indication: ST elevation myocardial infarction (STEMI), unspecified artery; Cardiac arrest with ventricular fibrillation (CMS/HCC); Cardiac arrest with ventricular fibrillation (CMS/HCC); CHB (complete heart block); Laboratory test; Patient receiving extracorporeal membrane oxygenation (ECMO) Comparison: Chest x-ray dated 06/17/2025 IMPRESSION: Atelectasis and/or infiltrate in the lower lungs bilaterally, more evident on the left. No pneumothorax. Possible left pleural effusion. ECMO cannula with tip in the mid right atrium. Femoral approach transvenous pacer wire with tip in the right ventricle. Pulmonary vascular congestion. ETT with tip in the mid thoracic trachea. Intraaortic balloon pump with radiopaque marker projected over the descending thoracic aorta. Guinda-Chelsie catheter with tip in the main pulmonary artery. NG tube with tip below the diaphragm. Remainder unremarkable. us Karlie Hamilton MD DIAGNOSTIC IMAGING ORDERABLES F inal Result * XR ABDOMEN 1 VW (06/17/2025 10:29 AM CDT) Anatomical Region Laterality Modality Abdomen Computed Radiogr aphy 06/17/2025 10:2 9 AM CDT Impressions 06/17/2025 10:54 AM CDT IMPRESSION: No gas filled dilated loops of small bowel or colon. No fecal impaction. No gaseous dilation of the stomach. NG tube with tip in the proximal stomach. Left femoral approach ECMO cannulas, one of these has its tip in the right atrium and the other has its tip in at the level of the external iliac vasculature. Right femoral approach transvenous pacer wire. Right femoral vascular sheath with tip at the level of the extrailiac vasculature. Orta catheter. Remainder unremarkable. Narrative 06/17/2025 10:54 AM CDT Exam: Radiographs: XR ABDOMEN 1 VW Indication: ST elevation myocardial infarction (STEMI), unspecified artery; Cardiac arrest with ventricular fibrillation (CMS/HCC); Cardiac arrest with ventricular fibrillation (CMS/HCC); CHB (complete heart block); Laboratory test; Patient receiving extracorporeal membrane oxygenation (ECMO) Comparison: Plain films dated 06/12/2025 Procedure Note Karl Izaguirre MD - 06/17/2025 Exam: Radiographs: XR ABDOMEN 1 VW Indication: ST elevation myocardial infarction (STEMI), unspecified artery; Cardiac arrest with ventricular fibrillation (CMS/HCC); Cardiac arrest with ventricular fibrillation (CMS/HCC); CHB (complete heart block); Laboratory test; Patient receiving extracorporeal membrane oxygenation (ECMO) Comparison: Plain films dated 06/12/2025 IMPRESSION: No gas filled dilated loops of small bowel or colon. No fecal impaction. No gaseous dilation of the stomach. NG tube with tip in the proximal stomach. Left femoral approach ECMO cannulas, one of these has its tip in the right atrium and the other has its tip in at the level of the external iliac vasculature. Right femoral approach transvenous pacer wire. Right femoral vascular sheath with tip at the level of the extrailiac vasculature. Orta catheter. Remainder unremarkable. us Karlie Hamilton MD DIAGNOSTIC IMAGING ORDERABLES F inal Result * (ABNORMAL) PTT (06/17/2025 9:55 AM CDT) Pathologist [facility] [place] PTT 48.4(H) 24.8 - 37.2 seconds 06/17/2025 10:29 AM CDT [facility] Blood Venipuncture / Unknown 06/17/2025 9:55 AM CDT 06/17/2025 10:14 AM CDT Narrative [facility] - 06/17/2025 10:29 AM CDT Therapeutic Range: Hi-level PE/DVT heparin protocol 80.1 - 95.0 sec Lo-level PE/DVT heparin protocol 70.1 - 85.0 sec Cardiac Heparin Protocol 70.1 - 100.0 sec us Karlie Hamilton MD HEMATOLOGY ORDERABLES Final Res ult Performing Organization Address City/[facility]/ZIP Co de Phone Number [facility] CLIA # [id number] [address] [address] [place] [address] * (ABNORMAL) POC GLUCOSE (06/17/2025 9:53 AM CDT) Pathologist [facility] [place] GLUCOSE POC 129(H) 74 - 99 mg/dL 06/17/2025 9:53 AM CDT [facility] SPECIMEN SOURCE, GLUCOSE POC Arterial 06/17/2025 9:53 AM CDT [facility] Blood, whole 06/17/2025 9:53 AM CDT 06/17/2025 3:23 PM CDT us Karlie Hamilton MD POINT OF CARE TESTING Final Res ult Performing Organization Address City/[facility] Co de Phone Number [facility] CLIA # [id number] [address] [facility] [place] [address] * POC LACTIC ACID (06/17/2025 6:05 AM CDT) Pathologist [facility] [place] LACTIC ACID POC 0.6 <=2.0 mmol/L 06/17/2025 6:05 AM T [facility] SPECIMEN SOURCE, GASES POC Arterial 06/17/2025 6:05 AM CDT [facility] SITE POC No Charge 06/17/2025 6:05 AM T [facility] Blood 06/17/2025 6:05 AM CDT 06/17/2025 6:07 AM CDT [facility] - 06/17/2025 6:05 AM CDT References ranges displayed are for Arterial samples. us Karlie Hamilton MD POINT OF CARE TESTING Final Res ult [facility] CLIA # [id number] [address] [place] [address] * (ABNORMAL) BLOOD GAS ARTERIAL (06/17/2025 6:05 AM CDT) [facility] PH BLOOD POC 7.43 7.35 - 7.45 06/17/2025 6:05 AM T [facility] PCO2 POC 38 35 - 45 mm Hg 06/17/2025 6:05 AM [facility] PO2 POC 83 80 - 105 mm Hg 06/17/2025 6:05 AM T [facility] HCO3 (CALC) POC 25 22 - 26 mmol/L 06/17/2025 6:05 AM [facility] HEMOGLOBIN POC 9.0(L) 12.0 - 18.0 g/dL 06/17/2025 6:05 AM T [facility] BASE EXCESS POC 1 -2 - 3 mmol/L 06/17/2025 6:05 AM [facility] O2 SATURATION POC 99(H) 95 - 98 % 025 6:05 AM [facility] SODIUM POC 139 138 - 146 mmol/L 06/17/2025 6:05 AM [facility] POTASSIUM POC 3.7 3.5 - 4.9 mmol/L 06/17/2025 6:05 AM [facility] HEMATOCRIT POC 27(L) 38 - 51 % 06/17/2025 6:05 AM [facility] PH TEMP CORRECT 7.43 7.35 - 7.45 06/17/2025 6:05 AM [facility] PCO2 TEMP CORRECT 38 35 - 45 mm Hg 06/17/2025 6:05 AM [facility] PO2 TEMP CORRECT 83 80 - 105 mm Hg 06/17/2025 6:05 AM [facility] SPECIMEN SOURCE, GASES POC Arterial 06/17/2025 6:05 AM [facility] CALCIUM IONIZED POC 5.1 4.8 - 5.2 mg/dL 06/17/2025 6:05 AM [facility] TCO2 (CALC) POC 26 23 - 27 mmol/L 06/17/2025 6:05 AM [facility] FIO2 50.0 21.0 - 100.0 % 06/17/2025 6:05 AM [facility] Comment:FIO2 values reported <21.0 indicate O2 flow in Liters/minute. Values >/= 21.0 indicate percent O2. P/F RATIO POC 166 06/17/2025 6:05 AM [facility] Comment: P/F Ratio Interpretation ARDS SEVERITY PaO2/FiO2 Mild 200-300 Moderate 100-200 Severe <100 PEEP POC 10 06/17/2025 6:05 AM [facility] PUNC SITE POC No Charge 06/17/2025 6:05 AM [facility] PATIENT'S TEMPERATURE POC 37.0 degrees 06/17/2025 6:05 AM [facility] SWEEP POC 2 L/min 06/17/2025 6:05 AM [facility] ECMO FIO2 POC 100 % 06/17/2025 6:05 AM CDT [facility] ECMO FLOW POC 3 L/min 06/17/2025 6:05 AM CDT [facility] Blood, arterial 06/17/2025 6 :05 AM CDT 06/17/2025 6:07 AM CDT Karlie Hamilton MD ABG ORDERABLES Final Result [facility] CLIA # [id number] [address] [address] [place] [address] * XR CHEST PA OR AP 1 VW (06/17/2025 4:46 AM CDT) Anatomical Region Laterality Modality Chest Computed Radiogr aphy 06/17/2025 4:31 AM CDT Impressions 06/17/2025 7:10 AM CDT IMPRESSION: Atelectasis and/or infiltrate in the left lower lung. Small left pleural effusion. No pneumothorax. ECMO cannula with tip in the mid right atrium. Transvenous venous femoral approach pacer wire with tip in the right ventricle. ETT with tip in the mid thoracic trachea. Guinda-Chelsie catheter with tip in the right pulmonary artery. Pulmonary vascular congestion. Remainder unremarkable. Narrative 06/17/2025 7:10 AM CDT Exam: Radiographs: XR CHEST PA OR AP 1 VW Indication: ST elevation myocardial infarction (STEMI), unspecified artery; Cardiac arrest with ventricular fibrillation (CMS/HCC); Cardiac arrest with ventricular fibrillation (CMS/HCC); CHB (complete heart block); Laboratory test; Patient receiving extracorporeal membrane oxygenation (ECMO) Comparison: Chest x-ray dated 06/16/2025 Procedure Note Karl Izaguirre MD - 06/17/2025 Exam: Radiographs: XR CHEST PA OR AP 1 VW Indication: ST elevation myocardial infarction (STEMI), unspecified artery; Cardiac arrest with ventricular fibrillation (CMS/HCC); Cardiac arrest with ventricular fibrillation (CMS/HCC); CHB (complete heart block); Laboratory test; Patient receiving extracorporeal membrane oxygenation (ECMO) Comparison: Chest x-ray dated 06/16/2025 IMPRESSION: Atelectasis and/or infiltrate in the left lower lung. Small left pleural effusion. No pneumothorax. ECMO cannula with tip in the mid right atrium. Transvenous venous femoral approach pacer wire with tip in the right ventricle. ETT with tip in the mid thoracic trachea. Guinda-Chelsie catheter with tip in the right pulmonary artery. Pulmonary vascular congestion. Remainder unremarkable. us Karlie Hamilton MD DIAGNOSTIC IMAGING ORDERABLES F inal Result * (ABNORMAL) HAPTOGLOBIN (06/17/2025 3:14 AM CDT) HAPTOGLOBIN 255(H) 30 - 200 mg/dL 06/17/2025 4:03 AM CDT [facility] Blood Arterial / Unknown 3:14 AM CDT 06/17/2025 3:24 AM CDT Zenaida Michel MD CHEMISTRY ORDERABLES Final Resul t [facility] # [id number] [address] [place] [id number] * (ABNORMAL) PTT (06/17/2025 3:14 AM CDT) PTT 47.7(H) 24.8 - 37.2 seconds 06/17/2025 3:38 AM CDT [facility] Blood Arterial / Unknown 3:14 AM CDT 06/17/2025 3:24 AM CDT Narrative [facility] - 06/17/2025 3:38 AM CDT Therapeutic Range: Hi-level PE/DVT heparin protocol 80.1 - 95.0 sec Lo-level PE/DVT heparin protocol 70.1 - 85.0 sec Cardiac Heparin Protocol 70.1 - 100.0 sec us Karlie Hamilton MD HEMATOLOGY ORDERABLES Final Res ult Performing Organization Address City/[facility]/ZIP Co de Phone Number [facility] CLIA # [id number] [address] * PHOSPHORUS (06/17/2025 3:14 AM CDT) PHOSPHORUS 2.7 2.5 - 4.5 mg/dL 06/17/2025 4:03 AM CDT [facility] Blood Arterial / Unknown 3:14 AM CDT 06/17/2025 3:24 AM CDT us Zenaida Michel MD CHEMISTRY ORDERABLES Final Resul t Performing Organization Address [facility] Co de Phone Number [facility] CLIA # [id number] [id number] * MAGNESIUM LEVEL (06/17/2025 3:14 AM CDT) MAGNESIUM 2.2 1.6 - 2.4 mg/dL 06/17/2025 4:03 AM CDT [facility] Blood Arterial / Unknown 3:14 AM CDT 06/17/2025 3:24 AM CDT Zenaida Michel MD CHEMISTRY ORDERABLES Final Resul t Performing Organization Address City/[facility] Co de Phone Number [facility] CLIA # [id number] [address] [address] * (ABNORMAL) COMPREHENSIVE METABOLIC PANEL (06/17/2025 3:14 AM CDT) SODIUM 141 136 - 145 mmol/L 06/17/2025 4:03 AM [facility] POTASSIUM 3.8 3.5 - 5.1 mmol/L 06/17/2025 4:03 AM [facility] CHLORIDE 108(H) 98 - 107 mmol/L 06/17/2025 4:03 AM [facility] CO2 22 22 - 29 mmol/L 06/17/2025 4:03 AM [facility] CALCIUM 8.6(L) 8.8 - 10.2 mg/dL 06/17/2025 4:03 AM [facility] BUN 27(H) 8 - 23 mg/dL 06/17/2025 4:03 AM [facility] CREATININE 0.68 0.67 - 1.17 mg/dL 06/17/2025 4:03 AM [facility] GLUCOSE 171(H) 74 - 99 mg/dL 06/17/2025 4:03 AM [facility] TOTAL PROTEIN 5.7(L) 6.4 - 8.3 g/dL 06/17/2025 4:03 AM [facility] ALBUMIN 2.9(L) 3.5 - 5.2 g/dL 06/17/2025 4:03 AM [facility] BILIRUBIN TOTAL 0.5 0.0 - 1.0 mg/dL 06/17/2025 4:03 AM [facility] ALKALINE PHOSPHATASE 145(H) 40 - 129 U/L 06/17/2025 4:03 AM [facility] AST 41 10 - 50 U/L 06/17/2025 4:03 AM [facility] ALT 42 <=50 U/L 06/17/2025 4:03 AM [facility] GFR >60 >=60 mL/min/1.7 3 sq meter 06/17/2025 4:03 AM [facility] Comment:eGFR calculated with 2020 CKD-EPI equation. Vegetarian diet, extremely high or low muscle mass, and may affect results. Cystatin C with Glomerular Filtration Rate is a suitable alternative for these patients. ANION GAP 11 9 - 20 mmol/L 06/17/2025 4:03 AM CDT [facility] Blood Arterial / Unknown 3:14 AM CDT 06/17/2025 3:24 AM CDT us Zenaida Michel MD CHEMISTRY ORDERABLES Final Resul t [facility] CLIA # [id number] [address] [address] [place] [address] * (ABNORMAL) CBC WITH DIFFERENTIAL (06/17/2025 3:14 AM CDT) Pathologist [facility] [place] WBC 11.1(H) 4.8 - 10.8 K/uL 06/17/2025 3:33 AM CDT [facility] RBC 2.73(L) 4.60 - 6.20 M/uL 06/17/2025 3:33 AM CDT [facility] HEMOGLOBIN 8.5(L) 14.0 - 18.0 g/dL 06/17/2025 3:33 AM CDT [facility] HEMATOCRIT 26.3(L) 41.0 - 53.0 % 06/17/2025 3:33 AM CDT [facility] MCV 96.3 84.0 - 103.0 fL 06/17/2025 3:33 AM CDT [facility] MCH 31.1 27.0 - 34.0 pg 06/17/2025 3:33 AM CDT [facility] MCHC 32.3 30.0 - 35.0 g/dL 06/17/2025 3:33 AM CDT [facility] PLATELETS 96(L) 140 - 440 K/uL 06/17/2025 3:33 AM CDT [facility] MPV 10.7 8.9 - 12.8 fL 06/17/2025 3:33 AM CDT [facility] RDW 14.4 11.0 - 14.5 % 06/17/2025 3:33 AM [facility] RDW-STDEV 50.4 37.0 - 54.0 fL 06/17/2025 3:33 AM T [facility] NEUTROPHILS 72 42 - 75 % 06/17/2025 3:33 AM [facility] LYMPHOCYTES 14(L) 24 - 44 % 06/17/2025 3:33 AM [facility] MONOCYTES 10 2 - 10 % 06/17/2025 3:33 AM T [facility] EOSINOPHILS 2 0 - 7 % 06/17/2025 3:33 AM [facility] BASOPHILS 1 0 - 1 % 06/17/2025 3:33 AM [facility] IMMATURE GRANULOCYTES 2 0 - 2 % 06/17/2025 3:33 AM [facility] NEUTROPHIL ABSOLUTE 8.03(H) 2.00 - 8.00 K/uL 06/17/2025 3:33 AM [facility] LYMPHOCYTE ABSOLUTE 1.53 1.20 - 4.00 K/uL 06/17/2025 3:33 AM [facility] MONOCYTE ABSOLUTE 1.08(H) 0.10 - 0.60 K/uL 06/17/2025 3:33 AM [facility] EOSINOPHIL ABSOLUTE 0.21 0.00 - 0.70 K/uL 06/17/2025 3:33 AM [facility] BASOPHILS ABSOLUTE 0.06 0.00 - 0.20 K/uL 06/17/2025 3:33 AM [facility] IMMATURE GRANULOCYTES ABSOLUTE 0.21(H) 0.00 - 0.10 K/uL 06/17/2025 3:33 AM [facility] SMEAR REVIEWED: NN - No Action Needed 06/17/2025 3:33 AM [facility] Blood Arterial / Unknown 3:14 AM CDT 06/17/2025 3:24 AM CDT Zenaida Michel MD HEMATOLOGY ORDERABLES Final Resu lt Performing Organization Address [facility] Co de Phone Number [facility] CLIA # [id number] [address] [place] [facility] [place] [place] [address] * (ABNORMAL) POC GLUCOSE (06/17/2025 3:13 AM CDT) GLUCOSE POC 173(H) 74 - 99 mg/dL 06/17/2025 3:13 AM CDT [facility] SPECIMEN SOURCE, GLUCOSE POC Arterial 06/17/2025 3:13 AM CDT [facility] Blood, whole 06/17/2025 3:13 AM CDT 06/19/2025 12:10 AM CDT us Karlie Hamilton MD POINT OF CARE TESTING Final Res ult Performing Organization Address [facility] Co de Phone Number [facility] CLIA # [id number] [address] [address] [place], [place] [address] * (ABNORMAL) POC GLUCOSE (06/16/2025 11:10 PM CDT) GLUCOSE POC 118(H) 74 - 99 mg/dL 06/16/2025 11:10 PM CDT [facility] SPECIMEN SOURCE, GLUCOSE POC Arterial 06/16/2025 11:10 PM CDT [facility] Blood, whole 06/16/2025 11:1 0 PM CDT 06/17/2025 12:02 AM CDT Karlie Hamilton MD POINT OF CARE TESTING Final Res ult Performing Organization Address [facility] Co de Phone Number [facility] CLIA # [id number] [address] [place] [address] * POC LACTIC ACID (06/16/2025 11:08 PM CDT) Pathologist [facility] [place] LACTIC ACID POC 1.0 <=2.0 mmol/L 06/16/2025 11:08 PM CDT [facility] SPECIMEN SOURCE, GASES POC Arterial 06/16/2025 11:08 PM CDT [facility] PUNC SITE POC No Charge 06/16/2025 11:08 PM CDT [facility] Blood 06/16/2025 11:0 8 PM CDT 06/16/2025 11:09 PM CDT Narrative [facility] - 06/16/2025 11:08 PM CDT References ranges displayed are for Arterial samples. us Karlie Hamilton MD POINT OF CARE TESTING Final Res ult [facility] CLIA # [id number] [address] [place] [address] * (ABNORMAL) BLOOD GAS ARTERIAL (06/16/2025 11:08 PM CDT) Pathologist [facility] [place] PH BLOOD POC 7.41 7.35 - 7.45 06/16/2025 11:08 PM CDT [facility] PCO2 POC 40 35 - 45 mm Hg 06/16/2025 11:08 PM T [facility] PO2 POC 201(H) 80 - 105 mm Hg 06/16/2025 11:08 PM CDT [facility] HCO3 (CALC) POC 25 22 - 26 mmol/L 06/16/2025 11:08 PM CDT [facility] HEMOGLOBIN POC 9.3(L) 12.0 - 18.0 g/dL 06/16/2025 11:08 PM CDT [facility] BASE EXCESS POC 1 -2 - 3 mmol/L 06/16/2025 11:08 PM CDT [facility] O2 SATURATION POC 100(H) 95 - 98 % 025 11:08 PM [facility] SODIUM POC 138 138 - 146 mmol/L 06/16/2025 11:08 PM [facility] POTASSIUM POC 3.9 3.5 - 4.9 mmol/L 06/16/2025 11:08 PM [facility] HEMATOCRIT POC 28(L) 38 - 51 % 06/16/2025 11:08 PM [facility] PH TEMP CORRECT 7.41 7.35 - 7.45 06/16/2025 11:08 PM [facility] PCO2 TEMP CORRECT 40 35 - 45 mm Hg 06/16/2025 11:08 PM [facility] PO2 TEMP CORRECT 201(H) 80 - 105 mm Hg 06/16/2025 11:08 PM [facility] SPECIMEN SOURCE, GASES POC Arterial 06/16/2025 11:08 PM [facility] CALCIUM IONIZED POC 5.1 4.8 - 5.2 mg/dL 06/16/2025 11:08 PM [facility] TCO2 (CALC) POC 27 23 - 27 mmol/L 06/16/2025 11:08 PM [facility] FIO2 50.0 21.0 - 100.0 % 06/16/2025 11:08 PM [facility] Comment:FIO2 values reported <21.0 indicate O2 flow in Liters/minute. Values >/= 21.0 indicate percent O2. P/F RATIO POC 402 06/16/2025 11:08 PM [facility] Comment: P/F Ratio Interpretation ARDS SEVERITY PaO2/FiO2 Mild 200-300 Moderate 100-200 Severe <100 PEEP POC 10 06/16/2025 11:08 PM [facility] PUNC SITE POC No Charge 06/16/2025 11:08 PM [facility] PATIENT'S TEMPERATURE POC 37.0 degrees 06/16/2025 11:08 PM [facility] SWEEP POC 2 L/min 06/16/2025 11:08 PM [facility] ECMO FIO2 POC 100 % 06/16/2025 11:08 PM CDT [facility] ECMO FLOW POC 4 L/min 06/16/2025 11:08 PM CDT [facility] Blood, arterial 06/16/2025 1 1:08 PM CDT 06/16/2025 11:09 PM CDT Karlie Hamilton MD ABG ORDERABLES Final Result Performing Organization Address [facility] Co de Phone Number [facility] CLIA # [id number] [address] [address] * (ABNORMAL) PTT (06/16/2025 8:26 PM CDT) PTT 49.1(H) 24.8 - 37.2 seconds 06/16/2025 8:45 PM CDT [facility] Blood Arterial / Unknown 8:26 PM CDT 06/16/2025 8:31 PM CDT Narrative [facility] - 06/16/2025 8:45 PM CDT Therapeutic Range: Hi-level PE/DVT heparin protocol 80.1 - 95.0 sec Lo-level PE/DVT heparin protocol 70.1 - 85.0 sec Cardiac Heparin Protocol 70.1 - 100.0 sec Karlie Hamilton MD HEMATOLOGY ORDERABLES Final Res ult Performing Organization Address [facility] Co de Phone Number [facility] CLIA # [id number] [address] [address] * (ABNORMAL) POC GLUCOSE (06/16/2025 8:25 PM CDT) GLUCOSE POC 190(H) 74 - 99 mg/dL 06/16/2025 8:25 PM CDT [facility] SPECIMEN SOURCE, GLUCOSE POC Arterial 06/16/2025 8:25 PM CDT [facility] Blood, whole 06/16/2025 8:25 PM CDT 06/17/2025 12:01 AM CDT Karlie Hamilton MD POINT OF CARE TESTING Final Res ult Performing Organization Address [facility] Co de Phone Number [facility] CLIA # [id number] [address] [place] [address] * (ABNORMAL) POC GLUCOSE (06/16/2025 4:59 PM CDT) GLUCOSE POC 133(H) 74 - 99 mg/dL 06/16/2025 4:59 PM CDT [facility] SPECIMEN SOURCE, GLUCOSE POC Arterial 06/16/2025 4:59 PM CDT [facility] Blood, whole 06/16/2025 4:59 PM CDT 06/16/2025 5:06 PM CDT us Karlie Hamilton MD POINT OF CARE TESTING Final Res ult Performing Organization Address [facility] Co de Phone Number [facility] CLIA # [id number] [address] [place] [address] * POC LACTIC ACID (06/16/2025 3:06 PM CDT) LACTIC ACID POC 0.7 <=2.0 mmol/L 06/16/2025 3:06 PM CDT [facility] SPECIMEN SOURCE, GASES POC Arterial 06/16/2025 3:06 PM CDT [facility] SITE POC No Charge 06/16/2025 3:06 PM CDT [facility] Blood 06/16/2025 3:06 PM CDT 06/16/2025 3:07 PM CDT Narrative [facility] - 06/16/2025 3:06 PM CDT References ranges displayed are for Arterial samples. us Karlie Hamilton MD POINT OF CARE TESTING Final Res ult [facility] CLIA # [id number] [facility] [address] [address] [place] [address] * (ABNORMAL) BLOOD GAS ARTERIAL (06/16/2025 3:06 PM CDT) PH BLOOD POC 7.43 7.35 - 7.45 06/16/2025 3:06 PM CDT [facility] PCO2 POC 38 35 - 45 mm Hg 06/16/2025 3:06 PM CDT [facility] PO2 POC 71(L) 80 - 105 mm Hg 06/16/2025 3:06 PM T [facility] HCO3 (CALC) POC 25 22 - 26 mmol/L 06/16/2025 3:06 PM T [facility] HEMOGLOBIN POC 9.1(L) 12.0 - 18.0 g/dL 06/16/2025 3:06 PM T [facility] BASE EXCESS POC 1 -2 - 3 mmol/L 06/16/2025 3:06 PM T [facility] O2 SATURATION POC 97 95 - 98 % 06/16/2025 3:06 PM T [facility] SODIUM POC 138 138 - 146 mmol/L 06/16/2025 3:06 PM CDT [facility] POTASSIUM POC 3.6 3.5 - 4.9 mmol/L 06/16/2025 3:06 PM CDT [facility] HEMATOCRIT POC 27(L) 38 - 51 % 06/16/2025 3:06 PM CDT [facility] PH TEMP CORRECT 7.43 7.35 - 7.45 06/16/20 3:06 PM CDT [facility] PCO2 TEMP CORRECT 38 35 - 45 mm Hg 06/16/2025 3:06 PM CDT [facility] PO2 TEMP CORRECT 71(L) 80 - 105 mm Hg 06/16/2025 3:06 PM CDT [facility] SPECIMEN SOURCE, GASES POC Arterial 06/16/2025 3:06 PM CDT [facility] CALCIUM IONIZED POC 5.0 4.8 - 5.2 mg/dL 06/16/2025 3:06 PM CDT [facility] TCO2 (CALC) POC 26 23 - 27 mmol/L 06/16/2025 3:06 PM CDT [facility] PUNC SITE POC No Charge 06/16/2025 3:06 PM CDT [facility] VENT MODE POC ECMO 06/16/2025 3:06 PM CDT [facility] PATIENT'S TEMPERATURE POC 37.0 degrees 06/16/2025 3:06 PM CDT [facility] SWEEP POC 2 L/min 06/16/2025 3:06 PM CDT [facility] ECMO FIO2 POC 100 % 06/16/2025 3:06 PM CDT [facility] ECMO FLOW POC 3 L/min 06/16/2025 3:06 PM CDT [facility] Blood, arterial 06/16/2025 3 :06 PM CDT 06/16/2025 3:07 PM CDT us Karlie Hamilton MD ABG ORDERABLES Final Result [facility] CLIA # [id number] [address] [place] [address] [place] [address] * ECHO LIMITED WO DOPPLER (06/16/2025 2:10 PM CDT) EJECTION FRACTION 45 INTERFACE SYSTEM 06/16/2025 1:53 PM CDT Narrative INTERFACE SYSTEM - 06/16/2025 2:42 PM CDT [facility] Echocardiography [place] [address] Limited Transthoracic Echocardiography Patient: Noemi Study ID: ECHO LIMITED Gigi Parnell Gender: M : 1960 Age: 65 Room: [facility] 06/16/2025 Inpatient Date: Status: Study 01:53:44 PM CSN #: [id number] Time: Ordering:Karlie Hamilton Mail Officer: LVO Indications and History: Assess cardiac function with ECMO turn down. Summary and Conclusion: - Study data: A limited echo was performed - Left ventricle: Not well visualized. The cavity size is normal. Wall thickness is increased in a pattern of mild LVH. Global systolic function is mildly reduced. For Epic reporting: the left ventricular ejection fraction is 45% by visual assessment. Cannot exclude hypokinesis of the basalinferolateral wall. Interventricular septum shows dyssynergy, consistent with previous thoracotomy, conduction delay or RV pacing. - Mitral valve: The annulus is calcified. Comparison: Compared to the previous study, LV systolic functionhas improved. Procedure information: Comparison is made to the study of 06/14/2025. Study status: Routine. Procedure: A transthoracic echocardiogram was performed. Image quality was adequate. Scanning was performed from the parasternal, apical, and subcostal acoustic windows. A limited echo was performed Study components: M-mode, limited 2D, limited spectral Doppler, and color Doppler. Height: 172.7cm. Height: 68in. Weight: 107.1kg. Weight: 236.1lb. BMI: 35.9kg/m^2. BSA: 2.31m^2. Blood pressure: 111/63 Study date: 06/16/2025. Study time: 01:53 PM. Location: ICU/CCU Cardiac Anatomy: LEFT VENTRICLE: Not well visualized. The cavity size is normal. Wall thickness is increased in a pattern of mild LVH. Global systolic function is mildly reduced. For Epic reporting: the left ventricular ejection fraction is 45% by visual assessment. Interventricular septum shows dyssynergy, consistent with previous thoracotomy, conduction delay or RV pacing. Regional wall motion abnormalities: Cannot exclude hypokinesis of the basalinferolateral wall. MITRAL VALVE: The annulus is calcified. Measurements Left ventricle Value Left ventricle continued Value ESD major ax, A4C 5.8 cm EDV, 1-p A4C 67 ml ESD/bsa major ax, A4C 2.5 cm/m^2 ESV, 1-p A4C 35 ml BRENT minor ax, A4C 5.8 cm EF, 1-p A4C 48 % BRENT/bsa minor ax, A4C 2.5 cm/m^2 SV, 1-p A4C 32 ml TORSTEN, A4C 22.9 cm^2 EDV/bsa, 1-p A4C 29 ml/m^2 GERA, A4C 15.2 cm^2 ESV/bsa, 1-p A4C 15 ml/m^2 FAC, A4C 34 % SV/bsa, 1-p A4C 14 ml/m^2 BRENT major ax, A2C 6.8 cm EDV, 2-p 72 ml BRENT/bsa major ax, A2C 2.9 cm/m^2 ESV, 2-p 38 ml TORSTEN, A2C 24.5 cm^2 EF, 2-p 47 % GERA, A2C 16.3 cm^2 SV, 2-p 34 ml FAC, A2C 33 % EDV/bsa, 2-p 31 ml/m^2 EDV, 1-p A2C 76 ml ESV/bsa, 2-p 16 ml/m^2 ESV, 1-p A2C 36 ml SV/bsa, 2-p 14.6 ml/m^2 EF, 1-p A2C 48 % EDV/bsa, 1-p A2C 33 ml/m^2 Other Value ESV/bsa, 1-p A2C 16 ml/m^2 Legend: (L) and (H) levi values outside specified reference range. [facility] are accredited with the [facility]reditation [facility] - Echocardiography. Prepared and Electronically Authenticated Rudy Callahan MD Confirmed 06/16/2025 14:42 Procedure Note Rudy Callahan MD - 06/16/2025 [facility] Echocardi[facility] Laboratory [address] [place] [id number] Limited Transthoracic Echocardiography Patient: Noemi Study ID: ECHO LIMITED LALITO Parnell Gender: M : 1960 Age: 65 Room: [facility] Study 06/16/2025 Pt Inpatient Date: Status: Study 01:53:44 PM CSN #: [id number] Time: Ordering:Karlie Hamilton Mail Officer: LVO Indications and History: Assess cardiac function with ECMO turndown. Summary and Conclusion: - Study data: A limited echo was performed - Left ventricle: Not well visualized. The cavity size is normal. Wall thickness is increased in a pattern of mild LVH. Global systolicfunction is mildly reduced. For Epic reporting: the left ventricular ejectionfraction is 45% by visual assessment. Cannot exclude hypokinesis of the basalinferolateral wall. Interventricular septum shows dyssynergy, consistent with previous thoracotomy, conduction delay or RV pacing. - Mitral valve: The annulus is calcified. Comparison: Compared to the previous study, LV systolic functionhasimproved. Procedure information: Comparison is made to the study of 06/14/2025.Study status: Routine. Procedure: A transthoracic echocardiogram wasperformed. Image quality was adequate. Scanning was performed from the parasternal, apical, and subcostal acoustic windows. A limited echo wasperformed Study components: M-mode, limited 2D, limited spectral Doppler, andcolor Doppler. Height: 172.7cm. Height: 68in. Weight: 107.1kg. Weight: 236.1lb. BMI: 35.9kg/m^2. BSA: 2.31m^2. Blood pressure:111/63 Study date: 06/16/2025. Study time: 01:53 PM. Location: ICU/CCU Cardiac Anatomy: LEFT VENTRICLE: Not well visualized. The cavity size is normal. Wall thickness is increased in a pattern of mild LVH. Global systolic functionis mildly reduced. For Epic reporting: the left ventricular ejection fractionis 45% by visual assessment. Interventricular septum shows dyssynergy,consistent with previous thoracotomy, conduction delay or RV pacing. Regional wall motion abnormalities: Cannot exclude hypokinesis of thebasalinferolateral wall. MITRAL VALVE: The annulus is calcified. Measurements Left ventricle Value Left ventricle continued Value ESD major ax, A4C 5.8 cm EDV, 1-p A4C 67 ml ESD/bsa major ax, A4C 2.5 cm/m^2 ESV, 1-p A4C 35 ml BRENT minor ax, A4C 5.8 cm EF, 1-p A4C 48 % BRENT/bsa minor ax, A4C 2.5 cm/m^2 SV, 1-p A4C 32 ml TORSTEN, A4C 22.9 cm^2 EDV/bsa, 1-p A4C 29ml/m^2 GERA, A4C 15.2 cm^2 ESV/bsa, 1-p A4C 15ml/m^2 FAC, A4C 34 % SV/bsa, 1-p A4C 14ml/m^2 BRENT major ax, A2C 6.8 cm EDV, 2-p 72 ml BRENT/bsa major ax, A2C 2.9 cm/m^2 ESV, 2-p 38 ml TORSTEN, A2C 24.5 cm^2 EF, 2-p 47 % GERA, A2C 16.3 cm^2 SV, 2-p 34 ml FAC, A2C 33 % EDV/bsa, 2-p 31ml/m^2 EDV, 1-p A2C 76 ml ESV/bsa, 2-p 16ml/m^2 ESV, 1-p A2C 36 ml SV/bsa, 2-p 14.6ml/m^2 EF, 1-p A2C 48 % EDV/bsa, 1-p A2C 33 ml/m^2 Other Value ESV/bsa, 1-p A2C 16 ml/m^2 Legend: (L) and (H) levi values outside specified reference range. [facility] are accredited with the[facility]societal Accreditation Commission - Echocardiography. Prepared and Electronically Authenticated Rudy Callahan MD Confirmed 06/16/2025 14:42 Karlie Hamilton MD US ORDERABLES Final Result Performing Organization Address [facility]/ZIP Co de Phone Number INTERFACE SYSTEM Refer to clinic/hospital department * (ABNORMAL) PTT (06/16/2025 1:30 PM CDT) PTT 47.9(H) 24.8 - 37.2 seconds 06/16/2025 1:59 PM CDT [facility] Blood Venipuncture / Unknown 06/16/2025 1:30 PM CDT 06/16/2025 1:38 PM CDT Narrative [facility] - 06/16/2025 1:59 PM CDT Therapeutic Range: Hi-level PE/DVT heparin protocol 80.1 - 95.0 sec Lo-level PE/DVT heparin protocol 70.1 - 85.0 sec Cardiac Heparin Protocol 70.1 - 100.0 sec Karlie Hamilton MD HEMATOLOGY ORDERABLES Final Res ult Performing Organization Address [facility]/ZIP Co de Phone Number [facility] CLIA # [id number] [address] [address] [place], [place] [address] * (ABNORMAL) POC GLUCOSE (06/16/2025 12:22 PM CDT) GLUCOSE POC 115(H) 74 - 99 mg/dL 06/16/2025 12:22 PM CDT [facility] SPECIMEN SOURCE, GLUCOSE POC Arterial 06/16/2025 12:22 PM CDT [facility] Blood, whole 06/16/2025 12:2 2 PM CDT 06/16/2025 12:29 PM CDT us Karlie Hamilton MD POINT OF CARE TESTING Final Res ult Performing Organization Address [facility] Co de Phone Number [facility] CLIA # [id number] [address] [address] [place] [address] * (ABNORMAL) TROPONIN (06/16/2025 12:20 PM CDT) TROPONIN T, 5TH GEN 3,305(HH) <=15 ng/L 06/16/2025 12:57 PM CDT [facility] Blood Venipuncture / Unknown 06/16/2025 12:20 PM CDT 06/16/2025 12:24 PM CDT Narrative [facility] - 06/16/2025 12:57 PM CDT Troponin elevated. us Prince Yordan SANTANA CHEMISTRY ORDERABLES Final Resul t Performing Organization Address [facility] Co de Phone Number [facility] CLIA # [id number] [address] [address] [place] [address] * (ABNORMAL) POC GLUCOSE (06/16/2025 8:56 AM CDT) GLUCOSE POC 111(H) 74 - 99 mg/dL 06/16/2025 8:56 AM CDT [facility] SPECIMEN SOURCE, GLUCOSE POC Arterial 06/16/2025 8:56 AM CDT [facility] Blood, whole 06/16/2025 8:56 AM CDT 06/16/2025 9:03 AM CDT us Karlie Hamilton MD POINT OF CARE TESTING Final Res ult Performing Organization Address [facility]/ZIP Co de Phone Number [facility] CLIA # [id number] [address] [address] * POC LACTIC ACID (06/16/2025 6:55 AM CDT) LACTIC ACID POC 0.8 <=2.0 mmol/L 06/16/2025 6:55 AM CDT [facility] SPECIMEN SOURCE, GASES POC Arterial 06/16/2025 6:55 AM CDT [facility] PUN SITE POC No Charge 06/16/2025 6:55 AM CDT [facility] Blood 06/16/2025 6:55 AM CDT 06/16/2025 6:58 AM CDT Narrative [facility] - 06/16/2025 6:55 AM CDT References ranges displayed are for Arterial samples. us Karlie Hamilton MD POINT OF CARE TESTING Final Res ult Performing Organization Address [facility] Co de Phone Number [facility] CLIA # [id number] [address] [address] * (ABNORMAL) BLOOD GAS ARTERIAL (06/16/2025 6:55 AM CDT) PH BLOOD POC 7.44 7.35 - 7.45 06/16/2025 6:55 AM CDT [facility] PCO2 POC 39 35 - 45 mm Hg 06/16/2025 6:55 AM CDT [facility] PO2 POC 64(L) 80 - 105 mm Hg 06/16/2025 6:55 AM CDT [facility] HCO3 (CALC) POC 27(H) 22 - 26 mmol/L 06/16/2025 6:55 AM [facility] HEMOGLOBIN POC 9.0(L) 12.0 - 18.0 g/dL 06/16/2025 6:55 AM [facility] BASE EXCESS POC 2 -2 - 3 mmol/L 06/16/2025 6:55 AM [facility] O2 SATURATION POC 95 95 - 98 % 06/16/2025 6:55 AM [facility] SODIUM POC 136(L) 138 - 146 mmol/L 06/16/2025 6:55 AM [facility] POTASSIUM POC 3.4(L) 3.5 - 4.9 mmol/L 06/16/2025 6:55 AM [facility] HEMATOCRIT POC 27(L) 38 - 51 % 06/16/2025 6:55 AM [facility] PH TEMP CORRECT 7.44 7.35 - 7.45 06/16/20 6:55 AM [facility] PCO2 TEMP CORRECT 39 35 - 45 mm Hg 06/16/2025 6:55 AM [facility] PO2 TEMP CORRECT 64(L) 80 - 105 mm Hg 06/16/2025 6:55 AM [facility] SPECIMEN SOURCE, GASES POC Arterial 06/16/2025 6:55 AM [facility] CALCIUM IONIZED POC 4.8 4.8 - 5.2 mg/dL 06/16/2025 6:55 AM [facility] TCO2 (CALC) POC 28(H) 23 - 27 mmol/L 06/16/2025 6:55 AM [facility] PUNC SITE POC No Charge 06/16/2025 6:55 AM [facility] VENT MODE POC ECMO 06/16/2025 6:55 AM [facility] PATIENT'S TEMPERATURE POC 37.0 degrees 06/16/2025 6:55 AM [facility] SWEEP POC 2 L/min 06/16/2025 6:55 AM CDT [facility] ECMO FIO2 POC 100 % 06/16/2025 6:55 AM CDT [facility] ECMO FLOW POC 3 L/min 06/16/2025 6:55 AM CDT [facility] Blood, arterial 06/16/2025 6 :55 AM CDT 06/16/2025 6:58 AM CDT Karlie Hamilton MD ABG ORDERABLES Final Result Performing Organization Address [facility] Co de Phone Number [facility] CLIA # [id number] [address] [address] [place], [place] [id number] * (ABNORMAL) PTT (06/16/2025 6:54 AM CDT) PTT 48.0(H) 24.8 - 37.2 seconds 06/16/2025 7:17 AM CDT [facility] Blood Venipuncture / Unknown 06/16/2025 6:54 AM CDT 06/16/2025 6:57 AM CDT Narrative [facility] - 06/16/2025 7:17 AM CDT Therapeutic Range: Hi-level PE/DVT heparin protocol 80.1 - 95.0 sec Lo-level PE/DVT heparin protocol 70.1 - 85.0 sec Cardiac Heparin Protocol 70.1 - 100.0 sec Karlie Hamilton MD HEMATOLOGY ORDERABLES Final Res ult Performing Organization Address City/[facility]/ZIP Co de Phone Number [facility] CLIA # [id number] [address] [id number] * (ABNORMAL) OXIMETRY (06/16/2025 4:49 AM CDT) OXYHEMOGLOBIN POC 67.1 40.0 - 70.0 % 06/16/2025 4:49 AM CDT [facility] HEMOGLOBIN POC 9.2(L) 12.0 - 18.0 g/dL 06/16/2025 4:49 AM CDT [facility] O2 SATURATION POC 68 40 - 70 % 025 4:49 AM CDT [facility] SPECIMEN SOURCE, GASES POC Venous Mixed 06/16/2025 4:49 AM CDT [facility] SAMPLE SITE, GASES POC N-SY 06/16/2025 4:49 AM CDT [facility] PUNC SITE POC No Charge 06/16/2025 4:49 AM CDT [facility] Blood 06/16/2025 4:49 AM CDT 06/16/2025 4:51 AM CDT us Karlie Hamilton MD ABG ORDERABLES Final Result [facility] CLIA # [id number] [facility] [address] [place] [address] * XR CHEST PA OR AP 1 VW (06/16/2025 4:44 AM CDT) Anatomical Region Laterality Modality Chest Computed Radiogr aphy 06/16/2025 4:44 AM CDT Impressions 06/16/2025 7:07 AM CDT IMPRESSION: Please see below. Exam: XR CHEST PA OR AP 1 VW Date/Time of Exam: 06/16/2025 4:44 AM Reason For Exam: Line Placement. Diagnosis: ST elevation myocardial infarction (STEMI), unspecified artery; Cardiac arrest with ventricular fibrillation (CMS/HCC); Cardiac arrest with ventricular fibrillation (CMS/HCC); CHB (complete heart block); Laboratory test; Patient receiving extracorporeal membrane oxygenation (ECMO). Findings: Comparison study 06/15/2025. Stable exam. Life-support apparatus stable in position including radiopaque tip of IABP overlying aortic arch. No progressive airspace disease or significant pleural effusion. No pneumothorax. IMPRESSION: Stable exam. Narrative Procedure Note Umberto Huynh MD - 06/16/2025 IMPRESSION: Please see below. Exam: XR CHEST PA OR AP 1 VW Date/Time of Exam: 06/16/2025 4:44 AM Reason For Exam: Line Placement. Diagnosis: ST elevation myocardial infarction (STEMI), unspecified artery; Cardiac arrest with ventricular fibrillation (CMS/HCC); Cardiac arrest with ventricular fibrillation (CMS/HCC); CHB (complete heart block); Laboratory test; Patient receiving extracorporeal membrane oxygenation (ECMO). Findings: Comparison study 06/15/2025. Stable exam. Life-support apparatus stable in position including radiopaque tip of IABP overlying aortic arch. No progressive airspace disease or significant pleural effusion. No pneumothorax. IMPRESSION: Stable exam. Karlie Hamilton MD DIAGNOSTIC IMAGING ORDERABLES F inal Result * POC LACTIC ACID (06/16/2025 3:10 AM CDT) LACTIC ACID POC 0.7 <=2.0 mmol/L 06/16/2025 3:10 AM CDT [facility] SPECIMEN SOURCE, GASES POC Arterial 06/16/2025 3:10 AM CDT [facility] SITE POC No Charge 06/16/2025 3:10 AM CDT [facility] Blood 06/16/2025 3:10 AM CDT 06/16/2025 3:12 AM CDT Narrative [facility] - 06/16/2025 3:10 AM CDT References ranges displayed are for Arterial samples. Karlie Hamilton MD POINT OF CARE TESTING Final Res ult [facility] CLIA # [id number] [address] [place] [address] [place] [address] * (ABNORMAL) BLOOD GAS ARTERIAL (06/16/2025 3:10 AM CDT) PH BLOOD POC 7.43 7.35 - 7.45 06/16/2025 3:10 AM [facility] PCO2 POC 38 35 - 45 mm Hg 06/16/2025 3:10 AM [facility] PO2 POC 76(L) 80 - 105 mm Hg 06/16/2025 3:10 AM [facility] HCO3 (CALC) POC 25 22 - 26 mmol/L 06/16/2025 3:10 AM [facility] HEMOGLOBIN POC 9.3(L) 12.0 - 18.0 g/dL 06/16/2025 3:10 AM [facility] BASE EXCESS POC 1 -2 - 3 mmol/L 06/16/2025 3:10 AM [facility] O2 SATURATION POC 98 95 - 98 % 3:10 AM [facility] SODIUM POC 136(L) 138 - 146 mmol/L 06/16/2025 3:10 AM [facility] POTASSIUM POC 3.6 3.5 - 4.9 mmol/L 06/16/2025 3:10 AM [facility] HEMATOCRIT POC 28(L) 38 - 51 % 06/16/2025 3:10 AM [facility] PH TEMP CORRECT 7.43 7.35 - 7.45 06/16/2025 3:10 AM [facility] PCO2 TEMP CORRECT 38 35 - 45 mm Hg 06/16/2025 3:10 AM [facility] PO2 TEMP CORRECT 76(L) 80 - 105 mm Hg 06/16/2025 3:10 AM [facility] SPECIMEN SOURCE, GASES POC Arterial 06/16/2025 3:10 AM [facility] CALCIUM IONIZED POC 4.9 4.8 - 5.2 mg/dL 06/16/2025 3:10 AM [facility] TCO2 (CALC) POC 26 23 - 27 mmol/L 06/16/2025 3:10 AM [facility] FIO2 40.0 21.0 - 100.0 % 06/16/2025 3:10 AM [facility] Comment:FIO2 values reported <21.0 indicate O2 flow in Liters/minute. Values >/= 21.0 indicate percent O2. P/F RATIO POC 190 06/16/2025 3:10 AM CDT [facility] Comment: P/F Ratio Interpretation ARDS SEVERITY PaO2/FiO2 Mild 200-300 Moderate 100-200 Severe <100 PEEP POC 10 06/16/2025 3:10 AM CDT [facility] PUNC SITE POC No Charge 06/16/2025 3:10 AM CDT [facility] PATIENT'S TEMPERATURE POC 37.0 degrees 06/16/2025 3:10 AM CDT [facility] SWEEP POC 2 L/min 06/16/2025 3:10 AM CDT [facility] ECMO FIO2 POC 100 % 06/16/2025 3:10 AM CDT [facility] Blood, arterial 06/16/2025 3 :10 AM CDT 06/16/2025 3:12 AM CDT us Karlie Hamilton MD ABG ORDERABLES Final Result Performing Organization Address City/[facility]/ZIP Co de Phone Number [facility] CLIA # [id number] [address] [address] * (ABNORMAL) HAPTOGLOBIN (06/16/2025 3:09 AM CDT) HAPTOGLOBIN 233(H) 30 - 200 mg/dL 06/16/2025 4:32 AM CDT [facility] Blood Venipuncture / Unknown 06/16/2025 3:09 AM CDT 06/16/2025 3:16 AM CDT us Zenaida Michel MD CHEMISTRY ORDERABLES Final Resul t [facility] CLIA # [id number] [address] [place] [id number] * (ABNORMAL) TROPONIN (06/16/2025 3:09 AM CDT) [facility] TROPONIN T, 5TH GEN 2,658(HH) <=15 ng/L 06/16/2025 3:55 AM CDT [facility] Blood Venipuncture / Unknown 06/16/2025 3:09 AM CDT 06/16/2025 3:16 AM CDT Narrative [facility] - 06/16/2025 3:55 AM CDT Troponin elevated. Prince Yordan SANTANA CHEMISTRY ORDERABLES Final Resul t Performing Organization Address [facility]/ZIP Co de Phone Number [facility] CLIA # [id number] [address] [place] [phone] * PHOSPHORUS (06/16/2025 3:09 AM CDT) [facility] PHOSPHORUS 3.0 2.5 - 4.5 mg/dL 06/16/2025 5:23 AM CDT [facility] Blood Venipuncture / Unknown 06/16/2025 3:09 AM CDT 06/16/2025 3:16 AM CDT Zenaida Michel MD CHEMISTRY ORDERABLES Final Resul t [facility] CLIA # [id number] [address] [place] [address] [place] [address] * MAGNESIUM LEVEL (06/16/2025 3:09 AM CDT) [facility] MAGNESIUM 2.2 1.6 - 2.4 mg/dL 06/16/2025 5:23 AM CDT [facility] Blood Venipuncture / Unknown 06/16/2025 3:09 AM CDT 06/16/2025 3:16 AM CDT us Zenaida Michel MD CHEMISTRY ORDERABLES Final Resul t [facility] CLIA # [id number] [facility] [address] [address] [place] [address] * (ABNORMAL) COMPREHENSIVE METABOLIC PANEL (06/16/2025 3:09 AM CDT) SODIUM 139 136 - 145 mmol/L 06/16/2025 5:23 AM CDT [facility] POTASSIUM 3.6 3.5 - 5.1 mmol/L 06/16/2025 5:23 AM T [facility] CHLORIDE 104 98 - 107 mmol/L 06/16/2025 5:23 AM T [facility] CO2 21(L) 22 - 29 mmol/L 06/16/2025 5:23 AM T [facility] CALCIUM 8.5(L) 8.8 - 10.2 mg/dL 06/16/2025 5:23 AM T [facility] BUN 30(H) 8 - 23 mg/dL 06/16/2025 5:23 AM T [facility] CREATININE 0.88 0.67 - 1.17 mg/dL 06/16/2025 5:23 AM T [facility] GLUCOSE 111(H) 74 - 99 mg/dL 06/16/2025 5:23 AM T [facility] TOTAL PROTEIN 5.8(L) 6.4 - 8.3 g/dL 06/16/2025 5:23 AM T [facility] ALBUMIN 3.0(L) 3.5 - 5.2 g/dL 06/16/2025 5:23 AM CDT [facility] BILIRUBIN TOTAL 0.6 0.0 - 1.0 mg/dL 06/16/2025 5:23 AM T [facility] ALKALINE PHOSPHATASE 88 40 - 129 U/L 06/16/2025 5:23 AM T [facility] AST 63(H) 10 - 50 U/L 06/16/2025 5:23 AM T [facility] ALT 55(H) <=50 U/L 06/16/2025 5:23 AM T [facility] GFR >60 >=60 mL/min/1.7 3 sq meter 06/16/2025 5:23 AM T [facility] Comment:eGFR calculated with 2020 CKD-EPI equation. Vegetarian diet, extremely high or low muscle mass, and may affect results. Cystatin C with Glomerular Filtration Rate is a suitable alternative for these patients. ANION GAP 14 9 - 20 mmol/L 06/16/2025 5:23 AM [facility] Blood Venipuncture / Unknown 06/16/2025 3:09 AM CDT 06/16/2025 3:16 AM CDT us Zenaida Michel MD CHEMISTRY ORDERABLES Final Resul t [facility] CLIA # [id number] [address] [place] [address] * (ABNORMAL) CBC WITH DIFFERENTIAL (06/16/2025 3:09 AM CDT) WBC 11.7(H) 4.8 - 10.8 K/uL 06/16/2025 3:25 AM T [facility] RBC 2.84(L) 4.60 - 6.20 M/uL 06/16/2025 3:25 AM CDT [facility] HEMOGLOBIN 8.7(L) 14.0 - 18.0 g/dL 06/16/2025 3:25 AM T [facility] HEMATOCRIT 27.2(L) 41.0 - 53.0 % 06/16/2025 3:25 AM T [facility] MCV 95.8 84.0 - 103.0 fL 06/16/2025 3:25 AM [facility] MCH 30.6 27.0 - 34.0 pg 06/16/2025 3:25 AM [facility] MCHC 32.0 30.0 - 35.0 g/dL 06/16/2025 3:25 AM [facility] PLATELETS 89(L) 140 - 440 K/uL 06/16/2025 3:25 AM [facility] MPV 10.3 8.9 - 12.8 fL 06/16/2025 3:25 AM [facility] RDW 14.3 11.0 - 14.5 % 06/16/2025 3:25 AM [facility] RDW-STDEV 49.9 37.0 - 54.0 fL 06/16/2025 3:25 AM [facility] NEUTROPHILS 77(H) 42 - 75 % 06/16/2025 3:25 AM [facility] LYMPHOCYTES 11(L) 24 - 44 % 06/16/2025 3:25 AM [facility] MONOCYTES 10 2 - 10 % 06/16/2025 3:25 AM [facility] EOSINOPHILS 1 0 - 7 % 06/16/2025 3:25 AM [facility] BASOPHILS 0 0 - 1 % 06/16/2025 3:25 AM [facility] IMMATURE GRANULOCYTES 1 0 - 2 % 06/16/2025 3:25 AM [facility] NEUTROPHIL ABSOLUTE 8.98(H) 2.00 - 8.00 K/uL 06/16/2025 3:25 AM [facility] LYMPHOCYTE ABSOLUTE 1.25 1.20 - 4.00 K/uL 06/16/2025 3:25 AM [facility] MONOCYTE ABSOLUTE 1.15(H) 0.10 - 0.60 K/uL 06/16/2025 3:25 AM [facility] EOSINOPHIL ABSOLUTE 0.15 0.00 - 0.70 K/uL 06/16/2025 3:25 AM CDT [facility] BASOPHILS ABSOLUTE 0.04 0.00 - 0.20 K/uL 06/16/2025 3:25 AM CDT [facility] IMMATURE GRANULOCYTES ABSOLUTE 0.16(H) 0.00 - 0.10 K/uL 06/16/2025 3:25 AM CDT [facility] SMEAR REVIEWED: NN - No Action Needed 06/16/2025 3:25 AM CDT [facility] Blood Venipuncture / Unknown 06/16/2025 3:09 AM CDT 06/16/2025 3:16 AM CDT Zenaida Michel MD HEMATOLOGY ORDERABLES Final Resu lt [facility] # [id number] [address] [place] [address] * TRANSFUSE RED BLOOD CELLS (06/16/2025 1:10 AM CDT) Karlie Hamilton MD BLOOD TRANSFUSION ORDERABLES Fi nal Result * TRANSFUSE RED BLOOD CELLS (06/16/2025 1:10 AM CDT) Karlie Hamilton MD BLOOD TRANSFUSION ORDERABLES Fi nal Result * (ABNORMAL) PTT (06/16/2025 12:35 AM CDT) Pathologist [facility] PTT 49.0(H) 24.8 - 37.2 seconds 06/16/2025 12:55 AM CDT [facility] Blood Venipuncture / Unknown 06/16/2025 12:35 AM CDT 06/16/2025 12:44 AM CDT Narrative [facility] - 06/16/2025 12:55 AM CDT Therapeutic Range: Hi-level PE/DVT heparin protocol 80.1 - 95.0 sec Lo-level PE/DVT heparin protocol 70.1 - 85.0 sec Cardiac Heparin Protocol 70.1 - 100.0 sec Karlie Hamilton MD HEMATOLOGY ORDERABLES Final Res ult Performing Organization Address [facility]/ZIP Co de Phone Number [facility] CLIA # [id number] [address] [place] [address] * POC LACTIC ACID (06/16/2025 12:07 AM CDT) LACTIC ACID POC 1.0 <=2.0 mmol/L 06/16/2025 12:07 AM CDT [facility] SPECIMEN SOURCE, GASES POC Arterial 06/16/2025 12:07 AM CDT [facility] PUN SITE POC No Charge 06/16/2025 12:07 AM CDT [facility] Blood 06/16/2025 12:0 7 AM CDT 06/16/2025 12:09 AM CDT Narrative [facility] - 06/16/2025 12:07 AM CDT References ranges displayed are for Arterial samples. Karlie Hamilton MD POINT OF CARE TESTING Final Res ult Performing Organization Address [facility] Co de Phone Number [facility] CLIA # [id number] [address] [place] [phone] * (ABNORMAL) BLOOD GAS ARTERIAL (06/16/2025 12:07 AM CDT) PH BLOOD POC 7.49(H) 7.35 - 7.45 06/16/2025 12:07 AM CDT [facility] PCO2 POC 35 35 - 45 mm Hg 06/16/2025 12:07 AM CDT [facility] PO2 POC 73(L) 80 - 105 mm Hg 06/16/2025 12:07 AM CDT [facility] HCO3 (CALC) POC 27(H) 22 - 26 mmol/L 06/16/2025 12:07 AM [facility] HEMOGLOBIN POC 9.0(L) 12.0 - 18.0 g/dL 06/16/2025 12:07 AM [facility] BASE EXCESS POC 3 -2 - 3 mmol/L 06/16/2025 12:07 AM [facility] O2 SATURATION POC 97 95 - 98 % 12:07 AM [facility] SODIUM POC 134(L) 138 - 146 mmol/L 06/16/2025 12:07 AM [facility] POTASSIUM POC 3.7 3.5 - 4.9 mmol/L 06/16/2025 12:07 AM [facility] HEMATOCRIT POC 27(L) 38 - 51 % 06/16/2025 12:07 AM [facility] PH TEMP CORRECT 7.49(H) 7.35 - 7.45 06/16/2025 12:07 AM [facility] PCO2 TEMP CORRECT 35 35 - 45 mm Hg 06/16/2025 12:07 AM [facility] PO2 TEMP CORRECT 73(L) 80 - 105 mm Hg 06/16/2025 12:07 AM [facility] SPECIMEN SOURCE, GASES POC Arterial 06/16/2025 12:07 AM [facility] CALCIUM IONIZED POC 5.0 4.8 - 5.2 mg/dL 06/16/2025 12:07 AM [facility] TCO2 (CALC) POC 28(H) 23 - 27 mmol/L 06/16/2025 12:07 AM [facility] FIO2 40.0 21.0 - 100.0 % 06/16/2025 12:07 AM [facility] Comment:FIO2 values reported <21.0 indicate O2 flow in Liters/minute. Values >/= 21.0 indicate percent O2. P/F RATIO POC 183 06/16/2025 12:07 AM [facility] Comment: P/F Ratio Interpretation ARDS SEVERITY PaO2/FiO2 Mild 200-300 Moderate 100-200 Severe <100 PEEP POC 10 06/16/2025 12:07 AM CDT [facility] PUNC SITE POC No Charge 06/16/2025 12:07 AM CDT [facility] PATIENT'S TEMPERATURE POC 37.0 degrees 06/16/2025 12:07 AM T [facility] SWEEP POC 2 L/min 06/16/2025 12:07 AM T [facility] ECMO FIO2 POC 100 % 06/16/2025 12:07 AM T [facility] ECMO FLOW POC 3 L/min 06/16/2025 12:07 AM [facility] Blood, arterial 06/16/2025 1 2:07 AM CDT 06/16/2025 12:09 AM CDT Karlie Hamilton MD ABG ORDERABLES Final Result [facility] CLIA # [id number] [address] [place] [address] * (ABNORMAL) BASIC METABOLIC PANEL (06/15/2025 7:48 PM CDT) SODIUM 139 136 - 145 mmol/L 06/15/2025 8:38 PM CDT [facility] POTASSIUM 3.8 3.5 - 5.1 mmol/L 06/15/2025 8:38 PM T [facility] CHLORIDE 104 98 - 107 mmol/L 06/15/2025 8:38 PM CDT [facility] CO2 23 22 - 29 mmol/L 06/15/2025 8:38 PM CDT [facility] CALCIUM 8.3(L) 8.8 - 10.2 mg/dL 06/15/2025 8:38 PM CDT [facility] BUN 32(H) 8 - 23 mg/dL 06/15/2025 8:38 PM CDT [facility] CREATININE 0.89 0.67 - 1.17 mg/dL 06/15/2025 8:38 PM CDT [facility] GLUCOSE 173(H) 74 - 99 mg/dL 06/15/2025 8:38 PM CDT [facility] GFR >60 >=60 mL/min/1.7 3 sq meter 06/15/2025 8:38 PM CDT [facility] Comment:eGFR calculated with 2020 CKD-EPI equation. Vegetarian diet, extremely high or low muscle mass, and may affect results. Cystatin C with Glomerular Filtration Rate is a suitable alternative for these patients. ANION GAP 12 9 - 20 mmol/L 06/15/2025 8:38 PM CDT [facility] Blood Venipuncture / Unknown 06/15/2025 7:48 PM CDT 06/15/2025 7:55 PM CDT us Karlie Hamilton MD CHEMISTRY ORDERABLES Final Resu lt Performing Organization Address City/[facility]/ZIP Co de Phone Number [facility] CLIA # [id number] [address] [place] [address] [place] [address] * (ABNORMAL) TROPONIN (06/15/2025 7:48 PM CDT) TROPONIN T, 5TH GEN 2,602(HH) <=15 ng/L 06/15/2025 8:41 PM CDT [facility] Blood Venipuncture / Unknown 06/15/2025 7:48 PM CDT 06/15/2025 7:55 PM CDT Narrative [facility] - 06/15/2025 8:41 PM CDT Troponin elevated. us Prince Yordan SANTANA CHEMISTRY ORDERABLES Final Resul t Performing Organization Address City/[facility]/ZIP Co de Phone Number [facility] CLIA # [id number] [address] [place] [address] [place] [address] * POC LACTIC ACID (06/15/2025 7:39 PM CDT) [facility] LACTIC ACID POC 1.3 <=2.0 mmol/L 06/15/2025 7:39 PM CDT [facility] SPECIMEN SOURCE, GASES POC Arterial 06/15/2025 7:39 PM CDT [facility] SITE POC No Charge 06/15/2025 7:39 PM CDT [facility] Blood 06/15/2025 7:39 PM CDT 06/15/2025 7:40 PM CDT [facility] - 06/15/2025 7:39 PM CDT References ranges displayed are for Arterial samples. us Karlie Hamilton MD POINT OF CARE TESTING Final Res ult [facility] CLIA # [id number] [address] [place] [address] * (ABNORMAL) BLOOD GAS ARTERIAL (06/15/2025 7:39 PM CDT) [facility] PH BLOOD POC 7.50(H) 7.35 - 7.45 06/15/2025 7:39 PM CDT [facility] PCO2 POC 33(L) 35 - 45 mm Hg 06/15/2025 7:39 PM CDT [facility] PO2 POC 73(L) 80 - 105 mm Hg 06/15/2025 7:39 PM CDT [facility] HCO3 (CALC) POC 26 22 - 26 mmol/L 06/15/2025 7:39 PM CDT [facility] HEMOGLOBIN POC 9.0(L) 12.0 - 18.0 g/dL 06/15/2025 7:39 PM CDT [facility] BASE EXCESS POC 3 -2 - 3 mmol/L 06/15/2025 7:39 PM CDT [facility] O2 SATURATION POC 97 95 - 98 % 025 7:39 PM [facility] SODIUM POC 135(L) 138 - 146 mmol/L 06/15/2025 7:39 PM [facility] POTASSIUM POC 3.8 3.5 - 4.9 mmol/L 06/15/2025 7:39 PM [facility] HEMATOCRIT POC 27(L) 38 - 51 % 06/15/2025 7:39 PM [facility] PH TEMP CORRECT 7.50(H) 7.35 - 7.45 06/15/2025 7:39 PM [facility] PCO2 TEMP CORRECT 33(L) 35 - 45 mm Hg 06/15/2025 7:39 PM [facility] PO2 TEMP CORRECT 73(L) 80 - 105 mm Hg 06/15/2025 7:39 PM [facility] SPECIMEN SOURCE, GASES POC Arterial 06/15/2025 7:39 PM [facility] CALCIUM IONIZED POC 4.7(L) 4.8 - 5.2 mg/dL 06/15/2025 7:39 PM [facility] TCO2 (CALC) POC 27 23 - 27 mmol/L 06/15/2025 7:39 PM [facility] FIO2 40.0 21.0 - 100.0 % 06/15/2025 7:39 PM [facility] Comment:FIO2 values reported <21.0 indicate O2 flow in Liters/minute. Values >/= 21.0 indicate percent O2. P/F RATIO POC 183 06/15/2025 7:39 PM [facility] Comment: P/F Ratio Interpretation ARDS SEVERITY PaO2/FiO2 Mild 200-300 Moderate 100-200 Severe <100 [facility] POC No Charge 06/15/2025 7:39 PM [facility] PATIENT'S TEMPERATURE POC 37.0 degrees 06/15/2025 7:39 PM [facility] SWEEP POC 2 L/min 06/15/2025 7:39 PM [facility] ECMO FIO2 POC 100 % 06/15/2025 7:39 PM CDT [facility] ECMO FLOW POC 4 L/min 06/15/2025 7:39 PM CDT [facility] Blood, arterial 06/15/2025 7 :39 PM CDT 06/15/2025 7:40 PM CDT Karlie Hamilton MD ABG ORDERABLES Final Result Performing Organization Address [facility]/ZIP Co de Phone Number [facility] CLIA # [id number] [address] [address] [place] [address] * (ABNORMAL) POC GLUCOSE (06/15/2025 7:37 PM CDT) GLUCOSE POC 166(H) 74 - 99 mg/dL 06/15/2025 7:37 PM CDT [facility] SPECIMEN SOURCE, GLUCOSE POC Arterial 06/15/2025 7:37 PM CDT [facility] Blood, whole 06/15/2025 7:37 PM CDT 06/16/2025 12:15 AM CDT Karlie Hamilton MD POINT OF CARE TESTING Final Res ult Performing Organization Address [facility] Co de Phone Number [facility] CLIA # [id number] [address] [address] * PREPARE RED BLOOD CELLS (06/15/2025 5:31 PM CDT) COMPONENT TYPE [id number] [facility] COMPONENT IDENTIFICATION [id number] [facility] UN[facility] ABO O [facility] UNIT RH POS [facility] CROSSMATCH Compatible [facility] COMPONENT STATUS Returned [facility] [place] COMPONENT EXPIRATION DATE/TIME [facility] COMPONENT CODING SYSTEM 5100 [facility] VOLUME, BLOOD PRODUCT 350 [facility] 06/15/2025 5:31 PM CDT Karlie Hamilton MD LAB TRANSFUSION ORDERABLES Edit ed Result - Final Performing Organization Address City/[facility]/ZIP Co de Phone Number [facility] CLIA#[id number] [address] [place] [address], [place] [phone] * PREPARE RED BLOOD CELLS (06/15/2025 5:31 PM CDT) COMPONENT TYPE [id number] [facility] COMPONENT IDENTIFICATION [id number] [facility] UNIT ABO O [facility] UN[facility] RH POS [facility] [place] CROSSMATCH Compatible [facility] [place] COMPONENT STATUS Returned [facility] [place] COMPONENT EXPIRATION DATE/TIME [id number] [facility] COMPONENT CODING SYSTEM 5100 [facility] VOLUME, BLOOD PRODUCT 350 [facility] 06/15/2025 5:31 PM CDT Karlie Hamilton MD LAB TRANSFUSION ORDERABLES Edit ed Result - Final Performing Organization Address City/[facility]/ZIP Co de Phone Number [facility] CLIA#[id number] [address] [place] [address], [place] [phone] * PREPARE RED BLOOD CELLS (06/15/2025 5:31 PM CDT) COMPONENT TYPE [id number] [facility] [place] COMPONENT IDENTIFICATION [id number] [facility] [place] UNIT ABO O [facility] [place] UN[facility] POS [facility] [place] CROSSMATCH Compatible [facility] LABORATORY SERVICES -- [facility] COMPONENT STATUS Returned [facility] LABORATORY SERVICES -- [facility] COMPONENT EXPIRATION DATE/TIME [facility] -- [facility] COMPONENT CODING SYSTEM 5100 [facility] -- [facility] VOLUME, BLOOD PRODUCT 350 [facility] -- [facility] 06/15/2025 5:31 PM CDT Karlie Hamilton MD LAB TRANSFUSION ORDERABLES Edit ed Result - Final Performing Organization Address [facility]/ZIP Co de Phone Number [facility] -- [facility] CLIA#[id number] [address] [place] [address], * PREPARE RED BLOOD CELLS (06/15/2025 5:31 PM CDT) COMPONENT TYPE [id number] [facility]ORAT[facility] -- [facility] COMPONENT IDENTIFICATION [id number] [facility] -- [facility] UNIT ABO O [facility] -- [facility] UNIT RH POS [facility] -- [facility] CROSSMATCH Compatible [facility] -- [facility] COMPONENT STATUS Returned [facility] LABORATORY SERVICES -- [place] COMPONENT EXPIRATION DATE/TIME [id number] [facility] LABORATORY SERVICES -- [facility] COMPONENT CODING SYSTEM 5100 [facility]OR[facility] -- [facility] VOLUME, BLOOD PRODUCT 350 [facility] -- [facility] Other, specify 06/15/2025 5: 31 PM CDT Karlie Hamilton MD LAB TRANSFUSION ORDERABLES Edit ed Result - Final Performing Organization Address City/[facility]/ZIP Co de Phone Number [facility] CLIA#[id number] [address] [place] [address], * PREPARE RED BLOOD CELLS (06/15/2025 5:30 PM CDT) COMPONENT TYPE [id number] [facility]ORATORY SERVICES -- [facility] COMPONENT IDENTIFICATION [id number] [facility] -- [facility] UNIT ABO O [facility] -- [facility] UNIT RH POS [facility] LABORAT[facility] -- [facility] CROSSMATCH Compatible [facility] LABORATORY [facility] -- [facility] COMPONENT STATUS Transfused [facility] LABORATORY SERVICES -- [facility] COMPONENT EXPIRATION DATE/TIME [id number] [facility] LABORATORY SERVICES -- [facility] COMPONENT CODING SYSTEM 5100 [facility] -- [facility] VOLUME, BLOOD PRODUCT 350 [facility] LABORATORY SERVICES -- [facility] Other, specify 06/15/2025 5: 30 PM CDT Karlie Hamilton MD LAB TRANSFUSION ORDERABLES Edit ed Result - Final [facility] -- [facility] CLIA#[id number] [address] [place] [id number], * POC LACTIC ACID (06/15/2025 5:14 PM CDT) Pathologist [facility] [place] LACTIC ACID POC 1.0 <=2.0 mmol/L 06/15/2025 5:14 PM CDT [facility] SPECIMEN SOURCE, GASES POC Arterial 06/15/2025 5:14 PM CDT [facility] SITE POC No Charge 06/15/2025 5:14 PM CDT [facility] Blood 06/15/2025 5:14 PM CDT 06/15/2025 5:16 PM CDT Narrative [facility] - 06/15/2025 5:14 PM CDT References ranges displayed are for Arterial samples. Karlie Hamilton MD POINT OF CARE TESTING Final Res ult [facility] CLIA # [id number] [address] [place] [address] * (ABNORMAL) BLOOD GAS ARTERIAL (06/15/2025 5:14 PM CDT) Pathologist [facility] PH BLOOD POC 7.49(H) 7.35 - 7.45 06/15/2025 5:14 PM [facility] PCO2 POC 37 35 - 45 mm Hg 06/15/2025 5:14 PM [facility] PO2 POC 80 80 - 105 mm Hg 06/15/2025 5:14 PM [facility] HCO3 (CALC) POC 28(H) 22 - 26 mmol/L 06/15/2025 5:14 PM [facility] HEMOGLOBIN POC 8.3(L) 12.0 - 18.0 g/dL 06/15/2025 5:14 PM [facility] BASE EXCESS POC 5(H) -2 - 3 mmol/L 06/15/2025 5:14 PM [facility] O2 SATURATION POC 99(H) 95 - 98 % 06/15/2025 5:14 PM [facility] SODIUM POC 135(L) 138 - 146 mmol/L 06/15/2025 5:14 PM [facility] POTASSIUM POC 3.6 3.5 - 4.9 mmol/L 06/15/2025 5:14 PM [facility] HEMATOCRIT POC 25(L) 38 - 51 % 06/15/2025 5:14 PM [facility] PH TEMP CORRECT 7.49(H) 7.35 - 7.45 06/15/20 5:14 PM [facility] PCO2 TEMP CORRECT 37 35 - 45 mm Hg 06/15/2025 5:14 PM [facility] PO2 TEMP CORRECT 80 80 - 105 mm Hg 06/15/2025 5:14 PM [facility] SPECIMEN SOURCE, GASES POC Arterial 06/15/2025 5:14 PM [facility] CALCIUM IONIZED POC 4.7(L) 4.8 - 5.2 mg/dL 06/15/2025 5:14 PM [facility] TCO2 (CALC) POC 29(H) 23 - 27 mmol/L 06/15/2025 5:14 PM [facility] PUNC SITE POC No Charge 06/15/2025 5:14 PM CDT [facility] VENT MODE POC ECMO 06/15/2025 5:14 PM CDT [facility] PATIENT'S TEMPERATURE POC 37.0 degrees 06/15/2025 5:14 PM CDT [facility] SWEEP POC 2 L/min 06/15/2025 5:14 PM CDT [facility] ECMO FIO2 POC 100 % 06/15/2025 5:14 PM CDT [facility] ECMO FLOW POC 3 L/min 06/15/2025 5:14 PM CDT [facility] Blood, arterial 06/15/2025 5 :14 PM CDT 06/15/2025 5:16 PM CDT us Karlie Hamilton MD ABG ORDERABLES Final Result [facility] CLIA # [id number] [address] [place] [id number] * (ABNORMAL) CBC WITH DIFFERENTIAL (06/15/2025 5:10 PM CDT) [facility] WBC 12.2(H) 4.8 - 10.8 K/uL 06/15/2025 5:26 PM CDT [facility] RBC 2.48(L) 4.60 - 6.20 M/uL 06/15/2025 5:26 PM CDT [facility] HEMOGLOBIN 7.8(L) 14.0 - 18.0 g/dL 06/15/2025 5:26 PM CDT [facility] HEMATOCRIT 23.6(L) 41.0 - 53.0 % 06/15/2025 5:26 PM CDT [facility] MCV 95.2 84.0 - 103.0 fL 06/15/2025 5:26 PM CDT [facility] MCH 31.5 27.0 - 34.0 pg 06/15/2025 5:26 PM [facility] MCHC 33.1 30.0 - 35.0 g/dL 06/15/2025 5:26 PM [facility] PLATELETS 92(L) 140 - 440 K/uL 06/15/2025 5:26 PM [facility] MPV 10.6 8.9 - 12.8 fL 06/15/2025 5:26 PM [facility] RDW 13.9 11.0 - 14.5 % 06/15/2025 5:26 PM [facility] RDW-STDEV 48.5 37.0 - 54.0 fL 06/15/2025 5:26 PM [facility] NEUTROPHILS 79(H) 42 - 75 % 06/15/2025 5:26 PM [facility] LYMPHOCYTES 10(L) 24 - 44 % 06/15/2025 5:26 PM [facility] MONOCYTES 8 2 - 10 % 06/15/2025 5:26 PM [facility] EOSINOPHILS 1 0 - 7 % 06/15/2025 5:26 PM [facility] BASOPHILS 0 0 - 1 % 06/15/2025 5:26 PM [facility] IMMATURE GRANULOCYTES 1 0 - 2 % 06/15/2025 5:26 PM [facility] NEUTROPHIL ABSOLUTE 9.63(H) 2.00 - 8.00 K/uL 06/15/2025 5:26 PM [facility] LYMPHOCYTE ABSOLUTE 1.26 1.20 - 4.00 K/uL 06/15/2025 5:26 PM [facility] MONOCYTE ABSOLUTE 0.99(H) 0.10 - 0.60 K/uL 06/15/2025 5:26 PM [facility] EOSINOPH[facility]OLUTE 0.13 0.00 - 0.70 K/uL 06/15/2025 5:26 PM [facility] BASOPHILS ABSOLUTE 0.04 0.00 - 0.20 K/uL 06/15/2025 5:26 PM CDT [facility] IMMATURE GRANULOCYTES ABSOLUTE 0.13(H) 0.00 - 0.10 K/uL 06/15/2025 5:26 PM CDT [facility] SMEAR REVIEWED: NN - No Action Needed 06/15/2025 5:26 PM CDT [facility] Blood Venipuncture / Unknown 06/15/2025 5:10 PM CDT 06/15/2025 5:14 PM CDT Karlie Hamilton MD HEMATOLOGY ORDERABLES Final Res ult Performing Organization Address [facility]/ZIP Co de Phone Number [facility] CLIA # [id number] [address] [id number] * (ABNORMAL) PTT (06/15/2025 5:10 PM CDT) PTT 43.7(H) 24.8 - 37.2 seconds 06/15/2025 5:28 PM CDT [facility] Blood Venipuncture / Unknown 06/15/2025 5:10 PM CDT 06/15/2025 5:14 PM CDT Narrative [facility] - 06/15/2025 5:28 PM CDT Therapeutic Range: Hi-level PE/DVT heparin protocol 80.1 - 95.0 sec Lo-level PE/DVT heparin protocol 70.1 - 85.0 sec Cardiac Heparin Protocol 70.1 - 100.0 sec Karlie Hamilton MD HEMATOLOGY ORDERABLES Final Res ult Performing Organization Address City/[facility]/ZIP Co de Phone Number [facility] CLIA # [id number] [address] [phone] * (ABNORMAL) POC GLUCOSE (06/15/2025 5:09 PM CDT) GLUCOSE POC 170(H) 74 - 99 mg/dL 06/15/2025 5:09 PM CDT [facility] SPECIMEN SOURCE, GLUCOSE POC Arterial 06/15/2025 5:09 PM CDT [facility] Blood, whole 06/15/2025 5:09 PM CDT 06/15/2025 6:25 PM CDT Karlie Hamilton MD POINT OF CARE TESTING Final Res ult [facility] CLIA # [id number] [address] [phone] * POC LACTIC ACID (06/15/2025 1:16 PM CDT) Pathologist [facility] LACTIC ACID POC 1.1 <=2.0 mmol/L 06/15/2025 1:16 PM CDT [facility] SPECIMEN SOURCE, GASES POC Arterial 06/15/2025 1:16 PM CDT [facility] SITE POC No Charge 06/15/2025 1:16 PM CDT [facility] Blood 06/15/2025 1:16 PM CDT 06/15/2025 1:17 PM CDT Narrative [facility] - 06/15/2025 1:16 PM CDT References ranges displayed are for Arterial samples. Karlie Hamilton MD POINT OF CARE TESTING Final Res ult Performing Organization Address [facility]/ZIP Co de Phone Number [facility] CLIA # [id number] [address] [id number] * (ABNORMAL) BLOOD GAS ARTERIAL (06/15/2025 1:16 PM CDT) Pathologist [facility] PH BLOOD POC 7.48(H) 7.35 - 7.45 06/15/2025 1:16 PM [facility] PCO2 POC 37 35 - 45 mm Hg 06/15/2025 1:16 PM [facility] PO2 POC 73(L) 80 - 105 mm Hg 06/15/2025 1:16 PM [facility] HCO3 (CALC) POC 28(H) 22 - 26 mmol/L 06/15/2025 1:16 PM [facility] HEMOGLOBIN POC 7.7(L) 12.0 - 18.0 g/dL 06/15/2025 1:16 PM [facility] BASE EXCESS POC 4(H) -2 - 3 mmol/L 06/15/2025 1:16 PM [facility] O2 SATURATION POC 97 95 - 98 % 06/15/2025 1:16 PM [facility] SODIUM POC 135(L) 138 - 146 mmol/L 06/15/2025 1:16 PM [facility] POTASSIUM POC 3.5 3.5 - 4.9 mmol/L 06/15/2025 1:16 PM [facility] HEMATOCRIT POC 23(L) 38 - 51 % 06/15/2025 1:16 PM [facility] PH TEMP CORRECT 7.48(H) 7.35 - 7.45 06/15/20 1:16 PM [facility] PCO2 TEMP CORRECT 37 35 - 45 mm Hg 06/15/2025 1:16 PM [facility] PO2 TEMP CORRECT 73(L) 80 - 105 mm Hg 06/15/2025 1:16 PM [facility] SPECIMEN SOURCE, GASES POC Arterial 06/15/2025 1:16 PM [facility] CALCIUM IONIZED POC 4.6(L) 4.8 - 5.2 mg/dL 06/15/2025 1:16 PM [facility] TCO2 (CALC) POC 29(H) 23 - 27 mmol/L 06/15/2025 1:16 PM [facility] PUNC SITE POC No Charge 06/15/2025 1:16 PM CDT [facility] VENT MODE POC ECMO 06/15/2025 1:16 PM CDT [facility] PATIENT'S TEMPERATURE POC 37.0 degrees 06/15/2025 1:16 PM CDT [facility] SWEEP POC 2 L/min 06/15/2025 1:16 PM CDT [facility] ECMO FIO2 POC 100 % 06/15/2025 1:16 PM CDT [facility] ECMO FLOW POC 3 L/min 06/15/2025 1:16 PM CDT [facility] Blood, arterial 06/15/2025 1 :16 PM CDT 06/15/2025 1:17 PM CDT us Karlie Hamilton MD ABG ORDERABLES Final Result Performing Organization Address City/[facility]/ZIP Co de Phone Number [facility] CLIA # [id number] [address] [place] [address] [place] [address] * (ABNORMAL) POC GLUCOSE (06/15/2025 11:19 AM CDT) [facility] GLUCOSE POC 156(H) 74 - 99 mg/dL 06/15/2025 11:19 AM CDT [facility] SPECIMEN SOURCE, GLUCOSE POC Arterial 06/15/2025 11:19 AM CDT [facility] Blood, whole 06/15/2025 11:1 9 AM CDT 06/15/2025 11:26 AM CDT us Karlie Hamilton MD POINT OF CARE TESTING Final Res ult Performing Organization Address City/[facility]/ZIP Co de Phone Number [facility] CLIA # [id number] [address] [place] [address] [place], [place] [address] * (ABNORMAL) PTT (06/15/2025 11:14 AM CDT) PTT 51.7(H) 24.8 - 37.2 seconds 06/15/2025 11:44 AM CDT [facility] Blood Venipuncture / Unknown 06/15/2025 11:14 AM CDT 06/15/2025 11:20 AM CDT [facility] - 06/15/2025 11:44 AM CDT Therapeutic Range: Hi-level PE/DVT heparin protocol 80.1 - 95.0 sec Lo-level PE/DVT heparin protocol 70.1 - 85.0 sec Cardiac Heparin Protocol 70.1 - 100.0 sec Karlie Hamilton MD HEMATOLOGY ORDERABLES Final Res ult Performing Organization Address [facility] Co de Phone Number [facility] CLIA # [id number] [facility] [address] [place] [address] * POC LACTIC ACID (06/15/2025 9:50 AM CDT) LACTIC ACID POC 1.0 <=2.0 mmol/L 06/15/2025 9:50 AM CDT [facility] SPECIMEN SOURCE, GASES POC Arterial 06/15/2025 9:50 AM CDT [facility] SITE POC No Charge 06/15/2025 9:50 AM CDT [facility] Blood 06/15/2025 9:50 AM CDT 06/15/2025 9:52 AM CDT Narrative [facility] - 06/15/2025 9:50 AM CDT References ranges displayed are for Arterial samples. Karlie Hamilton MD POINT OF CARE TESTING Final Res ult Performing Organization Address [facility] Co de Phone Number [facility] CLIA # [id number] [address] [address] * (ABNORMAL) BLOOD GAS ARTERIAL (06/15/2025 9:50 AM [facility]) [facility] PH BLOOD POC 7.52(H) 7.35 - 7.45 06/15/2025 9:50 AM [facility] PCO2 POC 34(L) 35 - 45 mm Hg 06/15/2025 9:50 AM [facility] PO2 POC 82 80 - 105 mm Hg 06/15/2025 9:50 AM [facility] HCO3 (CALC) POC 28(H) 22 - 26 mmol/L 06/15/2025 9:50 AM [facility] HEMOGLOBIN POC 8.1(L) 12.0 - 18.0 g/dL 06/15/2025 9:50 AM [facility] BASE EXCESS POC 5(H) -2 - 3 mmol/L 06/15/2025 9:50 AM [facility] O2 SATURATION POC 98 95 - 98 % 06/15/2025 9:50 AM [facility] SODIUM POC 135(L) 138 - 146 mmol/L 06/15/2025 9:50 AM [facility] POTASSIUM POC 4.0 3.5 - 4.9 mmol/L 06/15/2025 9:50 AM [facility] HEMATOCRIT POC 24(L) 38 - 51 % 06/15/2025 9:50 AM [facility] PH TEMP CORRECT 7.52(H) 7.35 - 7.45 06/15/20 9:50 AM [facility] PCO2 TEMP CORRECT 34(L) 35 - 45 mm Hg 06/15/2025 9:50 AM [facility] PO2 TEMP CORRECT 82 80 - 105 mm Hg 06/15/2025 9:50 AM [facility] SPECIMEN SOURCE, GASES POC Arterial 06/15/2025 9:50 AM [facility] CALCIUM IONIZED POC 4.8 4.8 - 5.2 mg/dL 06/15/2025 9:50 AM CDT [facility] TCO2 (CALC) POC 29(H) 23 - 27 mmol/L 06/15/2025 9:50 AM CDT [facility] PUNC SITE POC No Charge 06/15/2025 9:50 AM CDT [facility] VENT MODE POC ECMO 06/15/2025 9:50 AM CDT [facility] PATIENT'S TEMPERATURE POC 37.0 degrees 06/15/2025 9:50 AM CDT [facility] SWEEP POC 3 L/min 06/15/2025 9:50 AM CDT [facility] ECMO FIO2 POC 100 % 06/15/2025 9:50 AM CDT [facility] ECMO FLOW POC 3 L/min 06/15/2025 9:50 AM CDT [facility] Blood, arterial 06/15/2025 9 :50 AM CDT 06/15/2025 9:52 AM CDT us Karlie Hamilton MD ABG ORDERABLES Final Result [facility] CLIA # [id number] [address] [place] [address] * (ABNORMAL) POC GLUCOSE (06/15/2025 9:44 AM CDT) GLUCOSE POC 176(H) 74 - 99 mg/dL 06/15/2025 9:44 AM CDT [facility] SPECIMEN SOURCE, GLUCOSE POC Arterial 06/15/2025 9:44 AM CDT [facility] Blood, whole 06/15/2025 9:44 AM CDT 06/15/2025 9:55 AM CDT us Karlie Hamilton MD POINT OF CARE TESTING Final Res ult [facility] CLIA # [id number] [address] [address] * (ABNORMAL) POC GLUCOSE (06/15/2025 7:13 AM CDT) GLUCOSE POC 142(H) 74 - 99 mg/dL 06/15/2025 7:13 AM CDT [facility] SPECIMEN SOURCE, GLUCOSE POC Arterial 06/15/2025 7:13 AM CDT [facility] Blood, whole 06/15/2025 7:13 AM CDT 06/15/2025 7:20 AM CDT Karlie Hamilton MD POINT OF CARE TESTING Final Res ult [facility] CLIA # [id number] [facility] [address] * (ABNORMAL) OXIMETRY (06/15/2025 5:33 AM CDT) [facility] OXYHEMOGLOBIN POC 62.6 40.0 - 70.0 % 06/15/2025 5:33 AM CDT [facility] HEMOGLOBIN POC 8.7(L) 12.0 - 18.0 g/dL 06/15/2025 5:33 AM CDT [facility] O2 SATURATION POC 64 40 - 70 % 025 5:33 AM CDT [facility] SPECIMEN SOURCE, GASES POC Venous Mixed 06/15/2025 5:33 AM CDT [facility] SAMPLE SITE, GASES POC N-SY 06/15/2025 5:33 AM CDT [facility] PUNC SITE POC No Charge 06/15/2025 5:33 AM CDT [facility] Blood 06/15/2025 5:33 AM CDT 06/15/2025 5:34 AM CDT Karlie Hamilton MD ABG ORDERABLES Final Result Performing Organization Address [facility]/ZIP Co de Phone Number [facility] CLIA # [id number] [address] [place] [address] * POC LACTIC ACID (06/15/2025 5:20 AM CDT) LACTIC ACID POC 1.0 <=2.0 mmol/L 06/15/2025 5:20 AM CDT [facility] SPECIMEN SOURCE, GASES POC Arterial 06/15/2025 5:20 AM CDT [facility] PUNC SITE POC No Charge 06/15/2025 5:20 AM CDT [facility] Blood 06/15/2025 5:20 AM CDT 06/15/2025 5:22 AM CDT Narrative [facility] - 06/15/2025 5:20 AM CDT References ranges displayed are for Arterial samples. Karlie Hamilton MD POINT OF CARE TESTING Final Res ult Performing Organization Address [facility] Co de Phone Number [facility] CLIA # [id number] [address] [place] [address] * (ABNORMAL) BLOOD GAS ARTERIAL (06/15/2025 5:20 AM CDT) PH BLOOD POC 7.49(H) 7.35 - 7.45 06/15/2025 5:20 AM CDT [facility] PCO2 POC 35 35 - 45 mm Hg 06/15/2025 5:20 AM CDT [facility] PO2 POC 70(L) 80 - 105 mm Hg 06/15/2025 5:20 AM CDT [facility] HCO3 (CALC) POC 27(H) 22 - 26 mmol/L 06/15/2025 5:20 AM [facility] HEMOGLOBIN POC 8.3(L) 12.0 - 18.0 g/dL 06/15/2025 5:20 AM [facility] BASE EXCESS POC 3 -2 - 3 mmol/L 06/15/2025 5:20 AM [facility] O2 SATURATION POC 97 95 - 98 % 025 5:20 AM [facility] SODIUM POC 135(L) 138 - 146 mmol/L 06/15/2025 5:20 AM [facility] POTASSIUM POC 3.8 3.5 - 4.9 mmol/L 06/15/2025 5:20 AM [facility] HEMATOCRIT POC 25(L) 38 - 51 % 06/15/2025 5:20 AM [facility] PH TEMP CORRECT 7.49(H) 7.35 - 7.45 06/15/2025 5:20 AM [facility] PCO2 TEMP CORRECT 35 35 - 45 mm Hg 06/15/2025 5:20 AM [facility] PO2 TEMP CORRECT 70(L) 80 - 105 mm Hg 06/15/2025 5:20 AM [facility] SPECIMEN SOURCE, GASES POC Arterial 06/15/2025 5:20 AM [facility] CALCIUM IONIZED POC 4.9 4.8 - 5.2 mg/dL 06/15/2025 5:20 AM [facility] TCO2 (CALC) POC 28(H) 23 - 27 mmol/L 06/15/2025 5:20 AM [facility] FIO2 70.0 21.0 - 100.0 % 06/15/2025 5:20 AM [facility] Comment:FIO2 values reported <21.0 indicate O2 flow in Liters/minute. Values >/= 21.0 indicate percent O2. P/F RATIO POC 100 06/15/2025 5:20 AM [facility] Comment: P/F Ratio Interpretation ARDS SEVERITY PaO2/FiO2 Mild 200-300 Moderate 100-200 Severe <100 PEEP POC 10 06/15/2025 5:20 AM CDT [facility] PUNC SITE POC No Charge 06/15/2025 5:20 AM CDT [facility] VENT MODE POC ECMO 06/15/2025 5:20 AM CDT [facility] PATIENT'S TEMPERATURE POC 37.0 degrees 06/15/2025 5:20 AM CDT [facility] SWEEP POC 3 L/min 06/15/2025 5:20 AM CDT [facility] ECMO FIO2 POC 100 % 06/15/2025 5:20 AM CDT [facility] Blood, arterial 06/15/2025 5 :20 AM CDT 06/15/2025 5:22 AM CDT us Karlie Hamilton MD ABG ORDERABLES Final Result Performing Organization Address City/[facility]/ZIP Co de Phone Number [facility] CLIA # [id number] [address] [id number] * (ABNORMAL) POC GLUCOSE (06/15/2025 5:19 AM CDT) [facility] GLUCOSE POC 145(H) 74 - 99 mg/dL 06/15/2025 5:19 AM CDT [facility] SPECIMEN SOURCE, GLUCOSE POC Arterial 06/15/2025 5:19 AM CDT [facility] Blood, whole 06/15/2025 5:19 AM CDT 06/15/2025 6:16 AM CDT us Karlie Hamilton MD POINT OF CARE TESTING Final Res ult [facility] CLIA # [id number] [address] [id number] * (ABNORMAL) POC GLUCOSE (06/15/2025 4:05 AM CDT) GLUCOSE POC 156(H) 74 - 99 mg/dL 06/15/2025 4:05 AM CDT [facility] SPECIMEN SOURCE, GLUCOSE POC Arterial 06/15/2025 4:05 AM CDT [facility] Blood, whole 06/15/2025 4:05 AM CDT 06/15/2025 6:16 AM CDT us Karlie Hamilton MD POINT OF CARE TESTING Final Res ult Performing Organization Address [facility] Co de Phone Number [facility] CLIA # [id number] [address] [address] * HAPTOGLOBIN (06/15/2025 4:03 AM CDT) HAPTOGLOBIN 181 30 - 200 mg/dL 06/15/2025 5:48 AM CDT [facility] Blood Venipuncture / Unknown 06/15/2025 4:03 AM CDT 06/15/2025 4:10 AM CDT us Zenaida Michel MD CHEMISTRY ORDERABLES Final Resul t Performing Organization Address [facility] Co de Phone Number [facility] CLIA # [id number] [address] [address] * (ABNORMAL) PTT (06/15/2025 4:03 AM CDT) PTT 49.9(H) 24.8 - 37.2 seconds 06/15/2025 4:26 AM CDT [facility] Blood Venipuncture / Unknown 06/15/2025 4:03 AM CDT 06/15/2025 4:09 AM CDT Narrative [facility] - 06/15/2025 4:26 AM CDT Therapeutic Range: Hi-level PE/DVT heparin protocol 80.1 - 95.0 sec Lo-level PE/DVT heparin protocol 70.1 - 85.0 sec Cardiac Heparin Protocol 70.1 - 100.0 sec us Karlie Hamilton MD HEMATOLOGY ORDERABLES Final Res ult Performing Organization Address [facility] Co de Phone Number [facility] CLIA # [id number] [address] [address] [place] [address] * (ABNORMAL) TROPONIN (06/15/2025 4:03 AM CDT) [facility] TROPONIN T, 5TH GEN 2,649(HH) <=15 ng/L 06/15/2025 4:54 AM CDT [facility] Blood Venipuncture / Unknown 06/15/2025 4:03 AM CDT 06/15/2025 4:10 AM CDT Narrative [facility] - 06/15/2025 4:54 AM CDT Troponin elevated. us Prince Yordan SANTANA CHEMISTRY ORDERABLES Final Resul t Performing Organization Address [facility] de Phone Number [facility] CLIA # [id number] [address] [address] * (ABNORMAL) LACTATE DEHYDROGENASE (06/15/2025 4:03 AM CDT) LD (LACTATE DEHYDROGENASE) 666(H) 135 - 225 U/L 06/15/2025 5:46 AM CDT [facility] Blood Venipuncture / Unknown 06/15/2025 4:03 AM CDT 06/15/2025 4:10 AM CDT us Zenaida Micehl MD CHEMISTRY ORDERABLES Final Resul t Performing Organization Address City/[facility]/ZIP Co de Phone Number [facility] CLIA # [id number] [address] [id number] * (ABNORMAL) PHOSPHORUS (06/15/2025 4:03 AM CDT) PHOSPHORUS 2.0(L) 2.5 - 4.5 mg/dL 06/15/2025 5:48 AM CDT [facility] Blood Venipuncture / Unknown 06/15/2025 4:03 AM CDT 06/15/2025 4:10 AM CDT Zenaida Michel MD CHEMISTRY ORDERABLES Final Resul t Performing Organization Address City/[facility]/ZIP Co de Phone Number [facility] CLIA # [id number] [address] [address] * MAGNESIUM LEVEL (06/15/2025 4:03 AM CDT) Pathologist [facility] [place] MAGNESIUM 2.2 1.6 - 2.4 mg/dL 06/15/2025 5:48 AM CDT [facility] Blood Venipuncture / Unknown 06/15/2025 4:03 AM CDT 06/15/2025 4:10 AM CDT Zenaida Michel MD CHEMISTRY ORDERABLES Final Resul t [facility] CLIA # [id number] [address] [address] * (ABNORMAL) COMPREHENSIVE METABOLIC PANEL (06/15/2025 4:03 AM CDT) SODIUM 138 136 - 145 mmol/L 06/15/2025 5:48 AM CDT [facility] POTASSIUM 4.1 3.5 - 5.1 mmol/L 06/15/2025 5:48 AM [facility] CHLORIDE 103 98 - 107 mmol/L 06/15/2025 5:48 AM [facility] CO2 23 22 - 29 mmol/L 06/15/2025 5:48 AM [facility] CALCIUM 8.8 8.8 - 10.2 mg/dL 06/15/2025 5:48 AM [facility] BUN 31(H) 8 - 23 mg/dL 06/15/2025 5:48 AM [facility] CREATININE 0.85 0.67 - 1.17 mg/dL 06/15/2025 5:48 AM [facility] GLUCOSE 159(H) 74 - 99 mg/dL 06/15/2025 5:48 AM [facility] TOTAL PROTEIN 5.5(L) 6.4 - 8.3 g/dL 06/15/2025 5:48 AM [facility] ALBUMIN 2.9(L) 3.5 - 5.2 g/dL 06/15/2025 5:48 AM [facility] BILIRUBIN TOTAL 0.7 0.0 - 1.0 mg/dL 06/15/2025 5:48 AM [facility] ALKALINE PHOSPHATASE 66 40 - 129 U/L 06/15/2025 5:48 AM [facility] AST 104(H) 10 - 50 U/L 06/15/2025 5:48 AM [facility] ALT 71(H) <=50 U/L 06/15/2025 5:48 AM [facility] GFR >60 >=60 mL/min/1.7 3 sq meter 06/15/2025 5:48 AM [facility] Comment:eGFR calculated with 2020 CKD-EPI equation. Vegetarian diet, extremely high or low muscle mass, and may affect results. Cystatin C with Glomerular Filtration Rate is a suitable alternative for these patients. ANION GAP 12 9 - 20 mmol/L 06/15/2025 5:48 AM [facility] Blood Venipuncture / Unknown 06/15/2025 4:03 AM CDT 06/15/2025 4:10 AM CDT us Zenaida Michel MD CHEMISTRY ORDERABLES Final Resul t [facility] CLIA # [id number] [address] [place] [address] [place] [address] * (ABNORMAL) CBC WITH DIFFERENTIAL (06/15/2025 4:03 AM CDT) Pathologist [facility] [place] WBC 12.5(H) 4.8 - 10.8 K/uL 06/15/2025 4:25 AM CDT [facility] RBC 2.61(L) 4.60 - 6.20 M/uL 06/15/2025 4:25 AM CDT [facility] HEMOGLOBIN 8.2(L) 14.0 - 18.0 g/dL 06/15/2025 4:25 AM CDT [facility] HEMATOCRIT 24.8(L) 41.0 - 53.0 % 06/15/2025 4:25 AM CDT [facility] MCV 95.0 84.0 - 103.0 fL 06/15/2025 4:25 AM CDT [facility] MCH 31.4 27.0 - 34.0 pg 06/15/2025 4:25 AM CDT [facility] MCHC 33.1 30.0 - 35.0 g/dL 06/15/2025 4:25 AM CDT [facility] PLATELETS 92(L) 140 - 440 K/uL 06/15/2025 4:25 AM CDT [facility] MPV 10.0 8.9 - 12.8 fL 06/15/2025 4:25 AM CDT [facility] RDW 14.2 11.0 - 14.5 % 06/15/2025 4:25 AM CDT [facility] RDW-STDEV 49.4 37.0 - 54.0 fL 06/15/2025 4:25 AM T [facility] NEUTROPHILS 81(H) 42 - 75 % 06/15/2025 4:25 AM [facility] LYMPHOCYTES 10(L) 24 - 44 % 06/15/2025 4:25 AM [facility] MONOCYTES 7 2 - 10 % 06/15/2025 4:25 AM T [facility] EOSINOPHILS 1 0 - 7 % 06/15/2025 4:25 AM T [facility] BASOPHILS 0 0 - 1 % 06/15/2025 4:25 AM [facility] IMMATURE GRANULOCYTES 1 0 - 2 % 06/15/2025 4:25 AM [facility] NEUTROPHIL ABSOLUTE 10.10(H) 2.00 - 8.00 K/uL 06/15/2025 4:25 AM [facility] LYMPHOCYTE ABSOLUTE 1.24 1.20 - 4.00 K/uL 06/15/2025 4:25 AM T [facility] MONOCYTE ABSOLUTE 0.86(H) 0.10 - 0.60 K/uL 06/15/2025 4:25 AM [facility] EOSINOPHIL ABSOLUTE 0.08 0.00 - 0.70 K/uL 06/15/2025 4:25 AM [facility] BASOPHILS ABSOLUTE 0.05 0.00 - 0.20 K/uL 06/15/2025 4:25 AM [facility] IMMATURE GRANULOCYTES ABSOLUTE 0.17(H) 0.00 - 0.10 K/uL 06/15/2025 4:25 AM [facility] SMEAR REVIEWED: PLT - Confirmed on smear. 06/15/2025 4:25 AM [facility] Blood Venipuncture / Unknown 06/15/2025 4:03 AM CDT 06/15/2025 4:09 AM CDT us Zenaida Michel MD HEMATOLOGY ORDERABLES Final Resu lt [id number] [address] [place] [address] * XR CHEST PA OR AP 1 VW (06/15/2025 3:57 AM CDT) Anatomical Region Laterality Modality Chest Computed Radiogr aphy 06/15/2025 3:57 AM CDT Impressions 06/15/2025 7:34 AM CDT IMPRESSION: See below. Exam: XR CHEST PA OR AP 1 VW Date/Time of Exam: 06/15/2025 3:57 AM Reason For Exam: Line Placement. Diagnosis: ST elevation myocardial infarction (STEMI), unspecified artery; Cardiac arrest with ventricular fibrillation (CMS/HCC); Cardiac arrest with ventricular fibrillation (CMS/HCC); CHB (complete heart block); Laboratory test. Prior: 06/14/2025 Findings: Unchanged position of the endotracheal tube, pulmonary artery catheter and partially visualized feeding catheter. Unchanged intra-aortic balloon pump marker. Persistent pulmonary vascular congestion. Small left pleural effusion and bibasilar atelectasis. No pneumothorax. Osseous structures are unchanged. Narrative Procedure Note Huan Hussein, DO - 06/15/2025 IMPRESSION: See below. Exam: XR CHEST PA OR AP 1 VW Date/Time of Exam: 06/15/2025 3:57 AM Reason For Exam: Line Placement. Diagnosis: ST elevation myocardial infarction (STEMI), unspecified artery; Cardiac arrest with ventricular fibrillation (CMS/HCC); Cardiac arrest with ventricular fibrillation (CMS/HCC); CHB (complete heart block); Laboratory test. Prior: 06/14/2025 Findings: Unchanged position of the endotracheal tube, pulmonary artery catheter and partially visualized feeding catheter. Unchanged intra-aortic balloon pump marker. Persistent pulmonary vascular congestion. Small left pleural effusion and bibasilar atelectasis. No pneumothorax. Osseous structures are unchanged. us Karlie Hamilton MD DIAGNOSTIC IMAGING ORDERABLES F inal Result * (ABNORMAL) POC GLUCOSE (06/15/2025 2:11 AM CDT) GLUCOSE POC 139(H) 74 - 99 mg/dL 06/15/2025 2:11 AM CDT [facility] SPECIMEN SOURCE, GLUCOSE POC Arterial 06/15/2025 2:11 AM CDT [facility] Blood, whole 06/15/2025 2:11 AM CDT 06/15/2025 6:15 AM CDT us Karlie Hamilton MD POINT OF CARE TESTING Final Res ult [facility] CLIA # [id number] [address] [place] [address] * EKG 12-LEAD (06/15/2025 12:32 AM CDT) 06/15/2025 12:3 2 AM CDT Narrative INTERFACE SYSTEM - 06/16/2025 10:57 AM CDT [address] [address] Test Date: 2025-06-15 Pat Name: ISAAC NOEMI Department: 12 Room: [address] [place] [address] Gender: Male Compliance Representative: [id number] : 1960 Requested By: Order Number: [id number] Reading MD: Avni Ramirez Measurements Intervals Malin Rate: 78 P: -24 GA: 400 QRS: 47 QRSD: 94 T: 225 QT: 352 QTc: 401 Interpretive Statements Sinus rhythm with 1st degree AV block Low voltage QRS Cannot rule out Anterior infarct, age undetermined Abnormal ECG Electronically Signed On 06-16-2025 10:57:51 CDT by Avni Ramirez Procedure Note Avni Ramirez MD - 06/16/[address] [address] Test Date: 2025-06-15 Pat Name: ISAAC FRANKLIN Department: 12 Room: [address] [place] [address] Gender: Male Compliance Representative: [id number] : 1960 Requested By: Order Number: [id number] Reading MD: Avni Ramirez Measurements Intervals Malin Rate: 78 P: -24 GA: 400 QRS: 47 QRSD: 94 T: 225 QT: 352 QTc: 401 Interpretive Statements Sinus rhythm with 1st degree AV block Low voltage QRS Cannot rule out Anterior infarct, age undetermined Abnormal ECG Electronically Signed On 06-16-2025 10:57:51 CDT by Avni Ramirez us Prince Yordan SANTANA ECG ORDERABLES Final Result Performing Organization Address City/[facility]/ZIP Co de Phone Number INTERFACE SYSTEM Refer to clinic/hospital department * POC LACTIC ACID (06/15/2025 12:05 AM CDT) LACTIC ACID POC 1.5 <=2.0 mmol/L 06/15/2025 12:05 AM CDT [facility] SPECIMEN SOURCE, GASES POC Arterial 06/15/2025 12:05 AM CDT [facility] PUN SITE POC No Charge 06/15/2025 12:05 AM CDT [facility] Blood 06/15/2025 12:0 5 AM CDT 06/15/2025 12:06 AM CDT Narrative [facility] - 06/15/2025 12:05 AM CDT References ranges displayed are for Arterial samples. us Karlie Hamilton MD POINT OF CARE TESTING Final Res ult Performing Organization Address City/[facility]/ZIP Co de Phone Number [facility] CLIA # [id number] [address] [address] [place], [place] [address] * (ABNORMAL) BLOOD GAS ARTERIAL (06/15/2025 12:05 AM CDT) PH BLOOD POC 7.45 7.35 - 7.45 06/15/2025 12:05 AM CDT [facility] PCO2 POC 39 35 - 45 mm Hg 06/15/2025 12:05 AM [facility] PO2 POC 178(H) 80 - 105 mm Hg 06/15/2025 12:05 AM [facility] HCO3 (CALC) POC 27(H) 22 - 26 mmol/L 06/15/2025 12:05 AM [facility] HEMOGLOBIN POC 8.8(L) 12.0 - 18.0 g/dL 06/15/2025 12:05 AM [facility] BASE EXCESS POC 3 -2 - 3 mmol/L 06/15/2025 12:05 AM [facility] O2 SATURATION POC 99(H) 95 - 98 % 025 12:05 AM [facility] SODIUM POC 135(L) 138 - 146 mmol/L 06/15/2025 12:05 AM [facility] POTASSIUM POC 4.6 3.5 - 4.9 mmol/L 06/15/2025 12:05 AM [facility] HEMATOCRIT POC 26(L) 38 - 51 % 06/15/2025 12:05 AM [facility] PH TEMP CORRECT 7.45 7.35 - 7.45 06/15/2025 12:05 AM [facility] PCO2 TEMP CORRECT 39 35 - 45 mm Hg 06/15/2025 12:05 AM [facility] PO2 TEMP CORRECT 178(H) 80 - 105 mm Hg 06/15/2025 12:05 AM [facility] SPECIMEN SOURCE, GASES POC Arterial 06/15/2025 12:05 AM [facility] CALCIUM IONIZED POC 5.0 4.8 - 5.2 mg/dL 06/15/2025 12:05 AM [facility] TCO2 (CALC) POC 28(H) 23 - 27 mmol/L 06/15/2025 12:05 AM [facility] FIO2 80.0 21.0 - 100.0 % 06/15/2025 12:05 AM [facility] Comment:FIO2 values reported <21.0 indicate O2 flow in Liters/minute. Values >/= 21.0 indicate percent O2. P/F RATIO POC 223 06/15/2025 12:05 AM T [facility] Comment: P/F Ratio Interpretation ARDS SEVERITY PaO2/FiO2 Mild 200-300 Moderate 100-200 Severe <100 [facility] SITE POC No Charge 06/15/2025 12:05 AM T [facility] PATIENT'S TEMPERATURE POC 37.0 degrees 06/15/2025 12:05 AM T [facility] SWEEP POC 3 L/min 06/15/2025 12:05 AM T [facility] ECMO FIO2 POC 100 % 06/15/2025 12:05 AM T [facility] ECMO FLOW POC 4 L/min 06/15/2025 12:05 AM T [facility] Blood, arterial 06/15/2025 1 2:05 AM CDT 06/15/2025 12:06 AM CDT us Karlie Hamilton MD ABG ORDERABLES Final Result Performing Organization Address City/[facility]/ZIP Co de Phone Number [facility] CLIA # [id number] [address] [address] * (ABNORMAL) POC GLUCOSE (06/15/2025 12:03 AM CDT) GLUCOSE POC 127(H) 74 - 99 mg/dL 06/15/2025 12:03 AM CDT [facility] SPECIMEN SOURCE, GLUCOSE POC Arterial 06/15/2025 12:03 AM CDT [facility] Blood, whole 06/15/2025 12:0 3 AM CDT 06/15/2025 12:12 AM CDT us Karlie Hamilton MD POINT OF CARE TESTING Final Res ult Performing Organization Address City/[facility]/ZIP Co de Phone Number [facility] CLIA # [id number] [address] [place] [address] * (ABNORMAL) POC GLUCOSE (06/14/2025 10:02 PM CDT) GLUCOSE POC 122(H) 74 - 99 mg/dL 06/14/2025 10:02 PM CDT [facility] SPECIMEN SOURCE, GLUCOSE POC Arterial 06/14/2025 10:02 PM CDT [facility] Blood, whole 06/14/2025 10:0 2 PM CDT 06/14/2025 10:10 PM CDT Karlie Hamilton MD POINT OF CARE TESTING Final Res ult Performing Organization Address [facility]/ZIP Co de Phone Number [facility] CLIA # [id number] [address] [place] [address] * POC LACTIC ACID (06/14/2025 8:06 PM CDT) Pathologist [facility] [place] LACTIC ACID POC 1.1 <=2.0 mmol/L 06/14/2025 8:06 PM CDT [facility] SPECIMEN SOURCE, GASES POC Arterial 06/14/2025 8:06 PM CDT [facility] SITE POC No Charge 06/14/2025 8:06 PM CDT [facility] Blood 06/14/2025 8:06 PM CDT 06/14/2025 8:08 PM CDT Narrative [facility] - 06/14/2025 8:06 PM CDT References ranges displayed are for Arterial samples. Karlie Hamilton MD POINT OF CARE TESTING Final Res ult Performing Organization Address [facility]/ZIP Co de Phone Number [facility] CLIA # [id number] [address] [facility] [place] [address] * (ABNORMAL) BLOOD GAS ARTERIAL (06/14/2025 8:06 PM [facility]) [facility] PH BLOOD POC 7.49(H) 7.35 - 7.45 06/14/2025 8:06 PM [facility] PCO2 POC 35 35 - 45 mm Hg 06/14/2025 8:06 PM [facility] PO2 POC 73(L) 80 - 105 mm Hg 06/14/2025 8:06 PM [facility] HCO3 (CALC) POC 27(H) 22 - 26 mmol/L 06/14/2025 8:06 PM [facility] HEMOGLOBIN POC 8.8(L) 12.0 - 18.0 g/dL 06/14/2025 8:06 PM [facility] BASE EXCESS POC 3 -2 - 3 mmol/L 06/14/2025 8:06 PM [facility] O2 SATURATION POC 96 95 - 98 % 025 8:06 PM [facility] SODIUM POC 135(L) 138 - 146 mmol/L 06/14/2025 8:06 PM [facility] POTASSIUM POC 4.2 3.5 - 4.9 mmol/L 06/14/2025 8:06 PM [facility] HEMATOCRIT POC 26(L) 38 - 51 % 06/14/2025 8:06 PM [facility] PH TEMP CORRECT 7.49(H) 7.35 - 7.45 06/14/2025 8:06 PM [facility] PCO2 TEMP CORRECT 35 35 - 45 mm Hg 06/14/2025 8:06 PM [facility] PO2 TEMP CORRECT 73(L) 80 - 105 mm Hg 06/14/2025 8:06 PM [facility] SPECIMEN SOURCE, GASES POC Arterial 06/14/2025 8:06 PM [facility] CALCIUM IONIZED POC 5.0 4.8 - 5.2 mg/dL 06/14/2025 8:06 PM CDT [facility] TCO2 (CALC) POC 28(H) 23 - 27 mmol/L 06/14/2025 8:06 PM CDT [facility] FIO2 80.0 21.0 - 100.0 % 06/14/2025 8:06 PM T [facility] Comment:FIO2 values reported <21.0 indicate O2 flow in Liters/minute. Values >/= 21.0 indicate percent O2. P/F RATIO POC 91 06/14/2025 8:06 PM CDT [facility] Comment: P/F Ratio Interpretation ARDS SEVERITY PaO2/FiO2 Mild 200-300 Moderate 100-200 Severe <100 PEEP POC 10 06/14/2025 8:06 PM CDT [facility] PUNC SITE POC No Charge 06/14/2025 8:06 PM T [facility] PATIENT'S TEMPERATURE POC 37.0 degrees 06/14/2025 8:06 PM T [facility] SWEEP POC 3 L/min 06/14/2025 8:06 PM T [facility] ECMO FIO2 POC 100 % 06/14/2025 8:06 PM T [facility] ECMO FLOW POC 4 L/min 06/14/2025 8:06 PM T [facility] Blood, arterial 06/14/2025 8 :06 PM CDT 06/14/2025 8:08 PM CDT us Karlie Hamilton MD ABG ORDERABLES Final Result [facility] CLIA # [id number] [address] [place] [address] [place], [place] [address] * (ABNORMAL) PTT (06/14/2025 8:05 PM CDT) PTT 49.1(H) 24.8 - 37.2 seconds 06/14/2025 8:24 PM CDT [facility] Blood Venipuncture / Unknown 06/14/2025 8:05 PM CDT 06/14/2025 8:08 PM CDT Narrative [facility] - 06/14/2025 8:24 PM CDT Therapeutic Range: Hi-level PE/DVT heparin protocol 80.1 - 95.0 sec Lo-level PE/DVT heparin protocol 70.1 - 85.0 sec Cardiac Heparin Protocol 70.1 - 100.0 sec Karlie Hamilton MD HEMATOLOGY ORDERABLES Final Res ult Performing Organization Address [facility] de Phone Number [facility] CLIA # [id number] [address] [address] * MAGNESIUM LEVEL (06/14/2025 8:05 PM CDT) MAGNESIUM 2.2 1.6 - 2.4 mg/dL 06/14/2025 8:46 PM CDT [facility] Blood Venipuncture / Unknown 06/14/2025 8:05 PM CDT 06/14/2025 8:08 PM CDT Karlie Hamilton MD CHEMISTRY ORDERABLES Final Resu lt Performing Organization Address [facility] de Phone Number [facility] CLIA # [id number] [address] [address] * (ABNORMAL) BASIC METABOLIC PANEL (06/14/2025 8:05 PM CDT) SODIUM 137 136 - 145 mmol/L 06/14/2025 8:46 PM CDT [facility] POTASSIUM 4.1 3.5 - 5.1 mmol/L 06/14/2025 8:46 PM CDT [facility] CHLORIDE 102 98 - 107 mmol/L 06/14/2025 8:46 PM CDT [facility] CO2 23 22 - 29 mmol/L 06/14/2025 8:46 PM CDT [facility] CALCIUM 8.7(L) 8.8 - 10.2 mg/dL 06/14/2025 8:46 PM CDT [facility] BUN 30(H) 8 - 23 mg/dL 06/14/2025 8:46 PM CDT [facility] CREATININE 0.91 0.67 - 1.17 mg/dL 06/14/2025 8:46 PM CDT [facility] GLUCOSE 129(H) 74 - 99 mg/dL 06/14/2025 8:46 PM CDT [facility] GFR >60 >=60 mL/min/1.7 3 sq meter 06/14/2025 8:46 PM CDT [facility] Comment:eGFR calculated with 2020 CKD-EPI equation. Vegetarian diet, extremely high or low muscle mass, and may affect results. Cystatin C with Glomerular Filtration Rate is a suitable alternative for these patients. ANION GAP 12 9 - 20 mmol/L 06/14/2025 8:46 PM CDT [facility] Blood Venipuncture / Unknown 06/14/2025 8:05 PM CDT 06/14/2025 8:08 PM CDT us Karlie Hamilton MD CHEMISTRY ORDERABLES Final Resu lt [facility] CLIA # [id number] [address] [place] [address] * (ABNORMAL) POC GLUCOSE (06/14/2025 8:04 PM CDT) GLUCOSE POC 130(H) 74 - 99 mg/dL 06/14/2025 8:04 PM CDT [facility] SPECIMEN SOURCE, GLUCOSE POC Arterial 06/14/2025 8:04 PM CDT [facility] Blood, whole 06/14/2025 8:04 PM CDT 06/14/2025 8:33 PM CDT Karlie Hamilton MD POINT OF CARE TESTING Final Res ult Performing Organization Address City/[facility]/ZIP Co de Phone Number [facility] CLIA # [id number] [address] [facility] [place] [address] * (ABNORMAL) POC GLUCOSE (06/14/2025 7:13 PM CDT) GLUCOSE POC 126(H) 74 - 99 mg/dL 06/14/2025 7:13 PM CDT [facility] SPECIMEN SOURCE, GLUCOSE POC Arterial 06/14/2025 7:13 PM CDT [facility] Blood, whole 06/14/2025 7:13 PM CDT 06/14/2025 8:33 PM CDT Karlie Hamilton MD POINT OF CARE TESTING Final Res ult Performing Organization Address [facility] Co de Phone Number [facility] CLIA # [id number] [address] [address] * (ABNORMAL) POC GLUCOSE (06/14/2025 6:09 PM CDT) GLUCOSE POC 124(H) 74 - 99 mg/dL 06/14/2025 6:09 PM CDT [facility] SPECIMEN SOURCE, GLUCOSE POC Arterial 06/14/2025 6:09 PM CDT [facility] Blood, whole 06/14/2025 6:09 PM CDT 06/14/2025 6:18 PM CDT Karlie Hamilton MD POINT OF CARE TESTING Final Res ult [facility] CLIA # [id number] [address] [place] [address] * POC LACTIC ACID (06/14/2025 6:08 PM CDT) [facility] LACTIC ACID POC 1.3 <=2.0 mmol/L 06/14/2025 6:08 PM CDT [facility] SPECIMEN SOURCE, GASES POC Arterial 06/14/2025 6:08 PM CDT [facility] PUNC SITE POC No Charge 06/14/2025 6:08 PM CDT [facility] Blood 06/14/2025 6:08 PM CDT 06/14/2025 6:09 PM CDT [facility] - 06/14/2025 6:08 PM CDT References ranges displayed are for Arterial samples. Karlie Hamilton MD POINT OF CARE TESTING Final Res ult [facility] CLIA # [id number] [address] [place] [address] * (ABNORMAL) BLOOD GAS ARTERIAL (06/14/2025 6:08 PM CDT) [facility] PH BLOOD POC 7.48(H) 7.35 - 7.45 06/14/2025 6:08 PM CDT [facility] PCO2 POC 36 35 - 45 mm Hg 06/14/2025 6:08 PM CDT [facility] PO2 POC 102 80 - 105 mm Hg 06/14/2025 6:08 PM CDT [facility] HCO3 (CALC) POC 27(H) 22 - 26 mmol/L 06/14/2025 6:08 PM CDT [facility] HEMOGLOBIN POC 8.9(L) 12.0 - 18.0 g/dL 06/14/2025 6:08 PM CDT [facility] BASE EXCESS POC 3 -2 - 3 mmol/L 06/14/2025 6:08 PM [facility] O2 SATURATION POC 99(H) 95 - 98 % 025 6:08 PM [facility] SODIUM POC 134(L) 138 - 146 mmol/L 06/14/2025 6:08 PM [facility] POTASSIUM POC 4.2 3.5 - 4.9 mmol/L 06/14/2025 6:08 PM [facility] HEMATOCRIT POC 27(L) 38 - 51 % 06/14/2025 6:08 PM [facility] PH TEMP CORRECT 7.48(H) 7.35 - 7.45 06/14/2025 6:08 PM [facility] PCO2 TEMP CORRECT 36 35 - 45 mm Hg 06/14/2025 6:08 PM [facility] PO2 TEMP CORRECT 102 80 - 105 mm Hg 06/14/2025 6:08 PM [facility] SPECIMEN SOURCE, GASES POC Arterial 06/14/2025 6:08 PM [facility] CALCIUM IONIZED POC 5.0 4.8 - 5.2 mg/dL 06/14/2025 6:08 PM [facility] TCO2 (CALC) POC 28(H) 23 - 27 mmol/L 06/14/2025 6:08 PM [facility] FIO2 100.0 21.0 - 100.0 % 06/14/2025 6:08 PM [facility] Comment:FIO2 values reported <21.0 indicate O2 flow in Liters/minute. Values >/= 21.0 indicate percent O2. P/F RATIO POC 102 06/14/2025 6:08 PM [facility] Comment: P/F Ratio Interpretation ARDS SEVERITY PaO2/FiO2 Mild 200-300 Moderate 100-200 Severe <100 PEEP POC 10 06/14/2025 6:08 PM [facility] PUNC SITE POC No Charge 06/14/2025 6:08 PM [facility] PATIENT'S TEMPERATURE POC 37.0 degrees 06/14/2025 6:08 PM CDT [facility] SWEEP POC 3 L/min 06/14/2025 6:08 PM CDT [facility] ECMO FIO2 POC 100 % 06/14/2025 6:08 PM CDT [facility] Blood, arterial 06/14/2025 6 :08 PM CDT 06/14/2025 6:09 PM CDT Karlie Hamilton MD ABG ORDERABLES Final Result Performing Organization Address [facility]/ZIP Co de Phone Number [facility] CLIA # [id number] [address] [id number] * (ABNORMAL) POC GLUCOSE (06/14/2025 5:18 PM CDT) GLUCOSE POC 121(H) 74 - 99 mg/dL 06/14/2025 5:18 PM CDT [facility] SPECIMEN SOURCE, GLUCOSE POC Arterial 06/14/2025 5:18 PM CDT [facility] Blood, whole 06/14/2025 5:18 PM CDT 06/14/2025 5:32 PM CDT Karlie Hamilton MD POINT OF CARE TESTING Final Res ult Performing Organization Address [facility]/ZIP Co de Phone Number [facility] CLIA # [id number] [address] [id number] * (ABNORMAL) POC GLUCOSE (06/14/2025 3:30 PM CDT) GLUCOSE POC 127(H) 74 - 99 mg/dL 06/14/2025 3:30 PM CDT [facility] SPECIMEN SOURCE, GLUCOSE POC Arterial 06/14/2025 3:30 PM CDT [facility] Blood, whole 06/14/2025 3:30 PM CDT 06/14/2025 3:49 PM CDT us Karlie Hamilton MD POINT OF CARE TESTING Final Res ult Performing Organization Address [facility]/ZIP Co de Phone Number [facility] CLIA # [id number] [address] [address] * (ABNORMAL) POC GLUCOSE (06/14/2025 2:11 PM CDT) GLUCOSE POC 116(H) 74 - 99 mg/dL 06/14/2025 2:11 PM CDT [facility] SPECIMEN SOURCE, GLUCOSE POC Arterial 06/14/2025 2:11 PM CDT [facility] Blood, whole 06/14/2025 2:11 PM CDT 06/14/2025 3:49 PM CDT us Karlie Hamilton MD POINT OF CARE TESTING Final Res ult Performing Organization Address [facility]/ZIP Co de Phone Number [facility] CLIA # [id number] [phone] [id number] * POC LACTIC ACID (06/14/2025 1:40 PM CDT) LACTIC ACID POC 1.5 <=2.0 mmol/L 06/14/2025 1:40 PM CDT [facility] SPECIMEN SOURCE, GASES POC Arterial 06/14/2025 1:40 PM CDT [facility] SITE POC No Charge 06/14/2025 1:40 PM CDT [facility] Blood 06/14/2025 1:40 PM CDT 06/14/2025 1:41 PM CDT Narrative [facility] - 06/14/2025 1:40 PM CDT References ranges displayed are for Arterial samples. us Karlie Hamilton MD POINT OF CARE TESTING Final Res ult [facility] CLIA # [id number] [address] [address] [place] [address] * (ABNORMAL) BLOOD GAS ARTERIAL (06/14/2025 1:40 PM CDT) [facility] PH BLOOD POC 7.50(H) 7.35 - 7.45 06/14/2025 1:40 PM CDT [facility] PCO2 POC 33(L) 35 - 45 mm Hg 06/14/2025 1:40 PM CDT [facility] PO2 POC 87 80 - 105 mm Hg 06/14/2025 1:40 PM CDT [facility] HCO3 (CALC) POC 26 22 - 26 mmol/L 06/14/2025 1:40 PM CDT [facility] HEMOGLOBIN POC 9.1(L) 12.0 - 18.0 g/dL 06/14/2025 1:40 PM CDT [facility] BASE EXCESS POC 3 -2 - 3 mmol/L 06/14/2025 1:40 PM CDT [facility] O2 SATURATION POC 99(H) 95 - 98 % 025 1:40 PM CDT [facility] SODIUM POC 134(L) 138 - 146 mmol/L 06/14/2025 1:40 PM CDT [facility] POTASSIUM POC 4.6 3.5 - 4.9 mmol/L 06/14/2025 1:40 PM CDT [facility] HEMATOCRIT POC 27(L) 38 - 51 % 06/14/2025 1:40 PM CDT [facility] PH TEMP CORRECT 7.50(H) 7.35 - 7.45 06/14/2025 1:40 PM CDT [facility] PCO2 TEMP CORRECT 33(L) 35 - 45 mm Hg 06/14/2025 1:40 PM CDT [facility] PO2 TEMP CORRECT 87 80 - 105 mm Hg 06/14/2025 1:40 PM CDT [facility] SPECIMEN SOURCE, GASES POC Arterial 06/14/2025 1:40 PM CDT [facility] CALCIUM IONIZED POC 4.7(L) 4.8 - 5.2 mg/dL 06/14/2025 1:40 PM CDT [facility] TCO2 (CALC) POC 27 23 - 27 mmol/L 06/14/2025 1:40 PM CDT [facility] FIO2 100.0 21.0 - 100.0 % 06/14/2025 1:40 PM CDT [facility] Comment:FIO2 values reported <21.0 indicate O2 flow in Liters/minute. Values >/= 21.0 indicate percent O2. P/F RATIO POC 87 06/14/2025 1:40 PM T [facility] Comment: P/F Ratio Interpretation ARDS SEVERITY PaO2/FiO2 Mild 200-300 Moderate 100-200 Severe <100 [facility] POC No Charge 06/14/2025 1:40 PM T [facility] PATIENT'S TEMPERATURE POC 37.0 degrees 06/14/2025 1:40 PM T [facility] ECMO FIO2 POC 100 % 06/14/2025 1:40 PM T [facility] Blood, arterial 06/14/2025 1 :40 PM CDT 06/14/2025 1:41 PM CDT us Karlie Hamilton MD ABG ORDERABLES Final Result [facility] CLIA # [id number] [address] [place] [address] [place] [address] * (ABNORMAL) POC GLUCOSE (06/14/2025 1:11 PM CDT) [facility] Signature GLUCOSE POC 115(H) 74 - 99 mg/dL 06/14/2025 1:11 PM CDT [facility] SPECIMEN SOURCE, GLUCOSE POC Arterial 06/14/2025 1:11 PM CDT [facility] Blood, whole 06/14/2025 1:11 PM CDT 06/14/2025 1:20 PM CDT Karlie Hamilton MD POINT OF CARE TESTING Final Res ult Performing Organization Address [facility] Co de Phone Number [facility] CLIA # [id number] [address] [id number] * (ABNORMAL) PTT (06/14/2025 1:08 PM CDT) PTT 38.6(H) 24.8 - 37.2 seconds 06/14/2025 1:35 PM CDT [facility] Blood Arterial / Unknown 1:08 PM CDT 06/14/2025 1:16 PM CDT Narrative [facility] - 06/14/2025 1:35 PM CDT Therapeutic Range: Hi-level PE/DVT heparin protocol 80.1 - 95.0 sec Lo-level PE/DVT heparin protocol 70.1 - 85.0 sec Cardiac Heparin Protocol 70.1 - 100.0 sec us Karlie Hamilton MD HEMATOLOGY ORDERABLES Final Res ult Performing Organization Address City/[facility]/ZIP Co de Phone Number [facility] CLIA # [id number] [address] [id number] * EKG 12-LEAD (06/14/2025 12:59 PM CDT) 06/14/2025 12:5 9 PM CDT Narrative INTERFACE SYSTEM - 06/14/2025 5:[address] [address] Test Date: 2025-06-14 Pat Name: ISAAC FRANKLIN Department: 12 Room: [address] [place] [address] Gender: Male Compliance Representative: [email or web address] : 1960 Requested By: Order Number: [id number] Reading MD: Ryan Urrutia Measurements Intervals Malin Rate: 81 P: 55 GA: 172 QRS: 44 QRSD: 92 T: 91 QT: 400 QTc: 464 Interpretive Statements Normal sinus rhythm Low voltage QRS ST & T wave abnormality, consider anterior ischemia Abnormal ECG Electronically Signed On 06-14-2025 17:28:13 CDT by Ryan Urrutia Procedure Note Ryan Urrutia MD - 06/14/[address] [address] Test Date: 2025-06-14 Pat [facility] Department: 12 Room: [address] [place] [address] Gender: Male Compliance Representative: [email or web address] : 1960 Requested By: Order Number: [id number] Reading MD: Ryan Urrutia Measurements Intervals Malin Rate: 81 P: 55 GA: 172 QRS: 44 QRSD: 92 T: 91 QT: 400 QTc: 464 Interpretive Statements Normal sinus rhythm Low voltage QRS ST & T wave abnormality, consider anterior ischemia Abnormal ECG Electronically Signed On 06-14-2025 17:28:13 CDT by Ryan Urrutia Prince Yordan SANTANA ECG ORDERABLES Final Result Performing Organization Address City/State/[facility] Co de Phone Number INTERFACE SYSTEM Refer to clinic/hospital department * (ABNORMAL) POC GLUCOSE (06/14/2025 12:22 PM CDT) GLUCOSE POC 114(H) 74 - 99 mg/dL 06/14/2025 12:22 PM CDT [facility] SPECIMEN SOURCE, GLUCOSE POC Arterial 06/14/2025 12:22 PM CDT [facility] Blood, whole 06/14/2025 12:2 2 PM CDT 06/14/2025 12:33 PM CDT Karlie Hamilton MD POINT OF CARE TESTING Final Res ult Performing Organization Address City/[facility]/ZIP Co de Phone Number [facility] CLIA # [id number] [address] [id number] * (ABNORMAL) POC GLUCOSE (06/14/2025 11:30 AM CDT) GLUCOSE POC 107(H) 74 - 99 mg/dL 06/14/2025 11:30 AM CDT [facility] SPECIMEN SOURCE, GLUCOSE POC Arterial 06/14/2025 11:30 AM CDT [facility] Blood, whole 06/14/2025 11:3 0 AM CDT 06/14/2025 11:47 AM CDT Karlie Hamilton MD POINT OF CARE TESTING Final Res ult Performing Organization Address [facility]/ZIP Co de Phone Number [facility] CLIA # [id number] [address] [address] * (ABNORMAL) LIPID PANEL (06/14/2025 11:23 AM CDT) CHOLESTEROL 85 <200 mg/dL 06/14/2025 12:36 PM CDT [facility] TRIGLYCERIDE 152(H) <150 mg/dL 06/14/2025 12:36 PM CDT [facility] HDL 23(L) 40 - 59 mg/dL 06/14/2025 12:36 PM CDT [facility] LDL CALCULATED 32 <100 mg/dL 06/14/2025 12:36 PM CDT [facility] NON-HDL CHOLESTEROL 62 <130 mg/dL 06/14/2025 12:36 PM CDT [facility] Blood Arterial / Unknown 11:23 AM CDT 06/14/2025 11:35 AM CDT Narrative [facility] - 06/14/2025 12:36 PM CDT TOTAL CHOLESTEROL mg/dL Desirable <200 Borderline high 200-239 High >=240 TRIGLYCERIDES mg/dL Normal <150 Borderline high 150-199 High 200-499 Very high >=500 HDL CHOLESTEROL mg/dL Low <40 Normal 40-59 Desirable >=60 NON HDL CHOLESTEROL mg/dL Optimal <130 Near Optimal 130-159 Borderline High 160-189 Very High >=190 CALCULATED LDL mg/dL LDL <70, OPTIMAL if have Atherosclerotic cardiovascular disease (ASCVD) or intermediate or higher (>7.5%) 10 year risk of ASCVD including most adults with diabetes. LDL <100, Optimal in adult patients with low (<7.5%) 10 year ASCVD risk LDL 100-160, Suboptimal LDL >160, High LDL >190, Very high LDL calculated using the Friedewald equation. ATPIII Guidelines Reference Ranges for Lipid Panels (NCEP/AMA) . us Karlie Hamilton MD CHEMISTRY ORDERABLES Final Resu lt Performing Organization Address City/[facility]/ZIP Co de Phone Number [facility] CLIA # [id number] [facility] [address] * (ABNORMAL) TROPONIN (06/14/2025 11:23 AM CDT) TROPONIN T, 5TH GEN 3,776(HH) <=15 ng/L 06/14/2025 12:10 PM CDT [facility] Blood Arterial / Unknown 11:23 AM CDT 06/14/2025 11:35 AM CDT Narrative [facility] - 06/14/2025 12:10 PM CDT Troponin elevated. us Prince Yordan SANTANA CHEMISTRY ORDERABLES Final Resul t Performing Organization Address City/[facility]/ZIP Co de Phone Number [facility] CLIA # [id number] [address] [address] [place], [place] [address] * (ABNORMAL) VANCOMYCIN LEVEL TROUGH (06/14/2025 10:13 AM CDT) [facility] VANCOMYCIN, TROUGH 8.2(L) 10.0 - 17.0 ug/mL 06/14/2025 10:56 AM CDT [facility] Blood Collection / Unknown 06/14/2025 10:13 AM CDT 06/14/2025 10:38 AM CDT Karlie Hamilton MD CHEMISTRY ORDERABLES Final Resu lt Performing Organization Address [facility]/ZIP Co de Phone Number [facility] CLIA # [id number] [address] [facility] [place], [place] [address] * (ABNORMAL) POC GLUCOSE (06/14/2025 10:04 AM CDT) [facility] GLUCOSE POC 123(H) 74 - 99 mg/dL 06/14/2025 10:04 AM CDT [facility] SPECIMEN SOURCE, GLUCOSE POC Arterial 06/14/2025 10:04 AM CDT [facility] Blood, whole 06/14/2025 10:0 4 AM CDT 06/14/2025 10:11 AM CDT Karlie Hamilton MD POINT OF CARE TESTING Final Res ult Performing Organization Address City/[facility]/ZIP Co de Phone Number [facility] CLIA # [id number] [address] [place], [place] [address] * ECHO LIMITED WO DOPPLER (06/14/2025 9:33 AM CDT) [facility] EJECTION FRACTION 20 INTERFACE SYSTEM 06/14/2025 8:38 AM CDT Narrative INTERFACE SYSTEM - 06/14/2025 9:33 AM CDT [facility] Services Echocardiography Laboratory [address] [place] [address] Limited Transthoracic Echocardiography Patient: Noemi Study ID: ECHO LIMITED TRISTA Parnell Gender: M : 1960 Age: 65 Room: [facility] Study 06/14/2025 Pt Inpatient Date: Status: Study 08:38:18 AM CSN #: [id number] Time: Ordering:Prince Yordan Mail Officer: [facility] Indications and History: ECMO check LVEF. Pericardial Effusion. Risk factors: The patient is a current tobacco user. Summary and Conclusion: - Study data: A limited echo was performed - Left ventricle: The cavity size is normal. Wall thickness is increased in a pattern of mild LVH. Global systolic function is severely reduced. The estimated ejection fraction is 20-25%. For Epic reporting: the left ventricular ejection fraction is 20%. - Right ventricle: Pacer wire or catheter noted in right ventricle. Systolic function is difficult to assess and probably reduced. Comparison: Compared to the previous study, LV systolic functionhas worsened. Procedure information: Comparison is made to the study of 06/12/2025. Study status: Routine. Procedure: A transthoracic echocardiogram was performed. Image quality was adequate. Scanning was performed from the parasternal, apical, and subcostal acoustic windows. A limited echo was performed Study components: M-mode, limited 2D, limited spectral Doppler, and color Doppler. Height: 172.7cm. Height: 68in. Weight: 105.3kg. Weight: 232.1lb. BMI: 35.3kg/m^2. BSA: 2.29m^2. Blood pressure: 114/45 Study date: 06/14/2025. Study time: 08:38 AM. Location: ICU/CCU Cardiac Anatomy: LEFT VENTRICLE: The cavity size is normal. Wall thickness is increased in a pattern of mild LVH. Global systolic function is severely reduced. The estimated ejection fraction is 20-25%. For Epic reporting: the left ventricular ejection fraction is 20%. The longitudinal strain is -5.8% (Normal range is -18 to -25). RIGHT VENTRICLE: Pacer wire or catheter noted in right ventricle. Systolic function is difficult to assess and probably reduced. PERICARDIUM: A minimal pericardial effusion and/or fat pad was identified. Measurements Left ventricle Value Left ventricle continued Value GLS, 2D -5.8 % ESV/bsa, 1-p A2C 5 ml/m^2 ESD, LAX 4.2 cm SV/bsa, 1-p A2C 9.2 ml/m^2 ESD/bsa, LAX 1.8 cm/m^2 EDV, 1-p A4C 76 ml FS, LAX 10 % ESV, 1-p A4C 55 ml FS, LAX chord 10 % EF, 1-p A4C 28 % ESD major ax, A4C 6.3 cm SV, 1-p A4C 26 ml ESD/bsa major ax, A4C 2.8 cm/m^2 EDV/bsa, 1-p A4C 33 ml/m^2 BRENT minor ax, A4C 6.3 cm ESV/bsa, 1-p A4C 24 ml/m^2 BRENT/bsa minor ax, A4C 2.8 cm/m^2 SV/bsa, 1-p A4C 12 ml/m^2 TORSTEN, A4C 24.4 cm^2 EDV, 2-p 76 ml GERA, A4C 20.2 cm^2 ESV, 2-p 61 ml FAC, A4C 17 % EF, 2-p 20 % BRENT major ax, A2C 7.2 cm SV, 2-p 15 ml BRENT/bsa major ax, A2C 3.2 cm/m^2 EDV/bsa, 2-p 33 ml/m^2 TORSTEN, A2C 24.1 cm^2 ESV/bsa, 2-p 27 ml/m^2 GERA, A2C 22.1 cm^2 SV/bsa, 2-p 9.6 ml/m^2 FAC, A2C 8 % EDV, MM Teich. 100 ml IVS, ED 1.2 cm EF, MM Teich. 21 % PW, ED 1.2 cm EDV/bsa, MM Teich. 44 ml/m^2 IVS/PW, ED 1 EF, MM on 2D Teich. 21 % EDV 100 ml ESV 79 ml Right ventricle Value EF 21 % BRENT, LAX 2.8 cm EDV/bsa 44 ml/m^2 BRENT 2.8 cm ESV/bsa 35 ml/m^2 EDV, 1-p A2C 75 ml Mitral valve Value ESV, 1-p A2C 12 ml Vena contracta width 2.8 cm EF, 1-p A2C 16 % SV, 1-p A2C 21 ml Other Value EDV/bsa, 1-p A2C 33 ml/m^2 Legend: (L) and (H) levi values outside specified reference range. [facility] are accredited with the [facility] Accreditation [facility] - Echocardiography. Prepared and Electronically Authenticated Rudy Callahan MD Confirmed 06/14/2025 09:33 Procedure Note Rudy Callahan MD - 06/14/2025 [facility] Echocardiography Laboratory [address] [place] [id number] Limited Transthoracic Echocardiography Patient: Noemi Study ID: KACI JUANWO Isaac Gender: M : 1960 Age: 65 Room: [facility] Study 06/14/2025 Pt Inpatient Date: Status: Study 08:38:18 AM [facility] #: [id number] Time: Ordering:Prince Yordan Mail Officer: [facility] Indications and History: ECMO check LVEF. Pericardial Effusion.Risk factors: The patient is a current tobacco user. Summary and Conclusion: - Study data: A limited echo was performed - Left ventricle: The cavity size is normal. Wall thickness is increasedin a pattern of mild LVH. Global systolic function is severely reduced. The estimated ejection fraction is 20-25%. For Epic reporting: the left ventricular ejection fraction is 20%. - Right ventricle: Pacer wire or catheter noted in right ventricle.Systolic function is difficult to assess and probably reduced. Comparison: Compared to the previous study, LV systolic functionhasworsened. Procedure information: Comparison is made to the study of 06/12/2025.Study status: Routine. Procedure: A transthoracic echocardiogram wasperformed. Image quality was adequate. Scanning was performed from the parasternal, apical, and subcostal acoustic windows. A limited echo wasperformed Study components: M-mode, limited 2D, limited spectral Doppler, andcolor Doppler. Height: 172.7cm. Height: 68in. Weight: 105.3kg. Weight: 232.1lb. BMI: 35.3kg/m^2. BSA: 2.29m^2. Blood pressure:114/45 Study date: 06/14/2025. Study time: 08:38 AM. Location: ICU/CCU Cardiac Anatomy: LEFT VENTRICLE: The cavity size is normal. Wall thickness is increased tomas pattern of mild LVH. Global systolic function is severely reduced. The estimated ejection fraction is 20-25%. For Epic reporting: the left ventricular ejection fraction is 20%. The longitudinal strain is -5.8%(Normal range is -18 to -25). RIGHT VENTRICLE: Pacer wire or catheter noted in right ventricle.Systolic function is difficult to assess and probably reduced. PERICARDIUM: A minimal pericardial effusion and/or fat pad wasidentified. Measurements Left ventricle Value Left ventricle continued Value GLS, 2D -5.8 % ESV/bsa, 1-p A2C 5ml/m^2 ESD, LAX 4.2 cm SV/bsa, 1-p A2C 9.2ml/m^2 ESD/bsa, LAX 1.8 cm/m^2 EDV, 1-p A4C 76 ml FS, LAX 10 % ESV, 1-p A4C 55 ml FS, LAX chord 10 % EF, 1-p A4C 28 % ESD major ax, A4C 6.3 cm SV, 1-p A4C 26 ml ESD/bsa major ax, A4C 2.8 cm/m^2 EDV/bsa, 1-p A4C 33ml/m^2 BRENT minor ax, A4C 6.3 cm ESV/bsa, 1-p A4C 24ml/m^2 BRENT/bsa minor ax, A4C 2.8 cm/m^2 SV/bsa, 1-p A4C 12ml/m^2 TORSTEN, A4C 24.4 cm^2 EDV, 2-p 76 ml GERA, A4C 20.2 cm^2 ESV, 2-p 61 ml FAC, A4C 17 % EF, 2-p 20 % BRENT major ax, A2C 7.2 cm SV, 2-p 15 ml BRENT/bsa major ax, A2C 3.2 cm/m^2 EDV/bsa, 2-p 33ml/m^2 TORSTEN, A2C 24.1 cm^2 ESV/bsa, 2-p 27ml/m^2 GERA, A2C 22.1 cm^2 SV/bsa, 2-p 9.6ml/m^2 FAC, A2C 8 % EDV, MM Teich. 100 ml IVS, ED 1.2 cm EF, MM Teich. 21 % PW, ED 1.2 cm EDV/bsa, MM Teich. 44ml/m^2 IVS/PW, ED 1 EF, MM on 2D Teich. 21 % EDV 100 ml ESV 79 ml Right ventricle Value EF 21 % BRENT, LAX 2.8 cm EDV/bsa 44 ml/m^2 BRENT 2.8 cm ESV/bsa 35 ml/m^2 EDV, 1-p A2C 75 ml Mitral valve Value ESV, 1-p A2C 12 ml Vena contracta width 2.8 cm EF, 1-p A2C 16 % SV, 1-p A2C 21 ml Other Value EDV/bsa, 1-p A2C 33 ml/m^2 Legend: (L) and (H) levi values outside specified reference range. [facility] are accredited with the[facility]societal Accreditation Commission - Echocardiography. Prepared and Electronically Authenticated Rudy Callahan MD Confirmed 06/14/2025 09:33 Prince Yordan SANTANA US ORDERABLES Final Result Performing Organization Address City/[facility]/ZIP Co de Phone Number INTERFACE SYSTEM Refer to clinic/hospital department * (ABNORMAL) POC GLUCOSE (06/14/2025 9:16 AM CDT) GLUCOSE POC 110(H) 74 - 99 mg/dL 06/14/2025 9:16 AM CDT [facility] SPECIMEN SOURCE, GLUCOSE POC Arterial 06/14/2025 9:16 AM CDT [facility] Blood, whole 06/14/2025 9:16 AM CDT 06/14/2025 9:25 AM CDT Karlie Hamilton MD POINT OF CARE TESTING Final Res ult Performing Organization Address [facility] de Phone Number [facility] CLIA # [id number] [address] [place] [address] * TYPE AND SCREEN (06/14/2025 8:44 AM CDT) ABO GROUP O 06/14/2025 10:03 AM CDT [facility] RH (D) TYPE Positive 06/14/2025 10:03 AM CDT [facility] ANTIBODY SCREEN Negative 06/14/2025 10:03 AM CDT [facility] -- [facility] Blood Arterial / Unknown 8:44 AM CDT 06/14/2025 8:50 AM CDT Karlie Hamilton MD BLOOD BANK ORDERABLES Edited Re sult - Final [facility] CLIA#[id number] [address] [place] [address], * (ABNORMAL) POC GLUCOSE (06/14/2025 8:07 AM CDT) [facility] GLUCOSE POC 106(H) 74 - 99 mg/dL 06/14/2025 8:07 AM CDT [facility] SPECIMEN SOURCE, GLUCOSE POC Arterial 06/14/2025 8:07 AM CDT [facility] Blood, whole 06/14/2025 8:07 AM CDT 06/14/2025 8:19 AM CDT Karlie Hamilton MD POINT OF CARE TESTING Final Res ult Performing Organization Address [facility] Co de Phone Number [facility] CLIA # [id number] [address] [address] * (ABNORMAL) TROPONIN (06/14/2025 7:30 AM CDT) [facility] TROPONIN T, 5TH GEN 3,706(HH) <=15 ng/L 06/14/2025 8:26 AM CDT [facility] Blood Arterial / Unknown 7:30 AM CDT 06/14/2025 7:36 AM CDT Narrative [facility] - 06/14/2025 8:26 AM CDT Troponin elevated. Prince Yordan SANTANA CHEMISTRY ORDERABLES Final Resul t Performing Organization Address [facility]/ZIP Co de Phone Number [facility] CLIA # [id number] [address] [address] * POC LACTIC ACID (06/14/2025 7:20 AM CDT) LACTIC ACID POC 1.4 <=2.0 mmol/L 06/14/2025 7:20 AM T [facility] SPECIMEN SOURCE, GASES POC Arterial 06/14/2025 7:20 AM T [facility] PUNC SITE POC No Charge 06/14/2025 7:20 AM T [facility] Blood 06/14/2025 7:20 AM CDT 06/14/2025 7:22 AM CDT Narrative [facility] - 06/14/2025 7:20 AM CDT References ranges displayed are for Arterial samples. us Zenaida Michel MD POINT OF CARE TESTING Final Resu lt [facility] CLIA # [id number] [address] [place] [address] * (ABNORMAL) BLOOD GAS ARTERIAL (06/14/2025 7:20 AM CDT) PH BLOOD POC 7.47(H) 7.35 - 7.45 06/14/2025 7:20 AM T [facility] PCO2 POC 37 35 - 45 mm Hg 06/14/2025 7:20 AM [facility] PO2 POC 69(L) 80 - 105 mm Hg 06/14/2025 7:20 AM T [facility] HCO3 (CALC) POC 27(H) 22 - 26 mmol/L 06/14/2025 7:20 AM [facility] HEMOGLOBIN POC 9.6(L) 12.0 - 18.0 g/dL 06/14/2025 7:20 AM T [facility] BASE EXCESS POC 3 -2 - 3 mmol/L 06/14/2025 7:20 AM T [facility] O2 SATURATION POC 96 95 - 98 % 7:20 AM T [facility] SODIUM POC 133(L) 138 - 146 mmol/L 06/14/2025 7:20 AM [facility] POTASSIUM POC 5.2(H) 3.5 - 4.9 mmol/L 06/14/2025 7:20 AM [facility] HEMATOCRIT POC 29(L) 38 - 51 % 06/14/2025 7:20 AM [facility] PH TEMP CORRECT 7.47(H) 7.35 - 7.45 06/14/2025 7:20 AM [facility] PCO2 TEMP CORRECT 37 35 - 45 mm Hg 06/14/2025 7:20 AM [facility] PO2 TEMP CORRECT 69(L) 80 - 105 mm Hg 06/14/2025 7:20 AM [facility] SPECIMEN SOURCE, GASES POC Arterial 06/14/2025 7:20 AM [facility] CALCIUM IONIZED POC 4.9 4.8 - 5.2 mg/dL 06/14/2025 7:20 AM [facility] TCO2 (CALC) POC 28(H) 23 - 27 mmol/L 06/14/2025 7:20 AM [facility] FIO2 60.0 21.0 - 100.0 % 06/14/2025 7:20 AM [facility] Comment:FIO2 values reported <21.0 indicate O2 flow in Liters/minute. Values >/= 21.0 indicate percent O2. P/F RATIO POC 115 06/14/2025 7:20 AM [facility] Comment: P/F Ratio Interpretation ARDS SEVERITY PaO2/FiO2 Mild 200-300 Moderate 100-200 Severe <100 PEEP POC 10 06/14/2025 7:20 AM [facility] PUNC SITE POC No Charge 06/14/2025 7:20 AM [facility] PATIENT'S TEMPERATURE POC 37.0 degrees 06/14/2025 7:20 AM [facility] SWEEP POC 3 L/min 06/14/2025 7:20 AM [facility] ECMO FIO2 POC 100 % 06/14/2025 7:20 AM [facility] Blood, arterial 06/14/2025 7 :20 AM CDT 06/14/2025 7:22 AM CDT us Zenaida Michel MD ABG ORDERABLES Final Result Performing Organization Address [facility] de Phone Number [facility] CLIA # [id number] [address] [address] * (ABNORMAL) POC GLUCOSE (06/14/2025 7:18 AM CDT) GLUCOSE POC 103(H) 74 - 99 mg/dL 06/14/2025 7:18 AM CDT [facility] SPECIMEN SOURCE, GLUCOSE POC Arterial 06/14/2025 7:18 AM CDT [facility] Blood, whole 06/14/2025 7:18 AM CDT 06/14/2025 7:26 AM CDT us Karlie Hamilton MD POINT OF CARE TESTING Final Res ult Performing Organization Address [facility] de Phone Number [facility] CLIA # [id number] [address] [address] * POC GLUCOSE (06/14/2025 6:11 AM CDT) GLUCOSE POC 99 74 - 99 mg/dL 06/14/2025 6:11 AM CDT [facility] SPECIMEN SOURCE, GLUCOSE POC Arterial 06/14/2025 6:11 AM CDT [facility] Blood, whole 06/14/2025 6:11 AM CDT 06/14/2025 6:19 AM CDT us Zenaida Michel MD POINT OF CARE TESTING Final Resu lt [facility] CLIA # [id number] [address] [address] [place] [address] * POC GLUCOSE (06/14/2025 5:12 AM CDT) GLUCOSE POC 92 74 - 99 mg/dL 06/14/2025 5:12 AM CDT [facility] SPECIMEN SOURCE, GLUCOSE POC Arterial 06/14/2025 5:12 AM CDT [facility] Blood, whole 06/14/2025 5:12 AM CDT 06/14/2025 5:19 AM CDT Zenaida Michel MD POINT OF CARE TESTING Final Resu lt Performing Organization Address City/State/[facility] Co de Phone Number [facility] CLIA # [id number] [address] [address] [place] [address] * XR CHEST PA OR AP 1 VW (06/14/2025 4:33 AM CDT) Anatomical Region Laterality Modality Chest Computed Radiogr aphy 06/14/2025 4:33 AM CDT Impressions 06/14/2025 7:29 AM CDT Impression: Lines and tubes are unchanged. Cardiomediastinal silhouette is stable with pulmonary vascular congestion. Mild airspace disease in the lower lobes is stable and likely atelectasis with a stable small left pleural effusion. No pneumothorax. Narrative 06/14/2025 7:29 AM CDT Exam: XR CHEST PA OR AP 1 VW Date/Time of Exam: 06/14/2025 4:33 AM Reason For Exam: Other - Please see comments. Diagnosis: ST elevation myocardial infarction (STEMI), unspecified artery; Cardiac arrest with ventricular fibrillation (CMS/HCC); Cardiac arrest with ventricular fibrillation (CMS/HCC); CHB (complete heart block); Laboratory test. Comparison: 06/13/2025. Procedure Note Gallito Ballesteros MD - 06/14/2025 Exam: XR CHEST PA OR AP 1 VW Date/Time of Exam: 06/14/2025 4:33 AM Reason For Exam: Other - Please see comments. Diagnosis: ST elevation myocardial infarction (STEMI), unspecified artery; Cardiac arrest with ventricular fibrillation (CMS/HCC); Cardiac arrest with ventricular fibrillation (CMS/HCC); CHB (complete heart block); Laboratory test. Comparison: 06/13/2025. Impression: Lines and tubes are unchanged. Cardiomediastinal silhouette is stable with pulmonary vascular congestion. Mild airspace disease in the lower lobes is stable and likely atelectasis with a stable small left pleural effusion. No pneumothorax. us Zenaida Michel MD DIAGNOSTIC IMAGING ORDERABLES Fi nal Result * POC GLUCOSE (06/14/2025 4:04 AM CDT) GLUCOSE POC 91 74 - 99 mg/dL 06/14/2025 4:04 AM CDT [facility] SPECIMEN SOURCE, GLUCOSE POC Arterial 06/14/2025 4:04 AM CDT [facility] Blood, whole 06/14/2025 4:04 AM CDT 06/14/2025 4:12 AM CDT us Zenaida Michel MD POINT OF CARE TESTING Final Resu lt [facility] CLIA # [id number] [address] [facility] [place] [id number] * EKG 12-LEAD (06/14/2025 3:36 AM CDT) 06/14/2025 3:36 AM CDT Narrative INTERFACE SYSTEM - 06/14/2025 6:48 AM CDT [address] [address] Test Date: 2025-06-14 Pat Name: ISAAC NOEMI Department: 12 Room: 3315 01 Gender: Male Compliance Representative: [id number] : 1960 Requested By: Order Number: [id number] Reading : Smitha Vora Measurements Intervals Malin Rate: 81 P: 70 GA: 174 QRS: 49 QRSD: 122 T: 67 QT: 416 QTc: 483 Interpretive Statements Critical Test Result: STEMI Normal sinus rhythm Right bundle branch block ST elevation, consider inferior injury or acute infarct ACUTE NC / STEMI Consider right ventricular involvement in acute inferior infarct Abnormal ECG Tech comment: Critical result reported to Ramu Workman RN @03:36 Electronically Signed On 06-14-2025 6:48:35 CDT by Smitha Vora Procedure Note Provider, Historical - 06/14/[address] [address] Test Date: 2025-06-14 Pat Name: ISAAC FRANKLIN Department: 12 Room: [address] [place] [address] Gender: Male Compliance Representative: [id number] : 1960 Requested By: Order Number: [id number] Reading MD: Smitha Vora Measurements Intervals Malin Rate: 81 P: 70 GA: 174 QRS: 49 QRSD: 122 T: 67 QT: 416 QTc: 483 Interpretive Statements Critical Test Result: STEMI Normal sinus rhythm Right bundle branch block ST elevation, consider inferior injury or acute infarct ACUTE NC / STEMI Consider right ventricular involvement in acute inferior infarct Abnormal ECG Tech comment: Critical result reported to Ramu Workman RN @03:36 Electronically Signed On 06-14-2025 6:48:35 CDT by Smitha Vora us Prince Yordan SANTANA ECG ORDERABLES Final Result INTERFACE SYSTEM Refer to clinic/hospital department * (ABNORMAL) HEMOGLOBIN A1C (06/14/2025 3:08 AM CDT) HEMOGLOBIN A1C 6.3(H) <=5.6 % 06/16/2025 11:21 AM CDT [facility] EST. AVG GLUCOSE, A1C 134 mg/dL 06/16/2025 11:21 AM CDT [facility] Blood Venipuncture / Unknown 06/14/2025 3:08 AM CDT 06/14/2025 3:14 AM CDT Narrative [facility] - 06/16/2025 11:21 AM CDT HGB A1C INTERPRETATION NORMAL: <5.7% PRE-DIABETES: 5.7 - 6.4% DIABETES: 6.5% OR GREATER Karlie Hamilton MD CHEMISTRY ORDERABLES Final Resu lt Performing Organization Address [facility] Co de Phone Number [facility] CLIA # [id number] [address] [address] [place] [address] * HAPTOGLOBIN (06/14/2025 3:08 AM CDT) HAPTOGLOBIN 123 30 - 200 mg/dL 06/14/2025 4:00 AM CDT [facility] Blood Venipuncture / Unknown 06/14/2025 3:08 AM CDT 06/14/2025 3:20 AM CDT Zenaida Michel MD CHEMISTRY ORDERABLES Final Resul t Performing Organization Address [facility] Co de Phone Number [facility] CLIA # [id number] [address] [address] * (ABNORMAL) LACTATE DEHYDROGENASE (06/14/2025 3:08 AM CDT) LD (LACTATE DEHYDROGENASE) 811(H) 135 - 225 U/L 06/14/2025 4:00 AM CDT [facility] Blood Venipuncture / Unknown 06/14/2025 3:08 AM CDT 06/14/2025 3:20 AM CDT Zenaida Michel MD CHEMISTRY ORDERABLES Final Resul t Performing Organization Address [facility] Co de Phone Number [facility] CLIA # [id number] [address] [address] * PHOSPHORUS (06/14/2025 3:08 AM CDT) PHOSPHORUS 3.0 2.5 - 4.5 mg/dL 06/14/2025 4:00 AM CDT [facility] Blood Venipuncture / Unknown 06/14/2025 3:08 AM CDT 06/14/2025 3:20 AM CDT Zenaida Michel MD CHEMISTRY ORDERABLES Final Resul t Performing Organization Address [facility] Co de Phone Number [facility] CLIA # [id number] [address] [address] * MAGNESIUM LEVEL (06/14/2025 3:08 AM CDT) MAGNESIUM 2.4 1.6 - 2.4 mg/dL 06/14/2025 4:00 AM CDT [facility] Blood Venipuncture / Unknown 06/14/2025 3:08 AM CDT 06/14/2025 3:20 AM CDT Zenaida Michel MD CHEMISTRY ORDERABLES Final Resul t Performing Organization Address [facility] Co de Phone Number [facility] CLIA # [id number] [address] [address] * (ABNORMAL) COMPREHENSIVE METABOLIC PANEL (06/14/2025 3:08 AM CDT) SODIUM 138 136 - 145 mmol/L 06/14/2025 4:00 AM [facility] POTASSIUM 5.0 3.5 - 5.1 mmol/L 06/14/2025 4:00 AM [facility] CHLORIDE 104 98 - 107 mmol/L 06/14/2025 4:00 AM [facility] CO2 25 22 - 29 mmol/L 06/14/2025 4:00 AM [facility] CALCIUM 8.3(L) 8.8 - 10.2 mg/dL 06/14/2025 4:00 AM [facility] BUN 27(H) 8 - 23 mg/dL 06/14/2025 4:00 AM [facility] CREATININE 0.91 0.67 - 1.17 mg/dL 06/14/2025 4:00 AM [facility] GLUCOSE 101(H) 74 - 99 mg/dL 06/14/2025 4:00 AM [facility] TOTAL PROTEIN 5.4(L) 6.4 - 8.3 g/dL 06/14/2025 4:00 AM [facility] ALBUMIN 2.8(L) 3.5 - 5.2 g/dL 06/14/2025 4:00 AM [facility] BILIRUBIN TOTAL 0.6 0.0 - 1.0 mg/dL 06/14/2025 4:00 AM [facility] ALKALINE PHOSPHATASE 64 40 - 129 U/L 06/14/2025 4:00 AM [facility] AST 178(H) 10 - 50 U/L 06/14/2025 4:00 AM [facility] ALT 103(H) <=50 U/L 06/14/2025 4:00 AM [facility] GFR >60 >=60 mL/min/1.7 3 sq meter 06/14/2025 4:00 AM [facility] Comment:eGFR calculated with 2020 CKD-EPI equation. Vegetarian diet, extremely high or low muscle mass, and may affect results. Cystatin C with Glomerular Filtration Rate is a suitable alternative for these patients. ANION GAP 9 9 - 20 mmol/L 06/14/2025 4:00 AM CDT [facility] Blood Venipuncture / Unknown 06/14/2025 3:08 AM CDT 06/14/2025 3:20 AM CDT us Zenaida Michel MD CHEMISTRY ORDERABLES Final Resul t [facility] CLIA # [id number] [address] [address] [place] [address] * (ABNORMAL) CBC WITH DIFFERENTIAL (06/14/2025 3:08 AM CDT) Pathologist [facility] WBC 11.6(H) 4.8 - 10.8 K/uL 06/14/2025 3:25 AM CDT [facility] RBC 2.79(L) 4.60 - 6.20 M/uL 06/14/2025 3:25 AM CDT [facility] HEMOGLOBIN 8.8(L) 14.0 - 18.0 g/dL 06/14/2025 3:25 AM CDT [facility] HEMATOCRIT 26.5(L) 41.0 - 53.0 % 06/14/2025 3:25 AM CDT [facility] MCV 95.0 84.0 - 103.0 fL 06/14/2025 3:25 AM CDT [facility] MCH 31.5 27.0 - 34.0 pg 06/14/2025 3:25 AM CDT [facility] MCHC 33.2 30.0 - 35.0 g/dL 06/14/2025 3:25 AM CDT [facility] PLATELETS 124(L) 140 - 440 K/uL 06/14/2025 3:25 AM CDT [facility] MPV 9.6 8.9 - 12.8 fL 06/14/2025 3:25 AM CDT [facility] RDW 14.5 11.0 - 14.5 % 06/14/2025 3:25 AM CDT [facility] RDW-STDEV 50.2 37.0 - 54.0 fL 06/14/2025 3:25 AM CDT [facility] NEUTROPHILS 79(H) 42 - 75 % 06/14/2025 3:25 AM CDT [facility] LYMPHOCYTES 12(L) 24 - 44 % 06/14/2025 3:25 AM T [facility] MONOCYTES 8 2 - 10 % 06/14/2025 3:25 AM CDT [facility] EOSINOPHILS 1 0 - 7 % 06/14/2025 3:25 AM T [facility] BASOPHILS 1 0 - 1 % 06/14/2025 3:25 AM [facility] IMMATURE GRANULOCYTES 1 0 - 2 % 06/14/2025 3:25 AM [facility] NEUTROPHIL ABSOLUTE 9.11(H) 2.00 - 8.00 K/uL 06/14/2025 3:25 AM [facility] LYMPHOCYTE ABSOLUTE 1.36 1.20 - 4.00 K/uL 06/14/2025 3:25 AM [facility] MONOCYTE ABSOLUTE 0.91(H) 0.10 - 0.60 K/uL 06/14/2025 3:25 AM [facility] EOSINOPHIL ABSOLUTE 0.09 0.00 - 0.70 K/uL 06/14/2025 3:25 AM [facility] BASOPHILS ABSOLUTE 0.06 0.00 - 0.20 K/uL 06/14/2025 3:25 AM [facility] IMMATURE GRANULOCYTES ABSOLUTE 0.08 0.00 - 0.10 K/uL 06/14/2025 3:25 AM [facility] SMEAR REVIEWED: NN - No Action Needed 06/14/2025 3:25 AM [facility] Blood Venipuncture / Unknown 06/14/2025 3:08 AM CDT 06/14/2025 3:14 AM CDT Zenaida Michel MD HEMATOLOGY ORDERABLES Final Resu lt Performing Organization Address [facility] Co de Phone Number [facility] CLIA # [id number] [address] [address] * POC GLUCOSE (06/14/2025 3:07 AM CDT) GLUCOSE POC 95 74 - 99 mg/dL 06/14/2025 3:07 AM CDT [facility] SPECIMEN SOURCE, GLUCOSE POC Arterial 06/14/2025 3:07 AM CDT [facility] Blood, whole 06/14/2025 3:07 AM CDT 06/14/2025 3:15 AM CDT Zenaida Michel MD POINT OF CARE TESTING Final Resu lt Performing Organization Address [facility] de Phone Number [facility] CLIA # [id number] [address] [address] * POC LACTIC ACID (06/14/2025 3:05 AM CDT) LACTIC ACID POC 1.1 <=2.0 mmol/L 06/14/2025 3:05 AM CDT [facility] SPECIMEN SOURCE, GASES POC Arterial 06/14/2025 3:05 AM CDT [facility] PUNC SITE POC No Charge 06/14/2025 3:05 AM CDT [facility] Blood 06/14/2025 3:05 AM CDT 06/14/2025 3:07 AM CDT Narrative [facility] - 06/14/2025 3:05 AM CDT References ranges displayed are for Arterial samples. Zenaida Michel MD POINT OF CARE TESTING Final Resu lt Performing Organization Address [facility]/ZIP Co de Phone Number [facility] CLIA # [id number] [address] [place] [address] [place] [address] * (ABNORMAL) BLOOD GAS ARTERIAL (06/14/2025 3:05 AM [facility]) [facility] PH BLOOD POC 7.47(H) 7.35 - 7.45 06/14/2025 3:05 AM [facility] PCO2 POC 39 35 - 45 mm Hg 06/14/2025 3:05 AM [facility] PO2 POC 68(L) 80 - 105 mm Hg 06/14/2025 3:05 AM [facility] HCO3 (CALC) POC 28(H) 22 - 26 mmol/L 06/14/2025 3:05 AM [facility] HEMOGLOBIN POC 9.4(L) 12.0 - 18.0 g/dL 06/14/2025 3:05 AM [facility] BASE EXCESS POC 5(H) -2 - 3 mmol/L 06/14/2025 3:05 AM [facility] O2 SATURATION POC 96 95 - 98 % 025 3:05 AM [facility] SODIUM POC 134(L) 138 - 146 mmol/L 06/14/2025 3:05 AM [facility] POTASSIUM POC 5.1(H) 3.5 - 4.9 mmol/L 06/14/2025 3:05 AM [facility] HEMATOCRIT POC 28(L) 38 - 51 % 06/14/2025 3:05 AM [facility] PH TEMP CORRECT 7.47(H) 7.35 - 7.45 06/14/2025 3:05 AM [facility] PCO2 TEMP CORRECT 39 35 - 45 mm Hg 06/14/2025 3:05 AM [facility] PO2 TEMP CORRECT 68(L) 80 - 105 mm Hg 06/14/2025 3:05 AM [facility] SPECIMEN SOURCE, GASES POC Arterial 06/14/2025 3:05 AM T [facility] CALCIUM IONIZED POC 4.8 4.8 - 5.2 mg/dL 06/14/2025 3:05 AM T [facility] TCO2 (CALC) POC 30(H) 23 - 27 mmol/L 06/14/2025 3:05 AM T [facility] FIO2 60.0 21.0 - 100.0 % 06/14/2025 3:05 AM T [facility] Comment:FIO2 values reported <21.0 indicate O2 flow in Liters/minute. Values >/= 21.0 indicate percent O2. P/F RATIO POC 113 06/14/2025 3:05 AM [facility] Comment: P/F Ratio Interpretation ARDS SEVERITY PaO2/FiO2 Mild 200-300 Moderate 100-200 Severe <100 PEEP POC 10 06/14/2025 3:05 AM [facility] PUNC SITE POC No Charge 06/14/2025 3:05 AM [facility] PATIENT'S TEMPERATURE POC 37.0 degrees 06/14/2025 3:05 AM [facility] SWEEP POC 3 L/min 06/14/2025 3:05 AM [facility] ECMO FIO2 POC 100 % 06/14/2025 3:05 AM [facility] ECMO FLOW POC 5 L/min 06/14/2025 3:05 AM [facility] Blood, arterial 06/14/2025 3 :05 AM CDT 06/14/2025 3:07 AM CDT us Zenaida Michel MD ABG ORDERABLES Final Result [facility] CLIA # [id number] [address] [address] [place] [address] * (ABNORMAL) POC GLUCOSE (06/14/2025 2:11 AM CDT) [facility] GLUCOSE POC 101(H) 74 - 99 mg/dL 06/14/2025 2:11 AM CDT [facility] SPECIMEN SOURCE, GLUCOSE POC Arterial 06/14/2025 2:11 AM CDT [facility] Blood, whole 06/14/2025 2:11 AM CDT 06/14/2025 2:26 AM CDT Zenaida Michel MD POINT OF CARE TESTING Final Resu lt Performing Organization Address [facility]/ZIP Co de Phone Number [facility] CLIA # [id number] [address] [address] [place], [place] [address] * (ABNORMAL) POC GLUCOSE (06/14/2025 1:25 AM CDT) GLUCOSE POC 115(H) 74 - 99 mg/dL 06/14/2025 1:25 AM CDT [facility] SPECIMEN SOURCE, GLUCOSE POC Arterial 06/14/2025 1:25 AM CDT [facility] Blood, whole 06/14/2025 1:25 AM CDT 06/14/2025 1:42 AM CDT Zenaida Michel MD POINT OF CARE TESTING Final Resu lt Performing Organization Address [facility]/ZIP Co de Phone Number [facility] CLIA # [id number] [address] [address] [place], [place] [address] * (ABNORMAL) POC GLUCOSE (06/14/2025 12:04 AM CDT) GLUCOSE POC 121(H) 74 - 99 mg/dL 06/14/2025 12:04 AM CDT [facility] SPECIMEN SOURCE, GLUCOSE POC Arterial 06/14/2025 12:04 AM CDT [facility] Blood, whole 06/14/2025 12:0 4 AM CDT 06/14/2025 12:12 AM CDT us Zeanida Michel MD POINT OF CARE TESTING Final Resu lt [facility] CLIA # [id number] [address] [address] [place] [address] * (ABNORMAL) CBC WITH DIFFERENTIAL (06/13/2025 11:34 PM CDT) [facility] WBC 13.2(H) 4.8 - 10.8 K/uL 06/13/2025 11:45 PM CDT [facility] RBC 2.75(L) 4.60 - 6.20 M/uL 06/13/2025 11:45 PM CDT [facility] HEMOGLOBIN 8.7(L) 14.0 - 18.0 g/dL 06/13/2025 11:45 PM CDT [facility] HEMATOCRIT 26.0(L) 41.0 - 53.0 % 06/13/2025 11:45 PM CDT [facility] MCV 94.5 84.0 - 103.0 fL 06/13/2025 11:45 PM CDT [facility] MCH 31.6 27.0 - 34.0 pg 06/13/2025 11:45 PM CDT [facility] MCHC 33.5 30.0 - 35.0 g/dL 06/13/2025 11:45 PM CDT [facility] PLATELETS 118(L) 140 - 440 K/uL 06/13/2025 11:45 PM CDT [facility] MPV 9.5 8.9 - 12.8 fL 06/13/2025 11:45 PM CDT [facility] RDW 14.6(H) 11.0 - 14.5 % 06/13/2025 11:45 PM CDT [facility] RDW-STDEV 50.3 37.0 - 54.0 fL 06/13/2025 11:45 PM CDT [facility] NEUTROPHILS 79(H) 42 - 75 % 06/13/2025 11:45 PM CDT [facility] LYMPHOCYTES 12(L) 24 - 44 % 06/13/2025 11:45 PM CDT [facility] MONOCYTES 7 2 - 10 % 06/13/2025 11:45 PM CDT [facility] EOSINOPHILS 1 0 - 7 % 06/13/2025 11:45 PM CDT [facility] BASOPHILS 1 0 - 1 % 06/13/2025 11:45 PM CDT [facility] IMMATURE GRANULOCYTES 1 0 - 2 % 06/13/2025 11:45 PM CDT [facility] NEUTROPHIL ABSOLUTE 10.33(H) 2.00 - 8.00 K/uL 06/13/2025 11:45 PM CDT [facility] LYMPHOCYTE ABSOLUTE 1.59 1.20 - 4.00 K/uL 06/13/2025 11:45 PM CDT [facility] MONOCYTE ABSOLUTE 0.98(H) 0.10 - 0.60 K/uL 06/13/2025 11:45 PM CDT [facility] EOSINOPHIL ABSOLUTE 0.10 0.00 - 0.70 K/uL 06/13/2025 11:45 PM CDT [facility] BASOPHILS ABSOLUTE 0.07 0.00 - 0.20 K/uL 06/13/2025 11:45 PM CDT [facility] IMMATURE GRANULOCYTES ABSOLUTE 0.09 0.00 - 0.10 K/uL 06/13/2025 11:45 PM T [facility] SMEAR REVIEWED: NA - Not Applicable 06/13/2025 11:45 PM T [facility] Blood Venipuncture / Unknown 06/13/2025 11:34 PM CDT 06/13/2025 11:40 PM CDT us Zenaida Michel MD HEMATOLOGY ORDERABLES Final Resu lt [facility] CLIA # [id number] [address] [place] [address] * (ABNORMAL) TROPONIN (06/13/2025 11:34 PM CDT) [facility] TROPONIN T, 5TH GEN 4,092(HH) <=15 ng/L 06/14/2025 12:22 AM CDT [facility] Blood Venipuncture / Unknown 06/13/2025 11:34 PM CDT 06/13/2025 11:46 PM CDT Narrative [facility] - 06/14/2025 12:22 AM CDT Troponin elevated. Prince Yordan SANTANA CHEMISTRY ORDERABLES Final Resul t Performing Organization Address City/[facility]/ZIP Co de Phone Number [facility] CLIA # [id number] [address] [facility] [place] [address] * POC LACTIC ACID (06/13/2025 11:07 PM CDT) [facility] LACTIC ACID POC 1.2 <=2.0 mmol/L 06/13/2025 11:07 PM CDT [facility] SPECIMEN SOURCE, GASES POC Arterial 06/13/2025 11:07 PM CDT [facility] SITE POC No Charge 06/13/2025 11:07 PM CDT [facility] Blood 06/13/2025 11:0 7 PM CDT 06/13/2025 11:09 PM CDT Narrative [facility] - 06/13/2025 11:07 PM CDT References ranges displayed are for Arterial samples. Zenaida Michel MD POINT OF CARE TESTING Final Resu lt Performing Organization Address City/[facility]/ZIP Co de Phone Number [facility] CLIA # [id number] [address] [place] [address] * (ABNORMAL) BLOOD GAS ARTERIAL (06/13/2025 11:07 PM [facility]) [facility] Signature PH BLOOD POC 7.48(H) 7.35 - 7.45 06/13/2025 11:07 PM [facility] PCO2 POC 40 35 - 45 mm Hg 06/13/2025 11:07 PM [facility] PO2 POC 61(L) 80 - 105 mm Hg 06/13/2025 11:07 PM [facility] HCO3 (CALC) POC 30(H) 22 - 26 mmol/L 06/13/2025 11:07 PM [facility] HEMOGLOBIN POC 9.5(L) 12.0 - 18.0 g/dL 06/13/2025 11:07 PM [facility] BASE EXCESS POC 6(H) -2 - 3 mmol/L 06/13/2025 11:07 PM [facility] O2 SATURATION POC 94(L) 95 - 98 % 025 11:07 PM [facility] SODIUM POC 133(L) 138 - 146 mmol/L 06/13/2025 11:07 PM [facility] POTASSIUM POC 5.2(H) 3.5 - 4.9 mmol/L 06/13/2025 11:07 PM [facility] HEMATOCRIT POC 29(L) 38 - 51 % 06/13/2025 11:07 PM [facility] PH TEMP CORRECT 7.48(H) 7.35 - 7.45 06/13/2025 11:07 PM [facility] PCO2 TEMP CORRECT 40 35 - 45 mm Hg 06/13/2025 11:07 PM [facility] PO2 TEMP CORRECT 61(L) 80 - 105 mm Hg 06/13/2025 11:07 PM [facility] SPECIMEN SOURCE, GASES POC Arterial 06/13/2025 11:07 PM [facility] CALCIUM IONIZED POC 4.8 4.8 - 5.2 mg/dL 06/13/2025 11:07 PM T [facility] TCO2 (CALC) POC 31(H) 23 - 27 mmol/L 06/13/2025 11:07 PM T [facility] FIO2 50.0 21.0 - 100.0 % 06/13/2025 11:07 PM T [facility] Comment:FIO2 values reported <21.0 indicate O2 flow in Liters/minute. Values >/= 21.0 indicate percent O2. P/F RATIO POC 122 06/13/2025 11:07 PM T [facility] Comment: P/F Ratio Interpretation ARDS SEVERITY PaO2/FiO2 Mild 200-300 Moderate 100-200 Severe <100 PEEP POC 10 06/13/2025 11:07 PM [facility] PUNC SITE POC No Charge 06/13/2025 11:07 PM [facility] PATIENT'S TEMPERATURE POC 37.0 degrees 06/13/2025 11:07 PM T [facility] SWEEP POC 3 L/min 06/13/2025 11:07 PM [facility] ECMO FIO2 POC 100 % 06/13/2025 11:07 PM [facility] ECMO FLOW POC 5 L/min 06/13/2025 11:07 PM [facility] Blood, arterial 06/13/2025 1 1:07 PM CDT 06/13/2025 11:09 PM CDT us Zenaida Michel MD ABG ORDERABLES Final Result [facility] CLIA # [id number] [address] [place] [address] [place] [address] * (ABNORMAL) POC GLUCOSE (06/13/2025 11:05 PM CDT) GLUCOSE POC 140(H) 74 - 99 mg/dL 06/13/2025 11:05 PM CDT [facility] SPECIMEN SOURCE, GLUCOSE POC Arterial 06/13/2025 11:05 PM CDT [facility] Blood, whole 06/13/2025 11:0 5 PM CDT 06/13/2025 11:15 PM CDT Zenaida Michel MD POINT OF CARE TESTING Final Resu lt Performing Organization Address [facility] Co de Phone Number [facility] CLIA # [id number] [address] [address] * (ABNORMAL) POC GLUCOSE (06/13/2025 10:06 PM CDT) GLUCOSE POC 152(H) 74 - 99 mg/dL 06/13/2025 10:06 PM CDT [facility] SPECIMEN SOURCE, GLUCOSE POC Arterial 06/13/2025 10:06 PM CDT [facility] Blood, whole 06/13/2025 10:0 6 PM CDT 06/13/2025 10:16 PM CDT Zenaida Michel MD POINT OF CARE TESTING Final Resu lt Performing Organization Address [facility] Co de Phone Number [facility] CLIA # [id number] [address] [address] * (ABNORMAL) POC GLUCOSE (06/13/2025 9:17 PM CDT) GLUCOSE POC 163(H) 74 - 99 mg/dL 06/13/2025 9:17 PM CDT [facility] SPECIMEN SOURCE, GLUCOSE POC Arterial 06/13/2025 9:17 PM CDT [facility] Blood, whole 06/13/2025 9:17 PM CDT 06/13/2025 9:29 PM CDT Zenaida Michel MD POINT OF CARE TESTING Final Resu lt Performing Organization Address [facility] Co de Phone Number [facility] CLIA # [id number] [address] [facility] [place] [address] * (ABNORMAL) POC GLUCOSE (06/13/2025 8:10 PM CDT) GLUCOSE POC 139(H) 74 - 99 mg/dL 06/13/2025 8:10 PM CDT [facility] SPECIMEN SOURCE, GLUCOSE POC Arterial 06/13/2025 8:10 PM CDT [facility] Blood, whole 06/13/2025 8:10 PM CDT 06/13/2025 8:21 PM CDT Zenaida Michel MD POINT OF CARE TESTING Final Resu lt Performing Organization Address [facility] Co de Phone Number [facility] CLIA # [id number] [address] [address] * (ABNORMAL) PTT (06/13/2025 8:08 PM CDT) PTT 40.7(H) 24.8 - 37.2 seconds 06/13/2025 8:25 PM CDT [facility] Blood Venipuncture / Unknown 06/13/2025 8:08 PM CDT 06/13/2025 8:13 PM CDT Narrative [facility] - 06/13/2025 8:25 PM CDT Therapeutic Range: Hi-level PE/DVT heparin protocol 80.1 - 95.0 sec Lo-level PE/DVT heparin protocol 70.1 - 85.0 sec Cardiac Heparin Protocol 70.1 - 100.0 sec Zenaida Michel MD HEMATOLOGY ORDERABLES Final Resu lt Performing Organization Address City/[facility]/ZIP Co de Phone Number [facility] CLIA # [id number] [address] [address] * (ABNORMAL) POC GLUCOSE (06/13/2025 7:22 PM CDT) GLUCOSE POC 140(H) 74 - 99 mg/dL 06/13/2025 7:22 PM CDT [facility] SPECIMEN SOURCE, GLUCOSE POC Arterial 06/13/2025 7:22 PM CDT [facility] Blood, whole 06/13/2025 7:22 PM CDT 06/13/2025 7:42 PM CDT Zenaida Michel MD POINT OF CARE TESTING Final Resu lt Performing Organization Address [facility] Co de Phone Number [facility] CLIA # [id number] [address] [address] * POC LACTIC ACID (06/13/2025 7:20 PM CDT) LACTIC ACID POC 1.5 <=2.0 mmol/L 06/13/2025 7:20 PM CDT [facility] SPECIMEN SOURCE, GASES POC Arterial 06/13/2025 7:20 PM CDT [facility] PUN SITE POC No Charge 06/13/2025 7:20 PM CDT [facility] Blood 06/13/2025 7:20 PM CDT 06/13/2025 7:21 PM CDT Narrative [facility] - 06/13/2025 7:20 PM CDT References ranges displayed are for Arterial samples. Zenaida Michel MD POINT OF CARE TESTING Final Resu lt Performing Organization Address [facility]/ZIP Co de Phone Number [facility] CLIA # [id number] [address] [place] [address] [place] [address] * (ABNORMAL) BLOOD GAS ARTERIAL (06/13/2025 7:20 PM CDT) [facility] PH BLOOD POC 7.52(H) 7.35 - 7.45 06/13/2025 7:20 PM [facility] PCO2 POC 37 35 - 45 mm Hg 06/13/2025 7:20 PM [facility] PO2 POC 66(L) 80 - 105 mm Hg 06/13/2025 7:20 PM [facility] HCO3 (CALC) POC 30(H) 22 - 26 mmol/L 06/13/2025 7:20 PM [facility] HEMOGLOBIN POC 10.0(L) 12.0 - 18.0 g/dL 06/13/2025 7:20 PM [facility] BASE EXCESS POC 7(H) -2 - 3 mmol/L 06/13/2025 7:20 PM [facility] O2 SATURATION POC 96 95 - 98 % 7:20 PM [facility] SODIUM POC 133(L) 138 - 146 mmol/L 06/13/2025 7:20 PM [facility] POTASSIUM POC 5.8(H) 3.5 - 4.9 mmol/L 06/13/2025 7:20 PM [facility] HEMATOCRIT POC 30(L) 38 - 51 % 06/13/2025 7:20 PM [facility] PH TEMP CORRECT 7.52(H) 7.35 - 7.45 06/13/2025 7:20 PM [facility] PCO2 TEMP CORRECT 37 35 - 45 mm Hg 06/13/2025 7:20 PM [facility] PO2 TEMP CORRECT 66(L) 80 - 105 mm Hg 06/13/2025 7:20 PM [facility] SPECIMEN SOURCE, GASES POC Arterial 06/13/2025 7:20 PM [facility] CALCIUM IONIZED POC 4.7(L) 4.8 - 5.2 mg/dL 06/13/2025 7:20 PM CDT [facility] TCO2 (CALC) POC 31(H) 23 - 27 mmol/L 06/13/2025 7:20 PM CDT [facility] FIO2 50.0 21.0 - 100.0 % 06/13/2025 7:20 PM CDT [facility] Comment:FIO2 values reported <21.0 indicate O2 flow in Liters/minute. Values >/= 21.0 indicate percent O2. P/F RATIO POC 132 06/13/2025 7:20 PM T [facility] Comment: P/F Ratio Interpretation ARDS SEVERITY PaO2/FiO2 Mild 200-300 Moderate 100-200 Severe <100 PEEP POC 10 06/13/2025 7:20 PM CDT [facility] PUNC SITE POC No Charge 06/13/2025 7:20 PM T [facility] PATIENT'S TEMPERATURE POC 37.0 degrees 06/13/2025 7:20 PM T [facility] SWEEP POC 3 L/min 06/13/2025 7:20 PM T [facility] ECMO FIO2 POC 100 % 06/13/2025 7:20 PM T [facility] ECMO FLOW POC 5 L/min 06/13/2025 7:20 PM T [facility] Blood, arterial 06/13/2025 7 :20 PM CDT 06/13/2025 7:21 PM CDT us Zenaida Michel MD ABG ORDERABLES Final Result [facility] CLIA # [id number] Formerly [facility] [address] [address] [place], [place] [address] * XR CHEST PA OR AP 1 VW (06/13/2025 5:57 PM CDT) Anatomical Region Laterality Modality Chest Computed Radiogr aphy 06/13/2025 5:57 PM CDT Impressions 06/13/2025 7:58 PM CDT IMPRESSION: Please see below. Exam: XR CHEST PA OR AP 1 VW Date/Time of Exam: 06/13/2025 5:57 PM Reason For Exam: Line Placement. Diagnosis: ST elevation myocardial infarction (STEMI), unspecified artery; Cardiac arrest with ventricular fibrillation (CMS/HCC); Cardiac arrest with ventricular fibrillation (CMS/HCC); CHB (complete heart block); Laboratory test. Comparison: 06/13/2025. Findings: Endotracheal tube terminates 3.0 cm above the jennifer. Nasogastric tube extends into the body of the stomach. The right jugular Guinda-Chelsie catheter has been repositioned with its tip terminating in the right main pulmonary artery. Femoral approach echo cannula terminates in the right atrium. Intra-aortic balloon pump unchanged. Enlargement of the cardiomediastinal silhouette with persistent left basilar consolidative atelectasis versus airspace disease. Persistent perihilar atelectasis versus airspace disease, right greater than left. Linear scar versus platelike atelectasis of the peripheral mid lung ortiz and left upper lobe. Probable small left pleural effusion. No significant right pleural effusion or pneumothorax. Diffuse osteopenia. Impression: 1. Repositioning of the right internal jugular Guinda-Chelsie catheter as described. Narrative Procedure Note Nura Masterson MD - 06/13/2025 IMPRESSION: Please see below. Exam: XR CHEST PA OR AP 1 VW Date/Time of Exam: 06/13/2025 5:57 PM Reason For Exam: Line Placement. Diagnosis: ST elevation myocardial infarction (STEMI), unspecified artery; Cardiac arrest with ventricular fibrillation (CMS/HCC); Cardiac arrest with ventricular fibrillation (CMS/HCC); CHB (complete heart block); Laboratory test. Comparison: 06/13/2025. Findings: Endotracheal tube terminates 3.0 cm above the jennifer. Nasogastric tube extends into the body of the stomach. The right jugular Guinda-Chelsie catheter has been repositioned with its tip terminating in the right main pulmonary artery. Femoral approach echo cannula terminates in the right atrium. Intra-aortic balloon pump unchanged. Enlargement of the cardiomediastinal silhouette with persistent left basilar consolidative atelectasis versus airspace disease. Persistent perihilar atelectasis versus airspace disease, right greater than left. Linear scar versus platelike atelectasis of the peripheral mid lung ortiz and left upper lobe. Probable small left pleural effusion. No significant right pleural effusion or pneumothorax. Diffuse osteopenia. Impression: 1. Repositioning of the right internal jugular Guinda-Chelsie catheter as described. Zenaida Michel MD DIAGNOSTIC IMAGING ORDERABLES Fi nal Result * (ABNORMAL) PNEUMONIA PATHOGEN PCR PANEL (06/13/2025 5:50 PM CDT) Pathologist [facility] [place] Haemophilus influenzae by PCR DETECTED( A) Not Detected 06/13/2025 9:01 PM CDT [facility] Streptococcus pneumoniae by PCR DETECTED( A) Not Detected 06/13/2025 9:01 PM CDT [facility] BAL (Lung, RML) Collection / Unknown 06/13/2025 5:50 PM CDT 06/13/2025 6:27 PM CDT Narrative [facility] - 06/13/2025 9:01 PM CDT NOTE: Per the technology training associate, this current lot of reagent may be insensitive for the full detection of adenoviruses. If adenovirus is within the differential diagnosis, the specimen may be submitted to a reference laboratory for further testing. If desired, order [id number] Lab Test, stating Adenovirus by PCR testing in the ordering comment and notify the Microbiology lab. A negative result does not exclude the possibility of infection. A semi-quantitative (copies/mL) result is provided for bacteria. This panel does not distinguish between nucleic acid from live or bacteria or virus. Culture is needed for recovery of bacterial isolates and antimicrobial susceptibility testing. The Film Array Pneumonia Pathogen PCR Panel is a multiplexed nucleic acid detection test for 33 targets of bacteria, viruses, and resistance markers in respiratory specimens that cause pneumonia. Bacteria: Acinetobacter calcoaceticus-baumannii complex Enterobacter cloacae complex Escherichia coli Haemophilus influenzae Klebsiella aerogenes Klebsiella oxytoca Klebsiella pneumoniae group Moraxella catarrhalis Proteus spp. Pseudomonas aeruginosa Serratia marcescens Staphylococcus aureus Streptococcus agalactiae Streptococcus pneumoniae Streptococcus pyogenes Atypical Bacteria: Chlamydia pneumoniae Legionella pneumophila Mycoplasma pneumoniae Viruses: Adenovirus Coronavirus (229E, OC43, HKU1, NL63) Human Metapneumovirus Human Rhinovirus/Enterovirus Influenza A Influenza B Parainfluenza Virus Respiratory Syncytial Virus Antimicrobial Resistance Genes: CTX-M IMP KPC NDM OXA-48-like VIM mecA/C and MREJ Zenaida Michel MD MICROBIOLOGY - GENERAL ORDERABLE S Final Result Performing Organization Address [facility] Co de Phone Number [facility] CLIA # [id number] [address] [address] * RESPIRATORY CULTURE WITH GRAM STAIN (06/13/2025 5:50 PM CDT) Pathologist [facility] [place] CULTURE <=1000 cfu/mL Normal upper respiratory alon 06/15/2025 11:44 AM CDT [facility] GRAM STAIN No organisms observed 06/15/2025 11:44 AM CDT [facility] BAL (Lung, RML) Collection / Unknown 06/13/2025 5:50 PM CDT 06/13/2025 6:39 PM CDT Zenaida Michel MD MICROBIOLOGY - GENERAL ORDERABLE S Final Result Performing Organization Address [facility] de Phone Number [facility] CLIA # [id number] [address] [place] [address] * (ABNORMAL) POC GLUCOSE (06/13/2025 5:48 PM CDT) GLUCOSE POC 136(H) 74 - 99 mg/dL 06/13/2025 5:48 PM CDT [facility] SPECIMEN SOURCE, GLUCOSE POC Arterial 06/13/2025 5:48 PM CDT [facility] Blood, whole 06/13/2025 5:48 PM CDT 06/13/2025 5:56 PM CDT us Zenaida Michel MD POINT OF CARE TESTING Final Resu lt Performing Organization Address City/[facility]/ZIP Co de Phone Number [facility] CLIA # [id number] [address] [address] [place] [address] * (ABNORMAL) OXIMETRY (06/13/2025 5:46 PM CDT) [facility] OXYHEMOGLOBIN POC 78.7(H) 40.0 - 70.0 % 06/13/2025 5:46 PM CDT [facility] HEMOGLOBIN POC 10.1(L) 12.0 - 18.0 g/dL 06/13/2025 5:46 PM CDT [facility] O2 SATURATION POC 81(H) 40 - 70 % 025 5:46 PM CDT [facility] SPECIMEN SOURCE, GASES POC Venous Mixed 06/13/2025 5:46 PM CDT [facility] SAMPLE SITE, GASES POC N-SY 06/13/2025 5:46 PM CDT [facility] PUNC SITE POC No Charge 06/13/2025 5:46 PM CDT [facility] Blood 06/13/2025 5:46 PM CDT 06/13/2025 5:49 PM CDT Zenaida Michel MD ABG ORDERABLES Final Result Performing Organization Address [facility]/ZIP Co de Phone Number [facility] CLIA # [id number] [address] [id number] * XR CHEST PA OR AP 1 VW (06/13/2025 4:51 PM CDT) Anatomical Region Laterality Modality Chest Computed Radiogr aphy 06/13/2025 4:51 PM CDT Impressions 06/13/2025 9:11 PM CDT IMPRESSION: Please see below. Exam: XR CHEST PA OR AP 1 VW Date/Time of Exam: 06/13/2025 4:51 PM Reason For Exam: Line Placement. Diagnosis: ST elevation myocardial infarction (STEMI), unspecified artery; Cardiac arrest with ventricular fibrillation (CMS/HCC); Cardiac arrest with ventricular fibrillation (CMS/HCC); CHB (complete heart block); Laboratory test. Comparison: 06/13/2025. Findings: Endotracheal tube terminates 3.9 cm above the jennifer. Nasogastric tube extends off the inferior extent of the film below the level left hemidiaphragm into the body of the stomach. Right internal jugular Guinda-Chelsie catheter has been placed loops within the right ventricle and right atrium. Intra-articular pole and probably unchanged. A normal cardiomediastinal silhouette without acute airspace disease, pleural effusion, or pneumothorax is identified. Stable enlargement of the cardiomediastinal silhouette with persistent left basilar and perihilar atelectasis versus airspace disease right greater than left. Probable small left pleural effusion. Negative for right pleural effusion or pneumothorax. Diffuse osteopenia is present. Impression: 1. Interval placement of right internal jugular Guinda-Chelsie catheter looped within the right ventricle and right atrium as described. Repositioning recommended. Narrative Procedure Note Nura Masterson MD - 06/13/2025 IMPRESSION: Please see below. Exam: XR CHEST PA OR AP 1 VW Date/Time of Exam: 06/13/2025 4:51 PM Reason For Exam: Line Placement. Diagnosis: ST elevation myocardial infarction (STEMI), unspecified artery; Cardiac arrest with ventricular fibrillation (CMS/HCC); Cardiac arrest with ventricular fibrillation (CMS/HCC); CHB (complete heart block); Laboratory test. Comparison: 06/13/2025. Findings: Endotracheal tube terminates 3.9 cm above the jennifer. Nasogastric tube extends off the inferior extent of the film below the level left hemidiaphragm into the body of the stomach. Right internal jugular Guinda-Chelsie catheter has been placed loops within the right ventricle and right atrium. Intra-articular pole and probably unchanged. A normal cardiomediastinal silhouette without acute airspace disease, pleural effusion, or pneumothorax is identified. Stable enlargement of the cardiomediastinal silhouette with persistent left basilar and perihilar atelectasis versus airspace disease right greater than left. Probable small left pleural effusion. Negative for right pleural effusion or pneumothorax. Diffuse osteopenia is present. Impression: 1. Interval placement of right internal jugular Guinda-Chelsie catheter looped within the right ventricle and right atrium as described. Repositioning recommended. Zenaida Michel MD DIAGNOSTIC IMAGING ORDERABLES Fi nal Result * (ABNORMAL) POC GLUCOSE (06/13/2025 4:43 PM CDT) [facility] GLUCOSE POC 150(H) 74 - 99 mg/dL 06/13/2025 4:43 PM CDT [facility] SPECIMEN SOURCE, GLUCOSE POC Arterial 06/13/2025 4:43 PM CDT [facility] Blood, whole 06/13/2025 4:43 PM CDT 06/13/2025 4:58 PM CDT Zenaida Michel MD POINT OF CARE TESTING Final Resu lt Performing Organization Address City/[facility]/ZIP Co de Phone Number [facility] CLIA # [id number] [address] [address] * (ABNORMAL) TROPONIN (06/13/2025 4:41 PM CDT) [facility] TROPONIN T, 5TH GEN 4,978(HH) <=15 ng/L 06/13/2025 5:30 PM CDT [facility] Comment:Hemolysis can falsel y decrease Troponin quantitation. Blood Venipuncture / Unknown 06/13/2025 4:41 PM CDT 06/13/2025 4:52 PM CDT Narrative [facility] - 06/13/2025 5:30 PM CDT Troponin elevated. Prince Yordan SANTANA CHEMISTRY ORDERABLES Final Resul t [facility] CLIA # [id number] [address] [address] [place] [address] * (ABNORMAL) PTT (06/13/2025 3:36 PM CDT) [facility] PTT 156.9(HH) 24.8 - 37.2 seconds 06/13/2025 4:06 PM CDT [facility] Blood Venipuncture / Unknown 06/13/2025 3:36 PM CDT 06/13/2025 3:41 PM CDT [facility] - 06/13/2025 4:06 PM CDT Therapeutic Range: Hi-level PE/DVT heparin protocol 80.1 - 95.0 sec Lo-level PE/DVT heparin protocol 70.1 - 85.0 sec Cardiac Heparin Protocol 70.1 - 100.0 sec Zenaida Michel MD HEMATOLOGY ORDERABLES Final Resu lt Performing Organization Address [facility]/ZIP Co de Phone Number [facility] CLIA # [id number] [address] [place] [address] * POC LACTIC ACID (06/13/2025 3:17 PM CDT) [facility] LACTIC ACID POC 1.9 <=2.0 mmol/L 06/13/2025 3:17 PM CDT [facility] SPECIMEN SOURCE, GASES POC Arterial 06/13/2025 3:17 PM CDT [facility] PUNC SITE POC No Charge 06/13/2025 3:17 PM CDT [facility] Blood 06/13/2025 3:17 PM CDT 06/13/2025 3:19 PM CDT [facility] - 06/13/2025 3:17 PM CDT References ranges displayed are for Arterial samples. Zenaida Michel MD POINT OF CARE TESTING Final Resu lt [facility] CLIA # [id number] [address] [address] [place] [address] * (ABNORMAL) BLOOD GAS ARTERIAL (06/13/2025 3:17 PM CDT) [facility] PH BLOOD POC 7.55(H) 7.35 - 7.45 06/13/2025 3:17 PM CDT [facility] PCO2 POC 37 35 - 45 mm Hg 06/13/2025 3:17 PM T [facility] PO2 POC 88 80 - 105 mm Hg 06/13/2025 3:17 PM CDT [facility] HCO3 (CALC) POC 32(H) 22 - 26 mmol/L 06/13/2025 3:17 PM T [facility] HEMOGLOBIN POC 9.9(L) 12.0 - 18.0 g/dL 06/13/2025 3:17 PM T [facility] BASE EXCESS POC 10(H) -2 - 3 mmol/L 06/13/2025 3:17 PM T [facility] O2 SATURATION POC 99(H) 95 - 98 % 025 3:17 PM T [facility] SODIUM POC 133(L) 138 - 146 mmol/L 06/13/2025 3:17 PM T [facility] POTASSIUM POC 5.1(H) 3.5 - 4.9 mmol/L 06/13/2025 3:17 PM T [facility] HEMATOCRIT POC 30(L) 38 - 51 % 06/13/2025 3:17 PM CDT [facility] PH TEMP CORRECT 7.55(H) 7.35 - 7.45 06/13/2025 3:17 PM CDT [facility] PCO2 TEMP CORRECT 37 35 - 45 mm Hg 06/13/2025 3:17 PM CDT [facility] PO2 TEMP CORRECT 88 80 - 105 mm Hg 06/13/2025 3:17 PM T [facility] SPECIMEN SOURCE, GASES POC Arterial 06/13/2025 3:17 PM CDT [facility] CALCIUM IONIZED POC 5.3(H) 4.8 - 5.2 mg/dL 06/13/2025 3:17 PM CDT [facility] TCO2 (CALC) POC 34(H) 23 - 27 mmol/L 06/13/2025 3:17 PM CDT [facility] FIO2 50.0 21.0 - 100.0 % 06/13/2025 3:17 PM CDT [facility] Comment:FIO2 values reported <21.0 indicate O2 flow in Liters/minute. Values >/= 21.0 indicate percent O2. P/F RATIO POC 176 06/13/2025 3:17 PM CDT [facility] Comment: P/F Ratio Interpretation ARDS SEVERITY PaO2/FiO2 Mild 200-300 Moderate 100-200 Severe <100 PEEP POC 10 06/13/2025 3:17 PM CDT [facility] PUNC SITE POC No Charge 06/13/2025 3:17 PM CDT [facility] VENT MODE POC ECMO 06/13/2025 3:17 PM CDT [facility] PATIENT'S TEMPERATURE POC 37.0 degrees 06/13/2025 3:17 PM CDT [facility] SWEEP POC 4 L/min 06/13/2025 3:17 PM CDT [facility] ECMO FIO2 POC 100 % 06/13/2025 3:17 PM CDT [facility] Blood, arterial 06/13/2025 3 :17 PM CDT 06/13/2025 3:19 PM CDT us Zenaida Michel MD ABG ORDERABLES Final Result [facility] CLIA # [id number] [facility] [address] [place] [address] * (ABNORMAL) POC GLUCOSE (06/13/2025 3:15 PM CDT) GLUCOSE POC 149(H) 74 - 99 mg/dL 06/13/2025 3:15 PM CDT [facility] SPECIMEN SOURCE, GLUCOSE POC Arterial 06/13/2025 3:15 PM CDT [facility] Blood, whole 06/13/2025 3:15 PM CDT 06/13/2025 3:26 PM CDT Zenaida Michel MD POINT OF CARE TESTING Final Resu lt Performing Organization Address [facility]/ZIP Co de Phone Number [facility] CLIA # [id number] [address] [address] [place], [place] [address] * (ABNORMAL) POC GLUCOSE (06/13/2025 2:57 PM CDT) GLUCOSE POC 120(H) 74 - 99 mg/dL 06/13/2025 2:57 PM CDT [facility] SPECIMEN SOURCE, GLUCOSE POC Capillary 06/13/2025 2:57 PM CDT [facility] Blood, whole 06/13/2025 2:57 PM CDT 06/13/2025 3:04 PM CDT Zenaida Michel MD POINT OF CARE TESTING Final Resu lt Performing Organization Address [facility]/ZIP Co de Phone Number [facility] CLIA # [id number] [address] [address] [place], [place] [address] * (ABNORMAL) POC GLUCOSE (06/13/2025 2:54 PM CDT) GLUCOSE POC 357(H) 74 - 99 mg/dL 06/13/2025 2:54 PM CDT [facility] SPECIMEN SOURCE, GLUCOSE POC Capillary 06/13/2025 2:54 PM CDT [facility] Blood, whole 06/13/2025 2:54 PM CDT 06/13/2025 3:04 PM CDT Zenaida Michel MD POINT OF CARE TESTING Final Resu lt Performing Organization Address [facility] Co de Phone Number [facility] CLIA # [id number] [address] [address] * (ABNORMAL) POC GLUCOSE (06/13/2025 2:09 PM CDT) Pathologist [facility] GLUCOSE POC 144(H) 74 - 99 mg/dL 06/13/2025 2:09 PM CDT [facility] SPECIMEN SOURCE, GLUCOSE POC Arterial 06/13/2025 2:09 PM CDT [facility] Blood, whole 06/13/2025 2:09 PM CDT 06/13/2025 2:23 PM CDT Zenaida Michel MD POINT OF CARE TESTING Final Resu lt Performing Organization Address [facility] Co de Phone Number [facility] CLIA # [id number] [address] [address] * EKG 12-LEAD (06/13/2025 1:04 PM CDT) 06/13/2025 1:0 4 PM CDT Narrative [facility] - 06/14/2025 6:41 AM CDT [address] [address] Test Date: 2025-06-13 Pat Name: ISAAC FRANKLIN Department: 12 Room: [address] [place] [address] Gender: Male Compliance Representative: [email or web address] : 1960 Requested By: Order Number: [id number] Reading MD: Smitha Vora Measurements Intervals Malin Rate: 81 P: 87 GA: 176 QRS: 48 QRSD: 114 T: 89 QT: 444 QTc: 515 Interpretive Statements Normal sinus rhythm Low voltage QRS ST & T wave abnormality, consider anterior ischemia Prolonged QT Abnormal ECG Electronically Signed On 06-14-2025 6:41:06 CDT by Smitha Vora Procedure Note Provider, Historical - 06/14/2025 [facility] [address] [place] [address] Test Date: 2025-06-13 Pat Name: ISAAC FRANKLIN Department: 12 Room: [address] [place] [address] Gender: Male Compliance Representative: [email or web address] : 1960 Requested By: Order Number: [id number] Reading MD: Smitha Vora Measurements Intervals Malin Rate: 81 P: 87 GA: 176 QRS: 48 QRSD: 114 T: 89 QT: 444 QTc: 515 Interpretive Statements Normal sinus rhythm Low voltage QRS ST & T wave abnormality, consider anterior ischemia Prolonged QT Abnormal ECG Electronically Signed On 06-14-2025 6:41:06 CDT by Smitha Vora us Prince Yordan SANTANA ECG ORDERABLES Final Result INTERFACE SYSTEM Refer to clinic/hospital department * (ABNORMAL) POC GLUCOSE (06/13/2025 1:02 PM CDT) GLUCOSE POC 155(H) 74 - 99 mg/dL 06/13/2025 1:02 PM CDT [facility] SPECIMEN SOURCE, GLUCOSE POC Arterial 06/13/2025 1:02 PM CDT [facility] Blood, whole 06/13/2025 1:02 PM CDT 06/13/2025 1:11 PM CDT us Zenaida Michel MD POINT OF CARE TESTING Final Resu lt [facility] CLIA # [id number] [address] [facility] [place] [address] * (ABNORMAL) PTT (06/13/2025 12:58 PM CDT) PTT >249.0(HH) 24.8 - 37.2 seconds 06/13/2025 2:01 PM CDT [facility] Blood Arterial / Unknown 12:58 PM CDT 06/13/2025 1:07 PM CDT [facility] - 06/13/2025 2:01 PM CDT Therapeutic Range: Hi-level PE/DVT heparin protocol 80.1 - 95.0 sec Lo-level PE/DVT heparin protocol 70.1 - 85.0 sec Cardiac Heparin Protocol 70.1 - 100.0 sec Zenaida Michel MD HEMATOLOGY ORDERABLES Final Resu lt Performing Organization Address City/[facility]/ZIP Co de Phone Number [facility] CLIA # [id number] [address] [place] [address] * (ABNORMAL) POC LACTIC ACID (06/13/2025 11:52 AM CDT) Pathologist [facility] LACTIC ACID POC 2.2(H) <=2.0 mmol/L 06/13/2025 11:52 AM CDT [facility] SPECIMEN SOURCE, GASES POC Arterial 06/13/2025 11:52 AM CDT [facility] COMMENT, GASES POC R RADIAL 06/13/2025 11:52 AM CDT [facility] PUNC SITE POC No Charge 06/13/2025 11:52 AM CDT [facility] Blood 06/13/2025 11:5 2 AM CDT 06/13/2025 11:54 AM CDT [facility] - 06/13/2025 11:52 AM CDT References ranges displayed are for Arterial samples. Zenaida Michel MD POINT OF CARE TESTING Final Resu lt Performing Organization Address City/[facility]/ZIP Co de Phone Number [facility] CLIA # [id number] [facility] [address] [place] [address] * (ABNORMAL) BLOOD GAS ARTERIAL (06/13/2025 11:52 AM [facility]) [facility] PH BLOOD POC 7.44 7.35 - 7.45 06/13/2025 11:52 AM [facility] PCO2 POC 39 35 - 45 mm Hg 06/13/2025 11:52 AM [facility] PO2 POC 64(L) 80 - 105 mm Hg 06/13/2025 11:52 AM [facility] HCO3 (CALC) POC 27(H) 22 - 26 mmol/L 06/13/2025 11:52 AM [facility] HEMOGLOBIN POC 11.1(L) 12.0 - 18.0 g/dL 06/13/2025 11:52 AM [facility] BASE EXCESS POC 2 -2 - 3 mmol/L 06/13/2025 11:52 AM [facility] O2 SATURATION POC 94(L) 95 - 98 % 025 11:52 AM [facility] SODIUM POC 134(L) 138 - 146 mmol/L 06/13/2025 11:52 AM [facility] POTASSIUM POC 4.4 3.5 - 4.9 mmol/L 06/13/2025 11:52 AM [facility] HEMATOCRIT POC 33(L) 38 - 51 % 06/13/2025 11:52 AM [facility] PH TEMP CORRECT 7.44 7.35 - 7.45 06/13/2025 11:52 AM [facility] PCO2 TEMP CORRECT 39 35 - 45 mm Hg 06/13/2025 11:52 AM [facility] PO2 TEMP CORRECT 64(L) 80 - 105 mm Hg 06/13/2025 11:52 AM [facility] SPECIMEN SOURCE, GASES POC Arterial 06/13/2025 11:52 AM [facility] COMMENT, GASES POC R RADIAL 06/13/2025 11:52 AM [facility] CALCIUM IONIZED POC 4.6(L) 4.8 - 5.2 mg/dL 06/13/2025 11:52 AM [facility] TCO2 (CALC) POC 28(H) 23 - 27 mmol/L 06/13/2025 11:52 AM [facility] FIO2 100.0 21.0 - 100.0 % 06/13/2025 11:52 AM [facility] Comment:FIO2 values reported <21.0 indicate O2 flow in Liters/minute. Values >/= 21.0 indicate percent O2. P/F RATIO POC 64 06/13/2025 11:52 AM [facility] Comment: P/F Ratio Interpretation ARDS SEVERITY PaO2/FiO2 Mild 200-300 Moderate 100-200 Severe <100 PEEP POC 10 06/13/2025 11:52 AM [facility] PUNC SITE POC No Charge 06/13/2025 11:52 AM [facility] PATIENT'S TEMPERATURE POC 37.0 degrees 06/13/2025 11:52 AM [facility] SWEEP POC 4 L/min 06/13/2025 11:52 AM [facility] ECMO FIO2 POC 100 % 06/13/2025 11:52 AM [facility] Blood, arterial 06/13/2025 1 1:52 AM CDT 06/13/2025 11:54 AM CDT us Zenaida Michel MD ABG ORDERABLES Final Result [facility] CLIA # [id number] [address] [place] [address] [place], [place] [address] * (ABNORMAL) POC GLUCOSE (06/13/2025 11:49 AM CDT) GLUCOSE POC 134(H) 74 - 99 mg/dL 06/13/2025 11:49 AM CDT [facility] SPECIMEN SOURCE, GLUCOSE POC Arterial 06/13/2025 11:49 AM CDT [facility] Blood, whole 06/13/2025 11:4 9 AM CDT 06/13/2025 12:30 PM CDT Zenaida Michel MD POINT OF CARE TESTING Final Resu lt Performing Organization Address City/[facility]/ZIP Co de Phone Number [facility] CLIA # [id number] [address] [address] [place] [address] * POC LACTIC ACID (06/13/2025 11:42 AM CDT) LACTIC ACID POC 2.0 <=2.0 mmol/L 06/13/2025 11:42 AM CDT [facility] SPECIMEN SOURCE, GASES POC Arterial 06/13/2025 11:42 AM CDT [facility] COMMENT, GASES POC Post Oxygenator 06/13/2025 11:42 AM CDT [facility] PUN SITE POC No Charge 06/13/2025 11:42 AM CDT [facility] Blood 06/13/2025 11:4 2 AM CDT 06/13/2025 11:43 AM CDT Narrative [facility] - 06/13/2025 11:42 AM CDT References ranges displayed are for Arterial samples. Zeanida Michel MD POINT OF CARE TESTING Final Resu lt Performing Organization Address City/[facility]/ZIP Co de Phone Number [facility] CLIA # [id number] [address] [id number] * (ABNORMAL) BLOOD GAS ARTERIAL (06/13/2025 11:42 AM CDT) PH BLOOD POC 7.38 7.35 - 7.45 06/13/2025 11:42 AM [facility] PCO2 POC 45 35 - 45 mm Hg 06/13/2025 11:42 AM [facility] PO2 POC 499(H) 80 - 105 mm Hg 06/13/2025 11:42 AM [facility] HCO3 (CALC) POC 27(H) 22 - 26 mmol/L 06/13/2025 11:42 AM [facility] HEMOGLOBIN POC 11.2(L) 12.0 - 18.0 g/dL 06/13/2025 11:42 AM [facility] BASE EXCESS POC 2 -2 - 3 mmol/L 06/13/2025 11:42 AM [facility] O2 SATURATION POC 100(H) 95 - 98 % 025 11:42 AM [facility] SODIUM POC 134(L) 138 - 146 mmol/L 06/13/2025 11:42 AM [facility] POTASSIUM POC 4.2 3.5 - 4.9 mmol/L 06/13/2025 11:42 AM [facility] HEMATOCRIT POC 34(L) 38 - 51 % 06/13/2025 11:42 AM [facility] PH TEMP CORRECT 7.38 7.35 - 7.45 06/13/2025 11:42 AM [facility] PCO2 TEMP CORRECT 45 35 - 45 mm Hg 06/13/2025 11:42 AM [facility] PO2 TEMP CORRECT 499(H) 80 - 105 mm Hg 06/13/2025 11:42 AM [facility] SPECIMEN SOURCE, GASES POC Arterial 06/13/2025 11:42 AM [facility] COMMENT, GASES POC Post Oxygenator 06/13/2025 11:42 AM [facility] CALCIUM IONIZED POC 4.6(L) 4.8 - 5.2 mg/dL 06/13/2025 11:42 AM [facility] TCO2 (CALC) POC 28(H) 23 - 27 mmol/L 06/13/2025 11:42 AM CDT [facility] FIO2 100.0 21.0 - 100.0 % 06/13/2025 11:42 AM T [facility] Comment:FIO2 values reported <21.0 indicate O2 flow in Liters/minute. Values >/= 21.0 indicate percent O2. P/F RATIO POC 499 06/13/2025 11:42 AM CDT [facility] Comment: P/F Ratio Interpretation ARDS SEVERITY PaO2/FiO2 Mild 200-300 Moderate 100-200 Severe <100 PEEP POC 10 06/13/2025 11:42 AM T [facility] SITE POC No Charge 06/13/2025 11:42 AM T [facility] PATIENT'S TEMPERATURE POC 37.0 degrees 06/13/2025 11:42 AM T [facility] SWEEP POC 4 L/min 06/13/2025 11:42 AM T [facility] ECMO FIO2 POC 100 % 06/13/2025 11:42 AM T [facility] Blood, arterial 06/13/2025 1 1:42 AM CDT 06/13/2025 11:43 AM CDT us Zenaida Michel MD ABG ORDERABLES Final Result [facility] CLIA # [id number] [address] [place] [address] * (ABNORMAL) POC LACTIC ACID (06/13/2025 11:37 AM CDT) LACTIC ACID POC 2.3(H) <=2.0 mmol/L 06/13/2025 11:37 AM T [facility] SPECIMEN SOURCE, GASES POC Arterial 06/13/2025 11:37 AM T [facility] COMMENT, GASES POC PRE OX 06/13/2025 11:37 AM T [facility] SITE POC No Charge 06/13/2025 11:37 AM T [facility] Blood 06/13/2025 11:3 7 AM CDT 06/13/2025 11:39 AM CDT Narrative [facility] - 06/13/2025 11:37 AM CDT References ranges displayed are for Arterial samples. Zenaida Michel MD POINT OF CARE TESTING Final Resu lt [facility] CLIA # [id number] [address] [place] [address] * (ABNORMAL) BLOOD GAS ARTERIAL (06/13/2025 11:37 AM CDT) PH BLOOD POC 7.32(L) 7.35 - 7.45 06/13/2025 11:37 AM [facility] PCO2 POC 57(H) 35 - 45 mm Hg 06/13/2025 11:37 AM [facility] PO2 POC 61(L) 80 - 105 mm Hg 06/13/2025 11:37 AM [facility] HCO3 (CALC) POC 29(H) 22 - 26 mmol/L 06/13/2025 11:37 AM [facility] HEMOGLOBIN POC 11.0(L) 12.0 - 18.0 g/dL 06/13/2025 11:37 AM [facility] BASE EXCESS POC 3 -2 - 3 mmol/L 06/13/2025 11:37 AM [facility] O2 SATURATION POC 90(L) 95 - 98 % 11:37 AM [facility] SODIUM POC 135(L) 138 - 146 mmol/L 06/13/2025 11:37 AM [facility] POTASSIUM POC 4.3 3.5 - 4.9 mmol/L 06/13/2025 11:37 AM [facility] HEMATOCRIT POC 33(L) 38 - 51 % 06/13/2025 11:37 AM [facility] PH TEMP CORRECT 7.32(L) 7.35 - 7.45 06/13/2025 11:37 AM [facility] PCO2 TEMP CORRECT 57(H) 35 - 45 mm Hg 06/13/2025 11:37 AM [facility] PO2 TEMP CORRECT 61(L) 80 - 105 mm Hg 06/13/2025 11:37 AM [facility] SPECIMEN SOURCE, GASES POC Arterial 06/13/2025 11:37 AM [facility] COMMENT, GASES POC PRE OX 06/13/2025 11:37 AM [facility] CALCIUM IONIZED POC 4.8 4.8 - 5.2 mg/dL 06/13/2025 11:37 AM [facility] TCO2 (CALC) POC 31(H) 23 - 27 mmol/L 06/13/2025 11:37 AM [facility] FIO2 100.0 21.0 - 100.0 % 06/13/2025 11:37 AM [facility] Comment:FIO2 values reported <21.0 indicate O2 flow in Liters/minute. Values >/= 21.0 indicate percent O2. P/F RATIO POC 61 06/13/2025 11:37 AM [facility] Comment: P/F Ratio Interpretation ARDS SEVERITY PaO2/FiO2 Mild 200-300 Moderate 100-200 Severe <100 PEEP POC 10 06/13/2025 11:37 AM [facility] PUNC SITE POC No Charge 06/13/2025 11:37 AM [facility] VENT MODE POC ECMO 06/13/2025 11:37 AM [facility] PATIENT'S TEMPERATURE POC 37.0 degrees 06/13/2025 11:37 AM [facility] SWEEP POC 4 L/min 06/13/2025 11:37 AM [facility] ECMO FIO2 POC 100 % 06/13/2025 11:37 AM CDT [facility] Blood, arterial 06/13/2025 1 1:37 AM CDT 06/13/2025 11:39 AM CDT Zenaida MATOS ORDERABLES Final Result [facility] CLIA # [id number] [address] [place] [address] [place] [address] * LEFT HEART CATH, INTRA AORTIC BALLOON PUMP REMOVAL, INTRA AORTIC BALLOON PUMP INSERTION, PERCUTANEOUS CORONARY INTERVENTION, IVUS-CORONARY INTRAVASCULAR (06/13/2025 10:58 AM CDT) Narrative [facility] - 06/13/2025 11:13 AM CDT Table formatting from the original result was not included. Cardiac Catheterization Report [place], [place] PATIENT: Isaac Franklin PATIENT NUMBER: [id number] BIRTHDATE: 1960 DATE: 06/13/2025 TIME: 11:13 AM Procedures: Removal of intra-aortic balloon pump Insertion of new intra-aortic balloon pump Left heart catheterization Selective coronary angiography Percutaneous coronary intervention Intravascular ultrasound Consent: Informed consent was obtained from patient's (with patient being intubated and sedated and emergent indication) after a thorough discussion of risk, benefits and potential complications. The family verbalized understanding and agreed to undergo the procedure (s). Consent placed in the chart. Procedural details: The patient was brought to the cardiac catheterization area. Additional versed and fentanyl were administered intravenously for sedation (refer to medication documentation for details). Patient was monitored throughout the procedure by myself, Intramural Director staff. Blood pressure, oxygen level, heart rate and level of consciousness were assessed throughout the procedure and at its conclusion. Left Heart Catheterization, Coronary Artery Angiography and percutaneous coronary intervention: The right femoral area was draped and prepared in the standard sterile fashion. The right groin area was kept sterile with thorough preparation. He was noted to be already receiving intravenous antibiotics. Previously inserted balloon pump was wired with a V18 wire to secure access. The balloon pump was then removed via the 8 Welsh sheath. 6 Welsh JR4 catheter to engage the right coronary artery. Cine angiogram obtained. Subsequently, 6 Welsh JR4 guide catheter engaged the right coronary artery. Additional heparin utilized for therapeutic ACT (refer to medication documentation for details). 0.014 run-through wire then advanced past in-stent thrombosis lesion. 3 x 12 mm balloon used for dilatation with advent of flow. 4 mm NC balloon angioplasty performed in the proximal to mid stented segment. Intravascular ultrasound performed. This showed well apposed and expanded stent. Proximal reference noted to be 4.5 mm. 4.5 mm NC balloon then utilized to perform balloon angioplasty of the proximal to mid stented segment. Repeat intravascular ultrasound performed. This showed well-expanded and apposed stents without residual intra stent thrombus. Very distal/apical RPDA had residual thrombus. Otherwise, excellent angiographic result obtained. 6 Welsh JL4 catheter utilized to engage the left coronary system and obtain cine angiograms. 6 Welsh JR4 used to obtain the left heart hemodynamic parameters. A new 40 cc intra-aortic balloon pump then again advanced into the aorta through the 8 Welsh sheath. This was placed at 1:1 augmentation with appropriate augmentation. Position confirmed with fluoroscopy. At the end of procedure, patient was transferred back to holding area/hospital room in hemodynamically stable state. Lesion characteristics: ACC AHA type: Type Non-C Preprocedure PERRY 0 flow Postprocedure PERRY 3 flow. Hemodynamics : Left ventricular end-diastolic pressure 21 mmHg. No significant gradient across the aortic valve on pullback. Selective Coronary Angiography : 1. Left main coronary artery: It arises normally from the left coronary sinus. It trifurcates into the left anterior descending artery, ramus intermedius and the left circumflex artery. It is widely patent with mild luminal irregularities 2. Left anterior descending artery: It is a large vessel which gives rise to multiple small diagonal branches. It and its branches have have mild luminal irregularities. 3. Left circumflex artery: It is a nondominant vessel. It gives rise to one main obtuse marginal branches. Proximal left circumflex artery has 30% stenosis. Otherwise, it and its branches have mild luminal irregularities. 4, Right coronary artery: It arises normally from the right coronary sinus. It is a dominant vessel. It divides into the right posterior descending artery and the right posterolateral branches. Proximal right coronary artery has 100% in-stent thrombosis. Very distal/apical sending artery has residual thrombus. 5. Ramus intermedius: It is a moderate caliber vessel. It has mild diffuse luminal irregularities. 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 Successful IVUS guided balloon angioplasty with 4.5 mm NC balloon. Very small area of residual distal/apical RPDA thrombus Left ventricular end-diastolic pressure, 21 mmHg Successful removal and subsequent reinsertion of 40 cc intra-aortic balloon pump RECOMMENDATIONS: Transfer to cardiac ICU for further inpatient management. Discussion held regarding antiplatelet therapy and anticoagulation therapy. Given that he will be on anticoagulation for mechanical support, we will continue with aspirin 81 mg daily and ticagrelor 90 mg twice daily with a higher goal of therapeutic anticoagulation. Dual antiplatelet therapy with aspirin 81 mg daily and ticagrelor 90 mg twice daily for at least 1 year and mono antiplatelet therapy thereafter unless prohibitive. Prince Yordan SANTANA, FAC, RPVI 06/13/2025 11:13 AM Estimated Blood Loss There was minimal blood loss during procedure. Assist Devices An IABP was inserted through the right femoral artery after intervention began. The augmentation was 1:1. PCI RISK [facility] Frailty Score: Terminally Ill (Life expectancy < 6 months). NYHA Class: Class II: Slight limitation of physical activity. Comfortable at rest, but ordinary physical activity results in symptoms of HF. (GONZALEZ, walking more than 2 blocks would cause GONZALEZ) CV Instability: persistent ischemic symptoms (chest pain, LUIS). PAD: Unknown. Cerebrovascular Disease History: Unknown us Prince Yordan SANTANA CUP CATH ORDERABLES Final Result [facility] CARDIOLOGY [facility] [id number] [address] [facility] [address] [place] [address], [place] [phone] * (ABNORMAL) POC ACTIVATED CLOTTING TIME (06/13/2025 10:36 AM CDT) [facility] Signature ACTIVATED CLOTTING TIME POC 268(H) 116 - 140 sec 06/13/2025 10:36 AM CDT [facility] Blood 06/13/2025 10:3 6 AM CDT 06/13/2025 11:31 AM CDT Zenaida Michel MD POINT OF CARE TESTING Final Resu lt Performing Organization Address City/[facility]/ZIP Co de Phone Number [facility] CLIA # [id number] [address] [id number] * (ABNORMAL) POC ACTIVATED CLOTTING TIME (06/13/2025 10:22 AM CDT) ACTIVATED CLOTTING TIME POC 170(H) 116 - 140 sec 06/13/2025 10:22 AM CDT [facility] Blood 06/13/2025 10:2 2 AM CDT 06/13/2025 11:31 AM CDT Zenaida Michel MD POINT OF CARE TESTING Final Resu lt Performing Organization Address [facility] Co de Phone Number [facility] CLIA # [id number] [address] [address] * POC LACTIC ACID (06/13/2025 9:03 AM CDT) LACTIC ACID POC 1.7 <=2.0 mmol/L 06/13/2025 9:03 AM CDT [facility] SPECIMEN SOURCE, GASES POC Arterial 06/13/2025 9:03 AM CDT [facility] SITE POC No Charge 06/13/2025 9:03 AM CDT [facility] Blood 06/13/2025 9:03 AM CDT 06/13/2025 9:05 AM CDT Narrative [facility] - 06/13/2025 9:03 AM CDT References ranges displayed are for Arterial samples. Zenaida Michel MD POINT OF CARE TESTING Final Resu lt Performing Organization Address City/[facility]/ZIP Co de Phone Number [facility] CLIA # [id number] [address] [place] [address] [place] [address] * (ABNORMAL) BLOOD GAS ARTERIAL (06/13/2025 9:03 AM [facility]) [facility] PH BLOOD POC 7.50(H) 7.35 - 7.45 06/13/2025 9:03 AM [facility] PCO2 POC 34(L) 35 - 45 mm Hg 06/13/2025 9:03 AM [facility] PO2 POC 76(L) 80 - 105 mm Hg 06/13/2025 9:03 AM [facility] HCO3 (CALC) POC 27(H) 22 - 26 mmol/L 06/13/2025 9:03 AM [facility] HEMOGLOBIN POC 10.1(L) 12.0 - 18.0 g/dL 06/13/2025 9:03 AM [facility] BASE EXCESS POC 3 -2 - 3 mmol/L 06/13/2025 9:03 AM [facility] O2 SATURATION POC 97 95 - 98 % 9:03 AM [facility] SODIUM POC 135(L) 138 - 146 mmol/L 06/13/2025 9:03 AM [facility] POTASSIUM POC 4.3 3.5 - 4.9 mmol/L 06/13/2025 9:03 AM [facility] HEMATOCRIT POC 30(L) 38 - 51 % 06/13/2025 9:03 AM [facility] PH TEMP CORRECT 7.50(H) 7.35 - 7.45 06/13/2025 9:03 AM [facility] PCO2 TEMP CORRECT 34(L) 35 - 45 mm Hg 06/13/2025 9:03 AM [facility] PO2 TEMP CORRECT 76(L) 80 - 105 mm Hg 06/13/2025 9:03 AM [facility] SPECIMEN SOURCE, GASES POC Arterial 06/13/2025 9:03 AM CDT [facility] CALCIUM IONIZED POC 4.8 4.8 - 5.2 mg/dL 06/13/2025 9:03 AM T [facility] TCO2 (CALC) POC 28(H) 23 - 27 mmol/L 06/13/2025 9:03 AM T [facility] FIO2 40.0 21.0 - 100.0 % 06/13/2025 9:03 AM T [facility] Comment:FIO2 values reported <21.0 indicate O2 flow in Liters/minute. Values >/= 21.0 indicate percent O2. P/F RATIO POC 190 06/13/2025 9:03 AM [facility] Comment: P/F Ratio Interpretation ARDS SEVERITY PaO2/FiO2 Mild 200-300 Moderate 100-200 Severe <100 [facility] POC No Charge 06/13/2025 9:03 AM [facility] PATIENT'S TEMPERATURE POC 37.0 degrees 06/13/2025 9:03 AM [facility] SWEEP POC 5 L/min 06/13/2025 9:03 AM [facility] ECMO FIO2 POC 100 % 06/13/2025 9:03 AM [facility] Blood, arterial 06/13/2025 9 :03 AM CDT 06/13/2025 9:05 AM CDT us Zenaida Michel MD ABG ORDERABLES Final Result [facility] CLIA # [id number] [address] [place] [address] [place], [place] [id number] * POC LACTIC ACID (06/13/2025 8:56 AM CDT) LACTIC ACID POC 1.9 <=2.0 mmol/L 06/13/2025 8:56 AM T [facility] SPECIMEN SOURCE, GASES POC Arterial 06/13/2025 8:56 AM [facility] SITE POC No Charge 06/13/2025 8:56 AM T [facility] Blood 06/13/2025 8:56 AM CDT 06/13/2025 8:58 AM CDT Narrative [facility] - 06/13/2025 8:56 AM CDT References ranges displayed are for Arterial samples. Zenaida Michel MD POINT OF CARE TESTING Final Resu lt [facility] CLIA # [id number] [address] [place] [address] * (ABNORMAL) BLOOD GAS ARTERIAL (06/13/2025 8:56 AM CDT) PH BLOOD POC 7.55(H) 7.35 - 7.45 06/13/2025 8:56 AM T [facility] PCO2 POC 32(L) 35 - 45 mm Hg 06/13/2025 8:56 AM [facility] PO2 POC 61(L) 80 - 105 mm Hg 06/13/2025 8:56 AM [facility] HCO3 (CALC) POC 28(H) 22 - 26 mmol/L 06/13/2025 8:56 AM T [facility] HEMOGLOBIN POC 10.3(L) 12.0 - 18.0 g/dL 06/13/2025 8:56 AM [facility] BASE EXCESS POC 6(H) -2 - 3 mmol/L 06/13/2025 8:56 AM [facility] O2 SATURATION POC 94(L) 95 - 98 % 06/13/2025 8:56 AM [facility] SODIUM POC 135(L) 138 - 146 mmol/L 06/13/2025 8:56 AM [facility] POTASSIUM POC 4.8 3.5 - 4.9 mmol/L 06/13/2025 8:56 AM [facility] HEMATOCRIT POC 31(L) 38 - 51 % 06/13/2025 8:56 AM CDT [facility] PH TEMP CORRECT 7.55(H) 7.35 - 7.45 06/13/20 8:56 AM CDT [facility] PCO2 TEMP CORRECT 32(L) 35 - 45 mm Hg 06/13/2025 8:56 AM CDT [facility] PO2 TEMP CORRECT 61(L) 80 - 105 mm Hg 06/13/2025 8:56 AM CDT [facility] SPECIMEN SOURCE, GASES POC Arterial 06/13/2025 8:56 AM CDT [facility] CALCIUM IONIZED POC 4.7(L) 4.8 - 5.2 mg/dL 06/13/2025 8:56 AM CDT [facility] TCO2 (CALC) POC 29(H) 23 - 27 mmol/L 06/13/2025 8:56 AM CDT [facility] PUNC SITE POC No Charge 06/13/2025 8:56 AM CDT [facility] PATIENT'S TEMPERATURE POC 37.0 degrees 06/13/2025 8:56 AM T [facility] Blood, arterial 06/13/2025 8 :56 AM CDT 06/13/2025 8:58 AM CDT Zenaida Michel MD ABG ORDERABLES Final Result [facility] CLIA # [id number] [address] [place] [address] [place] [address] * (ABNORMAL) TROPONIN (06/13/2025 8:53 AM CDT) TROPONIN T, 5TH GEN 4,705(HH) <=15 ng/L 06/13/2025 10:04 AM CDT [facility] Blood Venipuncture / Unknown 06/13/2025 8:53 AM CDT 06/13/2025 9:02 AM CDT Narrative [facility] - 06/13/2025 10:04 AM CDT Troponin elevated. us Prince Yodran SANTANA CHEMISTRY ORDERABLES Final Resul t Performing Organization Address [facility] Co de Phone Number [facility] CLIA # [id number] [address] [address] * (ABNORMAL) POC GLUCOSE (06/13/2025 8:51 AM CDT) GLUCOSE POC 108(H) 74 - 99 mg/dL 06/13/2025 8:51 AM CDT [facility] SPECIMEN SOURCE, GLUCOSE POC Arterial 06/13/2025 8:51 AM CDT [facility] Blood, whole 06/13/2025 8:51 AM CDT 06/13/2025 9:00 AM CDT us Zenaida Michel MD POINT OF CARE TESTING Final Resu lt Performing Organization Address [facility] Co de Phone Number [facility] CLIA # [id number] [address] [address] * EKG 12-LEAD (06/13/2025 8:03 AM CDT) 06/13/2025 8:03 AM CDT Narrative [facility] - 06/13/2025 12:56 PM CDT [address] [address] Test Date: 2025-06-13 Pat Name: ISAAC FRANKLIN Department: 12 Room: [address] [place] [address] Gender: Male Compliance Representative: [email or web address] : 1960 Requested By: Order Number: [id number] Terra MD: Smitha Vora Measurements Intervals Malin Rate: 54 P: 68 GA: 224 QRS: 14 QRSD: 114 T: 118 QT: 528 QTc: 500 Interpretive Statements Critical Test Result: STEMI Sinus bradycardia with 1st degree AV block Low voltage QRS ST elevation, consider inferior injury or acute infarct Prolonged QT ACUTE NC / STEMI Consider right ventricular involvement in acute inferior infarct Abnormal ECG Electronically Signed On 06-13-2025 12:56:17 CDT by Smitha Vora Procedure Note Provider, Historical - 06/13/2025 [facility] [address] [place] [address] Test Date: 2025-06-13 Pat Name: ISAAC FRANKLIN Department: 12 Room: [address] [place] [address] Gender: Male Compliance Representative: [email or web address] : 1960 Requested By: Order Number: [id number] Reading MD: Smitha Vora Measurements Intervals Malin Rate: 54 P: 68 GA: 224 QRS: 14 QRSD: 114 T: 118 QT: 528 QTc: 500 Interpretive Statements Critical Test Result: STEMI Sinus bradycardia with 1st degree AV block Low voltage QRS ST elevation, consider inferior injury or acute infarct Prolonged QT ACUTE NC / STEMI Consider right ventricular involvement in acute inferior infarct Abnormal ECG Electronically Signed On 06-13-2025 12:56:17 CDT by Smitha Vora us Prince Yordan SANTANA ECG ORDERABLES Final Result Performing Organization Address City/State/[facility] Co de Phone Number INTERFACE SYSTEM Refer to clinic/hospital department * POC LACTIC ACID (06/13/2025 7:17 AM CDT) LACTIC ACID POC 1.8 <=2.0 mmol/L 06/13/2025 7:17 AM CDT [facility] SPECIMEN SOURCE, GASES POC Arterial 06/13/2025 7:17 AM CDT [facility] PUN SITE POC No Charge 06/13/2025 7:17 AM CDT [facility] Blood 06/13/2025 7:17 AM CDT 06/13/2025 7:19 AM CDT Narrative [facility] - 06/13/2025 7:17 AM CDT References ranges displayed are for Arterial samples. Zenaida Michel MD POINT OF CARE TESTING Final Resu lt [facility] NANCY # [id number] [address] [place] [address] * (ABNORMAL) BLOOD GAS ARTERIAL (06/13/2025 7:17 AM CDT) PH BLOOD POC 7.48(H) 7.35 - 7.45 06/13/2025 7:17 AM T [facility] PCO2 POC 37 35 - 45 mm Hg 06/13/2025 7:17 AM T [facility] PO2 POC 231(H) 80 - 105 mm Hg 06/13/2025 7:17 AM [facility] HCO3 (CALC) POC 28(H) 22 - 26 mmol/L 06/13/2025 7:17 AM [facility] HEMOGLOBIN POC 10.1(L) 12.0 - 18.0 g/dL 06/13/2025 7:17 AM [facility] BASE EXCESS POC 4(H) -2 - 3 mmol/L 06/13/2025 7:17 AM [facility] O2 SATURATION POC 100(H) 95 - 98 % 025 7:17 AM T [facility] SODIUM POC 135(L) 138 - 146 mmol/L 06/13/2025 7:17 AM [facility] POTASSIUM POC 4.3 3.5 - 4.9 mmol/L 06/13/2025 7:17 AM T [facility] HEMATOCRIT POC 30(L) 38 - 51 % 06/13/2025 7:17 AM T [facility] PH TEMP CORRECT 7.48(H) 7.35 - 7.45 06/13/2025 7:17 AM T [facility] PCO2 TEMP CORRECT 37 35 - 45 mm Hg 06/13/2025 7:17 AM [facility] PO2 TEMP CORRECT 231(H) 80 - 105 mm Hg 06/13/2025 7:17 AM [facility] SPECIMEN SOURCE, GASES POC Arterial 06/13/2025 7:17 AM [facility] CALCIUM IONIZED POC 4.9 4.8 - 5.2 mg/dL 06/13/2025 7:17 AM [facility] TCO2 (CALC) POC 29(H) 23 - 27 mmol/L 06/13/2025 7:17 AM [facility] FIO2 40.0 21.0 - 100.0 % 06/13/2025 7:17 AM [facility] Comment:FIO2 values reported <21.0 indicate O2 flow in Liters/minute. Values >/= 21.0 indicate percent O2. P/F RATIO POC 578 06/13/2025 7:17 AM [facility] Comment: P/F Ratio Interpretation ARDS SEVERITY PaO2/FiO2 Mild 200-300 Moderate 100-200 Severe <100 PEEP POC 10 06/13/2025 7:17 AM [facility] PUNC SITE POC No Charge 06/13/2025 7:17 AM [facility] VENT MODE POC ECMO 06/13/2025 7:17 AM [facility] PATIENT'S TEMPERATURE POC 37.0 degrees 06/13/2025 7:17 AM [facility] SWEEP POC 6 L/min 06/13/2025 7:17 AM [facility] ECMO FIO2 POC 100 % 06/13/2025 7:17 AM [facility] Blood, arterial 06/13/2025 7 :17 AM CDT 06/13/2025 7:19 AM T us Zenaida Michel MD ABG ORDERABLES Final Result [facility] CLIA # [id number] [address] [place] [address] * (ABNORMAL) POC GLUCOSE (06/13/2025 7:14 AM CDT) GLUCOSE POC 122(H) 74 - 99 mg/dL 06/13/2025 7:14 AM CDT [facility] SPECIMEN SOURCE, GLUCOSE POC Arterial 06/13/2025 7:14 AM CDT [facility] Blood, whole 06/13/2025 7:14 AM CDT 06/13/2025 7:21 AM CDT Zenaida Michel MD POINT OF CARE TESTING Final Resu lt Performing Organization Address [facility]/ZIP Co de Phone Number [facility] CLIA # [id number] [address] [facility] [place] [address] * (ABNORMAL) POC GLUCOSE (06/13/2025 6:10 AM CDT) GLUCOSE POC 123(H) 74 - 99 mg/dL 06/13/2025 6:10 AM CDT [facility] SPECIMEN SOURCE, GLUCOSE POC Arterial 06/13/2025 6:10 AM CDT [facility] Blood, whole 06/13/2025 6:10 AM CDT 06/13/2025 6:22 AM CDT Zenaida Michel MD POINT OF CARE TESTING Final Resu lt [facility] CLIA # [id number] [address] [place] [address] * (ABNORMAL) PNEUMONIA PATHOGEN PCR PANEL (06/13/2025 5:30 AM CDT) Haemophilus influenzae by PCR DETECTED( A) Not Detected 06/13/2025 7:24 AM CDT [facility] Streptococcus pneumoniae by PCR DETECTED( A) Not Detected 06/13/2025 7:24 AM CDT [facility] Sputum SPUTUM SPECIMEN OBTAINED BY ASPIRATION / Unknown Collection / Unknown 06/13/2025 5:30 AM CDT 06/13/2025 5:36 AM CDT Narrative [facility] - 06/13/2025 7:24 AM CDT NOTE: Per the technology training associate, this current lot of reagent may be insensitive for the full detection of adenoviruses. If adenovirus is within the differential diagnosis, the specimen may be submitted to a reference laboratory for further testing. If desired, order [id number] Lab Test, stating Adenovirus by PCR testing in the ordering comment and notify the Microbiology lab. A negative result does not exclude the possibility of infection. A semi-quantitative (copies/mL) result is provided for bacteria. This panel does not distinguish between nucleic acid from live or bacteria or virus. Culture is needed for recovery of bacterial isolates and antimicrobial susceptibility testing. The Film Array Pneumonia Pathogen PCR Panel is a multiplexed nucleic acid detection test for 33 targets of bacteria, viruses, and resistance markers in respiratory specimens that cause pneumonia. Bacteria: Acinetobacter calcoaceticus-baumannii complex Enterobacter cloacae complex Escherichia coli Haemophilus influenzae Klebsiella aerogenes Klebsiella oxytoca Klebsiella pneumoniae group Moraxella catarrhalis Proteus spp. Pseudomonas aeruginosa Serratia marcescens Staphylococcus aureus Streptococcus agalactiae Streptococcus pneumoniae Streptococcus pyogenes Atypical Bacteria: Chlamydia pneumoniae Legionella pneumophila Mycoplasma pneumoniae Viruses: Adenovirus Coronavirus (229E, OC43, HKU1, NL63) Human Metapneumovirus Human Rhinovirus/Enterovirus Influenza A Influenza B Parainfluenza Virus Respiratory Syncytial Virus Antimicrobial Resistance Genes: CTX-M IMP KPC NDM OXA-48-like VIM mecA/C and MREJ us Zenaida Michel MD MICROBIOLOGY - GENERAL ORDERABLE S Final Result [facility] CLIA # [id number] [address] [place] [address] * (ABNORMAL) SPUTUM CULTURE WITH GRAM STAIN (06/13/2025 5:30 AM CDT) CULTURE STREPTOCOCCUS PNEUMONIAE(A) SHRUTHI MCG/ML 06/16/2025 9:32 AM CDT [facility] GRAM STAIN Smear contains </=10 squamous epithelial cells per low power field 06/16/2025 9:32 AM CDT [facility] GRAM STAIN >25 PMN WBC/LPF 9:32 AM CDT [facility] GRAM STAIN 1+ (Rare or Occasional) Gram positive cocci 06/16/2025 9:32 AM CDT [facility] Sputum SPUTUM SPECIMEN OBTAINED BY ASPIRATION / Unknown Collection / Unknown 06/13/2025 5:30 AM CDT 06/13/2025 5:36 AM CDT Narrative Organism Antibiotic Method Susceptibility Streptococcus pneumoniae PENICILLIN IV (MENINGITIS) NC C MCG/ML 0.25 mcg/mL: Resistant Streptococcus pneumoniae PENICILLIN IV (NON-MENINGITIS) SHRUTHI MCG/ML 0.25 mcg/mL: Susceptible Streptococcus pneumoniae PENICILLIN ORAL SRHUTHI MCG/ML 0.25 mcg/mL: Intermediate Streptococcus pneumoniae CEFTRIAXONE (MENINGITIS) SHRUTHI MCG/ML <=0.12 mcg/mL: Susceptible Streptococcus pneumoniae CEFTRIAXONE (NON-MENINGITIS) SHRUTHI MCG/ML <=0.12 mcg/mL: Susceptible Streptococcus pneumoniae CEFOTAXIME (MENINGITIS) SHRUTHI M CG/ML <=0.12 mcg/mL: Susceptible Streptococcus pneumoniae CEFOTAXIME (NON-MENINGITIS) SHRUTHI MCG/ML <=0.12 mcg/mL: Susceptible Streptococcus pneumoniae VANCOMYCIN SHRUTHI MCG/ML 0.5 mcg/mL: Susceptible Streptococcus pneumoniae ERYTHROMYCIN SHRUTHI MCG/ML >=8 mcg/mL: Resistant Streptococcus pneumoniae CLINDAMYCIN SHRUTHI MCG/ML >=1 mcg/mL: Resistant Streptococcus pneumoniae TETRACYCLINE SHRUTHI MCG/ML >=16 mcg/mL: Resistant Streptococcus pneumoniae LEVOFLOXACIN SHRUTHI MCG/ML 1 mcg/mL: Susceptible Streptococcus pneumoniae TRIMETHOPRIM/ SULFAMETHOXAZOLE SHRUTHI MCG/ML <=10 mcg/mL: Susceptible Love Gonzalez NP MICROBIOLOGY - GENERA L ORDERABLES Final Result [facility] CLIA # [id number] [address] [facility] [place] [address] * XR CHEST PA OR AP 1 VW (06/13/2025 5:22 AM CDT) Anatomical Region Laterality Modality Chest Computed Radiogr aphy 06/13/2025 5:22 AM CDT Impressions 06/13/2025 7:50 AM CDT IMPRESSION: Atelectasis and/or infiltrate scattered throughout the mid and lower lungs bilaterally, worse on the left. Possible small left pleural effusion. Femoral approach ECMO cannula with tip in the mid right atrium. Femoral approach transvenous pacer wire with tip in the right ventricle. ETT with tip in the mid thoracic trachea. NG tube with tip in the stomach. Remainder unremarkable. Narrative 06/13/2025 7:50 AM CDT Exam: Radiographs: XR CHEST PA OR AP 1 VW Indication: ST elevation myocardial infarction (STEMI), unspecified artery; Cardiac arrest with ventricular fibrillation (CMS/HCC); Cardiac arrest with ventricular fibrillation (CMS/HCC); CHB (complete heart block); Laboratory test Comparison: Chest x-ray dated 06/12/2025 Procedure Note Karl Izaguirre MD - 06/13/2025 Exam: Radiographs: XR CHEST PA OR AP [address]: [address] elevation myocardial infarction (STEMI), unspecified artery; Cardiac arrest with ventricular fibrillation (CMS/HCC); Cardiac arrest with ventricular fibrillation (CMS/HCC); CHB (complete heart block); Laboratory test Comparison: Chest x-ray dated 06/12/2025 IMPRESSION: Atelectasis and/or infiltrate scattered throughout the mid and lower lungs bilaterally, worse on the left. Possible small left pleural effusion. Femoral approach ECMO cannula with tip in the mid right atrium. Femoral approach transvenous pacer wire with tip in the right ventricle. ETT with tip in the mid thoracic trachea. NG tube with tip in the stomach. Remainder unremarkable. Zenaida Michel MD DIAGNOSTIC IMAGING ORDERABLES Fi nal Result * (ABNORMAL) POC GLUCOSE (06/13/2025 5:17 AM CDT) GLUCOSE POC 140(H) 74 - 99 mg/dL 06/13/2025 5:17 AM CDT [facility] SPECIMEN SOURCE, GLUCOSE POC Arterial 06/13/2025 5:17 AM CDT [facility] Blood, whole 06/13/2025 5:17 AM CDT 06/13/2025 5:31 AM CDT Zenaida Michel MD POINT OF CARE TESTING Final Resu lt [facility] CLIA # [id number] [address] [place] [address] * EKG 12-LEAD (06/13/2025 4:56 AM CDT) 06/13/2025 4:56 AM CDT Narrative INTERFACE SYSTEM - 06/13/2025 12:54 PM CDT [address] [address] Test Date: 2025-06-13 [facility] Department: 12 Room: [address] [place] [address] Gender: Male Compliance Representative: [email or web address] : 1960 Requested By: Order Number: [id number] Reading MD: Smitha Vora Measurements Intervals Malin Rate: 76 P: 0 GA: 0 QRS: -72 QRSD: 156 T: 103 QT: 532 QTc: 598 Interpretive Statements Ventricular-paced rhythm Abnormal ECG Electronically Signed On 06-13-2025 12:54:41 CDT by Smitha Vora Procedure Note Provider, Historical - 06/13/2025 [place] [address] Test Date: 2025-06-13 Pat Name: ISAAC FRANKLIN Department: 12 Room: [address] [place] [address] Gender: Male Compliance Representative: [email or web address] : 1960 Requested By: Order Number: [id number] Reading MD: Smitha Vora Measurements Intervals Malin Rate: 76 P: 0 GA: 0 QRS: -72 QRSD: 156 T: 103 QT: 532 QTc: 598 Interpretive Statements Ventricular-paced rhythm Abnormal ECG Electronically Signed On 06-13-2025 12:54:41 CDT by Smitha Vora us Love Gonzalez BOTTOM SAW OPERATOR ECG ORDERABLES Final Result Performing Organization Address City/[facility] de Phone Number INTERFACE SYSTEM Refer to clinic/hospital department * (ABNORMAL) POC GLUCOSE (06/13/2025 4:08 AM CDT) GLUCOSE POC 133(H) 74 - 99 mg/dL 06/13/2025 4:08 AM CDT [facility] SPECIMEN SOURCE, GLUCOSE POC Arterial 06/13/2025 4:08 AM CDT [facility] Blood, whole 06/13/2025 4:08 AM CDT 06/13/2025 4:23 AM CDT Zenaida Michel MD POINT OF CARE TESTING Final Resu lt Performing Organization Address [facility] de Phone Number [facility] CLIA # [id number] [address] [place] [address] * HAPTOGLOBIN (06/13/2025 4:04 AM CDT) HAPTOGLOBIN 78 30 - 200 mg/dL 06/13/2025 4:46 AM CDT [facility] Blood Venipuncture / Unknown 06/13/2025 4:04 AM CDT 06/13/2025 4:10 AM CDT us Zenaida Michel MD CHEMISTRY ORDERABLES Final Resul t Performing Organization Address [facility] Co de Phone Number [facility] CLIA # [id number] [address] [place] [phone] * UNFRACTIONATED HEPARIN MONITORING (06/13/2025 4:04 AM CDT) [facility] ANTI-XA UNFRAC HEP 0.28 See Interpretation IU/mL 06/13/2025 4:27 AM CDT [facility] Blood Venipuncture / Unknown 06/13/2025 4:04 AM CDT 06/13/2025 4:09 AM CDT Narrative [facility] - 06/13/2025 4:27 AM CDT Therapeutic Range: PT/DVT Heparin Protocol 0.3 - 0.7 IU/ml Cardiac Heparin Protocol 0.3 - 0.6 IU/ml The reference range for this test is specific to the anticoagulant and is not appropriate for monitoring patients on a DOAC protocol. Zenaida Michel MD HEMATOLOGY ORDERABLES Final Resu lt Performing Organization Address City/[facility]/ZIP Co de Phone Number [facility] CLIA # [id number] [facility] [address] * (ABNORMAL) LACTATE DEHYDROGENASE (06/13/2025 4:04 AM CDT) [facility] LD (LACTATE DEHYDROGENASE) 840(H) 135 - 225 U/L 06/13/2025 4:46 AM CDT [facility] Blood Venipuncture / Unknown 06/13/2025 4:04 AM CDT 06/13/2025 4:10 AM CDT Zenaida Michel MD CHEMISTRY ORDERABLES Final Resul t Performing Organization Address City/[facility]/ZIP Co de Phone Number [facility] CLIA # [id number] [address] [address] * (ABNORMAL) PHOSPHORUS (06/13/2025 4:04 AM CDT) PHOSPHORUS 4.9(H) 2.5 - 4.5 mg/dL 06/13/2025 4:48 AM CDT [facility] Blood Venipuncture / Unknown 06/13/2025 4:04 AM CDT 06/13/2025 4:10 AM CDT Zenaida Michel MD CHEMISTRY ORDERABLES Final Resul t Performing Organization Address [facility] Co de Phone Number [facility] CLIA # [id number] [address] [address] * MAGNESIUM LEVEL (06/13/2025 4:04 AM CDT) MAGNESIUM 1.9 1.6 - 2.4 mg/dL 06/13/2025 4:48 AM CDT [facility] Blood Venipuncture / Unknown 06/13/2025 4:04 AM CDT 06/13/2025 4:10 AM CDT Zenaida Michel MD CHEMISTRY ORDERABLES Final Resul t Performing Organization Address [facility] Phone Number [facility] CLIA # [id number] [address] [address] * (ABNORMAL) COMPREHENSIVE METABOLIC PANEL (06/13/2025 4:04 AM CDT) SODIUM 141 136 - 145 mmol/L 06/13/2025 4:46 AM CDT [facility] POTASSIUM 4.4 3.5 - 5.1 mmol/L 06/13/2025 4:46 AM CDT [facility] CHLORIDE 107 98 - 107 mmol/L 06/13/2025 4:46 AM CDT [facility] CO2 24 22 - 29 mmol/L 06/13/2025 4:46 AM [facility] CAL[facility] 8.6(L) 8.8 - 10.2 mg/dL 06/13/2025 4:46 AM [facility] BUN 24(H) 8 - 23 mg/dL 06/13/2025 4:46 AM [facility] CREATININE 0.86 0.67 - 1.17 mg/dL 06/13/2025 4:46 AM [facility] GLUCOSE 149(H) 74 - 99 mg/dL 06/13/2025 4:46 AM [facility] TOTAL PROTEIN 5.0(L) 6.4 - 8.3 g/dL 06/13/2025 4:46 AM [facility] ALBUMIN 3.0(L) 3.5 - 5.2 g/dL 06/13/2025 4:46 AM [facility] BILIRUBIN TOTAL 0.5 0.0 - 1.0 mg/dL 06/13/2025 4:46 AM [facility] ALKALINE PHOSPHATASE 62 40 - 129 U/L 06/13/2025 4:46 AM [facility] AST 246(H) 10 - 50 U/L 06/13/2025 4:46 AM [facility] ALT 125(H) <=50 U/L 06/13/2025 4:46 AM [facility] GFR >60 >=60 mL/min/1.7 3 sq meter 06/13/2025 4:46 AM [facility] Comment:eGFR calculated with 2020 CKD-EPI equation. Vegetarian diet, extremely high or low muscle mass, and may affect results. Cystatin C with Glomerular Filtration Rate is a suitable alternative for these patients. ANION GAP 10 9 - 20 mmol/L 06/13/2025 4:46 AM [facility] Blood Venipuncture / Unknown 06/13/2025 4:04 AM CDT 06/13/2025 4:10 AM T us Zenaida Michel MD CHEMISTRY ORDERABLES Final Resul t [facility] CLIA # [id number] [address] [address] [place] [address] * (ABNORMAL) CBC WITH DIFFERENTIAL (06/13/2025 4:04 AM CDT) WBC 15.4(H) 4.8 - 10.8 K/uL 06/13/2025 4:12 AM CDT [facility] RBC 3.13(L) 4.60 - 6.20 M/uL 06/13/2025 4:12 AM CDT [facility] HEMOGLOBIN 9.9(L) 14.0 - 18.0 g/dL 06/13/2025 4:12 AM CDT [facility] HEMATOCRIT 28.8(L) 41.0 - 53.0 % 06/13/2025 4:12 AM CDT [facility] MCV 92.0 84.0 - 103.0 fL 06/13/2025 4:12 AM CDT [facility] MCH 31.6 27.0 - 34.0 pg 06/13/2025 4:12 AM CDT [facility] MCHC 34.4 30.0 - 35.0 g/dL 06/13/2025 4:12 AM CDT [facility] PLATELETS 154 140 - 440 K/uL 06/13/2025 4:12 AM CDT [facility] MPV 9.5 8.9 - 12.8 fL 06/13/2025 4:12 AM CDT [facility] RDW 14.4 11.0 - 14.5 % 06/13/2025 4:12 AM CDT [facility] RDW-STDEV 48.2 37.0 - 54.0 fL 06/13/2025 4:12 AM CDT [facility] NEUTROPHILS 78(H) 42 - 75 % 06/13/2025 4:12 AM CDT [facility] LYMPHOCYTES 14(L) 24 - 44 % 06/13/2025 4:12 AM CDT [facility] MONOCYTES 7 2 - 10 % 06/13/2025 4:12 AM CDT [facility] EOSINOPHILS 0 0 - 7 % 06/13/2025 4:12 AM CDT [facility] BASOPHILS 0 0 - 1 % 06/13/2025 4:12 AM CDT [facility] IMMATURE GRANULOCYTES 1 0 - 2 % 06/13/2025 4:12 AM CDT [facility] NEUTROPHIL ABSOLUTE 11.99(H) 2.00 - 8.00 K/uL 06/13/2025 4:12 AM CDT [facility] LYMPHOCYTE ABSOLUTE 2.11 1.20 - 4.00 K/uL 06/13/2025 4:12 AM CDT [facility] MONOCYTE ABSOLUTE 1.13(H) 0.10 - 0.60 K/uL 06/13/2025 4:12 AM CDT [facility] EOSINOPHIL ABSOLUTE 0.02 0.00 - 0.70 K/uL 06/13/2025 4:12 AM CDT [facility] BASOPHILS ABSOLUTE 0.05 0.00 - 0.20 K/uL 06/13/2025 4:12 AM CDT [facility] IMMATURE GRANULOCYTES ABSOLUTE 0.09 0.00 - 0.10 K/uL 06/13/2025 4:12 AM CDT [facility] SMEAR REVIEWED: NA - Not Applicable 06/13/2025 4:12 AM T [facility] Blood Venipuncture / Unknown 06/13/2025 4:04 AM CDT 06/13/2025 4:09 AM CDT us Zenaida Michel MD HEMATOLOGY ORDERABLES Final Resu lt [facility] CLIA # [id number] [address] [address] [place] [address] * (ABNORMAL) POC LACTIC ACID (06/13/2025 3:08 AM CDT) LACTIC ACID POC 2.2(H) <=2.0 mmol/L 06/13/2025 3:08 AM CDT [facility] SPECIMEN SOURCE, GASES POC Arterial 06/13/2025 3:08 AM CDT [facility] PUNC SITE POC No Charge 06/13/2025 3:08 AM CDT [facility] Blood 06/13/2025 3:08 AM CDT 06/13/2025 3:10 AM CDT [facility] - 06/13/2025 3:08 AM CDT References ranges displayed are for Arterial samples. Zenaida Michel MD POINT OF CARE TESTING Final Resu lt [facility] CLAR # [id number] [address] [place] [address] * (ABNORMAL) BLOOD GAS ARTERIAL (06/13/2025 3:08 AM CDT) Pathologist [facility] PH BLOOD POC 7.45 7.35 - 7.45 06/13/2025 3:08 AM T [facility] PCO2 POC 38 35 - 45 mm Hg 06/13/2025 3:08 AM T [facility] PO2 POC 211(H) 80 - 105 mm Hg 06/13/2025 3:08 AM T [facility] HCO3 (CALC) POC 26 22 - 26 mmol/L 06/13/2025 3:08 AM T [facility] HEMOGLOBIN POC 10.7(L) 12.0 - 18.0 g/dL 06/13/2025 3:08 AM T [facility] BASE EXCESS POC 2 -2 - 3 mmol/L 06/13/2025 3:08 AM T [facility] O2 SATURATION POC 99(H) 95 - 98 % 025 3:08 AM T [facility] SODIUM POC 136(L) 138 - 146 mmol/L 06/13/2025 3:08 AM [facility] POTASSIUM POC 4.6 3.5 - 4.9 mmol/L 06/13/2025 3:08 AM [facility] HEMATOCRIT POC 32(L) 38 - 51 % 06/13/2025 3:08 AM [facility] PH TEMP CORRECT 7.45 7.35 - 7.45 06/13/2025 3:08 AM [facility] PCO2 TEMP CORRECT 38 35 - 45 mm Hg 06/13/2025 3:08 AM [facility] PO2 TEMP CORRECT 211(H) 80 - 105 mm Hg 06/13/2025 3:08 AM [facility] SPECIMEN SOURCE, GASES POC Arterial 06/13/2025 3:08 AM [facility] CALCIUM IONIZED POC 5.0 4.8 - 5.2 mg/dL 06/13/2025 3:08 AM [facility] TCO2 (CALC) POC 28(H) 23 - 27 mmol/L 06/13/2025 3:08 AM [facility] FIO2 40.0 21.0 - 100.0 % 06/13/2025 3:08 AM [facility] Comment:FIO2 values reported <21.0 indicate O2 flow in Liters/minute. Values >/= 21.0 indicate percent O2. P/F RATIO POC 528 06/13/2025 3:08 AM [facility] Comment: P/F Ratio Interpretation ARDS SEVERITY PaO2/FiO2 Mild 200-300 Moderate 100-200 Severe <100 PEEP POC 10 06/13/2025 3:08 AM [facility] PUNC SITE POC No Charge 06/13/2025 3:08 AM [facility] PATIENT'S TEMPERATURE POC 37.0 degrees 06/13/2025 3:08 AM [facility] SWEEP POC 6 L/min 06/13/2025 3:08 AM [facility] ECMO FIO2 POC 100 % 06/13/2025 3:08 AM CDT [facility] ECMO FLOW POC 5 L/min 06/13/2025 3:08 AM CDT [facility] Blood, arterial 06/13/2025 3 :08 AM CDT 06/13/2025 3:10 AM CDT Zenaida Michel MD ABG ORDERABLES Final Result Performing Organization Address [facility]/ZIP Co de Phone Number [facility] CLIA # [id number] [address] [address] [place] [address] * (ABNORMAL) POC GLUCOSE (06/13/2025 3:07 AM CDT) GLUCOSE POC 145(H) 74 - 99 mg/dL 06/13/2025 3:07 AM CDT [facility] SPECIMEN SOURCE, GLUCOSE POC Arterial 06/13/2025 3:07 AM CDT [facility] Blood, whole 06/13/2025 3:07 AM CDT 06/13/2025 3:27 AM CDT Zenaida Michel MD POINT OF CARE TESTING Final Resu lt Performing Organization Address [facility] Co de Phone Number [facility] CLIA # [id number] [address] [address] * (ABNORMAL) POC GLUCOSE (06/13/2025 2:14 AM CDT) GLUCOSE POC 146(H) 74 - 99 mg/dL 06/13/2025 2:14 AM CDT [facility] SPECIMEN SOURCE, GLUCOSE POC Arterial 06/13/2025 2:14 AM CDT [facility] Blood, whole 06/13/2025 2:14 AM CDT 06/13/2025 2:24 AM CDT Zenaida Michel MD POINT OF CARE TESTING Final Resu lt Performing Organization Address [facility]/ZIP Co de Phone Number [facility] CLIA # [id number] [address] [facility] [place] [address] * (ABNORMAL) POC GLUCOSE (06/13/2025 1:06 AM CDT) GLUCOSE POC 173(H) 74 - 99 mg/dL 06/13/2025 1:06 AM CDT [facility] SPECIMEN SOURCE, GLUCOSE POC Arterial 06/13/2025 1:06 AM CDT [facility] Blood, whole 06/13/2025 1:06 AM CDT 06/13/2025 1:14 AM CDT Zenaida Michel MD POINT OF CARE TESTING Final Resu lt Performing Organization Address [facility] Co de Phone Number [facility] CLIA # [id number] [address] [address] * (ABNORMAL) POC GLUCOSE (06/13/2025 12:14 AM CDT) GLUCOSE POC 182(H) 74 - 99 mg/dL 06/13/2025 12:14 AM CDT [facility] SPECIMEN SOURCE, GLUCOSE POC Arterial 06/13/2025 12:14 AM CDT [facility] Blood, whole 06/13/2025 12:1 4 AM CDT 06/13/2025 12:57 AM CDT Zenaida Michel MD POINT OF CARE TESTING Final Resu lt Performing Organization Address [facility]/ZIP Co de Phone Number [facility] CLIA # [id number] [address] [place] [address] * (ABNORMAL) POC LACTIC ACID (06/12/2025 11:09 PM CDT) [facility] LACTIC ACID POC 3.8(H) <=2.0 mmol/L 06/12/2025 11:09 PM CDT [facility] SPECIMEN SOURCE, GASES POC Arterial 06/12/2025 11:09 PM CDT [facility] PUNC SITE POC No Charge 06/12/2025 11:09 PM CDT [facility] Blood 06/12/2025 11:0 9 PM CDT 06/12/2025 11:11 PM CDT Narrative [facility] - 06/12/2025 11:09 PM CDT References ranges displayed are for Arterial samples. us Zenaida Michel MD POINT OF CARE TESTING Final Resu lt [facility] CLIA # [id number] [address] [address] [place] [address] * (ABNORMAL) BLOOD GAS ARTERIAL (06/12/2025 11:09 PM CDT) [facility] PH BLOOD POC 7.46(H) 7.35 - 7.45 06/12/2025 11:09 PM CDT [facility] PCO2 POC 32(L) 35 - 45 mm Hg 06/12/2025 11:09 PM CDT [facility] PO2 POC 148(H) 80 - 105 mm Hg 06/12/2025 11:09 PM CDT [facility] HCO3 (CALC) POC 23 22 - 26 mmol/L 06/12/2025 11:09 PM CDT [facility] HEMOGLOBIN POC 11.2(L) 12.0 - 18.0 g/dL 06/12/2025 11:09 PM CDT [facility] BASE EXCESS POC -1 -2 - 3 mmol/L 06/12/2025 11:09 PM [facility] O2 SATURATION POC 99(H) 95 - 98 % 025 11:09 PM [facility] SODIUM POC 136(L) 138 - 146 mmol/L 06/12/2025 11:09 PM [facility] POTASSIUM POC 4.5 3.5 - 4.9 mmol/L 06/12/2025 11:09 PM [facility] HEMATOCRIT POC 34(L) 38 - 51 % 06/12/2025 11:09 PM [facility] PH TEMP CORRECT 7.46(H) 7.35 - 7.45 06/12/2025 11:09 PM [facility] PCO2 TEMP CORRECT 32(L) 35 - 45 mm Hg 06/12/2025 11:09 PM [facility] PO2 TEMP CORRECT 148(H) 80 - 105 mm Hg 06/12/2025 11:09 PM [facility] SPECIMEN SOURCE, GASES POC Arterial 06/12/2025 11:09 PM [facility] CALCIUM IONIZED POC 5.3(H) 4.8 - 5.2 mg/dL 06/12/2025 11:09 PM [facility] TCO2 (CALC) POC 24 23 - 27 mmol/L 06/12/2025 11:09 PM [facility] FIO2 40.0 21.0 - 100.0 % 06/12/2025 11:09 PM [facility] Comment:FIO2 values reported <21.0 indicate O2 flow in Liters/minute. Values >/= 21.0 indicate percent O2. P/F RATIO POC 370 06/12/2025 11:09 PM [facility] Comment: P/F Ratio Interpretation ARDS SEVERITY PaO2/FiO2 Mild 200-300 Moderate 100-200 Severe <100 PEEP POC 10 06/12/2025 11:09 PM [facility] PUNC SITE POC No Charge 06/12/2025 11:09 PM [facility] PATIENT'S TEMPERATURE POC 37.0 degrees 06/12/2025 11:09 PM CDT [facility] SWEEP POC 8 L/min 06/12/2025 11:09 PM CDT [facility] ECMO FIO2 POC 100 % 06/12/2025 11:09 PM CDT [facility] ECMO FLOW POC 5 L/min 06/12/2025 11:09 PM CDT [facility] Blood, arterial 06/12/2025 1 1:09 PM CDT 06/12/2025 11:11 PM CDT Zenaida Michel MD ABG ORDERABLES Final Result Performing Organization Address [facility]/ZIP Co de Phone Number [facility] CLIA # [id number] [address] [address] * (ABNORMAL) POC GLUCOSE (06/12/2025 11:07 PM CDT) GLUCOSE POC 196(H) 74 - 99 mg/dL 06/12/2025 11:07 PM CDT [facility] SPECIMEN SOURCE, GLUCOSE POC Arterial 06/12/2025 11:07 PM CDT [facility] Blood, whole 06/12/2025 11:0 7 PM CDT 06/12/2025 11:22 PM CDT Zenaida Michel MD POINT OF CARE TESTING Final Resu lt [facility] CLIA # [id number] [address] [address] * (ABNORMAL) POC GLUCOSE (06/12/2025 10:13 PM CDT) GLUCOSE POC 206(H) 74 - 99 mg/dL 06/12/2025 10:13 PM CDT [facility] SPECIMEN SOURCE, GLUCOSE POC Arterial 06/12/2025 10:13 PM CDT [facility] Blood, whole 06/12/2025 10:1 3 PM CDT 06/12/2025 10:20 PM CDT us Zenaida Michel MD POINT OF CARE TESTING Final Resu lt [facility] CLIA # [id number] [address] [id number] * EKG 12-LEAD (06/12/2025 9:57 PM CDT) 06/12/2025 9:57 PM CDT Narrative INTERFACE SYSTEM - 06/13/2025 12:[address] [address] Test Date: 2025-06-12 Pat Name: ISAAC NOEMI Department: 12 Room: [address] [place] [address] Gender: Male Compliance Representative: [email or web address] : 1960 Requested By: Order Number: [id number] Terra MD: Smitha Vora Measurements Intervals Malin Rate: 76 P: 0 GA: 0 QRS: -80 QRSD: 154 T: 106 QT: 492 QTc: 553 Interpretive Statements Ventricular-paced rhythm Abnormal ECG Electronically Signed On 06-13-2025 12:52:52 CDT by Smitha Vora Procedure Note Provider, Historical - 06/13/[address] [address] Test Date: 2025-06-12 Pat [facility] Department: 12 Room: [address] [place] [address] Gender: Male Compliance Representative: [email or web address] : 1960 Requested By: Order Number: [id number] Terra SANTANA: Smitha Vora Measurements Intervals Malin Rate: 76 P: 0 GA: 0 QRS: -80 QRSD: 154 T: 106 QT: 492 QTc: 553 Interpretive Statements Ventricular-paced rhythm Abnormal ECG Electronically Signed On 06-13-2025 12:52:52 CDT by Smitha Vora Zenaida Michel MD ECG ORDERABLES Final Result Performing Organization Address City/[facility] Co de Phone Number INTERFACE SYSTEM Refer to clinic/hospital department * UNFRACTIONATED HEPARIN MONITORING (06/12/2025 9:27 PM CDT) Pathologist [facility] [place] ANTI-XA UNFRAC HEP 0.19 See Interpretation IU/mL 06/12/2025 9:59 PM CDT [facility] Blood Venipuncture / Unknown 06/12/2025 9:27 PM CDT 06/12/2025 9:39 PM CDT Narrative [facility] - 06/12/2025 9:59 PM CDT Therapeutic Range: PT/DVT Heparin Protocol 0.3 - 0.7 IU/ml Cardiac Heparin Protocol 0.3 - 0.6 IU/ml The reference range for this test is specific to the anticoagulant and is not appropriate for monitoring patients on a DOAC protocol. Zenaida Michel MD HEMATOLOGY ORDERABLES Final Resu lt Performing Organization Address [facility] de Phone Number [facility] CLIA # [id number] [address] [place] [address] * (ABNORMAL) POC GLUCOSE (06/12/2025 9:09 PM CDT) [facility] GLUCOSE POC 220(H) 74 - 99 mg/dL 06/12/2025 9:09 PM CDT [facility] SPECIMEN SOURCE, GLUCOSE POC Arterial 06/12/2025 9:09 PM CDT [facility] Blood, whole 06/12/2025 9:09 PM CDT 06/12/2025 9:36 PM CDT Zenaida Michel MD POINT OF CARE TESTING Final Resu lt Performing Organization Address City/[facility]/ZIP Co de Phone Number [facility] NANCY # [id number] [address] [place] [address] * INSERT MIDLINE IV (06/12/2025 8:49 PM CDT) Rufina Linda RN - 06/12/2025 8:49 PM CDT Rufina ePlayo RN 06/12/2025 8:52 PM VASCULAR ACCESS NOTE Midline PATIENT NAME: Isaac Franklin DATE OF : 1960 CSN: [id number] DATE: 06/12/2025 Room: [address] [place] [address] Admit Date: 06/12/2025 Hospital day: LOS: 0 days LINE STATUS: A Midline catheter was successfully inserted and can be used Adult Midline Catheter: Single Lumen 06/12/252024 Left: basilic vein (Active) 06/12/252024 basilic vein Earliest Known Present: Present on Admission: No Orientation: Left: Size: Number of Insertion Attempts: 1 Insertion: Patient Tolerance: tolerated well;appears comfortable Insertion: Pain Prevention: distraction Power Injectable Compatable: Yes Earliest Known Removed: Removal Indication: Removal Interventions: *Procedural Assist Insertion of Midline catheter WO SQ port >5 yrs 06/12/252024 Inserted Catheter Length (cm) 06/12/252024 Midline Catheter (WDL) WDL 06/12/252024 Extremity Circumference, Mid-Upper (cm) 33 06/12/252024 Patency flushes w/o difficulty;positive blood return 06/12/252024 Line Interventions system flushed;antimicrobial cap/s in place or applied to line and/or tubing 06/12/252024 Dressing Type/Securement antimicrobial patch/disc;transparent semipermeable dressing;secured with tape;site adhesive 06/12/252024 Dressing Changed Date 06/12/25 06/12/252024 Needleless Connector Changed Date 06/12/25 06/12/252024 Line Criteria Multiple infusions or med incompatibility 06/12/252024 Number of days: 0 MIDLINE PROCEDURE A Time Out process was completed prior to the midline placement procedure confirming correct patient, correct procedure site, and correct procedure being performed. Ultrasound assessment was performed to assess adequacy of vascular anatomy Adequate vessel was located with less than 45% catheter to vein ratio. Insertion site cleansed for 30 seconds with Chlora-prep Allowed to dry before initial needle stick. A midline was inserted in the basilic vein of the left upper arm using ultrasound guidance under sterile technique. 20 gauge, 10 cm Secure port adhesive used Yes 1 attempts 45 minutes required to complete procedure Positive blood return visualized. Neutral pressure cap applied Catheter flushed easily with 5ml of Normal Saline Transparent antimicrobial stabilization dressing applied Antimicrobial cap placed Dressing with date, time and initials of RN Patient tolerated procedure well. Primary care nurse notified of catheter placement CARE AND MAINTENANCE This is not a central line. NO BLOOD PRESSURES on arm with powerglide Requires physician order for blood draws The midline is indicated for use as a peripheral IV access only The midline is Power injectable - Securely apply neutral OR positive pressure cap when not in use. Use port protector cap when not in use Flush the catheter with 5 mL of normal saline every 12 hours or after each use, using a 10 mL or larger Flush the catheter with 10ml normal saline before blood draw and flush with 20 ml of normal saline after blood draws, using a 10ml or larger syringe. Waste 5ml prior to collection. Flush catheter once weekly when not in use(outpatient setting). Flush catheter using pulsating start-stop technique Always use 10ml syringe when flushing Do not forcefully flush against resistance Change dressing weekly and as needed using sterile technique VASCULAR ACCESS TEAM Peripheral IV insertion PERIPHERAL IV INSERTION Ultrasound assessment was performed to assess adequacy of vascular anatomy Adequate vessel was located Insertion site cleansed for 30 seconds with Chlora-prep. Allowed to dry before initial needle stick. A 20 Gauge 2 Inch peripheral IV was successfully placed using ultrasound guidance in the left, upper Arm Secure port adhesive used Yes 1 attempts 15 minutes required to complete procedure Positive blood return noted Neutral pressure cap applied Catheter Flushed with 5ml of Normal Saline Transparent dressing applied with date, time and initials of cowoker inserting. LDA documentation is contained in EMR flowsheet Patient tolerated well. Rufina Pelayo, RN Charles Hermelindo Magana MD IV THERAPY ORDERABLES Final Result * (ABNORMAL) POC GLUCOSE (06/12/2025 8:04 PM CDT) GLUCOSE POC 203(H) 74 - 99 mg/dL 06/12/2025 8:04 PM CDT [facility] SPECIMEN SOURCE, GLUCOSE POC Arterial 06/12/2025 8:04 PM CDT [facility] Blood, whole 06/12/2025 8:04 PM CDT 06/12/2025 8:13 PM CDT Zenaida Michel MD POINT OF CARE TESTING Final Resu lt Performing Organization Address [facility] Co de Phone Number [facility] CLIA # [id number] [address] [place] [address] * (ABNORMAL) POC LACTIC ACID (06/12/2025 7:21 PM CDT) Pathologist [facility] [place] LACTIC ACID POC 5.2(HH) <=2.0 mmol/L 06/12/2025 7:21 PM CDT [facility] SPECIMEN SOURCE, GASES POC Arterial 06/12/2025 7:21 PM CDT [facility] CRITICALTO POC RAMU WORKMAN RN 06/12/2025 7:21 PM CDT [facility] NAME POC [id number] 06/12/2025 7:21 PM CDT [facility] RESULTS POC Y 06/12/2025 7:21 PM CDT [facility] TIME POC 1922 06/12/2025 7:21 PM CDT [facility] PUNC SITE POC No Charge 06/12/2025 7:21 PM CDT [facility] Blood 06/12/2025 7:21 PM CDT 06/12/2025 7:29 PM CDT Narrative [facility] - 06/12/2025 7:21 PM CDT References ranges displayed are for Arterial samples. Zenaida Michel MD POINT OF CARE TESTING Final Resu lt Performing Organization Address City/[facility]/ZIP Co de Phone Number [facility] CLIA # [id number] [address] [address] [place] [address] * (ABNORMAL) BLOOD GAS ARTERIAL (06/12/2025 7:21 PM CDT) PH BLOOD POC 7.42 7.35 - 7.45 06/12/2025 7:21 PM [facility] PCO2 POC 30(L) 35 - 45 mm Hg 06/12/2025 7:21 PM [facility] PO2 POC 150(H) 80 - 105 mm Hg 06/12/2025 7:21 PM [facility] HCO3 (CALC) POC 20(L) 22 - 26 mmol/L 06/12/2025 7:21 PM [facility] HEMOGLOBIN POC 11.5(L) 12.0 - 18.0 g/dL 06/12/2025 7:21 PM [facility] BASE EXCESS POC -5(L) -2 - 3 mmol/L 06/12/2025 7:21 PM [facility] O2 SATURATION POC 99(H) 95 - 98 % 06/12/2025 7:21 PM [facility] SODIUM POC 137(L) 138 - 146 mmol/L 06/12/2025 7:21 PM [facility] POTASSIUM POC 4.1 3.5 - 4.9 mmol/L 06/12/2025 7:21 PM T [facility] HEMATOCRIT POC 35(L) 38 - 51 % 06/12/2025 7:21 PM [facility] PH TEMP CORRECT 7.42 7.35 - 7.45 06/12/2025 7:21 PM [facility] PCO2 TEMP CORRECT 30(L) 35 - 45 mm Hg 06/12/2025 7:21 PM [facility] PO2 TEMP CORRECT 150(H) 80 - 105 mm Hg 06/12/2025 7:21 PM [facility] SPECIMEN SOURCE, GASES POC Arterial 06/12/2025 7:21 PM CDT [facility] CRITICALTO POC RAMU WORKMAN RN 06/12/2025 7:21 PM CDT [facility] NAME POC [id number] 06/12/2025 7:21 PM CDT [facility] RESULTS POC Y 06/12/2025 7:21 PM CDT [facility] TIME POC 1922 06/12/2025 7:21 PM CDT [facility] CALCIUM IONIZED POC 5.6(H) 4.8 - 5.2 mg/dL 06/12/2025 7:21 PM CDT [facility] TCO2 (CALC) POC 20(L) 23 - 27 mmol/L 06/12/2025 7:21 PM CDT [facility] PUNC SITE POC No Charge 06/12/2025 7:21 PM T [facility] PATIENT'S TEMPERATURE POC 37.0 degrees 06/12/2025 7:21 PM T [facility] SWEEP POC 8 L/min 06/12/2025 7:21 PM T [facility] ECMO FIO2 POC 100 % 06/12/2025 7:21 PM T [facility] ECMO FLOW POC 5 L/min 06/12/2025 7:21 PM T [facility] Blood, arterial 06/12/2025 7 :21 PM CDT 06/12/2025 7:29 PM CDT us Zenaida Michel MD ABG ORDERABLES Final Result [facility] CLIA # [id number] [address] [place] [address] [place], [place] [address] * (ABNORMAL) POC GLUCOSE (06/12/2025 7:09 PM CDT) GLUCOSE POC 209(H) 74 - 99 mg/dL 06/12/2025 7:09 PM CDT [facility] SPECIMEN SOURCE, GLUCOSE POC Arterial 06/12/2025 7:09 PM CDT [facility] Blood, whole 06/12/2025 7:09 PM CDT 06/12/2025 7:16 PM CDT Zenaida Michel MD POINT OF CARE TESTING Final Resu lt [facility] CLIA # [id number] [address] [place], [place] [address] * BLOOD CULTURE (06/12/2025 6:53 PM CDT) BLOOD CULTURE No growth 06/18/2025 8:56 AM CDT [facility] Blood (Peripheral) Venipuncture / Unknown 06/12/2025 6:53 PM CDT 06/12/2025 6:58 PM CDT Zenaida Michel MD MICROBIOLOGY - GENERAL ORDERABLE S Final Result Performing Organization Address [facility]/ZIP Co de Phone Number [facility] CLIA # [id number] [address] [place], [place] [address] * BLOOD CULTURE (06/12/2025 6:49 PM CDT) BLOOD CULTURE No growth 06/18/2025 8:57 AM CDT [facility] Blood (Peripheral) Venipuncture / Unknown 06/12/2025 6:49 PM CDT 06/12/2025 6:58 PM CDT Zenaida Michel MD MICROBIOLOGY - GENERAL ORDERABLE S Final Result [facility] CLIA # [id number] [address] [address] [place] [address] * (ABNORMAL) POC GLUCOSE (06/12/2025 5:41 PM CDT) [facility] GLUCOSE POC 202(H) 74 - 99 mg/dL 06/12/2025 5:41 PM CDT [facility] SPECIMEN SOURCE, GLUCOSE POC Arterial 06/12/2025 5:41 PM CDT [facility] Blood, whole 06/12/2025 5:41 PM CDT 06/12/2025 5:49 PM CDT us Zenaida Michel MD POINT OF CARE TESTING Final Resu lt Performing Organization Address City/[facility]/ZIP Co de Phone Number [facility] CLIA # [id number] [address] [address] [place] [address] * (ABNORMAL) TROPONIN (06/12/2025 5:36 PM CDT) [facility] TROPONIN T, 5TH GEN 4,776(HH) <=15 ng/L 06/13/2025 9:16 AM CDT [facility] Blood Arterial / Unknown 5:36 PM CDT 06/12/2025 5:50 PM CDT Narrative [facility] - 06/13/2025 9:16 AM CDT Troponin elevated. us Prince Yordan SANTANA CHEMISTRY ORDERABLES Final Resul t [facility] CLIA # [id number] [address] [address] [place] [address] * HAPTOGLOBIN (06/12/2025 5:36 PM CDT) [facility] HAPTOGLOBIN 60 30 - 200 mg/dL 06/12/2025 6:29 PM CDT [facility] Blood Arterial / Unknown 5 5:36 PM CDT 06/12/2025 5:50 PM CDT Zenaida Michel MD CHEMISTRY ORDERABLES Final Resul t Performing Organization Address [facility] de Phone Number [facility] CLIA # [id number] [address] [address] [place] [address] * (ABNORMAL) PHOSPHORUS (06/12/2025 5:36 PM CDT) PHOSPHORUS 1.9(L) 2.5 - 4.5 mg/dL 06/12/2025 6:46 PM CDT [facility] Blood Arterial / Unknown 5 5:36 PM CDT 06/12/2025 5:50 PM CDT Narrative [facility] - 06/12/2025 6:46 PM CDT Verified by repeat Zenaida Michel MD CHEMISTRY ORDERABLES Final Resul t Performing Organization Address [facility] de Phone Number [facility] CLIA # [id number] [address] [address] * MAGNESIUM LEVEL (06/12/2025 5:36 PM CDT) MAGNESIUM 2.1 1.6 - 2.4 mg/dL 06/12/2025 6:46 PM CDT [facility] Blood Arterial / Unknown 5 5:36 PM CDT 06/12/2025 5:50 PM CDT Zenaida Michel MD CHEMISTRY ORDERABLES Final Resul t Performing Organization Address [facility] Co de Phone Number [facility] CLIA # [id number] [facility] [address] [place] [address] * (ABNORMAL) COMPREHENSIVE METABOLIC PANEL (06/12/2025 5:36 PM CDT) [facility] SODIUM 143 136 - 145 mmol/L 06/12/2025 6:29 PM T [facility] POTASSIUM 4.0 3.5 - 5.1 mmol/L 06/12/2025 6:29 PM T [facility] CHLORIDE 110(H) 98 - 107 mmol/L 06/12/2025 6:29 PM T [facility] CO2 20(L) 22 - 29 mmol/L 06/12/2025 6:29 PM [facility] CALCIUM 9.5 8.8 - 10.2 mg/dL 06/12/2025 6:29 PM [facility] BUN 20 8 - 23 mg/dL 06/12/2025 6:29 PM T [facility] CREATININE 1.03 0.67 - 1.17 mg/dL 06/12/2025 6:29 PM [facility] GLUCOSE 229(H) 74 - 99 mg/dL 06/12/2025 6:29 PM [facility] TOTAL PROTEIN 4.8(L) 6.4 - 8.3 g/dL 06/12/2025 6:29 PM [facility] ALBUMIN 2.6(L) 3.5 - 5.2 g/dL 06/12/2025 6:29 PM [facility] BILIRUBIN TOTAL 0.5 0.0 - 1.0 mg/dL 06/12/2025 6:29 PM [facility] ALKALINE PHOSPHATASE 66 40 - 129 U/L 06/12/2025 6:29 PM [facility] AST 265(H) 10 - 50 U/L 06/12/2025 6:29 PM [facility] ALT 140(H) <=50 U/L 06/12/2025 6:29 PM CDT [facility] GFR >60 >=60 mL/min/1.7 3 sq meter 06/12/2025 6:29 PM CDT [facility] Comment:eGFR calculated with 2020 CKD-EPI equation. Vegetarian diet, extremely high or low muscle mass, and may affect results. Cystatin C with Glomerular Filtration Rate is a suitable alternative for these patients. ANION GAP 13 9 - 20 mmol/L 06/12/2025 6:29 PM CDT [facility] Blood Arterial / Unknown 5:36 PM CDT 06/12/2025 5:50 PM CDT us Zenaida Michel MD CHEMISTRY ORDERABLES Final Resul t [facility] CLIA # [id number] [address] [place] [address] * (ABNORMAL) CBC WITHOUT DIFFERENTIAL (06/12/2025 5:36 PM CDT) WBC 19.4(H) 4.8 - 10.8 K/uL 06/12/2025 5:52 PM CDT [facility] RBC 3.37(L) 4.60 - 6.20 M/uL 06/12/2025 5:52 PM CDT [facility] HEMOGLOBIN 10.8(L) 14.0 - 18.0 g/dL 06/12/2025 5:52 PM CDT [facility] HEMATOCRIT 31.7(L) 41.0 - 53.0 % 06/12/2025 5:52 PM CDT [facility] MCV 94.1 84.0 - 103.0 fL 06/12/2025 5:52 PM CDT [facility] MCH 32.0 27.0 - 34.0 pg 06/12/2025 5:52 PM CDT [facility] MCHC 34.1 30.0 - 35.0 g/dL 06/12/2025 5:52 PM CDT [facility] PLATELETS 204 140 - 440 K/uL 06/12/2025 5:52 PM CDT [facility] MPV 9.4 8.9 - 12.8 fL 06/12/2025 5:52 PM CDT [facility] RDW 13.9 11.0 - 14.5 % 06/12/2025 5:52 PM CDT [facility] RDW-STDEV 48.3 37.0 - 54.0 fL 06/12/2025 5:52 PM CDT [facility] Blood Arterial / Unknown 5:36 PM CDT 06/12/2025 5:46 PM CDT us Zenaida Michel MD HEMATOLOGY ORDERABLES Final Resu lt [facility] CLIA # [id number] [address] [place] [address] * INSERT MIDLINE IV (06/12/2025 5:05 PM CDT) Narrative Anyi Nelson RN - 06/12/2025 5:05 PM CDT Anyi Nelson RN 06/12/2025 5:05 PM VASCULAR ACCESS NOTE Midline PATIENT NAME: Isaac Franklin DATE OF : 1960 CSN: [id number] DATE: 06/12/2025 Room: [address] [place] [address] Admit Date: 06/12/2025 Hospital day: LOS: 0 days LINE STATUS: A Midline catheter was successfully inserted and can be used Adult Midline Catheter: Single Lumen 06/12/25 1455 Right: cephalic vein (Active) 06/12/25 1455 cephalic vein Earliest Known Present: Present on Admission: No Orientation: Right: Size: Number of Insertion Attempts: 1 Insertion: Patient Tolerance: tolerated well Insertion: Pain Prevention: other (comment) Power Injectable Compatable: Yes Earliest Known Removed: Removal Indication: Removal Interventions: *Procedural Assist Insertion of Midline catheter WO SQ port >5 yrs 10/18/25 1704 Inserted Catheter Length (cm) 8 06/12/251703 Midline Catheter (WDL) WDL 06/12/251703 Extremity Circumference, Mid-Upper (cm) 31 06/12/251703 Patency flushes w/o difficulty;positive blood return 06/12/251703 Line Interventions antimicrobial cap/s in place or applied to line and/or tubing;system flushed;IV capped 06/12/251703 Dressing Type/Securement antimicrobial dressing;transparent dressing;secured w/ sterile tape strips;site adhesive 06/12/251703 Dressing Changed Date 06/12/25 06/12/251703 Needleless Connector Changed Date 06/12/25 06/12/251703 Line Criteria Multiple infusions or med incompatibility;Poor venous access 06/12/251703 Number of days: 0 MIDLINE PROCEDURE A Time Out process was completed prior to the midline placement procedure confirming correct patient, correct procedure site, and correct procedure being performed. Ultrasound assessment was performed to assess adequacy of vascular anatomy Adequate vessel was located with less than 45% catheter to vein ratio. Insertion site cleansed for 30 seconds with Chlora-prep Allowed to dry before initial needle stick. A midline was inserted in the Cephalic vein of the right upper arm using ultrasound guidance under sterile technique. 18 gauge, 8 cm Secure port adhesive used Yes 1 attempts 45 minutes required to complete procedure Positive blood return visualized. Neutral pressure cap applied Catheter flushed easily with 5ml of Normal Saline Transparent antimicrobial stabilization dressing applied Antimicrobial cap placed Dressing with date, time and initials of RN Patient tolerated procedure well. Primary care nurse notified of catheter placement Anyi Nelson RN CARE AND MAINTENANCE This is not a central line. NO BLOOD PRESSURES on arm with powerglide Requires physician order for blood draws The midline is indicated for use as a peripheral IV access only The midline is Power injectable - Securely apply neutral OR positive pressure cap when not in use. Use port protector cap when not in use Flush the catheter with 5 mL of normal saline every 12 hours or after each use, using a 10 mL or larger Flush the catheter with 10ml normal saline before blood draw and flush with 20 ml of normal saline after blood draws, using a 10ml or larger syringe. Waste 5ml prior to collection. Flush catheter once weekly when not in use(outpatient setting). Flush catheter using pulsating start-stop technique Always use 10ml syringe when flushing Do not forcefully flush against resistance Change dressing weekly and as needed using sterile technique Zenaida Michel MD IV THERAPY ORDERABLES Final Resu lt * (ABNORMAL) POC GLUCOSE (06/12/2025 4:23 PM CDT) [facility] GLUCOSE POC 217(H) 74 - 99 mg/dL 06/12/2025 4:23 PM CDT [facility] SPECIMEN SOURCE, GLUCOSE POC Arterial 06/12/2025 4:23 PM CDT [facility] Blood, whole 06/12/2025 4:23 PM CDT 06/12/2025 5:49 PM CDT Zenaida Michel MD POINT OF CARE TESTING Final Resu lt Performing Organization Address [facility]/ZIP Co de Phone Number [facility] CLIA # [id number] [address] * VERIFICATION BLOOD GROUP (06/12/2025 4:20 PM CDT) [facility] ABO GROUP O 06/12/2025 4:46 PM CDT [facility] RH (D) TYPE Positive 06/12/2025 4:46 PM CDT [facility] Blood Arterial / Unknown 4:20 PM CDT 06/12/2025 4:28 PM CDT Charles Magana MD BLOOD BANK ORDERABLES Final Result [facility] [facility] CLIA#[id number] [address] [place] [address], * (ABNORMAL) POC LACTIC ACID (06/12/2025 3:18 PM CDT) [facility] LACTIC ACID POC 6.2(HH) <=2.0 mmol/L 06/12/2025 3:18 PM CDT [facility] SPECIMEN SOURCE, GASES POC Arterial 06/12/2025 3:18 PM CDT [facility] CRITICALTO POC CARRI CLIFFORD RN 06/12/2025 3:18 PM CDT [facility] NAME POC [id number] 06/12/2025 3:18 PM CDT [facility] RESULTS POC Y 06/12/2025 3:18 PM CDT [facility] TIME POC 1519 06/12/2025 3:18 PM CDT [facility] PUNC SITE POC No Charge 06/12/2025 3:18 PM CDT [facility] Blood 06/12/2025 3:18 PM CDT 06/12/2025 3:21 PM CDT Narrative [facility] - 06/12/2025 3:18 PM CDT References ranges displayed are for Arterial samples. us Zenaida Michel MD POINT OF CARE TESTING Final Resu lt [facility] CLIA # [id number] [address] [place] [address] * (ABNORMAL) BLOOD GAS ARTERIAL (06/12/2025 3:18 PM CDT) [facility] PH BLOOD POC 7.27(L) 7.35 - 7.45 06/12/2025 3:18 PM CDT [facility] PCO2 POC 42 35 - 45 mm Hg 06/12/2025 3:18 PM CDT [facility] PO2 POC 182(H) 80 - 105 mm Hg 06/12/2025 3:18 PM CDT [facility] HCO3 (CALC) POC 19(L) 22 - 26 mmol/L 06/12/2025 3:18 PM CDT [facility] HEMOGLOBIN POC 13.1 12.0 - 18.0 g/dL 06/12/2025 3:18 PM [facility] BASE EXCESS POC -8(L) -2 - 3 mmol/L 06/12/2025 3:18 PM [facility] O2 SATURATION POC 100(H) 95 - 98 % 025 3:18 PM [facility] SODIUM POC 138 138 - 146 mmol/L 06/12/2025 3:18 PM [facility] POTASSIUM POC 3.5 3.5 - 4.9 mmol/L 06/12/2025 3:18 PM [facility] HEMATOCRIT POC 39 38 - 51 % 06/12/2025 3:18 PM [facility] PH TEMP CORRECT 7.27(L) 7.35 - 7.45 06/12/2025 3:18 PM [facility] PCO2 TEMP CORRECT 42 35 - 45 mm Hg 06/12/2025 3:18 PM [facility] PO2 TEMP CORRECT 182(H) 80 - 105 mm Hg 06/12/2025 3:18 PM [facility] SPECIMEN SOURCE, GASES POC Arterial 06/12/2025 3:18 PM [facility] CRITICALTO POC CARRI CLIFFORD, KALEB 06/12/2025 3:18 PM [facility] NAME POC [id number] 06/12/2025 3:18 PM [facility] RESULTS POC Y 06/12/2025 3:18 PM [facility] TIME POC 1519 06/12/2025 3:18 PM [facility] CALCIUM IONIZED POC 6.5(H) 4.8 - 5.2 mg/dL 06/12/2025 3:18 PM [facility] TCO2 (CALC) POC 21(L) 23 - 27 mmol/L 06/12/2025 3:18 PM [facility] FIO2 40.0 21.0 - 100.0 % 06/12/2025 3:18 PM CDT [facility] Comment:FIO2 values reported <21.0 indicate O2 flow in Liters/minute. Values >/= 21.0 indicate percent O2. P/F RATIO POC 455 06/12/2025 3:18 PM CDT [facility] Comment: P/F Ratio Interpretation ARDS SEVERITY PaO2/FiO2 Mild 200-300 Moderate 100-200 Severe <100 [facility] SITE POC No Charge 06/12/2025 3:18 PM CDT [facility] PATIENT'S TEMPERATURE POC 37.0 degrees 06/12/2025 3:18 PM CDT [facility] SWEEP POC 7 L/min 06/12/2025 3:18 PM CDT [facility] ECMO FIO2 POC 100 % 06/12/2025 3:18 PM CDT [facility] Blood, arterial 06/12/2025 3 :18 PM CDT 06/12/2025 3:21 PM CDT Zenaida Michel MD ABG ORDERABLES Final Result Performing Organization Address [facility]/ZIP Co de Phone Number [facility] CLIA # [id number] [address] [facility] [place] [address] * (ABNORMAL) POC GLUCOSE (06/12/2025 2:46 PM CDT) GLUCOSE POC 237(H) 74 - 99 mg/dL 06/12/2025 2:46 PM CDT [facility] SPECIMEN SOURCE, GLUCOSE POC Arterial 06/12/2025 2:46 PM CDT [facility] Blood, whole 06/12/2025 2:46 PM CDT 06/12/2025 2:53 PM CDT Zenaida Michel MD POINT OF CARE TESTING Final Resu lt Performing Organization Address City/[facility]/ZIP Co de Phone Number [facility] CLIA # [id number] [address] [address] * (ABNORMAL) LACTATE DEHYDROGENASE (06/12/2025 2:45 PM CDT) [facility] LD (LACTATE DEHYDROGENASE) 922(H) 135 - 225 U/L 06/12/2025 5:43 PM CDT [facility] Blood Arterial / Unknown 2:45 PM CDT 06/12/2025 2:59 PM CDT us Zenaida Michel MD CHEMISTRY ORDERABLES Final Resul t [facility] CLIA # [id number] [address] [place] [address] * (ABNORMAL) HEPATIC FUNCTION PANEL (06/12/2025 2:45 PM CDT) [facility] TOTAL PROTEIN 5.5(L) 6.4 - 8.3 g/dL 06/12/2025 3:43 PM CDT [facility] ALBUMIN 3.0(L) 3.5 - 5.2 g/dL 06/12/2025 3:43 PM CDT [facility] BILIRUBIN TOTAL 0.5 0.0 - 1.0 mg/dL 06/12/2025 3:43 PM CDT [facility] BILIRUBIN DIRECT 0.2 0.0 - 0.3 mg/dL 06/12/2025 3:43 PM CDT [facility] ALKALINE PHOSPHATASE 81 40 - 129 U/L 06/12/2025 3:43 PM CDT [facility] AST 326(H) 10 - 50 U/L 06/12/2025 3:43 PM CDT [facility] ALT 170(H) <=50 U/L 06/12/2025 3:43 PM CDT [facility] Blood Arterial / Unknown 2:45 PM CDT 06/12/2025 2:59 PM CDT Zenaida Michel MD CHEMISTRY ORDERABLES Final Resul t Performing Organization Address [facility] Co de Phone Number [facility] CLIA # [id number] [address] [place] [address] [place], [place] [address] * (ABNORMAL) POTASSIUM LEVEL (06/12/2025 2:45 PM CDT) POTASSIUM 3.3(L) 3.5 - 5.1 mmol/L 06/12/2025 3:43 PM CDT [facility] Blood Arterial / Unknown 2:45 PM CDT 06/12/2025 2:59 PM CDT Zenaida Michel MD CHEMISTRY ORDERABLES Final Resul t Performing Organization Address [facility] de Phone Number [facility] CLIA # [id number] [address] [address] [place], [place] [address] * (ABNORMAL) MAGNESIUM LEVEL (06/12/2025 1:42 PM CDT) MAGNESIUM 2.5(H) 1.6 - 2.4 mg/dL 06/12/2025 2:28 PM CDT [facility] Blood Arterial / Unknown 1:42 PM CDT 06/12/2025 1:50 PM CDT Zenaida Michel MD CHEMISTRY ORDERABLES Final Resul t Performing Organization Address [facility] de Phone Number [facility] CLIA # [id number] [address] [place] [address] * (ABNORMAL) BASIC METABOLIC PANEL (06/12/2025 1:42 PM CDT) SODIUM 141 136 - 145 mmol/L 06/12/2025 2:28 PM CDT [facility] POTASSIUM 3.2(L) 3.5 - 5.1 mmol/L 06/12/2025 2:28 PM CDT [facility] CHLORIDE 109(H) 98 - 107 mmol/L 06/12/2025 2:28 PM CDT [facility] CO2 17(L) 22 - 29 mmol/L 06/12/2025 2:28 PM CDT [facility] CALCIUM 10.8(H) 8.8 - 10.2 mg/dL 06/12/2025 2:28 PM CDT [facility] BUN 18 8 - 23 mg/dL 06/12/2025 2:28 PM CDT [facility] CREATININE 1.05 0.67 - 1.17 mg/dL 06/12/2025 2:28 PM CDT [facility] GLUCOSE 276(H) 74 - 99 mg/dL 06/12/2025 2:28 PM CDT [facility] GFR >60 >=60 mL/min/1. 73 sq meter 06/12/2025 2:28 PM CDT [facility] Comment:eGFR calculated with 2020 CKD-EPI equation. Vegetarian diet, extremely high or low muscle mass, and may affect results. Cystatin C with Glomerular Filtration Rate is a suitable alternative for these patients. ANION GAP 15 9 - 20 mmol/L 06/12/2025 2:28 PM CDT [facility] Blood Arterial / Unknown 1:42 PM CDT 06/12/2025 1:50 PM CDT us Zenaida Michel MD CHEMISTRY ORDERABLES Final Resul t [facility] CLIA # [id number] [address] [place] [address] [place] [address] * (ABNORMAL) UNFRACTIONATED HEPARIN MONITORING (06/12/2025 1:42 PM CDT) [facility] ANTI-XA UNFRAC HEP 0.92(HH) See Interpretation IU/mL 06/12/2025 2:05 PM CDT [facility] Blood Arterial / Unknown 1:42 PM CDT 06/12/2025 1:48 PM CDT Narrative [facility] - 06/12/2025 2:05 PM CDT Therapeutic Range: PT/DVT Heparin Protocol 0.3 - 0.7 IU/ml Cardiac Heparin Protocol 0.3 - 0.6 IU/ml The reference range for this test is specific to the anticoagulant and is not appropriate for monitoring patients on a DOAC protocol. us Zenaida Michel MD HEMATOLOGY ORDERABLES Final Resu lt Performing Organization Address [facility] Co de Phone Number [facility] CLIA # [id number] [address] [address] * (ABNORMAL) POC GLUCOSE (06/12/2025 12:48 PM CDT) [facility] GLUCOSE POC 262(H) 74 - 99 mg/dL 06/12/2025 12:48 PM CDT [facility] SPECIMEN SOURCE, GLUCOSE POC Arterial 06/12/2025 12:48 PM CDT [facility] Blood, whole 06/12/2025 12:4 8 PM CDT 06/12/2025 12:55 PM CDT us Zenaida Michel MD POINT OF CARE TESTING Final Resu lt Performing Organization Address [facility]/ZIP Co de Phone Number [facility] CLIA # [id number] [address] [place] [facility] [place] [address] * (ABNORMAL) POC LACTIC ACID (06/12/2025 12:23 PM CDT) Pathologist [facility] LACTIC ACID POC 6.3(HH) <=2.0 mmol/L 06/12/2025 12:23 PM CDT [facility] SPECIMEN SOURCE, GASES POC Arterial 06/12/2025 12:23 PM CDT [facility] CRITICALTO POC DR MICHEL 06/12/2025 12:23 PM CDT [facility] NAME POC [id number] 06/12/2025 12:23 PM CDT [facility] RESULTS POC Y 06/12/2025 12:23 PM CDT [facility] TIME POC 1224 06/12/2025 12:23 PM CDT [facility] PUNC SITE POC No Charge 06/12/2025 12:23 PM CDT [facility] Blood 06/12/2025 12:2 3 PM CDT 06/12/2025 12:25 PM CDT Narrative [facility] - 06/12/2025 12:23 PM CDT References ranges displayed are for Arterial samples. us Zenaida Michel MD POINT OF CARE TESTING Final Resu lt [facility] CLIA # [id number] [address] [place] [address] * (ABNORMAL) BLOOD GAS ARTERIAL (06/12/2025 12:23 PM CDT) Pathologist [facility] PH BLOOD POC 7.30(L) 7.35 - 7.45 06/12/2025 12:23 PM CDT [facility] PCO2 POC 37 35 - 45 mm Hg 06/12/2025 12:23 PM CDT [facility] PO2 POC 299(H) 80 - 105 mm Hg 06/12/2025 12:23 PM CDT [facility] HCO3 (CALC) POC 18(L) 22 - 26 mmol/L 06/12/2025 12:23 PM [facility] HEMOGLOBIN POC 13.5 12.0 - 18.0 g/dL 06/12/2025 12:23 PM [facility] BASE EXCESS POC -8(L) -2 - 3 mmol/L 06/12/2025 12:23 PM [facility] O2 SATURATION POC 100(H) 95 - 98 % 025 12:23 PM [facility] SODIUM POC 137(L) 138 - 146 mmol/L 06/12/2025 12:23 PM [facility] POTASSIUM POC 2.9(L) 3.5 - 4.9 mmol/L 06/12/2025 12:23 PM [facility] HEMATOCRIT POC 41 38 - 51 % 06/12/2025 12:23 PM [facility] PH TEMP CORRECT 7.30(L) 7.35 - 7.45 06/12/2025 12:23 PM [facility] PCO2 TEMP CORRECT 37 35 - 45 mm Hg 06/12/2025 12:23 PM [facility] PO2 TEMP CORRECT 299(H) 80 - 105 mm Hg 06/12/2025 12:23 PM [facility] SPECIMEN SOURCE, GASES POC Arterial 06/12/2025 12:23 PM [facility] CRITICALTO POC DR MICHEL 06/12/2025 12:23 PM [facility] NAME POC [id number] 06/12/2025 12:23 PM [facility] RESULTS POC Y 06/12/2025 12:23 PM [facility] TIME POC 1224 06/12/2025 12:23 PM [facility] CALCIUM IONIZED POC 6.7(HH) 4.8 - 5.2 mg/dL 06/12/2025 12:23 PM [facility] TCO2 (CALC) POC 19(L) 23 - 27 mmol/L 06/12/2025 12:23 PM [facility] FIO2 40.0 21.0 - 100.0 % 06/12/2025 12:23 PM CDT [facility] Comment:FIO2 values reported <21.0 indicate O2 flow in Liters/minute. Values >/= 21.0 indicate percent O2. P/F RATIO POC 748 06/12/2025 12:23 PM CDT [facility] Comment: P/F Ratio Interpretation ARDS SEVERITY PaO2/FiO2 Mild 200-300 Moderate 100-200 Severe <100 PEEP POC 10 06/12/2025 12:23 PM CDT [facility] PUNC SITE POC No Charge 06/12/2025 12:23 PM CDT [facility] PATIENT'S TEMPERATURE POC 37.0 degrees 06/12/2025 12:23 PM CDT [facility] SWEEP POC 6 L/min 06/12/2025 12:23 PM CDT [facility] ECMO FIO2 POC 100 % 06/12/2025 12:23 PM CDT [facility] Blood, arterial 06/12/2025 1 2:23 PM CDT 06/12/2025 12:25 PM CDT Zenaida Michel MD ABG ORDERABLES Final Result [facility] CLIA # [id number] [address] [place] [address] * XR PELVIS 1 OR 2 VW (06/12/2025 9:44 AM CDT) Anatomical Region Laterality Modality Pelvis Computed Radiogr aphy 06/12/2025 9:44 AM CDT Impressions 06/12/2025 9:54 AM CDT IMPRESSION: Atelectasis and/or infiltrate in the lower lungs bilaterally, more evident on the left. Small left pleural effusion. Intra-aortic balloon pump with radiopaque marker project over the aortic arch. Femoral approach ECMO cannula, this been pulled back with tip now in the mid right atrium. Transvenous pacer wire with tip projected over the region of the left ventricle. ETT with tip in the lower thoracic trachea. NG tube with tip below the diaphragm. Pulmonary venous hypertension. Remainder of the chest is unremarkable. Left femoral approach ECMO cannulas, one with tip at the level of the external iliac vasculature. Right femoral approach sheath with tip at the level of the external iliac vasculature. Orta catheter. Pelvic radiograph is otherwise unremarkable. Narrative 06/12/2025 9:54 AM CDT Exam: Radiographs: XR CHEST PA OR AP 1 VW, XR PELVIS 1 OR 2 VW Indication: ST elevation myocardial infarction (STEMI), unspecified artery; Cardiac arrest with ventricular fibrillation (CMS/HCC); Cardiac arrest with ventricular fibrillation (CMS/HCC); CHB (complete heart block); Laboratory test Comparison: Chest x-ray from earlier today Procedure Note Karl Izaguirre MD - 06/12/2025 Exam: Radiographs: XR CHEST PA OR AP 1 VW, XR PELVIS 1 OR [address]: [address] elevation myocardial infarction (STEMI), unspecified artery; Cardiac arrest with ventricular fibrillation (CMS/HCC); Cardiac arrest with ventricular fibrillation (CMS/HCC); CHB (complete heart block); Laboratory test Comparison: Chest x-ray from earlier today IMPRESSION: Atelectasis and/or infiltrate in the lower lungs bilaterally, more evident on the left. Small left pleural effusion. Intra-aortic balloon pump with radiopaque marker project over the aortic arch. Femoral approach ECMO cannula, this been pulled back with tip now in the mid right atrium. Transvenous pacer wire with tip projected over the region of the left ventricle. ETT with tip in the lower thoracic trachea. NG tube with tip below the diaphragm. Pulmonary venous hypertension. Remainder of the chest is unremarkable. Left femoral approach ECMO cannulas, one with tip at the level of the external iliac vasculature. Right femoral approach sheath with tip at the level of the external iliac vasculature. Orta catheter. Pelvic radiograph is otherwise unremarkable. Zenaida Michel MD DIAGNOSTIC IMAGING ORDERABLES Fi nal Result * (ABNORMAL) POTASSIUM LEVEL (06/12/2025 9:41 AM CDT) [facility] POTASSIUM 2.8(L) 3.5 - 5.1 mmol/L 06/12/2025 10:21 AM CDT [facility] Blood Arterial / Unknown 9:41 AM CDT 06/12/2025 9:53 AM CDT Zenaida Michel MD CHEMISTRY ORDERABLES Final Resul t Performing Organization Address [facility] de Phone Number [facility] CLIA # [id number] [address] [address] * (ABNORMAL) POC LACTIC ACID (06/12/2025 9:37 AM CDT) LACTIC ACID POC 8.1(HH) <=2.0 mmol/L 06/12/2025 9:37 AM CDT [facility] SPECIMEN SOURCE, GASES POC Arterial 06/12/2025 9:37 AM CDT [facility] CRITICALTO POC DR. MICHEL 06/12/2025 9:37 AM CDT [facility] NAME POC [id number] 06/12/2025 9:37 AM CDT [facility] RESULTS POC Y 06/12/2025 9:37 AM CDT [facility] TIME POC 938 06/12/2025 9:37 AM CDT [facility] PUN SITE POC No Charge 06/12/2025 9:37 AM CDT [facility] Blood 06/12/2025 9:37 AM CDT 06/12/2025 9:39 AM CDT Narrative [facility] - 06/12/2025 9:37 AM CDT References ranges displayed are for Arterial samples. us Zenaida Michel MD POINT OF CARE TESTING Final Resu lt Performing Organization Address [facility] Co de Phone Number [facility] CLIA # [id number] [address] [address] * (ABNORMAL) BLOOD GAS ARTERIAL (06/12/2025 9:37 AM [facility]) PH BLOOD POC 7.33(L) 7.35 - 7.45 06/12/2025 9:37 AM [facility] PCO2 POC 31(L) 35 - 45 mm Hg 06/12/2025 9:37 AM [facility] PO2 POC 160(H) 80 - 105 mm Hg 06/12/2025 9:37 AM [facility] HCO3 (CALC) POC 16(L) 22 - 26 mmol/L 06/12/2025 9:37 AM [facility] HEMOGLOBIN POC 13.7 12.0 - 18.0 g/dL 06/12/2025 9:37 AM [facility] BASE EXCESS POC -10(L) -2 - 3 mmol/L 06/12/2025 9:37 AM [facility] O2 SATURATION POC 100(H) 95 - 98 % 025 9:37 AM [facility] SODIUM POC 137(L) 138 - 146 mmol/L 06/12/2025 9:37 AM [facility] POTASSIUM POC 2.8(L) 3.5 - 4.9 mmol/L 06/12/2025 9:37 AM [facility] HEMATOCRIT POC 41 38 - 51 % 06/12/2025 9:37 AM [facility] PH TEMP CORRECT 7.33(L) 7.35 - 7.45 06/12/2025 9:37 AM [facility] PCO2 TEMP CORRECT 31(L) 35 - 45 mm Hg 06/12/2025 9:37 AM [facility] PO2 TEMP CORRECT 160(H) 80 - 105 mm Hg 06/12/2025 9:37 AM [facility] SPECIMEN SOURCE, GASES POC Arterial 06/12/2025 9:37 AM [facility] CRITICALTO POC DR. MICHEL 06/12/2025 9:37 AM [facility] NAME POC [id number] 06/12/2025 9:37 AM T [facility] RESULTS POC Y 06/12/2025 9:37 AM T [facility] TIME POC 938 06/12/2025 9:37 AM T [facility] CALCIUM IONIZED POC 6.8(HH) 4.8 - 5.2 mg/dL 06/12/2025 9:37 AM CDT [facility] TCO2 (CALC) POC 17(L) 23 - 27 mmol/L 06/12/2025 9:37 AM CDT [facility] FIO2 50.0 21.0 - 100.0 % 06/12/2025 9:37 AM T [facility] Comment:FIO2 values reported <21.0 indicate O2 flow in Liters/minute. Values >/= 21.0 indicate percent O2. P/F RATIO POC 320 06/12/2025 9:37 AM T [facility] Comment: P/F Ratio Interpretation ARDS SEVERITY PaO2/FiO2 Mild 200-300 Moderate 100-200 Severe <100 PEEP POC 10 06/12/2025 9:37 AM CDT [facility] PUNC SITE POC No Charge 06/12/2025 9:37 AM T [facility] PATIENT'S TEMPERATURE POC 37.0 degrees 06/12/2025 9:37 AM T [facility] SWEEP POC 5 L/min 06/12/2025 9:37 AM T [facility] ECMO FIO2 POC 100 % 06/12/2025 9:37 AM T [facility] Blood, arterial 06/12/2025 9 :37 AM CDT 06/12/2025 9:39 AM CDT us Zenaida Michel MD ABG ORDERABLES Final Result [facility] CLIA # [id number] [address] [address] [place] [address] * XR CHEST PA OR AP 1 VW (06/12/2025 9:17 AM CDT) Anatomical Region Laterality Modality Chest Computed Radiogr aphy 06/12/2025 9:18 AM CDT Impressions 06/12/2025 9:54 AM CDT IMPRESSION: Atelectasis and/or infiltrate in the lower lungs bilaterally, more evident on the left. Small left pleural effusion. Intra-aortic balloon pump with radiopaque marker project over the aortic arch. Femoral approach ECMO cannula, this been pulled back with tip now in the mid right atrium. Transvenous pacer wire with tip projected over the region of the left ventricle. ETT with tip in the lower thoracic trachea. NG tube with tip below the diaphragm. Pulmonary venous hypertension. Remainder of the chest is unremarkable. Left femoral approach ECMO cannulas, one with tip at the level of the external iliac vasculature. Right femoral approach sheath with tip at the level of the external iliac vasculature. Orta catheter. Pelvic radiograph is otherwise unremarkable. Narrative 06/12/2025 9:54 AM CDT Exam: Radiographs: XR CHEST PA OR AP 1 VW, XR PELVIS 1 OR 2 VW Indication: ST elevation myocardial infarction (STEMI), unspecified artery; Cardiac arrest with ventricular fibrillation (CMS/HCC); Cardiac arrest with ventricular fibrillation (CMS/HCC); CHB (complete heart block); Laboratory test Comparison: Chest x-ray from earlier today Procedure Note Karl Izaguirre MD - 06/12/2025 Exam: Radiographs: XR CHEST PA OR AP 1 VW, XR PELVIS 1 OR 2 VW Indication: ST elevation myocardial infarction (STEMI), unspecified artery; Cardiac arrest with ventricular fibrillation (CMS/HCC); Cardiac arrest with ventricular fibrillation (CMS/HCC); CHB (complete heart block); Laboratory test Comparison: Chest x-ray from earlier today IMPRESSION: Atelectasis and/or infiltrate in the lower lungs bilaterally, more evident on the left. Small left pleural effusion. Intra-aortic balloon pump with radiopaque marker project over the aortic arch. Femoral approach ECMO cannula, this been pulled back with tip now in the mid right atrium. Transvenous pacer wire with tip projected over the region of the left ventricle. ETT with tip in the lower thoracic trachea. NG tube with tip below the diaphragm. Pulmonary venous hypertension. Remainder of the chest is unremarkable. Left femoral approach ECMO cannulas, one with tip at the level of the external iliac vasculature. Right femoral approach sheath with tip at the level of the external iliac vasculature. Orta catheter. Pelvic radiograph is otherwise unremarkable. Zenaida Michel MD DIAGNOSTIC IMAGING ORDERABLES Fi nal Result * EKG 12-LEAD (06/12/2025 9:01 AM CDT) 06/12/2025 9:01 AM CDT Narrative INTERFACE SYSTEM - 06/12/2025 2:16 PM [address]T [address] [address] Test Date: 2025-06-12 Pat Name: ISAAC FRANKLIN Department: 12 Room: [address] [place] [address] Gender: Male Compliance Representative: [id number] : 1960 Requested By: Order Number: [id number] Reading MD: Smitha Vora Measurements Intervals Malin Rate: 61 P: 80 GA: 188 QRS: -5 QRSD: 92 T: 70 QT: 400 QTc: 402 Interpretive Statements Normal sinus rhythm Inferior infarct, age undetermined ST & T wave abnormality, consider anterolateral ischemia Abnormal ECG Electronically Signed On 06-12-2025 14:16:34 CDT by Smitha Vora Procedure Note Provider, Historical - 06/12/[address] [address] Test Date: 2025-06-12 Pat Name: ISAAC VELEZDelmi Department: 12 Room: [address] [place] [address] Gender: Male Compliance Representative: [id number] : 1960 Requested By: Order Number: [id number] Reading : Smitha Vora Measurements Intervals Malin Rate: 61 P: 80 GA: 188 QRS: -5 QRSD: 92 T: 70 QT: 400 QTc: 402 Interpretive Statements Normal sinus rhythm Inferior infarct, age undetermined ST & T wave abnormality, consider anterolateral ischemia Abnormal ECG Electronically Signed On 06-12-2025 14:16:34 CDT by Smitha Vora Prince Yordan SANTANA ECG ORDERABLES Final Result INTERFACE SYSTEM Refer to clinic/hospital department * (ABNORMAL) POC GLUCOSE (06/12/2025 7:35 AM CDT) GLUCOSE POC 316(H) 74 - 99 mg/dL 06/12/2025 7:35 AM CDT [facility] SPECIMEN SOURCE, GLUCOSE POC Arterial 06/12/2025 7:35 AM CDT [facility] Blood, whole 06/12/2025 7:35 AM CDT 06/12/2025 7:43 AM CDT Charles Magana MD POINT OF CARE TESTING Final Result Performing Organization Address City/[facility]/ZIP Co de Phone Number [facility] CLIA # [id number] [address] [place] [phone] * (ABNORMAL) POC LACTIC ACID (06/12/2025 7:33 AM CDT) LACTIC ACID POC 10.1(HH) <=2.0 mmol/L 06/12/2025 7:33 AM CDT [facility] SPECIMEN SOURCE, GASES POC Arterial 06/12/2025 7:33 AM CDT [facility] CRITICALTO POC DR. MICHEL 06/12/2025 7:33 AM CDT [facility] NAME POC [id number] 06/12/2025 7:33 AM CDT [facility] RESULTS POC Y 06/12/2025 7:33 AM CDT [facility] [facility] TIME POC 734 06/12/2025 7:33 AM CDT [facility] SITE POC No Charge 06/12/2025 7:33 AM CDT [facility] Blood 06/12/2025 7:33 AM CDT 06/12/2025 7:35 AM CDT Narrative [facility] - 06/12/2025 7:33 AM CDT References ranges displayed are for Arterial samples. Charles Magana MD POINT OF CARE TESTING Final Result [facility] CLIA # [id number] [address] [place] [id number] * (ABNORMAL) BLOOD GAS ARTERIAL (06/12/2025 7:33 AM CDT) PH BLOOD POC 7.35 7.35 - 7.45 06/12/2025 7:33 AM [facility] PCO2 POC 29(L) 35 - 45 mm Hg 06/12/2025 7:33 AM [facility] PO2 POC 187(H) 80 - 105 mm Hg 06/12/2025 7:33 AM [facility] HCO3 (CALC) POC 16(L) 22 - 26 mmol/L 06/12/2025 7:33 AM [facility] HEMOGLOBIN POC 13.9 12.0 - 18.0 g/dL 06/12/2025 7:33 AM [facility] BASE EXCESS POC -10(L) -2 - 3 mmol/L 06/12/2025 7:33 AM [facility] O2 SATURATION POC 100(H) 95 - 98 % 025 7:33 AM [facility] SODIUM POC 137(L) 138 - 146 mmol/L 06/12/2025 7:33 AM [facility] POTASSIUM POC 2.6(L) 3.5 - 4.9 mmol/L 06/12/2025 7:33 AM [facility] HEMATOCRIT POC 42 38 - 51 % 06/12/2025 7:33 AM [facility] PH TEMP CORRECT 7.35 7.35 - 7.45 06/12/2025 7:33 AM [facility] PCO2 TEMP CORRECT 29(L) 35 - 45 mm Hg 06/12/2025 7:33 AM [facility] PO2 TEMP CORRECT 187(H) 80 - 105 mm Hg 06/12/2025 7:33 AM [facility] SPECIMEN SOURCE, GASES POC Arterial 06/12/2025 7:33 AM [facility] CRITICALTO POC DR. MICHEL 06/12/2025 7:33 AM [facility] NAME POC [id number] 06/12/2025 7:33 AM [facility] RESULTS POC Y 06/12/2025 7:33 AM [facility] TIME POC 734 06/12/2025 7:33 AM [facility] CALCIUM IONIZED POC 7.0(HH) 4.8 - 5.2 mg/dL 06/12/2025 7:33 AM [facility] TCO2 (CALC) POC 17(L) 23 - 27 mmol/L 06/12/2025 7:33 AM [facility] FIO2 50.0 21.0 - 100.0 % 06/12/2025 7:33 AM [facility] Comment:FIO2 values reported <21.0 indicate O2 flow in Liters/minute. Values >/= 21.0 indicate percent O2. P/F RATIO POC 374 06/12/2025 7:33 AM [facility] Comment: P/F Ratio Interpretation ARDS SEVERITY PaO2/FiO2 Mild 200-300 Moderate 100-200 Severe <100 PEEP POC 10 06/12/2025 7:33 AM [facility] PUNC SITE POC No Charge 06/12/2025 7:33 AM [facility] PATIENT'S TEMPERATURE POC 37.0 degrees 06/12/2025 7:33 AM [facility] ECMO FIO2 POC 100 % 06/12/2025 7:33 AM [facility] Blood, arterial 06/12/2025 7 :33 AM CDT 06/12/2025 7:35 AM CDT Charles Hermelindo OLIVIA ORDERABLES Final Result [id number] [address] * ECHO COMPLETE - CONTRAST AND STRAIN IF INDICATED (06/12/2025 6:25 AM CDT) EJECTION FRACTION 48 INTERFACE SYSTEM 06/12/2025 5:49 AM CDT Narrative INTERFACE SYSTEM - 06/12/2025 8:50 AM CDT [facility] Cardiovascular Services Echocardiography Laboratory [address] [place] [id number] Transthoracic Echocardiography Patient: Noemi Study ID: ECHO CHANG Parnell Gender: M : 1960 Age: 65 Room: [facility] Study 06/12/2025 Pt Inpatient Date: Status: Study 05:49:12 AM CSN #: [id number] Time: Ordering:Prince Yordan Mail Officer: LEVI Indications and History: NC/ACS; Initial evaluation post NC. Labs, prior tests, procedures, and surgery: Catheterization (06/12/2025). There was a stenosis which was treated with a stent. An intra-aortic balloon pump was inserted. Extracorporeal membrane oxygenation (06/12/2025). Summary and Conclusion: - Left ventricle: The cavity size is normal. Wall thickness is upper normal to mildly increased. Global systolic function is mildly reduced. The estimated ejection fraction is 45-50%. For Epic reporting: the left ventricular ejection fraction is 48% by biplane method of disks. Hypokinesis of the entireinferior wall. Regional wall motion difficult to determine. Cannot assess LV diastolic function. The global longitudinal strain is -9% with limited tracking(Normal range is -18 to -25). - Right ventricle: The cavity size is probably at the upper limits of normal. Pacer wire or catheter noted in right ventricle. Systolic function is probably normal. - Pericardium: A mild circumferential pericardial effusion and/or fat pad was identified. - Limited quality study. No significant valcular abnormality identified on this study. Procedure information: No prior study is available for comparison. 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 Procedure: A transthoracic echocardiogram was performed. Image quality was adequate. The study was technically limited due to poor acoustic window availability, restricted patient mobility, and patient on ventilator. Scanning was performed from the parasternal, apical, subcostal, and suprasternal notch acoustic windows. There were no complications. Study components: M-mode, 2D, complete spectral Doppler, and color Doppler. Height: 172.7cm. Height: 68in. Weight: 97.1kg. Weight: 214lb. BMI: 32.5kg/m^2. BSA: 2.19m^2. Study date: 06/12/2025. Study time: 05:49 AM. Location: ICU/CCU Cardiac Anatomy: LEFT VENTRICLE: The cavity size is normal. Wall thickness is upper normal to mildly increased. Global systolic function is mildly reduced. The estimated ejection fraction is 45-50%. For Epic reporting: the left ventricular ejection fraction is 48% by biplane method of disks. Regional wall motion difficult to determine. The longitudinal strain is -9.1% (Normal range is -18 to -25). The global longitudinal strain is -9% with limited tracking(Normal range is -18 to -25). Regional wall motion abnormalities: Hypokinesis of the entireinferior wall. Cannot assess LV diastolic function. RIGHT VENTRICLE: The cavity size is probably at the upper limits of normal. Pacer wire or catheter noted in right ventricle. Systolic function is probably normal. LEFT ATRIUM: The atrium is normal in size. RIGHT ATRIUM: The atrium is normal in size. Pacer wire or catheter noted in right atrium. ATRIAL SEPTUM: Not well visualized. AORTIC VALVE: The valve is trileaflet. The leaflets are mildly thickened. There is no significant regurgitation. MITRAL VALVE: Mildly thickened. There is no evidence for stenosis. There is trace regurgitation. TRICUSPID VALVE: Mobility is unrestricted. There is no evidence for stenosis. There is trace regurgitation. PULMONIC VALVE: Not well visualized. The valve appears to be grossly normal. There is no evidence for stenosis. There is trace regurgitation. PERICARDIUM: A mild circumferential pericardial effusion and/or fat pad was identified. AORTA: Ascending aorta normal in diameter. Measurements Left ventricle Value LVOT Value GLS, 2D -9.1 % Peak david, S 102.17 cm/sec BRENT, LAX 3.9 cm Peak grad, S 4 mm Hg ESD, LAX 3.1 cm BRENT/bsa, LAX 1.8 cm/m^2 Right ventricle Value ESD/bsa, LAX 1.4 cm/m^2 BRENT, LAX 3.4 cm FS, LAX 20 % S' lateral 10.0 cm/sec FS, LAX chord 20 % ESD major ax, A4C 6.7 cm Left atrium Value ESD/bsa major ax, A4C 3.1 cm/m^2 AP dim, ES 3.3 cm BRENT minor ax, A4C 6.7 cm AP dim index, ES 1.5 cm/m^2 BRENT/bsa minor ax, A4C 3.1 cm/m^2 SI dim, A4C 5.4 cm BRENT major ax, A2C 7.6 cm Area ES, A4C 16 cm^2 ESD major ax, A2C 6.0 cm Vol, S 48 ml BRENT/bsa major ax, A2C 3.5 cm/m^2 Vol/bsa, S 22 ml/m^2 ESD/bsa major ax, A2C 2.7 cm/m^2 Vol, ES, 1-p A4C 39 ml IVS, ED 1.3 cm Vol/bsa, ES, 1-p A4C 18 ml/m^2 ESD 3.1 cm Vol, ES, 1-p A2C 50 ml ESD/bsa 1.4 cm/m^2 Vol/bsa, ES, 1-p A2C 23 ml/m^2 FS 20 % Vol, ES, 2-p 48 ml PW, ED 1.3 cm Vol/bsa, ES, 2-p 22 ml/m^2 IVS/PW, ED 1.01 Vol, ES, A/L 40 ml EDV, 1-p A2C 50 ml Vol/bsa, ES, A/L 18 ml/m^2 ESV, 1-p A2C 24 ml EF, 1-p A2C 47 % Right atrium Value EDV/bsa, 1-p A2C 23 ml/m^2 Area, ES, A4C 14 cm^2 ESV/bsa, 1-p A2C 11 ml/m^2 EDV, 1-p A4C 51 ml Aortic valve Value ESV, 1-p A4C 25 ml Peak v, S 120.26 cm/sec EF, 1-p A4C 51 % Peak grad, S 6 mm Hg SV, 1-p A4C 26 ml LVOT/AV, Vpeak ratio 0.85 EDV/bsa, 1-p A4C 23 ml/m^2 ESV/bsa, 1-p A4C 11 ml/m^2 Mitral valve Value SV/bsa, 1-p A4C 12 ml/m^2 Peak E 40.31 cm/sec EDV, 2-p 52 ml Peak A 59.74 cm/sec ESV, 2-p 27 ml Decel slope 91.74 cm/s^2 EF, 2-p 48 % Decel time 439 ms SV, 2-p 26 ml Peak E/A ratio 0.67 EDV/bsa, 2-p 24 ml/m^2 ESV/bsa, 2-p 12 ml/m^2 Aortic root Value SV/bsa, 2-p 11.9 ml/m^2 Root diam 3.0 cm E', lat vanessa, TDI 5.2 cm/sec Root diam/bsa 1.4 cm/m^2 E/e', lat vanessa, TDI 8 E', med vanessa, TDI 4.9 cm/sec Ascending aorta Value E/e', med vanessa, TDI 8 AAo AP diam, S 3.6 cm E', avg, TDI 5.1 cm/sec AAo AP diam/bsa, S 1.6 cm/m^2 E/e', avg, TDI 8 Legend: (L) and (H) levi values outside specified reference range. [facility] are accredited with the [facility] Accreditation Commission - Echocardiography. Prepared and Electronically Authenticated Prince Yordan Confirmed 06/12/2025 08:50 Procedure Note Prince Farr MD - 06/12/2025 [facility] Cardiovascular Services Echocardiography Laboratory [address] [place] [id number] Transthoracic Echocardiography Patient: Noemi Study ID: KACI DOWNINGHever Isaac Gender: M : 1960 Age: 65 Room: [facility] Study 06/12/2025 Pt Inpatient Date: Status: Study 05:49:12 AM CSN #: [id number] Time: Ordering:Prince Yordan Mail Officer: LEVI Indications and History: NC/ACS; Initial evaluation post NC. Labs, prior tests, procedures, and surgery: Catheterization (06/12/2025). There was a stenosis which was treatedwith a stent. An intra-aortic balloon pump was inserted. Extracorporeal membrane oxygenation (06/12/2025). Summary and Conclusion: - Left ventricle: The cavity size is normal. Wall thickness is uppernormal to mildly increased. Global systolic function is mildly reduced. Theestimated ejection fraction is 45-50%. For Epic reporting: the left ventricular ejection fraction is 48% by biplane method of disks. Hypokinesis ofthe entireinferior wall. Regional wall motion difficult to determine.Cannot assess LV diastolic function. The global longitudinal strain is -9%with limited tracking(Normal range is -18 to -25). - Right ventricle: The cavity size is probably at the upper limits ofnormal. Pacer wire or catheter noted in right ventricle. Systolic function is probably normal. - Pericardium: A mild circumferential pericardial effusion and/or fat padwas identified. - Limited quality study. No significant valcular abnormality identifiedon this study. 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 Procedure: A transthoracic echocardiogram wasperformed. Image quality was adequate. The study was technically limited due topoor acoustic window availability, restricted patient mobility, and patienton ventilator. Scanning was performed from the parasternal, apical,subcostal, and suprasternal notch acoustic windows. There were no complications. Study components: M-mode, 2D, complete spectral Doppler, and colorDoppler. Height: 172.7cm. Height: 68in. Weight: 97.1kg. Weight: 214lb. BMI: 32.5kg/m^2. BSA: 2.19m^2. Study date: 06/12/2025. Study time:05:49 AM. Location: ICU/CCU Cardiac Anatomy: LEFT VENTRICLE: The cavity size is normal. Wall thickness is upper normalto mildly increased. Global systolic function is mildly reduced. Theestimated ejection fraction is 45-50%. For Epic reporting: the left ventricularejection fraction is 48% by biplane method of disks. Regional wall motion difficultto determine. The longitudinal strain is -9.1% (Normal range is -18 to -25).The global longitudinal strain is -9% with limited tracking(Normal range is-18 to -25). Regional wall motion abnormalities: Hypokinesis of theentireinferior wall. Cannot assess LV diastolic function. RIGHT VENTRICLE: The cavity size is probably at the upper limits ofnormal. Pacer wire or catheter noted in right ventricle. Systolic function isprobably normal. LEFT ATRIUM: The atrium is normal in size. RIGHT ATRIUM: The atrium is normal in size. Pacer wire or catheter notedin right atrium. ATRIAL SEPTUM: Not well visualized. AORTIC VALVE: The valve is trileaflet. The leaflets are mildlythickened. There is no significant regurgitation. MITRAL VALVE: Mildly thickened. There is no evidence for stenosis.There is trace regurgitation. TRICUSPID VALVE: Mobility is unrestricted. There is no evidence for stenosis. There is trace regurgitation. PULMONIC VALVE: Not well visualized. The valve appears to be grosslynormal. There is no evidence for stenosis. There is trace regurgitation. PERICARDIUM: A mild circumferential pericardial effusion and/or fat padwas identified. AORTA: Ascending aorta normal in diameter. Measurements Left ventricle Value LVOT Value GLS, 2D -9.1 % Peak david, S 102.17cm/sec BRENT, LAX 3.9 cm Peak grad, S 4 mm Hg ESD, LAX 3.1 cm BRENT/bsa, LAX 1.8 cm/m^2 Right ventricle Value ESD/bsa, LAX 1.4 cm/m^2 BRENT, LAX 3.4 cm FS, LAX 20 % S' lateral 10.0cm/sec FS, LAX chord 20 % ESD major ax, A4C 6.7 cm Left atrium Value ESD/bsa major ax, A4C 3.1 cm/m^2 AP dim, ES 3.3 cm BRENT minor ax, A4C 6.7 cm AP dim index, ES 1.5cm/m^2 BRENT/bsa minor ax, A4C 3.1 cm/m^2 SI dim, A4C 5.4 cm BRENT major ax, A2C 7.6 cm Area ES, A4C 16 cm^2 ESD major ax, A2C 6.0 cm Vol, S 48 ml BRENT/bsa major ax, A2C 3.5 cm/m^2 Vol/bsa, S 22ml/m^2 ESD/bsa major ax, A2C 2.7 cm/m^2 Vol, ES, 1-p A4C 39 ml IVS, ED 1.3 cm Vol/bsa, ES, 1-p A4C 18ml/m^2 ESD 3.1 cm Vol, ES, 1-p A2C 50 ml ESD/bsa 1.4 cm/m^2 Vol/bsa, ES, 1-p A2C 23ml/m^2 FS 20 % Vol, ES, 2-p 48 ml PW, ED 1.3 cm Vol/bsa, ES, 2-p 22ml/m^2 IVS/PW, ED 1.01 Vol, ES, A/L 40 ml EDV, 1-p A2C 50 ml Vol/bsa, ES, A/L 18ml/m^2 ESV, 1-p A2C 24 ml EF, 1-p A2C 47 % Right atrium Value EDV/bsa, 1-p A2C 23 ml/m^2 Area, ES, A4C 14 cm^2 ESV/bsa, 1-p A2C 11 ml/m^2 EDV, 1-p A4C 51 ml Aortic valve Value ESV, 1-p A4C 25 ml Peak v, S 120.26cm/sec EF, 1-p A4C 51 % Peak grad, S 6 mm Hg SV, 1-p A4C 26 ml LVOT/AV, Vpeak ratio 0.85 EDV/bsa, 1-p A4C 23 ml/m^2 ESV/bsa, 1-p A4C 11 ml/m^2 Mitral valve Value SV/bsa, 1-p A4C 12 ml/m^2 Peak E 40.31cm/sec EDV, 2-p 52 ml Peak A 59.74cm/sec ESV, 2-p 27 ml Decel slope 91.74cm/s^2 EF, 2-p 48 % Decel time 439 ms SV, 2-p 26 ml Peak E/A ratio 0.67 EDV/bsa, 2-p 24 ml/m^2 ESV/bsa, 2-p 12 ml/m^2 Aortic root Value SV/bsa, 2-p 11.9 ml/m^2 Root diam 3.0 cm E', lat vanessa, TDI 5.2 cm/sec Root diam/bsa 1.4cm/m^2 E/e', lat vanessa, TDI 8 E', med vanessa, TDI 4.9 cm/sec Ascending aorta Value E/e', med vanessa, TDI 8 AAo AP diam, S 3.6 cm E', avg, TDI 5.1 cm/sec AAo AP diam/bsa, S 1.6cm/m^2 E/e', avg, TDI 8 Legend: (L) and (H) levi values outside specified reference range. [facility] are accredited with the[facility]ocietal Accreditation Commission - Echocardiography. Prepared and Electronically Authenticated Prince Elysia Farr 06/12/2025 08:50 us Prince Yordan SANTANA ORDERABLES Final Result INTERFACE SYSTEM Refer to clinic/hospital department * EXTRA TUBE (URINE ALVES) (06/12/2025 6:19 AM CDT) Urine (Urine, indwelling (Orta) catheter) Collection / Unknown 06/12/2025 6:19 AM CDT 06/12/2025 6:24 AM CDT us Love Gonzalez BOTTOM SAW OPERATOR URINE ORDERABLES Elsie edil Result [facility] CLIA # [id number] [address] * (ABNORMAL) DRUG SCREEN, URINE (06/12/2025 6:19 AM CDT) Pathologist [facility] AMPHETAMINE QUAL, URINE Negative Negative 06/12/2025 7:15 AM CDT [facility] BARBITURATE QUAL, URINE Negative Negative 06/12/2025 7:15 AM CDT [facility] BENZODIAZEPINE QUAL, URINE Presumptive Positive(A) Negative 06/12/2025 7:15 AM CDT [facility] COCAINE QUAL URINE Negative Negative 06/12/2025 7:15 AM CDT [facility] OPIATE QUAL, URINE Negative Negative 06/12/2025 7:15 AM CDT [facility] CANNABINOIDS QUAL, URINE Presumptive Positive(A) Negative 06/12/2025 7:15 AM CDT [facility] OXYCODONE QUAL, URINE Negative Negative 06/12/2025 7:15 AM CDT [facility] METHADONE QUAL, URINE Negative Negative 06/12/2025 7:15 AM CDT [facility] FENTANYL QUAL, URINE Presumptive Positive(A) Negative 06/12/2025 7:15 AM CDT [facility] CREATININE, URINE 19.2(L) 40.0 - 278.0 mg/dL 06/12/2025 7:15 AM CDT [facility] Comment:Reference Range vari es with fluid intake and diet. Urine (Urine, indwelling (Orta) catheter) Collection / Unknown 06/12/2025 6:19 AM CDT 06/12/2025 6:25 AM CDT [facility] - 06/12/2025 7:15 AM CDT When Urine Creatinine is <20 mg/dL, the sample may have been diluted. Further testing with a new sample is recommended, if indicated. This test is a qualitative screen. The presumptive positive results should not be used for legal purposes. If confirmation of results is desired, the lab must be contacted without delay. Drug Ref. Range Screening Threshold Amphetamines Negative 500 ng/mL Barbiturates Negative 200 ng/mL Benzodiazepines Negative 100 ng/mL Cannabinoids Negative 50 ng/mL Cocaine Metabolite Negative 300 ng/mL Opiate Negative 300 ng/mL Oxycodone Negative 100 ng/mL Methadone Negative 300 ng/mL Fentanyl Negative 5 ng/mL us Love Gonzalez BOTTOM SAW OPERATOR URINE ORDERABLES Elsie edil Result [facility] CLIA # [id number] [facility] [id number] * (ABNORMAL) URINALYSIS WITH REFLEX MICROSCOPIC (06/12/2025 6:19 AM CDT) COLOR UA Pale Yellow Pale to Dark Yellow 06/12/2025 6:36 AM T [facility] CLARITY UA Clear Clear 06/12/2025 6:36 AM T [facility] SPECIFIC GRAVITY UA 1.022 1.003 - 1.035 06/12/2025 6:36 AM T [facility] PH UA 6.5 5.0 - 8.0 06/12/2025 6:36 AM T [facility] LEUKOCYTE ESTERASE UA Negative Negative 06/12/2025 6:36 AM T [facility] NITRITE UA Negative Negative 06/12/2025 6:36 AM T [facility] PROTEIN UA 2+(A) Negative 06/12/2025 6:36 AM CDT [facility] GLUCOSE UA 4+(A) Negative 06/12/2025 6:36 AM CDT [facility] KETONES UA Negative Negative 06/12/2025 6:36 AM CDT [facility] UROBILINOGEN UA <2.0 <2.0 mg/dL 6:36 AM CDT [facility] BILIRUBIN UA Negative Negative 06/12/2025 6:36 AM CDT [facility] BLOOD UA 3+(A) Negative 06/12/2025 6:36 AM CDT [facility] WBC UA 3-5(A) 0 - 2 /hpf 06/12/2025 6:36 AM CDT [facility] RBC UA 26-50(A) 0 - 2 /hpf 06/12/2025 6:36 AM CDT [facility] BACTERIA UA Negative Negative /hpf 06/12/2025 6:36 AM CDT [facility] EPITHELIAL CELLS, URINE 0-5 0 - 5 /hpf 06/12/2025 6:36 AM CDT [facility] HYALINE CAST 6-10(A) None Seen, 0-2 /lpf 06/12/2025 6:36 AM CDT [facility] Urine (Urine, indwelling (Orta) catheter) Collection / Unknown 06/12/2025 6:19 AM CDT 06/12/2025 6:24 AM CDT Love Gonzalez BOTTOM SAW OPERATOR URINE ORDERABLES Elsie l Result [facility] CLIA # [id number] [facility] [address] [address] [place], [place] [address] * XR ABDOMEN FOR FEEDING TUBE 1 VW (06/12/2025 6:17 AM CDT) Anatomical Region Laterality Modality Abdomen Computed Radiogr aphy 06/12/2025 6:17 AM CDT Impressions 06/12/2025 6:22 AM CDT IMPRESSION: Left femoral approach ankle cannula tip projected over the region of the upper right atrium. Right femoral approach transvenous pacer wire with tip projected over the region of the left ventricle. Atelectasis and/or infiltrate in the left lower lung. Intra-aortic balloon pump. Remainder unremarkable. Narrative 06/12/2025 6:22 AM CDT Exam: Radiographs: XR ABDOMEN FOR FEEDING TUBE 1 VW Indication: ST elevation myocardial infarction (STEMI), unspecified artery; Cardiac arrest with ventricular fibrillation (CMS/HCC); Cardiac arrest with ventricular fibrillation (CMS/HCC); CHB (complete heart block); Laboratory test Comparison: None Procedure Note Karl Izaguirre MD - 06/12/2025 Exam: Radiographs: XR ABDOMEN FOR FEEDING TUBE 1 VW Indication: ST elevation myocardial infarction (STEMI), unspecified artery; Cardiac arrest with ventricular fibrillation (CMS/HCC); Cardiac arrest with ventricular fibrillation (CMS/HCC); CHB (complete heart block); Laboratory test Comparison: None IMPRESSION: Left femoral approach ankle cannula tip projected over the region of the upper right atrium. Right femoral approach transvenous pacer wire with tip projected over the region of the left ventricle. Atelectasis and/or infiltrate in the left lower lung. Intra-aortic balloon pump. Remainder unremarkable. Charles Hermelindo Magana MD DIAGNOSTIC IMAGING ORD ERABLES Final Result * XR CHEST PA OR AP 1 VW (06/12/2025 6:16 AM CDT) Anatomical Region Laterality Modality Chest Computed Radiogr aphy 06/12/2025 6:16 AM CDT Impressions 06/12/2025 6:22 AM CDT IMPRESSION: Atelectasis and/or infiltrate scattered throughout the mid and lower lungs bilaterally, this has improved substantially compared to yesterday. ETT with tip in the mid thoracic trachea. Femoral approach ECMO cannula projects over the region of the upper right atrium. Intra-aortic balloon pump with radiopaque marker projected over the aortic arch. Pulmonary vascular congestion. NG tube with tip in stomach. Probable approach venous pacer wire with tip projecting over the region of the left ventricle. Remainder unremarkable. Narrative 06/12/2025 6:22 AM CDT Exam: Radiographs: XR CHEST PA OR AP 1 VW Indication: ST elevation myocardial infarction (STEMI), unspecified artery; Cardiac arrest with ventricular fibrillation (CMS/HCC); Cardiac arrest with ventricular fibrillation (CMS/HCC); CHB (complete heart block); Laboratory test Comparison: Chest x-ray dated 06/11/2025 Procedure Note Karl Izaguirre MD - 06/12/2025 Exam: Radiographs: XR CHEST PA OR AP 1 VW Indication: ST elevation myocardial infarction (STEMI), unspecified artery; Cardiac arrest with ventricular fibrillation (CMS/HCC); Cardiac arrest with ventricular fibrillation (CMS/HCC); CHB (complete heart block); Laboratory test Comparison: Chest x-ray dated 06/11/2025 IMPRESSION: Atelectasis and/or infiltrate scattered throughout the mid and lower lungs bilaterally, this has improved substantially compared to yesterday. ETT with tip in the mid thoracic trachea. Femoral approach ECMO cannula projects over the region of the upper right atrium. Intra-aortic balloon pump with radiopaque marker projected over the aortic arch. Pulmonary vascular congestion. NG tube with tip in stomach. Probable approach venous pacer wire with tip projecting over the region of the left ventricle. Remainder unremarkable. Charles Hermelindo Magana MD DIAGNOSTIC IMAGING ORD ERABLES Final Result * EKG 12-LEAD (06/12/2025 6:05 AM CDT) 06/12/2025 6:05 AM CDT Narrative INTERFACE SYSTEM - 06/12/2025 2:13 PM CDT [address] [address] Test Date: 2025-06-12 Pat Name: ISAAC FRANKLIN Department: 12 Room: [address] [place] [address] Gender: Male Compliance Representative: [id number] : 1960 Requested By: Order Number: [id number] Reading MD: Smitha Vora Measurements Intervals Malin Rate: 96 P: 0 GA: 0 QRS: -66 QRSD: 144 T: 100 QT: 422 QTc: 533 Interpretive Statements Wide QRS rhythm with frequent premature ventricular complexes Left axis deviation Left bundle branch block Abnormal ECG Electronically Signed On 06-12-2025 14:13:51 CDT by Smitha Vora Procedure Note Provider, Historical - 06/12/[address] [address] Test Date: 2025-06-12 Pat Name: ISAAC FRANKLIN Department: 12 Room: [address] [place] [address] Gender: Male Compliance Representative: [id number] : 1960 Requested By: Order Number: [id number] Reading MD: Smitha Vora Measurements Intervals Malin Rate: 96 P: 0 GA: 0 QRS: -66 QRSD: 144 T: 100 QT: 422 QTc: 533 Interpretive Statements Wide QRS rhythm with frequent premature ventricular complexes Left axis deviation Left bundle branch block Abnormal ECG Electronically Signed On 06-12-2025 14:13:51 CDT by Smitha Vora us Prince Yordan SANTANA ECG ORDERABLES Final Result Performing Organization Address City/[facility]/ZIP Co de Phone Number INTERFACE SYSTEM Refer to clinic/hospital department * KETONES/BETA HYDROXYBUTYRATE (06/12/2025 5:42 AM CDT) BETA HYDROXYBUTYRATE 0.1 0.0 - 0.3 mmol/L 06/12/2025 9:51 AM CDT [facility] Blood Arterial / Unknown 5:42 AM CDT 06/12/2025 5:55 AM CDT us Zenaida Michel MD CHEMISTRY ORDERABLES Final Resul t [facility] CLIA # [id number] [address] [facility] [place] [id number] * (ABNORMAL) LACTIC ACID (06/12/2025 5:42 AM CDT) LACTIC ACID 11.5(HH) <=2.0 mmol/L 06/12/2025 6:35 AM CDT [facility] Blood Arterial / Unknown 5:42 AM CDT 06/12/2025 5:52 AM CDT Charles Magana MD CHEMISTRY ORDERABLES F inal Result Performing Organization Address [facility]/ZIP Co de Phone Number [facility] CLIA # [id number] [address] [place] [address] * (ABNORMAL) PHOSPHORUS (06/12/2025 5:42 AM CDT) PHOSPHORUS 7.4(H) 2.5 - 4.5 mg/dL 06/12/2025 6:51 AM CDT [facility] Blood Arterial / Unknown 5:42 AM CDT 06/12/2025 5:55 AM CDT Love Gonzalez BOTTOM SAW OPERATOR CHEMISTRY ORDERABLES Final Result Performing Organization Address [facility] Co de Phone Number [facility] CLIA # [id number] [address] [place] [address] * (ABNORMAL) MAGNESIUM LEVEL (06/12/2025 5:42 AM CDT) MAGNESIUM 4.3(H) 1.6 - 2.4 mg/dL 06/12/2025 6:51 AM CDT [facility] Blood Arterial / Unknown 5:42 AM CDT 06/12/2025 5:55 AM CDT Love Gonzalez BOTTOM SAW OPERATOR CHEMISTRY ORDERABLES Final Result Performing Organization Address [facility]/ZIP Co de Phone Number [facility] CLIA # [id number] [address] [place] [address] * TYPE AND SCREEN (06/12/2025 5:42 AM CDT) ABO GROUP O 06/12/2025 6:56 AM CDT [facility] RH (D) TYPE Positive 06/12/2025 6:56 AM CDT [facility] ANTIBODY SCREEN Negative 06/12/2025 6:56 AM CDT [facility] Blood Arterial / Unknown 5:42 AM CDT 06/12/2025 5:51 AM CDT Kim Penny MD BLOOD BANK ORDERABLES Edit ed Result - Final [facility] CLIA#[id number] [address] [place] [address], * (ABNORMAL) COMPREHENSIVE METABOLIC PANEL (06/12/2025 5:42 AM CDT) Pathologist [facility] SODIUM 139 136 - 145 mmol/L 06/12/2025 6:51 AM CDT [facility] POTASSIUM 3.4(L) 3.5 - 5.1 mmol/L 06/12/2025 6:51 AM CDT [facility] CHLORIDE 102 98 - 107 mmol/L 06/12/2025 6:51 AM T [facility] CO2 14(L) 22 - 29 mmol/L 06/12/2025 6:51 AM T [facility] CALCIUM 12.9(H) 8.8 - 10.2 mg/dL 06/12/2025 6:51 AM CDT [facility] BUN 16 8 - 23 mg/dL 06/12/2025 6:51 AM CDT [facility] CREATININE 0.91 0.67 - 1.17 mg/dL 06/12/2025 6:51 AM T [facility] GLUCOSE 477(HH) 74 - 99 mg/dL 06/12/2025 6:51 AM CDT [facility] TOTAL PROTEIN 5.4(L) 6.4 - 8.3 g/dL 06/12/2025 6:51 AM CDT [facility] ALBUMIN 2.9(L) 3.5 - 5.2 g/dL 06/12/2025 6:51 AM CDT [facility] BILIRUBIN TOTAL 0.5 0.0 - 1.0 mg/dL 06/12/2025 6:51 AM CDT [facility] ALKALINE PHOSPHATASE 91 40 - 129 U/L 06/12/2025 6:51 AM T [facility] AST 225(H) 10 - 50 U/L 06/12/2025 6:51 AM T [facility] ALT 172(H) <=50 U/L 06/12/2025 6:51 AM T [facility] GFR >60 >=60 mL/min/1. 73 sq meter 06/12/2025 6:51 AM T [facility] Comment:eGFR calculated with 2020 CKD-EPI equation. Vegetarian diet, extremely high or low muscle mass, and may affect results. Cystatin C with Glomerular Filtration Rate is a suitable alternative for these patients. ANION GAP 23(H) 9 - 20 mmol/L 06/12/2025 6:51 AM T [facility] Blood Arterial / Unknown 5:42 AM CDT 06/12/2025 5:55 AM CDT us Love Gonzalez NP CHEMISTRY ORDERABLES Final Result [facility] CLIA # [id number] [address] [place] [address] [phone] * (ABNORMAL) CBC WITH DIFFERENTIAL (06/12/2025 5:42 AM CDT) WBC 20.7(H) 4.8 - 10.8 K/uL 06/12/2025 5:57 AM [facility] RBC 4.01(L) 4.60 - 6.20 M/uL 06/12/2025 5:57 AM [facility] HEMOGLOBIN 12.7(L) 14.0 - 18.0 g/dL 06/12/2025 5:57 AM [facility] HEMATOCRIT 38.3(L) 41.0 - 53.0 % 06/12/2025 5:57 AM [facility] MCV 95.5 84.0 - 103.0 fL 06/12/2025 5:57 AM [facility] MCH 31.7 27.0 - 34.0 pg 06/12/2025 5:57 AM [facility] MCHC 33.2 30.0 - 35.0 g/dL 06/12/2025 5:57 AM [facility] PLATELETS 217 140 - 440 K/uL 06/12/2025 5:57 AM [facility] MPV 9.5 8.9 - 12.8 fL 06/12/2025 5:57 AM [facility] RDW 13.8 11.0 - 14.5 % 06/12/2025 5:57 AM [facility] RDW-STDEV 48.7 37.0 - 54.0 fL 06/12/2025 5:57 AM [facility] NEUTROPHILS 85(H) 42 - 75 % 06/12/2025 5:57 AM [facility] LYMPHOCYTES 9(L) 24 - 44 % 06/12/2025 5:57 AM [facility] MONOCYTES 3 2 - 10 % 06/12/2025 5:57 AM [facility] EOSINOPHILS 0 0 - 7 % 06/12/2025 5:57 AM [facility] BASOPHILS 0 0 - 1 % 06/12/2025 5:57 AM [facility] IMMATURE GRANULOCYTES 2 0 - 2 % 06/12/2025 5:57 AM [facility] NEUTROPHIL ABSOLUTE 17.57(H) 2.00 - 8.00 K/uL 06/12/2025 5:57 AM CDT [facility] LYMPHOCYTE ABSOLUTE 1.82 1.20 - 4.00 K/uL 06/12/2025 5:57 AM CDT [facility] MONOCYTE ABSOLUTE 0.69(H) 0.10 - 0.60 K/uL 06/12/2025 5:57 AM CDT [facility] EOSINOPHIL ABSOLUTE 0.03 0.00 - 0.70 K/uL 06/12/2025 5:57 AM CDT [facility] BASOPHILS ABSOLUTE 0.09 0.00 - 0.20 K/uL 06/12/2025 5:57 AM CDT [facility] IMMATURE GRANULOCYTES ABSOLUTE 0.46(H) 0.00 - 0.10 K/uL 06/12/2025 5:57 AM CDT [facility] SMEAR REVIEWED: NA - Not Applicable 06/12/2025 5:57 AM CDT [facility] Blood Arterial / Unknown 5:42 AM CDT 06/12/2025 5:52 AM CDT Love Gonzalez BOTTOM SAW OPERATOR HEMATOLOGY ORDERABLES Final Result [facility] [id number] [address] [place] [id number] * (ABNORMAL) PTT (06/12/2025 5:42 AM CDT) PTT >249.0(HH) 24.8 - 37.2 seconds 06/12/2025 6:19 AM CDT [facility] Blood Arterial / Unknown 5:42 AM CDT 06/12/2025 5:52 AM CDT Narrative [facility] - 06/12/2025 6:19 AM CDT Therapeutic Range: Hi-level PE/DVT heparin protocol 80.1 - 95.0 sec Lo-level PE/DVT heparin protocol 70.1 - 85.0 sec Cardiac Heparin Protocol 70.1 - 100.0 sec Prince Yordan SANTANA HEMATOLOGY ORDERABLES Final Resu lt [facility] CLIA # [id number] [address] [address] * (ABNORMAL) POC LACTIC ACID (06/12/2025 5:29 AM CDT) LACTIC ACID POC 11.6(HH) <=2.0 mmol/L 06/12/2025 5:29 AM CDT [facility] SPECIMEN SOURCE, GASES POC Venous 06/12/2025 5:29 AM CDT [facility] COMMENT, GASES POC Post Oxygenator 06/12/2025 5:29 AM CDT [facility] CRITICALTO POC [id number] 5:29 AM CDT [facility] NAME POC [id number] 06/12/2025 5:29 AM CDT [facility] RESULTS POC Y 06/12/2025 5:29 AM CDT [facility] TIME POC 526 06/12/2025 5:29 AM CDT [facility] PUNC SITE POC No Charge 06/12/2025 5:29 AM CDT [facility] Blood 06/12/2025 5:29 AM CDT 06/12/2025 5:32 AM CDT Narrative [facility] - 06/12/2025 5:29 AM CDT References ranges displayed are for Arterial samples. us Charles Magana MD POINT OF CARE TESTING Final Result Performing Organization Address City/[facility]/ZIP Co de Phone Number [facility] CLIA # [id number] [address] [address] * (ABNORMAL) BLOOD GAS,(INCL. H+H, LYTES, GLUC) (06/12/2025 5:29 AM CDT) [facility] PH BLOOD POC 7.29(L) 7.32 - 7.43 06/12/2025 5:29 AM [facility] PCO2 POC 32(L) 38 - 50 mm Hg 06/12/2025 5:29 AM T [facility] PO2 POC 514(H) 25 - 40 mm Hg 06/12/2025 5:29 AM [facility] TCO2 (CALC) POC 16(L) 22 - 26 mmol/L 06/12/2025 5:29 AM [facility] HCO3 (CALC) POC 15(L) 22 - 29 mmol/L 06/12/2025 5:29 AM [facility] O2 SATURATION POC 100(H) 40 - 70 % 06/12/2025 5:29 AM [facility] BASE EXCESS POC -11(L) -2 - 3 mmol/L 06/12/2025 5:29 AM [facility] HEMOGLOBIN POC 13.2 12.0 - 18.0 g/dL 06/12/2025 5:29 AM [facility] HEMATOCRIT POC 40 38 - 51 % 06/12/2025 5:29 AM [facility] GLUCOSE POC 494(HH) 74 - 99 mg/dL 06/12/2025 5:29 AM [facility] SODIUM POC 134(L) 135 - 145 mmol/L 06/12/2025 5:29 AM [facility] POTASSIUM POC 3.4(L) 3.5 - 4.9 mmol/L 06/12/2025 5:29 AM [facility] CALCIUM IONIZED POC 7.5(HH) 4.8 - 5.2 mg/dL 06/12/2025 5:29 AM [facility] PH TEMP CORRECT 7.29(L) 7.32 - 7.43 06/12/2025 5:29 AM CDT [facility] PCO2 TEMP CORRECT 32(L) 38 - 50 mm Hg 06/12/2025 5:29 AM CDT [facility] PO2 TEMP CORRECT 514(H) 25 - 40 mm Hg 06/12/2025 5:29 AM CDT [facility] SPECIMEN SOURCE, GASES POC Venous 06/12/2025 5:29 AM CDT [facility] PATIENT'S TEMPERATURE POC 37.0 degrees 06/12/2025 5:29 AM CDT [facility] COMMENT, GASES POC Post Oxygenator 06/12/2025 5:29 AM CDT [facility] CRITICALTO POC [id number] 5:29 AM CDT [facility] NAME POC [id number] 06/12/2025 5:29 AM CDT [facility] RESULTS POC Y 06/12/2025 5:29 AM CDT [facility] TIME POC 526 06/12/2025 5:29 AM CDT [facility] PUN SITE POC No Charge 06/12/2025 5:29 AM CDT [facility] Blood, venous 06/12/2025 5:2 9 AM CDT 06/12/2025 5:32 AM CDT [facility] Hermelindo Magana MD ABG ORDERABLES Final Result [facility] CLIA # [id number] [address] [place] [address] [place] [address] * (ABNORMAL) POC LACTIC ACID (06/12/2025 5:21 AM CDT) LACTIC ACID POC 11.1(HH) <=2.0 mmol/L 06/12/2025 5:21 AM CDT [facility] SPECIMEN SOURCE, GASES POC Arterial 06/12/2025 5:21 AM CDT [facility] COMMENT, GASES POC Pre Oxygenator 06/12/2025 5:21 AM CDT [facility] CRITICALTO POC [id number] 5:21 AM CDT [facility] NAME POC [id number] 06/12/2025 5:21 AM CDT [facility] RESULTS POC Y 06/12/2025 5:21 AM CDT [facility] TIME POC 522 06/12/2025 5:21 AM CDT [facility] PUNC SITE POC No Charge 06/12/2025 5:21 AM T [facility] Blood 06/12/2025 5:21 AM CDT 06/12/2025 5:24 AM CDT Narrative [facility] - 06/12/2025 5:21 AM CDT References ranges displayed are for Arterial samples. Charlse Hermelindo Magana MD POINT OF CARE TESTING Final Result [facility] CLIA # [id number] [address] [place] [address] * (ABNORMAL) BLOOD GAS,(INCL. H+H, LYTES, GLUC) (06/12/2025 5:21 AM CDT) PH BLOOD POC 7.22(L) 7.35 - 7.45 06/12/2025 5:21 AM T [facility] PCO2 POC 43 35 - 45 mm Hg 06/12/2025 5:21 AM CDT [facility] PO2 POC 63(L) 80 - 105 mm Hg 06/12/2025 5:21 AM CDT [facility] TCO2 (CALC) POC 19(L) 23 - 27 mmol/L 06/12/2025 5:21 AM CDT [facility] HCO3 (CALC) POC 18(L) 22 - 26 mmol/L 06/12/2025 5:21 AM [facility] O2 SATURATION POC 90(L) 95 - 98 % 06/12/2025 5:21 AM [facility] BASE EXCESS POC -10(L) -2 - 3 mmol/L 06/12/2025 5:21 AM [facility] HEMOGLOBIN POC 12.2 12.0 - 18.0 g/dL 06/12/2025 5:21 AM [facility] HEMATOCRIT POC 37(L) 38 - 51 % 06/12/2025 5:21 AM [facility] GLUCOSE POC 484(HH) 74 - 99 mg/dL 06/12/2025 5:21 AM [facility] SODIUM POC 138 138 - 146 mmol/L 06/12/2025 5:21 AM [facility] POTASSIUM POC 3.5 3.5 - 4.9 mmol/L 06/12/2025 5:21 AM [facility] CALCIUM IONIZED POC 7.1(HH) 4.8 - 5.2 mg/dL 06/12/2025 5:21 AM [facility] PH TEMP CORRECT 7.22(L) 7.35 - 7.45 06/12/2025 5:21 AM [facility] PCO2 TEMP CORRECT 43 35 - 45 mm Hg 06/12/2025 5:21 AM [facility] PO2 TEMP CORRECT 63(L) 80 - 105 mm Hg 06/12/2025 5:21 AM [facility] SPECIMEN SOURCE, GASES POC Arterial 06/12/2025 5:21 AM [facility] PATIENT'S TEMPERATURE POC 37.0 degrees 06/12/2025 5:21 AM [facility] COMMENT, GASES POC Pre Oxygenator 06/12/2025 5:21 AM [facility] CRITICALTO POC [id number] 5:21 AM [facility] NAME POC [id number] 06/12/2025 5:21 AM CDT [facility] RESULTS POC Y 06/12/2025 5:21 AM CDT [facility] TIME POC 522 06/12/2025 5:21 AM CDT [facility] SITE POC No Charge 06/12/2025 5:21 AM CDT [facility] Blood, arterial 06/12/2025 5 :21 AM CDT 06/12/2025 5:24 AM CDT Charles Magana MD ABG ORDERABLES Final Result [facility] CLIA # [id number] [address] [place] [address] * (ABNORMAL) POC ACTIVATED CLOTTING TIME (06/12/2025 3:22 AM CDT) [facility] ACTIVATED CLOTTING TIME POC 250(H) 116 - 140 sec 06/12/2025 3:22 AM CDT [facility] Blood 06/12/2025 3:22 AM CDT 06/12/2025 3:41 AM CDT Doreen Ambrocio MD POINT OF CARE TESTING Final Result [facility] CLIA # [id number] [address] [place] [address] * LEFT HEART CATH, PERCUTANEOUS CORONARY INTERVENTION, RIGHT HEART CATH, PACEMAKER TEMPORARY, INTRA AORTIC BALLOON PUMP INSERTION (06/12/2025 3:16 AM CDT) Narrative [facility] CARDIOLOGY [facility] - 06/12/2025 3:44 AM CDT Table formatting from the original result was not included. Cardiac Catheterization Report [place], [place] PATIENT: Isaac Franklin PATIENT NUMBER: [id number] BIRTHDATE: 1960 DATE: 06/12/2025 TIME: 3:44 AM Procedures: Ultrasound guided right common femoral arterial and right femoral venous access Left heart catheterization Right heart catheterization Temporary pacemaker insertion Selective coronary angiography Percutaneous coronary intervention of proximal right coronary artery Intravascular ultrasound Intra-aortic balloon pump insertion Right iliofemoral angiogram Descending thoracic and abdominal aortic angiogram Consent: Emergent Informed consent was obtained from family and second physician (ER physician) after a thorough discussion of risk, benefits and potential complications. The family verbalized understanding and agreed to undergo the procedure (s). Consent placed in the chart. Procedural details: The patient was brought to the cardiac catheterization area. Versed and fentanyl were administered intravenously for sedation (refer to medication documentation for details). Patient was monitored throughout the procedure by myself, Intramural Director staff. Blood pressure, oxygen level, heart rate and level of consciousness were assessed throughout the procedure and at its conclusion. Left and right heart Catheterization and/or Coronary Artery Angiography : The right femoral area was draped and prepared in the standard sterile fashion. Common femoral artery and femoral vein were visualized under ultrasound. After this, subcutaneous lidocaine was administered for local anesthesia. Micro access kit was utilized to obtain common femoral arterial and femoral venous access under ultrasound guidance. Over wire, micro sheath was place. Iliofemoral arterial angiogram was performed. 6 Welsh sheath was advanced into the artery. 6 Welsh lockable sheath was advanced into the vein. 5F Cecile left and Cecile right catheters were utilized to engage the left and right coronary arteries. Selective coronary angiography was performed in multiple angiographic projections. Catheter(s) and wires were removed. Percutaneous Coronary Intervention: The right coronary artery was engaged utilizing 6F JR4 guide catheter. Intravenous heparin was utilized to maintain therapeutic ACT (refer to medication documentation for details). 0.014 Runthrough wire was utilized across the proximal right coronary lesion. Predilatation was performed utilizing 2.5 x 12 mm semi compliant balloon. 3.0 x 15 mm frontier Jai drug-eluting stent was deployed. IVUS catheter advanced across the lesion. Distal reference 3.5 mm and proximal reference 4 mm. Postdilatation was performed with 3.5 mm NC balloon distally and 4 mm NC balloon proximally. Follow-up angiogram showed distal edge dissection. This was covered with 3.0 x 18 mm frontier [place] AMBER. Further postdilatation performed with 3.5 mm NC balloon in the mid to distal stented segment and 4 mm NC balloon proximally. Follow-up angiograms showed excellent result. Coronary wire and guide catheters were removed. Lesion characteristics: ACC AHA type: Type Non-C Preprocedure PERRY 0 flow Postprocedure PERRY 3 flow. Subsequently, right heart catheterization was performed. 5 Welsh Guinda-Chelsie catheter was advanced from the 6 Welsh venous sheath into the pulmonary capillary wedge, pulmonary artery, right ventricular and right atrial position to obtain hemodynamic data. This was then removed. He continued to have transient ventricular tachycardia including torsades. Additionally, he had intermittent accelerated idioventricular rhythm. Subsequently, 5 Welsh balloontipped temporary pacemaker was inserted into the right ventricle position. This was tested and secured in place. Settings VVI, backup rate 50 bpm, output 2 mA (lost capture at 0.2 mA) He was noted to have continued blood pressure lability despite being on 0.1 mcg/kg/min of norepinephrine and 0.1 mcg/kg/min of epinephrine. A decision was made to place intra-aortic balloon pump. 5 Welsh pigtail catheter was advanced into the descending thoracic aorta. Aortogram was performed. This showed acceptable angiogram for insertion of intra-aortic balloon pump. Subsequently, balloon pump wire was advanced into the ascending aorta and 40 cc balloon pump was advanced up to the aortic arch. This was secured in place and initiated at one-to-one augmentation with appropriate augmentation. At the end of procedure, patient was transferred back to cardiac ICU in hemodynamically stable and pain-free state. Hemodynamics : Left ventricular end-diastolic pressure 14-16 mmHg. No significant gradient across the aortic valve on pullback. Right heart catheterization: RA mean: 14 mmHg RV: 29 / EDP 17 mmHg PA: 35 / 21 (mean 27) mmHg PCWP: 17 mmHg Cardiac Output (L/min) / Cardiac Index (L/min/sq m) Thermodilution: 5.2 / 2.5 Selective Coronary Angiography : 1. Left main coronary artery: It arises normally from the left coronary sinus. It trifurcates into the left anterior descending artery, ramus intermedius and the left circumflex artery. It is widely patent with mild luminal irregularities 2. Left anterior descending artery: It is a large vessel which gives rise to multiple small diagonal branches. It and its branches have have mild luminal irregularities. 3. Left circumflex artery: It is a nondominant vessel. It gives rise to one main obtuse marginal branches. Proximal left circumflex artery has 30% stenosis. Otherwise, it and its branches have mild luminal irregularities. 4, Right coronary artery: It arises normally from the right coronary sinus. It is a dominant vessel. It divides into the right posterior descending artery and the right posterolateral branches. Proximal right coronary artery has 100% thrombotic occlusion. Otherwise, it and its branches have mild luminal irregularities. 5. Ramus intermedius: It is a moderate caliber vessel. It has mild diffuse luminal irregularities. Impression: 100% thrombotic occlusion of proximal right coronary artery. Successful IVUS guided PCI of proximal to mid right coronary artery with overlapping 3.0 x 15 and 3.0 x 18 mm frontier Jai AMBER, postdilated with 3.5 mm NC balloon in the mid to distal stented segment and 4 mm NC balloon proximally. Mildly elevated left and right-sided filling pressures. Mildly elevated pulmonary artery pressure. Preserved cardiac output/index. Transient hemodynamic instability despite continued intravenous epinephrine and norepinephrine infusion. Successful insertion of intra-aortic balloon pump, augmenting at 1:1 with appropriate response and support. Successful insertion 5 Welsh balloontipped pacemaker RECOMMENDATIONS: Transfer to cardiac ICU under felting machine operator helper per protocol for further management. Dual antiplatelet therapy with aspirin 81 mg daily and ticagrelor 90 mg twice daily for at least 1 year and mono antiplatelet epi thereafter unless prohibitive. Heparin drip while intra-aortic balloon pump is in place. Prince Yordan SANTANA, [facility], RPVI 06/12/2025 3:44 AM Coronary Findings Diagnostic Dominance: Right No diagnostic findings have been documented. Intervention No interventions have been documented. Estimated Blood Loss There was minimal blood loss during procedure. Assist Devices An IABP was inserted through the right femoral artery after intervention began. The augmentation was 1:1. The device was left in place. The sheath was secured in place. PCI RISK CSHA Frailty Score: Well (No active disease symptoms, Occasionally active). NYHA Class: Class IV: Unable to carry on any physical activity without symptoms of HF, or symptoms of HF at rest. (Orthopnea, PND, SOB at rest) CV Instability: persistent ischemic symptoms (chest pain, LUIS), ventricular arrythmias and cardiogenic shock. PAD: Unknown. Cerebrovascular Disease History: Unknown Prince Yordan SANTANA CUP CATH ORDERABLES Final Result [facility] CLIA [id number] [address] [facility] [address] [place] [phone], * (ABNORMAL) POC ACTIVATED CLOTTING TIME (06/12/2025 3:09 AM CDT) ACTIVATED CLOTTING TIME POC 228(H) 116 - 140 sec 06/12/2025 3:09 AM CDT [facility] Blood 06/12/2025 3:09 AM CDT 06/12/2025 3:41 AM CDT Doreen Ambrocio MD POINT OF CARE TESTING Final Result Performing Organization Address [facility] Co de Phone Number [facility] CLIA # [id number] [address] [facility] [place] [address] * (ABNORMAL) POC ACTIVATED CLOTTING TIME (06/12/2025 2:51 AM CDT) ACTIVATED CLOTTING TIME POC 210(H) 116 - 140 sec 06/12/2025 2:51 AM CDT [facility] Blood 06/12/2025 2:51 AM CDT 06/12/2025 3:41 AM CDT Doreen Ambrocio MD POINT OF CARE TESTING Final Result Performing Organization Address City/[facility]/ZIP Co de Phone Number [facility] CLIA # [id number] [address] [facility] [place] [address] * (ABNORMAL) POC ACTIVATED CLOTTING TIME (06/12/2025 2:40 AM CDT) ACTIVATED CLOTTING TIME POC 222(H) 116 - 140 sec 06/12/2025 2:40 AM CDT [facility] Blood 06/12/2025 2:40 AM CDT 06/12/2025 3:41 AM CDT Doreen Ambrocio MD POINT OF CARE TESTING Final Result [facility] CLIA # [id number] [address] [place] [address] [place] [address] documented in this encounter Visit Diagnoses Diagnosis ST elevation myocardial infarction involving right coronary artery (CMS/HCC)- Primary Acute myocardial infarction of inferoposterior wall, initial episode of care ST elevation myocardial infarction (STEMI), unspecified artery ([facility]/HCC) Cardiac arrest with ventricular fibrillation (CMS/HCC) CHB (complete heart block) (CMS/HCC) Atrioventricular block, complete Laboratory test Laboratory examination, unspecified Patient receiving extracorporeal membrane oxygenation (ECMO) Ischemic dilated cardiomyopathy (CMS/HCC) Other specified forms of chronic ischemic heart disease S/P coronary artery stent placement Postsurgical percutaneous transluminal coronary angioplasty status Paroxysmal atrial fibrillation (CMS/HCC) Atrial fibrillation Acute pulmonary edema (CMS/HCC) Acute edema of lung, unspecified Acute hypoxemic respiratory failure (CMS/HCC) Thrombocytosis Essential thrombocythemia Leukocytosis, unspecified type Cardiogenic shock (CMS/HCC) Cardiogenic shock Complete heart block (CMS/HCC) Atrioventricular block, complete Cardiac arrest with ventricular fibrillation (CMS/HCC) CHB (complete heart block) (CMS/HCC) Atrioventricular block, complete ST elevation myocardial infarction (STEMI) (CMS/HCC) Acute myocardial infarction, unspecified site, episode of care unspecified Acute pulmonary edema (CMS/HCC) Acute edema of lung, unspecified Acute hypoxemic respiratory failure (CMS/HCC) Lactic acidosis Acidosis Laboratory test Laboratory examination, unspecified Patient receiving extracorporeal membrane oxygenation (ECMO) Diabetes mellitus (CMS/HCC) Type II or unspecified type diabetes mellitus without mention of complication, not stated as uncontrolled S/P coronary artery stent placement Postsurgical percutaneous transluminal coronary angioplasty status Ventricular tachycardia (CMS/HCC) Paroxysmal ventricular tachycardia AV block Atrioventricular block, unspecified Acute diastolic heart failure (CMS/HCC) Acute diastolic heart failure Atrial fibrillation (CMS/HCC) Atrial fibrillation Ischemic dilated cardiomyopathy (CMS/HCC) Other specified forms of chronic ischemic heart disease Leukocytosis Leukocytosis, unspecified Thrombocytosis Essential thrombocythemia Complete heart block (CMS/HCC) Atrioventricular block, complete Cardiac arrest (CMS/HCC) Cardiac arrest Cardiogenic shock (CMS/HCC) Cardiogenic shock ST elevation myocardial infarction involving right coronary artery (CMS/HCC) Acute myocardial infarction of inferoposterior wall, initial episode of care ST elevation myocardial infarction involving right coronary artery (CMS/HCC) Acute myocardial infarction of inferoposterior wall, initial episode of care documented in this encounter Administered Medications Inactive Administered Medications - up to 3 most recent administrations Medication Order MAR Action Action Date Dose Rate Site acetaminophen (TYLENOL) tablet 650 mg 650 mg, Oral, ONE TIME ONLY, 1 dose, On Sat06/18/25 at 0815, Routine Given 06/18/2025 8:18 AM CDT 650 mg acetaZOLAMIDE sodium (DIAMOX) 500 mg in sterile water 5 mL injection 500 mg, IV, EVERY 12 HOURS (BlD), 2 doses, First dose on Sat06/15/25 at 1115, Last dose on Sat06/15/25 at 2100, Routine Given 06/15/2025 8:05 PM CDT 500 mg Given 06/15/2025 11:23 AM CDT 500 mg albumin, human (BUMINATE) 5 % injection 12.5 Gram 12.5 Gram, IV, ONE TIME ONLY, 1 dose, On Sat06/15/25 at 1245, Routine, Indication: Post-Operative Cardiopulmonary Surgery New Bag 06/15/2025 12:55 PM CDT 12.5 Grams 300 mL/hr albumin, human (BUMINATE) 5 % injection 25 Gram 25 Gram, IV, ONE TIME ONLY, 1 dose, On 06/12/25 at 1715, Routine New Bag 06/12/2025 5:19 PM CDT 25 Grams albuterol (PROVENTIL,VENTOLIN) 2.5 mg /3 mL (0.083 %) inhalation solution 2.5 mg 2.5 mg, Inhalation, EVERY 4 HOURS PRN RESPIRATORY, Starting on Sat06/18/25 at 0038, Until Sat06/27/25 at 1559, Shortness of Breath, Wheezing, Routine AMIODARONE 150 MG/100 ML (1.5 MG/ML) IN DEXTROSE, ISO-OSMOTIC IV (CABINET OVERRIDE) 1 dose, Starting on 06/12/25 at 0412, Until 06/12/25 at 0415, Ezequiel Goins: cabinet override Started by Another Clinician 06/12/2025 4:15 AM CDT 1.5 mg amiodarone in dextrose (ISO-OSM) (NEXTERONE) 360 mg/200 mL (1.8 mg/mL) IV infusion 0.5 mg/min (16.6667 mL/hr, rounded to 16.67 mL/hr), IV, CONTINUOUS, Starting on 06/12/25 at 0700, Until 06/21/25 at 1144 Restarted 06/21/2025 10:09 AM CDT 0.5 mg/min 16.67 mL/hr Rate Verify 06/21/2025 7:41 AM CDT 0.5 mg/min 16.67 mL/hr New Bag 06/21/2025 1:08 AM CDT 0.5 mg/min 16.67 mL/hr apixaban (ELIQUIS) tablet 10 mg 10 mg, Oral, TWO TIMES DAILY, 14 doses, First dose on [place]ora 06/24/25 at 2000, Last dose on Nora 07/01/25 at 0900, Routine, Indication: TREATMENT for VTE/PE/DVT Given 06/27/2025 8:43 AM CONTINUOUS MINER OPERATOR HELPER 10 mg Given 06/26/2025 8:13 PM CDT 10 mg Given 06/26/2025 8:42 AM CDT 10 mg apixaban (ELIQUIS) tablet 5 mg 5 mg, Oral, TWO TIMES DAILY, First dose on [place]ora 07/01/25 at 2100, Until Discontinued, Routine, Indication: TREATMENT for VTE/PE/DVT aspirin (SNOW CHEWABLE) chewable tablet 81 mg 81 mg, Oral, DAILY, First dose on 06/12/25 at 0900, Until Discontinued, Routine, Post-Procedure (Invasive Cardiology) Given 06/27/2025 8:40 AM CONTINUOUS MINER OPERATOR HELPER 81 mg Given 06/26/2025 8:42 AM CDT 81 mg Given 06/25/2025 8:07 AM CDT 81 mg aspirin (SNOW) tablet 325 mg 325 mg, NG Tube, ONE TIME ONLY, 1 dose, On 06/12/25 at 0245, Stat Admin by Another Clinician (Comment) 06/12/2025 2:08 AM CDT 325 mg ASPIRIN 81 MG CHEWABLE TABLET (CABINET OVERRIDE) 1 dose, Starting on 06/12/25 at 0138, Until 06/12/25 at 0145, Ileana Aldrich: cabinet override Admin by Another Clinician (Comment) 06/12/2025 1:45 AM CDT 81 mg atropine injection 0.5 mg 0.5 mg, IV, EVERY 5 MINUTES PRN, 3 doses, Starting on 06/14/25 at 0245, Until 06/27/25 at 1559, Heart Rate, Bradycardia, Routine, Post-Procedure (Invasive Cardiology) barium sulfate (VARIBAR PUDDING) oral paste 90 mL 90 mL, Oral, INTRA-PROCEDURE ONCE, 1 dose, Starting on Nora 06/24/25 at 1147, Until [place] 06/24/25 at 1147, Routine Given 06/24/2025 11:47 AM CDT 90 mL barium sulfate (VARIBAR THIN LIQUID) 40% w/v from 81% w/w oral powder 74 Gram 74 Gram, Oral, INTRA-PROCEDURE ONCE, 1 dose, Starting on Nora 06/24/25 at 1147, Until [place] 06/24/25 at 1147, Routine Given 06/24/2025 11:47 AM CDT 74 Grams CALCIUM CHLORIDE 100 MG/ML (10 %) INTRAVENOUS SYRINGE (CABINET OVERRIDE) 1 dose, Starting on 06/12/25 at 0419, Until 06/12/25 at 0430, Alin Garcia: cabinet override Admin by Another Clinician (Comment) 06/12/2025 4:30 AM CDT 100 mg calcium GLUCONATE 2,000 mg in sodium chloride (iso-osmotic) 100 mL IVPB 2,000 mg, IV, ONE TIME ONLY, 1 dose, On 06/13/25 at 1430, Routine New Bag 06/13/2025 2:44 PM CDT 2,000 mg 200 mL/hr calcium GLUCONATE 2,000 mg in sodium chloride (iso-osmotic) 100 mL IVPB 2,000 mg, IV, ONE TIME ONLY, 1 dose, On 06/14/25 at 1345, Routine New Bag 06/14/2025 2:15 PM CDT 2,000 mg 200 mL/hr cefePIME (MAXIPIME) 1,000 mg in sodium chloride 0.9% 50 mL IVPB (MBP) 1,000 mg, IV, EVERY 12 HOURS (BlD), First dose on Sat06/12/25 at 1515, Until Discontinued, Routine, Antibiotic Indication: Suspected Sepsis, Unknown Source New 06/13/2025 4:11 AM CDT 1,000 mg 118 mL/hr 06/12/2025 3:36 PM CDT 1,000 mg 118 mL/hr cefePIME (MAXIPIME) 2,000 mg in sodium chloride 0.9% 50 mL IVPB (MBP) 2,000 mg, IV, EVERY 8 HOURS, First dose (after last modification) on Sat06/13/25 at 1300, Until Discontinued, Routine, Antibiotic Indication: Suspected Sepsis, Unknown Source New 06/15/2025 5:03 AM CDT 2,000 mg 118 mL/hr 06/14/2025 8:20 PM CDT 2,000 mg 118 mL/hr 06/14/2025 1:37 PM CDT 2,000 mg 118 mL/hr cefTRIAXone (ROCEPHIN) 2,000 mg in sodium chloride 0.9% 50 mL IVPB (MBP) 2,000 mg, IV, EVERY 12 HOURS (BlD), 7 doses, First dose on Sat06/15/25 at 1300, Last dose on Sat06/18/25 at 0900, Routine, Antibiotic Indication: Pneumonia - Community-acquired(CAP) 06/18/2025 9:21 AM CDT 2,000 mg 118 m L/hr 06/17/2025 8:02 PM CDT 2,000 mg 118 mL/hr 06/17/2025 8:40 AM CDT 2,000 mg 118 mL/hr clonazePAM (KlonoPIN) tablet 0.25 mg 0.25 mg, Oral, EVERY 8 HOURS, First dose on Sat06/21/25 at 0815, Until Discontinued, Routine Given 06/21/2025 8:10 AM CDT 0.25 mg clonazePAM (KlonoPIN) tablet 0.25 mg 0.25 mg, Oral, EVERY 8 HOURS PRN, Starting on Sat06/21/25 at 1300, Until Sat06/22/25 at 0841, Anxiety, Other (See Comment), agitation, Routine Given 06/21/2025 11:02 PM CDT 0.25 mg Given 06/21/2025 2:01 PM CDT 0.25 mg clonazePAM (KlonoPIN) tablet 0.25 mg 0.25 mg, Oral, EVERY 6 HOURS, First dose (after last modification) on Sat06/22/25 at 0845, Until Discontinued, Routine Given 06/22/2025 9:02 AM CDT 0.25 mg clonazePAM (KlonoPIN) tablet 0.25 mg 0.25 mg, Oral, EVERY 6 HOURS PRN, Starting on Sat06/22/25 at 1130, Until Sat06/27/25 at 1559, Anxiety, Routine Given 06/27/2025 7:52 AM CONTINUOUS MINER OPERATOR HELPER 0.25 mg Given 06/24/2025 3:34 AM CDT 0.25 mg Given 06/22/2025 11:18 PM CDT 0.25 mg dexmedeTOMIDine in dextrose 5% (PRECEDEX) 400 mcg/100 mL (4 mcg/mL) infusion 0-2 mcg/kg/hr 105.3 kg (0-52.65 mL/hr), IV, TITRATE, Starting on Sat06/15/25 at 0800, Until Sat06/22/25 at 0843, Should this infusion be titrated? Yes, Initial infusion dose? 0.2 mcg/kg/hr, Titration Dose Increment? 0.2 mcg/kg/hr, Titration Interval? 30 minutes, RASS Goal? -2 to 0 Rate Verify 06/22/2025 9:07 AM CDT 1.4 mcg/kg/hr 36.86 mL/hr Bag Switched 06/22/2025 8:55 AM CDT 1.4 mcg/kg/hr 36.86 mL /hr New Bag 06/22/2025 5:37 AM CDT 1.4 mcg/kg/hr 36.86 mL/h r dexmedeTOMIDine in dextrose 5% (PRECEDEX) 400 mcg/100 mL (4 mcg/mL) infusion 0-0.8 mcg/kg/hr 105.3 kg (0-21.06 mL/hr), IV, TITRATE, Starting on Sat06/22/25 at 0845, Until Sat06/25/25 at 1509, Should this infusion be titrated? Yes, Initial infusion dose? 0.2 mcg/kg/hr, Titration Dose Increment? 0.2 mcg/kg/hr, Titration Interval? 30 minutes, RASS Goal? -2 to 0 Rate Verify 06/25/2025 2:23 AM CDT 0.2 mcg/kg/hr 5.27 mL/hr Rate Change 06/25/2025 1:36 AM CDT 0.2 mcg/kg/hr 5.27 mL/h r Rate Verify 06/24/2025 10:32 PM CDT 0.4 mcg/kg/hr 10.53 mL /hr dextrose 5 % - sodium chloride 0.9 % infusion IV, at 40 mL/hr, SEE ADMIN INSTRUCTIONS, Starting on Tu06/15/25 at 1025, Until 06/27/25 at 1559, Routine dextrose 5 % in water 250 mL flush bag 25 mL 25 mL, IV, SEE ADMIN INSTRUCTIONS, Starting on 06/14/25 at 0245, Until 06/27/25 at 1559, Routine, Post-Procedure (Invasive Cardiology) EPINEPHrine 4 mg/250 mL (16 mcg/mL) in sodium chloride 0.9% infusion 0-0.8 mcg/kg/min 97.1 kg (0-291.3 mL/hr), IV, TITRATE, Starting on 06/12/25 at 0230, Until Sat06/15/25 at 1107, Should this infusion be titrated? Yes, Is this a CABG patient? No, Initial infusion dose? 0.05 mcg/kg/min, Titration Dose Increment? 0.05 mcg/kg/min, Titration Interval? 10 minutes, Goal Type? MAP Goal, MAP Goal? 65-75 Rate Change 06/13/2025 9:45 PM CDT 0.02 mcg/kg/min 7.28 mL/hr Rate Change 06/13/2025 9:00 PM CDT 0.03 mcg/kg/min 10.91 m L/hr Rate Verify 06/13/2025 8:59 PM CDT 0.04 mcg/kg/min 14.55 m L/hr famotidine PF (PEPCID) 20 mg in sodium chloride 0.9% 10 mL injection 20 mg, IV, TWO TIMES DAILY, First dose on 06/12/25 at 0900, Until Discontinued, Routine Given 06/19/2025 9:3 3 PM CDT 20 mg Given 06/19/2025 9:00 AM CDT 20 mg Given 06/18/2025 10:47 PM CDT 20 mg fentaNYL (PF) 1,500 mcg/30 mL (50 mcg/mL) intravenous solution 0-150 mcg/hr (0-3 mL/hr), IV, TITRATE, Starting on 06/18/25 at 1315, Until 06/19/25 at 1923, Should this infusion be titrated? Yes, Initial infusion dose? 25 mcg/hr, Titration Dose Increment? 12.5 mcg/hr, Titration Interval? 10 minutes, Goal Type? RASS Goal, RASS Goal? -2 to 0 Rate Verify 06/19/2025 6:00 AM CDT 150 mcg/hr 3 mL/hr New Bag 06/18/2025 11:22 PM CDT 150 mcg/hr 3 mL/hr Rate Change 06/18/2025 6:28 PM CDT 75 mcg/hr 1.5 mL/hr furosemide (LASIX) injection 40 mg 40 mg, IV, TWO TIMES DAILY, 7 HOURS APART, First dose on 06/20/25 at 0830, Until Discontinued, Routine Given 06/25/2025 8:09 AM CDT 40 mg Given 06/24/2025 2:53 PM CDT 40 mg Given 06/24/2025 9:01 AM CDT 40 mg furosemide (LASIX) injection 60 mg 60 mg, IV, ONE TIME ONLY, 1 dose, On 06/14/25 at 1045, Routine Given 06/14/2025 11:23 AM CDT 60 mg furosemide (LASIX) injection 60 mg 60 mg, IV, ONE TIME ONLY, 1 dose, On 06/15/25 at 1115, Routine Given 06/15/2025 11:23 AM CDT 60 mg furosemide (LASIX) injection 60 mg 60 mg, IV, ONE TIME ONLY, 1 dose, On [place] 06/17/25 at 1200, Routine Given 06/17/2025 12:38 PM CDT 60 mg furosemide (LASIX) injection 60 mg 60 mg, IV, TWO TIMES DAILY, 7 HOURS APART, 2 doses, First dose (after last reorder) on Sat06/18/25 at 1030, Last dose on Sat06/18/25 at 1500, Routine Given 06/18/2025 11:02 AM CDT 60 mg furosemide (LASIX) injection 60 mg 60 mg, IV, EVERY 6 HOURS, 2 doses, First dose (after last reorder) on Sat06/19/25 at 1200, Last dose on Sat06/19/25 at 1800, Routine Given 06/19/2025 8:07 PM CDT 6 0 mg Given 06/19/2025 12:25 PM CDT 60 mg furosemide (LASIX) tablet 40 mg 40 mg, Oral, DAILY, First dose on Sat06/26/25 at 0900, Until Discontinued, Routine Given 06/27/2025 8:42 AM CONTINUOUS MINER OPERATOR HELPER 40 mg Given 06/26/2025 8:42 AM CDT 40 mg gabapentin (NEURONTIN) 300 mg/6 mL (6 mL) oral solution 400 mg 400 mg, Oral, EVERY 8 HOURS, First dose on Sat06/22/25 at 0845, Until Discontinued, Routine Given 06/26/2025 4:05 AM CDT 400 mg Given 06/25/2025 8:22 PM CDT 400 mg Given 06/25/2025 12:15 PM CDT 400 mg heparin in 0.45% NaCl 25,000 unit/250 mL infusion 12 Units/kg/hr 97.1 kg (11.652 mL/hr, rounded to 11.7 mL/hr), IV, TITRATE, Starting on 06/12/25 at 0345, Until 06/12/25 at 1408, Indication: Other (see comments), Anticoagulant Indication: IABP in place, Dosing by: PER PROTOCOL: Delegate to facility protocol per indication, Re-bolus within Protocol? Yes, allow re-bolus New Bag 06/12/2025 7:11 AM CDT 12 Units/kg/hr 11.7 mL/hr heparin in 0.45% NaCl 25,000 unit/250 mL infusion 12 Units/kg/hr 97.1 kg (11.652 mL/hr, rounded to 11.7 mL/hr), IV, TITRATE, Starting on 06/12/25 at 1515, Until [place] 06/13/25 at 1412, Indication: Other (see comments), Anticoagulant Indication: IABP in place, Dosing by: PER PROTOCOL: Delegate to facility protocol per indication, Re-bolus within Protocol? Yes, allow re-bolus Restarted 06/13/2025 11:30 AM CDT 12 Units/kg/hr 11.7 mL/hr Rate Change 06/13/2025 4:41 AM CDT 12 Units/kg/hr 11.7 mL/ hr Rate Change 06/12/2025 10:05 PM CDT 11 Units/kg/hr 10.7 mL /hr heparin in 0.45% NaCl 25,000 unit/250 mL infusion 20 Units/kg/hr 83.2 kg Adjusted weight (16.64 mL/hr, rounded to 16.6 mL/hr), IV, TITRATE, Starting on Sat06/14/25 at 1415, Until 06/20/25 at 0828, Indication: Other (see comments), Anticoagulant Indication: IABP in place, Dosing by: PER PROTOCOL: Delegate to facility protocol per indication, Re-bolus within Protocol? Yes, allow re-bolus Rate Verify 06/19/2025 7:50 AM CDT 20 Units/kg/hr 16.6 mL/hr Rate Verify 06/19/2025 4:45 AM CDT 20 Units/kg/hr 16.6 mL/ hr Rate Verify 06/18/2025 6:18 PM CDT 20 Units/kg/hr 16.6 mL/ hr heparin in 0.45% NaCl 25,000 unit/250 mL infusion 22 Units/kg/hr 94 kg (20.68 mL/hr, rounded to 20.7 mL/hr), IV, TITRATE, Starting on 06/22/25 at 1815, Until [place] 06/24/25 at 1712, Indication: A Fib, Dosing by: PER PROTOCOL: Delegate to facility protocol per indication, Re-bolus within Protocol? Yes, allow re-bolus Restarted 06/24/2025 1:59 PM CDT 22 Units/kg/hr 20.7 mL/hr Restarted 06/24/2025 1:05 PM CDT 22 Units/kg/hr 20.7 mL/h r Restarted 06/24/2025 12:21 PM CDT 22 Units/kg/hr 20.7 mL/ hr heparin in 0.45% NaCl 25,000 unit/250 mL infusion 24 Units/kg/hr 94 kg (22.56 mL/hr, rounded to 22.6 mL/hr), IV, TITRATE, Starting on Nora 06/24/25 at 1715, Until [place]ora 06/24/25 at 1900, Indication: Acute or Chronic VTE/PE/DVT, Dosing by: PER PROTOCOL: Delegate to facility protocol per indication, Re-bolus within Protocol? Yes, allow re-bolus New Bag 06/24/2025 6:02 PM CDT 24 Units/kg/hr 22.6 mL/hr heparin injection 1,200 Units 1,200 Units (rounded from 1,248 Units = 15 Units/kg 83.2 kg Adjusted weight), IV, ONE TIME ONLY, 1 dose, On Sat06/14/25 at 2130, Routine Given 06/14/2025 9:36 PM CDT 1,200 Units heparin injection 1,200 Units 1,200 Units (rounded from 1,248 Units = 15 Units/kg 83.2 kg Adjusted weight), IV, ONE TIME ONLY, 1 dose, On Sat06/15/25 at 0500, Routine Given 06/15/2025 4:59 AM CDT 1,200 Units heparin injection 1,200 Units 1,200 Units (rounded from 1,248 Units = 15 Units/kg 83.2 kg Adjusted weight), IV, ONE TIME ONLY, 1 dose, On Sat06/15/25 at 1845, Routine Given 06/15/2025 6:55 PM CDT 1,200 Units heparin injection 1,200 Units 1,200 Units (rounded from 1,248 Units = 15 Units/kg 83.2 kg Adjusted weight), IV, ONE TIME ONLY, 1 dose, On Sat06/16/25 at 0100, Routine Given 06/16/2025 1:02 AM CDT 1,200 Units heparin injection 1,200 Units 1,200 Units, IV, ONE TIME ONLY, 1 dose, On [place] 06/17/25 at 1045, Routine Given 06/17/2025 10:42 AM CDT 1,200 Units heparin injection 1,300 Units 1,300 Units (rounded from 1,258.5 Units = 15 Units/kg 83.9 kg Adjusted weight), IV, ONE TIME ONLY, 1 dose, On Sat06/16/25 at 0730, Routine Given 06/16/2025 7:29 AM CDT 1,300 Units heparin injection 1,300 Units 1,300 Units (rounded from 1,258.5 Units = 15 Units/kg 83.9 kg Adjusted weight), IV, ONE TIME ONLY, 1 dose, On Sat06/16/25 at 1430, Routine Given 06/16/2025 2:28 PM CDT 1,300 Units heparin injection 1,300 Units 1,300 Units (rounded from 1,258.5 Units = 15 Units/kg 83.9 kg Adjusted weight), IV, ONE TIME ONLY, 1 dose, On Sat06/16/25 at 2100, Routine Given 06/16/2025 9:06 PM CDT 1,300 Units heparin injection 1,300 Units 1,300 Units (rounded from 1,258.5 Units = 15 Units/kg 83.9 kg Adjusted weight), IV, ONE TIME ONLY, 1 dose, On Sat06/17/25 at 0345, Routine Given 06/17/2025 3:56 AM CDT 1,300 Units heparin injection 1,400 Units 1,400 Units, IV, ONE TIME ONLY, 1 dose, On Sat06/24/25 at 0445, Routine Given 06/24/2025 5:04 AM CDT 1,400 Units heparin injection 1,500 Units 1,500 Units (rounded from 1,456.5 Units = 15 Units/kg 97.1 kg), IV, ONE TIME ONLY, 1 dose, On Sat06/13/25 at 0445, Routine Given 06/13/2025 4:51 AM CDT 1,500 Units heparin injection 1,500 Units 1,500 Units (rounded from 1,498.5 Units = 15 Units/kg 99.9 kg), IV, ONE TIME ONLY, 1 dose, On Sat06/18/25 at 0945, Routine Given 06/18/2025 10:18 AM CDT 1,500 Units heparin injection 2,600 Units 2,600 Units (rounded from 2,580 Units = 30 Units/kg 86 kg), IV, ONE TIME ONLY, 1 dose, On Sat06/23/25 at 1415, Routine Given 06/23/2025 2:30 PM CDT 2,600 Units heparin injection 2,600 Units 2,600 Units (rounded from 2,580 Units = 30 Units/kg 86 kg), IV, ONE TIME ONLY, 1 dose, On Sat06/23/25 at 2230, Routine Given 06/23/2025 11:41 PM CDT 2,600 Units heparin injection 2,800 Units 2,800 Units, IV, ONE TIME ONLY, 1 dose, On Sat06/23/25 at 0430, Routine Given 06/23/2025 4:41 AM CDT 2,800 Units heparin injection 2,900 Units 2,900 Units (rounded from 2,913 Units = 30 Units/kg 97.1 kg), IV, ONE TIME ONLY, 1 dose, On 06/12/25 at 2215, Routine Given 06/12/2025 10:24 PM CDT 2,900 Units heparin injection 4,000 Units 4,000 Units, IV, ONE TIME ONLY, 1 dose, On Sat06/12/25 at 0245, Stat Admin by Another Clinician (Comment) 06/12/2025 2:45 AM CDT 4,000 Units heparin injection 5,000 Units 5,000 Units, subCUT, EVERY 8 HOURS, First dose on 06/20/25 at 0845, Until Discontinued, Routine Given 06/22/2025 1:14 PM CDT 5,000 Units Abdomen, Right Lower Quadrant Given 06/22/2025 4:21 AM CDT 5,000 Units A bdomen, Right Lower Quadrant Given 06/21/2025 8:22 PM CDT 5,000 Units A bdomen, Right Upper Quadrant heparin injection 5,600 Units 5,600 Units (rounded from 5,640 Units = 60 Units/kg 94 kg), IV, ONE TIME ONLY, 1 dose, On Sat06/22/25 at 1815, RoutineIndications:Atrial Fibrillation Given 06/22/2025 6:24 PM CDT 5,600 Units HYDROmorphone (PF) in NS (DILAUDID) 30 mg/30 mL (1 mg/mL) intravenous solution 0-1.2 mg/hr (0-1.2 mL/hr), IV, TITRATE, Starting on Sat06/12/25 at 0800, Until Sat06/18/25 at 0902, Should this infusion be titrated? Yes, Initial infusion dose? 0.2 mg/hr, Titration Dose Increment? 0.1 mg/hr, Titration Interval? 10 minutes, Goal Type? RASS Goal, RASS Goal? -2 to 0 Rate Change 06/18/2025 10:21 AM CDT 0.4 mg/hr 0.4 mL/hr Rate Change 06/18/2025 9:02 AM CDT 0.8 mg/hr 0.8 mL/hr Rate Change 06/18/2025 8:48 AM CDT 1 mg/hr 1 mL/hr insulin lispro (HumaLOG,ADMELOG) injection 0-18 Units 0-18 Units, subCUT, EVERY 4 HOURS, First dose on Sat06/15/25 at 1200, Until Discontinued, Routine Given 06/26/2025 8:19 PM CDT 3 Units Abdominal Tissue Given 06/26/2025 5:41 PM CDT 6 Units Ab dominal Tissue Given 06/25/2025 8:21 PM CDT 3 Units Ar m, Left insulin regular (HumuLIN R,NovoLIN R) 1 Units/mL in sodium chloride 0.9 % infusion 0-25 Units/hr (0-25 mL/hr), IV, TITRATE, Starting on 06/12/25 at 1030, Until Tu06/15/25 at 1025 Rate Change 06/15/2025 9:47 AM CDT 1 Units/hr 1 mL/hr Rate Verify 06/14/2025 4:19 AM CDT 0.5 Units/hr 0.5 mL/hr Rate Verify 06/14/2025 3:32 AM CDT 0.5 Units/hr 0.5 mL/hr iopamidoL (ISOVUE-300) 61% injection (drawn from multi-use bulk pack) 100 mL 100 mL, IV, INTRA-PROCEDURE ONCE, 1 dose, Starting on Sat06/25/25 at 2155, Until Sat06/25/25 at 2155, Routine Contrast Given 06/25/2025 9:55 PM CDT 100 mL iopamidoL (ISOVUE-300) 61% injection (drawn from multi-use bulk pack) 100 mL 100 mL, IV, INTRA-PROCEDURE ONCE, 1 dose, Starting on Sat06/25/25 at 2312, Until Sat06/25/25 at 2312, Routine Contrast Given 06/25/2025 11:12 PM CDT 100 mL iopamidoL (ISOVUE-300) 61% injection (drawn from multi-use bulk pack) 85 mL 85 mL, IV, INTRA-PROCEDURE ONCE, 1 dose, Starting on [place] 06/24/25 at 2145, Until [place] 06/27/25 at 1559, Routine ketamine 1,000 mg in sodium chloride 0.9 % 500 mL infusion 0-1 mg/kg/hr 98.5 kg (0-49.25 mL/hr, rounded to 0-49.3 mL/hr), IV, TITRATE, Starting on 06/19/25 at 1915, Until Tu06/22/25 at 0840 Rate Change 06/21/2025 10:51 AM CDT 0.2 mg/kg/hr 9.9 mL/hr Rate Change 06/21/2025 10:33 AM CDT 0.5 mg/kg/hr 24.6 mL/h r Rate Change 06/21/2025 10:28 AM CDT 0.8 mg/kg/hr 39.4 mL/h r ketamine 10 mg/mL injection 100 mg 100 mg, IV, ONE TIME ONLY, 1 dose, On 06/19/25 at 1600, Routine Given 06/19/2025 4:00 PM CDT 100 mg ketamine 10 mg/mL injection 100 mg 100 mg, IV, ONE TIME ONLY, 1 dose, On 06/19/25 at 1800, Routine Given 06/19/2025 6:00 PM CDT 100 mg KETAMINE 10 MG/ML INJECTION SOLUTION (CABINET OVERRIDE) 1 dose, Starting on 06/19/25 at 1655, Until 06/19/25 at 1800, Denisha Thrasher: cabinet override lactulose (ENULOSE) 10 gram/15 mL oral solution 45 mL 45 mL, Oral, ONE TIME ONLY, 1 dose, On Sat06/14/25 at 0815, Routine Given 06/14/2025 8:17 AM CDT 45 mL lactulose (ENULOSE) 10 gram/15 mL oral solution 45 mL 45 mL, Oral, THREE TIMES DAILY, 3 doses, First dose on Sat06/17/25 at 1300, Last dose on Sat06/18/25 at 0900, Routine Given 06/18/2025 8:18 AM CDT 45 mL Given 06/17/2025 8:00 PM CDT 45 mL Given 06/17/2025 12:38 PM CDT 45 mL LIDOCAINE (PF) 4 MG/ML (0.4 %) IN 5 % DEXTROSE INTRAVENOUS SOLUTION (CABINET OVERRIDE) 1 dose, Starting on 06/12/25 at 0410, Until 06/12/25 at 0410 LIDOCAINE HCL 20 MG/ML (2 %) INJECTION SOLUTION (CABINET OVERRIDE) 1 dose, Starting on 06/19/25 at 1407, Until 06/19/25 at 1415, Dede Yee R: cabinet override Given 06/19/2025 2:15 PM CDT 20 mL lidocaine in dextrose 5% 4 mg/mL (0.4 %) infusion 1 mg/min (15 mL/hr), IV, CONTINUOUS, Starting on 06/12/25 at 0700, Until 06/14/25 at 1613 Rate Change 06/14/2025 7:29 AM CDT 0.5 mg/min 7.5 mL/hr Rate Verify 06/14/2025 4:19 AM CDT 1 mg/min 15 mL/hr Rate Verify 06/14/2025 2:35 AM CDT 1 mg/min 15 mL/hr losartan (COZAAR) tablet 12.5 mg 12.5 mg, Oral, DAILY, First dose on Sat06/22/25 at 0930, Until Discontinued, Routine Given 06/27/2025 8:46 AM CONTINUOUS MINER OPERATOR HELPER 12.5 mg Given 06/26/2025 8:41 AM CDT 12.5 mg Feeding Started 06/25/2025 8:07 AM CDT 12.5 mg magnesium SULFATE in water 2 gram/50 mL (4 %) IVPB 2 Gram 2 Gram, IV, ONE TIME ONLY, 1 dose, On 06/13/25 at 0530, Routine Rate Verify 06/13/2025 6:25 AM CDT 2 5 mL/hr Rate Verify 06/13/2025 5:57 AM CDT 25 mL/hr Rate Verify 06/13/2025 5:49 AM CDT 25 mL/hr methylnaltrexone (RELISTOR) 12 mg/0.6 mL injection 12 mg 12 mg, subCUT, ONE TIME ONLY, 1 dose, On Sat06/18/25 at 0815, Routine Given 06/18/2025 9:27 AM CDT 12 mg Abdomen, Left Lower Quadrant metoclopramide (REGLAN) 5 mg/mL injection 5 mg 5 mg, IV, ONE TIME ONLY, 1 dose, On 06/12/25 at 2300, Routine Given 06/12/2025 11:03 PM CDT 5 mg metoprolol tartrate (LOPRESSOR) tablet 12.5 mg 12.5 mg, Oral, TWO TIMES DAILY, First dose on Sat06/22/25 at 2100, Until Discontinued, Routine Given 06/26/2025 8:41 AM CDT 12.5 mg Given 06/25/2025 8:25 PM CDT 12.5 mg Given 06/25/2025 8:07 AM CDT 12.5 mg midazolam (VERSED) 150 mg/30 mL (5 mg/mL) syringe 0-6 mg/hr (0-1.2 mL/hr), IV, TITRATE, Starting on Sat06/12/25 at 1115, Until Sat06/14/25 at 1616, Should this infusion be titrated? Yes, Initial infusion dose? 1 mg/hr, Titration Dose Increment? 1 mg/hr, Titration Interval? 30 minutes, RASS Goal? -2 to 0 Rate Change 06/14/2025 7:36 AM CDT 0.5 mg/hr 0.1 mL/hr Rate Change 06/13/2025 6:22 PM CDT 1 mg/hr 0.2 mL/hr New Bag 06/12/2025 11:37 AM CDT 2 mg/hr 0.4 mL/hr midazolam (VERSED) 150 mg/30 mL (5 mg/mL) syringe 0-6 mg/hr (0-1.2 mL/hr), IV, TITRATE, Starting on Sat06/15/25 at 1930, Until Sat06/18/25 at 0902, Should this infusion be titrated? Yes, Initial infusion dose? 1 mg/hr, Titration Dose Increment? 1 mg/hr, Titration Interval? 30 minutes, RASS Goal? -2 to 0 Rate Change 06/17/2025 6:00 PM CDT 1 mg/hr 0.2 mL/hr Continue from Pre-Op 06/17/2025 3:02 PM CDT 2 mg/hr 0.4 mL/hr New Bag 06/15/2025 7:36 PM CDT 2 mg/hr 0.4 mL/hr midazolam (VERSED) injection 1 mg 1 mg, IV, EVERY 4 HOURS PRN, Starting on Sat06/15/25 at 1239, Until Sat06/19/25 at 1923, Anxiety, Ventilator Assist, Routine Given 06/19/2025 3:18 PM CDT 1 mg Given 06/19/2025 5:34 AM CDT 1 mg Given 06/19/2025 12:58 AM CDT 1 mg midazolam (VERSED) injection 2 mg 2 mg, IV, ONE TIME ONLY, 1 dose, On Sat06/15/25 at 1200, Routine Given 06/15/2025 12:00 PM CDT 2 mg midazolam (VERSED) injection 4 mg 4 mg, IV, EVERY 4 HOURS PRN, Starting on Sat06/14/25 at 1716, Until Sat06/15/25 at 1239, Anxiety, Ventilator Assist, Routine Given 06/15/2025 5:08 AM CDT 4 mg Given 06/15/2025 1:04 AM CDT 4 mg Given 06/14/2025 7:22 PM CDT 4 mg naloxone (NARCAN) 0.4 mg/mL injection 0.1-0.4 mg 0.1-0.4 mg, IV, SEE ADMIN INSTRUCTIONS, Starting on 06/12/25 at 0529, Until Sat06/27/25 at 1559, Routine, Post-Procedure (Invasive Cardiology) naloxone (NARCAN) 0.4 mg/mL injection 0.1-0.4 mg 0.1-0.4 mg, IV, SEE ADMIN INSTRUCTIONS, Starting on 06/12/25 at 0449, Until Sat06/27/25 at 1559, Routine nitroglycerin (NITROSTAT) tablet 0.4 mg 0.4 mg, Sublingual, EVERY 5 MINUTES PRN, 3 doses, Starting on Sat06/14/25 at 0245, Until Sat06/27/25 at 1559, Chest Pain, Not to exceed 3 doses, notify physician if chest pain not relieved, hold if systolic BP less than or equal to 90 mmHg, Routine, Post-Procedure (Invasive Cardiology) norepinephrine bitartrate-D5W (LEVOPHED) 8 mg/250 mL (32 mcg/mL) infusion 0-0.2 mcg/kg/min 97.1 kg (0-36.4125 mL/hr, rounded to 0-36.41 mL/hr), IV, TITRATE, Starting on 06/12/25 at 0230, Until Sat06/15/25 at 1107, Should this infusion be titrated? Yes, Is this a CABG patient? Yes, Initial infusion dose? 0.02 mcg/kg/min, Titration Dose Increment? 0.02 mcg/kg/min, Titration Interval? 5 minutes, Goal Type? MAP Goal, MAP Goal? 65-75 Rate Verify 06/15/2025 11:07 AM CDT 0.027 mcg/kg/min 5 mL/hr Rate Verify 06/15/2025 10:16 AM CDT 0.027 mcg/kg/min 5 mL/ hr Rate Change 06/13/2025 10:55 PM CDT 0.02 mcg/kg/min 3.64 m L/hr norepinephrine bitartrate-D5W (LEVOPHED) 8 mg/250 mL (32 mcg/mL) infusion 0-0.2 mcg/kg/min 105.3 kg (0-39.4875 mL/hr, rounded to 0-39.49 mL/hr), IV, TITRATE, Starting on 06/15/25 at 1330, Until 06/19/25 at 1133, Should this infusion be titrated? Yes, Is this a CABG patient? No, Initial infusion dose? 0.05 mcg/kg/min, Titration Dose Increment? 0.05 mcg/kg/min, Titration Interval? 10 minutes, Goal Type? MAP Goal, MAP Goal? 65-75 Rate Verify 06/15/2025 5:17 PM CDT 0.02 mcg/kg/min 3.95 mL/hr Rate Verify 06/15/2025 3:47 PM CDT 0.02 mcg/kg/min 3.95 mL /hr New Bag 06/15/2025 1:28 PM CDT 0.02 mcg/kg/min 3.95 mL/ hr OLANZapine (ZyPREXA) 10 mg in sterile water 2 mL injection 10 mg, IM, ONE TIME ONLY, 1 dose, On 06/19/25 at 1745, Routine Given 06/19/2025 5:00 PM CDT 10 mg Other (Comment) OLANZAPINE 10 MG INTRAMUSCULAR SOLUTION (CABINET OVERRIDE) 1 dose, Starting on 06/19/25 at 1655, Until 06/19/25 at 1922, Denisha Thrasher L: cabinet override Given 06/19/2025 7:22 PM CDT 10 mg ondansetron (ZOFRAN) 4 mg/2 mL injection 4 mg 4 mg, IV, EVERY 6 HOURS PRN, Starting on Sat06/13/25 at 0045, Until 06/27/25 at 1559, Nausea/Emesis, Routine, Post-op - Floor perflutren lipid microspheres (DEFINITY) 1.3 mL in sodium chloride 0.9% 10 mL injection 0-10 mL, IV, INTRA-PROCEDURE ONCE, 1 dose, Starting on Sat06/27/25 at 1043, Until Sat06/27/25 at 1030, Routine Contrast Given 06/27/2025 10:30 AM CONTINUOUS MINER OPERATOR HELPER 3 mL polyethylene glycol (MIRALAX) packet 17 Gram 17 Gram, NG Tube, DAILY PRN, Starting on Sat06/13/25 at 0045, Until Sat06/14/25 at 0812, Constipation, Routine, Post-op - Floor Given 06/13/2025 8:38 AM CDT 17 Grams polyethylene glycol (MIRALAX) packet 17 Gram 17 Gram, Oral, TWO TIMES DAILY, First dose on Sat06/14/25 at 0900, Until Discontinued, Routine Given 06/26/2025 8:13 PM CDT 17 Grams Given 06/24/2025 9:01 AM CDT 17 Grams Given 06/23/2025 9:46 PM CDT 17 Grams potassium BICARBONATE-citric acid (EFFER-K) tablet 40 mEq 40 mEq, Oral, ONE TIME ONLY, 1 dose, On Sat06/15/25 at 2100, Routine Given 06/15/2025 9:07 PM CDT 40 mEq potassium BICARBONATE-citric acid (EFFER-K) tablet 40 mEq 40 mEq, Oral, ONE TIME ONLY, 1 dose, On Sat06/16/25 at 0545, Routine Given 06/16/2025 5:45 AM CDT 40 mEq potassium BICARBONATE-citric acid (EFFER-K) tablet 40 mEq 40 mEq, Oral, ONE TIME ONLY, 1 dose, On Sat06/17/25 at 0500, Routine Given 06/17/2025 5:02 AM CDT 40 mEq potassium BICARBONATE-citric acid (EFFER-K) tablet 40 mEq 40 mEq, NG Tube, EVERY 4 HOURS, 2 doses, First dose on Sat06/18/25 at 1900, Last dose on Sat06/19/25 at 0000, Routine Given 06/18/2025 11:22 PM CDT 40 mE q Given 06/18/2025 8:08 PM CDT 40 mEq potassium BICARBONATE-citric acid (EFFER-K) tablet 40 mEq 40 mEq, Oral, TWO TIMES DAILY, 2 doses, First dose on 06/19/25 at 0530, Last dose on 06/19/25 at 1800, Routine Given 06/19/2025 9:35 PM CDT 40 mEq Given 06/19/2025 5:30 AM CDT 40 mEq potassium BICARBONATE-citric acid (EFFER-K) tablet 40 mEq 40 mEq, Oral, TWO TIMES DAILY, 2 doses, First dose on 06/20/25 at 0600, Last dose on 06/20/25 at 1800, Routine Given 06/20/2025 5:34 PM CDT 40 mE q Given 06/20/2025 5:07 AM CDT 40 mEq potassium BICARBONATE-citric acid (EFFER-K) tablet 40 mEq 40 mEq, NG Tube, ONE TIME ONLY, 1 dose, On 06/21/25 at 0615, Routine Given 06/21/2025 6:14 AM CDT 40 mEq potassium CHLORIDE 20 mEq/100 mL IVPB 20 mEq 20 mEq, IV, EVERY 2 HOURS, 4 doses, First dose on 06/12/25 at 0800, Last dose on 06/12/25 at 1400, Stat New Bag 06/12/2025 1:26 PM CDT 20 mEq 50 mL/hr New Bag 06/12/2025 11:54 AM CDT 20 mEq 50 mL/hr New Bag 06/12/2025 10:22 AM CDT 20 mEq 50 mL/hr potassium CHLORIDE 20 mEq/100 mL IVPB 20 mEq 20 mEq, IV, EVERY 2 HOURS, 4 doses, First dose on 06/12/25 at 1600, Last dose on 06/12/25 at 2200, Routine Restarted 06/13/2025 2:32 AM CDT 50 mL/hr Restarted 06/13/2025 2:23 AM CDT 50 mL/hr Rate Verify 06/13/2025 1:08 AM CDT 50 mL/hr potassium CHLORIDE 20 mEq/100 mL IVPB 20 mEq 20 mEq, IV, EVERY 2 HOURS, 4 doses, First dose on [place] 06/17/25 at 1900, Last dose on Sat06/18/25 at 0000, Routine New Bag 06/18/2025 2:12 AM CDT 20 mEq 50 mL/hr New Bag 06/17/2025 10:00 PM CDT 20 mEq 50 mL/hr Rate Verify 06/17/2025 9:55 PM CDT 50 mL/hr potassium CHLORIDE 20 mEq/100 mL IVPB 20 mEq 20 mEq, IV, EVERY 2 HOURS, 4 doses, First dose on Sat06/22/25 at 0700, Last dose on Sat06/22/25 at 1300, Routine New Bag 06/22/2025 2:40 PM CDT 20 mEq 50 mL/hr New Bag 06/22/2025 12:09 PM CDT 20 mEq 50 mL/hr New Bag 06/22/2025 9:07 AM CDT 20 mEq 50 mL/hr potassium, sodium PHOSPHATES (PHOS-NaK) 280-160-250 mg oral powder 1 Packet 1 Packet, Oral, ONE TIME ONLY, 1 dose, On Sat06/15/25 at 0615, Routine Given 06/15/2025 6:10 AM CDT 1 Packet potassium, sodium PHOSPHATES (PHOS-NaK) 280-160-250 mg oral powder 1 Packet 1 Packet, Oral, ONE TIME ONLY, 1 dose, On 06/19/25 at 0600, Routine Given 06/19/2025 5:58 AM CDT 1 Packet potassium, sodium PHOSPHATES (PHOS-NaK) 280-160-250 mg oral powder 1 Packet 1 Packet, NG Tube, ONE TIME ONLY, 1 dose, On Sat06/21/25 at 0615, Routine Given 06/21/2025 6:14 AM CDT 1 Packet propofol (DIPRIVAN) 10 mg/mL continuous infusion 0-50 mcg/kg/min 99.9 kg (0-29.97 mL/hr), IV, TITRATE, Starting on Sat06/18/25 at 1645, Until Sat06/19/25 at 1133, Should this infusion be titrated? Yes, Initial infusion dose? 5 mcg/kg/min, Titration Dose Increment? 5 mcg/kg/min, Titration Interval? 10 minutes, RASS Goal? -2 to 0 Rate Verify 06/19/2025 6:00 AM CDT 15 mcg/kg/min 8.99 mL/hr New Bag 06/18/2025 11:21 PM CDT 15 mcg/kg/min 8.99 mL/h r New Bag 06/18/2025 4:36 PM CDT 20 mcg/kg/min 11.99 mL/h r PROPOFOL 10 MG/ML INFUSION WRAPPER (CABINET OVERRIDE) 1 dose, Starting on 06/12/25 at 0354, Until 06/12/25 at 0800 New Bag 06/12/2025 6:15 AM CDT 1,000 mg QUEtiapine (SEROquel) tablet 100 mg 100 mg, Oral, TWO TIMES DAILY, First dose (after last modification) on 06/19/25 at 2100, Until Discontinued, Routine Given 06/19/2025 9:33 PM CDT 100 mg QUEtiapine (SEROquel) tablet 25 mg 25 mg, NG Tube, EVERY 8 HOURS, First dose on 06/13/25 at 2100, Until Discontinued, Routine Given 06/14/2025 12:15 PM CDT 25 mg Given 06/14/2025 5:18 AM CDT 25 mg Given 06/13/2025 9:30 PM CDT 25 mg QUEtiapine (SEROquel) tablet 50 mg 50 mg, NG Tube, EVERY 8 HOURS, First dose (after last modification) on 06/14/25 at 2100, Until Discontinued, Routine Given 06/15/2025 4:59 AM CDT 50 mg Given 06/14/2025 8:16 PM CDT 50 mg QUEtiapine (SEROquel) tablet 50 mg 50 mg, Oral, ONE TIME ONLY, 1 dose, On Sat06/14/25 at 1730, Routine Given 06/14/2025 5:19 PM CDT 50 mg QUEtiapine (SEROquel) tablet 50 mg 50 mg, Oral, EVERY 8 HOURS, First dose on Sat06/21/25 at 0815, Until Discontinued, Routine Given 06/25/2025 5:4 1 AM CDT 50 mg Given 06/24/2025 9:26 PM CDT 50 mg Given 06/24/2025 12:32 PM CDT 50 mg QUEtiapine (SEROquel) tablet 50 mg 50 mg, Oral, TWO TIMES DAILY, First dose (after last modification) on Sat06/25/25 at 2100, Until Discontinued, Routine Given 06/26/2025 8:42 AM CDT 50 mg Given 06/25/2025 8:25 PM CDT 50 mg QUEtiapine (SEROquel) tablet 75 mg 75 mg, NG Tube, EVERY 8 HOURS, First dose (after last modification) on Sat06/15/25 at 1300, Until Discontinued, Routine Given 06/19/2025 4:17 AM CDT 75 mg Given 06/18/2025 8:09 PM CDT 75 mg Given 06/18/2025 1:29 PM CDT 75 mg rocuronium injection 50 mg, IV, ONE TIME ONLY, 1 dose, On 06/13/25 at 1130, Routine Given 06/13/2025 5:11 PM CDT 50 mg rosuvastatin (CRESTOR) tablet 20 mg 20 mg, Oral, DAILY AT BEDTIME, First dose on 06/12/25 at 2100, Until Discontinued, Routine, Post-Procedure (Invasive Cardiology) Given 06/26/2025 8:1 3 PM CDT 20 mg Given 06/25/2025 8:25 PM CDT 20 mg Given 06/24/2025 9:26 PM CDT 20 mg sennosides-docusate sodium (SENNA-S) 8.6-50 mg per tablet 1 Tablet 1 Tablet, NG Tube, TWO TIMES DAILY, First dose on 06/13/25 at 0100, Until Discontinued, Routine, Post-op - Floor Given 06/17/2025 8:21 AM CDT 1 Tab let Given 06/16/2025 8:13 PM CDT 1 Tablet Given 06/16/2025 9:26 AM CDT 1 Tablet sennosides-docusate sodium (SENNA-S) 8.6-50 mg per tablet 1 Tablet 1 Tablet, Oral, TWO TIMES DAILY, First dose on 06/21/25 at 1030, Until Discontinued, Routine Given 06/26/2025 8:13 PM CDT 1 Tablet Given 06/26/2025 8:42 AM CDT 1 Tablet Given 06/25/2025 8:25 PM CDT 1 Tablet sennosides-docusate sodium (SENNA-S) 8.6-50 mg per tablet 2 Tablet 2 Tablet, NG Tube, TWO TIMES DAILY, First dose (after last modification) on [place] 06/17/25 at 2100, Until Discontinued, Routine, Post-op - Floor Given 06/19/2025 9:33 PM CDT 2 Tablets Given 06/18/2025 8:09 PM CDT 2 Tablets Given 06/18/2025 8:18 AM CDT 2 Tablets SODIUM BICARBONATE 1 MEQ/ML (8.4 %) INTRAVENOUS SOLUTION (CABINET OVERRIDE) 1 dose, Starting on 06/12/25 at 0434, Until 06/12/25 at 0445, Jaxon Santana: cabinet override Admin by Another Clinician (Comment) 06/12/2025 4:45 AM CDT 1 mEq/L sodium bicarbonate 1 mEq/mL (8.4 %) vial 100 mEq 100 mEq, IV, ONE TIME ONLY, 1 dose, On 06/12/25 at 1715, Stat Given 06/12/2025 5:09 PM CDT 100 mEq sodium bicarbonate 150 mEq in sterile water 1,150 mL infusion 50 mL/hr, IV, CONTINUOUS, Starting on 06/12/25 at 1800, Until 06/14/25 at 1150, Routine Rate Change 06/13/2025 7:43 AM CDT 50 mL/hr 50 mL/hr Rate Verify 06/13/2025 6:25 AM CDT 100 mL/hr Rate Verify 06/13/2025 5:57 AM CDT 100 mL/hr sodium chloride 0.9 % infusion IV, at 100 mL/hr, CONTINUOUS, Starting on 06/12/25 at 0530, Until 06/12/25 at 1529, Routine, Post-Procedure (Invasive Cardiology) New Bag 06/12/2025 5:54 AM CDT 100 mL/hr sodium chloride flush injection 10 mL 10 mL, IV, EVERY 12 HOURS (BlD), First dose on 06/12/25 at 0900, Until Discontinued, Routine, Post-Procedure (Invasive Cardiology) Given 06/19/2025 8:49 PM CDT 10 mL Given 06/19/2025 9:00 AM CDT 10 mL Given 06/18/2025 10:48 PM CDT 10 mL sodium chloride flush injection 10 mL 10 mL, IV, SEE ADMIN INSTRUCTIONS, Starting on 06/12/25 at 0529, Until 06/20/25 at 0834, Routine, Post-Procedure (Invasive Cardiology) Given 06/13/2025 9:31 PM CDT 10 mL sodium chloride flush injection 10 mL 10 mL, IV, TWO TIMES DAILY, First dose on 06/12/25 at 2100, Until Discontinued, Routine Given 06/27/2025 8:4 5 AM CONTINUOUS MINER OPERATOR HELPER 10 mL Given 06/26/2025 8:13 PM CDT 10 mL Given 06/26/2025 8:41 AM CDT 10 mL sodium chloride flush injection 10 mL 10 mL, IV, TWO TIMES DAILY, First dose on 06/13/25 at 0900, Until Discontinued, Routine Given 06/19/2025 8:4 9 PM CDT 10 mL Given 06/19/2025 9:00 AM CDT 10 mL Given 06/18/2025 10:48 PM CDT 10 mL sodium chloride flush injection 10 mL 10 mL, IV, EVERY 12 HOURS (BlD), First dose on 06/14/25 at 0900, Until Discontinued, Routine, Post-Procedure (Invasive Cardiology) Given 06/19/2025 8:4 8 PM CDT 10 mL Given 06/19/2025 9:00 AM CDT 10 mL Given 06/18/2025 10:47 PM CDT 10 mL sodium chloride flush injection 10 mL 10 mL, IV, SEE ADMIN INSTRUCTIONS, Starting on Sat06/14/25 at 0245, Until Sat06/22/25 at 0842, Routine, Post-Procedure (Invasive Cardiology) Given 06/18/2025 10:48 PM CDT 10 mL Given 06/17/2025 8:11 PM CDT 10 mL sodium chloride flush injection 10 mL 10 mL, IV, EVERY 5 MINUTES PRN, 1 dose, Starting on [place] 06/24/25 at 2145, Until 06/27/25 at 1559, saline flush for imaging scan q 5 min prn, Routine sodium chloride flush injection 5 mL 5 mL, IV, TWO TIMES DAILY, First dose on Sat06/18/25 at 0930, Until Discontinued, Routine Given 06/27/2025 8:45 AM CONTINUOUS MINER OPERATOR HELPER 5 mL Given 06/26/2025 8:13 PM CDT 5 mL Given 06/26/2025 8:41 AM CDT 5 mL sodium PHOSPHATE 15 mmol in sodium chloride 0.9 % 105 mL IVPB 15 mmol, IV, ONE TIME ONLY, 1 dose, On 06/12/25 at 2300, Routine Rate Verify 06/13/2025 1:08 AM CDT 40 mL/hr Rate Verify 06/12/2025 11:54 PM CDT 40 mL/hr New Bag 06/12/2025 11:03 PM CDT 15 mmol 40 mL/hr spironolactone (ALDACTONE) tablet 12.5 mg 12.5 mg, Oral, DAILY, First dose on Sat06/25/25 at 1415, Until Discontinued, Routine Given 06/27/2025 8:41 AM CONTINUOUS MINER OPERATOR HELPER 12.5 mg Given 06/26/2025 8:42 AM CDT 12.5 mg Given 06/25/2025 3:40 PM CDT 12.5 mg ticagrelor (BRILINTA) tablet 90 mg 90 mg, Oral, TWO TIMES DAILY, First dose on 06/12/25 at 1730, Until Discontinued, Routine, Start 12 hours post intervention, Post-Procedure (Invasive Cardiology) Given 06/27/2025 8:44 AM CONTINUOUS MINER OPERATOR HELPER 90 mg Given 06/26/2025 8:13 PM CDT 90 mg Given 06/26/2025 8:42 AM CDT 90 mg tirofiban (AGGRASTAT) 12.5 mg/250 mL (50 mcg/mL) in sodium chloride 0.9% infusion 0.15 mcg/kg/min 107.4 kg (19.332 mL/hr, rounded to 19.33 mL/hr), IV, CONTINUOUS, Starting on 06/13/25 at 2000, Until Sat06/14/25 at 1400 New Bag 06/14/2025 5:47 AM CDT 0.15 mcg/kg/min 19.33 mL/hr Rate Verify 06/14/2025 4:19 AM CDT 0.15 mcg/kg/min 19.33 m L/hr Rate Verify 06/14/2025 2:35 AM CDT 0.15 mcg/kg/min 19.33 m L/hr vancomycin (VANCOCIN) 1,000 mg in sodium chloride 0.9 % 250 mL IVPB 1,000 mg, IV, EVERY 12 HOURS, First dose (after last modification) on [place] 06/13/25 at 1100, Until Discontinued, Routine, Antibiotic Indication: Suspected Sepsis, Unknown Source Rate Verify 06/13/2025 11:35 PM CDT 285 mL/hr Rate Verify 06/13/2025 10:38 PM CDT 285 mL/hr New Bag 06/13/2025 10:37 PM CDT 1,000 mg 285 mL/hr vancomycin (VANCOCIN) 1,000 mg in sodium chloride 0.9 % 250 mL IVPB 1,000 mg, IV, EVERY 12 HOURS, First dose (after last reorder) on 06/14/25 at 1200, Until Discontinued, Routine, Antibiotic Indication: Suspected Sepsis, Unknown Source New Bag 06/14/2025 11:09 PM CDT 1,000 mg 285 mL/ hr New Bag 06/14/2025 12:19 PM CDT 1,000 mg 285 mL/hr vancomycin in sodium chloride 0.9% (VANCOCIN) 1500 mg/515 mL IVPB 1,500 mg 1,500 mg, IV, EVERY 24 HOURS, First dose on 06/12/25 at 1600, Until Discontinued, Routine, Antibiotic Indication: Suspected Sepsis, Unknown Source New Bag 06/12/2025 4:16 PM CDT 1,500 mg 386.67 mL/hr vasopressin (VASOSTRICT) 20 Units in dextrose 5 % 100 mL infusion 0.05 Units/min (15 mL/hr), IV, CONTINUOUS, Starting on 06/12/25 at 1030, Until Tu06/15/25 at 1107 Rate Change 06/14/2025 12:37 AM CDT 0.02 Units/min 6 mL/hr Rate Change 06/14/2025 12:05 AM CDT 0.03 Units/min 9 mL/hr Rate Verify 06/13/2025 11:35 PM CDT 0.04 Units/min 12 mL/h r ziprasidone (GEODON) capsule 20 mg 20 mg, Oral, TWO TIMES DAILY WITH MEALS, First dose on 06/20/25 at 0830, Until Discontinued, Routine Feeding Started 06/25/2025 8:07 AM CDT 20 mg Given 06/24/2025 4:48 PM CDT 20 mg Given 06/24/2025 9:01 AM CDT 20 mg documented in this encounter Active and Recently Administered Medications Due to Daylight Saving Time, this section may contain times in both 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 Scheduled Medication Order 06/25/2025 06/26/2025 06/27/2025 apixaban (ELIQUIS) tablet 10 mg 10 mg, Oral, TWO TIMES DAILY, 14 doses, First dose on Nora 06/24/25 at 2000, Last dose on [place]ora 07/01/25 at 0900, Routine, Indication: TREATMENT for VTE/PE/DVT 0808 (Given - Provider: Tyler Beavers RN)2024 (Given - Provider: Mary Martin RN) 0842 (Given - Provider: Tyler Beavers RN)2012 (Given - Provider: Leena Valdez LPN) 0843 (Given - Provider: Chaz Tony RN) apixaban (ELIQUIS) tablet 5 mg 5 mg, Oral, TWO TIMES DAILY, First dose on Nora 07/01/25 at 2100, Until Discontinued, Routine, Indication: TREATMENT for VTE/PE/DVT aspirin (SNOW CHEWABLE) chewable tablet 81 mg 81 mg, Oral, DAILY, First dose on 06/12/25 at 0900, Until Discontinued, Routine, Post-Procedure (Invasive Cardiology) 0807 (Given - Provider: Tyler Beavers RN) 0842 (Given - Provider: Tyler Beavers RN) 0840 (Given - Provider: Chaz Tony RN) dextrose 5 % - sodium chloride 0.9 % infusion IV, at 40 mL/hr, SEE ADMIN INSTRUCTIONS, Starting on Tu06/15/25 at 1025, Until Sat06/27/25 at 1559, Routine dextrose 5 % in water 250 mL flush bag 25 mL 25 mL, IV, SEE ADMIN INSTRUCTIONS, Starting on Sat06/14/25 at 0245, Until 06/27/25 at 1559, Routine, Post-Procedure (Invasive Cardiology) furosemide (LASIX) injection 40 mg (CANCELED) 40 mg, IV, TWO TIMES DAILY, 7 HOURS APART, First dose on 06/20/25 at 0830, Until Discontinued, Routine 0809 (Given - Provider: Tyler Beavers RN) furosemide (LASIX) tablet 40 mg 40 mg, Oral, DAILY, First dose on 06/26/25 at 0900, Until Discontinued, Routine 0842 (Given - Provider: Tyler Beavers RN) 0842 (Given - Provider: Chaz Tony RN) gabapentin (NEURONTIN) 300 mg/6 mL (6 mL) oral solution 400 mg (CANCELED) 400 mg, Oral, EVERY 8 HOURS, First dose on Sat06/22/25 at 0845, Until Discontinued, Routine 0541 (Given - Provider: Gemma Lion RN)1215 (Given - Provider: Tyler Beavers RN)202 (Given - Provider: Mary Martin RN) 0405 (Given - Provider: Mary Martin RN) insulin lispro (HumaLOG,ADMELOG) injection 0-18 Units 0-18 Units, subCUT, EVERY 4 HOURS, First dose on Sat06/15/25 at 1200, Until Discontinued, Routine 0000 (Not Given - Provider: Gemma Lion RN - Reason: Lab results / vitals)0400 (Not Given - Provider: Gemma Lion RN - Reason: Lab results / vitals)0800 (Not Given - Provider: Tyler Beavers RN - Reason: Lab results / vitals)1200 (Not Given - Provider: Tyler Beavers RN - Reason: Lab results / vitals)1600 (Not Given - Provider: Tyler Beavers RN - Reason: Lab results / vitals)202 (Given - Provider: Mary Martin RN - Comment: BG 188) 0000 (Not Given - Provider: Mary Martin RN - Reason: Lab results / vitals - Comment: BG 123)0400 (Not Given - Provider: Mary Martin RN - Reason: Lab results / vitals - Comment: BG 148)0800 (Not Given - Provider: Tyler Beavers RN - Reason: Lab results / vitals)1200 (Not Given - Provider: Tyler Beavers RN - Reason: Lab results / vitals)1741 (Given - Provider: Leslie Hernandez RN)2019 (Given - Provider: Leena Valdez LPN) 0000 (Not Given - Provider: Leena Valdez LPN - Reason: Lab results / vitals)0400 (Not Given - Provider: Leena Valdez LPN - Reason: Lab results / vitals - Comment: bg 140)0800 (Not Given - Provider: Chaz Tony RN - Reason: Lab results / vitals)1200 (Due) iopamidoL (ISOVUE-300) 61% injection (drawn from multi-use bulk pack) 100 mL (COMPLETED) 100 mL, IV, INTRA-PROCEDURE ONCE, 1 dose, Starting on Sat06/25/25 at 2155, Until Sat06/25/25 at 2155, Routine 2155 (Contrast Given - Provider: Levi Fernandez, RT) iopamidoL (ISOVUE-300) 61% injection (drawn from multi-use bulk pack) 100 mL (COMPLETED) 100 mL, IV, INTRA-PROCEDURE ONCE, 1 dose, Starting on Sat06/25/25 at 2312, Until Sat06/25/25 at 2312, Routine 2312 (Contrast Given - Provider: Levi Fernandez, RT) iopamidoL (ISOVUE-300) 61% injection (drawn from multi-use bulk pack) 85 mL 85 mL, IV, INTRA-PROCEDURE ONCE, 1 dose, Starting on [place] 06/24/25 at 2145, Until Sat06/27/25 at 1559, Routine losartan (COZAAR) tablet 12.5 mg 12.5 mg, Oral, DAILY, First dose on Sat06/22/25 at 0930, Until Discontinued, Routine 0807 (Feeding Started - Provider: Tyler Beavers RN) 0841 (Given - Provider: Tyler Beavers RN) 0846 (Given - Provider: Chaz Tony RN) metoprolol tartrate (LOPRESSOR) tablet 12.5 mg (CANCELED) 12.5 mg, Oral, TWO TIMES DAILY, First dose on Sat06/22/25 at 2100, Until Discontinued, Routine 0807 (Given - Provider: Tyler Beavers RN)2024 (Given - Provider: Mary Martin RN) 0841 (Given - Provider: Tyler Beavers, KALEB) naloxone (NARCAN) 0.4 mg/mL injection 0.1-0.4 mg 0.1-0.4 mg, IV, SEE ADMIN INSTRUCTIONS, Starting on 06/12/25 at 0529, Until 06/27/25 at 1559, Routine, Post-Procedure (Invasive Cardiology) naloxone (NARCAN) 0.4 mg/mL injection 0.1-0.4 mg 0.1-0.4 mg, IV, SEE ADMIN INSTRUCTIONS, Starting on 06/12/25 at 0449, Until Sat06/27/25 at 1559, Routine perflutren lipid microspheres (DEFINITY) 1.3 mL in sodium chloride 0.9% 10 mL injection (COMPLETED) 0-10 mL, IV, INTRA-PROCEDURE ONCE, 1 dose, Starting on 06/27/25 at 1043, Until 06/27/25 at 1030, Routine 1030 (Contrast Given - Provider: Ramiro Gtz, RT) polyethylene glycol (MIRALAX) packet 17 Gram 17 Gram, Oral, TWO TIMES DAILY, First dose on Sat06/14/25 at 0900, Until Discontinued, Routine 09 (Refused - Provider: Tyler Beavers RN)2099 (Not Given - Provider: Mary Martin RN - Reason: Patient condition) 09 (Refused - Provider: Tyler Beavers, KALEB)2012 (Given - Provider: Leena Valdez LPN) 09 (Refused - Provider: Chaz Tony RN) QUEtiapine (SEROquel) tablet 50 mg (CANCELED) 50 mg, Oral, EVERY 8 HOURS, First dose on Sat06/21/25 at 0815, Until Discontinued, Routine 05 (Given - Provider: Gemma Lion RN) QUEtiapine (SEROquel) tablet 50 mg (CANCELED) 50 mg, Oral, TWO TIMES DAILY, First dose (after last modification) on Sat06/25/25 at 2100, Until Discontinued, Routine 2024 (Given - Provider: Mary Martin RN) 08 (Given - Provider: Tyler Beavers RN) rosuvastatin (CRESTOR) tablet 20 mg 20 mg, Oral, DAILY AT BEDTIME, First dose on Sat06/12/25 at 2100, Until Discontinued, Routine, Post-Procedure (Invasive Cardiology) 2024 (Given - Provider: Mary Martin RN) 2012 (Given - Provider: Leena Valdez LPN) sennosides-docusate sodium (SENNA-S) 8.6-50 mg per tablet 1 Tablet 1 Tablet, Oral, TWO TIMES DAILY, First dose on Sat06/21/25 at 1030, Until Discontinued, Routine 0807 (Given - Provider: Tyler Beavers RN)2024 (Given - Provider: Mary Martin RN) 08 (Given - Provider: Tyler Beavers RN)2012 (Given - Provider: Leena Valdez LPN) 0900 (Refused - Provider: Chaz Tony RN) sodium chloride 0.9 % bolus solution 250 mL 250 mL, IV, ONE TIME ONLY, 1 dose, On 06/12/25 at 0600, at 999 mL/hr, Administer over 15 Minutes, Stat sodium chloride flush injection 10 mL 10 mL, IV, TWO TIMES DAILY, First dose on 06/12/25 at 2100, Until Discontinued, Routine 0000 (Given - Provider: Gemma Lion RN)0809 (Given - Provider: Tyler Beavers RN)2026 (Given - Provider: Mary Martin RN) 08 (Given - Provider: Tyler Beavers, KALEB)2012 (Given - Provider: Leena Valdez LPN) 0845 (Given - Provider: Chaz Tony RN) sodium chloride flush injection 5 mL 5 mL, IV, TWO TIMES DAILY, First dose on Sat06/18/25 at 0930, Until Discontinued, Routine 0001 (Given - Provider: Gemma Lion RN)0810 (Given - Provider: Tyler Beavers RN)2026 (Given - Provider: Mary Martin, RN) 0841 (Given - Provider: Tyler Beavers, KALEB)2012 (Given - Provider: Leena Valdez LPN) 0845 (Given - Provider: Chaz Tony RN) spironolactone (ALDACTONE) tablet 12.5 mg 12.5 mg, Oral, DAILY, First dose on Sat06/25/25 at 1415, Until Discontinued, Routine 1540 (Given - Provider: Tyler Beavers RN) 0842 (Given - Provider: Tyler Beavers RN) 0841 (Given - Provider: Chaz Tony RN) ticagrelor (BRILINTA) tablet 90 mg 90 mg, Oral, TWO TIMES DAILY, First dose on 06/12/25 at 1730, Until Discontinued, Routine, Start 12 hours post intervention, Post-Procedure (Invasive Cardiology) 0808 (Given - Provider: Tyler Beavers RN)2024 (Given - Provider: Mary Martin RN) 0842 (Given - Provider: Tyler Beavers, KALEB)2012 (Given - Provider: Leena Valdez LPN) 0844 (Given - Provider: Chaz Tony RN) ziprasidone (GEODON) capsule 20 mg (CANCELED) 20 mg, Oral, TWO TIMES DAILY WITH MEALS, First dose on Sat06/20/25 at 0830, Until Discontinued, Routine 0807 (Feeding Started - Provider: Tyler Beavers RN) Continuous Medication Order 06/25/2025 06/26/2025 06/27/2025 dexmedeTOMIDine in dextrose 5% (PRECEDEX) 400 mcg/100 mL (4 mcg/mL) infusion (CANCELED) 0-0.8 mcg/kg/hr 105.3 kg (0-21.06 mL/hr), IV, TITRATE, Starting on Sat06/22/25 at 0845, Until Sat06/25/25 at 1509, Should this infusion be titrated? Yes, Initial infusion dose? 0.2 mcg/kg/hr, Titration Dose Increment? 0.2 mcg/kg/hr, Titration Interval? 30 minutes, RASS Goal? -2 to 0 0136 (Rate Change - Provider: Gemma Lion RN)0223 (Rate Verify - Provider: Gemma Lion RN)1509 (Stopped - Provider: Tyler Beavres, KALEB - Comment: [Order ends at this time. Document the following action when infusion is complete: Stopped]) PRN Medication Order 06/25/2025 06/26/2025 06/27/2025 albuterol (PROVENTIL,VENTOLIN) 2.5 mg /3 mL (0.083 %) inhalation solution 2.5 mg 2.5 mg, Inhalation, EVERY 4 HOURS PRN RESPIRATORY, Starting on Sat06/18/25 at 0038, Until Sat06/27/25 at 1559, Shortness of Breath, Wheezing, Routine atropine injection 0.5 mg 0.5 mg, IV, EVERY 5 MINUTES PRN, 3 doses, Starting on Sat06/14/25 at 0245, Until Sat06/27/25 at 1559, Heart Rate, Bradycardia, Routine, Post-Procedure (Invasive Cardiology) clonazePAM (KlonoPIN) tablet 0.25 mg 0.25 mg, Oral, EVERY 6 HOURS PRN, Starting on Sat06/22/25 at 1130, Until Sat06/27/25 at 1559, Anxiety, Routine 0752 (Given - Provid er: Chaz Vice, RN) nitroglycerin (NITROSTAT) tablet 0.4 mg 0.4 mg, Sublingual, EVERY 5 MINUTES PRN, 3 doses, Starting on 06/14/25 at 0245, Until 06/27/25 at 1559, Chest Pain, Not to exceed 3 doses, notify physician if chest pain not relieved, hold if systolic BP less than or equal to 90 mmHg, Routine, Post-Procedure (Invasive Cardiology) ondansetron (ZOFRAN) 4 mg/2 mL injection 4 mg 4 mg, IV, EVERY 6 HOURS PRN, Starting on 06/13/25 at 0045, Until 06/27/25 at 1559, Nausea/Emesis, Routine, Post-op - Floor sodium chloride flush injection 10 mL 10 mL, IV, EVERY 5 MINUTES PRN, 1 dose, Starting on Nora 06/24/25 at 2145, Until 06/27/25 at 1559, saline flush for imaging scan q 5 min prn, Routine documented in this encounter
[2025-07-03 18:35] VITALS: BP 125/75; PULSE 73; RESP 18; TEMP 36.6; O2SAT 97; BMI 27.3
--- OUTSIDE RECORDS SUMMARY | 2025-07-03 18:38 | XMS_ITS | Encounter Summary ---
Author Organization [facility] Address [address] [place] [address] Care Team Providers Care Material Control Analyst Name Role Phone Unavailable Primary Care Provider Unavailabl e Encounter Details Date Type Department Care Team (Late st Contact Info) Description 06/29/2025 External Device Data [facility] ABSTRACTION Provider, Abstract NO ADDRESS ON FILE Social History Tobacco Use Types Packs/Day Years [...] worry about transportation for future doctor visits, hop picker medication, etc.? No 2024 Housing Stability [...] on file documented as of this encounter Plan of Treatment Upcoming Encounters Date Type Department Care Team (Late st Contact Info) Description 10/21/2025 2:40 PM CAREER TRANSITION SPECIALIST Office Visit [facility] [address] [facility] [address] [place] [address] Tri Price MD [address] [place] [id number] Madalyn Ernandez PA-C [address] [facility] [address] [place] [address] documented as of this encounter Visit Diagnoses Not on filedocumented in this encounter
--- OUTSIDE RECORDS SUMMARY | 2025-07-03 18:38 | XMS_ITS | Encounter Summary ---
Author Organization [facility] Address [address] [place] [address] Care Team Providers Care Family Specialist Name Role Phone Unavailable Primary Care Provider Unavailabl e Encounter Details Date Type Department Care Team (Late st Contact Info) Description 06/30/2025 External Device Data [facility] ABSTRACTION Provider, Abstract [...] worry about transportation for future doctor visits, leaf size picker medication, etc.? No 2024 Housing Stability [...] st Contact Info) Description 10/21/2025 2:40 PM FOURDRINIER WIRE WEAVER Office Visit [facility] [address] [facility] [address] [place] [address] Tri Price MD [address] [place] [id number] Madalyn Ernandez PA-C [address] [facility] [address] [place] [address] documented as of this encounter Visit Diagnoses Not on filedocumented in this encounter
--- OUTSIDE RECORDS SUMMARY | 2025-07-03 18:41 | XMS_ITS | Clinical Summary ---
Author Organization [facility] Address [address] [address] Phone Care Team Providers Care Payroll Coordinator Name Role Phone Unavailable Primary Care Provider Unavailabl e Allergies No known active allergies Medications apixaban (ELIQUIS) 5 mg tablet Take 2 Tablets (10 mg) by mouth 2 times daily for 4 days, THEN take 1 Tablet (5 mg) by mouth 2 times daily. Continue taking until advised by PCP/cardiologi st to stop 76 Tablet 1 06/27/2025 1:30 PM SANDBLAST OPERATOR 5 Active aspirin (SNOW CHEWABLE) 81 mg Tablet, Chewable Take 1 Tablet (81 mg) by mouth daily for 17 days. Take until 07/15/2025 only 17 Tablet 06/27/2025 1:30 PM SANDBLAST OPERATOR 5 07/15/20 25 Active furosemide (LASIX) 40 mg tablet Take 1 Tablet (40 mg) by mouth daily. 30 Tablet 1 06/27/2025 1:30 PM SANDBLAST OPERATOR 5 Active losartan (COZAAR) 25 mg tablet Take ONE-HALF Tablet (12.5 mg) by mouth daily. 30 Tablet 06/27/2025 1:30 PM SANDBLAST OPERATOR 5 Active nitroglycerin (NITROSTAT) 0.4 mg Tablet, Sublingual Place 1 Tablet (0.4 mg) under tongue every 5 minutes as needed for Chest Pain (Not to exceed 3 doses, notify physician if chest pain not relieved, hold if systolic BP less than or equal to 90 mmHg). 25 Tablet 06/27/2025 1:30 PM SANDBLAST OPERATOR Active rosuvastatin (CRESTOR) 20 mg tablet Take 1 Tablet (20 mg) by mouth daily at bedtime. 30 Tablet 1 06/27/2025 1:30 PM SANDBLAST OPERATOR Active spironolactone (ALDACTONE) 25 mg tablet Take ONE-HALF Tablet (12.5 mg) by mouth daily. 30 Tablet 06/27/2025 1:30 PM SANDBLAST OPERATOR Active ticagrelor (BRILINTA) 90 mg Tablet Take 1 Tablet (90 mg) by mouth 2 times daily. 60 Tablet 1 06/27/2025 1:30 PM SANDBLAST OPERATOR Active apixaban (ELIQUIS) 5 mg tablet Take 2 Tablets (10 mg) by mouth 2 times daily for 4 days. 16 Tablet 5 07/01/20 25 Active Problems Problem Noted Date Diagnosed Date Leukocytosis 06/27/2025 Thrombocytosis 06/27/2025 Ischemic dilated cardiomyopathy 06/24/2025 Atrial fibrillation 06/22/2025 S/P coronary artery stent placement 06/21/2025 Ventricular tachycardia 06/21/2025 AV block 06/21/2025 Acute diastolic heart failure 06/21/2025 Diabetes mellitus 06/16/2025 Laboratory test 06/13/2025 Patient receiving extracorpo real membrane oxygenation (ECMO) 06/13/2025 Cardiogenic shock 06/12/2025 Complete heart block 06/12/2025 ST elevation myocardial infa rction involving right coronary artery 06/12/2025 Cardiac arrest with ventricular fibrillation CHB (complete heart block) 06/12/2025 ST elevation myocardial infarction (STEMI) 06/12 Acute pulmonary edema 06/12/2025 Acute hypoxemic respiratory failure 06/12/2025 Lactic acidosis 06/12/2025 Encounters Date Type Department Care Team Description 06/30/2025 External Device Data STL ABSTRACTION Provider, Abstract 06/29/2025 External Device Data STL ABSTRACTION Provider, Abstract 06/22/2025 Patient Outreach [facility] [address] [place] [address] Price, Desi A Referral ([id number]); Medication Assistance; Financial Assistance Program 06/17/2025 3:31 PM CDT - 06/17/2025 5:01 PM CDT Surgery [facility] Cardiovascular Operating Room [facility] [place] [address] Kim Penny MD EXTRACORPOREAL CIRCULATION MEMBRANE OXYGENATION REMOVAL 06/17/2025 3:02 PM CDT Anesthesia Event [facility] Cardiovascular Operating Room [address] [address] Brian Rg MD Schmitt, Adriel, LICENSED VETERINARY TECHNICIAN 06/16/2025 External Device Data STL ABSTRACTION Provider, Abstract 06/16/2025 External Device Data STL ABSTRACTION Provider, Abstract 06/15/2025 External Device Data STL ABSTRACTION Provider, Abstract 06/13/2025 8:55 AM CDT - 06/13/2025 9:55 AM CDT Surgery [facility] Cardiac Qa Test Lead [address] [place] [phone] Prince Farr MD Left heart cath 06/12/2025 5:00 AM CDT Ancillary Procedure [facility] Operating Room [address] [place] [address] 06/12/2025 4:15 AM CDT Anesthesia Event [facility] Cardiovascular Operating Room [address] [address] Chaz Hill MD [facility] [place] Ayala, LICENSED VETERINARY TECHNICIAN 06/12/2025 4:15 AM CDT - 06/12/2025 8:58 AM CDT Surgery [facility] Cardiovascular Operating Room [address] [address] Kim Penny MD CASE CANCELLED 06/12/2025 2:00 AM CDT - 06/12/2025 3:00 AM CDT Surgery [facility] Cardiac Qa Test Lead [address] [place] [id number] Prince Farr MD Left heart cath 06/12/2025 1:52 AM CDT - 06/27/2025 1:59 PM SANDBLAST OPERATOR Hospital Encounter [facility] 4A Cardiac [address] [place] [id number] Doreen Ambrocio MD Sethi, Prince, MD Pendurthi, MD Cory Styles, MD Alfonso Estevez, MD John Mai Mariam, MD Sohail, MD Trisha Cano, MD Issac ST elevation myocardial infarction involving right coronary artery (CMS/HCC) Discharge Disposition: Left Against Medical Advice 06/12/2025 - 06/12/2025 11:59 PM CDT Hospital Encounter [facility] [address] [place] [phone] Ambulance, L[facility]wo [facility] Discharge Disposition: [facility] 06/11/2025 11:18 PM CDT - 06/12/2025 1:05 AM CDT Emergency [facility] Emergency Medicine [address] [place] [phone] Luis Ramos MD Acute myocardial infarction involving other coronary artery of inferior wall, unspecified NV type (CMS/HCC) (Primary Dx) Discharge Disposition: [facility] 06/11/2025 Travel from Last 3 Months Social History Tobacco Use Types Packs/Day Years Used Date Smoking Tobacco: Every Day Cigarettes Tobacco Cessation:Ready to Q uit: Not Asked; Counseling Given: Not Answered Food Insecurity Answer Date Recorded Do you find you are eating l ess than you should because you can t pay for food? No 06/21/2025 Transportation Needs Answer Date Record ed Have you gone without health care because you didn t have a way to get there? Or worry about transportation for future doctor visits, warp picker medication, etc.? No 2024 Housing Stability [...] on file Sexual Orientation Not on file Last Filed Vital Signs Vital Sign Reading Time Taken Comments Blood Pressure 110/61 06/27/2025 11:45 AM SANDBLAST OPERATOR Pulse 75 06/27/2025 11:45 AM SANDBLAST OPERATOR Temperature 36.8 C (98.2 F) 06/27/2025 11:45 AM SANDBLAST OPERATOR Respiratory Rate 24 06/27/2025 11:45 AM SANDBLAST OPERATOR Oxygen Saturation 97% 06/27/2025 11:45 AM SANDBLAST OPERATOR Inhaled Oxygen Concentration - - Weight 86.9 kg (191 lb 9.3 oz) 06/27/2025 3:50 A M SANDBLAST OPERATOR Height 172.7 cm (5' 8 ) 06/26/2025 3:21 PM CDT Body Mass Index 29.13 06/26/2025 3:21 PM CDT Plan of Treatment Upcoming Encounters Date Type Department Care Team (Late st Contact Info) Description 10/21/2025 2:40 PM SANDBLAST OPERATOR Office Visit [facility] [address] [facility] [address] [place] [address] Tri Price MD [address] [facility] [address] [place] [address] Madalyn Ernandez PA-C [address] [facility] [address] [place] [address] Health Maintenance Due Date Last Done Comments DIABETES ANNUAL FOOT EXAM 1979 DIABETES ANNUAL RETINAL EXAM 1979 DIABETES MICROALBUMIN ANNUAL SCREEN 1979 DTAP/TDAP/TD VACCINES (1 - Tdap) 02/19/1980 Preventative Visit-Managed Medicaid 02/19/1980 COLORECTAL SCREENING 2006 Colorectal Cancer Screening 2006 FIT-DNA Q 3 years 2006 FIT/FOBT Q 1 year 2006 Flex Sig/CT Colonography Q 5 years 2006 RSV VACCINE (60+ or ) (1 - Risk 50-74 years 1-dose series) 2011 ZOSTER VACCINE (1 of 2) 2011 INFLUENZA VACCINE (#1) 2025 DIABETES HBA1C Q 6 MONTHS 12/13/2025 06/14/2025 LDL CHOLESTEROL ANNUAL 06/14/2026 06/14/2025 Medical Devices Implanted Type Area Alternative Financing Specialist Device Identifier Shelf Expiration Date Model / Serial / Lot Clip Ligating Horizon Med Ti [id number] - Csc - [id number] Implanted:Qty: 1 on 06/17/2025 by Kim Penny MD at [facility] Clip N/A: Chest TELEFLEX- WECK CLOSURE SYS [id number] 12/25/2029 [id number] / / [id number] Clip Ligating Horizon Red 053527 - Csc - [id number] Implanted:Qty: 1 on 06/17/2025 by Kim Penny MD at [facility] Clip N/A: Chest TELE[employer]LEX INC [id number] 02/21/2030 [id number] / / [id number] [place] Ptfe Thick 1.6mmx2.5x10.2 cm [id number] - [id number] Implanted:Qty: 1 on 06/17/2025 by Kim Penny MD at [facility] Graft N/A: Chest BARD SADIE VASC [id number] 08/22/2028 [id number] 8 / / [id number] Agent Hemostat Surgicel 2x3in 1952s - [id number] Implanted:Qty: 1 on 06/17/2025 by Kim Penny MD at [facility] Hemostatic N/A: Chest J&J- [employer] [id number] 12/23/2029 1953S / / [id number] Agent Hemostat Surgicel 2x3in 195s - [id number] Implanted:Qty: 1 on 06/17/2025 by Kim Penny MD at [facility] Hemostatic N/A: Chest J&J- [employer] [id number] 12/23/2029 1953S / / [id number] Agent Hemostat Surgicel 2x3in 1952s - [id number] Implanted:Qty: 1 on 06/17/2025 by Kim Penny MD at [facility] Hemostatic N/A: Chest J&J- [employer] [id number] 12/23/20293S / / [id number] Agent Hemostat Surgicel 2x3in 1952s - [id number] Implanted:Qty: 1 on 06/17/2025 by Kim Penny MD at [facility] Hemostatic N/A: Chest J&J- [employer] [id number] 12/23/2029 1953S / / [id number] Agent Hemostat Surgicel 2x3in 1952s - [id number] Implanted:Qty: 1 on 06/17/2025 by Kim Penny MD at [facility] Hemostatic N/A: Chest J&J- [employer] [id number] 12/23/20293S / / [id number] Agent Hemostat Surgicel 2x3in 1952s - [id number] Implanted:Qty: 1 on 06/17/2025 by Kim Penny MD at [facility] Hemostatic N/A: Chest J&J- [employer] [id number] 12/23/20291952S / / [id number] Stent Jai [place] Jluis 3.0x15mm Rx [id number] - [id number] Implanted:Qty: 1 on 06/12/2025 by Prince Farr MD at [facility] Stent Right: Coronary [employer] [id number] 03/03/2028 [id number] / / [id number] Stent Jai [place] Jluis 3.0x18mm Rx [id number] - [id number] Implanted:Qty: 1 on 06/12/2025 by Prince Farr MD at [facility] Stent Right: Coronary [employer] [id number] 02/05/2028 [id number] / / [id number] Procedures Procedure Name Priority Date/Time Associated Diagnosis Comments TELEMETRY REPORT 06/28/2025 3:38 AM SANDBLAST OPERATOR ECHO LIMITED W CONTRAST Stat 06/27/2025 10:50 AM SANDBLAST OPERATOR POC GLUCOSE Routine 06/27/2025 7:09 AM SANDBLAST OPERATOR POC GLUCOSE Routine 06/27/2025 4:58 AM SANDBLAST OPERATOR EKG 12-LEAD Routine 06/27/2025 4:39 AM SANDBLAST OPERATOR CBC WITH DIFFERENTIAL Routine 06/27/2025 1:51 AM CDT BASIC METABOLIC PANEL Routine 06/27/2025 1:51 AM CDT POC GLUCOSE Routine 06/27/2025 12:49 AM CDT POC GLUCOSE Routine 06/26/2025 8:16 PM CDT POC GLUCOSE Routine 06/26/2025 4:46 PM CDT POC GLUCOSE Routine 06/26/2025 11:46 AM CDT PROCALCITONIN Routine 06/26/2025 10:36 AM CDT POC GLUCOSE Routine 06/26/2025 7:29 AM CDT BASIC METABOLIC PANEL Routine 06/26/2025 5:37 AM CDT CBC WITH DIFFERENTIAL Routine 06/26/2025 5:37 AM CDT EKG 12-LEAD [...] POC GLUCOSE Routine 06/24/2025 4:47 PM CDT UNFRACTIONATED HEPARIN ACTIVITY Timed Study [...] ARM BILATERAL Routine 06/24/2025 11:03 AM CDT PRESIDENT OF THE [place] EVALUATION Routine 06/24/2025 8:39 AM CDT POC GLUCOSE Routine 06/24/2025 7:36 AM CDT EKG 12-LEAD Routine 06/24/2025 4:46 AM CDT POC GLUCOSE Routine 06/24/2025 4:13 AM CDT PERIPHERAL BLOOD SMEAR PATHOLOGY INTERP Routine 06/24/2025 3:38 AM CDT BASIC METABOLIC PANEL Routine 06/24/2025 3:38 AM CDT CBC WITH DIFFERENTIAL Routine 06/24/2025 3:38 AM CDT UNFRACTIONATED HEPARIN ACTIVITY Timed Study 06/24/2025 3:38 AM CDT POC GLUCOSE Routine [...] ACTIVITY Timed Study 06/23/2025 3:47 AM CDT PHOSPHORUS Routine 06/23/2025 2:49 AM CDT MAGNESIUM LEVEL Routine 06/23/2025 2:49 AM CDT COMPREHENSIVE METABOLIC PANEL Routine 06/23/2025 2:49 AM CDT CBC WITH DIFFERENTIAL Routine 06/23/2025 2:49 AM CDT POC GLUCOSE [...] POC GLUCOSE Routine 06/22/2025 4:32 AM CDT PHOSPHORUS Routine 06/22/2025 4:30 AM CDT MAGNESIUM LEVEL Routine 06/22/2025 4:30 AM CDT COMPREHENSIVE METABOLIC PANEL Routine 06/22/2025 4:30 AM CDT CBC WITH DIFFERENTIAL Routine 06/22/2025 4:30 AM CDT XR ABDOMEN [...] AP 1 VW Routine 5:23 AM CDT TSH Routine 06/21/2025 3:02 AM CDT CBC WITH DIFFERENTIAL Routine 06/21/2025 3:02 AM CDT COMPREHENSIVE METABOLIC PANEL Routine 06/21/2025 3:02 AM CDT MAGNESIUM LEVEL Routine 06/21/2025 3:02 AM CDT PHOSPHORUS Routine 06/21/2025 3:02 AM CDT POC GLUCOSE Routine 06/20/2025 6:57 PM CDT POC GLUCOSE Routine 06/20/2025 3:49 PM CDT POC GLUCOSE Routine 06/20/2025 12:25 PM CDT XR CHEST PA OR AP 1 VW Routine 8:36 AM CDT POC GLUCOSE Routine 06/20/2025 7:28 AM CDT POC GLUCOSE Routine 06/20/2025 3:22 AM CDT CBC WITH DIFFERENTIAL Routine 06/20/2025 3:18 AM CDT COMPREHENSIVE METABOLIC PANEL Routine 06/20/2025 3:18 AM CDT MAGNESIUM LEVEL Routine 06/20/2025 3:18 AM CDT PHOSPHORUS Routine 06/20/2025 3:18 AM CDT PTT Routine 06/20/2025 3:18 AM CDT POC GLUCOSE [...] WITH DIFFERENTIAL Routine 06/19/2025 4:08 AM CDT COMPREHENSIVE METABOLIC PANEL Routine 06/19/2025 4:08 AM CDT MAGNESIUM LEVEL Routine 06/19/2025 4:08 AM CDT PHOSPHORUS Routine 06/19/2025 4:08 AM CDT PTT Routine 06/19/2025 1:02 AM CDT POC GLUCOSE Routine 06/18/2025 11:42 PM CDT POC GLUCOSE Routine 06/18/2025 8:00 PM CDT POTASSIUM LEVEL Routine 06/18/2025 5:02 PM CDT PTT Routine 06/18/2025 5:02 PM CDT POC GLUCOSE [...] WITH DIFFERENTIAL Routine 06/18/2025 3:36 AM CDT COMPREHENSIVE METABOLIC PANEL Routine 06/18/2025 3:36 AM CDT MAGNESIUM LEVEL Routine 06/18/2025 3:36 AM CDT PHOSPHORUS Routine 06/18/2025 3:36 AM CDT HAPTOGLOBIN Routine 06/18/2025 3:36 AM CDT POC GLUCOSE [...] AP 1 VW Routine 4:46 AM CDT PTT Timed Study 06/17/2025 3:14 AM CDT HAPTOGLOBIN Routine 06/17/2025 3:14 AM CDT PHOSPHORUS Routine 06/17/2025 3:14 AM CDT MAGNESIUM LEVEL Routine 06/17/2025 3:14 AM CDT COMPREHENSIVE METABOLIC PANEL Routine 06/17/2025 3:14 AM CDT CBC WITH DIFFERENTIAL Routine 06/17/2025 3:14 AM CDT POC GLUCOSE [...] ARTERIAL Routine 06/16/2025 3: 10 AM CDT TROPONIN Routine 06/16/2025 3:09 AM CDT HAPTOGLOBIN Routine 06/16/2025 3:09 AM CDT PHOSPHORUS Routine 06/16/2025 3:09 AM CDT MAGNESIUM LEVEL Routine 06/16/2025 3:09 AM CDT COMPREHENSIVE METABOLIC PANEL Routine 06/16/2025 3:09 AM CDT CBC WITH DIFFERENTIAL Routine 06/16/2025 3:09 AM CDT PTT Routine 06/16/2025 12:35 AM CDT POC LACTIC ACID Routine 06/16/2025 12:07 AM CDT BLOOD GAS ARTERIAL Routine 06/16/2025 12:07 AM CDT BASIC METABOLIC PANEL Routine 06/15/2025 7:48 PM CDT TROPONIN Routine 06/15/2025 7:48 PM CDT POC LACTIC [...] POC GLUCOSE Routine 06/15/2025 4:05 AM CDT PTT Routine 06/15/2025 4:03 AM CDT TROPONIN Timed Study 06/15/2025 4:03 AM CDT LACTATE DEHYDROGENASE Routine 06/15/2025 4:03 AM CDT HAPTOGLOBIN Routine 06/15/2025 4:03 AM CDT PHOSPHORUS Routine 06/15/2025 4:03 AM CDT MAGNESIUM LEVEL Routine 06/15/2025 4:03 AM CDT COMPREHENSIVE METABOLIC PANEL Routine 06/15/2025 4:03 AM CDT CBC WITH DIFFERENTIAL Routine 06/15/2025 4:03 AM CDT XR CHEST [...] POC GLUCOSE Routine 06/14/2025 11:30 AM CDT LIPID PANEL Routine 06/14/2025 11:23 AM CDT TROPONIN Routine 06/14/2025 11:23 AM CDT TELEMETRY REPORT 06/14/2025 10:29 AM CDT VANCOMYCIN LEVEL TROUGH Timed Study [...] EKG 12-LEAD Stat 06/14/2025 3:36 AM CDT HEMOGLOBIN A1C Routine 06/14/2025 3:08 AM CDT LACTATE DEHYDROGENASE Routine 06/14/2025 3:08 AM CDT HAPTOGLOBIN Routine 06/14/2025 3:08 AM CDT PHOSPHORUS Routine 06/14/2025 3:08 AM CDT MAGNESIUM LEVEL Routine 06/14/2025 3:08 AM CDT COMPREHENSIVE METABOLIC PANEL Routine 06/14/2025 3:08 AM CDT CBC WITH DIFFERENTIAL Routine 06/14/2025 3:08 AM CDT POC GLUCOSE Routine 06/14/2025 3:07 AM CDT POC LACTIC ACID Routine 06/14/2025 3:05 AM CDT BLOOD GAS ARTERIAL Routine 06/14/2025 3: 05 AM CDT POC GLUCOSE Routine 06/14/2025 2:11 AM CDT POC GLUCOSE Routine 06/14/2025 1:25 AM CDT POC GLUCOSE Routine 06/14/2025 12:04 AM CDT TROPONIN Routine 06/13/2025 11:34 PM CDT CBC WITH DIFFERENTIAL Timed Study 06/13/2025 11:34 PM CDT POC LACTIC ACID [...] AM CDT BLOOD GAS ARTERIAL Routine 06/13/2025 7:17 AM CDT POC GLUCOSE Routine 06/13/2025 7:14 [...] ACTIVITY Timed Study 06/13/2025 4:04 AM CDT LACTATE DEHYDROGENASE Routine 06/13/2025 4:04 AM CDT HAPTOGLOBIN Routine 06/13/2025 4:04 AM CDT PHOSPHORUS Routine 06/13/2025 4:04 AM CDT MAGNESIUM LEVEL Routine 06/13/2025 4:04 AM CDT COMPREHENSIVE METABOLIC PANEL Routine 06/13/2025 4:04 AM CDT CBC WITH DIFFERENTIAL Routine 06/13/2025 4:04 AM CDT POC LACTIC [...] POC GLUCOSE Routine 06/12/2025 5:41 PM CDT TROPONIN Routine 06/12/2025 5:36 PM CDT HAPTOGLOBIN Routine 06/12/2025 5:36 PM CDT PHOSPHORUS Timed Study 06/12/2025 5:36 PM CDT MAGNESIUM LEVEL Timed Study 06/12/2025 5:36 PM CDT COMPREHENSIVE METABOLIC PANEL Timed Study 06/12/2025 5:36 PM CDT CBC WITHOUT DIFFERENTIAL Timed Study 06/12/2025 5:36 PM CDT INSERT MIDLINE IV Routine 06/12/2025 5:0 5 PM CDT POC GLUCOSE Routine 06/12/2025 4:23 PM CDT VERIFICATION BLOOD GROUP Stat 06/12/2025 4:20 PM CDT Laboratory test POC LACTIC ACID Routine 06/12/2025 3:18 PM CDT BLOOD GAS ARTERIAL Routine 06/12/2025 3: 18 PM CDT POC GLUCOSE Routine 06/12/2025 2:46 PM CDT LACTATE DEHYDROGENASE Routine 06/12/2025 2:45 PM CDT HEPATIC FUNCTION PANEL Routine 2:45 PM CDT POTASSIUM LEVEL Routine 06/12/2025 2:45 PM CDT MAGNESIUM LEVEL Routine 06/12/2025 1:42 PM CDT BASIC METABOLIC PANEL Routine 06/12/2025 1:42 PM CDT UNFRACTIONATED HEPARIN ACTIVITY Timed Study 06/12/2025 1:42 PM CDT POC GLUCOSE Routine [...] EKG 12-LEAD Routine 06/12/2025 6:05 AM CDT TYPE AND SCREEN Routine 06/12/2025 5:42 AM CDT KETONES/BETA HYDROXYBUTYRATE Routine 06/12/2025 5:42 AM CDT LACTIC ACID Stat 06/12/2025 5:42 AM CDT PHOSPHORUS Routine 06/12/2025 5:42 AM CDT MAGNESIUM LEVEL Routine 06/12/2025 5:42 AM CDT COMPREHENSIVE METABOLIC PANEL Routine 06/12/2025 5:42 AM CDT CBC WITH DIFFERENTIAL Stat 06/12/2025 5:42 AM CDT PTT Stat 06/12/2025 5:42 AM CDT POC LACTIC ACID [...] CLOTTING TIME Stat 06/12/2025 2:40 AM CDT XR CHEST PA OR AP 1 VW Stat 12:40 AM CDT EKG 12-LEAD Stat 06/11/2025 11:34 PM CDT TROPONIN BASELINE, 5TH GEN Stat 06/11/2025 11:25 PM CDT BRAIN NATRIURETIC PEPTIDE, BNP OR PROBNP Stat 06/11/2025 11:25 PM CDT MAGNESIUM LEVEL Stat 06/11/2025 11:25 PM CDT COMPREHENSIVE METABOLIC PANEL Stat 06/11/2025 11:25 PM CDT D-DIMER Stat 06/11/2025 11:25 PM CDT PTT Stat 06/11/2025 11:25 PM CDT PROTIME-INR Stat 06/11/2025 11:25 PM CDT CBC WITH DIFFERENTIAL Stat 06/11/2025 11:25 PM CDT CRITICAL CARE Routine 06/11/2025 11:17 PM CDT INTUBATION Routine 06/11/2025 9:31 PM CDT from Last 3 Months Results * TELEMETRY REPORT (06/28/2025 3:38 AM SANDBLAST OPERATOR) Only the most recent of2 resultswithin the time period is included. us Provider Scanning ECG ORDERABLES Final Result * ECHO LIMITED W CONTRAST (06/27/2025 10:50 AM SANDBLAST OPERATOR) EJECTION FRACTION 44 INTERFACE SYSTEM 06/27/2025 9:13 AM SANDBLAST OPERATOR Narrative INTERFACE SYSTEM - 06/27/2025 11:25 AM [facility] Cardiovascular Services Echocardiography Laboratory [address] [place] [id number] Limited Transthoracic Echocardiography Patient: Mikael Study ID: ECHO JUAN Gigi Parnell Gender: M : 1960 Age: 65 Room: [facility] Study 06/27/2025 Pt Inpatient Date: Status: Study 09:13:06 AM CSN #: [id number] Time: Ordering:Anyi López Pipeline Systems Operator: GREG Indications and History: NV/ACS; Suspected complication of NV; Other- see comments. VT/VF. Pt discharge today [...] A2C 31.5 ml/m^2 Legend: (L) and (H) gina values outside specified reference range. [facility] Echo Labs are accredited with the Intersocietal Accreditation Commission - Echocardiography. Prepared and Electronically Authenticated Laurent Feng Confirmed 06/27/2025 11:25 Procedure Note Laurent Feng MD - 06/27/2025 [facility] Cardiovascular Services Echocardiography Laboratory [address] [place] [id number] Limited Transthoracic Echocardiography Patient: Mikael Study ID: ECHO LIMITED PREETI Parnell Gender: M : 1960 Age: 65 Room: [facility] Study 06/27/2025 Pt Inpatient Date: Status: Study 09:13:06 AM [facility] #: [id number] Time: Ordering:Anyi López Pipeline Systems Operator: GREG Indications and History: NV/ACS; Suspected complication of NV; Other-see comments. VT/VF. Pt discharge today needs [...] A2C 31.5 ml/m^2 Legend: (L) and (H) gina values outside specified reference range. [facility] Echo Labs are accredited with the[facility]etal Accreditation Commission - Echocardiography. Prepared and Electronically Authenticated Laurent Feng Confirmed 06/27/2025 11:25 us Anyi López WATERPROOF COATING MACHINE TENDER US ORDERABLES Final Resu lt INTERFACE SYSTEM Refer to clinic/hospital department * (ABNORMAL) POC GLUCOSE (06/27/2025 7:09 AM SANDBLAST OPERATOR) Only the most recent of125 resultswithin the time period is included. GLUCOSE POC 143(H) 74 - 99 mg/dL 06/27/2025 7:09 AM [facility] SPECIMEN SOURCE, GLUCOSE POC Capillary 06/27/2025 7:09 AM [facility] Blood, whole 06/27/2025 7:09 AM SANDBLAST OPERATOR 06/27/2025 7:24 AM SANDBLAST OPERATOR us Issac Rico MD POINT OF CARE TESTING Final Resu lt [facility] CLIA # [id number] [address] [facility] [place] [address] * EKG 12-LEAD (06/27/2025 4:39 AM SANDBLAST OPERATOR) Only the most recent of19 resultswithin the time period is included. 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 [address] Test Date: 2025-06-27 Pat Name: ROM YOUSSEF Department: 12 Room: [address] [place] [address] Gender: Male Environmental Protection Officer: [email or web address] : 1960 Requested By: Order Number: [id number] Reading : Smitha Vora Measurements Intervals Otis Rate: 68 P: 75 AL: 154 QRS: -27 QRSD: 88 T: 89 QT: 510 QTc: 542 Interpretive Statements Normal sinus rhythm ST & T wave abnormality, consider anterolateral ischemia Prolonged QT Abnormal ECG Electronically Signed On 06-27-2025 12:28:08 SANDBLAST OPERATOR by Smitha Vora us Ebony Lopez MD ECG ORDERABLES Final Result INTERFACE SYSTEM Refer to clinic/hospital department * (ABNORMAL) CBC WITH DIFFERENTIAL (06/27/2025 1:51 AM CDT) Only the most recent of19 resultswithin the time period is included. WBC 13.2(H) 4.8 - 10.8 K/uL 06/27/2025 2:43 AM [facility] RBC 3.18(L) 4.60 - 6.20 M/uL 06/27/2025 2:43 AM [facility] HEMOGLOBIN 9.8(L) 14.0 - 18.0 g/dL 06/27/2025 2:43 AM [facility] HEMATOCRIT 30.2(L) 41.0 - 53.0 % 06/27/2025 2:43 AM [facility] [employer] MCV 95.0 84.0 - 103.0 fL 06/27/2025 2:43 AM [facility] MCH 30.8 27.0 - 34.0 pg 06/27/2025 2:43 AM [facility] [employer] [facility] MCHC 32.5 30.0 - 35.0 g/dL 06/27/2025 2:43 AM [facility] PLATELETS 608(H) 140 - 440 K/uL 06/27/2025 2:43 AM [facility] MPV 10.3 8.9 - 12.8 fL 06/27/2025 2:43 AM [facility] RDW 12.5 11.0 - 14.5 % 06/27/2025 2:43 AM [facility] RDW-STDEV 43.4 37.0 - 54.0 fL 06/27/2025 2:43 AM [facility] NEUTROPHILS 68 42 - 75 % 06/27/2025 2:43 AM [facility] LYMPHOCYTES 17(L) 24 - 44 % 06/27/2025 2:43 AM [facility] MONOCYTES 8 2 - 10 % 06/27/2025 2:43 AM [facility] EOSINOPHILS 4 0 - 7 % 06/27/2025 2:43 AM [facility] BASOPHILS 1 0 - 1 % 06/27/2025 2:43 AM [facility] IMMATURE GRANULOCYTES 2 0 - 2 % 06/27/2025 2:43 AM [facility] NEUTROPHIL ABSOLUTE 8.99(H) 2.00 - 8.00 K/uL 06/27/2025 2:43 AM [facility] LYMPHOCYTE ABSOLUTE 2.19 1.20 - 4.00 K/uL 06/27/2025 2:43 AM [facility] MONOCYTE ABSOLUTE 1.01(H) 0.10 - 0.60 K/uL 06/27/2025 2:43 AM [facility] EOSINOPHIL ABSOLUTE 0.57 0.00 - 0.70 K/uL 06/27/2025 2:43 AM [facility] BASOPHILS ABSOLUTE 0.13 0.00 - 0.20 K/uL 06/27/2025 2:43 AM [facility] IMMATURE GRANULOCYTES ABSOLUTE 0.29(H) 0.00 - 0.10 K/uL 06/27/2025 2:43 AM [facility] SMEAR REVIEWED: NA - Not Applicable 06/27/2025 2:43 AM [facility] Blood Venipuncture / Unknown 06/27/2025 1:51 AM CDT 06/27/2025 2:35 AM SANDBLAST OPERATOR us Issac Rico MD HEMATOLOGY ORDERABLES Final Resu lt [facility] CLIA # [id number] [address] [address] [place] [address] * (ABNORMAL) BASIC METABOLIC PANEL (06/27/2025 1:51 AM CDT) Only the most recent of8 resultswithin the time period is included. SODIUM 135(L) 136 - 145 mmol/L 06/27/2025 3:05 AM [facility] POTASSIUM 3.8 3.5 - 5.1 mmol/L 06/27/2025 3:05 AM [facility] CHLORIDE 100 98 - 107 mmol/L 06/27/2025 3:05 AM [facility] CO2 23 22 - 29 mmol/L 06/27/2025 3:05 AM [facility] CALCIUM 8.6(L) 8.8 - 10.2 mg/dL 06/27/2025 3:05 AM [facility] BUN 24(H) 8 - 23 mg/dL 06/27/2025 3:05 AM [facility] CREATININE 0.61(L) 0.67 - 1.17 mg/dL 06/27/2025 3:05 AM [facility] GLUCOSE 161(H) 74 - 99 mg/dL 06/27/2025 3:05 AM [facility] GFR >60 >=60 mL/min/1. 73 sq meter 06/27/2025 3:05 AM [facility] Comment:eGFR calculated with 2020 CKD-EPI equation. Vegetarian diet, extremely high or low muscle mass, and may affect results. Cystatin C with Glomerular Filtration Rate is a suitable alternative for these patients. ANION GAP 12 9 - 20 mmol/L 06/27/2025 3:05 AM [facility] Blood Venipuncture / Unknown 06/27/2025 1:51 AM CDT 06/27/2025 2:33 AM SANDBLAST OPERATOR us Issac Rico MD CHEMISTRY ORDERABLES Final Resul t [facility] CLIA # [id number] [facility] [address] [place] [address] * (ABNORMAL) PROCALCITONIN (06/26/2025 10:36 AM CDT) PROCALCITONIN 0.10(H) <=0.08 ng/mL 06/26/2025 12:02 PM CDT [facility] [place] [facility] Blood Venipuncture / Unknown 06/26/2025 10:36 AM CDT 06/26/2025 11:18 AM CDT Narrative [facility] [place] [facility] - 06/26/2025 12:02 PM CDT The utility [...] Rico MD CHEMISTRY ORDERABLES Final Resul t [facility] CLIA # [id number] [facility] [address] [place] [address] * CTA CHEST W AND/OR WO CONTRAST [...] anterior rib fractures consistent with cardiopulmonary resuscitation. us Issac Rico MD CT ORDERABLES Final Result * UNFRACTIONATED HEPARIN MONITORING (06/24/2025 3:35 PM CDT) Only the most recent of9 resultswithin the time period is included. ANTI-XA UNFRAC HEP 0.18 See Interpretation IU/mL 06/24/2025 4:03 PM CDT [facility] Blood Venipuncture / Unknown 06/24/2025 3:35 PM CDT 06/24/2025 3:40 PM CDT [facility] - 06/24/2025 4:03 PM CDT Therapeutic Range: PT/DVT Heparin Protocol 0.3 - 0.7 IU/ml Cardiac Heparin Protocol 0.3 - 0.6 IU/ml The reference range for this test is specific to the anticoagulant and is not appropriate for monitoring patients on a DOAC protocol. us Issac Rico MD HEMATOLOGY ORDERABLES Final Resu lt Performing Organization Address [facility] Co de Phone Number [facility] CLIA # [id number] [address] [facility] [place] [address] * BLOOD CULTURE (06/24/2025 3:35 PM CDT) Only the most recent of4 resultswithin the time period is included. BLOOD CULTURE No growth 06/29/2025 4:41 PM SANDBLAST OPERATOR [facility] Blood (Peripheral) Venipuncture / Unknown 06/24/2025 3:35 PM CDT 06/24/2025 3:43 PM CDT [facility] - 06/29/2025 4:41 PM SANDBLAST OPERATOR Specimen processed with suboptimal blood volume collected. us Issac Rico MD MICROBIOLOGY - GENERAL ORDERABLE S Final Result Performing Organization Address [facility] Co de Phone Number [facility] CLIA # [id number] [address] [address] [place] [address] * XR VIDEO SWALLOW W SPEECH (06/24/2025 11:47 AM CDT) Anatomical Region Laterality Modality Chest Computed Radiogr aphy 06/24/2025 11:5 5 AM CDT Addenda Addendum by Gallito Ballesteros MD on 06/24/2025 12:35 PM CDT Addendum: [...] AM CDT Narrative 06/24/2025 3:34 PM CDT [facility] Cardiovascular Services Noninvasive Vascular Laboratory [facility] [place] [address] Noninvasive Vascular Lab Venous Exam Complete Lower Extremity Duplex Patient: Rom Youssef Study ID: US VENOUS DOPPLE Gender: M : 1960 Age: 65 Room: Height: Weight: BSA: Pt status: Inpatient Study Date: 06/24/2025 Study Time: 10:30:05 AM BSA: Ordering: Issac Rico Interpreting:Prince Yordan Pipeline Systems Operator: EDIE Indications: LEG PAIN. Summary Impression: 1. [...] FINDINGS - Reported to: TYLER MANUEL - 25 - 10:51AM - DVT [facility] Vascular Lab is accredited with the [facility] Commission for the Accreditation of Vascular Laboratories (ICAVL) Prepared and Electronically Authenticated Prince Yordan Confirmed 06/24/2025 15:34 Procedure Note Prince Farr MD - 06/24/2025 [facility] Cardiovascular Services Noninvasive Vascular Laboratory [address] [place] [address] Noninvasive Vascular Lab Venous Exam Complete Lower Extremity Duplex Patient: Rom Youssef Study ID: US VENOUS DOPPLE Gender: M : 1960 Age: 65 Room: Height: Weight: BSA: Pt status: Inpatient Study Date: 06/24/2025 Study Time: 10:30:05 AM BSA: Ordering: Issac Rico Interpreting:Prince Yordan Pipeline Systems Operator: EDIE Indications: LEG PAIN. Summary Impression: 1. [...] Noncompressible CRITICAL FINDINGS - Reported to: TYLER Kathleen 06/24/25 - 10:51AM - DVT [facility] Vascular Lab is accredited with the[facility]tersocietal Commission for the Accreditation of Vascular Laboratories (ICAVL) Prepared and Electronically Authenticated Prince Elysia Farr 06/24/2025 15:34 us Issac Rico MD US ORDERABLES Final Result * US DOPPLER VENOUS ARM BILATERAL (06/24/2025 11:03 AM CDT) Anatomical Region Laterality Modality Upper Extremity Ultrasound 06/24/2025 10:1 1 AM CDT Narrative 06/24/2025 3:26 PM CDT [facility] Cardiovascular Services Noninvasive Vascular Laboratory [address] [place] [address] Noninvasive Vascular Lab Venous Exam Complete Upper Extremity Duplex Patient: Rom Youssef Study ID: US DOPPLER VENOU Gender: M : 1960 Age: 65 Room: Height: Weight: BSA: Pt status: Inpatient Study Date: 06/24/2025 Study Time: 10:11:59 AM BSA: Ordering: Issac Rico Interpreting:Prince Yordan Pipeline Systems Operator: EDIE Indications: Dvt. Summary Impression: 1. No [...] and Electronically Authenticated Prince Yordan Confirmed 06/24/2025 15:26 Procedure Note Prince Farr MD - 06/24/2025 [facility] Cardiovascular Services Noninvasive Vascular Laboratory [address] [place] [id number] Noninvasive Vascular Lab Venous Exam Complete Upper Extremity Duplex Patient: Rom Youssef Study ID: US DOPPLER VENOU Gender: M : 1960 Age: 65 Room: Height: Weight: BSA: Pt status: Inpatient Study Date: 06/24/2025 Study Time: 10:11:59 AM BSA: Ordering: Issac Rico Interpreting:Prince Yordan Pipeline Systems Operator: EDIE Indications: Dvt. Summary Impression: 1. No [...] [facility] is accredited with the[facility] Commission for the Accreditation of Vascular Laboratories (ICAVL) Prepared and Electronically Authenticated Prince Yordan Confirmed 06/24/2025 15:26 Issac Rico MD US ORDERABLES Final Result * PERIPHERAL BLOOD SMEAR PATHOLOGY INTERP (06/24/2025 3:38 AM CDT) Pathologist [facility] [place] PERIPHERAL BLOOD SMEAR INTERP See Interpretation Below 06/25/2025 3:29 PM CDT [facility] Comment: The red cells are normocytic [...] Robinson Brannon MD 06/25/2025 3:29 PM CDT [facility] Blood Venipuncture / Unknown 06/24/2025 3:38 AM CDT 06/24/2025 4:15 AM CDT Issac Rico MD HEMATOLOGY ORDERABLES Final Resu lt [id number] [address] [place] [address] * PHOSPHORUS (06/23/2025 2:49 AM CDT) Only the most recent of13 resultswithin the time period is included. Pathologist [facility] [place] PHOSPHORUS 4.0 2.5 - 4.5 mg/dL 06/23/2025 3:39 AM CDT [facility] Blood Venipuncture / Unknown 06/23/2025 2:49 AM CDT 06/23/2025 2:55 AM CDT Love Suad Gonzalez DIRECTOR OF MARKETING COMMUNICATIONS CHEMISTRY ORDERABLES Final Result Performing Organization Address [facility] Co de Phone Number [facility] CLIA # [id number] [address] [address] * MAGNESIUM LEVEL (06/23/2025 2:49 AM CDT) Only the most recent of16 resultswithin the time period is included. MAGNESIUM 2.3 1.6 - 2.4 mg/dL 06/23/2025 3:39 AM CDT [facility] Blood Venipuncture / Unknown 06/23/2025 2:49 AM CDT 06/23/2025 2:55 AM CDT Love Suad Gonzalez DIRECTOR OF MARKETING COMMUNICATIONS CHEMISTRY ORDERABLES Final Result Performing Organization Address [facility] de Phone Number [facility] CLIA # [id number] [address] [address] * (ABNORMAL) COMPREHENSIVE METABOLIC PANEL (06/23/2025 2:49 AM CDT) Only the most recent of14 resultswithin the time period is included. SODIUM 140 136 - 145 mmol/L 06/23/2025 3:39 AM CDT [facility] POTASSIUM 3.6 3.5 - 5.1 mmol/L 06/23/2025 3:39 AM CDT [facility] CHLORIDE 104 98 - 107 mmol/L 06/23/2025 3:39 AM CDT [facility] CO2 23 22 - 29 mmol/L 06/23/2025 3:39 AM CDT [facility] CALCIUM 8.8 8.8 - 10.2 mg/dL 06/23/2025 3:39 AM CDT [facility] BUN 28(H) 8 - 23 mg/dL 06/23/2025 3:39 AM T [facility] CREATININE 0.76 0.67 - 1.17 mg/dL 06/23/2025 3:[address] [facility] GLUCOSE 195(H) 74 - 99 mg/dL 06/23/2025 3:[address] [facility] TOTAL PROTEIN 6.9 6.4 - 8.3 g/dL 06/23/2025 3:[address] [facility] ALBUMIN 2.9(L) 3.5 - 5.2 g/dL 06/23/2025 3:[address] [facility] BILIRUBIN TOTAL 0.7 0.0 - 1.0 mg/dL 06/23/2025 3:[address] [facility] ALKALINE PHOSPHATASE 153(H) 40 - 129 U/L 06/23/2025 3:[address] [facility] AST 24 10 - 50 U/L 06/23/2025 3:[address] [facility] ALT 23 <=50 U/L 06/23/2025 3:[address] [facility] GFR >60 >=60 mL/min/1.7 3 sq meter 06/23/2025 3:[address] [facility] Comment:eGFR calculated with 2020 CKD-EPI equation. Vegetarian diet, extremely high or low muscle mass, and may affect results. Cystatin C with Glomerular Filtration Rate is a suitable alternative for these patients. ANION GAP 13 9 - 20 mmol/L 06/23/2025 3:[address] [facility] Blood Venipuncture / Unknown 06/23/2025 2:49 AM CDT 06/23/2025 2:55 AM CDT Love Gonzalez NP CHEMISTRY ORDERABLES Final Result [facility] CLIA # [id number] [address] [place] [address] [place] [address] * (ABNORMAL) PTT (06/22/2025 6:33 PM CDT) Only the most recent of21 resultswithin the time period is included. PTT 23.3(L) 24.8 - 37.2 seconds 06/22/2025 7:11 PM CDT [facility] Blood Venipuncture / Unknown 06/22/2025 6:33 PM CDT 06/22/2025 6:41 PM CDT Narrative [facility] - 06/22/2025 7:11 PM CDT Therapeutic Range: Hi-level PE/DVT heparin protocol 80.1 - 95.0 sec Lo-level PE/DVT heparin protocol 70.1 - 85.0 sec Cardiac Heparin Protocol 70.1 - 100.0 sec us Prince Yordan SANTANA HEMATOLOGY ORDERABLES Final Resu lt [facility] CLIA # [id number] [id number] [place] [address] * XR ABDOMEN FOR FEEDING TUBE 1 VW (06/22/2025 6:25 AM CDT) Only the most recent of4 resultswithin the time period is included. Anatomical Region Laterality Modality Abdomen Computed Radiogr [...] DIAGNOSTIC IMAGING ORDERABL ES Final Result * XR CHEST PA OR AP 1 VW (06/21/2025 5:23 AM CDT) Only the most recent of15 resultswithin the time period is included. Anatomical Region Laterality Modality Chest Computed Radiogr aphy 06/21/2025 5:23 AM CDT Impressions 06/21/2025 10:34 AM CDT IMPRESSION: Please see below. EXAM: XR CHEST PA OR AP 1 VW DATE/TIME OF EXAM: 06/21/2025 5:23 AM REASON FOR STUDY: Line Placement, Comment: IABP and Early Branch Chelsie DIAGNOSIS: ST elevation myocardial infarction (STEMI), [...] FOR STUDY: Line Placement, Comment: IABP and Early Branch Chelsie DIAGNOSIS: ST elevation myocardial infarction (STEMI), [...] (ABNORMAL) TSH (06/21/2025 3:02 AM CDT) Pathologist [facility] [place] TSH 4.27(H) 0.27 - 4.20 uIU/mL 06/21/2025 11:00 AM CDT [facility] Blood Venipuncture / Unknown 06/21/2025 3:02 AM CDT 06/21/2025 3:18 AM CDT Anyi López WATERPROOF COATING MACHINE TENDER CHEMISTRY ORDERABLES Final Result [facility] CLIA # [id number] [address] [place] [address] [place] [address] * POC ACTIVATED CLOTTING TIME (06/19/2025 10:49 AM CDT) Only the most recent of7 resultswithin the time period is included. ACTIVATED CLOTTING TIME POC 135 116 - 140 sec 06/19/2025 10:49 AM CDT [facility] Blood 06/19/2025 10:4 9 AM CDT 06/19/2025 6:53 PM CDT Zachary Hamilton MD POINT OF CARE TESTING Final Res ult Performing Organization Address [facility]/ZIP Co de Phone Number [facility] CLIA # [id number] [address] [address] [place] [address] * (ABNORMAL) POTASSIUM LEVEL (06/18/2025 5:02 PM CDT) Only the most recent of3 resultswithin the time period is included. POTASSIUM 3.4(L) 3.5 - 5.1 mmol/L 06/18/2025 5:38 PM CDT [facility] Blood Arterial / Unknown 5:02 PM CDT 06/18/2025 5:14 PM CDT Zachary Hamilton MD CHEMISTRY ORDERABLES Final Resu lt Performing Organization Address [facility]/ZIP Co de Phone Number [facility] CLIA # [id number] [address] [address] [place], [place] [address] * SPUTUM CULTURE WITH GRAM STAIN (06/18/2025 12:11 PM CDT) Only the most recent of2 resultswithin the time period is included. CULTURE No pathogens isolated. Normal respiratory alon reduced. 06/20/2025 9:39 AM CDT [facility] GRAM STAIN Smear contains </=10 squamous epithelial cells per low power field 06/20/2025 9:39 AM CDT [facility] GRAM STAIN <25 PMN WBC/LPF 9:39 AM CDT [facility] GRAM STAIN No organisms observed 06/20/2025 9:39 AM CDT [facility] Sputum SPUTUM SPECIMEN OBTAINED BY ASPIRATION / Unknown Collection / Unknown 06/18/2025 12:11 PM CDT 06/18/2025 12:17 PM CDT Zachary Hamilton MD MICROBIOLOGY - GENERAL ORDERABL ES Final Result Performing Organization Address [facility] de Phone Number [facility] CLIA # [id number] [address] [address] * POC LACTIC ACID (06/18/2025 7:15 AM CDT) Only the most recent of39 resultswithin the time period is included. LACTIC ACID POC 0.8 <=2.0 mmol/L 06/18/2025 7:15 AM CDT [facility] SPECIMEN SOURCE, GASES POC Arterial 06/18/2025 7:15 AM CDT [facility] SITE POC No Charge 06/18/2025 7:15 AM CDT [facility] Blood 06/18/2025 7:15 AM CDT 06/18/2025 7:17 AM CDT Narrative [facility] - 06/18/2025 7:15 AM CDT References ranges displayed are for Arterial samples. Zachary Hamilton MD POINT OF CARE TESTING Final Res ult Performing Organization Address [facility] de Phone Number [facility] CLIA # [id number] [address] [address] * (ABNORMAL) BLOOD GAS ARTERIAL (06/18/2025 7:15 AM CDT) Only the most recent of36 resultswithin the time period is included. PH BLOOD POC 7.45 7.35 - 7.45 06/18/2025 7:15 AM CDT [facility] PCO2 POC 35 35 - 45 mm Hg 06/18/2025 7:[address] [facility] PO2 POC 131(H) 80 - 105 mm Hg 06/18/2025 7:[address] [facility] HCO3 (CALC) POC 24 22 - 26 mmol/L 06/18/2025 7:[address] [facility] HEMOGLOBIN POC 9.6(L) 12.0 - 18.0 g/dL 06/18/2025 7:[address] [facility] BASE EXCESS POC 0 -2 - 3 mmol/L 06/18/2025 7:[address] [facility] O2 SATURATION POC 99(H) 95 - 98 % 025 7:[address] [facility] SODIUM POC 140 138 - 146 mmol/L 06/18/2025 7:[address] [facility] POTASSIUM POC 4.0 3.5 - 4.9 mmol/L 06/18/2025 7:[address] [facility] HEMATOCRIT POC 29(L) 38 - 51 % 06/18/2025 7:[address] [facility] PH TEMP CORRECT 7.45 7.35 - 7.45 06/18/2025 7:[address] [facility] PCO2 TEMP CORRECT 35 35 - 45 mm Hg 06/18/2025 7:[address] [facility] PO2 TEMP CORRECT 131(H) 80 - 105 mm Hg 06/18/2025 7:[address] [facility] SPECIMEN SOURCE, GASES POC Arterial 06/18/2025 7:[address] [facility] CALCIUM IONIZED POC 4.6(L) 4.8 - 5.2 mg/dL 06/18/2025 7:[address] [facility] TCO2 (CALC) POC 25 23 - 27 mmol/L 06/18/2025 7:[address] [facility] FIO2 45.0 21.0 - 100.0 % 06/18/2025 7:[address] [facility] Comment:FIO2 values reported <21.0 indicate O2 flow in Liters/minute. Values >/= 21.0 indicate percent O2. P/F RATIO POC 291 06/18/2025 7:15 AM CDT [facility] Comment: P/F Ratio Interpretation ARDS SEVERITY PaO2/FiO2 Mild 200-300 Moderate 100-200 Severe <100 PEEP POC 12 06/18/2025 7:15 AM CDT [facility] PUNC SITE POC No Charge 06/18/2025 7:15 AM CDT [facility] VENT MODE POC PRVC 06/18/2025 7:15 AM CDT [facility] PATIENT'S TEMPERATURE POC 37.0 degrees 06/18/2025 7:15 AM CDT [facility] Blood, arterial 06/18/2025 7 :15 AM CDT 06/18/2025 7:17 AM CDT us Zachary Hamilton MD ABG ORDERABLES Final Result Performing Organization Address [facility]/ZIP Co de Phone Number [facility] CLIA # [id number] [address] [address] [place] [address] * (ABNORMAL) HAPTOGLOBIN (06/18/2025 3:36 AM CDT) Only the most recent of7 resultswithin the time period is included. HAPTOGLOBIN 305(H) 30 - 200 mg/dL 06/18/2025 4:20 AM CDT [facility] Blood Arterial / Unknown 3:36 AM CDT 06/18/2025 3:39 AM CDT us Zenaida Ray MD CHEMISTRY ORDERABLES Final Resul t Performing Organization Address [facility]/ZIP Co de Phone Number [facility] CLIA # [id number] [id number] [place], [place] [address] * (ABNORMAL) BLOOD GAS,(INCL. H+H, LYTES, GLUC) (06/17/2025 3:38 PM CDT) Only the most recent of3 resultswithin the time period is included. PH BLOOD POC 7.47(H) 7.35 - 7.45 06/17/2025 3:38 PM T [facility] PCO2 POC 35 35 - 45 mm Hg 06/17/2025 3:38 PM T [facility] PO2 POC 70(L) 80 - 105 mm Hg 06/17/2025 3:[address] [facility] TCO2 (CALC) POC 27 23 - 27 mmol/L 06/17/2025 3:[address] [facility] HCO3 (CALC) POC 26 22 - 26 mmol/L 06/17/2025 3:[address] [facility] O2 SATURATION POC 98 95 - 98 % 06/17/2025 3:[address] [facility] BASE EXCESS POC 2 -2 - 3 mmol/L 06/17/2025 3:[address] [facility] HEMOGLOBIN POC 9.0(L) 12.0 - 18.0 g/dL 06/17/2025 3:[address] [facility] HEMATOCRIT POC 27(L) 38 - 51 % 06/17/2025 3:[address] [facility] GLUCOSE POC 139(H) 74 - 99 mg/dL 06/17/2025 3:[address] [facility] SODIUM POC 139 138 - 146 mmol/L 06/17/2025 3:[address] [facility] POTASSIUM POC 3.3(L) 3.5 - 4.9 mmol/L 06/17/2025 3:[address] [facility] CALCIUM IONIZED POC 4.7(L) 4.8 - 5.2 mg/dL 06/17/2025 3:[address] [facility] PH TEMP CORRECT 7.47(H) 7.35 - 7.45 06/17/20 3:38 PM T [facility] PCO2 TEMP CORRECT 35 35 - 45 mm Hg 06/17/2025 3:38 PM CDT [facility] PO2 TEMP CORRECT 70(L) 80 - 105 mm Hg 06/17/2025 3:38 PM CDT [facility] SPECIMEN SOURCE, GASES POC Arterial 06/17/2025 3:38 PM CDT [facility] PATIENT'S TEMPERATURE POC 37.0 degrees 06/17/2025 3:38 PM CDT [facility] PUNC SITE POC No Charge 06/17/2025 3:38 PM CDT [facility] Blood, arterial 06/17/2025 3 :38 PM CDT 06/17/2025 3:39 PM CDT us Zachary Hamilton MD ABG ORDERABLES Final Result [facility] CLIA # [id number] [address] [place] [id number] * XR ABDOMEN 1 VW (06/17/2025 10:29 [...] extrailiac vasculature. Orta catheter. Remainder unremarkable. us Zachary Hamilton MD DIAGNOSTIC IMAGING ORDERABLES F inal Result * ECHO LIMITED WO DOPPLER (06/16/2025 2:10 PM CDT) Only the most recent of2 resultswithin the time period is included. EJECTION FRACTION 45 INTERFACE SYSTEM 06/16/2025 1:53 PM CDT Narrative INTERFACE SYSTEM - 06/16/2025 2:42 PM CDT [facility] Echocardiography Laboratory [address] [place] [id number] Limited Transthoracic Echocardiography Patient: Mikael Study ID: [id number] JUAN Parnell Gender: M : 1960 Age: 65 Room: [facility] Study 06/16/2025 Pt Inpatient Date: Status: Study 01:53:44 PM [facility] #: [id number] Time: Ordering:Zachary Hamilton Pipeline Systems Operator: LVO Indications and History: Assess cardiac function [...] A2C 16 ml/m^2 Legend: (L) and (H) gina values outside specified reference range. [facility] Echo Labs are accredited with the Intersocietal Accreditation Commission - Echocardiography. Prepared and Electronically Authenticated Rudy Callahan MD Confirmed 06/16/2025 14:42 Procedure Note Rudy Callahan MD - 06/16/2025 [facility] Cardiovascular Services Echocardiography Laboratory [address] [place] [address] Limited Transthoracic Echocardiography Patient: Mikael Study ID: ECHO JUAN Parnell Gender: M : 1960 Age: 65 Room: [facility] Study 06/16/2025 Pt Inpatient Date: Status: Study 01:53:44 PM CSN #: [id number] Time: Ordering:Zachary Hamilton Pipeline Systems Operator: LVO Indications and History: Assess cardiac function [...] A2C 16 ml/m^2 Legend: (L) and (H) gina values outside specified reference range. [facility] Labs are accredited with theIntersocietal Accreditation Commission - Echocardiography. Prepared and Electronically Authenticated Rudy Callahan MD Confirmed 06/16/2025 14:42 us Zachary Hamilton MD US ORDERABLES Final Result INTERFACE SYSTEM Refer to clinic/hospital department * (ABNORMAL) TROPONIN (06/16/2025 12:20 PM CDT) Only the most recent of10 resultswithin the time period is included. [facility] TROPONIN T, 5TH GEN 3,305(HH) <=15 ng/L 06/16/2025 12:57 PM CDT [facility] Blood Venipuncture / Unknown 06/16/2025 12:20 PM CDT 06/16/2025 12:24 PM CDT Narrative [facility] - 06/16/2025 12:57 PM CDT Troponin elevated. Prince Yordan SANTANA CHEMISTRY ORDERABLES Final Resul t Performing Organization Address City/[facility] Co de Phone Number [facility] CLIA # [id number] [facility] [address] * (ABNORMAL) OXIMETRY (06/16/2025 4:49 AM CDT) Only the most recent of3 resultswithin the time period is included. [facility] OXYHEMOGLOBIN POC 67.1 40.0 - 70.0 % 06/16/2025 4:49 AM T [facility] HEMOGLOBIN POC 9.2(L) 12.0 - 18.0 g/dL 06/16/2025 4:49 AM T [facility] O2 SATURATION POC 68 40 - 70 % 025 4:49 AM T [facility] SPECIMEN SOURCE, GASES POC Venous Mixed 06/16/2025 4:49 AM T [facility] SAMPLE SITE, GASES POC N-SY 06/16/2025 4:49 AM T [facility] PUNC SITE POC No Charge 06/16/2025 4:[address] [facility] Blood 06/16/2025 4:49 AM CDT 06/16/2025 4:51 AM CDT Zachary Hamilton MD ABG ORDERABLES Final Result Performing Organization Address [facility] de Phone Number [facility] # [id number] [address] [facility] [place] [address] * TRANSFUSE RED BLOOD CELLS (06/16/2025 1:10 AM CDT) Zachary Hamilton MD BLOOD TRANSFUSION ORDERABLES Fi nal Result * PREPARE RED BLOOD CELLS (06/15/2025 5:31 PM CDT) Only the most recent of5 resultswithin the time period is included. [facility] COMPONENT TYPE [id number] [facility] -- [facility] COMPONENT IDENTIFICATION [id number] [facility] UNIT ABO O [facility] UNIT RH POS [facility] CROSSMATCH Compatible [facility] [place] COMPONENT STATUS Returned [facility] -- [place] COMPONENT EXPIRATION DATE/TIME [id number] [facility] COMPONENT CODING SYSTEM 5100 [facility] VOLUME, BLOOD PRODUCT 350 [facility] -- [facility] 06/15/2025 5:31 PM CDT us Zachary Hamilton MD LAB TRANSFUSION ORDERABLES Edit ed Result - Final Performing Organization Address [facility] Co de Phone Number [facility]#[id number] [address] [place] [address], * (ABNORMAL) LACTATE DEHYDROGENASE (06/15/2025 4:03 AM CDT) Only the most recent of4 resultswithin the time period is included. LD (LACTATE DEHYDROGENASE) 666(H) 135 - 225 U/L 06/15/2025 5:46 AM CDT [facility] Blood Venipuncture / Unknown 06/15/2025 4:03 AM CDT 06/15/2025 4:10 AM CDT us Zenaida Ray MD CHEMISTRY ORDERABLES Final Resul t [facility] CLIA # [id number] [address] [address] [place] [address] * (ABNORMAL) LIPID PANEL (06/14/2025 11:23 AM CDT) [facility] Signature CHOLESTEROL 85 <200 mg/dL 06/14/2025 12:36 PM CDT [facility] TRIGLYCERIDE 152(H) <150 mg/dL 06/14/2025 12:36 PM CDT [facility] HDL 23(L) 40 - 59 mg/dL 06/14/2025 12:36 PM CDT [facility] LDL CALCULATED 32 <100 mg/dL 06/14/2025 12:36 PM CDT [facility] NON-HDL CHOLESTEROL 62 <130 mg/dL 06/14/2025 12:36 PM CDT [facility] Blood Arterial / Unknown 11:23 AM CDT 06/14/2025 11:35 AM CDT Narrative [facility] - 06/14/2025 12:36 PM CDT TOTAL CHOLESTEROL [...] Reference Ranges for Lipid Panels (NCEP/AMA) . Zachary Hamilton MD CHEMISTRY ORDERABLES Final Resu lt Performing Organization Address [facility] Co de Phone Number [facility] CLIA # [id number] [address] [place] [address] * (ABNORMAL) VANCOMYCIN LEVEL TROUGH (06/14/2025 10:13 AM CDT) VANCOMYCIN, TROUGH 8.2(L) 10.0 - 17.0 ug/mL 06/14/2025 10:56 AM CDT [facility] Blood Collection / Unknown 06/14/2025 10:13 AM CDT 06/14/2025 10:38 AM CDT Zachary Hamilton MD CHEMISTRY ORDERABLES Final Resu Performing Organization Address [facility] de Phone Number [facility] [employer] [facility] CLIA # [id number] [address] [place] [address] * TYPE AND SCREEN (06/14/2025 8:44 AM CDT) Only the most recent of2 resultswithin the time period is included. ABO GROUP O 06/14/2025 10:03 AM CDT [facility] RH (D) TYPE Positive 06/14/2025 10:03 AM CDT [facility] ANTIBODY SCREEN Negative 06/14/2025 10:03 AM CDT [facility] -- [facility] Blood Arterial / Unknown 8:44 AM CDT 06/14/2025 8:50 AM CDT Zachary Hamilton MD BLOOD BANK ORDERABLES Edited Re sult - Final Performing Organization Address City/[facility]/ZIP Co de Phone Number [facility] CLIA#[id number] [address] [place] [address], * (ABNORMAL) HEMOGLOBIN A1C (06/14/2025 3:08 AM CDT) HEMOGLOBIN A1C 6.3(H) <=5.6 % 06/16/2025 11:21 AM CDT [facility] EST. AVG GLUCOSE, A1C 134 mg/dL 06/16/2025 11:21 AM CDT [facility] Blood Venipuncture / Unknown 06/14/2025 3:08 AM CDT 06/14/2025 3:14 AM CDT Narrative [facility] - 06/16/2025 11:21 AM CDT HGB A1C INTERPRETATION NORMAL: <5.7% PRE-DIABETES: 5.7 - 6.4% DIABETES: 6.5% OR GREATER Zachary Hamilton MD CHEMISTRY ORDERABLES Final Resu lt Performing Organization Address [facility] Co de Phone Number [facility] CLIA # [id number] [address] [place] [address] * (ABNORMAL) PNEUMONIA PATHOGEN PCR PANEL (06/13/2025 5:50 PM CDT) Only the most recent of2 resultswithin the time period is included. Haemophilus influenzae by PCR DETECTED( A) Not Detected 06/13/2025 9:01 PM CDT [facility] Streptococcus pneumoniae by PCR DETECTED( A) Not Detected 06/13/2025 9:01 PM CDT [facility] BAL (Lung, RML) Collection / Unknown 06/13/2025 5:50 PM CDT 06/13/2025 6:27 PM CDT Narrative [facility] - 06/13/2025 9:01 PM CDT NOTE: Per the manager membership, this current lot of reagent may be insensitive for the full detection of adenoviruses. If adenovirus is within the differential diagnosis, the specimen may be submitted to a reference laboratory for further testing. If desired, order [id number] Lab Test, stating Adenovirus by PCR testing [...] NDM OXA-48-like VIM mecA/C and MREJ Zenaida Ray MD MICROBIOLOGY - GENERAL ORDERABLE S Final Result [facility] CLIA # [id number] [address] [place] [phone] * RESPIRATORY CULTURE WITH GRAM STAIN (06/13/2025 5:50 PM CDT) CULTURE <=1000 cfu/mL Normal upper respiratory alon 06/15/2025 11:44 AM CDT [facility] GRAM STAIN No organisms observed 06/15/2025 11:44 AM CDT [facility] BAL (Lung, RML) Collection / Unknown 06/13/2025 5:50 PM CDT 06/13/2025 6:39 PM CDT us Zenaida Ray MD MICROBIOLOGY - GENERAL ORDERABLE S Final Result [facility] CLIA # [id number] [id number] [place] [address] * LEFT HEART CATH, INTRA AORTIC BALLOON PUMP REMOVAL, INTRA AORTIC BALLOON PUMP INSERTION, PERCUTANEOUS CORONARY INTERVENTION, IVUS-CORONARY INTRAVASCULAR (06/13/2025 10:58 AM CDT) Only the most recent of2 resultswithin the time period is included. Narrative [facility] - 06/13/2025 11:13 AM CDT Table formatting from the original result was not included. Cardiac Catheterization Report [place], [place] PATIENT: Rom Youssef PATIENT NUMBER: [id number] BIRTHDATE: 1960 DATE: 06/13/2025 TIME: 11:13 AM [...] was monitored throughout the procedure by myself, Qa Test Lead staff. Blood pressure, oxygen level, heart rate [...] pump was then removed via the 8 Turkish sheath. 6 Turkish JR4 catheter to engage the right coronary artery. Cine angiogram obtained. Subsequently, 6 Turkish JR4 guide catheter engaged the right coronary artery. Additional heparin utilized for therapeutic ACT (refer to medication documentation for details). 0.014 run-through wire then advanced past in-stent thrombosis lesion. 3 x 12 mm balloon used for dilatation with mu-ism of flow. 4 mm NC balloon angioplasty [...] thrombus. Otherwise, excellent angiographic result obtained. 6 Turkish JL4 catheter utilized to engage the left coronary system and obtain cine angiograms. 6 Turkish JR4 used to obtain the left heart hemodynamic parameters. A new 40 cc intra-aortic balloon pump then again advanced into the aorta through the 8 Turkish sheath. This was placed at 1:1 augmentation [...] began. The augmentation was 1:1. PCI RISK [facility] Frailty Score: Terminally Ill (Life expectancy < 6 months). NYHA Class: Class II: Slight limitation of physical activity. Comfortable at rest, but ordinary physical activity results in symptoms of HF. (GONZALEZ, walking more than 2 blocks would cause GONZALEZ) CV Instability: persistent ischemic symptoms (chest pain, LUIS). PAD: Unknown. Cerebrovascular Disease History: Unknown Prince Yordan SANTANA CUP CATH ORDERABLES Final Result [facility] CARDIOLOGY [facility] [id number] [address] [facility] [address] [place] [address], [place] [phone] * INSERT MIDLINE IV (06/12/2025 8:49 PM CDT) Only the most recent of2 resultswithin the time period is included. Narrative Rufina Pelayo RN - 06/12/2025 8:49 PM CDT Rufina Pelayo RN 06/12/2025 8:52 PM VASCULAR ACCESS NOTE Midline PATIENT NAME: Rom Youssef DATE OF : 1960 CSN: [id number] DATE: 06/12/2025 Room: [address] [place] [address] Admit Date: 06/12/2025 Hospital day: LOS: 0 [...] EMR flowsheet Patient tolerated well. Rufina Pelayo, KALEB Charles Hermelindo Magana MD IV THERAPY ORDERABLES Final Result * (ABNORMAL) CBC WITHOUT DIFFERENTIAL (06/12/2025 5:36 PM CDT) Pathologist [facility] WBC 19.4(H) 4.8 - 10.8 K/uL 06/12/2025 5:52 PM CDT [facility] RBC 3.37(L) 4.60 - 6.20 M/uL 06/12/2025 5:52 PM CDT [facility] HEMOGLOBIN 10.8(L) 14.0 - 18.0 g/dL 06/12/2025 5:52 PM T [facility] HEMATOCRIT 31.7(L) 41.0 - 53.0 % 06/12/2025 5:52 PM CDT [facility] MCV 94.1 84.0 - 103.0 fL 06/12/2025 5:52 PM CDT [facility] MCH 32.0 27.0 - 34.0 pg 06/12/2025 5:52 PM CDT [facility] MCHC 34.1 30.0 - 35.0 g/dL 06/12/2025 5:52 PM CDT [facility] PLATELETS 204 140 - 440 K/uL 06/12/2025 5:52 PM CDT [facility] MPV 9.4 8.9 - 12.8 fL 06/12/2025 5:52 PM CDT [facility] RDW 13.9 11.0 - 14.5 % 06/12/2025 5:52 PM CDT [facility] RDW-STDEV 48.3 37.0 - 54.0 fL 06/12/2025 5:52 PM CDT [facility] Blood Arterial / Unknown 5:36 PM CDT 06/12/2025 5:46 PM CDT Zenaida Ray MD HEMATOLOGY ORDERABLES Final Resu lt [facility] CLIA # [id number] [address] [place] [address] * VERIFICATION BLOOD GROUP (06/12/2025 4:20 PM CDT) ABO GROUP O 06/12/2025 4:46 PM CDT [facility] RH (D) TYPE Positive 06/12/2025 4:46 PM CDT [facility] Blood Arterial / Unknown 4:20 PM CDT 06/12/2025 4:28 PM CDT Charles Magana MD BLOOD BANK ORDERABLES Final Result Performing Organization Address [facility]/ZIP Co de Phone Number [facility] CLIA#[id number] [address] [place] [place] [address] * (ABNORMAL) HEPATIC FUNCTION PANEL (06/12/2025 2:45 PM CDT) TOTAL PROTEIN 5.5(L) 6.4 - 8.3 g/dL 06/12/2025 3:43 PM CDT [facility] ALBUMIN 3.0(L) 3.5 - 5.2 g/dL 06/12/2025 3:43 PM CDT [facility] BILIRUBIN TOTAL 0.5 0.0 - 1.0 mg/dL 06/12/2025 3:43 PM CDT [facility] BILIRUBIN DIRECT 0.2 0.0 - 0.3 mg/dL 06/12/2025 3:43 PM CDT [facility] ALKALINE PHOSPHATASE 81 40 - 129 U/L 06/12/2025 3:43 PM CDT [facility] AST 326(H) 10 - 50 U/L 06/12/2025 3:43 PM CDT [facility] ALT 170(H) <=50 U/L 06/12/2025 3:43 PM CDT [facility] Blood Arterial / Unknown 2:45 PM CDT 06/12/2025 2:59 PM CDT Zenaida Ray MD CHEMISTRY ORDERABLES Final Resul t Performing Organization Address [facility]/ZIP Co de Phone Number [facility] CLIA # [id number] [address] [place] [address] * XR PELVIS 1 OR 2 VW [...] Orta catheter. Pelvic radiograph is otherwise unremarkable. us Zenaida Ray MD DIAGNOSTIC IMAGING ORDERABLES Fi nal Result * ECHO COMPLETE - CONTRAST AND STRAIN IF INDICATED (06/12/2025 6:25 AM CDT) EJECTION FRACTION 48 INTERFACE SYSTEM 06/12/2025 5:49 AM CDT Narrative INTERFACE SYSTEM - 06/12/2025 8:50 AM CDT [facility] Cardiovascular Services Echocardiography Laboratory [address] [place] [address] Transthoracic Echocardiography Patient: Mikael Study ID: ECHO CHANG Parnell Gender: M : 1960 Age: 65 Room: [facility] Study 06/12/2025 Pt Inpatient Date: Status: Study 05:49:12 AM CSN #: [id number] Time: Ordering: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 Labs, prior tests, procedures, and surgery: Catheterization [...] study is available for comparison. Study status: Realtime Reporter. Procedure: A transthoracic echocardiogram was performed. Image [...] The estimated ejection fraction is 45-50%. For [facility] reporting: the left ventricular ejection fraction is [...] avg, TDI 8 Legend: (L) and (H) gina values outside specified reference range. [facility] Echo [facility] are accredited with the Intersocietal Accreditation Commission - Echocardiography. 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 Labs, prior tests, procedures, and surgery: Catheterization [...] prior study is available for comparison.Study status: Realtime Reporter. Procedure: A transthoracic echocardiogram wasperformed. Image quality [...] avg, TDI 8 Legend: (L) and (H) gina values outside specified reference range. [facility] are accredited with theIntersocietal Accreditation Commission - Echocardiography. Prepared and Electronically Authenticated Prince Yordan Confirmed 06/12/2025 08:50 us Prince Yordan SANTANA ORDERABLES Final Result INTERFACE SYSTEM Refer to clinic/hospital department * EXTRA TUBE (URINE ALVES) (06/12/2025 6:19 AM CDT) Urine (Urine, indwelling (Orta) catheter) Collection / Unknown 06/12/2025 6:19 AM CDT 06/12/2025 6:24 AM CDT Love Suad Carlos DIRECTOR OF MARKETING COMMUNICATIONS URINE ORDERABLES Elsie edil Result [facility] CLIA # [id number] [address] [address] [place] [address] * (ABNORMAL) DRUG SCREEN, URINE (06/12/2025 6:19 AM CDT) [facility] AMPHETAMINE QUAL, URINE Negative Negative 06/12/2025 7:15 AM CDT [facility] BARBITURATE QUAL, URINE Negative Negative 06/12/2025 7:15 AM CDT [facility] BENZODIAZEPINE QUAL, URINE Presumptive Positive(A) Negative 06/12/2025 7:15 AM CDT [facility] COCAINE QUAL URINE Negative Negative 06/12/2025 7:15 AM CDT [facility] OPIATE QUAL, URINE Negative Negative 06/12/2025 7:15 AM CDT [facility] CANNABINOIDS QUAL, URINE Presumptive Positive(A) Negative 06/12/2025 7:15 AM CDT [facility] OXYCODONE QUAL, URINE Negative Negative 06/12/2025 7:15 AM CDT [facility] METHADONE QUAL, URINE Negative Negative 06/12/2025 7:15 AM CDT [facility] FENTANYL QUAL, URINE Presumptive Positive(A) Negative 06/12/2025 7:15 AM CDT [facility] CREATININE, URINE 19.2(L) 40.0 - 278.0 mg/dL 06/12/2025 7:15 AM CDT [facility] Comment:Reference Range vari es with fluid intake and diet. Urine (Urine, indwelling (Orta) catheter) Collection / Unknown 06/12/2025 6:19 AM CDT 06/12/2025 6:25 AM CDT Narrative [facility] - 06/12/2025 7:15 AM CDT When Urine [...] Fentanyl Negative 5 ng/mL us Love Gonzalez NP URINE ORDERABLES Elsie solo Result [facility] CLIA # [id number] [facility] [address] * (ABNORMAL) URINALYSIS WITH REFLEX MICROSCOPIC (06/12/2025 6:19 AM CDT) COLOR UA Pale Yellow Pale to Dark Yellow 06/12/2025 6:36 AM T [facility] CLARITY UA Clear Clear 06/12/2025 6:36 AM T [facility] SPECIFIC GRAVITY UA 1.022 1.003 - 1.035 06/12/2025 6:36 AM T [facility] PH UA 6.5 5.0 - 8.0 06/12/2025 6:36 AM T [facility] LEUKOCYTE ESTERASE UA Negative Negative 06/12/2025 6:36 AM T [facility] NITRITE UA Negative Negative 06/12/2025 6:36 AM T [facility] PROTEIN UA 2+(A) Negative 06/12/2025 6:36 AM T [facility] GLUCOSE UA 4+(A) Negative 06/12/2025 6:36 AM CDT [facility] KETONES UA Negative Negative 06/12/2025 6:36 AM T [facility] UROBILINOGEN UA <2.0 <2.0 mg/dL 6:36 AM CDT [facility] BILIRUBIN UA Negative Negative 06/12/2025 6:36 AM CDT [facility] BLOOD UA 3+(A) Negative 06/12/2025 6:36 AM CDT [facility] WBC UA 3-5(A) 0 - 2 /hpf 06/12/2025 6:36 AM CDT [facility] RBC UA 26-50(A) 0 - 2 /hpf 06/12/2025 6:36 AM CDT [facility] BACTERIA UA Negative Negative /hpf 06/12/2025 6:36 AM CDT [facility] EPITHELIAL CELLS, URINE 0-5 0 - 5 /hpf 06/12/2025 6:36 AM CDT [facility] HYALINE CAST 6-10(A) None Seen, 0-2 /lpf 06/12/2025 6:36 AM CDT [facility] Urine (Urine, indwelling (Orta) catheter) Collection / Unknown 06/12/2025 6:19 AM CDT 06/12/2025 6:24 AM CDT Love Gonzaelz DIRECTOR OF MARKETING COMMUNICATIONS URINE ORDERABLES Elsie solo Result [facility] # [id number] [address] [place] [id number] * (ABNORMAL) LACTIC ACID (06/12/2025 5:42 AM CDT) LACTIC ACID 11.5(HH) <=2.0 mmol/L 06/12/2025 6:35 AM CDT [facility] Blood Arterial / Unknown 5:42 AM CDT 06/12/2025 5:52 AM CDT Charles Magana MD CHEMISTRY ORDERABLES F inal Result Performing Organization Address City/[facility]/ZIP Co de Phone Number [facility] CLIA # [id number] [address] [address] * KETONES/BETA HYDROXYBUTYRATE (06/12/2025 5:42 AM CDT) BETA HYDROXYBUTYRATE 0.1 0.0 - 0.3 mmol/L 06/12/2025 9:51 AM CDT [facility] Blood Arterial / Unknown 5:42 AM CDT 06/12/2025 5:55 AM CDT us Zenaida Ray MD CHEMISTRY ORDERABLES Final Resul t Performing Organization Address [facility] Co de Phone Number [facility] CLIA # [id number] [facility] [address] * TROPONIN BASELINE, 5TH GEN (06/11/2025 11:25 PM CDT) [facility] TROPONIN T, BASELINE 5TH GEN 6 <=15 ng/L 06/11/2025 11:53 PM CDT [facility] Blood BLOOD SPECIMEN / Unknown Collection / Unknown 06/11/2025 11:25 PM CDT 06/11/2025 11:34 PM CDT Narrative [facility] - 06/11/2025 11:53 PM CDT Troponin Detectable but normal range. us Luis Ramos MD CHEMISTRY ORDERABLES Final Result Performing Organization Address City/[facility]/ZIP Co de Phone Number [facility] CLIA # [id number] [address] [place] [address] [phone] * (ABNORMAL) PROTIME-INR (06/11/2025 11:25 PM CDT) PROTIME 12.0(L) 12.1 - 14.3 Seconds 06/11/2025 11:48 PM CDT [facility] INR 0.9 0.9 - 1.1 06/11/2025 11:48 PM CDT [facility] Blood BLOOD SPECIMEN / Unknown Collection / Unknown 06/11/2025 11:25 PM CDT 06/11/2025 11:34 PM CDT Luis Ramos MD HEMATOLOGY ORDERABLES Elsie l Result Performing Organization Address City/[facility]/ZIP Co de Phone Number [facility] CLIA # [id number] [address] [place] [id number] * D-DIMER (06/11/2025 11:25 PM CDT) D-DIMER QUANT 0.21 <0.50 ug/mL FEU 06/11/2025 11:49 PM CDT [facility] Blood BLOOD SPECIMEN / Unknown Collection / Unknown 06/11/2025 11:25 PM CDT 06/11/2025 11:34 PM CDT [facility] - 06/11/2025 11:49 PM CDT D-Dimer assay cutoff value for exclusion of DVT and/or PE is <0.50 ug/mL FEU. As D-Dimer levels increase naturally with age, age stratification for patients over 50 is potentially more appropriate in determining whether a patient should undergo further evaluation for DVT and/or PE than a general cutoff of 0.50 ug/mL FEU. Clinical consideration is recommended. Age Stratified Cutoff Values: 50-60 years: 0.50-0.60 ug/mL FEU 61-70 years: 0.61-0.70 ug/mL FEU 71-80 years: 0.71-0.80 ug/mL FEU Luis Ramos MD HEMATOLOGY ORDERABLES Elsie l Result Performing Organization Address City/[facility]/ZIP Co de Phone Number [facility] CLIA # [id number] [address] [place] [phone] * BRAIN NATRIURETIC PEPTIDE, BNP OR PROBNP (06/11/2025 11:25 PM CDT) PROBNP, N TERMINAL 46 0 - 125 pg/mL 06/11/2025 11:53 PM CDT [facility] Comment: INTERPRETIVE COMMENT based on diagnosis: Diagnostic NT pro-BNP cutoffs for Heart Failure in the absence of renal failure is suggested for the following ranges <75 years: <125 pg/mL >=75 years: <450 pg/mL Exclusionary rule out cut-point for Acute Decompensated Heart Failure(ADHF) All ages: <300 pg/mL Diagnostic NT pro-BNP cutoffs for Acute Decompensated Heart Failure(ADHF) in the absence of renal failure is suggested for the following ages <50 years: > 450 pg/mL 50-75 years: > 900 pg/mL >75 years: >1800 pg/mL Blood BLOOD SPECIMEN / Unknown Collection / Unknown 06/11/2025 11:25 PM CDT 06/11/2025 11:34 PM CDT Luis Ramos MD CHEMISTRY ORDERABLES Final Result [facility] [id number] [address] [place] [id number] * Critical Care (06/11/2025 11:17 PM CDT) Narrative Luis Ramos MD - 06/11/2025 11:17 PM CDT Luis Ramos MD 06/16/2025 6:36 PM Critical Care Performed by: Luis Ramos MD Authorized by: Luis Ramos MD Critical care provider statement: Critical care time (minutes): 65 Critical care start time: 06/11/2025 11:45 PM Critical care end time: 06/12/2025 12:50 AM Critical care time was exclusive of: Separately billable procedures and treating other patients Critical care was necessary to treat or prevent imminent or life-threatening deterioration of the following conditions: Cardiac failure Critical care was time spent personally by me on the following activities: Examination of patient, evaluation of patient's response to treatment, ordering and review of laboratory studies, ordering and performing treatments and interventions, ordering and review of radiographic studies, ventilator management and re-evaluation of patient's condition I assumed direction of critical care for this patient from another provider in my specialty: yes Care discussed with: accepting provider at another facility Result [facility] Luis Ramos MD PROCEDURE/MINOR SURGICAL O RDERABLES Edited Result - Final * Intubation (06/11/2025 9:31 PM CDT) Narrative Luis Ramos MD - 06/11/2025 9:31 PM CDT Luis Ramos MD 06/16/2025 6:36 PM Intubation Date/Time: 06/11/2025 9:31 PM Performed by: Luis Ramos MD Authorized by: Luis Ramos MD Consent: Consent obtained: Verbal and emergent situation Risks discussed: Laryngeal injury, pneumothorax, hypoxia, aspiration, bleeding, brain injury and Alternatives discussed: No treatment Pelican protocol: Procedure explained and questions answered to patient or proxy's satisfaction: yes Relevant documents present and verified: yes Test results available: yes Imaging studies available: yes Required blood products, implants, devices, and special equipment available: yes Site/side marked: no Immediately prior to procedure, a time out was called: yes Patient identity confirmed: Hospital-assigned identification number Pre-procedure details: Indications: airway protection, altered consciousness, cardio/pulmonary arrest and respiratory distress Patient status: Altered mental status Look externally: large tongue Mouth opening - incisor distance: 3 or more finger widths Mallampati score: III Obstruction: edema Neck mobility: reduced Pharmacologic strategy: sedation Induction agents: Ketamine and propofol Paralytics: Succinylcholine Procedure details: CPR in progress: no Number of attempts: 2 Successful intubation attempt details: Intubation method: Oral Intubation technique: video assisted Laryngoscope blade: Mac 2 Bougie used: no Tube size (mm): 7.5 Tube type: Cuffed Tube visualized through cords: yes First unsuccessful intubation attempt details: Intubation method: Oral Intubation technique: Video assisted Laryngoscope blade: Hypercurved Bougie used: no Tube size (mm): 7.5 Tube type: Cuffed Ventilation between 1st and 2nd attempt: yes with mask Tube visualized through cords: no Placement assessment: ETT at teeth/gumline (cm): 22 Tube secured with: ETT ovalle Breath sounds: Equal Placement verification: colorimetric ETCO2, CXR verification and waveform ETCO2 CXR findings: Low Post-procedure details: Procedure completion: Tolerated with difficulty Complications: cardiac arrest and cardiac dysrhythmia Luis Ramos MD PROCEDURE/MINOR SURGICAL O RDERABLES Final Result from Last 3 Months Insurance MEDICAID [place] RX [place] PLANS (INTERNAL) [facility] Plans RX [employer] Commercial RX [place] Commercial Advance Directives For more information, please contact: [phone] Documents on File Type Date Recorded Patient Shipping Hand Expl anation Advance Directive Living Will 06/25/2025 4:06 PM Advance Directive Living Will Advance Directive POA 06/25/2025 4:05 PM Advance Directive POA * Full Code (Latest Code Status on File) Date Activated Date Inactivated Comments 06/14/2025 2:45 AM 06/27/2025 4:04 PM * Full Code Date Activated Date Inactivated Comments 06/13/2025 12:46 AM 06/14/2025 2:45 AM * Full Code Date Activated Date Inactivated Comments 06/12/2025 5:29 AM 06/13/2025 12:46 AM * Full Code Date Activated Date Inactivated Comments 06/12/2025 4:51 AM 06/12/2025 5:29 AM
--- NOTE | 2025-07-03 18:59 | XRR_ITS ---
PROCEDURE INFORMATION: Exam: XR Chest Exam date and time: 07/03/2025 7:00 PM Age: 65 years old Clinical indication: Pain; Chest pressure; Prior surgery; Surgery date: <1 month; Surgery type: Coronary stents; Additional info: Cp TECHNIQUE: Imaging protocol: Radiologic exam of the chest. Views: 1 view. COMPARISON: No relevant prior studies available. FINDINGS: Lungs: Bibasilar atelectasis versus minimal infiltrate. Pleural spaces: Unremarkable. No pleural effusion. No pneumothorax. Heart/Mediastinum: Cardiomegaly. Bones/joints: Unremarkable. XR/XR chest 1V portable [id number] IMPRESSION: 1. Cardiomegaly. 2. Bibasilar atelectasis versus minimal infiltrate.
[2025-07-03 19:16] VITALS: BP 116/73; PULSE 70; RESP 14; O2SAT 97
--- NOTE | 2025-07-03 19:22 | ED_ITS ---
HPI - Chest Pain 2 General: Chief Complaint: Chest Pain Stated Complaint: post heart attack clammy low o2 light headed.. Time Seen by Provider: 07/03/25 18:58 History of Present Illness: Patient is a 65-year-old male who experienced a major myocardial infarction 18 days ago requiring emergent transfer to [facility] in [place]. He initially presented to [facility] where he reportedly experienced cardiac arrest and was resuscitated before being transferred. Patient reports he was placed on full life support, including ECMO, and experienced cardiac arrest four times during his hospitalization. He was discharged 4 days ago (06/29/2025) but states he left without formal discharge instructions. He presents today with concerns of feeling clammy on and off, weird sensations around the base of my neck, and numbness in the toes of his left foot. Patient also has an open wound in the groin area where ECMO cannulation was performed. His reports attempting to clean the wound with warm water and applying antibiotic ointment but is uncertain about proper wound care. Patient reports feeling worse today compared to yesterday, with increased fatigue and excessive sleeping. He felt feverish earlier but denies current fever. Patient also reports history of a blood clot in his left leg with improving white blood cell count per previous providers. Related Data Previous Rx's ?Medication ?Instructions ?Recorded doxycycline hyclate 100 mg tablet 100 mg PO BID 10 day s #20 tabs 07/03/25 Allergies Allergy/AdvReac Type Severity Reaction Status Date / Time No Known Allergies Allergy Verified 07/03/25 18:41 Physical Exam 2 Const: COMMON NORMALS: no acute distress GENERAL APPEARANCE: cooperative; not ill appearing and not frail appearing HENMT: COMMON NORMALS: normocephalic, atraumatic and Normal external nose present HEAD & SCALP: normocephalic and atraumatic FACE & SINUS: normal facial exam and face symmetric NOSE: Normal external nose present Eye: COMMON NORMALS: Equal, round and reactive pupils present and EOMs intact bilaterally PUPIL: Yes Equal, round and reactive pupils present Neck/C-Spine: GENERAL: Yes trachea midline Chest: CHEST: Yes Symmetrical chest wall rise Resp: COMMON NORMALS: normal respiratory effort, No retractions, No use of accessory muscles and clear to auscultation bilaterally AUSCULTATION: clear to auscultation bilaterally Cardio: COMMON NORMALS: regular rate and regular rhythm RATE: regular rate RHYTHM: regular rhythm GI: COMMON NORMALS: Normal to inspection, nondistended, normoactive bowel sounds present Extremity: COMMON NORMALS: no pedal edema Neuro: NOLAN COMA SCALE: document GCS findings [place] coma scale eye opening: Spontaneous Nolan coma scale verbal response: Orientated [place] coma scale motor response: Obey commands Nolan coma scale total score: 15 S ENSORY EXAM: Yes extremities (intact) Psych: COMMON NORMALS: speech normal SPEECH: Yes normal speech Skin: NARRATIVE SKIN EXAM: Exam the left lower extremity reveals a Wound to the left groin covered with a bandage. Proximal to this, there are 2 small open wounds with minimal redness granulation tissue present. Minimal drainage. No streaking. No significant tenderness. This is presumably where ECMO catheters were placed. Course 2 Vital Signs: Vital signs: Vital Signs Temperature 97.8 F 07/03/25 18:35 Pulse Rate 78 07/04/25 00:13 Respiratory Rate 16 07/04/25 00:13 Blood Pressure 123/59 07/04/25 00:13 Pulse Oximetry 97 07/04/25 00:13 Oxygen Delivery Me thod Room Air 07/03/25 18:35 MDM - Chest Pain Medical Decision Making 65-year-old male who is status post cardiac catheterization and stent placement at an outside facility. He had been on ECMO, and has wounds to that area as well. He left AMA. Seems to be recovering quite well. He felt a little more unwell today, so presented to the emergency department, as he had no outpatients scheduled follow up. His vitals were normal. His white blood cell count is 12 with no left shift. 56% neutrophils. Hemoglobin is 9.5. His potassium is 3.1 and is repleted. He has no chest pain. He is not short of breath. He is currently asymptomatic. His chest x-ray shows cardiomegaly with bibasilar atelectasis. Head CT shows some diffuse white matter change was no acute findings. He had been diagnosed with a potential DVT on the left during his previous hospitalization at the outside facility. He has no DVT on the left on ultrasound today. He continues to take his Eliquis, Plavix, etc. In fact he is on all appropriate medications for his condition. His groin wound does not look cellulitic or infected. It has re bandaged, with training as to how to care for the wound given by our nursing staff. He wishes to follow up with cardiology here as it is more convenient for him and his family. Case management has been asked to make him an appointment. He knows to return for any problems. Currently he is stable for discharge. Lab Data 07/03/25 19:15 07/03/25 19:15 Radiology Impressions Chest X-Ray 07/03/25 18:59 IMPRESSION: 1. Cardiomegaly. 2. Bibasilar atelectasis versus minimal infiltrate. Head CT 07/03/25 19:24 IMPRESSION: Moderate diffuse white matter disease likely reflecting chronic microvascular ischemic changes. Venous Duplex 07/03/25 19:24 IMPRESSION: No evidence of deep vein thrombosis. Laboratory Results WBC 12.14 10^3/uL (3.29-11.43) H 07/03/25 19:15 RBC 3.02 10^6/uL (3.85-5.65) L 07/03/25 19:15 Hgb 9.50 g/dL (11.27-16.99) L 07/03/25 19:15 Hct 28.2 % (37-53) L 07/03/25 19:15 MCV 93.4 fl (82-101) 07/03/25 19:15 MCH 31.5 pg (27-33) 07/03/25 19:15 MCHC 33.7 g/dL (30-55) 07/03/25 19:15 RDW 13.9 % (12.1-15.1) 07/03/25 19:15 Plt Count 511 10^3/cmm (157-399) H 07/03/25 19:15 MPV 9.1 fL (7.4-10.4) 07/03/25 19:15 Neut % (Auto) 56.4 % 07/03/25 19:15 Lymph % (Auto) 28.2 % 07/03/25 19:15 [place] % (Auto) 6.0 % 07/03/25 19:15 Eos % (Auto) 6.1 % 07/03/25 19:15 Baso % (Auto) 1.0 % 07/03/25 19:15 Neut # (Auto) 6.85 10^3/uL (1.8-7.7) 07/03/25 19:15 Lymph # (Auto) 3.4 10^3/uL (0.8-4.8) 07/03/25 19:15 [place] # (Auto) 0.7 10^3/uL (0.2-0.9) 07/03/25 19:15 Eos # (Auto) 0.7 10^3/uL (0.0-0.8) 07/03/25 19:15 Baso # (Auto) 0.1 10^3/uL (0.0-0.1) 07/03/25 19:15 Nucleated RBC % (auto) 0 % 07/03/25 19:15 Nucleated RBCs # 0.0 /100WBC 07/03/25 19:15 PT 12.50 SECONDS (12.1-14.9) 07/03/25 19:15 INR 0.87 (0.8-1.2) 07/03/25 19:15 APTT 26.9 SECONDS (23.9-36.7) 07/03/25 19:15 Sodium 136 mmol/L (136-145) 07/03/25 19:15 Potassium 3.1 mmol/L (3.5-5.1) L 07/03/25 19:15 Chloride 102 mmol/L (98-107) 07/03/25 19:15 Carbon Dioxide 21 mmol/L (22-29) L 07/03/25 19:15 Anion Gap 16.1 (5-19) 07/03/25 19:15 BUN 11 mg/dL (8-23) 07/03/25 19:15 Creatinine 0.6 mg/dL (0.7-1.2) L 07/03/25 19:15 GFR Calculation 135.6 mL/min (90-130) H 07/03/25 19:15 Glucose 151 mg/dL (65-115) H 07/03/25 19:15 Calculated Osmolality 284 mOsm/kg (285-295) L 07/03/25 19:15 Calcium 8.3 mg/dL (8.5-10.5) L 07/03/25 19:15 Total Bilirubin 0.2 mg/dL (0.15-1.2) 07/03/25 19:15 AST 17 U/L (0-40) 07/03/25 19:15 ALT 17 U/L (0-41) 07/03/25 19:15 Alkaline Phosphatase 183 U/L (40-130) H 07/03/25 19:15 Troponin T Baseline 63 ng/L (0-15) H 07/03/25 19:15 Troponin T 120 Minute 60.69 ng/L (0-15) H 07/03/25 21:07 Delta Troponin T -2.31 ABS# (0-10) L 07/03/25 21:07 NT-Pro-B Natriuret Pep 829 pg/mL (0-125) H 07/03/25 19:15 Total Protein 6.3 g/dL (6.6-8.7) L 07/03/25 19:15 Albumin 3.5 g/dL (3.5-5.2) 07/03/25 19:15 Globulin 2.8 g/dL (1.3-4.6) 07/03/25 19:15 All radiology interpretation(s) finalized by discharge Discharge Plan Discharge Patient Disposition: Home Clinical Impression: Dizziness Condition: Stable Prescriptions: New doxycycline hyclate 100 mg tablet 100 mg PO BID 10 Days Qty: 20 0RF Discharge Orders: Discharge ED (Routine); Ordered 07/03/25 Ordered By: Pablo Gillette Patient Instructions: Dizziness (ED), Opioid Safety, Pain Management, Patient Portal & Chiki Instructions Activity Restrictions/Additional Instructions: Stay hydrated. Return for chest discomfort, shortness of breath, worsening leg swelling, worsening dizziness, syncope or passing out, any other concerning symptoms. Case management will make you an appointment with cardiology. You should get a call from them this coming week. You are on all your appropriate medications. Please continue them. Add antibiotic for the incision. Print Language: Azeri Coding Level of Care Code ED Claim Manager for Chg Fwd Heart Score HEART Score Components History: Slightly Suspicous EKG: Normal Age: 45-64 yrs Risk Factors: >/=3 Risk Factors Troponin: Baseline Trop >45 ng/L HEART Score RESULT HEART Score: 5
--- NOTE | 2025-07-03 19:24 | CTR_ITS ---
PROCEDURE INFORMATION: Exam: CT Head Without Contrast Exam date and time: 07/03/2025 7:46 PM Age: 65 years old Clinical indication: C/O dizziness. Hospitalization three weeks ago involving coronary stenting and ecmo. ; Additional info: Dizzy TECHNIQUE: Imaging protocol: Computed tomography of the head without contrast. Radiation optimization: All CT scans at this facility use at least one of these dose optimization techniques: automated exposure control; mA and/or kV adjustment per patient size (includes targeted exams where dose is matched to clinical indication); or iterative reconstruction. COMPARISON: No relevant prior studies available. RADIATION DOSE METRICS: Total DLP (mGy-cm): 1123.75 FINDINGS: Brain: Moderate diffuse white matter disease likely reflecting chronic microvascular ischemic changes. Cerebral ventricles: No ventriculomegaly. Paranasal sinuses: Visualized sinuses are unremarkable. No fluid levels. Mastoid air cells: Visualized mastoid air cells are well aerated. Bones: Unremarkable. No acute fracture. Soft tissues: Unremarkable. CT/CT head wo con* [id number] IMPRESSION: Moderate diffuse white matter disease likely reflecting chronic microvascular ischemic changes.
--- NOTE | 2025-07-03 19:24 | USR_ITS ---
PROCEDURE INFORMATION: Exam: US Duplex Left Lower Extremity Veins, Limited Exam date and time: 07/03/2025 9:19 PM Age: 65 years old Clinical indication: Pain; Leg, upper and leg, lower; Prior surgery; Surgery date: <1 month; Surgery type: Patient states he recently had ecmo pump into the left groin; Additional info: Left leg pain numbness, HX of dvt TECHNIQUE: Imaging protocol: Real-time duplex ultrasound of the left extremity with 2-D cortés scale, color Doppler flow and spectral waveform analysis including responses to compression and other maneuvers (when performed) with image documentation. Limited exam focused on the left lower extremity veins. COMPARISON: No relevant prior studies available. FINDINGS: Left deep veins: Unremarkable. The common femoral, femoral, proximal profunda femoral and popliteal veins are patent without thrombus. Normal Doppler waveforms. Normal compressibility and/or augmentation response. Superficial veins: Greater saphenous vein at the saphenofemoral junction is patent without thrombus. Soft tissues: Unremarkable. US/CV venous duplex [facility] [id number] IMPRESSION: No evidence of deep vein thrombosis.
[2025-07-03 19:32] LABS: Hematocrit 28.2 % (37-53); Hemoglobin 9.50 g/dL (11.27-16.99); Mean Corpuscular HGB Conc 33.7 g/dL (30-55); Mean Corpuscular Hemoglobin 31.5 pg (27-33); Mean Corpuscular Volume 93.4 fl (82-101); Nucleated Red Blood Cells % 0 %; Platelet Count 511 10^3/cmm (157-399); Red Blood Count 3.02 10^6/uL (3.85-5.65); White Blood Count 12.14 10^3/uL (3.29-11.43)
[2025-07-03 19:38] LABS: INR 0.87 (0.8-1.2); Prothrombin Time 12.50 SECONDS (12.1-14.9)
[2025-07-03 19:39] LABS: Partial Thromboplastin Time 26.9 SECONDS (23.9-36.7)
[2025-07-03 19:47] LABS: Troponin(5th) Baseline 63 ng/L (0-15)
[2025-07-03 19:54] LABS: Alanine Aminotransferase 17 U/L (0-41); Albumin Level 3.5 g/dL (3.5-5.2); Alkaline Phosphatase 183 U/L (40-130); Anion Gap 16.1 (5-19); Aspartate Amino Transferase 17 U/L (0-40); Blood Urea Nitrogen 11 mg/dL (8-23); Calcium 8.3 mg/dL (8.5-10.5); Carbon Dioxide 21 mmol/L (22-29); Chloride 102 mmol/L (98-107); Creatinine Clr Calc Pharmacy 129.6553; Globulin 2.8 g/dL (1.3-4.6); Glucose 151 mg/dL (65-115); NT Pro B Type Natriuretic Pept 829 pg/mL (0-125); Osmolality Calculated 284 mOsm/kg (285-295); Potassium 3.1 mmol/L (3.5-5.1); Sodium 136 mmol/L (136-145); Total Protein 6.3 g/dL (6.6-8.7)
[2025-07-03 20:35] VITALS: BP 117/84; PULSE 63; RESP 16; O2SAT 94
[2025-07-03 21:30] LABS: Troponin 5 2HR 60.69 ng/L (0-15)
[2025-07-03 21:31] LABS: Troponin 5 2HR Delta -2.31 ABS# (0-10)
--- NOTE | 2025-07-03 22:07 | ECG_ITS ---
[facility] Date: 2025-07-03 Pat Name: Parmjit Youssef Department: Room: Gender: Male Processing Rep: : 1960 Requested By: Pablo Rubio Order Number: [id number] Terra MD: Lisandra Grande M.D. Measurements Intervals [place] Rate: 65 P: 75 ID: [id number] QRS: -11 QRSD: 98 T: -40 QT: 438 QTc: 456 Interpretive Statements SINUS RHYTHM NONSPECIFIC T-WAVE ABNORMALITY No previous ECG available for comparison Electronically Signed On 07-04-2025 20:15:35 SOAP BOILER by Lisandra Grande M.D. [email or web address]
--- NOTE | 2025-07-03 22:09 | ECG_ITS ---
[facility] Date: 2025-07-03 Pat Name: Parmjit Youssef Department: Room: Gender: Male Analytics Consultant: : 1960 Requested By: Pablo Rubio Order Number: [id number] Terra MD: Lisandra Grande M.D. Measurements Intervals [place] Rate: 69 P: 71 [place]: 161 QRS: -15 QRSD: 98 T: -38 QT: 449 QTc: 481 Interpretive Statements SINUS RHYTHM WITH OCCASIONAL ECTOPIC PREMATURE COMPLEXES NONSPECIFIC T-WAVE ABNORMALITY PROLONGED QT INTERVAL Compared to ECG 07/03/2025 22:07:43 Prolonged QT interval now present T-wave abnormality still present Electronically Signed On 07-04-2025 20:20:10 COMMERCIAL ACCOUNT MANAGER by Lisandra Grande M.D. [email or web address]
[2025-07-03 22:26] VITALS: BP 125/64; PULSE 57; RESP 16; O2SAT 94
[2025-07-04] MEDS: bacitracin ointment Pkt 1 EACH TOPICAL (00:02)
[2025-07-04 00:13] VITALS: BP 123/59; PULSE 78; RESP 16; O2SAT 97
--- NOTE | 2025-07-05 08:04 | DCPLANNER ---
messaged heart care for er f/u
== END 2025-07-04 00:06 | disposition home or self-care (01) ==
PROVIDERS: Emergency Provider Emergency Medicine
DX: R42 Dizziness and giddiness (principal)
CPT/HCPCS: 36415; 70450; 71045; 80053; 83880; 84484; 85025; 85610; 85730; 93005; 93971; 99283; J9999

== ENCOUNTER 2025-07-11 10:46 | Emergency (ER) | payer MEDICAID, SELFPAY ==
[2025-07-11 10:49] VITALS: BP 127/67; PULSE 80; TEMP 36.5; O2SAT 98
--- OUTSIDE RECORDS SUMMARY | 2025-07-11 10:52 | XMS_ITS | Clinical Summary ---
Author Organization [facility] Address [address] [address] Phone Care Team Providers Care Cargo Service Supervisor Name Role Phone Unavailable Primary Care Provider Unavailabl e Allergies No known active allergies Medications apixaban (ELIQUIS) 5 mg tablet Take 2 Tablets (10 mg) by mouth 2 times daily for 4 days, THEN take 1 Tablet (5 mg) by mouth 2 times daily. Continue taking until advised by PCP/cardiologi st to stop 76 Tablet 1 06/27/2025 1:30 PM MVA REACTOR OPERATOR HEAD 5 Active aspirin (SNOW CHEWABLE) 81 mg Tablet, Chewable Take 1 Tablet (81 mg) by mouth daily for 17 days. Take until 07/15/2025 only 17 Tablet 06/27/2025 1:30 PM MVA REACTOR OPERATOR HEAD 5 07/15/20 25 Active furosemide (LASIX) 40 mg tablet Take 1 Tablet (40 mg) by mouth daily. 30 Tablet 1 06/27/2025 1:30 PM MVA REACTOR OPERATOR HEAD 5 Active losartan (COZAAR) 25 mg tablet Take ONE-HALF Tablet (12.5 mg) by mouth daily. 30 Tablet 06/27/2025 1:30 PM MVA REACTOR OPERATOR HEAD 5 Active nitroglycerin (NITROSTAT) 0.4 mg Tablet, Sublingual Place 1 Tablet (0.4 mg) under tongue every 5 minutes as needed for Chest Pain (Not to exceed 3 doses, notify physician if chest pain not relieved, hold if systolic BP less than or equal to 90 mmHg). 25 Tablet 06/27/2025 1:30 PM MVA REACTOR OPERATOR HEAD Active rosuvastatin (CRESTOR) 20 mg tablet Take 1 Tablet (20 mg) by mouth daily at bedtime. 30 Tablet 1 06/27/2025 1:30 PM MVA REACTOR OPERATOR HEAD 5 Active spironolactone (ALDACTONE) 25 mg tablet Take ONE-HALF Tablet (12.5 mg) by mouth daily. 30 Tablet 06/27/2025 1:30 PM MVA REACTOR OPERATOR HEAD Active ticagrelor (BRILINTA) 90 mg Tablet Take 1 Tablet (90 mg) by mouth 2 times daily. 60 Tablet 1 06/27/2025 1:30 PM MVA REACTOR OPERATOR HEAD Active apixaban (ELIQUIS) 5 mg tablet Take [...] STL ABSTRACTION Provider, Abstract 06/22/2025 Patient Outreach [facility] [address] [place] [address] Desi Thrasher Referral ([id number]); Medication Assistance; Financial Assistance Program 06/17/2025 3:31 PM CDT - 06/17/2025 5:01 PM CDT Surgery [facility] Cardiovascular Operating Room [facility] [place] [address] Kim Penny MD EXTRACORPOREAL CIRCULATION MEMBRANE OXYGENATION REMOVAL 06/17/2025 3:02 PM CDT Anesthesia Event [facility] Cardiovascular Operating Room [address] [place] [address] Brian Rg MD Schmitt, Adriel, CHIEF RADIOLOGIC TECHNOLOGIST 06/16/2025 External Device Data STL ABSTRACTION Provider, Abstract 06/16/2025 External Device Data STL ABSTRACTION Provider, Abstract 06/15/2025 External Device Data STL ABSTRACTION Provider, Abstract 06/13/2025 8:55 AM CDT - 06/13/2025 9:55 AM CDT Surgery [facility] Cardiac [facility] Psychiatrist [address] [place] [address] Prince Farr MD Left heart cath 06/12/2025 5:00 AM CDT Ancillary Procedure [facility] Operating Room [address] [place] [address] 06/12/2025 4:15 AM CDT Anesthesia Event [facility] Cardiovascular Operating Room [address] [address] Chaz Hill MD AlbaughMonroe, CHIEF RADIOLOGIC TECHNOLOGIST 06/12/2025 4:15 AM CDT - 06/12/2025 8:58 AM CDT Surgery [facility] Cardiovascular Operating Room [address] [address] Kim Penny MD CASE CANCELLED 06/12/2025 2:00 AM CDT - 06/12/2025 3:00 AM CDT Surgery [facility] Cardiac [facility] [address] [place] [address] Prince Farr MD Left heart cath 06/12/2025 1:52 AM CDT - 06/27/2025 1:59 PM MVA REACTOR OPERATOR HEAD Hospital Encounter [facility] 4A Cardiac [address] [place] [address] Doreen Ambrocio MD Sethi, Prince, MD Pendurthi, MD Cory Styles, MD Alfonso Estevez, MD John Mai Mariam, MD Sohail, MD Trisha Cano, MD Issac ST elevation myocardial infarction involving right coronary artery (CMS/HCC) Discharge Disposition: Left Against Medical Advice 06/12/2025 - 06/12/2025 11:59 PM CDT Hospital Encounter [facility] [address] [place] [id number] Ambulance, [facility] Discharge Disposition: [facility] 06/11/2025 11:18 PM CDT - 06/12/2025 1:05 AM CDT [facility] Emergency Medicine [address] [place] [address] Luis Ramos MD Acute myocardial infarction involving other coronary artery of inferior wall, unspecified WV type (CMS/HCC) (Primary Dx) Discharge Disposition: [facility] 06/11/2025 Travel from Last 3 Months Social [...] worry about transportation for future doctor visits, scrap picker medication, etc.? No 2024 Housing Stability [...] Comments Blood Pressure 110/61 06/27/2025 11:45 AM MVA REACTOR OPERATOR HEAD Pulse 75 06/27/2025 11:45 AM MVA REACTOR OPERATOR HEAD Temperature 36.8 C (98.2 F) 06/27/2025 11:45 AM MVA REACTOR OPERATOR HEAD Respiratory Rate 24 06/27/2025 11:45 AM MVA REACTOR OPERATOR HEAD Oxygen Saturation 97% 06/27/2025 11:45 AM MVA REACTOR OPERATOR HEAD Inhaled Oxygen Concentration - - Weight 86.9 kg (191 lb 9.3 oz) 06/27/2025 3:50 A M MVA REACTOR OPERATOR HEAD Height 172.7 cm (5' 8 ) 06/26/2025 3:21 PM CDT Body Mass Index 29.13 06/26/2025 3:21 PM CDT Plan of Treatment Upcoming Encounters Date Type Department Care Team (Late st Contact Info) Description 10/21/2025 2:40 PM MVA REACTOR OPERATOR HEAD Office Visit [facility] [address] [facility] [address] [place] [address] Tri Price MD [address] [facility] [address] [place] [address] Madalyn Ernandez PA-C [address] [facility] [address] [place] [address] Health Maintenance Due Date Last [...] 06/14/2026 06/14/2025 Medical Devices Implanted Type Area Electrician Third Device Identifier Shelf Expiration Date Model / Serial / Lot Clip Ligating Horizon Med Ti [id number] - [facility] - [id number] Implanted:Qty: 1 on 06/17/2025 by Kim Penny MD at [facility] Clip N/A: Chest TELEFLEX- WECK CLOSURE SYS [id number] 12/25/2029 [id number] / / [id number] Clip Ligating Horizon Red [id number] - [facility] - [id number] Implanted:Qty: 1 on 06/17/2025 by Kim Penny MD at [facility] Clip N/A: Chest TELE[employer]LEX INC [id number] 02/21/2030 [id number] / / [id number] [place] Ptfe Thick 1.6mmx2.5x10.2 cm [id number] - [id number] Implanted:Qty: 1 on 06/17/2025 by Kim Penny MD at [facility] Graft N/A: Chest BARD SADIE VASC [id number] 08/22/2028 [id number] 8 / / [id number] Agent Hemostat Surgicel 2x3in 1952s - [id number] Implanted:Qty: 1 on 06/17/2025 by Kim Penny MD at [facility] Hemostatic N/A: Chest J[employer]J- [employer] [id number] 12/23/2029 1953S / / [id number] Agent Hemostat Surgicel 2x3in 1952s - [id number] Implanted:Qty: 1 on 06/17/2025 by Kim Penny MD at [facility] Hemostatic N/A: Chest J&J- [employer] [id number] 12/23/2029 195S / / [id number] Agent Hemostat Surgicel 2x3in 1952s - [id number] Implanted:Qty: 1 on 06/17/2025 by Kim Penny MD at [facility] Hemostatic N/A: Chest J&J- [employer] [id number] 12/23/20291952S / / [id number] Agent Hemostat Surgicel 2x3in 1952s - [id number] Implanted:Qty: 1 on 06/17/2025 by Kim Penny MD at [facility] Hemostatic N/A: Chest J[employer]J- [employer] [id number] 12/23/20291952S / / [id number] Agent Hemostat Surgicel 2x3in 1952s - [id number] Implanted:Qty: 1 on 06/17/2025 by Kim Penny MD at [facility] Hemostatic N/A: Chest J&J- [employer] [id number] 12/23/20291952S / / [id number] Agent Hemostat Surgicel 2x3in 1952s - [id number] Implanted:Qty: 1 on 06/17/2025 by Kim Penny MD at [facility] Hemostatic N/A: Chest J&J- [employer] [id number] 12/23/20291952S / / [id number] Stent Jai [place] Jluis 3.0x15mm Rx [id number] - [id number] Implanted:Qty: 1 on 06/12/2025 by Prince Farr MD at [facility] Stent Right: Coronary [employer] [id number] 03/03/2028 [id number] / / [id number] Stent [place] Jluis 3.0x18mm Rx [id number] - [id number] Implanted:Qty: 1 on 06/12/2025 by Prince Farr MD at [facility] Stent Right: Coronary [employer] [id number] 02/05/2028 [id number] [id number] / / [id number] Procedures Procedure Name Priority Date/Time Associated Diagnosis Comments TELEMETRY REPORT 06/28/2025 3:38 AM MVA REACTOR OPERATOR HEAD ECHO LIMITED W CONTRAST Stat 06/27/2025 10:50 AM MVA REACTOR OPERATOR HEAD POC GLUCOSE Routine 06/27/2025 7:09 AM MVA REACTOR OPERATOR HEAD POC GLUCOSE Routine 06/27/2025 4:58 AM MVA REACTOR OPERATOR HEAD EKG 12-LEAD Routine 06/27/2025 4:39 AM MVA REACTOR OPERATOR HEAD CBC WITH DIFFERENTIAL Routine 06/27/2025 1:51 AM [...] ARM BILATERAL Routine 06/24/2025 11:03 AM CDT COTTON CLEANER EVALUATION Routine 06/24/2025 8:39 AM CDT POC [...] WITH DIFFERENTIAL Routine 06/16/2025 3:09 AM CDT POC GLUCOSE Routine 06/16/2025 12:35 AM CDT PTT Routine 06/16/2025 12:35 AM [...] Results * TELEMETRY REPORT (06/28/2025 3:38 AM [facility]) Only the most recent of2 resultswithin the time period is included. us Provider Scanning ECG ORDERABLES Final Result * ECHO LIMITED W CONTRAST (06/27/2025 10:50 AM MVA REACTOR OPERATOR HEAD) EJECTION FRACTION 44 INTERFACE SYSTEM 06/27/2025 9:13 AM MVA REACTOR OPERATOR HEAD Narrative INTERFACE SYSTEM - 06/27/2025 11:25 AM [facility] Cardiovascular Services Echocardiography Laboratory [address] [place] [address] Limited Transthoracic Echocardiography Patient: Mikael Study ID: ECHO JUAN Yu Susan Parnell Gender: M : 1960 Age: 65 Room: [facility] Study 06/27/2025 Pt Inpatient Date: Status: Study 09:13:06 AM CSN #: [id number] Time: Ordering:Anyi López Combined Rail Operator: GREG Indications and History: WV/ACS; Suspected complication of WV; Other- see comments. VT/VF. Pt discharge today [...] (H) gina values outside specified reference range. [facility] Echo Labs are accredited with the Intersocietal Accreditation Commission - Echocardiography. Prepared and Electronically Authenticated Laurent Feng Confirmed 06/27/2025 11:25 Procedure Note Laurent Feng MD - 06/27/2025 [facility] Cardiovascular Services Echocardiography Laboratory [address] [place] [address] Limited Transthoracic Echocardiography Patient: Mikael Study ID: ECHO LIMITED WD Rom Gender: M : 1960 Age: 65 Room: [facility] 06/27/2025 Pt Inpatient Date: Status: Study 09:13:06 AM CSN #: [id number] Time: Ordering:Anyi López Combined Rail Operator: GREG Indications and History: WV/ACS; Suspected complication of WV; Other-see comments. VT/VF. Pt discharge today needs [...] date: 06/27/2025. Study time: 09:13 AM. Location: [facility]. Cardiac Anatomy: LEFT VENTRICLE: The cavity size [...] (H) gina values outside specified reference range. [facility] Echo Labs are accredited with theIntersocietal Accreditation Commission - Echocardiography. Prepared and Electronically Authenticated Laurent Feng Confirmed 06/27/2025 11:25 us Anyi López [facility] US ORDERABLES Final Resu lt INTERFACE SYSTEM Refer to clinic/hospital department * (ABNORMAL) POC GLUCOSE (06/27/2025 7:09 AM MVA REACTOR OPERATOR HEAD) Only the most recent of126 resultswithin the time period is included. GLUCOSE POC 143(H) 74 - 99 mg/dL 06/27/2025 7:09 AM [facility] SPECIMEN SOURCE, GLUCOSE POC Capillary 06/27/2025 7:09 AM [facility] Blood, whole 06/27/2025 7:09 AM MVA REACTOR OPERATOR HEAD 06/27/2025 7:24 AM MVA REACTOR OPERATOR HEAD us Issac Rico MD POINT OF CARE TESTING Final Resu lt [facility] CLIA # [id number] [address] [address] * EKG 12-LEAD (06/27/2025 4:39 AM MVA REACTOR OPERATOR HEAD) Only the most recent of19 resultswithin the time period is included. 06/27/2025 4:39 AM MVA REACTOR OPERATOR HEAD Narrative INTERFACE SYSTEM - 06/27/2025 12:28 PM MVA REACTOR OPERATOR HEAD [address] [address] Test Date: 2025-06-27 Pat Name: ROM YOUSSEF Department: 12 Room: [address] [place] [address] Gender: Male Lead Net Software Developer: [email or web address] : 1960 Requested By: Order Number: [id number] Reading MD: Smitha Vora Measurements Intervals [place] Rate: 68 P: 75 NV: 154 QRS: -27 QRSD: 88 T: 89 QT: 510 QTc: 542 Interpretive Statements Normal sinus rhythm ST & T wave abnormality, consider anterolateral ischemia Prolonged QT Abnormal ECG Electronically Signed On 06-27-2025 12:28:08 MVA REACTOR OPERATOR HEAD by Smitha Vora Procedure Note Provider, Historical - 06/27/[address] [address] Test Date: 2025-06-27 Pat Name: ROM YOUSSEF Department: 12 Room: [address] [place] [address] Gender: Male Lead Net Software Developer: [email or web address] : 1960 Requested By: Order Number: [id number] Reading : Smitha Vora Measurements Intervals [place] Rate: 68 P: 75 NV: 154 QRS: -27 QRSD: 88 T: 89 QT: 510 QTc: 542 Interpretive Statements Normal sinus rhythm ST & T wave abnormality, consider anterolateral ischemia Prolonged QT Abnormal ECG Electronically Signed On 06-27-2025 12:28:08 MVA REACTOR OPERATOR HEAD by Smitha Vora us Ebony Lopez MD ECG ORDERABLES Final Result INTERFACE SYSTEM Refer to clinic/hospital department * (ABNORMAL) CBC WITH DIFFERENTIAL (06/27/2025 1:51 AM CDT) Only the most recent of19 resultswithin the time period is included. [facility] WBC 13.2(H) 4.8 - 10.8 K/uL 06/27/2025 2:43 AM [facility] RBC 3.18(L) 4.60 - 6.20 M/uL 06/27/2025 2:43 AM [facility] HEMOGLOBIN 9.8(L) 14.0 - 18.0 g/dL 06/27/2025 2:43 AM [facility] HEMATOCRIT 30.2(L) 41.0 - 53.0 % 06/27/2025 2:43 AM [facility] MCV 95.0 84.0 - 103.0 fL 06/27/2025 2:43 AM [facility] MCH 30.8 27.0 - 34.0 pg 06/27/2025 2:43 AM [facility] MCHC 32.5 30.0 - 35.0 g/dL 06/27/2025 2:43 AM [facility] PLATELETS 608(H) 140 - 440 K/uL 06/27/2025 2:43 AM [facility] MPV 10.3 8.9 - 12.8 fL 06/27/2025 2:43 AM [facility] RDW 12.5 11.0 - 14.5 % 06/27/2025 2:43 AM [facility] RDW-STDEV 43.4 37.0 - 54.0 fL 06/27/2025 2:43 AM [facility] [employer] [facility] NEUTROPHILS 68 42 - 75 % 06/27/2025 2:43 AM [facility] LYMPHOCYTES 17(L) 24 - 44 % 06/27/2025 2:43 AM [facility] MONOCYTES 8 2 - 10 % 06/27/2025 2:43 AM [facility] EOSINOPHILS 4 0 - 7 % 06/27/2025 2:43 AM [facility] BASOPHILS 1 0 - 1 % 06/27/2025 2:43 AM [facility] IMMATURE GRANULOCYTES 2 0 - 2 % 06/27/2025 2:43 AM [facility] NEUTROPHIL ABSOLUTE 8.99(H) 2.00 - 8.00 K/uL 06/27/2025 2:43 AM [facility] LYMPHOCYTE ABSOLUTE 2.19 1.20 - 4.00 K/uL 06/27/2025 2:43 AM [facility] MONOCYTE ABSOLUTE 1.01(H) 0.10 - 0.60 K/uL 06/27/2025 2:43 AM [facility] EOSINOPHIL ABSOLUTE 0.57 0.00 - 0.70 K/uL 06/27/2025 2:43 AM [facility] BASOPHILS ABSOLUTE 0.13 0.00 - 0.20 K/uL 06/27/2025 2:43 AM [facility] IMMATURE GRANULOCYTES ABSOLUTE 0.29(H) 0.00 - 0.10 K/uL 06/27/2025 2:43 AM [facility] SMEAR REVIEWED: NA - Not Applicable 06/27/2025 2:43 AM [facility] Blood Venipuncture / Unknown 06/27/2025 1:51 AM CDT 06/27/2025 2:35 AM MVA REACTOR OPERATOR HEAD us Issac Rico MD HEMATOLOGY ORDERABLES Final Resu lt [facility] CLIA # [id number] [facility] [address] [address] [place] [address] * (ABNORMAL) BASIC METABOLIC PANEL (06/27/2025 1:51 AM CDT) Only the most recent of8 resultswithin the time period is included. SODIUM 135(L) 136 - 145 mmol/L 06/27/2025 3:05 AM [facility] POTASSIUM 3.8 3.5 - 5.1 mmol/L 06/27/2025 3:05 AM [facility] CHLORIDE 100 98 - 107 mmol/L 06/27/2025 3:05 AM [facility] CO2 23 22 - 29 mmol/L 06/27/2025 3:05 AM [facility] CALCIUM 8.6(L) 8.8 - 10.2 mg/dL 06/27/2025 3:05 AM [facility] BUN 24(H) 8 - 23 mg/dL 06/27/2025 3:05 AM [facility] CREATININE 0.61(L) 0.67 - 1.17 mg/dL 06/27/2025 3:05 AM [facility] GLUCOSE 161(H) 74 - 99 mg/dL 06/27/2025 3:05 AM [facility] GFR >60 >=60 mL/min/1. 73 sq meter 06/27/2025 3:05 AM [facility] Comment:eGFR calculated with 2020 CKD-EPI equation. Vegetarian diet, extremely high or low muscle mass, and may affect results. Cystatin C with Glomerular Filtration Rate is a suitable alternative for these patients. ANION GAP 12 9 - 20 mmol/L 06/27/2025 3:05 AM [facility] Blood Venipuncture / Unknown 06/27/2025 1:51 AM CDT 06/27/2025 2:33 AM MVA REACTOR OPERATOR HEAD us Issac Rico MD CHEMISTRY ORDERABLES Final Resul t [facility] CLIA # [id number] [facility] [address] [place] [address] * (ABNORMAL) PROCALCITONIN (06/26/2025 10:36 AM CDT) PROCALCITONIN 0.10(H) <=0.08 ng/mL 06/26/2025 12:02 PM CDT [facility] Blood Venipuncture / Unknown 06/26/2025 10:36 AM CDT 06/26/2025 11:18 AM CDT Narrative [facility] [employer] [facility] - 06/26/2025 12:02 PM CDT The [...] Rico MD CHEMISTRY ORDERABLES Final Resul t [facility] [employer] [facility] CLIA # [id number] [address] [facility] [place] [address] * CTA CHEST W AND/OR WO CONTRAST [...] See Interpretation IU/mL 06/24/2025 4:03 PM CDT [facility] LABORATORY [facility] Blood Venipuncture / Unknown 06/24/2025 3:35 PM CDT 06/24/2025 3:[address] [facility] - 06/24/2025 4:03 PM CDT Therapeutic Range: PT/DVT Heparin Protocol 0.3 - 0.7 IU/ml Cardiac Heparin Protocol 0.3 - 0.6 IU/ml The reference range for this test is specific to the anticoagulant and is not appropriate for monitoring patients on a DOAC protocol. Issac Rico MD HEMATOLOGY ORDERABLES Final Resu lt Performing Organization Address City/[facility]/ZIP Co de Phone Number [facility] CLIA # [id number] [address] [place], [place] [address] * BLOOD CULTURE (06/24/2025 3:35 PM CDT) Only the most recent of4 resultswithin the time period is included. BLOOD CULTURE No growth 06/29/2025 4:41 PM MVA REACTOR OPERATOR HEAD [facility] Blood (Peripheral) Venipuncture / Unknown 06/24/2025 3:35 PM CDT 06/24/2025 3:[address] [facility] - 06/29/2025 4:41 PM MVA REACTOR OPERATOR HEAD Specimen processed with suboptimal blood volume collected. us Issac Rico MD MICROBIOLOGY - GENERAL ORDERABLE S Final Result Performing Organization Address City/[facility]/ZIP Co de Phone Number [facility] CLIA # [id number] [address] [place] [address] * XR VIDEO SWALLOW W SPEECH (06/24/2025 [...] AM CDT Narrative 06/24/2025 3:34 PM CDT [facility] Cardiovascular Services Noninvasive Vascular Laboratory [facility] [place] [address] Noninvasive Vascular Lab Venous Exam Complete Lower Extremity Duplex Patient: Rom Youssef Study ID: US VENOUS DOPPLE Gender: M : 1960 Age: 65 Room: Height: Weight: BSA: Pt status: Inpatient Study Date: 06/24/2025 Study Time: 10:30:05 AM BSA: Ordering: Issac Rico Interpreting:Prince Yordan Combined Rail Operator: EDIE Indications: LEG PAIN. Summary Impression: [...] MANUEL - 06/24/25 - 10:51AM - DVT [facility] Vascular Lab is accredited with the Intersocietal Commission for the Accreditation of Vascular Laboratories (ICAVL) Prepared and Electronically Authenticated Prince Yordan Confirmed 06/24/2025 15:34 Procedure Note Prince Farr MD - 06/24/2025 [facility] Cardiovascular Services Noninvasive Vascular Laboratory [address] [place] [address] Noninvasive Vascular Lab Venous Exam Complete Lower Extremity Duplex Patient: Rom Youssef Study ID: US VENOUS DOPPLE Gender: M : 1960 Age: 65 Room: Height: Weight: BSA: Pt status: Inpatient Study Date: 06/24/2025 Study Time: 10:30:05 AM BSA: Ordering: Issac Rico Interpreting:Prince Yordan Combined Rail Operator: EDIE Indications: LEG PAIN. Summary Impression: [...] TYLER Kathleen 06/24/25 - 10:51AM - DVT [facility] Vascular Lab is accredited with theIntersocietal Commission for the Accreditation of Vascular Laboratories (ICAVL) Prepared and Electronically Authenticated Prince Yordan Confirmed 06/24/2025 15:34 us Issac Rico MD US ORDERABLES Final Result * US DOPPLER VENOUS ARM BILATERAL (06/24/2025 11:03 AM CDT) Anatomical Region Laterality Modality Upper Extremity Ultrasound 06/24/2025 10:1 1 AM CDT Narrative 06/24/2025 3:26 PM CDT [facility] Cardiovascular Services Noninvasive Vascular Laboratory [address] [place] [address] Noninvasive Vascular Lab Venous Exam Complete Upper Extremity Duplex Patient: LisbetRom arriola Study ID: US DOPPLER VENOU Gender: M : 1960 Age: 65 Room: Height: Weight: BSA: Pt status: Inpatient Study Date: 06/24/2025 Study Time: 10:11:59 AM BSA: Ordering: Issac Rico Interpreting:Prince Yordan Combined Rail Operator: EDIE Indications: Dvt. Summary Impression: 1. [...] - 06/24/25 - 10:51 AM - SVT [facility] Vascular Lab is accredited with the Intersocietal Commission for the Accreditation of Vascular Laboratories (ICAVL) Prepared and Electronically Authenticated Prince Yordan Confirmed 06/24/2025 15:26 Procedure Note Prince Farr MD - 06/24/2025 [facility] Cardiovascular Services Noninvasive Vascular Laboratory [address] [place] [address] Noninvasive Vascular Lab Venous Exam Complete Upper Extremity Duplex Patient: Rom Youssef Study ID: US DOPPLER VENOU Gender: M : 1960 Age: 65 Room: Height: Weight: BSA: Pt status: Inpatient Study Date: 06/24/2025 Study Time: 10:11:59 AM BSA: Ordering: Issac Rico Interpreting:Prince Yordan Combined Rail Operator: EDIE Indications: Dvt. Summary Impression: 1. [...] - 06/24/25 - 10:51 AM - SVT [facility] Vascular Lab is accredited with the[facility] Commission for the Accreditation of Vascular Laboratories (ICAVL) Prepared and Electronically Authenticated Prince Yordan Confirmed 06/24/2025 15:26 Issac Rico MD US ORDERABLES Final Result * PERIPHERAL BLOOD SMEAR PATHOLOGY INTERP (06/24/2025 3:38 AM CDT) Pathologist [facility] PERIPHERAL BLOOD SMEAR INTERP See Interpretation Below 06/25/2025 3:29 PM CDT [facility] Comment: The red cells are normocytic and [...] Robinson Brannon MD 06/25/2025 3:29 PM CDT [facility] Blood Venipuncture / Unknown 06/24/2025 3:38 AM CDT 06/24/2025 4:15 AM CDT Issac Rico MD HEMATOLOGY ORDERABLES Final Resu lt [facility] CLIA # [id number] [address] [address] [place], [place] [id number] * PHOSPHORUS (06/23/2025 2:49 AM CDT) Only the most recent of13 resultswithin the time period is included. Pathologist [facility] PHOSPHORUS 4.0 2.5 - 4.5 mg/dL 06/23/2025 3:39 AM CDT [facility] Blood Venipuncture / Unknown 06/23/2025 2:49 AM CDT 06/23/2025 2:55 AM CDT Love Borjas Gonzalez MANAGER OF ORGANIZATIONAL DEVELOPMENT CHEMISTRY ORDERABLES Final Result Performing Organization Address [facility] Co de Phone Number [facility] CLIA # [id number] [address] [address] [place] [address] * MAGNESIUM LEVEL (06/23/2025 2:49 AM CDT) Only the most recent of16 resultswithin the time period is included. MAGNESIUM 2.3 1.6 - 2.4 mg/dL 06/23/2025 3:39 AM CDT [facility] Blood Venipuncture / Unknown 06/23/2025 2:49 AM CDT 06/23/2025 2:55 AM CDT Love Gonzalez MANAGER OF ORGANIZATIONAL DEVELOPMENT CHEMISTRY ORDERABLES Final Result Performing Organization Address [facility] Co de Phone Number [facility] CLIA # [id number] [address] [address] * (ABNORMAL) COMPREHENSIVE METABOLIC PANEL (06/23/2025 2:49 AM CDT) Only the most recent of14 resultswithin the time period is included. SODIUM 140 136 - 145 mmol/L 06/23/2025 3:39 AM CDT [facility] [employer] [facility] POTASSIUM 3.6 3.5 - 5.1 mmol/L 06/23/2025 3:39 AM CDT [facility] [employer] [facility] CHLORIDE 104 98 - 107 mmol/L 06/23/2025 3:39 AM CDT [facility] CO2 23 22 - 29 mmol/L 06/23/2025 3:39 AM CDT [facility] [employer] [facility] CALCIUM 8.8 8.8 - 10.2 mg/dL 06/23/2025 3:39 AM T [facility] BUN 28(H) 8 - 23 mg/dL 06/23/2025 3:39 AM [facility] CREATININE 0.76 0.67 - 1.17 mg/dL 06/23/2025 3:39 AM [facility] GLUCOSE 195(H) 74 - 99 mg/dL 06/23/2025 3:39 AM [facility] TOTAL PROTEIN 6.9 6.4 - 8.3 g/dL 06/23/2025 3:39 AM [facility] ALBUMIN 2.9(L) 3.5 - 5.2 g/dL 06/23/2025 3:39 AM [facility] BILIRUBIN TOTAL 0.7 0.0 - 1.0 mg/dL 06/23/2025 3:39 AM [facility] ALKALINE PHOSPHATASE 153(H) 40 - 129 U/L 06/23/2025 3:39 AM [facility] AST 24 10 - 50 U/L 06/23/2025 3:39 AM [facility] ALT 23 <=50 U/L 06/23/2025 3:39 AM [facility] GFR >60 >=60 mL/min/1.7 3 sq meter 06/23/2025 3:39 AM [facility] Comment:eGFR calculated with 2020 CKD-EPI equation. Vegetarian diet, extremely high or low muscle mass, and may affect results. Cystatin C with Glomerular Filtration Rate is a suitable alternative for these patients. ANION GAP 13 9 - 20 mmol/L 06/23/2025 3:39 AM [facility] Blood Venipuncture / Unknown 06/23/2025 2:49 AM CDT 06/23/2025 2:55 AM CDT Love Gonzalez NP CHEMISTRY ORDERABLES Final Result [facility] CLIA # [id number] [address] [place] [address] * (ABNORMAL) PTT (06/22/2025 6:33 PM CDT) Only the most recent of21 resultswithin the time period is included. PTT 23.3(L) 24.8 - 37.2 seconds 06/22/2025 7:11 PM CDT [facility] Blood Venipuncture / Unknown 06/22/2025 6:33 PM CDT 06/22/2025 6:41 PM CDT Narrative [facility] - 06/22/2025 7:11 PM CDT Therapeutic Range: Hi-level PE/DVT heparin protocol 80.1 - 95.0 sec Lo-level PE/DVT heparin protocol 70.1 - 85.0 sec Cardiac Heparin Protocol 70.1 - 100.0 sec us Prince Yordan SANTANA HEMATOLOGY ORDERABLES Final Resu lt [facility] CLIA # [id number] [address] [address] * XR ABDOMEN FOR FEEDING TUBE 1 [...] FOR STUDY: Line Placement, Comment: IABP and Polaris Chelsie DIAGNOSIS: ST elevation myocardial infarction (STEMI), [...] FOR STUDY: Line Placement, Comment: IABP and Polaris Chelsie DIAGNOSIS: ST elevation myocardial infarction (STEMI), [...] * (ABNORMAL) TSH (06/21/2025 3:02 AM CDT) [facility] TSH 4.27(H) 0.27 - 4.20 uIU/mL 06/21/2025 11:00 AM CDT [facility] Blood Venipuncture / Unknown 06/21/2025 3:02 AM CDT 06/21/2025 3:18 AM CDT Anyi López GARNETT FEEDER CHEMISTRY ORDERABLES Final Result [facility] CLIA # [id number] [address] [place] [address] [place] [address] * POC ACTIVATED CLOTTING TIME (06/19/2025 10:49 AM CDT) Only the most recent of7 resultswithin the time period is included. [facility] ACTIVATED CLOTTING TIME POC 135 116 - 140 sec 06/19/2025 10:49 AM CDT [facility] Blood 06/19/2025 10:4 9 AM CDT 06/19/2025 6:53 PM CDT Zachary Hamilton MD POINT OF CARE TESTING Final Res ult Performing Organization Address [facility]/ZIP Co de Phone Number [facility] CLIA # [id number] [address] [address] [place], [place] [address] * (ABNORMAL) POTASSIUM LEVEL (06/18/2025 5:02 PM CDT) Only the most recent of3 resultswithin the time period is included. [facility] POTASSIUM 3.4(L) 3.5 - 5.1 mmol/L 06/18/2025 5:38 PM CDT [facility] Blood Arterial / Unknown 5:02 PM CDT 06/18/2025 5:14 PM CDT Zachary Hamilton MD CHEMISTRY ORDERABLES Final Resu lt Performing Organization Address [facility] Co de Phone Number [facility] CLIA # [id number] [address] [address] [place] [address] * SPUTUM CULTURE WITH GRAM STAIN (06/18/2025 12:11 PM CDT) Only the most recent of2 resultswithin the time period is included. Pathologist [facility] CULTURE No pathogens isolated. Normal respiratory alon reduced. 06/20/2025 9:39 AM CDT [facility] GRAM STAIN Smear contains </=10 squamous epithelial cells per low power field 06/20/2025 9:39 AM CDT [facility] GRAM STAIN <25 PMN WBC/LPF 9:39 AM CDT [facility] GRAM STAIN No organisms observed 06/20/2025 9:39 AM CDT [facility] Sputum SPUTUM SPECIMEN OBTAINED BY ASPIRATION / Unknown Collection / Unknown 06/18/2025 12:11 PM CDT 06/18/2025 12:17 PM CDT Zachary Hamilton MD MICROBIOLOGY - GENERAL ORDERABL ES Final Result Performing Organization Address [facility]/ZIP Co de Phone Number [facility] CLIA # [id number] [address] [address] [place] [address] * POC LACTIC ACID (06/18/2025 7:15 AM CDT) Only the most recent of39 resultswithin the time period is included. LACTIC ACID POC 0.8 <=2.0 mmol/L 06/18/2025 7:15 AM CDT [facility] SPECIMEN SOURCE, GASES POC Arterial 06/18/2025 7:15 AM CDT [facility] PUN SITE POC No Charge 06/18/2025 7:15 AM CDT [facility] Blood 06/18/2025 7:15 AM CDT 06/18/2025 7:17 AM CDT Narrative [facility] - 06/18/2025 7:15 AM CDT References ranges displayed are for Arterial samples. Zachary Hamilton MD POINT OF CARE TESTING Final Res ult Performing Organization Address [facility]/ZIP Co de Phone Number [facility] CLIA # [id number] [address] [address] * (ABNORMAL) BLOOD GAS ARTERIAL (06/18/2025 7:15 AM CDT) Only the most recent of36 resultswithin the time period is included. PH BLOOD POC 7.45 7.35 - 7.45 06/18/2025 7:15 AM [facility] PCO2 POC 35 35 - 45 mm Hg 06/18/2025 7:15 AM [facility] PO2 POC 131(H) 80 - 105 mm Hg 06/18/2025 7:15 AM [facility] HCO3 (CALC) POC 24 22 - 26 mmol/L 06/18/2025 7:15 AM [facility] HEMOGLOBIN POC 9.6(L) 12.0 - 18.0 g/dL 06/18/2025 7:15 AM [facility] BASE EXCESS POC 0 -2 - 3 mmol/L 06/18/2025 7:15 AM [facility] O2 SATURATION POC 99(H) 95 - 98 % 7:15 AM [facility] SODIUM POC 140 138 - 146 mmol/L 06/18/2025 7:15 AM [facility] POTASSIUM POC 4.0 3.5 - 4.9 mmol/L 06/18/2025 7:15 AM [facility] HEMATOCRIT POC 29(L) 38 - 51 % 06/18/2025 7:15 AM [facility] PH TEMP CORRECT 7.45 7.35 - 7.45 06/18/2025 7:15 AM [facility] PCO2 TEMP CORRECT 35 35 - 45 mm Hg 06/18/2025 7:15 AM [facility] PO2 TEMP CORRECT 131(H) 80 - 105 mm Hg 06/18/2025 7:15 AM [facility] SPECIMEN SOURCE, GASES POC Arterial 06/18/2025 7:15 AM [facility] CALCIUM IONIZED POC 4.6(L) 4.8 - 5.2 mg/dL 06/18/2025 7:15 AM [facility] TCO2 (CALC) POC 25 23 - 27 mmol/L 06/18/2025 7:15 AM [facility] FIO2 45.0 21.0 - 100.0 % 06/18/2025 7:15 AM CDT [facility] Comment:FIO2 values reported <21.0 indicate O2 flow in Liters/minute. Values >/= 21.0 indicate percent O2. P/F RATIO POC 291 06/18/2025 7:15 AM CDT [facility] Comment: P/F Ratio Interpretation ARDS SEVERITY PaO2/FiO2 Mild 200-300 Moderate 100-200 Severe <100 PEEP POC 12 06/18/2025 7:15 AM CDT [facility] PUNC SITE POC No Charge 06/18/2025 7:15 AM CDT [facility] [employer] [facility] VENT MODE POC PRVC 06/18/2025 7:15 AM CDT [facility] PATIENT'S TEMPERATURE POC 37.0 degrees 06/18/2025 7:15 AM CDT [facility] Blood, arterial 06/18/2025 7 :15 AM CDT 06/18/2025 7:17 AM CDT us Zachary Hamilton MD ABG ORDERABLES Final Result Performing Organization Address City/[facility]/ZIP Co de Phone Number [facility] CLIA # [id number] [address] [address] * (ABNORMAL) HAPTOGLOBIN (06/18/2025 3:36 AM CDT) Only the most recent of7 resultswithin the time period is included. HAPTOGLOBIN 305(H) 30 - 200 mg/dL 06/18/2025 4:20 AM CDT [facility] Blood Arterial / Unknown 3:36 AM CDT 06/18/2025 3:39 AM CDT Zenaida Ray MD CHEMISTRY ORDERABLES Final Resul t [facility] CLIA # [id number] [address] [address] [place] [address] * (ABNORMAL) BLOOD GAS,(INCL. H+H, LYTES, GLUC) (06/17/2025 3:38 PM CDT) Only the most recent of3 resultswithin the time period is included. PH BLOOD POC 7.47(H) 7.35 - 7.45 06/17/2025 3:38 PM CDT [facility] PCO2 POC 35 35 - 45 mm Hg 06/17/2025 3:38 PM T [facility] PO2 POC 70(L) 80 - 105 mm Hg 06/17/2025 3:38 PM T [facility] TCO2 (CALC) POC 27 23 - 27 mmol/L 06/17/2025 3:38 PM [facility] HCO3 (CALC) POC 26 22 - 26 mmol/L 06/17/2025 3:38 PM T [facility] O2 SATURATION POC 98 95 - 98 % 06/17/2025 3:38 PM CDT [facility] BASE EXCESS POC 2 -2 - 3 mmol/L 06/17/2025 3:38 PM T [facility] HEMOGLOBIN POC 9.0(L) 12.0 - 18.0 g/dL 06/17/2025 3:38 PM [facility] HEMATOCRIT POC 27(L) 38 - 51 % 06/17/2025 3:38 PM T [facility] GLUCOSE POC 139(H) 74 - 99 mg/dL 06/17/2025 3:38 PM [facility] SODIUM POC 139 138 - 146 mmol/L 06/17/2025 3:38 PM [facility] POTASSIUM POC 3.3(L) 3.5 - 4.9 mmol/L 06/17/2025 3:38 PM [facility] CALCIUM IONIZED POC 4.7(L) 4.8 - 5.2 mg/dL 06/17/2025 3:38 PM [facility] PH TEMP CORRECT 7.47(H) 7.35 - 7.45 06/17/20 3:38 PM [address] [facility] PCO2 TEMP CORRECT 35 35 - 45 mm Hg 06/17/2025 3:38 PM CDT [facility] PO2 TEMP CORRECT 70(L) 80 - 105 mm Hg 06/17/2025 3:38 PM CDT [facility] SPECIMEN SOURCE, GASES POC Arterial 06/17/2025 3:38 PM CDT [facility] PATIENT'S TEMPERATURE POC 37.0 degrees 06/17/2025 3:38 PM CDT [facility] PUNC SITE POC No Charge 06/17/2025 3:38 PM CDT [facility] Blood, arterial 06/17/2025 3 :38 PM CDT 06/17/2025 3:39 PM CDT Zachary Hamilton MD ABG ORDERABLES Final Result Performing Organization Address City/State/[facility] Co de Phone Number [facility] CLIA # [id number] [address] [place] [address] * XR ABDOMEN 1 VW (06/17/2025 10:29 [...] INTERFACE SYSTEM - 06/16/2025 2:42 PM CDT [facility] Cardiovascular Services Echocardiography Laboratory [address] [place] [address] Limited Transthoracic Echocardiography Patient: Mikael Study ID: ECHO JUAN Parnell Gender: [place] : 1960 Age: 65 Room: [facility] Study 06/16/2025 Pt Inpatient Date: Status: Study 01:53:44 PM CSN #: [id number] Time: Ordering:Zachary Hamilton Combined Rail Operator: LVO Indications and History: Assess cardiac [...] (H) gina values outside specified reference range. [facility] Echo Labs are accredited with the Intersocietal Accreditation Commission - Echocardiography. Prepared and Electronically Authenticated Rudy Callahan MD Confirmed 06/16/2025 14:42 Procedure Note Rudy Callahan MD - 06/16/2025 [facility] Echocardiography Laboratory [address] [place] [address] Limited Transthoracic Echocardiography Patient: Mikael Study ID: ECHO LIMITED LALITO Rom Gender: M : 1960 Age: 65 Room: [facility] Study 06/16/2025 Pt Inpatient Date: Status: Study 01:53:44 PM CSN #: [id number] Time: Ordering:Zachary Hamilton Combined Rail Operator: LVO Indications and History: Assess cardiac [...] (H) gina values outside specified reference range. [facility] Echo [facility] are accredited with theIntersocietal Accreditation Commission - Echocardiography. Prepared and Electronically Authenticated Rudy Callahan MD Confirmed 06/16/2025 14:42 us Zachary Hamilton MD US ORDERABLES Final Result Performing Organization Address City/[facility]/ZIP Co de Phone Number INTERFACE SYSTEM Refer to clinic/hospital department * (ABNORMAL) TROPONIN (06/16/2025 12:20 PM CDT) Only the most recent of10 resultswithin the time period is included. Pathologist [facility] TROPONIN T, 5TH GEN 3,305(HH) <=15 ng/L 06/16/2025 12:57 PM CDT [facility] Blood Venipuncture / Unknown 06/16/2025 12:20 PM CDT 06/16/2025 12:24 PM CDT Narrative [facility] - 06/16/2025 12:57 PM CDT Troponin elevated. Prince Yordan SANTANA CHEMISTRY ORDERABLES Final Resul t Performing Organization Address [facility] de Phone Number [facility] CLIA # [id number] [address] [place] [address] * (ABNORMAL) OXIMETRY (06/16/2025 4:49 AM CDT) Only the most recent of3 resultswithin the time period is included. [facility] OXYHEMOGLOBIN POC 67.1 40.0 - 70.0 % 06/16/2025 4:49 AM CDT [facility] HEMOGLOBIN POC 9.2(L) 12.0 - 18.0 g/dL 06/16/2025 4:49 AM CDT [facility] O2 SATURATION POC 68 40 - 70 % 025 4:49 AM T [facility] SPECIMEN SOURCE, GASES POC Venous Mixed 06/16/2025 4:49 AM CDT [facility] SAMPLE SITE, GASES POC N-SY 06/16/2025 4:49 AM T [facility] PUNC SITE POC No Charge 06/16/2025 4:49 AM CDT [facility] [place] Blood 06/16/2025 4:49 AM CDT 06/16/2025 4:51 AM CDT Zachary Hamilton MD ABG ORDERABLES Final Result Performing Organization Address City/[facility]/ZIP Co de Phone Number [facility] [place] CLRAVEN # [id number] [address] [address] * TRANSFUSE RED BLOOD CELLS (06/16/2025 1:10 AM CDT) Zachary Hamilton MD BLOOD TRANSFUSION ORDERABLES Fi nal Result * PREPARE RED BLOOD CELLS (06/15/2025 5:31 PM CDT) Only the most recent of5 resultswithin the time period is included. Pathologist [facility] COMPONENT TYPE [id number] [facility] [place] COMPONENT IDENTIFICATION [id number] [facility] [place] UNIT ABO O [facility] [place] UNIT RH POS [facility] [place] CROSSMATCH Compatible [facility] [place] COMPONENT STATUS Returned [facility] [place] COMPONENT EXPIRATION DATE/TIME [id number] [facility] [place] COMPONENT CODING SYSTEM 5100 [facility] [place] VOLUME, BLOOD PRODUCT 350 [facility] [place] 06/15/2025 5:31 PM CDT Zachary Hamilton MD LAB TRANSFUSION ORDERABLES Edit ed Result - Final Performing Organization Address City/[facility]/ZIP Co de Phone Number [facility] [employer] [facility]#[id number] [address] [place] [address], * (ABNORMAL) LACTATE DEHYDROGENASE (06/15/2025 4:03 AM CDT) Only the most recent of4 resultswithin the time period is included. LD (LACTATE DEHYDROGENASE) 666(H) 135 - 225 U/L 06/15/2025 5:46 AM CDT [facility] Blood Venipuncture / Unknown 06/15/2025 4:03 AM CDT 06/15/2025 4:10 AM CDT Zenaida Ray MD CHEMISTRY ORDERABLES Final Resul t [facility] CLIA # [id number] [facility] [address] * (ABNORMAL) LIPID PANEL (06/14/2025 11:23 AM CDT) CHOLESTEROL 85 <200 mg/dL 06/14/2025 12:36 PM CDT [facility] TRIGLYCERIDE 152(H) <150 mg/dL 06/14/2025 12:36 PM CDT [facility] HDL 23(L) 40 - 59 mg/dL 06/14/2025 12:36 PM CDT [facility] LDL CALCULATED 32 <100 mg/dL 06/14/2025 12:36 PM CDT [facility] NON-HDL CHOLESTEROL 62 <130 mg/dL 06/14/2025 12:36 PM CDT [facility] Blood Arterial / Unknown 11:23 AM CDT 06/14/2025 11:35 AM CDT Narrative [facility] - 06/14/2025 12:36 PM CDT TOTAL CHOLESTEROL [...] ORDERABLES Final Resu lt Performing Organization Address [facility] Co de Phone Number [facility] CLIA # [id number] [address] [address] * (ABNORMAL) VANCOMYCIN LEVEL TROUGH (06/14/2025 10:13 AM CDT) VANCOMYCIN, TROUGH 8.2(L) 10.0 - 17.0 ug/mL 06/14/2025 10:56 AM CDT [facility] LABORATORY [facility] Blood Collection / Unknown 06/14/2025 10:13 AM CDT 06/14/2025 10:38 AM CDT Zachary Hamilton MD CHEMISTRY ORDERABLES Final Resu Performing Organization Address [facility] Phone Number [facility] CLIA # [id number] [address] [address] * TYPE AND SCREEN (06/14/2025 8:44 AM CDT) Only the most recent of2 resultswithin the time period is included. ABO GROUP O 06/14/2025 10:03 AM CDT [facility] [place] RH (D) TYPE Positive 06/14/2025 10:03 AM CDT [facility] [place] ANTIBODY SCREEN Negative 06/14/2025 10:03 AM CDT [facility] [place] Blood Arterial / Unknown 8:44 AM CDT 06/14/2025 8:50 AM CDT Zachary Hamilton MD BLOOD BANK ORDERABLES Edited Re sult - Final Performing Organization Address [facility]/ZIP Co de Phone Number [facility] CLIA#[id number] [address] [place], [place] [address] [place] [address] * (ABNORMAL) HEMOGLOBIN A1C (06/14/2025 3:08 AM CDT) Pathologist [facility] HEMOGLOBIN A1C 6.3(H) <=5.6 % 06/16/2025 11:21 AM CDT [facility] EST. AVG GLUCOSE, A1C 134 mg/dL 06/16/2025 11:21 AM CDT [facility] Blood Venipuncture / Unknown 06/14/2025 3:08 AM CDT 06/14/2025 3:14 AM CDT Narrative [facility] - 06/16/2025 11:21 AM CDT HGB A1C INTERPRETATION NORMAL: <5.7% PRE-DIABETES: 5.7 - 6.4% DIABETES: 6.5% OR GREATER Zachary Hamilton MD CHEMISTRY ORDERABLES Final Resu lt Performing Organization Address [facility] Co de Phone Number [facility] CLIA # [id number] [address] [facility] [place] [address] * (ABNORMAL) PNEUMONIA PATHOGEN PCR PANEL (06/13/2025 5:50 PM CDT) Only the most recent of2 resultswithin the time period is included. Pathologist [facility] Haemophilus influenzae by PCR DETECTED( A) Not Detected 06/13/2025 9:01 PM CDT [facility] Streptococcus pneumoniae by PCR DETECTED( A) Not Detected 06/13/2025 9:01 PM CDT [facility] BAL (Lung, RML) Collection / Unknown 06/13/2025 5:50 PM CDT 06/13/2025 6:27 PM CDT Narrative [facility] [employer] [facility] - 06/13/2025 9:01 PM CDT NOTE: Per the occupational health physician, this current lot of reagent may be insensitive for the full detection of adenoviruses. If adenovirus is within the differential diagnosis, the specimen may be submitted to a reference laboratory for further testing. If desired, order [id number] Lab Test, stating Adenovirus by PCR testing [...] [id number]-48-like VIM mecA/C and MREJ us Zenaida Ray MD MICROBIOLOGY - GENERAL ORDERABLE S Final Result [facility] CLIA # [id number] [address] [place] [address] * RESPIRATORY CULTURE WITH GRAM STAIN (06/13/2025 5:50 PM CDT) CULTURE <=1000 cfu/mL Normal upper respiratory alno 06/15/2025 11:44 AM CDT [facility] GRAM STAIN No organisms observed 06/15/2025 11:44 AM CDT [facility] BAL (Lung, RML) Collection / Unknown 06/13/2025 5:50 PM CDT 06/13/2025 6:39 PM CDT us Zenaida Ray MD MICROBIOLOGY - GENERAL ORDERABLE S Final Result [facility] CLIA # [id number] [address] [facility] [place] [address] * LEFT HEART CATH, INTRA AORTIC BALLOON PUMP REMOVAL, INTRA AORTIC BALLOON PUMP INSERTION, PERCUTANEOUS CORONARY INTERVENTION, IVUS-CORONARY INTRAVASCULAR (06/13/2025 10:58 AM CDT) Only the most recent of2 resultswithin the time period is included. Narrative [facility] - 06/13/2025 11:13 AM CDT Table formatting from the original result was not included. Cardiac Catheterization Report [place], [place] PATIENT: Rom Youssef PATIENT NUMBER: [id number] BIRTHDATE: 1960 DATE: 06/13/2025 TIME: 11:13 AM [...] was monitored throughout the procedure by myself, [employer] [facility] [facility] staff. Blood pressure, oxygen level, heart rate [...] pump was then removed via the 8 [place] sheath. 6 [place] JR4 catheter to engage the right coronary artery. Cine angiogram obtained. Subsequently, 6 [place] JR4 guide catheter engaged the right coronary artery. Additional heparin utilized for therapeutic ACT (refer to medication documentation for details). 0.014 run-through wire then advanced past in-stent thrombosis lesion. 3 x 12 mm balloon used for dilatation with evangelical of flow. 4 mm NC balloon angioplasty [...] thrombus. Otherwise, excellent angiographic result obtained. 6 [place] JL4 catheter utilized to engage the left coronary system and obtain cine angiograms. 6 [place] JR4 used to obtain the left heart hemodynamic parameters. A new 40 cc intra-aortic balloon pump then again advanced into the aorta through the 8 [place] sheath. This was placed at 1:1 augmentation [...] therapy thereafter unless prohibitive. Prince Yordan SANTANA, FACC, RPVI 06/13/2025 11:13 AM Estimated Blood Loss There was minimal blood loss during procedure. Assist Devices An IABP was inserted through the right femoral artery after intervention began. The augmentation was 1:1. PCI RISK [facility] Frailty Score: Terminally Ill (Life expectancy < 6 months). NYHA Class: Class II: Slight limitation of physical activity. Comfortable at rest, but ordinary physical activity results in symptoms of HF. (GONZALEZ, walking more than 2 blocks would cause GONZALEZ) CV Instability: persistent ischemic symptoms (chest pain, LUIS). PAD: Unknown. Cerebrovascular Disease History: Unknown us Prince Yordan SANTANA CUP CATH ORDERABLES Final Result [facility] [id number] [facility] [address] [place] [address], [place] [phone] * INSERT MIDLINE IV (06/12/2025 8:49 PM CDT) Only the most recent of2 resultswithin the time period is included. Narrative Rufina Pelayo RN - 06/12/2025 8:49 PM CDT Rufina Pelayo RN 06/12/2025 8:52 PM VASCULAR ACCESS NOTE Midline PATIENT NAME: Rom Youssef DATE OF : 1960 [facility]: [id number] DATE: 06/12/2025 Room: [address] [place] [address] Admit Date: 06/12/2025 Hospital day: LOS: 0 [...] flowsheet Patient tolerated well. Rufina Pelayo RN Charles Hermelindo Magana MD IV THERAPY ORDERABLES Final Result * (ABNORMAL) CBC WITHOUT DIFFERENTIAL (06/12/2025 5:36 PM CDT) WBC 19.4(H) 4.8 - 10.8 K/uL 06/12/2025 5:52 PM CDT [facility] RBC 3.37(L) 4.60 - 6.20 M/uL 06/12/2025 5:52 PM CDT [facility] HEMOGLOBIN 10.8(L) 14.0 - 18.0 g/dL 06/12/2025 5:52 PM CDT [facility] HEMATOCRIT 31.7(L) 41.0 - 53.0 % 06/12/2025 5:52 PM CDT [facility] MCV 94.1 84.0 - 103.0 fL 06/12/2025 5:52 PM CDT [facility] MCH 32.0 27.0 - 34.0 pg 06/12/2025 5:52 PM CDT [facility] MCHC 34.1 30.0 - 35.0 g/dL 06/12/2025 5:52 PM CDT [facility] PLATELETS 204 140 - 440 K/uL 06/12/2025 5:52 PM CDT [facility] MPV 9.4 8.9 - 12.8 fL 06/12/2025 5:52 PM CDT [facility] RDW 13.9 11.0 - 14.5 % 06/12/2025 5:52 PM CDT [facility] RDW-STDEV 48.3 37.0 - 54.0 fL 06/12/2025 5:52 PM CDT [facility] Blood Arterial / Unknown 5:36 PM CDT 06/12/2025 5:46 PM CDT us Zenaida Ray MD HEMATOLOGY ORDERABLES Final Resu lt [facility] CLIA # [id number] [address] [place] [address] [place] [address] * VERIFICATION BLOOD GROUP (06/12/2025 4:20 PM CDT) ABO GROUP O 06/12/2025 4:46 PM CDT [facility] RH (D) TYPE Positive 06/12/2025 4:46 PM CDT [facility] Blood Arterial / Unknown 4:20 PM CDT 06/12/2025 4:28 PM CDT Charles Magana MD BLOOD BANK ORDERABLES Final Result [facility] CLIA#[id number] [facility] [place] [address], * (ABNORMAL) HEPATIC FUNCTION PANEL (06/12/2025 2:45 PM CDT) TOTAL PROTEIN 5.5(L) 6.4 - 8.3 g/dL 06/12/2025 3:43 PM [address] [facility] ALBUMIN 3.0(L) 3.5 - 5.2 g/dL 06/12/2025 3:43 PM CDT [facility] BILIRUBIN TOTAL 0.5 0.0 - 1.0 mg/dL 06/12/2025 3:43 PM CDT [facility] BILIRUBIN DIRECT 0.2 0.0 - 0.3 mg/dL 06/12/2025 3:43 PM CDT [facility] ALKALINE PHOSPHATASE 81 40 - 129 U/L 06/12/2025 3:43 PM CDT [facility] AST 326(H) 10 - 50 U/L 06/12/2025 3:43 PM CDT [facility] ALT 170(H) <=50 U/L 06/12/2025 3:43 PM [address] [facility] Blood Arterial / Unknown 2:45 PM CDT 06/12/2025 2:59 PM CDT Zenaida Ray MD CHEMISTRY ORDERABLES Final Resul t [facility] CLIA # [id number] [facility] [address] * XR PELVIS 1 OR 2 VW [...] INTERFACE SYSTEM - 06/12/2025 8:50 AM CDT [facility] Cardiovascular Services Echocardiography Laboratory [address] [place] [address] Transthoracic Echocardiography Patient: Mikael Study ID: KACI Parnell Gender: M : 1960 Age: 65 Room: [facility] Study 06/12/2025 Pt Inpatient Date: Status: Study 05:49:12 AM CSN #: [id number] Time: Ordering:Prince Yordan Combined Rail Operator: LEVI Indications and History: WV/ACS; Initial evaluation post WV. Labs, prior tests, procedures, and surgery: Catheterization [...] study is available for comparison. 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 Procedure: A transthoracic echocardiogram was performed. Image [...] -9.1 % Peak david, S 102.17 cm/sec BRNET, LAX 3.9 cm Peak grad, S 4 [...] (H) gina values outside specified reference range. [facility] are accredited with the Intersocietal Accreditation Commission - Echocardiography. Prepared and Electronically Authenticated Prince Elysia Farr 06/12/2025 08:50 Procedure Note Prince Farr MD - 06/12/2025 [facility] Echocardiography Laboratory [address] [place] [address] Transthoracic Echocardiography Patient: Mikael Study ID: KACI Parnell Gender: M : 1960 Age: 65 Room: [facility] 06/12/2025 Pt Inpatient Date: Status: Study 05:49:12 AM CSN #: [id number] Time: Ordering:Prince Yordan Combined Rail Operator: LEVI Indications and History: WV/ACS; Initial evaluation post WV. 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 Procedure: A transthoracic echocardiogram wasperformed. Image quality [...] E/e', lat vanessa, TDI 8 E', med vaenssa, TDI 4.9 cm/sec Ascending aorta Value E/e', med vanessa, TDI 8 AAo AP diam, S 3.6 cm E', avg, TDI 5.1 cm/sec AAo AP diam/bsa, S 1.6cm/m^2 E/e', avg, TDI 8 Legend: (L) and (H) gina values outside specified reference range. [facility] are accredited with the[facility] Valleys[facility]etal Accreditation Commission - Echocardiography. Prepared and Electronically Authenticated Prince Elysia Farr 06/12/2025 08:50 Prince Yordan SANTANA ORDERABLES Final Result INTERFACE SYSTEM Refer to clinic/hospital department * EXTRA TUBE (URINE ALVES) (06/12/2025 6:19 AM CDT) Urine (Urine, indwelling (Orta) catheter) Collection / Unknown 06/12/2025 6:19 AM CDT 06/12/2025 6:24 AM CDT Love Suad Carlos MANAGER OF ORGANIZATIONAL DEVELOPMENT URINE ORDERABLES Elsie edil Result [facility] # [id number] [address] [place] [address] [place] [address] * (ABNORMAL) DRUG SCREEN, URINE (06/12/2025 6:19 AM CDT) [facility] AMPHETAMINE QUAL, URINE Negative Negative 06/12/2025 7:15 AM CDT [facility] BARBITURATE QUAL, URINE Negative Negative 06/12/2025 7:15 AM CDT [facility] BENZODIAZEPINE QUAL, URINE Presumptive Positive(A) Negative 06/12/2025 7:15 AM CDT [facility] COCAINE QUAL URINE Negative Negative 06/12/2025 7:15 AM CDT [facility] OPIATE QUAL, URINE Negative Negative 06/12/2025 7:15 AM CDT [facility] CANNABINOIDS QUAL, URINE Presumptive Positive(A) Negative 06/12/2025 7:15 AM CDT [facility] OXYCODONE QUAL, URINE Negative Negative 06/12/2025 7:15 AM CDT [facility] METHADONE QUAL, URINE Negative Negative 06/12/2025 7:15 AM CDT [facility] FENTANYL QUAL, URINE Presumptive Positive(A) Negative 06/12/2025 7:15 AM CDT [facility] CREATININE, URINE 19.2(L) 40.0 - 278.0 mg/dL 06/12/2025 7:15 AM CDT [facility] Comment:Reference Range vari es with fluid intake and diet. Urine (Urine, indwelling (Orta) catheter) Collection / Unknown 06/12/2025 6:19 AM CDT 06/12/2025 6:[address] 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 CLARITY UA Clear Clear 06/12/2025 6:36 AM T [facility] SPECIFIC GRAVITY UA 1.022 1.003 - 1.035 06/12/2025 6:36 AM T [facility] PH UA 6.5 5.0 - 8.0 06/12/2025 6:36 AM T [facility] LEUKOCYTE ESTERASE UA Negative Negative 06/12/2025 6:36 AM T [facility] NITRITE UA Negative Negative 06/12/2025 6:36 AM T [facility] PROTEIN UA 2+(A) Negative 06/12/2025 6:36 AM T [facility] GLUCOSE UA 4+(A) Negative 06/12/2025 6:36 AM T [facility] KETONES UA Negative Negative 06/12/2025 6:36 AM CDT [facility] UROBILINOGEN UA <2.0 <2.0 mg/dL 6:36 AM CDT [facility] BILIRUBIN UA Negative Negative 06/12/2025 6:36 AM CDT [facility] BLOOD UA 3+(A) Negative 06/12/2025 6:36 AM CDT [facility] WBC UA 3-5(A) 0 - 2 /hpf 06/12/2025 6:36 AM CDT [facility] RBC UA 26-50(A) 0 - 2 /hpf 06/12/2025 6:36 AM CDT [facility] BACTERIA UA Negative Negative /hpf 06/12/2025 6:36 AM CDT [facility] EPITHELIAL CELLS, URINE 0-5 0 - 5 /hpf 06/12/2025 6:36 AM CDT [facility] HYALINE CAST 6-10(A) None Seen, 0-2 /lpf 06/12/2025 6:36 AM CDT [facility] Urine (Urine, indwelling (Orta) catheter) Collection / Unknown 06/12/2025 6:19 AM CDT 06/12/2025 6:24 AM CDT Love Gonzalez MANAGER OF ORGANIZATIONAL DEVELOPMENT URINE ORDERABLES Elsie l Result [facility] CLIA # [id number] [address] [place] [address] * (ABNORMAL) LACTIC ACID (06/12/2025 5:42 AM CDT) LACTIC ACID 11.5(HH) <=2.0 mmol/L 06/12/2025 6:35 AM CDT [facility] Blood Arterial / Unknown 5:42 AM CDT 06/12/2025 5:52 AM CDT us Charles Magana MD CHEMISTRY ORDERABLES F inal Result Performing Organization Address City/[facility]/ZIP Co de Phone Number [facility] CLIA # [id number] [address] [address] * KETONES/BETA HYDROXYBUTYRATE (06/12/2025 5:42 AM CDT) BETA HYDROXYBUTYRATE 0.1 0.0 - 0.3 mmol/L 06/12/2025 9:51 AM CDT [facility] Blood Arterial / Unknown 5:42 AM CDT 06/12/2025 5:55 AM CDT us Zenaida Ray MD CHEMISTRY ORDERABLES Final Resul t Performing Organization Address [facility] Co de Phone Number [facility] CLIA # [id number] [facility] [address] * TROPONIN BASELINE, 5TH GEN (06/11/2025 11:25 PM CDT) TROPONIN T, BASELINE 5TH GEN 6 <=15 ng/L 06/11/2025 11:53 PM CDT [facility] Blood BLOOD SPECIMEN / Unknown Collection / Unknown 06/11/2025 11:25 PM CDT 06/11/2025 11:34 PM CDT Narrative [facility] - 06/11/2025 11:53 PM CDT Troponin Detectable but normal range. us Luis Ramos MD CHEMISTRY ORDERABLES Final Result [facility] CLIA # [id number] [address] [place] [address] * (ABNORMAL) PROTIME-INR (06/11/2025 11:25 PM CDT) Pathologist [facility] PROTIME 12.0(L) 12.1 - 14.3 Seconds 06/11/2025 11:48 PM CDT [facility] INR 0.9 0.9 - 1.1 06/11/2025 11:48 PM CDT [facility] Blood BLOOD SPECIMEN / Unknown Collection / Unknown 06/11/2025 11:25 PM CDT 06/11/2025 11:34 PM CDT us Luis Ramos MD HEMATOLOGY ORDERABLES Elsie l Result [facility] CLIA # [id number] [address] [place] [address] * D-DIMER (06/11/2025 11:25 PM CDT) [facility] D-DIMER QUANT 0.21 <0.50 ug/mL FEU 06/11/2025 11:49 PM CDT [facility] Blood BLOOD SPECIMEN / Unknown Collection / Unknown 06/11/2025 11:25 PM CDT 06/11/2025 11:34 PM CDT [facility] - 06/11/2025 11:49 PM CDT D-Dimer assay [...] ug/mL FEU 71-80 years: 0.71-0.80 ug/mL FEU us Luis Ramos MD HEMATOLOGY ORDERABLES Elise l [id number] [address] [place] [address] * BRAIN NATRIURETIC PEPTIDE, BNP OR PROBNP (06/11/2025 11:25 PM CDT) PROBNP, N TERMINAL 46 0 - 125 pg/mL 06/11/2025 11:53 PM CDT [facility] Comment: INTERPRETIVE COMMENT based on diagnosis: Diagnostic [...] Luis Ramos MD CHEMISTRY ORDERABLES Final Result [id number] [address] [place] [address] * Critical Care (06/11/2025 11:17 PM CDT) [...] discussed with: accepting provider at another facility Luis Ramos MD PROCEDURE/MINOR SURGICAL O RDERABLES [...] brain injury and Alternatives discussed: No treatment [place] protocol: Procedure explained and questions answered to [...] Advance Directives For more information, please contact: [phone] Documents on File Type Date Recorded Patient Derrick Worker Expl anation Advance Directive Living Will 06/25/2025 [...]
--- NOTE | 2025-07-11 11:12 | USR_ITS ---
PROCEDURE INFORMATION: Exam: US Left Limited Joint or Other Non-Vascular Extremity Structure Exam date and time: 07/11/2025 11:32 AM Age: 65 years old Clinical indication: Other: Left groin abscess with recent ecmo; Prior surgery; Surgery date: <1 month; Surgery type: 06/11/2025 ecmo placement in left groin TECHNIQUE: Imaging protocol: US left limited joint or other nonvascular extremity structure. Real-time ultrasound with image documentation. Exam focused on the area of clinical interest. COMPARISON: US CV venous duplex [facility] [id number] 07/03/2025 9:19 PM FINDINGS: Other findings: Examination of the left groin demonstrates an irregular collection of fluid and debris within the subcutaneous fat. The collection measures 2.5 cm in greatest diameter and extends anteriorly to the skin surface. US/US soft tissue/extremity [id number] IMPRESSION: Subcutaneous hematoma versus abscess
--- NOTE | 2025-07-11 11:13 | ECG_ITS ---
[facility]: 2025-07[facility]11 Pat Name: Parmjit Youssef Department: Room: Gender: Male Nursing Resident: : 1960 Requested By: Sue Faustin Order Number: [id number] Terra MD: Naveed Velasquez M.D. Measurements Intervals [place] Rate: 71 P: 75 UT: 169 QRS: -28 QRSD: 101 T: -43 QT: 408 QTc: 445 Interpretive Statements SINUS RHYTHM BORDERLINE LEFT AXIS DEVIATION [QRS AXIS < -20] MODERATE T-WAVE ABNORMALITY, CONSIDER ISCHEMIA [-0.1+ mV T-WAVE IN II/aVF] Compared to ECG 07/03/2025 22:09:31 Prolonged QT interval no longer present T-wave abnormality still present Electronically Signed On 07-11-2025 15:00:15 EVENT MARKETING SPECIALIST by Naveed Velasquez M.D. [email or web address]
--- NOTE | 2025-07-11 11:14 | W.ED.CHESTPA ---
HPI - Chest Pain General: Chief Complaint: Headache Stated Complaint: Headache / neck tight Time Seen by Provider: 07/11/25 11:01 History of Present Illness: Patient is a 65-year-old gentleman with history of CAD, status post stenting at [facility] 06/11, cardiac arrest, ECMO, presents to the ED with central chest pain that occurred last p.m., improved when sitting forward, now gone. At time of chest pain early this a.m., patient sat up, had radiation up bilateral neck. This was associated with headache this a.m. This is now gone. He has already had his aspirin, Brilinta, and Eliquis. Patient also has recent ECMO as noted with left groin oozing, yellow, drainage. Associated symptoms: Deny abdominal pain, dyspnea, fever(s) or palpitations Related Data Home Medications ?Medication ?Instructions ?Recorded ?Confirmed aspirin 81 mg tablet,delayed 81 mg PO DAILY 07/08/25 07/11/25 release (Adult Low Dose Aspirin) nitroglycerin 0.4 mg sublingual 0.4 mg sublingual Q5M PRN Chest 07/08/25 07/11/25 tablet Pain doxycycline hyclate 100 mg tablet 100 mg PO BID [id number] 07/11/25 07/11/25 Previous Rx's ?Medication ?Instructions ?Recorded apixaban 5 mg tablet (Eliquis) 5 mg PO BID #60 tabs 07/08/25 evolocumab 140 mg/mL subcutaneous 140 mg SUBCUT . & 15 #2 mL 07/08/25 pen injector (Hiwot Sorto) furosemide 40 mg tablet (Lasix) 40 mg PO DAILY #30 tabs 07/08/25 losartan 25 mg tablet 12.5 mg (1/2 x 25 mg) PO DAILY #15 07/08/25 tabs mupirocin 2 % topical ointment 1 applic topical BID #22 grams 07/08/25 rosuvastatin 20 mg tablet 20 mg PO .at bedtime #30 tabs 07/08/25 spironolactone 25 mg tablet 12.5 mg (1/2 x 25 mg) PO DAILY #15 07/08/25 tabs ticagrelor 90 mg tablet 90 mg PO BID #60 tabs 07/08/25 doxycycline hyclate 100 mg capsule 100 mg PO BID 30 days #60 caps 07/11/25 Allergies Allergy/AdvReac Type Severity Reaction Status Date / Time No Known Allergies Allergy Verified 07/11/25 10:57 Review of Systems General: Reports: 10 or more systems reviewed and unremarkable except in HPI and below Const: Denies: fever(s), change in appetite or change in sleep pattern Eyes: Denies: change in vision ENMT: Denies: odynophagia, hoarseness, nasal congestion or post nasal drip Card: Reports: chest pain (now gone); Denies: palpitations or swelling of feet/ankles Resp: Denies: dyspnea or non-productive cough GI: Denies: abdominal pain, dysphagia, heartburn, change in bowel habits or hematochezia : Denies: hematuria Musc: Reports: neck pain (now gone); Denies: back pain or joint stiffness Skin/Breast: Denies: rash or pruritus Neuro: Reports: headache(s) (now gone); Denies: difficulty walking or dizziness Psych: Denies: anxiety, depression, irritability or suicidal ideation Endo: Denies: hot flashes Cristofer/Lymph: Denies: easy bruising or enlarged lymph nodes All/Imm: Denies: seasonal rhinorrhea PFSH ED PFSH: Medical History (Updated 07/11/25 @ 13:48 by SANJUANA Vigil) History of smoking Left leg DVT CAD (coronary artery disease) Surgical History (Updated 07/08/25 @ 16:05 by LINDSEY Zepeda) History of shoulder surgery right History of hernia repair age of 21 right inguinal History of coronary artery stent placement 2 stent at [facility] 06/11/25 Family History (Updated 07/08/25 @ 15:54 by Tena Alvarado MA) Mother Heart disease COPD exacerbation Father Cancer Kidney Brother Stroke Denies family history of Alzheimer's dementia Diabetes Dementia Social History (Updated 07/08/25 @ 16:18 by LINDSEY Zepeda) Smoking and tobacco/nicotine status: former use of tobacco/nicotine Alcohol intake: former Substance/Drug Use: former Adopted: No Caregiver/support person: No Lives independently: Yes Household members: significant other Housing: Other Marital status: Life Partner Number of children: 3 service: No Current occupational status: retired Current occupational exposures/hazards: No Pets and animals: Yes Pets & animals: dog(s) Sexually active: No Do you think of yourself as: Straight/Heterosexual Current gender identity: Male Special lula needs: No Physical Exam Const: COMMON NORMALS: no acute distress GENERAL APPEARANCE: cooperative; not ill appearing and not frail appearing HENMT: COMMON NORMALS: normocephalic, atraumatic and Normal external nose present HEAD & SCALP: normocephalic and atraumatic FACE & SINUS: normal facial exam and face symmetric NOSE: Normal external nose present Eye: COMMON NORMALS: Equal, round and reactive pupils present and EOMs intact bilaterally PUPIL: Yes Equal, round and reactive pupils present Neck/C-Spine: GENERAL: Yes trachea midline Chest: CHEST: Yes Symmetrical chest wall rise Resp: COMMON NORMALS: normal respiratory effort, No retractions, No use of accessory muscles and clear to auscultation bilaterally AUSCULTATION: clear to auscultation bilaterally Cardio: COMMON NORMALS: regular rate and regular rhythm RATE: regular rate RHYTHM: regular rhythm GI: COMMON NORMALS: Normal to inspection, nondistended, normoactive bowel sounds present Extremity: COMMON NORMALS: no pedal edema Neuro: JAISON COMA SCALE: document GCS findings Hadley coma scale eye opening: Spontaneous Jaison coma scale verbal response: Orientated Hadley coma scale motor response: Obey commands Jaison coma scale total score: 15 SENSORY EXAM: Yes extremities (intact) Psych: COMMON NORMALS: speech normal SPEECH: Yes normal speech Skin: NARRATIVE SKIN EXAM: Exam the left lower extremity reveals a Wound to the left groin covered with a bandage. Bandage was removed, localized redness, granulation, and yellow drainage. Mild tenderness and induration. No streaking. Course Reevaluation(s): Reevaluation #1: No chest pain. Blood pressure 104/71 Vital Signs: Vital signs: Vital Signs Temperature 97.7 F 07/11/25 10:49 Pulse Rate 67 07/11/25 12:36 Blood Pressure 123/77 07/11/25 12:36 Pulse Oximetry 98 07/11/25 12:36 Oxygen Delivery Me thod Room Air 07/11/25 10:49 MDM - Chest Pain Medical Decision Making Patient is a 65-year-old gentleman with significant recent history of cardiac arrest, on ECMO, PCI and stenting of unknown CAD at [facility]. He awoke with chest discomfort. Initial troponin is 38. He has been compliant to his medications, Brilinta, Eliquis. He will require awaiting 2-hour troponin to make sure this is flat. As well as all these concerns, patient has left groin discomfort, and some drainage, and ultrasound was obtained. Small hematoma versus abscess was noted at 2.5 cm. This is not amicable to draining. Plan is for doxycycline for MRSA coverage, and wound care following, and packing this wound. They have mupirocin and they are applying topically. Discussed with content production specialist. There is no area that she saw as a collection to actually drain. Lab Data 07/11/25 11:26 07/11/25 11: Radiology Impressions Soft Tissue Ultrasound 07/11/25 11:12 IMPRESSION: Subcutaneous hematoma versus abscess Chest X-Ray 07/11/25 11: IMPRESSION: No acute findings. Laboratory Results WBC 13.74 10^3/uL (3.29-11.43) H 07/11/25 11: RBC 3.51 10^6/uL (3.85-5.65) L 07/11/25 11:26 Hgb 11.00 g/dL (11.27-16.99) L 07/11/25 11:26 Hct 32.5 % (37-53) L 07/11/25 11:26 MCV 92.6 fl (82-101) 07/11/25 11:26 MCH 31.3 pg (27-33) 07/11/25 11: MCHC 33.8 g/dL (30-55) 07/11/25 11:26 RDW 15.1 % (12.1-15.1) 07/11/25 11:26 Plt Count 243 10^3/cmm (157-399) 07/11/25 11:26 MPV 8.6 fL (7.4-10.4) 07/11/25 11:26 Neut % (Auto) 65.0 % 07/11/25 11:26 Lymph % (Auto) 23.3 % 07/11/25 11:26 [place] % (Auto) 6.4 % 07/11/25 11:26 Eos % (Auto) 3.9 % 07/11/25 11: Baso % (Auto) 0.7 % 07/11/25 11:26 Neut # (Auto) 8.94 10^3/uL (1.8-7.7) H 07/11/25 11:26 Lymph # (Auto) 3.2 10^3/uL (0.8-4.8) 07/11/25 11:26 [place] # (Auto) 0.9 10^3/uL (0.2-0.9) 07/11/25 11:26 Eos # (Auto) 0.5 10^3/uL (0.0-0.8) 07/11/25 11:26 Baso # (Auto) 0.1 10^3/uL (0.0-0.1) 07/11/25 11:26 Nucleated RBC % (auto) 0 % 07/11/25 11: Nucleated RBCs # 0.0 /100WBC 07/11/25 11:26 Sodium 135 mmol/L (136-145) L 07/11/25 11:26 Potassium 3.7 mmol/L (3.5-5.1) 07/11/25 11:26 Chloride 100 mmol/L (98-107) 07/11/25 11:26 Carbon Dioxide 23 mmol/L (22-29) 07/11/25 11:26 Anion Gap 15.7 (5-19) 07/11/25 11:26 BUN 22 mg/dL (8-23) 07/11/25 11:26 Creatinine 0.6 mg/dL (0.7-1.2) L 07/11/25 11:26 GFR Calculation 135.6 mL/min (90-130) H 07/11/25 11:26 Glucose 95 mg/dL (65-115) 07/11/25 11:26 Calculated Osmolality 283 mOsm/kg (285-295) L 07/11/25 11:26 Calcium 9.2 mg/dL (8.5-10.5) 07/11/25 11:26 Total Bilirubin 0.3 mg/dL (0.15-1.2) 07/11/25 11:26 AST 17 U/L (0-40) 07/11/25 11:26 ALT 17 U/L (0-41) 07/11/25 11:26 Alkaline Phosphatase 140 U/L (40-130) H 07/11/25 11:26 Troponin T Baseline 38 ng/L (0-15) H 07/11/25 11:26 Troponin T 120 Minute 31.53 ng/L (0-15) H 07/11/25 13:19 Delta Troponin T -6.47 ABS# (0-10) L 07/11/25 13:19 NT-Pro-B Natriuret Pep 520 pg/mL (0-125) H 07/11/25 11:26 Total Protein 7.8 g/dL (6.6-8.7) 07/11/25 11:26 Albumin 4.0 g/dL (3.5-5.2) 07/11/25 11:26 Globulin 3.8 g/dL (1.3-4.6) 07/11/25 11:26 All radiology interpretation(s) finalized by discharge ED provider radiology interpretation(s): No acute findings. Compared to 07/03 EKG Data EKG 1: Interpretation: Normal sinus rhythm, left axis, inverted T waves lead II, and lateral no ST segment elevation Discharge Plan Discharge Patient Disposition: Home Clinical Impression: Cellulitis of groin, left, Non-cardiac chest pain Condition: Stable Prescriptions: New doxycycline hyclate 100 mg capsule 100 mg PO BID 30 Days Qty: 60 0RF No Action aspirin [Adult Low Dose Aspirin] 81 mg tablet,delayed release (DR/EC) 81 mg PO DAILY nitroglycerin 0.4 mg tablet, sublingual 0.4 mg sublingual Q5M PRN (Reason: Chest Pain) Rx Instructions: do not exceed 3 doses per episode Repatha SureClick 140 mg/mL pen injector 140 mg SUBCUT . & 15 Qty: 2 0RF Eliquis 5 mg tablet 5 mg PO BID Qty: 60 0RF furosemide [Lasix] 40 mg tablet 40 mg PO DAILY Qty: 30 0RF losartan 25 mg tablet 12.5 mg PO DAILY Qty: 15 0RF rosuvastatin 20 mg tablet 20 mg PO .at bedtime Qty: 30 0RF spironolactone 25 mg tablet 12.5 mg PO DAILY Qty: 15 0RF ticagrelor 90 mg tablet 90 mg PO BID Qty: 60 0RF mupirocin 2 % ointment 1 applic topical BID Qty: 22 0RF doxycycline hyclate 100 mg tablet 100 mg PO BID Discharge Orders: Discharge ED (Routine); Ordered 11/16/25 Ordered By: Sue Faustin Referrals: Monica Rangel, [facility] [Primary Care Provider, Family Practice] Patient Instructions: Cellulitis (ED), Noncardiac Chest Pain (ED), Patient Portal & Chiki Instructions Activity Restrictions/Additional Instructions: - Follow along wound care directions. A wound care referral has been made and case management will call you to follow-up. This needs to be followed with wound care until it is completely closed. - In the meantime: Placed on mupirocin on his left groin twice daily, cover with Vaseline gauze, nonadherent dressing, and paper tape. - You may place ice on this area for pain, and utilize Tylenol for pain. Avoid ibuprofen/naproxen/additional anti-inflammatories with his Eliquis, and Brilinta - Continue take your medication as directed. I am impressed you are such a good patient -The doxycycline is important to take twice daily. Get another dose in tonight. You will need to eat a snack with your doxycycline or it does cause nausea. This is a side effect, not a allergy. The side effect will stop with a little snack. - Please return to ED if you have further issues. Thank you for choosing [facility] for your healthcare needs today. You have been screened and evaluated and felt safe for discharge. Health conditions do change or evolve sometimes and as such it is important that you follow up with your Primary Doctor to be re checked, 3-5 days is a general good time frame for follow up. You are always welcome to return to the ED for re assessment if your symptoms are worsening or you have new concerns Print Language: Turkish Coding Level of Care Code ED Chain Link Fence Installer for Chg Fwd Heart Score HEART Score Components History: Slightly Suspicous EKG: Normal Age: 45-64 yrs Risk Factors: 1 or 2 Risk Factors Troponin: Baseline Trop 16-45 ng/L HEART Score RESULT HEART Score: 3
--- NOTE | 2025-07-11 11:16 | XRR_ITS ---
PROCEDURE INFORMATION: Exam: XR Chest Exam date and time: 07/11/2025 11:46 AM Age: 65 years old Clinical indication: Pain; Chest pressure; Prior surgery; Surgery date: 6+ months; Surgery type: Cardiac stents; Additional info: Chest pain; Headache; Neck tight; HX massive mi with ecmo support x 20 days TECHNIQUE: Imaging protocol: Radiologic exam of the chest. Views: 1 view. COMPARISON: CR (CHEST, ) 07/03/2025 7:00 PM FINDINGS: Lungs: Both lungs demonstrate diffuse interstitial coarsening which is felt to be chronic. No lung mass or infiltrate. Pleural spaces: Unremarkable. No pleural effusion. No pneumothorax. Heart/Mediastinum: Unremarkable. No cardiomegaly. Bones/joints: Unremarkable. XR/XR chest 1V portable [id number] IMPRESSION: No acute findings.
[2025-07-11 11:31] LABS: Hematocrit 32.5 % (37-53); Hemoglobin 11.00 g/dL (11.27-16.99); Mean Corpuscular HGB Conc 33.8 g/dL (30-55); Mean Corpuscular Hemoglobin 31.3 pg (27-33); Mean Corpuscular Volume 92.6 fl (82-101); Nucleated Red Blood Cells % 0 %; Platelet Count 243 10^3/cmm (157-399); Red Blood Count 3.51 10^6/uL (3.85-5.65); White Blood Count 13.74 10^3/uL (3.29-11.43)
[2025-07-11 11:57] LABS: Troponin(5th) Baseline 38 ng/L (0-15)
[2025-07-11 12:12] LABS: Alanine Aminotransferase 17 U/L (0-41); Albumin Level 4.0 g/dL (3.5-5.2); Alkaline Phosphatase 140 U/L (40-130); Aspartate Amino Transferase 17 U/L (0-40); Blood Urea Nitrogen 22 mg/dL (8-23); Calcium 9.2 mg/dL (8.5-10.5); Carbon Dioxide 23 mmol/L (22-29); Chloride 100 mmol/L (98-107); Globulin 3.8 g/dL (1.3-4.6); Glucose 95 mg/dL (65-115); NT Pro B Type Natriuretic Pept 520 pg/mL (0-125); Osmolality Calculated 283 mOsm/kg (285-295); Sodium 135 mmol/L (136-145); Total Protein 7.8 g/dL (6.6-8.7)
--- NOTE | 2025-07-11 12:12 | PC.PHAR ---
Pt carries a med list from Monica Rangel's office
[2025-07-11 12:14] LABS: Anion Gap 15.7 (5-19); Potassium 3.7 mmol/L (3.5-5.1)
[2025-07-11] MEDS: orphenadrine 30 mg/mL Inj 2 mL IVP (12:24)
[2025-07-11 12:36] VITALS: BP 123/77; PULSE 67; O2SAT 98
--- NOTE | 2025-07-11 13:13 | ECG_ITS ---
[facility] Test Date: 2025-07-11 Pat Name: Parmjit Youssef Department: Room: Gender: Male Health Manager: : 1960 Requested By: Sue Faustin Order Number: [id number] Terra MD: Naveed Velasquez M.D. Measurements Intervals [place] Rate: 62 P: 84 UT: 171 QRS: -34 QRSD: 97 T: -61 QT: 444 QTc: 454 Interpretive Statements SINUS RHYTHM LEFT AXIS DEVIATION [QRS AXIS < -30] POSSIBLE INFERIOR MYOCARDIAL INFARCTION , OF INDETERMINATE AGE [30 ms Q WAVE IN II/aVF] MODERATE T-WAVE ABNORMALITY, CONSIDER LATERAL ISCHEMIA [-0.1+ mV T-WAVE IN I/aVL/V5/V6] Compared to ECG 07/11/2025 11:00:46 T-wave abnormality still present Possible ischemia still present Electronically Signed On 07-11-2025 15:35:38 REGULATORY LEAD by Naveed Velasquez M.D. [email or web address]
[2025-07-11 13:51] LABS: Troponin 5 2HR 31.53 ng/L (0-15); Troponin 5 2HR Delta -6.47 ABS# (0-10)
[2025-07-11] MEDS: mupirocin oint 22 gm 1 APPLIC TOPICAL (14:31)
[2025-07-11 14:55] VITALS: BP 128/74; PULSE 73; O2SAT 97
--- NOTE | 2025-07-12 09:50 | DCPLANNER ---
messaged wound care for er f/u
== END 2025-07-11 14:55 | disposition home or self-care (01) ==
PROVIDERS: Emergency Provider Physician Assistant; PCP Nurse Practitioner
DX: L03.314 Cellulitis of groin (principal); R07.89 Other chest pain; Z79.82 Long term (current) use of aspirin; Z79.01 Long term (current) use of anticoagulants; Z87.891 Personal history of nicotine dependence; I25.10 Atherosclerotic heart disease of native coronary artery without angina pectoris
CPT/HCPCS: 71045; 76882; 80053; 83880; 84484; 85025; 93005; 96374; 99285; J2360; J9999

== ENCOUNTER 2025-08-11 16:46 | Outpatient (CLI) | payer MEDICAID, SELFPAY ==
--- NOTE | 2025-08-11 16:45 | USR_ITS ---
PROCEDURE INFORMATION: Exam: US Duplex Bilateral Lower Extremity Arteries Exam date and time: 08/11/2025 4:55 PM Age: 65 years old Clinical indication: Other: Claudication TECHNIQUE: Imaging protocol: Real-time ultrasound scan of the arteries of the bilateral lower extremities with 2-D cortés scale, color Doppler flow and spectral waveform analysis. Images documented and saved. COMPARISON: US soft tissue/extremity [id number] 07/11/2025 11:32 AM FINDINGS: Right common femoral artery: No occlusion or significant stenosis. Normal waveform. Right superficial femoral artery: No occlusion or significant stenosis. Normal waveform. Right popliteal artery: No occlusion or significant stenosis. Normal waveform. Right calf/foot arteries: No occlusion or significant stenosis in the visualized arteries. Normal waveforms. Dorsalis pedis artery is patent. Left common femoral artery: No occlusion or significant stenosis. Normal waveform. Left superficial femoral artery: No occlusion or significant stenosis. Normal waveform. Left popliteal artery: No occlusion or significant stenosis. Normal waveform. Left calf/foot arteries: No occlusion or significant stenosis in the visualized arteries. Normal waveforms. Dorsalis pedis artery is patent. US/CV arterial duplex [facility] [id number] IMPRESSION: No stenosis or occlusion.
== END 2025-08-11 16:47 | disposition home or self-care (01) ==
PROVIDERS: PCP Nurse Practitioner; Visit Provider Internal Medicine Cardiovascular Disease
DX: I73.9 Peripheral vascular disease, unspecified (principal)
CPT/HCPCS: 93925

== ENCOUNTER 2025-08-15 19:05 | Emergency (ER) | payer MEDICAID, SELFPAY ==
[2025-08-15] VITALS (8 sets, daily range): BP systolic 91–144; BP diastolic 64–90; PULSE 67–82; RESP 15–19; TEMP 36.6; O2SAT 94–98; BMI 29.5
--- OUTSIDE RECORDS SUMMARY | 2025-08-15 19:09 | XMS_ITS | Encounter Summary ---
Author Organization [employer] Address [address] [place] [address] Care Team Providers Care Stars Specialist Name Role Phone Unavailable Primary Care Provider Unavailabl e Encounter Details Date Type Department Care Team (Late st Contact Info) Description 08/10/2025 External Device Data STL ABSTRACTION Provider, Abstract [...] worry about transportation for future doctor visits, picking crew supervisor medication, etc.? No 2024 Housing Stability Answer [...] st Contact Info) Description 10/21/2025 2:40 PM HOUSEHOLD ASSISTANT Office Visit [facility] [address] [place] [phone] Tri Price MD [address] [place] [phone] Madalyn Ernandez PA-C [address], [address] [place] [phone] 11/02/2025 2:20 PM CDT Office Visit [facility] [address] [place] [phone] Anyi López, NEONATAL SURGEON [address] [place] [phone] documented as of this encounter Visit Diagnoses Not on filedocumented in this encounter
--- OUTSIDE RECORDS SUMMARY | 2025-08-15 19:09 | XMS_ITS | Clinical Summary ---
Author Organization Corina Gregorio [facility] Address [address] beds at the [facility] [address] [place] [address] Phone Care Team Providers Care Lip Reading Teacher Name Role Phone Unavailable Primary Care Provider Unavailabl e Allergies No known active allergies Medications apixaban (ELIQUIS) 5 mg tablet Take 2 Tablets (10 mg) by mouth 2 times daily for 4 days, THEN take 1 Tablet (5 mg) by mouth 2 times daily. Continue taking until advised by PCP/cardiologi st to stop 76 Tablet 1 06/27/2025 1:30 PM MANAGER REVIEW 5 Active furosemide (LASIX) 40 mg tablet Take 1 Tablet (40 mg) by mouth daily. 30 Tablet 1 06/27/2025 1:30 PM MANAGER REVIEW 5 Active losartan (COZAAR) 25 mg tablet Take ONE-HALF Tablet (12.5 mg) by mouth daily. 30 Tablet 06/27/2025 1:30 PM MANAGER REVIEW 5 Active nitroglycerin (NITROSTAT) 0.4 mg Tablet, Sublingual Place 1 Tablet (0.4 mg) under tongue every 5 minutes as needed for Chest Pain (Not to exceed 3 doses, notify physician if chest pain not relieved, hold if systolic BP less than or equal to 90 mmHg). 25 Tablet 06/27/2025 1:30 PM MANAGER REVIEW 5 Active rosuvastatin (CRESTOR) 20 mg tablet Take 1 Tablet (20 mg) by mouth daily at bedtime. 30 Tablet 1 06/27/2025 1:30 PM MANAGER REVIEW Active spironolactone (ALDACTONE) 25 mg tablet Take ONE-HALF Tablet (12.5 mg) by mouth daily. 30 Tablet 06/27/2025 1:30 PM MANAGER REVIEW Active ticagrelor (BRILINTA) 90 mg Tablet Take 1 Tablet (90 mg) by mouth 2 times daily. 60 Tablet 1 06/27/2025 1:30 PM MANAGER REVIEW Active Active Problems Problem Noted Date Diagnosed Date [...] Encounters Date Type Department Care Team Description 08/10/2025 External Device Data STL ABSTRACTION Provider, Abstract 07/13/2025 External Device Data STL ABSTRACTION Provider, Abstract 06/30/2025 External Device Data STL ABSTRACTION Provider, Abstract 06/29/2025 External Device Data STL ABSTRACTION Provider, Abstract 06/22/2025 Patient Outreach [facility] [address] [place] [address] Desi Thrasher Referral ([id number]); Medication Assistance; Financial Assistance Program 06/17/2025 3:31 PM CDT - 06/17/2025 5:01 PM CDT Surgery [facility] Cardiovascular Operating Room [address] [place] [phone] Kim Penny MD EXTRACORPOREAL CIRCULATION MEMBRANE OXYGENATION REMOVAL 06/17/2025 3:02 PM CDT Anesthesia Event [facility] Cardiovascular Operating Room [address] [place] [address] Brian Rg MD Schmitt, Adriel, MIGUEL 06/16/2025 External Device Data STL ABSTRACTION Provider, Abstract 06/16/2025 External Device Data STL ABSTRACTION Provider, Abstract 06/15/2025 External Device Data STL ABSTRACTION Provider, Abstract 06/13/2025 8:55 AM CDT - 06/13/2025 9:55 AM CDT Surgery [facility] Cardiac Chief Risk Officer [address] [place] [phone] Prince Farr MD Left heart cath 06/12/2025 5:00 AM CDT Ancillary Procedure [facility] Operating Room [facility] [place] [phone] 06/12/2025 4:15 AM CDT Anesthesia Event [facility] Cardiovascular Operating Room [address] [place] [phone] Chaz Hill MD Albaugh, Monroe Ayala, DIE ENGRAVER 06/12/2025 4:15 AM CDT - 06/12/2025 8:58 AM CDT Surgery [facility] Cardiovascular Operating Room [address] [phone] Kim Penny MD CASE CANCELLED 06/12/2025 2:00 AM CDT - 06/12/2025 3:00 AM CDT Surgery [facility] Cardiac Chief Risk Officer [address] [place] [phone] Prince Farr MD Left heart cath 06/12/2025 1:52 AM CDT - 06/27/2025 1:59 PM MANAGER REVIEW Hospital Encounter [facility] 4A Cardiac [address] [place] [address] Doreen Ambrocio MD Sethi, Prince, MD Pendurthi, Madhu Kalyan, MD Cory, Zenaida, MD Lohia, MD John Mai Mariam, MD Sohail, MD Trisha Cano, MD Issac ST elevation myocardial infarction involving right coronary artery (CMS/HCC) Discharge Disposition: Left Against Medical Advice 06/12/2025 - 06/12/2025 11:59 PM CDT Hospital Encounter [facility] [place] [address] [place] [phone] Ambulance, Lltwo [facility] Discharge Disposition: [facility] 06/11/2025 11:18 PM CDT - 06/12/2025 1:05 AM CDT Emergency [facility] Emergency Medicine [address] [place] [phone] Luis Ramos MD Acute myocardial infarction involving other coronary artery of inferior wall, unspecified IN type (CMS/HCC) (Primary Dx) Discharge Disposition: [facility] 06/11/2025 Travel from Last 3 Months Social [...] worry about transportation for future doctor visits, sweet pickle maker medication, etc.? No 2024 Housing Stability Answer [...] Comments Blood Pressure 110/61 06/27/2025 11:45 AM MANAGER REVIEW Pulse 75 06/27/2025 11:45 AM MANAGER REVIEW Temperature 36.8 C (98.2 F) 06/27/2025 11:45 AM MANAGER REVIEW Respiratory Rate 24 06/27/2025 11:45 AM MANAGER REVIEW Oxygen Saturation 97% 06/27/2025 11:45 AM MANAGER REVIEW Inhaled Oxygen Concentration - - Weight 86.9 kg (191 lb 9.3 oz) 06/27/2025 3:50 A M MANAGER REVIEW Height 172.7 cm (5' 8 ) 06/26/2025 3:21 PM CDT Body Mass Index 29.13 06/26/2025 3:21 PM CDT Plan of Treatment Upcoming Encounters Date Type Department Care Team (Late st Contact Info) Description 10/21/2025 2:40 PM MANAGER REVIEW Office Visit [facility] [address] [place] [phone] Tri Price MD [address] [place] [phone] Madalyn Ernandez PA-C [address], [address] [place] [phone] 11/02/2025 2:20 PM CDT Office Visit [facility] [address] [place] [phone] Anyi López, STEEL ERECTING PUSHER [address] [place] [phone] Health Maintenance Due Date Last Done Comments DIABETES ANNUAL FOOT EXAM 1979 DIABETES ANNUAL RETINAL EXAM 1979 DIABETES MICROALBUMIN ANNUAL SCREEN 1979 DTAP/TDAP/TD VACCINES (1 - Tdap) 02/19/1980 COLORECTAL SCREENING 2006 Colorectal Cancer Screening [...] 06/14/2026 06/14/2025 Medical Devices Implanted Type Area Distributor Cleaner Device Identifier Shelf Expiration Date Model / Serial / Lot Clip Ligating Horizon Med Ti [id number] - [facility] [place] [id number] Implanted:Qty: 1 on 06/17/2025 by Kim Penny MD at [facility] Clip N/A: Chest TELEFLEX- WECK CLOSURE SYS [id number] 12/25/2029 [id number] / / [id number] Clip Ligating Horizon Red [id number] - [facility] [place] - [id number] Implanted:Qty: 1 on 06/17/2025 by Kim Penny MD at [facility] Clip N/A: Chest [employer] INC [id number] 02/21/2030 [id number] / / [id number] [place]ena Ptfe Thick 1.6mmx2.5x10.2 cm [id number] - [id number] Implanted:Qty: 1 on 06/17/2025 by Kim Penny MD at [facility] Graft N/A: Chest BARD SADIE VASC [id number] 08/22/2028 [id number] 8 / / [id number] Agent Hemostat Surgicel 2x3in 195s - [id number] Implanted:Qty: 1 on 06/17/2025 by Kim Penny MD at [facility] Hemostatic N/A: Chest J[employer]J- [employer] [id number] 12/23/2029 1953S / / [id number] Agent Hemostat Surgicel 2x3in 1952s - [id number] Implanted:Qty: 1 on 06/17/2025 by Kim Penny MD at [facility] Hemostatic N/A: Chest J[employer]J- [employer] [id number] 12/23/20291952S / / [id number] Agent Hemostat Surgicel 2x3in 1952s - [id number] Implanted:Qty: 1 on 06/17/2025 by Kim Penny MD at [facility] Hemostatic N/A: Chest J[employer] [id number] 12/23/20291952S / / [id number] Agent Hemostat Surgicel 2x3in 1952s - [id number] Implanted:Qty: 1 on 06/17/2025 by Kim Penny MD at [facility] Hemostatic N/A: Chest [employer] [id number] 12/23/20291952S / / [id number] Agent Hemostat Surgicel 2x3in 1952s - [id number] Implanted:Qty: 1 on 06/17/2025 by Kim Penny MD at [facility] Hemostatic N/A: Chest J[employer] [id number] 12/23/20291952S / / [id number] Agent Hemostat Surgicel 2x3in 1952s - [id number] Implanted:Qty: 1 on 06/17/2025 by Kim Penny MD at [facility] Hemostatic N/A: Chest J[employer] [id number] 12/23/20291952S / / [id number] Stent Jai Ritchie Jluis 3.0x15mm Rx [id number] - [id number] Implanted:Qty: 1 on 06/12/2025 by Prince Farr MD at [facility] Stent Right: Coronary [employer] [id number] 03/03/2028 [id number] 015UX / / [id number] Stent Jai Ritchie Jluis 3.0x18mm Rx [id number] - [id number] Implanted:Qty: 1 on 06/12/2025 by Prince Farr MD at [facility] Stent Right: Coronary [employer] [id number] 02/05/2028 [id number] 018UX / / [id number] Procedures Procedure Name Priority Date/Time Associated Diagnosis Comments TELEMETRY REPORT 06/28/2025 3:38 AM MANAGER REVIEW ECHO LIMITED W CONTRAST Stat 06/27/2025 10:50 AM MANAGER REVIEW POC GLUCOSE Routine 06/27/2025 7:09 AM MANAGER REVIEW POC GLUCOSE Routine 06/27/2025 4:58 AM MANAGER REVIEW EKG 12-LEAD Routine 06/27/2025 4:39 AM MANAGER REVIEW CBC WITH DIFFERENTIAL Routine 06/27/2025 1:51 AM [...] ARM BILATERAL Routine 06/24/2025 11:03 AM CDT FRONT COUNTER CLERK EVALUATION Routine 06/24/2025 8:39 AM CDT POC [...] Results * TELEMETRY REPORT (06/28/2025 3:38 AM MANAGER REVIEW) Only the most recent of2 resultswithin the time period is included. us Provider Scanning ECG ORDERABLES Final Result * ECHO LIMITED W CONTRAST (06/27/2025 10:50 AM MANAGER REVIEW) EJECTION FRACTION 44 INTERFACE SYSTEM 06/27/2025 9:13 AM MANAGER REVIEW Narrative INTERFACE SYSTEM - 06/27/2025 11:25 AM MANAGER REVIEW [facility] Cardiovascular Services Echocardiography Laboratory [address] [address] Limited Transthoracic Echocardiography Patient: Mikael Study ID: ECHO JUAN Davis Rom Gender: M : 1960 Age: 65 Room: [facility] Study 06/27/2025 Pt Inpatient Date: Status: Study 09:13:06 AM CSN #: [id number] Time: Ordering:Anyi López Job Press Feeder: GREG Indications and History: IN/ACS; Suspected complication of IN; Other- see comments. VT/VF. Pt discharge today [...] (H) gina values outside specified reference range. [facility] Echo Labs are accredited with the Intersocietal Accreditation Commission - Echocardiography. Prepared and Electronically Authenticated Laurent Feng Confirmed 06/27/2025 11:25 Procedure Note Laurent Feng MD - 06/27/[address] [facility] Cardiovascular Services Echocardiography Laboratory [address] [address] Limited Transthoracic Echocardiography Patient: Mikael Study ID: ECHO LIMITED PREETI Rom Gender: M : 1960 Age: 65 Room: [facility] Study 06/27/2025 Pt Inpatient Date: Status: Study 09:13:06 AM CSN #: [id number] Time: Ordering:Anyi López Job Press Feeder: GREG Indications and History: IN/ACS; Suspected complication of IN; Other-see comments. VT/VF. Pt discharge today needs [...] date: 06/27/2025. Study time: 09:13 AM. Location: [facility]. Cardiac Anatomy: LEFT VENTRICLE: The cavity size [...] (H) gina values outside specified reference range. [facility] Echo Labs are accredited with theIntersocietal Accreditation Commission - Echocardiography. Prepared and Electronically Authenticated Laurent Feng Confirmed 06/27/2025 11:25 us Anyi López STEEL ERECTING PUSHER US ORDERABLES Final Resu lt INTERFACE SYSTEM Refer to clinic/hospital department * (ABNORMAL) POC GLUCOSE (06/27/2025 7:09 AM MANAGER REVIEW) Only the most recent of126 resultswithin the time period is included. GLUCOSE POC 143(H) 74 - 99 mg/dL 06/27/2025 7:09 AM MANAGER REVIEW [facility] LABORATORY SERVICES [facility] SPECIMEN SOURCE, GLUCOSE POC Capillary 06/27/2025 7:09 AM MANAGER REVIEW [facility] Blood, whole 06/27/2025 7:09 AM MANAGER REVIEW 06/27/2025 7:24 AM MANAGER REVIEW us Issac Rico MD POINT OF CARE TESTING Final Resu lt [facility] CLIA # [id number] [address] [place] [address] * EKG 12-LEAD (06/27/2025 4:39 AM MANAGER REVIEW) Only the most recent of19 resultswithin the time period is included. 06/27/2025 4:39 AM MANAGER REVIEW Narrative INTERFACE SYSTEM - 06/27/2025 12:28 PM MANAGER REVIEW [address] [address] Test Date: 2025-06-27 Pat Name: ROM YOUSSEF Department: 12 Room: [address] [place] [address] Gender: Male Medical Assistant Float: [email or web address] : 1960 Requested By: Order Number: [id number] Reading : Smitha Vora Measurements Intervals [place] Rate: 68 P: 75 TN: 154 QRS: -27 QRSD: 88 T: 89 QT: 510 QTc: 542 Interpretive Statements Normal sinus rhythm ST & T wave abnormality, consider anterolateral ischemia Prolonged QT Abnormal ECG Electronically Signed On 06-27-2025 12:28:08 MANAGER REVIEW by Smitha Vora Procedure Note Provider, Historical - 06/27/[address] [address] Test Date: 2025-06-27 Pat Name: ROM YOUSSEF Department: 12 Room: [address] [place] [address] Gender: Male Medical Assistant Float: [email or web address] : 1960 Requested By: Order Number: [id number] Reading : Smitha Vora Measurements Intervals [place] Rate: 68 P: 75 TN: 154 QRS: -27 QRSD: 88 T: 89 QT: 510 QTc: 542 Interpretive Statements Normal sinus rhythm ST & T wave abnormality, consider anterolateral ischemia Prolonged QT Abnormal ECG Electronically Signed On 06-27-2025 12:28:08 MANAGER REVIEW by Smitha Vora us Ebony Lopez MD ECG ORDERABLES Final Result INTERFACE SYSTEM Refer to clinic/hospital department * (ABNORMAL) CBC WITH DIFFERENTIAL (06/27/2025 1:51 AM CDT) Only the most recent of19 resultswithin the time period is included. Pathologist [facility] WBC 13.2(H) 4.8 - 10.8 K/uL 06/27/2025 2:43 AM [facility] RBC 3.18(L) 4.60 - 6.20 M/uL 06/27/2025 2:43 AM [facility] HEMOGLOBIN 9.8(L) 14.0 - 18.0 g/dL 06/27/2025 2:43 AM [facility] HEMATOCRIT 30.2(L) 41.0 - 53.0 % 06/27/2025 2:43 AM [facility] MCV 95.0 84.0 - 103.0 fL 06/27/2025 2:43 AM [facility] MCH 30.8 27.0 - 34.0 pg 06/27/2025 2:43 AM [facility] MCHC 32.5 30.0 - 35.0 g/dL 06/27/2025 2:43 AM [facility] PLATELETS 608(H) 140 - 440 K/uL 06/27/2025 2:43 AM [facility] MPV 10.3 8.9 - 12.8 fL 06/27/2025 2:43 AM [facility] RDW 12.5 11.0 - 14.5 % 06/27/2025 2:43 AM [facility] RDW-STDEV 43.4 37.0 - 54.0 fL 06/27/2025 2:43 AM [facility] NEUTROPHILS 68 42 - 75 % 06/27/2025 2:43 AM [facility] LYMPHOCYTES 17(L) 24 - 44 % 06/27/2025 2:43 AM [facility] MONOCYTES 8 2 - 10 % 06/27/2025 2:43 AM [facility] EOSINOPHILS 4 0 - 7 % 06/27/2025 2:43 AM [facility] BASOPHILS 1 0 - 1 % 06/27/2025 2:43 AM [facility] IMMATURE GRANULOCYTES 2 0 - 2 % 06/27/2025 2:43 AM [facility] NEUTROPHIL ABSOLUTE 8.99(H) 2.00 - 8.00 K/uL 06/27/2025 2:43 AM [facility] LYMPHOCYTE ABSOLUTE 2.19 1.20 - 4.00 K/uL 06/27/2025 2:43 AM [facility] MONOCYTE ABSOLUTE 1.01(H) 0.10 - 0.60 K/uL 06/27/2025 2:43 AM [facility] EOSINOPHIL ABSOLUTE 0.57 0.00 - 0.70 K/uL 06/27/2025 2:43 AM [facility] BASOPHILS ABSOLUTE 0.13 0.00 - 0.20 K/uL 06/27/2025 2:43 AM [facility] IMMATURE GRANULOCYTES ABSOLUTE 0.29(H) 0.00 - 0.10 K/uL 06/27/2025 2:43 AM [facility] SMEAR REVIEWED: NA - Not Applicable 06/27/2025 2:43 AM [facility] Blood Venipuncture / Unknown 06/27/2025 1:51 AM CDT 06/27/2025 2:35 AM MANAGER REVIEW us Issac Rico MD HEMATOLOGY ORDERABLES Final Resu lt [facility] CLIA # [id number] [address] [address] [place] [address] * (ABNORMAL) BASIC METABOLIC PANEL (06/27/2025 1:51 AM CDT) Only the most recent of8 resultswithin the time period is included. SODIUM 135(L) 136 - 145 mmol/L 06/27/2025 3:05 AM [facility] POTASSIUM 3.8 3.5 - 5.1 mmol/L 06/27/2025 3:05 AM [facility] CHLORIDE 100 98 - 107 mmol/L 06/27/2025 3:05 AM [facility] CO2 23 22 - 29 mmol/L 06/27/2025 3:05 AM [facility] CALCIUM 8.6(L) 8.8 - 10.2 mg/dL 06/27/2025 3:05 AM [facility] BUN 24(H) 8 - 23 mg/dL 06/27/2025 3:05 AM [facility] CREATININE 0.61(L) 0.67 - 1.17 mg/dL 06/27/2025 3:05 AM [facility] GLUCOSE 161(H) 74 - 99 mg/dL 06/27/2025 3:05 AM [facility] GFR >60 >=60 mL/min/1. 73 sq meter 06/27/2025 3:05 AM [facility] Comment:eGFR calculated with 2020 CKD-EPI equation. Vegetarian diet, extremely high or low muscle mass, and may affect results. Cystatin C with Glomerular Filtration Rate is a suitable alternative for these patients. ANION GAP 12 9 - 20 mmol/L 06/27/2025 3:05 AM [facility] Blood Venipuncture / Unknown 06/27/2025 1:51 AM CDT 06/27/2025 2:33 AM MANAGER REVIEW us Issac Rico MD CHEMISTRY ORDERABLES Final Resul t [facility] CLIA # [id number] [address] [facility] [place] [address] * (ABNORMAL) PROCALCITONIN (06/26/2025 10:36 AM CDT) PROCALCITONIN 0.10(H) <=0.08 ng/mL 06/26/2025 12:02 PM CDT [facility] Blood Venipuncture / Unknown 06/26/2025 10:36 AM CDT 06/26/2025 11:18 AM CDT Narrative [facility] - 06/26/2025 12:02 PM CDT The [...] Rico MD CHEMISTRY ORDERABLES Final Resul t [facility] CLIA # [id number] [id number] [place] [address] * CTA CHEST W AND/OR WO CONTRAST [...] See Interpretation IU/mL 06/24/2025 4:03 PM CDT [facility] Blood Venipuncture / Unknown 06/24/2025 3:35 PM CDT 06/24/2025 3:40 PM CDT [facility] - 06/24/2025 4:03 PM CDT Therapeutic Range: PT/DVT Heparin Protocol 0.3 - 0.7 IU/ml Cardiac Heparin Protocol 0.3 - 0.6 IU/ml The reference range for this test is specific to the anticoagulant and is not appropriate for monitoring patients on a DOAC protocol. Issac Rico MD HEMATOLOGY ORDERABLES Final Resu lt Performing Organization Address City/[facility]/ZIP Co de Phone Number [facility] CLIA # [id number] [address] [place], [place] [id number] * BLOOD CULTURE (06/24/2025 3:35 PM CDT) Only the most recent of4 resultswithin the time period is included. BLOOD CULTURE No growth 06/29/2025 4:41 PM MANAGER REVIEW [facility] Blood (Peripheral) Venipuncture / Unknown 06/24/2025 3:35 PM CDT 06/24/2025 3:43 PM CDT [facility] - 06/29/2025 4:41 PM MANAGER REVIEW Specimen processed with suboptimal blood volume collected. Issac Rico MD MICROBIOLOGY - GENERAL ORDERABLE S Final Result Performing Organization Address City/[facility]/ZIP Co de Phone Number [facility] CLIA # [id number] [address] [place] [address] * XR VIDEO SWALLOW W SPEECH (06/24/2025 [...] AM CDT Narrative 06/24/2025 3:34 PM CDT [facility] Cardiovascular Services Noninvasive Vascular Laboratory [address] [address] Noninvasive Vascular Lab Venous Exam Complete Lower Extremity Duplex Patient: Rom Youssef Study ID: US VENOUS DOPPLE Gender: M : 1960 Age: 65 Room: Height: Weight: BSA: Pt status: Inpatient Study Date: 06/24/2025 Study Time: 10:30:05 AM BSA: Ordering: Issac Rico Interpreting:Prince Yordan Job Press Feeder: EDIE Indications: LEG PAIN. Summary Impression: 1. [...] MANUEL - 06/24/25 - 10:51AM - DVT [facility] Vascular Lab is accredited with the Intersocietal Commission for the Accreditation of Vascular Laboratories (ICAVL) Prepared and Electronically Authenticated Prince Yordan Confirmed 06/24/2025 15:34 Procedure Note Prince Farr MD - 06/24/[address] [facility] Cardiovascular Services Noninvasive Vascular Laboratory [address] [place] [address] Noninvasive Vascular Lab Venous Exam Complete Lower Extremity Duplex Patient: Rom Youssef Study ID: US VENOUS DOPPLE Gender: M : 1960 Age: 65 Room: Height: Weight: BSA: Pt status: Inpatient Study Date: 06/24/2025 Study Time: 10:30:05 AM BSA: Ordering: Issac Rico Interpreting:Prince Yordan Job Press Feeder: EDIE Indications: LEG PAIN. Summary Impression: 1. [...] TYLER Kathleen 06/24/25 - 10:51AM - DVT [facility] Vascular Lab is accredited with theIntersocietal Commission for the Accreditation of Vascular Laboratories (ICAVL) Prepared and Electronically Authenticated Prince Yordan Confirmed 06/24/2025 15:34 us Issac Rico MD US ORDERABLES Final Result * US DOPPLER VENOUS ARM BILATERAL (06/24/2025 11:03 AM CDT) Anatomical Region Laterality Modality Upper Extremity Ultrasound 06/24/2025 10:1 1 AM CDT Narrative 06/24/2025 3:26 PM CDT [facility] Cardiovascular Services Noninvasive Vascular Laboratory [address] [address] Noninvasive Vascular Lab Venous Exam Complete Upper Extremity Duplex Patient: Rom Youssef Study ID: US DOPPLER VENOU Gender: M : 1960 Age: 65 Room: Height: Weight: BSA: Pt status: Inpatient Study Date: 06/24/2025 Study Time: 10:11:59 AM BSA: Ordering: Issac Rico Interpreting:Prince Yordan Job Press Feeder: EDIE Indications: Dvt. Summary Impression: 1. No [...] - 06/24/25 - 10:51 AM - SVT [facility] Vascular Lab is accredited with the Intersocietal Commission for the Accreditation of Vascular Laboratories (ICAVL) Prepared and Electronically Authenticated Prince Yordan Confirmed 06/24/2025 15:26 Procedure Note Prince Farr MD - 06/24/[address] [facility] Cardiovascular Services Noninvasive Vascular Laboratory [address] [place] [address] Noninvasive Vascular Lab Venous Exam Complete Upper Extremity Duplex Patient: Rom Youssef Study ID: US DOPPLER VENOU Gender: M : 1960 Age: 65 Room: Height: Weight: BSA: Pt status: Inpatient Study Date: 06/24/2025 Study Time: 10:11:59 AM BSA: Ordering: Issac Rico Interpreting:Prince Yordan Job Press Feeder: EDIE Indications: Dvt. Summary Impression: 1. No [...] - 06/24/25 - 10:51 AM - SVT [facility] Vascular Lab is accredited with theIntersonovant health Commission for the Accreditation of Vascular Laboratories (ICAVL) Prepared and Electronically Authenticated Prince Yordan Confirmed 06/24/2025 15:26 Issac Rico MD US ORDERABLES Final Result * PERIPHERAL BLOOD SMEAR PATHOLOGY INTERP (06/24/2025 3:38 AM CDT) [facility] PERIPHERAL BLOOD SMEAR INTERP See Interpretation Below 06/25/2025 3:29 PM CDT [facility] Comment: The red cells are normocytic and [...] Robinson Brannon MD 06/25/2025 3:29 PM CDT [facility] Blood Venipuncture / Unknown 06/24/2025 3:38 AM CDT 06/24/2025 4:15 AM CDT Issac Rico MD HEMATOLOGY ORDERABLES Final Resu lt [facility] CLIA # [id number] [address] [place] [address] [place] [address] * PHOSPHORUS (06/23/2025 2:49 AM CDT) Only the most recent of13 resultswithin the time period is included. [facility] PHOSPHORUS 4.0 2.5 - 4.5 mg/dL 06/23/2025 3:39 AM CDT [facility] Blood Venipuncture / Unknown 06/23/2025 2:49 AM CDT 06/23/2025 2:55 AM CDT Love Suad Gonzalez HOSPITAL INSURANCE CLERK CHEMISTRY ORDERABLES Final Result Performing Organization Address [facility] Co de Phone Number [facility] CLIA # [id number] [address] [address] [place], [place] [address] * MAGNESIUM LEVEL (06/23/2025 2:49 AM CDT) Only the most recent of16 resultswithin the time period is included. MAGNESIUM 2.3 1.6 - 2.4 mg/dL 06/23/2025 3:39 AM CDT [facility] Blood Venipuncture / Unknown 06/23/2025 2:49 AM CDT 06/23/2025 2:55 AM CDT Love Gonzalez HOSPITAL INSURANCE CLERK CHEMISTRY ORDERABLES Final Result Performing Organization Address [facility] Co de Phone Number [facility] CLIA # [id number] [address] [address] [place], [place] [address] * (ABNORMAL) COMPREHENSIVE METABOLIC PANEL (06/23/2025 2:49 AM CDT) Only the most recent of14 resultswithin the time period is included. SODIUM 140 136 - 145 mmol/L 06/23/2025 3:39 AM CDT [facility] POTASSIUM 3.6 3.5 - 5.1 mmol/L 06/23/2025 3:39 AM CDT [facility] CHLORIDE 104 98 - 107 mmol/L 06/23/2025 3:39 AM CDT [facility] CO2 23 22 - 29 mmol/L 06/23/2025 3:39 AM [facility] CALCIUM 8.8 8.8 - 10.2 mg/dL 06/23/2025 3:39 AM [facility] BUN 28(H) 8 - 23 mg/dL 06/23/2025 3:39 AM [facility] CREATININE 0.76 0.67 - 1.17 mg/dL 06/23/2025 3:39 AM [facility] GLUCOSE 195(H) 74 - 99 mg/dL 06/23/2025 3:39 AM [facility] TOTAL PROTEIN 6.9 6.4 - 8.3 g/dL 06/23/2025 3:39 AM [facility] ALBUMIN 2.9(L) 3.5 - 5.2 g/dL 06/23/2025 3:39 AM [facility] BILIRUBIN TOTAL 0.7 0.0 - 1.0 mg/dL 06/23/2025 3:39 AM [facility] ALKALINE PHOSPHATASE 153(H) 40 - 129 U/L 06/23/2025 3:39 AM [facility] AST 24 10 - 50 U/L 06/23/2025 3:39 AM [facility] ALT 23 <=50 U/L 06/23/2025 3:39 AM [facility] GFR >60 >=60 mL/min/1.7 3 sq meter 06/23/2025 3:39 AM [facility] Comment:eGFR calculated with 2020 CKD-EPI equation. Vegetarian diet, extremely high or low muscle mass, and may affect results. Cystatin C with Glomerular Filtration Rate is a suitable alternative for these patients. ANION GAP 13 9 - 20 mmol/L 06/23/2025 3:39 AM [facility] Blood Venipuncture / Unknown 06/23/2025 2:49 AM CDT 06/23/2025 2:55 AM CDT Love Gonzalez NP CHEMISTRY ORDERABLES Final Result [facility] CLIA # [id number] [address] [address] [place] [address] * (ABNORMAL) PTT (06/22/2025 6:33 PM CDT) Only the most recent of21 resultswithin the time period is included. PTT 23.3(L) 24.8 - 37.2 seconds 06/22/2025 7:11 PM CDT [facility] Blood Venipuncture / Unknown 06/22/2025 6:33 PM CDT 06/22/2025 6:41 PM CDT Narrative [facility] - 06/22/2025 7:11 PM CDT Therapeutic Range: Hi-level PE/DVT heparin protocol 80.1 - 95.0 sec Lo-level PE/DVT heparin protocol 70.1 - 85.0 sec Cardiac Heparin Protocol 70.1 - 100.0 sec us Prince Yordan SANTANA HEMATOLOGY ORDERABLES Final Resu lt Performing Organization Address [facility] Co de Phone Number [facility] CLIA # [id number] [address] [place] [address] * XR ABDOMEN FOR FEEDING TUBE 1 [...] FOR STUDY: Line Placement, Comment: IABP and [place] Chelsie DIAGNOSIS: ST elevation myocardial infarction (STEMI), [...] FOR STUDY: Line Placement, Comment: IABP and [place] Chelsie DIAGNOSIS: ST elevation myocardial infarction (STEMI), [...] * (ABNORMAL) TSH (06/21/2025 3:02 AM CDT) TSH 4.27(H) 0.27 - 4.20 uIU/mL 06/21/2025 11:00 AM CDT [facility] Blood Venipuncture / Unknown 06/21/2025 3:02 AM CDT 06/21/2025 3:18 AM CDT Anyi López STEEL ERECTING PUSHER CHEMISTRY ORDERABLES Final Result [facility] CLIA # [id number] [address] [address] [place] [address] * POC ACTIVATED CLOTTING TIME (06/19/2025 10:49 AM CDT) Only the most recent of7 resultswithin the time period is included. ACTIVATED CLOTTING TIME POC 135 116 - 140 sec 06/19/2025 10:49 AM CDT [facility] Blood 06/19/2025 10:4 9 AM CDT 06/19/2025 6:53 PM CDT Zachary Hamilton MD POINT OF CARE TESTING Final Res ult Performing Organization Address [facility] Co de Phone Number [facility] CLIA # [id number] [address] [address] [place] [address] * (ABNORMAL) POTASSIUM LEVEL (06/18/2025 5:02 PM CDT) Only the most recent of3 resultswithin the time period is included. Pathologist [facility] POTASSIUM 3.4(L) 3.5 - 5.1 mmol/L 06/18/2025 5:38 PM CDT [facility] Blood Arterial / Unknown 5:02 PM CDT 06/18/2025 5:14 PM CDT Zachary Hamilton MD CHEMISTRY ORDERABLES Final Resu lt Performing Organization Address [facility] de Phone Number [facility] CLIA # [id number] [address] [address] [place] [address] * SPUTUM CULTURE WITH GRAM STAIN (06/18/2025 12:11 PM CDT) Only the most recent of2 resultswithin the time period is included. Pathologist [facility] CULTURE No pathogens isolated. Normal respiratory alon reduced. 06/20/2025 9:39 AM CDT [facility] GRAM STAIN Smear contains </=10 squamous epithelial cells per low power field 06/20/2025 9:39 AM CDT [facility] GRAM STAIN <25 PMN WBC/LPF 9:39 AM CDT [facility] GRAM STAIN No organisms observed 06/20/2025 9:39 AM CDT [facility] Sputum SPUTUM SPECIMEN OBTAINED BY ASPIRATION / Unknown Collection / Unknown 06/18/2025 12:11 PM CDT 06/18/2025 12:17 PM CDT Zachary Haimlton MD MICROBIOLOGY - GENERAL ORDERABL ES Final Result Performing Organization Address City/[facility]/ZIP Co de Phone Number [facility] CLIA # [id number] [address] [address] [place] [address] * POC LACTIC ACID (06/18/2025 7:15 AM CDT) Only the most recent of39 resultswithin the time period is included. Pathologist [facility] LACTIC ACID POC 0.8 <=2.0 mmol/L 06/18/2025 7:15 AM CDT [facility] SPECIMEN SOURCE, GASES POC Arterial 06/18/2025 7:15 AM CDT [facility] SITE POC No Charge 06/18/2025 7:15 AM CDT [facility] Blood 06/18/2025 7:15 AM CDT 06/18/2025 7:17 AM CDT Narrative [facility] - 06/18/2025 7:15 AM CDT References ranges displayed are for Arterial samples. Zachary Hamilton MD POINT OF CARE TESTING Final Res ult Performing Organization Address City/[facility]/ZIP Co de Phone Number [facility] CLIA # [id number] [address] [address] * (ABNORMAL) BLOOD GAS ARTERIAL (06/18/2025 7:15 AM CDT) Only the most recent of36 resultswithin the time period is included. Pathologist [facility] PH BLOOD POC 7.45 7.35 - 7.45 06/18/2025 7:15 AM [facility] PCO2 POC 35 35 - 45 mm Hg 06/18/2025 7:15 AM [facility] PO2 POC 131(H) 80 - 105 mm Hg 06/18/2025 7:15 AM [facility] HCO3 (CALC) POC 24 22 - 26 mmol/L 06/18/2025 7:15 AM [facility] HEMOGLOBIN POC 9.6(L) 12.0 - 18.0 g/dL 06/18/2025 7:15 AM [facility] BASE EXCESS POC 0 -2 - 3 mmol/L 06/18/2025 7:15 AM [facility] O2 SATURATION POC 99(H) 95 - 98 % 7:15 AM [facility] SODIUM POC 140 138 - 146 mmol/L 06/18/2025 7:15 AM [facility] POTASSIUM POC 4.0 3.5 - 4.9 mmol/L 06/18/2025 7:15 AM [facility] HEMATOCRIT POC 29(L) 38 - 51 % 06/18/2025 7:15 AM [facility] PH TEMP CORRECT 7.45 7.35 - 7.45 06/18/2025 7:15 AM [facility] PCO2 TEMP CORRECT 35 35 - 45 mm Hg 06/18/2025 7:15 AM [facility] PO2 TEMP CORRECT 131(H) 80 - 105 mm Hg 06/18/2025 7:15 AM [facility] SPECIMEN SOURCE, GASES POC Arterial 06/18/2025 7:15 AM [facility] CALCIUM IONIZED POC 4.6(L) 4.8 - 5.2 mg/dL 06/18/2025 7:15 AM [facility] TCO2 (CALC) POC 25 23 - 27 mmol/L 06/18/2025 7:15 AM [facility] FIO2 45.0 21.0 - 100.0 % 06/18/2025 7:15 AM CDT [facility] Comment:FIO2 values reported <21.0 indicate O2 flow in Liters/minute. Values >/= 21.0 indicate percent O2. P/F RATIO POC 291 06/18/2025 7:15 AM CDT [facility] Comment: P/F Ratio Interpretation ARDS SEVERITY PaO2/FiO2 Mild 200-300 Moderate 100-200 Severe <100 PEEP POC 12 06/18/2025 7:15 AM CDT [facility] PUNC SITE POC No Charge 06/18/2025 7:15 AM CDT [facility] VENT MODE POC PRVC 06/18/2025 7:15 AM CDT [facility] PATIENT'S TEMPERATURE POC 37.0 degrees 06/18/2025 7:15 AM CDT [facility] Blood, arterial 06/18/2025 7 :15 AM CDT 06/18/2025 7:17 AM CDT us Zachary Hamilton MD ABG ORDERABLES Final Result Performing Organization Address City/[facility]/ZIP Co de Phone Number [facility] CLIA # [id number] [address] [place] [address] * (ABNORMAL) HAPTOGLOBIN (06/18/2025 3:36 AM CDT) Only the most recent of7 resultswithin the time period is included. HAPTOGLOBIN 305(H) 30 - 200 mg/dL 06/18/2025 4:20 AM CDT [facility] Blood Arterial / Unknown 3:36 AM CDT 06/18/2025 3:39 AM CDT us Zenaida Ray MD CHEMISTRY ORDERABLES Final Resul t [facility] CLIA # [id number] [address] [place] [address] [place] [address] * (ABNORMAL) BLOOD GAS,(INCL. H+H, LYTES, GLUC) (06/17/2025 3:38 PM CDT) Only the most recent of3 resultswithin the time period is included. PH BLOOD POC 7.47(H) 7.35 - 7.45 06/17/2025 3:38 PM CDT [facility] PCO2 POC 35 35 - 45 mm Hg 06/17/2025 3:38 PM CDT [facility] PO2 POC 70(L) 80 - 105 mm Hg 06/17/2025 3:38 PM CDT [facility] TCO2 (CALC) POC 27 23 - 27 mmol/L 06/17/2025 3:38 PM [facility] HCO3 (CALC) POC 26 22 - 26 mmol/L 06/17/2025 3:38 PM T [facility] O2 SATURATION POC 98 95 - 98 % 06/17/2025 3:38 PM CDT [facility] BASE EXCESS POC 2 -2 - 3 mmol/L 06/17/2025 3:38 PM [facility] HEMOGLOBIN POC 9.0(L) 12.0 - 18.0 g/dL 06/17/2025 3:38 PM [facility] HEMATOCRIT POC 27(L) 38 - 51 % 06/17/2025 3:38 PM CDT [facility] GLUCOSE POC 139(H) 74 - 99 mg/dL 06/17/2025 3:38 PM T [facility] SODIUM POC 139 138 - 146 mmol/L 06/17/2025 3:38 PM [facility] POTASSIUM POC 3.3(L) 3.5 - 4.9 mmol/L 06/17/2025 3:38 PM [facility] CALCIUM IONIZED POC 4.7(L) 4.8 - 5.2 mg/dL 06/17/2025 3:38 PM CDT [facility] PH TEMP CORRECT 7.47(H) 7.35 - 7.45 06/17/20 3:38 PM CDT [facility] PCO2 TEMP CORRECT 35 35 - 45 mm Hg 06/17/2025 3:38 PM CDT [facility] PO2 TEMP CORRECT 70(L) 80 - 105 mm Hg 06/17/2025 3:38 PM CDT [facility] SPECIMEN SOURCE, GASES POC Arterial 06/17/2025 3:38 PM CDT [facility] PATIENT'S TEMPERATURE POC 37.0 degrees 06/17/2025 3:38 PM CDT [facility] PUNC SITE POC No Charge 06/17/2025 3:38 PM CDT [facility] Blood, arterial 06/17/2025 3 :38 PM CDT 06/17/2025 3:39 PM CDT us Zachary Hamilton MD ABG ORDERABLES Final Result [facility] CLIA # [id number] [address] [place] [address] * XR ABDOMEN 1 VW (06/17/2025 10:29 [...] INTERFACE SYSTEM - 06/16/2025 2:42 PM CDT [facility] Cardiovascular Services Echocardiography Laboratory [address] [address] Limited Transthoracic Echocardiography Patient: Mikael Study ID: ECHO JUAN Parnell Gender: M : 1960 Age: 65 Room: [facility] Study 06/16/2025 Pt Inpatient Date: Status: Study 01:53:44 PM CSN #: [id number] Time: Ordering:Zachary Hamilton Job Press Feeder: LVO Indications and History: Assess cardiac function [...] (H) gina values outside specified reference range. [facility] Echo Labs are accredited with the Intersocietal Accreditation Commission - Echocardiography. Prepared and Electronically Authenticated Rudy Callahan MD Confirmed 06/16/2025 14:42 Procedure Note Rudy Callahan MD - 06/16/[address] [facility] Echocardiography Laboratory [address] [address] Limited Transthoracic Echocardiography Patient: Mikael Study ID: ECHO LIMITED LALITO Parnell Gender: M : 1960 Age: 65 Room: [facility] 06/16/2025 Pt Inpatient Date: Status: Study 01:53:44 PM CSN #: [id number] Time: Ordering:Zachary Hamilton Job Press Feeder: LVO Indications and History: Assess cardiac function [...] (H) gina values outside specified reference range. [facility] Echo Labs are accredited with theIntersocietal Accreditation Commission - Echocardiography. Prepared and Electronically Authenticated Rudy Callahan MD Confirmed 06/16/2025 14:42 Zachary Hamilton MD US ORDERABLES Final Result Performing Organization Address City/[facility]/ZIP Co de Phone Number INTERFACE SYSTEM Refer to clinic/hospital department * (ABNORMAL) TROPONIN (06/16/2025 12:20 PM CDT) Only the most recent of10 resultswithin the time period is included. [facility] TROPONIN T, 5TH GEN 3,305(HH) <=15 ng/L 06/16/2025 12:57 PM CDT [facility] Blood Venipuncture / Unknown 06/16/2025 12:20 PM CDT 06/16/2025 12:24 PM CDT Narrative [facility] - 06/16/2025 12:57 PM CDT Troponin elevated. Prince Yordan SANTANA CHEMISTRY ORDERABLES Final Resul t Performing Organization Address [facility] de Phone Number [facility] CLIA # [id number] [address] [place] [address] * (ABNORMAL) OXIMETRY (06/16/2025 4:49 AM CDT) Only the most recent of3 resultswithin the time period is included. [facility] OXYHEMOGLOBIN POC 67.1 40.0 - 70.0 % 06/16/2025 4:49 AM CDT [facility] HEMOGLOBIN POC 9.2(L) 12.0 - 18.0 g/dL 06/16/2025 4:49 AM T [facility] O2 SATURATION POC 68 40 - 70 % 025 4:49 AM CDT [facility] SPECIMEN SOURCE, GASES POC Venous Mixed 06/16/2025 4:49 AM CDT [facility] SAMPLE SITE, GASES POC N-SY 06/16/2025 4:49 AM CDT [facility] SERVICES [facility] SITE POC No Charge 06/16/2025 4:49 AM CDT [facility] Blood 06/16/2025 4:49 AM CDT 06/16/2025 4:51 AM CDT Zachary Hamilton MD ABG ORDERABLES Final Result Performing Organization Address City/[facility]/ZIP Co de Phone Number [facility] CLIA # [id number] [address] [address] * TRANSFUSE RED BLOOD CELLS (06/16/2025 1:10 AM CDT) us Zachary Hamilton MD BLOOD TRANSFUSION ORDERABLES Fi nal Result * PREPARE RED BLOOD CELLS (06/15/2025 5:31 PM CDT) Only the most recent of5 resultswithin the time period is included. [facility] COMPONENT TYPE [id number] [facility] [place] COMPONENT IDENTIFICATION [id number] [facility] [place] UNIT ABO O [facility] [place] UNIT RH POS [facility] [place] CROSSMATCH Compatible [facility] [place] COMPONENT STATUS Returned [facility] [place] COMPONENT EXPIRATION DATE/TIME [id number] [facility] [place] COMPONENT CODING SYSTEM 5100 [facility] [place] VOLUME, BLOOD PRODUCT 350 [facility] [place] 06/15/2025 5:31 PM CDT us Zachary Hamilton MD LAB TRANSFUSION ORDERABLES Edit ed Result - Final [facility] [place] CLIA#[id number] [address] [place] [address], * (ABNORMAL) LACTATE DEHYDROGENASE (06/15/2025 4:03 AM CDT) Only the most recent of4 resultswithin the time period is included. LD (LACTATE DEHYDROGENASE) 666(H) 135 - 225 U/L 06/15/2025 5:46 AM CDT [facility] Blood Venipuncture / Unknown 06/15/2025 4:03 AM CDT 06/15/2025 4:10 AM CDT us Zenaida Ray MD CHEMISTRY ORDERABLES Final Resul t [id number] [address] [place] [phone] * (ABNORMAL) LIPID PANEL (06/14/2025 11:23 AM CDT) CHOLESTEROL 85 <200 mg/dL 06/14/2025 12:36 PM CDT [facility] TRIGLYCERIDE 152(H) <150 mg/dL 06/14/2025 12:36 PM CDT [facility] HDL 23(L) 40 - 59 mg/dL 06/14/2025 12:36 PM CDT [facility] LDL CALCULATED 32 <100 mg/dL 06/14/2025 12:36 PM CDT [facility] NON-HDL CHOLESTEROL 62 <130 mg/dL 06/14/2025 12:36 PM CDT [facility] Blood Arterial / Unknown 11:23 AM CDT 06/14/2025 11:35 AM CDT Narrative [facility] - 06/14/2025 12:36 PM CDT TOTAL CHOLESTEROL [...] ORDERABLES Final Resu lt Performing Organization Address [facility] Co de Phone Number [facility] CLIA # [id number] [address] [place] [phone] * (ABNORMAL) VANCOMYCIN LEVEL TROUGH (06/14/2025 10:13 AM CDT) Pathologist [facility] VANCOMYCIN, TROUGH 8.2(L) 10.0 - 17.0 ug/mL 06/14/2025 10:56 AM CDT [facility] Blood Collection / Unknown 06/14/2025 10:13 AM CDT 06/14/2025 10:38 AM CDT Zachary Hamilton MD CHEMISTRY ORDERABLES Final Resu lt Performing Organization Address [facility] Co de Phone Number [facility] CLIA # [id number] [address] [place] [address] * TYPE AND SCREEN (06/14/2025 8:44 AM CDT) Only the most recent of2 resultswithin the time period is included. ABO GROUP O 06/14/2025 10:03 AM CDT [facility] [place] RH (D) TYPE Positive 06/14/2025 10:03 AM CDT [facility] [place] ANTIBODY SCREEN Negative 06/14/2025 10:03 AM CDT [facility] [place] Blood Arterial / Unknown 8:44 AM CDT 06/14/2025 8:50 AM CDT Zachary Hamilton MD BLOOD BANK ORDERABLES Edited Re sult - Final Performing Organization Address [facility] Co de Phone Number [facility] CLIA#[id number] [address] [place] [address], * (ABNORMAL) HEMOGLOBIN A1C (06/14/2025 3:08 AM CDT) HEMOGLOBIN A1C 6.3(H) <=5.6 % 06/16/2025 11:21 AM CDT [facility] EST. AVG GLUCOSE, A1C 134 mg/dL 06/16/2025 11:21 AM CDT [facility] Blood Venipuncture / Unknown 06/14/2025 3:08 AM CDT 06/14/2025 3:14 AM CDT Narrative [facility] - 06/16/2025 11:21 AM CDT HGB A1C INTERPRETATION NORMAL: <5.7% PRE-DIABETES: 5.7 - 6.4% DIABETES: 6.5% OR GREATER Zachary Hamilton MD CHEMISTRY ORDERABLES Final Resu lt Performing Organization Address [facility] Co de Phone Number [facility] CLIA # [id number] [address] [address] * (ABNORMAL) PNEUMONIA PATHOGEN PCR PANEL (06/13/2025 5:50 PM CDT) Only the most recent of2 resultswithin the time period is included. Haemophilus influenzae by PCR DETECTED( A) Not Detected 06/13/2025 9:01 PM CDT [facility] Streptococcus pneumoniae by PCR DETECTED( A) Not Detected 06/13/2025 9:01 PM CDT [facility] BAL (Lung, RML) Collection / Unknown 06/13/2025 5:50 PM CDT 06/13/2025 6:27 PM CDT Narrative [facility] - 06/13/2025 9:01 PM CDT NOTE: Per the luster repairer, this current lot of reagent may be insensitive for the full detection of adenoviruses. If adenovirus is within the differential diagnosis, the specimen may be submitted to a reference laboratory for further testing. If desired, order [id number] Lab Test, stating Adenovirus by PCR testing [...] MICROBIOLOGY - GENERAL ORDERABLE S Final Result [facility] CLIA # [id number] [address] [place] [address] [place] [address] * RESPIRATORY CULTURE WITH GRAM STAIN (06/13/2025 5:50 PM CDT) CULTURE <=1000 cfu/mL Normal upper respiratory alon 06/15/2025 11:44 AM CDT [facility] GRAM STAIN No organisms observed 06/15/2025 11:44 AM CDT [facility] BAL (Lung, RML) Collection / Unknown 06/13/2025 5:50 PM CDT 06/13/2025 6:39 PM CDT Zenaida Ray MD MICROBIOLOGY - GENERAL ORDERABLE S Final Result [facility] CLIA # [id number] [address] [place] [address] * LEFT HEART CATH, INTRA AORTIC BALLOON PUMP REMOVAL, INTRA AORTIC BALLOON PUMP INSERTION, PERCUTANEOUS CORONARY INTERVENTION, IVUS-CORONARY INTRAVASCULAR (06/13/2025 10:58 AM CDT) Only the most recent of2 resultswithin the time period is included. Narrative [facility] - 06/13/2025 11:13 AM CDT Table formatting from the original result was not included. Cardiac Catheterization Report [place], [place] PATIENT: Rom Youssef PATIENT NUMBER: [id number] BIRTHDATE: 1960 DATE: 06/13/2025 TIME: 11:13 AM [...] was monitored throughout the procedure by myself, Chief Risk Officer staff. Blood pressure, oxygen level, heart rate [...] pump was then removed via the 8 Syrian sheath. 6 Syrian JR4 catheter to engage the right coronary artery. Cine angiogram obtained. Subsequently, 6 Syrian JR4 guide catheter engaged the right coronary artery. Additional heparin utilized for therapeutic ACT (refer to medication documentation for details). 0.014 run-through wire then advanced past in-stent thrombosis lesion. 3 x 12 mm balloon used for dilatation with hindu of flow. 4 mm NC balloon angioplasty [...] thrombus. Otherwise, excellent angiographic result obtained. 6 Syrian JL4 catheter utilized to engage the left coronary system and obtain cine angiograms. 6 Syrian JR4 used to obtain the left heart hemodynamic parameters. A new 40 cc intra-aortic balloon pump then again advanced into the aorta through the 8 Syrian sheath. This was placed at 1:1 augmentation [...] began. The augmentation was 1:1. PCI RISK [facility] Frailty Score: Terminally Ill (Life expectancy < 6 months). NYHA Class: Class II: Slight limitation of physical activity. Comfortable at rest, but ordinary physical activity results in symptoms of HF. (GONZALEZ, walking more than 2 blocks would cause GONZALEZ) CV Instability: persistent ischemic symptoms (chest pain, LUIS). PAD: Unknown. Cerebrovascular Disease History: Unknown us Prince Yordan SANTANA CUP CATH ORDERABLES Final Result [facility] [id number] [facility] [address] [place] [address], * INSERT MIDLINE IV (06/12/2025 8:49 PM CDT) Only the most recent of2 resultswithin the time period is included. Narrative Rufina Pelayo RN - 06/12/2025 8:49 PM CDT Rufina Pelayo RN 06/12/2025 8:52 PM VASCULAR ACCESS NOTE Midline PATIENT NAME: Rom Youssef DATE OF : 1960 CSN: [id number] DATE: 06/12/2025 Room: [address] [place] [address] Admit Date: 06/12/2025 Hospital day: LOS: 0 [...] K/uL 06/12/2025 5:52 PM CDT [facility] RBC 3.37(L) 4.60 - 6.20 M/uL 06/12/2025 5:52 PM CDT [facility] HEMOGLOBIN 10.8(L) 14.0 - 18.0 g/dL 06/12/2025 5:52 PM CDT [facility] HEMATOCRIT 31.7(L) 41.0 - 53.0 % 06/12/2025 5:52 PM CDT [facility] MCV 94.1 84.0 - 103.0 fL 06/12/2025 5:52 PM CDT [facility] MCH 32.0 27.0 - 34.0 pg 06/12/2025 5:52 PM CDT [facility] MCHC 34.1 30.0 - 35.0 g/dL 06/12/2025 5:52 PM CDT [facility] PLATELETS 204 140 - 440 K/uL 06/12/2025 5:52 PM CDT [facility] MPV 9.4 8.9 - 12.8 fL 06/12/2025 5:52 PM CDT [facility] RDW 13.9 11.0 - 14.5 % 06/12/2025 5:52 PM CDT [facility] RDW-STDEV 48.3 37.0 - 54.0 fL 06/12/2025 5:52 PM CDT [facility] Blood Arterial / Unknown 5:36 PM CDT 06/12/2025 5:46 PM CDT us Zenaida Ray MD HEMATOLOGY ORDERABLES Final Resu lt [facility] CLIA # [id number] [facility] [address] [place] [address] * VERIFICATION BLOOD GROUP (06/12/2025 4:20 PM CDT) ABO GROUP O 06/12/2025 4:46 PM CDT [facility] RH (D) TYPE Positive 06/12/2025 4:46 PM CDT [facility] Blood Arterial / Unknown 4:20 PM CDT 06/12/2025 4:28 PM CDT Charles Magana MD BLOOD BANK ORDERABLES Final Result Performing Organization Address [facility]/ZIP Co de Phone Number [facility] CLIA#[id number] [facility] [place] [address], * (ABNORMAL) HEPATIC FUNCTION PANEL (06/12/2025 2:45 PM CDT) Pathologist [facility] TOTAL PROTEIN 5.5(L) 6.4 - 8.3 g/dL 06/12/2025 3:43 PM CDT [facility] ALBUMIN 3.0(L) 3.5 - 5.2 g/dL 06/12/2025 3:43 PM CDT [facility] BILIRUBIN TOTAL 0.5 0.0 - 1.0 mg/dL 06/12/2025 3:43 PM CDT [facility] BILIRUBIN DIRECT 0.2 0.0 - 0.3 mg/dL 06/12/2025 3:43 PM CDT [facility] ALKALINE PHOSPHATASE 81 40 - 129 U/L 06/12/2025 3:43 PM CDT [facility] AST 326(H) 10 - 50 U/L 06/12/2025 3:43 PM CDT [facility] ALT 170(H) <=50 U/L 06/12/2025 3:43 PM CDT [facility] Blood Arterial / Unknown 2:45 PM CDT 06/12/2025 2:59 PM CDT Zenaida Ray MD CHEMISTRY ORDERABLES Final Resul t Performing Organization Address [facility]/ZIP Co de Phone Number [facility] CLIA # [id number] [address] [address] * XR PELVIS 1 OR 2 VW [...] catheter. Pelvic radiograph is otherwise unremarkable. Zenaida Ray MD DIAGNOSTIC IMAGING ORDERABLES Fi nal Result * ECHO COMPLETE - CONTRAST AND STRAIN IF INDICATED (06/12/2025 6:25 AM CDT) EJECTION FRACTION 48 INTERFACE SYSTEM 06/12/2025 5:49 AM CDT Narrative INTERFACE SYSTEM - 06/12/2025 8:50 AM CDT [facility] Echocardiography Laboratory [address] [address] Transthoracic Echocardiography Patient: Mikael Study ID: KACI Parnell Gender: M : 1960 Age: 65 Room: [facility] 06/12/2025 Pt Inpatient Date: Status: Study 05:49:12 AM [facility] #: [id number] Time: Ordering:Prince Yordan Job Press Feeder: LEVI Indications and History: IN/ACS; Initial evaluation post IN. Labs, prior tests, procedures, and surgery: Catheterization [...] study is available for comparison. 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 Procedure: A transthoracic echocardiogram was performed. Image [...] (H) gina values outside specified reference range. [facility] Echo Labs are accredited with the [facility] Accreditation Commission - Echocardiography. Prepared and Electronically Authenticated Prince Yordan Confirmed 06/12/2025 08:50 Procedure Note Prince Farr MD - 06/12/[address] [facility] Echocardiography Laboratory [address] [place] [address] Transthoracic Echocardiography Patient: Mikael Study ID: ECHO LOIDA Parnell Gender: M : 1960 Age: 65 Room: [facility] Study 06/12/2025 Pt Inpatient Date: Status: Study 05:49:12 AM CSN #: [id number] Time: Ordering:Prince Yordan Job Press Feeder: LEVI Indications and History: IN/ACS; Initial evaluation post IN. 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 Procedure: A transthoracic echocardiogram wasperformed. Image quality [...] (H) gina values outside specified reference range. [facility] Echo Labs are accredited with theIntersocietal Accreditation Commission - Echocardiography. Prepared and Electronically Authenticated Prince Elysia Farr 06/12/2025 08:50 us Prince Yordan SANTANA ORDERABLES Final Result INTERFACE SYSTEM Refer to clinic/hospital department * EXTRA TUBE (URINE ALVES) (06/12/2025 6:19 AM CDT) Urine (Urine, indwelling (Orta) catheter) Collection / Unknown 06/12/2025 6:19 AM CDT 06/12/2025 6:24 AM CDT Love Gonzalez HOSPITAL INSURANCE CLERK URINE ORDERABLES Elsie solo Result [facility] # [id number] [address] [place] [address] * (ABNORMAL) DRUG SCREEN, URINE (06/12/2025 6:19 AM CDT) [facility] AMPHETAMINE QUAL, URINE Negative Negative 06/12/2025 7:15 AM CDT [facility] BARBITURATE QUAL, URINE Negative Negative 06/12/2025 7:15 AM CDT [facility] BENZODIAZEPINE QUAL, URINE Presumptive Positive(A) Negative 06/12/2025 7:15 AM CDT [facility] COCAINE QUAL URINE Negative Negative 06/12/2025 7:15 AM CDT [facility] OPIATE QUAL, URINE Negative Negative 06/12/2025 7:15 AM CDT [facility] CANNABINOIDS QUAL, URINE Presumptive Positive(A) Negative 06/12/2025 7:15 AM CDT [facility] OXYCODONE QUAL, URINE Negative Negative 06/12/2025 7:15 AM CDT [facility] METHADONE QUAL, URINE Negative Negative 06/12/2025 7:15 AM CDT [facility] FENTANYL QUAL, URINE Presumptive Positive(A) Negative 06/12/2025 7:15 AM CDT [facility] CREATININE, URINE 19.2(L) 40.0 - 278.0 mg/dL 06/12/2025 7:15 AM CDT [facility] Comment:Reference Range vari es with fluid intake and diet. Urine (Urine, indwelling (Orta) catheter) Collection / Unknown 06/12/2025 6:19 AM CDT 06/12/2025 6:25 AM CDT [facility] - 06/12/2025 7:15 AM CDT [...] Negative 300 ng/mL Fentanyl Negative 5 ng/mL Love Gonzalez NP URINE ORDERABLES Elsie solo Result [facility] CLIA # [id number] [address] [place] [address] * (ABNORMAL) URINALYSIS WITH REFLEX MICROSCOPIC (06/12/2025 6:19 AM CDT) COLOR UA Pale Yellow Pale to Dark Yellow 06/12/2025 6:36 AM T [facility] CLARITY UA Clear Clear 06/12/2025 6:36 AM T [facility] SPECIFIC GRAVITY UA 1.022 1.003 - 1.035 06/12/2025 6:36 AM T [facility] PH UA 6.5 5.0 - 8.0 06/12/2025 6:36 AM T [facility] LEUKOCYTE ESTERASE UA Negative Negative 06/12/2025 6:36 AM [facility] NITRITE UA Negative Negative 06/12/2025 6:36 AM [facility] PROTEIN UA 2+(A) Negative 06/12/2025 6:36 AM T [facility] GLUCOSE UA 4+(A) Negative 06/12/2025 6:36 AM CDT [facility] KETONES UA Negative Negative 06/12/2025 6:36 AM CDT [facility] UROBILINOGEN UA <2.0 <2.0 mg/dL 6:36 AM CDT [facility] BILIRUBIN UA Negative Negative 06/12/2025 6:36 AM CDT [facility] BLOOD UA 3+(A) Negative 06/12/2025 6:36 AM CDT [facility] WBC UA 3-5(A) 0 - 2 /hpf 06/12/2025 6:36 AM CDT [facility] RBC UA 26-50(A) 0 - 2 /hpf 06/12/2025 6:36 AM CDT [facility] BACTERIA UA Negative Negative /hpf 06/12/2025 6:36 AM CDT [facility] EPITHELIAL CELLS, URINE 0-5 0 - 5 /hpf 06/12/2025 6:36 AM CDT [facility] HYALINE CAST 6-10(A) None Seen, 0-2 /lpf 06/12/2025 6:36 AM CDT [facility] Urine (Urine, indwelling (Orta) catheter) Collection / Unknown 06/12/2025 6:19 AM CDT 06/12/2025 6:24 AM CDT Love Gonzalez HOSPITAL INSURANCE CLERK URINE ORDERABLES Elsie l Result [facility] CLIA # [id number] [address] [place] [address] [place] [address] * (ABNORMAL) LACTIC ACID (06/12/2025 5:42 AM CDT) LACTIC ACID 11.5(HH) <=2.0 mmol/L 06/12/2025 6:35 AM CDT [facility] Blood Arterial / Unknown 5:42 AM CDT 06/12/2025 5:52 AM CDT us Charles Magana MD CHEMISTRY ORDERABLES F inal Result [facility] CLIA # [id number] [address] [address] * KETONES/BETA HYDROXYBUTYRATE (06/12/2025 5:42 AM CDT) BETA HYDROXYBUTYRATE 0.1 0.0 - 0.3 mmol/L 06/12/2025 9:51 AM CDT [facility] Blood Arterial / Unknown 5:42 AM CDT 06/12/2025 5:55 AM CDT us Zenaida Ray MD CHEMISTRY ORDERABLES Final Resul t Performing Organization Address [facility] Co de Phone Number [facility] CLIA # [id number] [address] [address] * TROPONIN BASELINE, 5TH GEN (06/11/2025 11:25 PM CDT) TROPONIN T, BASELINE 5TH GEN 6 <=15 ng/L 06/11/2025 11:53 PM CDT [facility] Blood BLOOD SPECIMEN / Unknown Collection / Unknown 06/11/2025 11:25 PM CDT 06/11/2025 11:34 PM CDT Narrative [facility] - 06/11/2025 11:53 PM CDT Troponin Detectable but normal range. us Luis Ramos MD CHEMISTRY ORDERABLES Final Result Performing Organization Address City/[facility]/ZIP Co de Phone Number [facility] CLIA # [id number] [address] [place] [address] * (ABNORMAL) PROTIME-INR (06/11/2025 11:25 PM CDT) Pathologist [facility] PROTIME 12.0(L) 12.1 - 14.3 Seconds 06/11/2025 11:48 PM CDT [facility] INR 0.9 0.9 - 1.1 06/11/2025 11:48 PM CDT [facility] Blood BLOOD SPECIMEN / Unknown Collection / Unknown 06/11/2025 11:25 PM CDT 06/11/2025 11:34 PM CDT us Luis Ramos MD HEMATOLOGY ORDERABLES Elsie l Result [facility] CLIA # [id number] [address] [place] [address] * D-DIMER (06/11/2025 11:25 PM CDT) [facility] D-DIMER QUANT 0.21 <0.50 ug/mL FEU 06/11/2025 11:49 PM CDT [facility] Blood BLOOD SPECIMEN / Unknown Collection / Unknown 06/11/2025 11:25 PM CDT 06/11/2025 11:34 PM CDT [facility] - 06/11/2025 11:49 PM CDT [...] FEU us Luis Ramos MD HEMATOLOGY ORDERABLES Elsie l Result Performing Organization Address City/[facility]/ZIP Co de Phone Number [facility] CLIA # [id number] [address] [place] [address] * BRAIN NATRIURETIC PEPTIDE, BNP OR PROBNP (06/11/2025 11:25 PM CDT) PROBNP, N TERMINAL 46 0 - 125 pg/mL 06/11/2025 11:53 PM CDT [facility] Comment: INTERPRETIVE COMMENT based on diagnosis: [...] CHEMISTRY ORDERABLES Final Result Performing Organization Address [facility] Co de Phone Number [facility] CLIA # [id number] [address] [place] [address] * Critical Care (06/11/2025 11:17 PM CDT) [...] brain injury and Alternatives discussed: No treatment Institute protocol: Procedure explained and questions answered to [...] from Last 3 Months Insurance [place] (INTERNAL) [facility] Plans RX [employer] Commercial RX [place] Commercial Advance Directives For more information, please contact: [phone] Documents on File Type Date Recorded Patient 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
--- NOTE | 2025-08-15 19:17 | ECG_ITS ---
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: : 1960 Requested By: Jose Godinez Order Number: [id number] Reading MD: LEVI SIMONS Measurements Intervals [place] Rate: 77 P: 23 MS: 159 QRS: -43 QRSD: 97 T: -52 QT: 377 QTc: 427 Interpretive Statements SINUS RHYTHM Compared to ECG 07/11/2025 13:55:20 Left-axis deviation no longer present Myocardial infarct finding no longer present T-wave abnormality no longer present Possible ischemia no longer present Electronically Signed On 08-17-2025 12:01:05 CLOTH SHEARING SUPERVISOR by LEVI SIMONS [email or web address]
--- NOTE | 2025-08-15 19:26 | XRR_ITS ---
PROCEDURE INFORMATION: Exam: XR Chest Exam date and time: 08/15/2025 7:36 PM Age: 65 years old Clinical indication: Pain; Chest pressure; Prior surgery; Surgery date: 1-6 months; Surgery type: Coronary stent; Additional info: Cp TECHNIQUE: Imaging protocol: Radiologic exam of the chest. Views: 1 view. Total images: 3 COMPARISON: 1. CR (CHEST, ) 07/11/2025 11:46 AM 2. CR (CHEST, ) 07/03/2025 7:00 PM FINDINGS: Lungs: Reticular interstitial thickening, likely chronic, without focal alveolar consolidation. No lung consolidation, mass, or acute pulmonary abnormality identified. Pleural spaces: No pathologic pleural thickening, significant pleural effusion or pneumothorax. Heart/Mediastinum: Normal heart size. Vasculature: Aorta mild atherosclerotic calcification. Bones/joints: Moderate generalized degenerative changes of the vertebral column, including multilevel osteophytes, degenerative disc height loss, and facet arthrosis, consistent with patient age. Mild age-appropriate degenerative changes at the AC and glenohumeral joints; osteoarthritis. Soft tissues: Soft tissues are normal as visualized, demonstrating no masses or swelling/induration. XR/XR chest 1V portable [id number] IMPRESSION: 1. No new acute cardiopulmonary or adverse interval change radiographically. Chronic findings; stable. 2. Reticular interstitial thickening, likely chronic, without focal alveolar consolidation. Nonspecific; most consistent with chronic fibrotic interstitial change, age-related/nonspecific. Recommend correlation with clinical history; pulmonary function tests if clinically indicated. 3. Moderate age-appropriate degenerative spinal changes. Other chronic/non-acute findings as described above.
--- NOTE | 2025-08-15 19:26 | CTR_ITS ---
PROCEDURE INFORMATION: Exam: CTA Chest With Contrast Exam date and time: 08/15/2025 8:06 PM Age: 65 years old Clinical indication: Chest pressure; Prior surgery; Surgery date: 6+ months; Surgery type: Coronary stents; C/O chest pain. Recent mi with arrest requring ecmo. 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 New cp->lue/neck numbness TECHNIQUE: Imaging protocol: Computed tomographic angiography of the chest with contrast. Exam focused on the arteries. 3D rendering (Not supervised by radiologist): MIP and/or 3D reconstructed images were created by the technologist. Total images: 1 Radiation optimization: All CT scans at this facility use at least one of these dose optimization techniques: automated exposure control; mA and/or kV adjustment per patient size (includes targeted exams where dose is matched to clinical indication); or iterative reconstruction. Contrast material: OMNI 350; Contrast volume: 65 ml; Contrast route: INTRAVENOUS (IV); COMPARISON: 1. CR (CHEST, ) 08/15/2025 7:36 PM 2. CR (CHEST, ) 07/11/2025 11:46 AM RADIATION DOSE METRICS: Total DLP (mGy-cm): 462.13 FINDINGS: Limitations: Limited contrast density within the pulmonary arterial vasculature at the time of imaging. Patient respiratory motion or/and body habitus also limit sensitivity of the study. Pulmonary arteries: Main pulmonary artery enlargement 31 mm. Pulmonary artery contrast opacified density 240 HU. No large central or proximal pulmonary embolus identified (intermediate degree of certainty). Evaluation of distal segmental and subsegmental branches is limited by suboptimal contrast opacification, likely related to bolus timing, cardiac output, or respiratory motion. Aorta: Aorta mild atherosclerotic calcification. Other arteries: Minimal scattered atherosclerotic vascular calcifications. No major vessel critical narrowing, occlusion, or aneurysm. Thyroid: Thyroid normal. Lungs: Right middle lobe solitary anterior 11 mm diameter subpleural bleb. No lung consolidation, mass, or acute pulmonary abnormality identified. Pleural spaces: No pathologic pleural thickening, significant pleural effusion or pneumothorax. Heart: Normal heart size. Normal heart size. No pericardial fluid collection or pathologic thickening. Coronary arteries: Right coronary arterial stents. Lymph nodes: Mediastinum demonstrates multiple non pathologically enlarged lymph nodes. No mediastinal or hilar lymph nodes of pathologic dimensions. Bones/joints: Nonacute healed bilateral rib fracture deformities present, and healing sternal fracture or present in a with past history of myocardial infarction and arrest requiring ECMO. Mild generalized degenerative changes of the vertebral column characterized primarily by multilevel osteophyte formation, and degenerative facet arthrosis commensurate with patient's age. No intrinsic osseous abnormality identified. No acute displaced fracture, subluxation or dislocation. Soft tissues: Soft tissues are normal as visualized, demonstrating no masses or swelling/induration. CT/CT angio chest PE protcl [id number] IMPRESSION: 1. No central PE identified. Limited study; small peripheral emboli cannot be excluded. Repeat imaging may be considered if clinical suspicion remains high. 2. Pulmonary arterial enlargement concerning for pulmonary hypertension; consider TTE if warranted. 3. Nonspecific shotty mediastinal lymph nodes. 4. Right coronary arterial stents. 5. Otherwise no acute chest pathology identified. 6. Chronic healed sternal fracturee and healed bilateral rib fracture deformities may be accounted for by prior CPR. No acute displaced fracture. 7. Mild skeletal degenerative; and other chronic/non-acute findings as described above.
--- NOTE | 2025-08-15 19:26 | CTR_ITS ---
PROCEDURE INFORMATION: Exam: CTA Head With Contrast, Arteriography Exam date and time: 08/15/2025 7:58 PM Age: 65 years old Clinical indication: C/O numbness to left side of neck and left upper extremity. 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 New cp->lue/neck numbness TECHNIQUE: Imaging protocol: Computed tomographic angiography of the head with contrast. Exam focused on the arteries. 3D rendering (Not supervised by radiologist): MIP and/or 3D reconstructed images were created by the technologist. Radiation optimization: All CT scans at this facility use at least one of these dose optimization techniques: automated exposure control; mA and/or kV adjustment per patient size (includes targeted exams where dose is matched to clinical indication); or iterative reconstruction. Contrast material: OMNI 350; Contrast volume: 80 ml; Contrast route: INTRAVENOUS (IV); COMPARISON: CT head wo con* [id number] 07/03/2025 7:46 PM RADIATION DOSE METRICS: Total DLP (mGy-cm): 1103.6 FINDINGS: ANTERIOR CIRCULATION: Right internal carotid artery: Intracranial segment is patent with no significant stenosis. No aneurysm. Right middle cerebral artery: No occlusion or significant stenosis. No aneurysm. Right anterior cerebral artery: No occlusion or significant stenosis. No aneurysm. Left internal carotid artery: Intracranial segment is patent with no significant stenosis. No aneurysm. Left middle cerebral artery: No occlusion or significant stenosis. No aneurysm. Left anterior cerebral artery: No occlusion or significant stenosis. No aneurysm. POSTERIOR CIRCULATION: Right vertebral artery: No occlusion or significant stenosis. No aneurysm. Left vertebral artery: No occlusion or significant stenosis. No aneurysm. Basilar artery: No occlusion or significant stenosis. No aneurysm. Right posterior cerebral artery: No occlusion or significant stenosis. No aneurysm. Left posterior cerebral artery: No occlusion or significant stenosis. No aneurysm. Brain: No definite mass, mass effect, or midline shift. Cerebral ventricles: No ventriculomegaly. Bones/joints: Unremarkable. No acute fracture. Soft tissues: Unremarkable. PROCEDURE INFORMATION: Exam: CTA Neck With Contrast Exam date and time: 08/15/2025 7:58 PM Age: 65 years old Clinical indication: C/O numbness to left side of neck and left upper extremity. 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 New cp->lue/neck numbness TECHNIQUE: Imaging protocol: Computed tomographic angiography of the neck with contrast. Exam focused on the cervical segments of the vasculature. 3D rendering (Not supervised by radiologist): MIP and/or 3D reconstructed images were created by the technologist. Radiation optimization: All CT scans at this facility use at least one of these dose optimization techniques: automated exposure control; mA and/or kV adjustment per patient size (includes targeted exams where dose is matched to clinical indication); or iterative reconstruction. Contrast material: OMNI 350; Contrast volume: 80 ml; Contrast route: INTRAVENOUS (IV); COMPARISON: CT head wo con* [id number] 07/03/2025 7:46 PM RADIATION DOSE METRICS: Total DLP (mGy-cm): 1103.6 FINDINGS: Right common carotid artery: No stenosis. No dissection or occlusion. Right internal carotid artery: No stenosis of the extracranial segment. No dissection or occlusion. Right external carotid artery: No occlusion or stenosis of the origin. Left common carotid artery: No stenosis. No dissection or occlusion. Left internal carotid artery: No stenosis of the extracranial segment. No dissection or occlusion. Left external carotid artery: No occlusion or stenosis of the origin. Right vertebral artery: No stenosis. No dissection or occlusion. Left vertebral artery: No stenosis. No dissection or occlusion. Soft tissues: Normal. No significant soft tissue swelling. Bones/joints: No acute fracture. CT/CT angio headneck* [id number] IMPRESSION: No large vessel stenosis or occlusion. IMPRESSION: No stenosis or occlusion. REFERENCES: NASCET CRITERIA. The degree of stenosis in the cervical segment of the internal carotid artery is based on NASCET criteria. Normal is no stenosis. Mild is less than 50% stenosis. Moderate is 50-69% stenosis. Severe is 70% to 99% stenosis. Total occlusion is no detectable patent lumen.
--- NOTE | 2025-08-15 19:29 | W.ED.NECK ---
HPI - Neck Pain/Injury General: Chief Complaint: Neck Pain/Injury Stated Complaint: SOB, Numbness on LT side Time Seen by Provider: 08/15/25 19:12 History of Present Illness: Patient is a 65M male with a history of myocardial infarction (June 01) complicated by multiple VF arrests and requiring ECMO support, AF, recovered HF who presents with new onset brief stabbing CP with assoc numbness radiating from the back of his neck to his jawline and down his left arm. He remains active, walking up to two miles daily in intervals, and has made dietary modifications including reduced sodium intake and increased consumption of chicken, salads, vegetables, and fruits. He quit smoking but uses a nicotine chew. He denies recent illness and maintains good energy levels. He is currentyl taking Eliquis and Ticagrelor, had previous RCA stenting that restenosed that was successfully revascularized. No recent flulike symptoms, fevers, shortness of breath, syncope. He denies any recent trauma. He saw cardiology earlier this week that was happy with his steady improvements. Related Data Home Medications ?Medication ?Instructions ?Recorded ?Confirmed nitroglycerin 0.4 mg sublingual 0.4 mg sublingual Q5M PRN Chest 07/08/25 08/05/25 tablet Pain Previous Rx's ?Medication ?Instructions ?Recorded mupirocin 2 % topical ointment 1 applic topical BID #22 grams 07/08/25 rosuvastatin 20 mg tablet 20 mg PO .at bedtime #30 tabs 07/08/25 polyethylene glycol 3350 17 17 g PO DAILY #510 grams 07/20/25 gram/dose oral powder (Miralax) fluticasone furoate 100 1 inh inhalation Q24H #30 ea 07/26/25 mcg/actuation blister powder for inhalation (Arnuity Ellipta) umeclidinium 62.5 mcg-vilanterol 1 inh inhalation DAILY #60 ea 07/26/25 25 mcg/actuation powdr for inhalation (Anoro Ellipta) apixaban 5 mg tablet (Eliquis) 5 mg PO BID #60 tabs 08/05/25 furosemide 20 mg tablet 40 mg (2 x 20 mg) PO DAILY #30 tabs 08/05/25 losartan 25 mg tablet 25 mg PO DAILY #30 tabs 08/05/25 rosuvastatin 20 mg tablet 20 mg PO DAILY #30 tabs 08/05/25 spironolactone 25 mg tablet 25 mg PO DAILY #30 tabs 08/05/25 ticagrelor 90 mg tablet 90 mg PO BID #30 tabs 08/05/25 Allergies Allergy/AdvReac Type Severity Reaction Status Date / Time No Known Allergies Allergy Verified 08/05/25 13:00 Review of Systems General: Reports: 10 or more systems reviewed and unremarkable except in HPI and below PFSH ED PFSH: Medical History (Updated 08/15/25 @ 22:02 by Jose Godinez DO) Atrial fibrillation and flutter COPD (chronic obstructive pulmonary disease) History of smoking Left leg DVT CAD (coronary artery disease) Surgical History History of shoulder surgery right History of hernia repair age of 21 right inguinal History of coronary artery stent placement 2 stent at [facility] 06/11/25 Family History Mother Heart disease COPD exacerbation Father Cancer Kidney Brother Stroke Denies family history of Alzheimer's dementia Diabetes Dementia Social History Smoking and tobacco/nicotine status: former use of tobacco/nicotine Alcohol intake: former Substance/Drug Use: former Adopted: No Caregiver/support person: No Lives independently: Yes Household members: significant other Housing: Other Marital status: Life Partner Number of children: 3 service: No Current occupational status: retired Current occupational exposures/hazards: No Pets and animals: Yes Pets & animals: dog(s) Sexually active: No Do you think of yourself as: Straight/Heterosexual Current gender identity: Male Special lula needs: No Physical Exam Narrative: EXAM NARRATIVE: Patient well-appearing, afebrile, vital signs stable on arrival. Normal sinus rhythm with no murmurs, no leg swelling, 2+ pulses throughout, good cap refill. Breathing comfortably on room air, saturating well, able to speak in full sentences without getting short of breath. Abdomen soft, nontender nondistended. Full stroke assessment: Cranial nerves II through XII intact, PERRL, no nystagmus. 5 out of 5 motor and sensation to all 4 extremities, no pronator drift, [id number] intact bilaterally. No dysarthria. Course Vital Signs: Vital signs: Vital Signs Temperature 97.8 F 08/15/25 19:14 Pulse Rate 67 08/15/25 22:12 Respiratory Rate 18 08/15/25 22:12 Blood Pressure 144/66 08/15/25 22:12 Pulse Oximetry 97 08/15/25 22:12 Oxygen Delivery Me thod Room Air 08/15/25 19:14 Clincial Decision Support The following clinical decision support tools were used to aid in care of the patient HEART Score -> History: Slightly Suspicous, EKG: Normal, Age: 45-64 yrs, Risk Factors: >/=3 Risk Factors, Troponin: Baseline Trop <16 ng/L. Resulting HEART Score: 3. MDM - Neck Pain/Injury Medical Decision Making -ddx: ACS, dysrhythmia, aortic first carotid dissection, PE, CVA, TIA - Patient overall well-appearing, and seemingly progressing well since his recent cardiac arrest briefly requiring ECMO support, has had recovered heart failure, has been compliant on his Eliquis and Brilinta, had an episode of chest pain with associated neck/jaw/left upper extremity numbness, no associated trauma. Outside of stroke window and on blood thinners so not a TNK candidate, we will proceed with cardiac/basic labs and further assess with CTA head and neck, chest for further characterization. Declining needing any pain or nausea medication at this time. - Patient's ED evaluation very reassuring, CTA head and neck, chest with patent blood flow, no areas of acute ischemia. No obvious respiratory or cardiac processes, no evidence of PE. No dissections or aneurysms of concern. Labs reassuring for no acute cardiac ischemia, his vitals remained stable, he remained completely asymptomatic and with feeling while still he was very reassured and happy to be discharged home and will continue his lifestyle changes and follow-up with his PCP for further monitoring. Lab Data 08/15/25 19:34 08/15/25 20:24 Radiology Impressions Chest CTA 08/15/25 19:26 IMPRESSION: 1. No central PE identified. Limited study; small peripheral emboli cannot be excluded. Repeat imaging may be considered if clinical suspicion remains high. 2. Pulmonary arterial enlargement concerning for pulmonary hypertension; consider TTE if warranted. 3. Nonspecific shotty mediastinal lymph nodes. 4. Right coronary arterial stents. 5. Otherwise no acute chest pathology identified. 6. Chronic healed sternal fracturee and healed bilateral rib fracture deformities may be accounted for by prior CPR. No acute displaced fracture. 7. Mild skeletal degenerative; and other chronic/non-acute findings as described above. Chest X-Ray 08/15/25 19: IMPRESSION: 1. No new acute cardiopulmonary or adverse interval change radiographically. Chronic findings; stable. 2. Reticular interstitial thickening, likely chronic, without focal alveolar consolidation. Nonspecific; most consistent with chronic fibrotic interstitial change, age-related/nonspecific. Recommend correlation with clinical history; pulmonary function tests if clinically indicated. 3. Moderate age-appropriate degenerative spinal changes. Other chronic/non-acute findings as described above. Head/Neck CTA 08/15/25 19: IMPRESSION: No large vessel stenosis or occlusion. IMPRESSION: No stenosis or occlusion. REFERENCES: NASCET CRITERIA. The degree of stenosis in the cervical segment of the internal carotid artery is based on NASCET criteria. Normal is no stenosis. Mild is less than 50% stenosis. Moderate is 50-69% stenosis. Severe is 70% to 99% stenosis. Total occlusion is no detectable patent lumen. Laboratory Results WBC 11.16 10^3/uL (3.29-11.43) 08/15/25 19:34 RBC 3.81 10^6/uL (3.85-5.65) L 08/15/25 19:34 Hgb 12.10 g/dL (11.27-16.99) 08/15/25 19:34 Hct 36.2 % (37-53) L 08/15/25 19:34 MCV 95.0 fl (82-101) 08/15/25 19:34 MCH 31.8 pg (27-33) 08/15/25 19:34 MCHC 33.4 g/dL (30-55) 08/15/25 19:34 RDW 14.0 % (12.1-15.1) 08/15/25 19:34 Plt Count 258 10^3/cmm (157-399) 08/15/25 19:34 MPV 9.1 fL (7.4-10.4) 08/15/25 19:34 Neut % (Auto) 60.0 % 08/15/25 19:34 Lymph % (Auto) 28.5 % 08/15/25 19:34 Saunders % (Auto) 7.0 % 08/15/25 19:34 Eos % (Auto) 3.4 % 08/15/25 19:34 Baso % (Auto) 0.7 % 08/15/25 19:34 Neut # (Auto) 6.69 10^3/uL (1.8-7.7) 08/15/25 19:34 Lymph # (Auto) 3.2 10^3/uL (0.8-4.8) 08/15/25 19:34 Saunders # (Auto) 0.8 10^3/uL (0.2-0.9) 08/15/25 19:34 Eos # (Auto) 0.4 10^3/uL (0.0-0.8) 08/15/25:34 Baso # (Auto) 0.1 10^3/uL (0.0-0.1) 08/15/25:34 Nucleated RBC % (auto) 0 % 08/15/25:34 Nucleated RBCs # 0.0 /100WBC 08/15/25 19:34 PT 14.70 SECONDS (12.1-14.9) 08/15/25 20:24 INR 1.07 (0.8-1.2) 08/15/25 20:24 APTT 29.9 SECONDS (23.9-36.7) 08/15/25 20:24 Sodium 132 mmol/L (136-145) L 08/15/25 20:24 Potassium 3.8 mmol/L (3.5-5.1) 08/15/25 20:24 Chloride 99 mmol/L (98-107) 08/15/25 20:24 Carbon Dioxide 24 mmol/L (22-29) 08/15/25 20:24 Anion Gap 12.8 (5-19) 08/15/25 20:24 BUN 18 mg/dL (8-23) 08/15/25 20:24 Creatinine 0.7 mg/dL (0.7-1.2) 08/15/25 20:24 GFR Calculation 113.5 mL/min (90-130) 08/15/25 20:24 Glucose 123 mg/dL (65-115) H 08/15/25 20:24 Calculated Osmolality 277 mOsm/kg (285-295) L 08/15/25 20:24 Lactic Acid 0.8 mmol/L (0.5-2.2) 08/15/25 20:24 Calcium 8.9 mg/dL (8.5-10.5) 08/15/25 20:24 Phosphorus 3.2 mg/dL (2.5-4.5) 08/15/25 20:24 Magnesium 2.1 mg/dL (1.7-2.3) 08/15/25 20:24 Troponin T Baseline 16 ng/L (0-15) H 08/15/25 20:24 Troponin T 60 Minute 16.59 ng/L (0-15) H 08/15/25 21:20 Delta Troponin T 0.59 ABS# (0-10) 08/15/25 21:20 C-React Prot High Sens 0.330 mg/dL (0.0-0.3) H 08/15/25 20:24 NT-Pro-B Natriuret Pep 293 pg/mL (0-125) H 08/15/25 20:24 Lipase Cancelled 08/15/25 19:34 All radiology interpretation(s) finalized by discharge Discharge Plan Discharge Patient Disposition: Home Clinical Impression: Chest pain, Paresthesia of upper extremity Condition: Stable Prescriptions: No Action ticagrelor 90 mg tablet 90 mg PO BID Qty: 30 2RF Eliquis 5 mg tablet 5 mg PO BID Qty: 60 3RF rosuvastatin 20 mg tablet 20 mg PO DAILY Qty: 30 3RF spironolactone 25 mg tablet 25 mg PO DAILY Qty: 30 3RF losartan 25 mg tablet 25 mg PO DAILY Qty: 30 3RF furosemide 20 mg tablet 40 mg PO DAILY Qty: 30 3RF umeclidinium-vilanterol [Anoro Ellipta] 62.5-25 mcg/actuation blister with device 1 inh inhalation DAILY Qty: 60 2RF fluticasone furoate [Arnuity Ellipta] 100 mcg/actuation blister with device 1 inh inhalation Q24H Qty: 30 2RF nitroglycerin 0.4 mg tablet, sublingual 0.4 mg sublingual Q5M PRN (Reason: Chest Pain) Rx Instructions: do not exceed 3 doses per episode rosuvastatin 20 mg tablet 20 mg PO .at bedtime Qty: 30 0RF mupirocin 2 % ointment 1 applic topical BID Qty: 22 0RF polyethylene glycol 3350 [Miralax] 17 gram/dose powder 17 g PO DAILY Qty: 510 0RF Rx Instructions: mix with 8 oz of warm water Discharge Orders: Discharge ED (Routine); Ordered 08/15/25 Ordered By: Jose Godinez Referrals: Monica Rangel, [employer] [Primary Care Provider, [facility]] Discharge Diet: Usual diet Discharge Activity: Increase activity as tolerated Patient Instructions: Opioid Safety, Pain Management, Patient Portal & [place] Instructions Activity Restrictions/Additional Instructions: You were seen for your episode of chest pressure with numbness, your evaluated with labs, an EKG, CT scans that were ultimately very reassuring for no cardiac, lung, infectious, blood vessel issues today. All your laboratory tests were also reassuring. You seem to be progressing well from your recent large cardiac event and continued which you are doing. It is possible that you had a slight impingement of peripheral nerves causing her symptoms, and treated listen to your body when you are exercising so you do not overdo it but otherwise continue as originally scheduled with your daily activities. Return to the ED with severe recurrence of your symptoms, chest pains, episodes of passing out, breathing difficulties, any other emergent concerns. 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
[2025-08-15 19:40] LABS: Hematocrit 36.2 % (37-53); Hemoglobin 12.10 g/dL (11.27-16.99); Mean Corpuscular HGB Conc 33.4 g/dL (30-55); Mean Corpuscular Hemoglobin 31.8 pg (27-33); Mean Corpuscular Volume 95.0 fl (82-101); Nucleated Red Blood Cells % 0 %; Platelet Count 258 10^3/cmm (157-399); Red Blood Count 3.81 10^6/uL (3.85-5.65); White Blood Count 11.16 10^3/uL (3.29-11.43)
[2025-08-15] MEDS: iohexol 350 mg/mL 500 mL Btl (per mL) IV (20:08)
--- NOTE | 2025-08-15 20:27 | ECG_ITS ---
[facility] Date: 2025-08[facility]15 Pat Name: Parmjit Youssef Department: Room: Gender: Male Manager Adult: : 1960 Requested By: Jose Godinez Order Number: [id number] Reading MD: LEVI SIMONS Measurements Intervals [place] Rate: 72 P: 68 [place]: 175 QRS: -40 QRSD: 94 T: -52 QT: 403 QTc: 442 Interpretive Statements SINUS RHYTHM INFERIOR MYOCARDIAL INFARCTION , OF INDETERMINATE AGE [40+ ms Q WAVE AND/OR ST/T ABNORMALITY IN II/aVF] Compared to ECG 07/11/2025 13:55:20 Left-axis deviation no longer present T-wave abnormality no longer present Possible ischemia no longer present Myocardial infarct finding still present Electronically Signed On 08-18-2025 20:45:31 [employer] by LEVI SIMONS [email or web address]
[2025-08-15 20:48] LABS: Lactic Sepsis W/Reflex 0.8 mmol/L (0.5-2.2)
[2025-08-15 20:51] LABS: Troponin(5th) Baseline 16 ng/L (0-15)
[2025-08-15 20:59] LABS: Anion Gap 12.8 (5-19); Blood Urea Nitrogen 18 mg/dL (8-23); Calcium 8.9 mg/dL (8.5-10.5); Carbon Dioxide 24 mmol/L (22-29); Chloride 99 mmol/L (98-107); Glucose 123 mg/dL (65-115); Magnesium 2.1 mg/dL (1.7-2.3); NT Pro B Type Natriuretic Pept 293 pg/mL (0-125); Osmolality Calculated 277 mOsm/kg (285-295); Potassium 3.8 mmol/L (3.5-5.1); Sodium 132 mmol/L (136-145)
[2025-08-15 21:01] LABS: INR 1.07 (0.8-1.2); Prothrombin Time 14.70 SECONDS (12.1-14.9)
[2025-08-15 21:02] LABS: Partial Thromboplastin Time 29.9 SECONDS (23.9-36.7)
[2025-08-15 22:49] LABS: CRP High Sensitivity Cardiac 0.330 mg/dL (0.0-0.3)
== END 2025-08-15 22:13 | disposition home or self-care (01) ==
PROVIDERS: Emergency Provider Student in an Organized Health Care Education/Training Program; PCP Nurse Practitioner
DX: R07.9 Chest pain, unspecified (principal); R20.2 Paresthesia of skin; Z79.01 Long term (current) use of anticoagulants; Z87.891 Personal history of nicotine dependence; I25.10 Atherosclerotic heart disease of native coronary artery without angina pectoris; J44.9 Chronic obstructive pulmonary disease, unspecified
CPT/HCPCS: 36415; 36416; 70496; 70498; 71045; 71275; 80048; 82962; 83605; 83735; 83880; 84100; 84484; 85025; 85610; 85730; 86141; 93005; 99285